=== PATIENT | male | born 1950 | race Caucasian/White ===

== ENCOUNTER 2023-10-05 10:18 | Outpatient (OUT) | payer MEDICARE, MEDICAID, SELFPAY ==
--- NOTE | 2023-10-05 | XR_ITS ---
The [address] [address] Patient Name: GAGANDEEP PARKER MRN: [id number] date: 1950 Sex: M Assigned Patient Location: Current Patient Location: Accession/Order Number: [id number] Exam Date: 10/05/2023 10:50 Report Date: 10/05/2023 12:14 At the request of: JULIAN JOHNSON Procedure: XR foot JONATHAN min 3V EXAMINATION: XR ankle JONATHAN min 3V, XR foot JONATHAN min 3V HISTORY: BILATERAL ANKLE PAIN COMPARISON: No relevant comparison available. FINDINGS: RIGHT FINDINGS: BONES: No acute fracture or dislocation. Mild to moderate degenerative changes most significant at the first metatarsal-phalangeal joint. There is lytic changes and associated heterogeneous soft tissue calcifications along the posterior calcaneus at the Achilles insertion extending to the skin surface SOFT TISSUES: Soft tissue fullness/mass posterior to the calcaneus. Vascular calcifications. OTHER: Negative. LEFT FINDINGS: BONES: No acute fracture or dislocation. Remote fibular fracture fixed with a lateral plate and screws. Mild to moderate degenerative changes with joint space narrowing and marginal osteophyte formation most significant along the ankle. Remote fracture inferior medial malleolus SOFT TISSUES: Vascular calcifications OTHER: Negative. XR/XR foot JONATHAN min 3V IMPRESSION: RIGHT CONCLUSION: Suspected osteomyelitis involving the posterior superior calcaneus at the Achilles insertion LEFT CONCLUSION: No acute abnormality Electronically authenticated by: SABRINA HOOPER Date: 10/05/2023 12:14
--- NOTE | 2023-10-05 | XR_ITS ---
The [address] [address] Patient Name: GAGANDEEP PARKER MRN: [id number] date: 1950 Sex: M Assigned Patient Location: Current Patient Location: Accession/Order Number: [id number] Exam Date: 10/05/2023 10:50 Report Date: 10/05/2023 12:14 At the request of: JULIAN JOHNSON Procedure: XR ankle JONATHAN min 3V EXAMINATION: XR ankle JONATHAN min 3V, XR foot JONATHAN min 3V HISTORY: BILATERAL ANKLE PAIN COMPARISON: No relevant comparison available. FINDINGS: RIGHT FINDINGS: BONES: No acute fracture or dislocation. Mild to moderate degenerative changes most significant at the first metatarsal-phalangeal joint. There is lytic changes and associated heterogeneous soft tissue calcifications along the posterior calcaneus at the Achilles insertion extending to the skin surface SOFT TISSUES: Soft tissue fullness/mass posterior to the calcaneus. Vascular calcifications. OTHER: Negative. LEFT FINDINGS: BONES: No acute fracture or dislocation. Remote fibular fracture fixed with a lateral plate and screws. Mild to moderate degenerative changes with joint space narrowing and marginal osteophyte formation most significant along the ankle. Remote fracture inferior medial malleolus SOFT TISSUES: Vascular calcifications OTHER: Negative. XR/XR ankle JONATHAN min 3V IMPRESSION: RIGHT CONCLUSION: Suspected osteomyelitis involving the posterior superior calcaneus at the Achilles insertion LEFT CONCLUSION: No acute abnormality Electronically authenticated by: SABRINA HOOPER Date: 10/05/2023 12:14
== END 2023-10-05 10:19 | disposition home or self-care (01) ==
PROVIDERS: Family Provider Family Medicine; PCP Nurse Practitioner Adult Health; Visit Provider Podiatrist Foot & Ankle Surgery
DX: M79.671 Pain in right foot (principal); M79.672 Pain in left foot; M25.571 Pain in right ankle and joints of right foot; M25.572 Pain in left ankle and joints of left foot; E11.621 Type 2 diabetes mellitus with foot ulcer; L97.412 Non-pressure chronic ulcer of right heel and midfoot with fat layer exposed; L97.421 Non-pressure chronic ulcer of left heel and midfoot limited to breakdown of skin
CPT/HCPCS: 11043; 73610; 73630; A6213; G0463

== ENCOUNTER 2023-10-20 07:32 | Outpatient (OUT) | payer MEDICARE, MEDICAID, SELFPAY ==
--- NOTE | 2023-10-20 07:38 | MR_ITS ---
The [address] [address] Patient Name: GAGANDEEP PARKER MRN: [id number] date: 1950 Sex: M Assigned Patient Location: MRI Current Patient Location: MRI Accession/Order Number: [id number] Exam Date: 10/20/2023 07:50 Report Date: 10/20/2023 12:22 At the request of: ELIZABETH SNOW Procedure: MR ankle RT wo con EXAM: MR ankle RT wo con REASON FOR EXAM: Chronic Non Healing Ulcer Right Heel. TECHNIQUE: Multiplanar, multisequence imaging of the right ankle was performed without contrast COMPARISON: Radiographs 10/05/2023. FINDINGS: There is deep soft tissue ulceration along the posterior lateral aspect of the calcaneus. There is diffuse abnormal marrow signal involving the posterior calcaneus with cortical destruction consistent with osteomyelitis. No definite evidence of septic arthritis involving the posterior subtalar joint. Chronic tendinosis with high-grade partial tearing of the distal Achilles tendon. The remaining bone marrow signal is without fracture or osteonecrosis. The talar dome appears congruent with intermediate grade chondrosis. The subtalar joint is congruent. The sinus tarsi is mildly edematous, potentially reactive. The midfoot appears congruent. Atrophy and edema the plantar musculature is consistent with denervation. Diffuse probable cellulitis without drainable fluid collection or abscess. There is thickening and intermediate signal of the plantar fascia with an inferior calcaneal spur. A definite tear not identified. Laterally, the peroneal tendons are thickened with intermediate signal consistent with tendinosis. No tear. The superficial peroneal retinaculum is intact. Lateral ligaments are grossly intact. Medially, the medial flexor tendons demonstrate normal thickness and signal without tendinosis or tear. The deep deltoid ligament is intact. The spring ligament is intact. The partially imaged Lisfranc ligament appears intact. Anteriorly, the anterior extensor tendons demonstrate normal thickness and signal without tendinosis or tear. MR/MR ankle RT wo con IMPRESSION: 1. Deep soft tissue ulceration along the posterior aspect of the calcaneus with diffuse abnormal marrow signal of the calcaneus consistent with osteomyelitis. 2. 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 3. Diffuse cellulitis without drainable fluid collection or abscess. 4. Other incidental findings as above. Electronically authenticated by: NEELAM ELLIS Date: 10/20/2023 12:22
== END 2023-10-20 07:33 | disposition home or self-care (01) ==
LOC: MRI 07:32
PROVIDERS: Family Provider Family Medicine; PCP Nurse Practitioner Adult Health; Visit Provider Podiatrist Foot & Ankle Surgery
DX: M86.671 Other chronic osteomyelitis, right ankle and foot (principal); M76.61 Achilles tendinitis, right leg; L03.115 Cellulitis of right lower limb
CPT/HCPCS: 73721

== ENCOUNTER 2023-10-22 09:36 | Outpatient (OUT) | payer MEDICARE, MEDICAID, SELFPAY | END 2023-10-22 09:37 | disposition home or self-care (01) | LOC: WC 09:36 | PROVIDERS: Family Provider Family Medicine; PCP Nurse Practitioner Adult Health; Visit Provider Podiatrist Foot & Ankle Surgery | DX: E11.621 Type 2 diabetes mellitus with foot ulcer (principal); L97.412 Non-pressure chronic ulcer of right heel and midfoot with fat layer exposed | CPT/HCPCS: G0463 ==

== ENCOUNTER 2023-11-05 11:15 | Outpatient (OUT) | payer MEDICARE, MEDICAID, SELFPAY | END 2023-11-05 11:16 | disposition home or self-care (01) | LOC: WC 11:15 | PROVIDERS: Family Provider Family Medicine; PCP Nurse Practitioner Adult Health; Visit Provider Podiatrist Foot & Ankle Surgery | DX: E11.621 Type 2 diabetes mellitus with foot ulcer (principal); L97.412 Non-pressure chronic ulcer of right heel and midfoot with fat layer exposed; L97.421 Non-pressure chronic ulcer of left heel and midfoot limited to breakdown of skin | CPT/HCPCS: 11043; A6213 ==

== ENCOUNTER 2023-11-11 12:25 | Outpatient (OUT) | payer MEDICARE, MEDICAID, SELFPAY ==
--- NOTE | 2023-11-11 12:30 | ECG_ITS ---
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
--- NOTE | 2023-11-11 12:30 | XR_ITS ---
The [address] [address] Patient Name: GAGANDEEP PARKER MRN: [id number] date: 1950 Sex: M Assigned Patient Location: [facility] Current Patient Location: [facility] Accession/Order Number: [id number] Exam Date: 11/11/2023 13:28 Report Date: 11/11/2023 13:45 At the request of: JULIAN JONHSON Procedure: XR chest 2V EXAM: XR chest 2V HISTORY: Preop exam COMPARISON: 04/04/2013 TECHNIQUE: Upright PA and lateral chest x-ray FINDINGS: Heart is not enlarged and the vasculature is not distended. No acute infiltrate, effusion or pneumothorax is identified. Mild flattening of the hemidiaphragms suggest COPD. A relatively remote compression fracture with kyphoplasty is seen in the spine. XR/XR chest 2V IMPRESSION: No acute infiltrate or evidence of cardiac decompensation. Except for the compression fracture and kyphoplasty in the spine, the overall appearance has not changed significantly. Electronically authenticated by: JULIAN KOVACS Date: 11/11/2023 13:45
--- OUTSIDE RECORDS SUMMARY | 2023-11-11 12:33 | XMS_ITS | CCD ---
Author Organization [facility] Care Team Providers Care Cork Insulator Name Role Phone Seth Cummings Unavailable Marcella Christian Unavailable Janine Melvin Unavailable Anglim, ECG TECHNICIAN Kota Primary Care Provider Anglim, ECG TECHNICIAN Kota Attending Provider Anglim, ECG TECHNICIAN Kota Primary Care Provider Anglim, ECG TECHNICIAN Kota Attending Provider MD Brandy Banks Attending Provider Angreece ALANIZ Kota Primary Care Provider UNIQUE SWIFT Referring Unavailable RBANDY BAUTISTA Attending Unavailable UNIQUE SWIFT Referring Unavailable SUZE LEVIN Attending Unavailable Anglim ECG TECHNICIAN-BUSHWALKING GUIDE, Kota A Primary Care Provider Anglim, ECG TECHNICIAN Kota Primary Care Provider Anglim, ECG TECHNICIAN Kota Attending Provider Anglim, ECG TECHNICIAN Kota Primary Care Provider IAIN Wilkes Attending Provider [phone] DO Jose Enrique Almendarez Emergency Provider MD Steven Horta Attending Provider JO VERONICA Referring Unavailable ANGLIM, KOTA A Primary Care Unavailable AMILCAR NORTON Referring Unavailable ANGLIM, KOTA A Primary Care Unavailable YING Presley (WND) Attending Provider [phone] Anglim, Kota Primary Care Unavailable Beau Presley (WND) Admitting Unavailable Beau Presley (WND) Attending Unavailable Anglim, Kota Primary Care Unavailable LangenbergSteven T Admitting Unavailabl e Langenberg, Steven T Attending Unavailabl e Anglim, Kota Primary Care Unavailable Langenberg, Steven T Admitting Unavailabl e Langenberg, Steven T Attending Unavailabl e Anglim, Kota Primary Care Unavailable Anglim, Kota Attending Unavailable Anglim, Kota Admitting Unavailable Anglim, Kota Primary Care Unavailable CopseyMartha Admitting Unavailable CopseySethia Attending Unavailable TupaJose Enrique Attending Unavailable Anglim, Kota Primary Care Unavailable Jose Enrique Almendarez Admitting Unavailable ANGLIM, KOTA A Primary Care Unavailable ANGLIM, KOTA A Primary Care Unavailable MERCYKIRILL SAUCEDA Attending Unavailable MAGALY PATEL Admitting Unavailable ANGLIM, KOTA A Primary Care Unavailable ELLIS MOELLER Attending Unavailab AMILCAR Colón Admitting Unavailable ANGLIM, KOTA A Primary Care Unavailable PADMA BLAIR Attending Unavailable BLAIRPADMA Attending Unavailable BLAIRPADMA Referring Unavailable ANGLIM, KOTA A Primary Care Unavailable BALIRPADMA Attending Unavailable BLAIRPADMA T Referring Unavailable ANGLIM, KOTA A Primary Care Unavailable MERCYKIRILL SAUCEDA Attending Unavailable MERCYKIRILL SAUCEAD Referring Unavailable ANGLIM, KOTA A Primary Care Unavailable ANGLIM, KOTA A Primary Care Unavailable RADHA DUARTE Attending Unavailable YUSRA KOENIG Attending Unavailable YUSRA KOENIG Referring Unavailable ANGLIM, KOTA A Primary Care Unavailable ANGLIM, KOTA A Primary Care Unavailable THAI ORLANDO Attending Unavailable JO VERONICA Attending Unavailable ANGLIM, KOTA A Referring Unavailable ANGLIM, KOTA A Primary Care Unavailable VENUS RAMOS I Attending Unavailable ANGLIM, KOTA A Referring Unavailable ANGLIM, KOTA A Primary Care Unavailable JO VERONICA Attending Unavailable ANGLIM, KOTA A Referring Unavailable ANGLIM, KOTA A Primary Care Unavailable Medications Current Medications Medication Drug Class(es) Dates Sig (Normalized) Sig (Original) 3 ML semaglutide 1.34 MG/ML Pen Injector [Ozempic] (1 source) Start: 11-27-2023 inject 1 mg by subcutaneous injection every week Ozempic (1 MG/DOSE) 4 MG/3ML 1mg Subcutaneous once weekly Apr, Active acetaminophen 300 mg / HYDROcodone bitartrate 7.5 mg oral tablet (20 sources) Opioid Agonist Start: 09-30-2023 take 1 tablet by mouth every six hours Hydrocodone-Acetami nophen Active 1 TAB PO Every 6 hours 20 5 September 30, 2023 Start: 11-07-2020 End: 05-11-2022 take 1 tablet by mouth every four to six hours Hydrocodone-Acetaminophen Discontinued 1 - 2 TAB PO EVERY 4-6 HOURS 30 November 07, 2020 May 11, 2022 12:18pm Start: 08-09-2020 End: 10-25-2020 take 1 tablet by mouth every four hours Hydrocodone-Acetaminophen Discontinued 1 TAB PO Q4H 0 August 09, 2020 October 25, 2020 11:54am Start: 08-08-2020 End: 10-25-2020 take 1 tablet by mouth every four to six hours Hydrocodone-Acetaminophen Discontinued 1 - 2 TAB PO EVERY 4-6 HOURS 50 7 August 08, 2020 October 25, 2020 11:54am Start: 05-27-2016 HYDROcodone-ac etaminophen (NORCO) 5-325 mg per tablet amLODIPine 2.5 mg oral tablet (20 sources) Dihydropyridine Calcium Channel Lori Start: 11-09-2021 take 1 tablet by mouth in the morning amLODIPine (NORVASC) 2.5 mg tablet Take 1 tablet (2.5 mg total) by mouth in the morning. 0 11/09/2021 Active Start: 03-31-2019 take 10 mg by mouth once daily Amlodipine Active 10 MG PO Daily March 31, 2019 12:00am take 1 tablet by roberto th every twenty-four hours amLODIPine Besylate 10 MG 1 tablet Oral Once a day for 30 Active take 1 tablet by roberto th once daily amLODIPine (NORVASC) 5 mg tablet Take 5 mg by mouth once daily. 0 Active Comment on above: Take 5 mg by mouth o nce daily. Arthritis Pain 650 MG (20 sources) take 1 tablet by roberto th every eight hours as needed take 1 tablet by roberto th every eight hours as needed Arthritis Pain 650 MG 1 tablets as neede d Orally every 8 hrs Active busPIRone hydrochloride 10 mg oral tablet (20 sources) Start: 05-11-2022 take 10 mg by mouth once daily Buspirone Active 10 MG PO Daily May 11, 2022 1:00am busPIRone (BUSPA R) 15 mg tablet Take 1 tablet (15 mg total) by mouth in the morning and 1 tablet (15 mg total) before bedtime. One tablet upon awakening and one tablet between 5pm-6pm. 0 Active take 1 tablet by mouth three marialuisa es daily busPIRone (BUSPAR) 10 mg tablet Take 10 mg by mouth three times daily. 0 Active Comment on above: Take 10 mg by mouth three times daily. cefadroxil 500 mg oral capsule (4 sources) Cephalosporin Antibacterial Start: 09-28-19 End: 10-05-19 24 take 500 mg by mouth once daily Cefadroxil Active 500 MG PO Daily September 30, 2023 12:00am docusate sodium 100 mg oral capsule (18 sources) Start: 08-09-19 End: 10-26-19 21 take 1 capsule by mouth twice daily Docusate Sodium (Dok) 100 mg capsule Active 100 MG PO Twice daily October 25, 2020 11:55am donepezil hydrochloride 5 mg oral tablet (20 sources) Start: 05-11-20 22 take 5 mg by mouth once daily Donepezil Active 5 MG PO Daily May 11, 2022 1:00am doxycycline hyclate 100 mg oral capsule (20 sources) Tetracycline-class Drug Start: 09-27-19 take 100 mg by mouth twice daily Doxycycline Hyclate Active 100 MG PO Twice daily September 27, 2023 12:00am Start: 11-07-2020 End: 05-11-2022 take 100 mg by mouth twice daily Doxycycline Hyclate Discontinued 100 MG PO Twice daily 04 01November 07, 2020 12:00am May 11, 2022 12:18pm Start: 01-21-2020 End: 10-25-2020 take 100 mg by mouth twice daily Doxycycline Hyclate Discontinued 100 MG PO Twice daily 16 04January 21, 2020 12:00am October 25, 2020 11:54am take 1 capsule by [facility] every twenty-four hours Doxycycline Hyclate 100 MG 1 capsule Orally Once a day Not-Taking hydrOXYzine pamoate 50 mg oral capsule (18 sources) Antihistamine Vistaril 50 MG 1 capsule as needed Orally hs Active 3 ml insulin aspart, human 100 unt/ml pen injector (18 sources) Insulin Analog Fiasp FlexTouch 100 UNIT/ML 1:10 icr ac tid. 1:40 corrective scale ac tid (hs if >200 half dose) Subcutaneous as directed Active 3 ml insulin detemir 100 unt/ml pen injector (20 sources) Insulin Analog Start: 9 inject 3 [IU] by subcutaneous injection once daily at bedtime Insulin Detemir U-100 (Levemir Flextouch U100 Insulin) 100 unit/mL (3 mL) Insulin Pen Active 3 UNIT SUBCUT Daily at bedtime March 30, 2019 11:00pm Start: 03-31-2019 Insulin Detemi r U-100 (Levemir Flextouch U-100 Insuln) 100 unit/mL (3 mL) Insulin Pen Active 60 UNIT SUBCUT Daily at bedtime March 30, 2019 11:00pm insulin detemir U-100 (LEVEMIR) 100 unit/mL injection Inject under the skin nightly. 0 Active Levemir FlexTouc h 100 UNIT/ML 11 units Subcutaneous hs Active Levemir FlexTouc h 100 UNIT/ML 40 units Subcutaneous hs Active Comment on above: insulin detemir Insu nelli Detemir U-100 Active 17 UNIT Subcutaneous Daily March 31, 2019 10:08am 03-31-2019 [facility] ([id number]) Insulin Detemir U-100 (Levemir Flexpen) 100 unit/mL (3 mL) insulin pen (5 sources) Start: 4 inject 10 [IU] by subcutaneous injection once daily at bedtime Insulin Detemir U-100 (Levemir Flexpen) 100 unit/mL (3 mL) insulin pen Active 10 UNIT SUBCUT Daily at bedtime September 09, 2023 12:00am 3 ml insulin lispro 100 unt/ml pen injector (20 sources) Insulin Analog Start: 1 inject 1 dose by subcutaneous injection twice daily Insulin Lispro (Humalog Kwikpen Insulin) 100 unit/mL Insulin Pen Active 1 sliding scale dose SUBCUT Twice daily October 24, 2020 11:00pm Start: 10-25-2020 inject 5 [IU] by sub cutaneous injection before mealtime Insulin Lispro (Humalog Kwikpen Insulin) 100 unit/mL Insulin Pen Active 5 UNIT SUBCUT before meals October 24, 2020 11:00pm HumaLOG KwikPen 100 UNIT/ML Corrective Scale 1:40 ac TID & hs for BS >200 1/2 dose Subcutaneous ac tid and hs Active Insulin Lispro (Humalog Kwikpen Insulin) 100 unit/mL insulin pen (5 sources) Start: 09-09-2023 Insulin Lispro (Humalog Kwikpen Insulin) 100 unit/mL insulin pen Active 1 sliding scale dose SUBCUT Use as Directed September 09, 2023 12:00am 3 ml insulin lispro 50 unt/ml / insulin lispro protamine, human 50 unt/ml pen injector (2 sources) Insulin Analog insulin lispro protamin-lispro (HumaLOG Mix 50-50 KwikPen) 100 unit/mL (50-50) insulin pen Inject under the skin 2 (two) times a day before meals. 0 Active lamoTRIgine 25 mg oral tablet (20 sources) Mood Stabilizer, Anti-epileptic Agent Start: 05-11-2022 take 25 mg by mouth once daily Lamotrigine Active 25 MG PO Daily May 11, 2022 1:00am take 2 tablets by mouth in the m orning lamoTRIgine (LaMICtal) 25 mg tablet Take 2 tablets (50 mg total) by mouth in the morning. 0 Active lamoTRIgine 25 m g (35) DsPk Take by mouth. Take 25 mg by mouth every other day during Weeks 1 and 2, THEN 25 mg once daily during Weeks 3 and 4, THEN 50 mg once daily during Week 5 0 Active Comment on above: Take by mouth. Take 25 mg by mouth every other day during Weeks 1 and 2, THEN 25 mg once daily during Weeks 3 and 4, THEN 50 mg once daily during Week 5 Levemir FlexTouch 100 UNIT/ML (3 sources) Levemir FlexTouc h 100 UNIT/ML 12 units Subcutaneous hs Active Levemir FlexTouc h 100 UNIT/ML 11 units Subcutaneous hs Active loperamide hydrochloride 2 mg oral tablet (1 source) Opioid Agonist take 1 tablet by mouth four times daily as needed for diarrhea loperamide (IMODIUM A-D) 2 mg tablet Take 1 tablet (2 mg total) by mouth 4 (four) times a day as needed for diarrhea. 0 Active losartan potassium 100 mg oral tablet (20 sources) Angiotensin 2 Receptor Lori Start: 9 take 50 mg by mouth once daily in the morning Losartan Active 50 MG PO Every morning March 31, 2019 12:00am Start: 03-31-2019 take 100 mg by mouth once dc y Losartan Active 100 MG PO Daily March 30, 2019 11:00pm Start: 03-10-2018 End: 03-15-2018 take 12.5 mg by mouth once daily Losartan Discontinued 12.5 MG PO Daily March 10, 2018 12:00am March 15, 2018 8:50am take 2 tablets by mo ut in the morning losartan (COZAAR) 50 mg tablet Take 2 tablets (100 mg total) by mouth in the morning. 0 Active take 1 tablet by roberto th every twelve hours Losartan Potassium 50 MG 1 tablet Orally Twice a day Active take 1 tablet by roberto th every twenty-four hours Losartan Potassium 50 MG 1 tablet Orally Once a day Active Comment on above: Take 50 mg by mouth once daily. magnesium oxide 400 mg oral tablet (1 source) take 1 tablet by mouth in the morning, then take 1 tablet by mouth at bedtime magnesium oxide (MAGOX) 400 mg tablet Take 1 tablet (400 mg total) by mouth in the morning and 1 tablet (400 mg total) before bedtime. 0 Active Magnesium Oxide-Mg Aa Chelate (Magnesium (Oxide/Aa Chelate)) 300 mg capsule (5 sources) Start: 4 take 1 capsule by mouth twice daily Magnesium Oxide-Mg Aa Chelate (Magnesium (Oxide/Aa Chelate)) 300 mg capsule Active 300 CAP PO Twice daily August 19, 2023 1:00am metFORMIN hydrochloride 1000 mg oral tablet (20 sources) Biguanide Start: 4 take 1 tablet by mouth twice daily Metformin Active 1000 MG PO Twice daily August 19, 2023 1:00am FreeTextSig: TAKE 1 TABLET BY MOUTH TWO TIMES A DAY Oral; Note: Source Status: Taking; Provider: Emiliano Randle Start: 08-06-2020 End: 05-11-2022 take 1000 mg by mouth twice daily Metformin Discontinued 1000 MG PO Twice daily August 06, 2020 1:00am May 11, 2022 12:18pm Start: 03-08-2017 End: 08-06-2020 take 1000 mg by mouth twice daily Metformin Discontinued 1000 MG PO Twice daily March 08, 2017 12:00am August 06, 2020 6:18pm take 1 tablet by roberto th twice daily at mealtime metFORMIN (GLUCOPHAGE) 850 mg tablet Take 850 mg by mouth twice daily with meals. 0 Active Comment on above: Take 850 mg by mouth twice daily with meals. 24 hr metoprolol succinate 50 mg extended release oral tablet (20 sources) beta-Adrenergic Lori Start: 03-31-2019 take 50 mg by mouth once daily Metoprolol Succinate Active 50 MG PO Daily March 31, 2019 12:00am Start: 04-04-2018 take 1 tablet by roberto th every twenty-four hours metoprolol succinate ER (TOPROL XL) 50 mg 24 hr tablet Take 50 mg by mouth. 0 04/04/2018 Active take 1 tablet by roberto th every twenty-four hours in the morning metoprolol succinate XL (TOPROL XL) 25 mg 24 hr tablet Take 1 tablet (25 mg total) by mouth in the morning. 0 Active take 1 tablet by roberto th every twenty-four hours Metoprolol Succinate ER 25 MG 1 tablet Orally Once a day for 30 days Active Comment on above: Take 50 mg by mouth. metroNIDAZOLE 375 mg oral capsule (4 sources) Nitroimidazole Antimicrobial Start: 10-05-19 24 take 1 capsule by mouth twice daily Metronidazole (Flagyl) 375 mg capsule Active 375 MG PO Twice daily 16 04October 05, 2023 12:00am Start: 05-04-2016 metroNIDAZOLE (FLAGYL) 500 mg tablet Ozempic (0.25 or 0.5 MG/DOSE) 2 MG/1.5ML (1 source) Ozempic (0.25 or 0.5 MG/DOSE) 2 MG/1.5ML as directed Subcutaneous once weekly Active ozempic (1 mg/dose) 4 mg/3ml solution pen-injector (1 source) Start: 05-24-20 23 inject 1 mg by subcutaneous injection every week Ozempic (1 MG/DOSE) 4 MG/3ML 1mg Subcutaneous once weekly Apr, Active PARoxetine hydrochloride 30 mg oral tablet (20 sources) Serotonin Reuptake Inhibitor Start: 09-09-19 24 take 30 mg by mouth once daily Paroxetine Hcl Active 30 MG PO Daily September 09, 2023 12:00am Start: 08-06-2020 End: 08-19-2023 take 30 mg by mouth once daily Paroxetine Hcl Disconti nued 30 MG PO Daily August 06, 2020 1:00am August 19, 2023 8:41am Start: 08-06-2020 take 20 mg by mouth once daily Paroxetine Hcl Active 20 MG PO Daily August 06, 2020 12:00am Start: 03-10-2018 End: 08-06-2020 take 40 mg by mouth once daily Paroxetine Hcl Disconti nued 40 MG PO Daily March 10, 2018 12:00am August 06, 2020 6:19pm Start: 03-08-2017 End: 03-10-2018 take 1 tablet by mouth once daily Paroxetine Hcl (Paxil) 30 mg Tablet Discontinued 30 MG PO Daily March 08, 2017 12:00am March 10, 2018 12:05pm Comment on above: Take 30 mg by mouth once daily. Polyethylene Glycols (7 sources) Start: 05-11-2022 Polyethylene Glycol Active 1 EACH MISCELLANE Daily May 11, 2022 1:00am Start: 05-11-2022 Polyethylene G lycol Active 1 EACH MISCELLANE Daily May 11, 2022 12:00am potassium chloride 20 meq extended release oral tablet (6 sources) Start: 08-19-2023 take 1 tablet by mouth once daily Potassium Chloride (K-Tab) 20 mEq tablet extended release Active 20 MEQ PO Daily August 19, 2023 1:00am take 1 capsule by mouth in the m orning potassium chloride (MICRO-K) 8 mEq CR capsule Take 1 capsule (8 mEq total) by mouth in the morning and 1 capsule (8 mEq total) before bedtime. 0 Active prazosin 1 mg oral capsule (20 sources) alpha-Adrenergic Lori Start: 05-11-2022 take 1 mg by mouth once daily at bedtime Prazosin Active 1 MG PO Daily at bedtime May 11, 2022 1:00am rosuvastatin calcium 20 mg oral tablet (20 sources) HMG-CoA Reductase Inhibitor Start: 05-11-2022 take 20 mg by mouth once daily Rosuvastatin Active 20 MG PO Daily May 11, 2022 1:00am Comment on above: Take 20 mg by mouth once daily. 1 mg dose 1.5 ml semaglutide 1.34 mg/ml pen injector (20 sources) Start: 05-11-2022 inject 1 mg by subcutaneous injection every week Semaglutide (Ozempic) 1 mg/dose (2 mg/1.5 mL) Pen Injector Active 1 MG SUBCUT every week May 11, 2022 1:00am Start: 07-14-2021 inject 2 mg by subcu taneous injection every week semaglutide (OZEMPIC) 1 mg/dose (2 mg/1.5 mL) pen injector Inject 2 mg under the skin once a week. 0 Active sertraline 100 mg oral tablet (6 sources) Serotonin Reuptake Inhibitor Start: 08-19-2023 take 1 tablet by mouth once daily Sertraline (Zoloft) 100 mg tablet Active 100 MG PO Daily August 19, 2023 1:00am tamsulosin hydrochloride 0.4 mg oral capsule (1 source) alpha-Adrenergic Lori Start: 09-28-2023 End: 10-28-2023 take 1 capsule by mouth once daily tamsulosin (FLOMAX) 0.4 mg capsule Take 1 capsule (0.4 mg total) by mouth nightly for 30 days. 30 capsule 0 09/28/2023 10/28/2023 Active Completed/Discontinued Medications Medication Drug Class(es) Dates Sig (Normalized) Sig (Original) 8 hr acetaminophen 650 mg extended release oral tablet (20 sources) Start: 03-31-2019 End: 05-11-2022 take 1 tablet by mouth twice daily Acetaminophen Discontinued 1 TAB PO Twice daily March 31, 2019 12:00am May 11, 2022 12:19pm take 2 tablets by mo ut every eight hours as needed for pain acetaminophen (TYLENOL ARTHRITIS) 650 mg 8 hr tablet Take 2 tablets (1,300 mg total) by mouth every 8 (eight) hours as needed for pain. 0 Active take 1 capsule by mo uth every six hours as needed Acetaminophen 325 MG 1 capsule as needed Orally every 6 hrs Not-Taking acetaminophen 325 mg / oxyCODONE hydrochloride 5 mg oral tablet (20 sources) Opioid Agonist Start: 08-03-2020 End: 10-25-2020 take 1 tablet by mouth every four to six hours Oxycodone-Acetaminophen (Percocet) 5-325 mg Tablet Discontinued 1 TAB PO EVERY 4-6 HOURS 7 3 August 03, 2020 October 25, 2020 11:54am take 1 tablet by mouth every six hours Percocet 5-325 MG 1 tablet as needed Orally every 6 hrs Not-Taking [id number] 200 actuat albuterol 0.09 mg/actuat metered dose inhaler (20 sources) beta2-Adrenergic Agonist Start: 03-31-2019 albut bony HFA (PROVENTIL HFA, VENTOLIN HFA) 90 mcg/actuation inhaler Albuterol Albuterol Sulfate Active 2 PUFF Inhalation As Directed March 31, 2019 10:06am 03-31-2019 [facility] ([id number]) 0 03/31/2019 Active Start: 03-31-2019 End: 10-25-2020 Albuterol Sulfate (Proventil Hfa) 90 mcg/actuation Hfa Aerosol Inhaler Discontinued 2 PUFF INHALATION As Directed March 31, 2019 12:00am October 25, 2020 11:53am take 1 puff(s) by in halation every four hours as needed Albuterol Sulfate HFA 108 (90 Base) MCG/ACT 1 puff as needed Inhalation every 4 hrs Active take 1 puff(s) by in halation every four hours as needed Albuterol Sulfate HFA 108 (90 Base) MCG/ACT 1 puff as needed Inhalation every 4 hrs Active Comment on above: Albuterol Albuterol Sulfate Active 2 PUFF Inhalation As Directed March 31, 2019 10:06am 03-31-2019 [facility] ([id number]) ARIPiprazole 5 mg oral tablet (20 sources) Atypical Antipsychotic Start: End: take 5 mg by mouth once daily Aripiprazole Discontinued 5 MG PO Daily May 11, 2022 1:00am August 19, 2023 8:42am Start: 11-25-2021 take 1 tablet by roberto th once daily ARIPiprazole (ABILIFY) 2 mg tablet Take 1 tablet (2 mg total) by mouth nightly. 0 11/25/2021 Active ascorbic acid 500 mg oral tablet (9 sources) Vitamin C Start: 08-09-2020 End: 10-25-2020 take 1 tablet by mouth once daily Ascorbic Acid (Vitamin C) (Vitamin C) 500 mg Tablet Discontinued 500 MG PO Daily 0 August 09, 2020 1:00am October 25, 2020 11:53am Aspir-81 (14 sources) Aspir-81 Not-Robert ing aspirin 81 mg chewable tablet (10 sources) Platelet Aggregation Inhibitor, Nonsteroidal Anti-inflammatory Drug Start: 03-31-2019 End: 10-25-2020 take 81 mg by mouth once daily Aspirin Discontinued 81 MG PO Daily March 31, 2019 12:00am October 25, 2020 11:53am aspirin, enteric coated (ASPIRIN, ENTERIC COATED) 81 mg EC tablet Take 81 mg by mouth. 0 Active Comment on above: Take 81 mg by mouth. atorvastatin 40 mg oral tablet (20 sources) HMG-CoA Reductase Inhibitor Start: 03-10-20 End: 08-19-19 take 40 mg by mouth once daily Atorvastatin Discontinued 40 MG PO Daily October 25, 2020 12:00am August 19, 2023 8:42am Comment on above: Take 40 mg by mouth once daily. atropine sulfate 0.025 mg / diphenoxylate hydrochloride 2.5 mg oral tablet (20 sources) Anticholinergic, Cholinergic Muscarinic Antagonist, Antidiarrheal Start: 10-26-19 End: 05-11-20 take 1 tablet by mouth once daily Diphenoxylate-Atropi ne (Lomotil) 2.5-0.025 mg Tablet Discontinued 1 TAB PO Daily October 25, 2020 12:00am May 11, 2022 12:19pm Start: 07-14-2019 take 1 tablet by roberto th four times daily as needed diphenoxylate-atropine (LOMOTIL) 2.5-0.025 mg per tablet Indications: Malignant neoplasm of colon, unspecified part of colon (HCC) Take 1 tablet by mouth four times daily as needed for up to 60 days. 120 tablet 1 07/14/2019 Active Start: 03-08-2017 End: 03-10-2018 Diphenoxylate-Atropine Disco ntinued TABLET March 08, 2017 12:00am March 10, 2018 12:04pm Comment on above: Take 1 tablet by roberto th four times daily as needed for up to 60 days. brimonidine tartrate 1.5 mg/ml ophthalmic solution (8 sources) alpha-Adrenergic Agonist Start: 05-11-2022 End: 08-19-2023 take 1 drop(s) into the eye(s) three times daily Brimonidine Discontinued 1 DROPS EYE-BOTH Three times daily May 11, 2022 1:00am August 19, 2023 8:42am take 0.1 drop(s) int o the eye(s) three times daily brimonidine (ALPHAGAN P) 0.1 % drop Use 1 Drop in both eyes three times daily. 0 Active Comment on above: Use 1 Drop in both e yes three times daily. calcium carbonate 625 mg / cholecalciferol 125 unt oral tablet (1 source) Vitamin D Start: 0 take 2 tablets by mouth twice daily calcium-cholecalcife rol, D3, (OSCAL+D 250) 250-125 mg-unit per tablet Take 2 tablets by mouth twice daily. 120 tablet 5 07/05/2019 Active Comment on above: Take 2 tablets by mo uth twice daily. Calcium Carbonate-Vitamin D3 (Oyster Shell Calcium-Vit D3) 500 mg(1,250mg) -200 unit Tablet (9 sources) Start: End: 2 take 1 tablet by mouth once at mealtime Calcium Carbonate-Vitamin D3 (Oyster Shell Calcium-Vit D3) 500 mg(1,250mg) -200 unit Tablet Discontinued 1 TAB PO 3x/Day with meals 0 August 09, 2020 1:00am May 11, 2022 12:19pm Start: 08-09-2020 End: 05-11-2022 take 1 tablet by mouth once at mealtime Calcium Carbonate-Vitamin D3 (Oyster Shell Calcium-Vit D3) 500 mg(1,250mg) -200 unit Tablet Discontinued 1 TAB PO 3x/Day with meals 0 August 09, 2020 12:00am May 11, 2022 11:19am Start: 08-09-2020 take 1 tablet by roberto th once at mealtime Calcium Carbonate-Vitamin D3 (Oyster Shell Calcium-Vit D3) 500 mg(1,250mg) -200 unit Tablet Active 1 TAB PO 3x/Day with meals 0 August 09, 2020 12:00am Start: 08-09-2020 take 1 tablet by roberto th once at mealtime Calcium Carbonate-Vitamin D3 (Oyster Shell Calcium-Vit D3) 500 mg(1,250mg) -200 unit Tablet Active 1 TAB PO 3x/Day with meals 0 August 09, 2020 1:00am cephalexin 500 mg oral capsule (5 sources) Cephalosporin Antibacterial Start: 08-28-2023 End: 09-09-2023 take 500 mg by mouth every eight hours Cephalexin Discontinued 500 MG PO Every 8 hours 30 August 28, 2023 1:00am September 09, 2023 11:27am cloNIDine hydrochloride 0.1 mg oral tablet (1 source) Central alpha-2 Adrenergic Agonist Start: 04-21-2016 cloNIDine HCl (CATAPRES) 0.1 mg tablet enteric contrast (radiology procedure) (1 source) Start: 08-03-2017 enteric contrast (radiology procedure) For CT CHESTABD/PEL W IVCON Routine order Administer, As Directed One Time Only, via Oral, Rectal, both Oral and Rectal, Enteric Tube, Stoma or Indwelling Catheter, Enteric Contrast as designated per enteric contrast guidelines 1 Each 0 08/03/2017 Active Comment on above: For CT CHESTABD/PEL W IVCON Routine order Administer, As Directed One Time Only, via Oral, Rectal, both Oral and Rectal, Enteric Tube, Stoma or Indwelling Catheter, Enteric Contrast as designated per enteric contrast guidelines enteric contrast (will be provided with radiology test) (3 sources) Start: 07-05-2019 enteric contrast (will be provided with radiology test) For CT CHESTABD/PEL W IVCON Routine order Administer, As Directed One Time Only, via Oral, Rectal, both Oral and Rectal, Enteric Tube, Stoma or Indwelling Catheter, Enteric Contrast as designated per enteric contrast guidelines 1 Each 0 07/05/2019 Active Start: 12-26-[address] (will be provided with radiology test) For CT CHESTABD/PEL W IVCON Routine order Administer, As Directed One Time Only, via Oral, Rectal, both Oral and Rectal, Enteric Tube, Stoma or Indwelling Catheter, Enteric Contrast as designated per enteric contrast guidelines 1 Each 0 12/26/2018 Active Start: 12-15-[address] (will be provided with radiology test) For CT CHESTABD/PEL W IVCON Routine order Administer, As Directed One Time Only, via Oral, Rectal, both Oral and Rectal, Enteric Tube, Stoma or Indwelling Catheter, Enteric Contrast as designated per enteric contrast guidelines 1 Each 0 12/15/2017 Active Comment on above: For CT CHESTABD/PEL W IVCON Routine order Administer, As Directed One Time Only, via Oral, Rectal, both Oral and Rectal, Enteric Tube, Stoma or Indwelling Catheter, Enteric Contrast as designated per enteric contrast guidelines gabapentin 600 mg oral tablet (20 sources) Anti-epileptic Agent Start: 9 End: take 600 mg by mouth twice daily Gabapentin Discontinued 600 MG PO Twice daily March 31, 2019 12:00am May 11, 2022 12:13pm Start: 03-10-2018 take 600 mg by mouth three times daily, then take 900 mg by mouth at bedtime Gabapentin Active 300 MG PO Three times daily March 10, 2018 12:00am in addition to 600mg for total of 900mg at HS Start: 02-08-2017 gabapentin (NE URONTIN) 300 mg capsule 600 mg. 0 02/08/2017 Active take 1 capsule by mo uth three times daily gabapentin (NEURONTIN) 300 mg capsule Take 1 capsule (300 mg total) by mouth 3 (three) times a day. 0 Active Comment on above: 600 mg. glyBURIDE 5 mg oral tablet (17 sources) Sulfonylurea Start: 05-11-2022 End: 08-19-2023 take 5 mg by mouth twice daily Glyburide Discontinued 5 MG PO Twice daily May 11, 2022 1:00am August 19, 2023 8:42am Start: 03-10-2018 End: 03-31-2019 take 5 mg by mouth twice daily Glyburide Discontinued 5 MG PO Twice daily March 10, 2018 12:00am March 31, 2019 11:16am Comment on above: Take 5 mg by mouth. Handicap plackeyur as directe d (14 sources) Start: 08-05-2020 Start: 08-05-2020 Handicap placa rds as directed expires 06/27/2021 as directed Jul, Active hydroCHLOROthiazide 12.5 mg oral tablet (20 sources) Thiazide Diuretic Start: 03-10-2018 take 2 tablets by mouth every twenty-four hours hydroCHLOROthiazide (HYDRODIURIL, ESIDRIX) 12.5 mg tablet Take 25 mg by mouth q 24 HR. 0 03/10/2018 Active Start: 03-10-2018 take 25 mg by mouth once daily Hydrochlorothiazide Active 25 MG PO Daily March 10, 2018 12:00am take 1 tablet by roberto th once daily hydroCHLOROthiazide (HYDRODIURIL) 25 mg tablet Take 1 tablet (25 mg total) by mouth daily. 0 Active Comment on above: Take 25 mg by mouth q 24 HR. hydroCHLOROthiazide 12.5 mg / losartan potassium 100 mg oral tablet (19 sources) Thiazide Diuretic, Angiotensin 2 Receptor Lori Start: End: take 1 tablet by mouth once daily Losartan-Hydrochlor othiazide Discontinued 1 TAB PO Daily March 15, 2018 12:00am March 31, 2019 11:11am Start: 03-08-2017 End: 03-10-2018 Losartan-Hydrochlorothiazide Discontinued TABLET March 08, 2017 12:00am March 10, 2018 12:00pm take 1 tablet by roberto th once daily losartan-hydrochlorothiazide (HYZAAR) 50-12.5 mg per tablet Take 1 tablet by mouth once daily. 0 Active Comment on above: Take 1 tablet by roberto th once daily. Insulin Detemir U-100 (Levemir Flextouch U100 Insulin) 100 unit/mL (3 mL) Insulin Pen (5 sources) Start: End: inject 3 [IU] by subcutaneous injection once daily at bedtime Insulin Detemir U-100 (Levemir Flextouch U100 Insulin) 100 unit/mL (3 mL) Insulin Pen Discontinued 3 UNIT SUBCUT Daily at bedtime March 31, 2019 12:00am August 19, 2023 8:42am Insulin Lispro (Humalog Kwikpen Insulin) 100 unit/mL Insulin Pen (5 sources) Start: End: inject 1 dose by subcutaneous injection twice daily Insulin Lispro (Humalog Kwikpen Insulin) 100 unit/mL Insulin Pen Discontinued 1 sliding scale dose SUBCUT Twice daily October 25, 2020 12:00am August 19, 2023 8:42am iv contrast (radiology procedure) (1 source) Start: iv contrast (radiology procedure) CT Chest ABD/PEL-Inject, intravenously, once for 1 dose.No IV access, insert saline lock prior to the beginning of sedation, infusion, injection of imaging exam. Discontinue saline lock post exam. If Pt. has a central line or IVAD, may access for administration according to line specific nursing protocol. Once exam is complete flush line and de-access according to line specific nursing protocol in the CT contrast administration guidelines link. 1 Each 0 08/03/2017 Active Comment on above: CT Chest ABD/PEL-Inj ect, intravenously, once for 1 dose.No IV access, insert saline lock prior to the beginning of sedation, infusion, injection of imaging exam. Discontinue saline lock post exam. If Pt. has a central line or IVAD, may access for administration according to line specific nursing protocol. Once exam is complete flush line and de-access according to line specific nursing protocol in the CT contrast administration guidelines link. iv contrast (will be provided with radiology test) (3 sources) Start: iv contrast (will be provided with radiology test) CT Chest ABD/PEL-Inject, intravenously, once for 1 dose.No IV access, insert saline lock prior to the beginning of sedation, infusion, injection of imaging exam. Discontinue saline lock post exam. If Pt. has a central line or IVAD, may access for administration according to line specific nursing protocol. Once exam is complete flush line and de-access according to line specific nursing protocol in the CT contrast administration guidelines link. 1 Each 0 07/05/2019 Active Start: 12-26-2018 iv contrast (w ill be provided with radiology test) CT Chest ABD/PEL-Inject, intravenously, once for 1 dose.No IV access, insert saline lock prior to the beginning of sedation, infusion, injection of imaging exam. Discontinue saline lock post exam. If Pt. has a central line or IVAD, may access for administration according to line specific nursing protocol. Once exam is complete flush line and de-access according to line specific nursing protocol in the CT contrast administration guidelines link. 1 Each 0 12/26/2018 Active Start: 12-15-2017 iv contrast (w ill be provided with radiology test) CT Chest ABD/PEL-Inject, intravenously, once for 1 dose.No IV access, insert saline lock prior to the beginning of sedation, infusion, injection of imaging exam. Discontinue saline lock post exam. If Pt. has a central line or IVAD, may access for administration according to line specific nursing protocol. Once exam is complete flush line and de-access according to line specific nursing protocol in the CT contrast administration guidelines link. 1 Each 0 12/15/2017 Active Comment on above: CT Chest ABD/PEL-Inj ect, intravenously, once for 1 dose.No IV access, insert saline lock prior to the beginning of sedation, infusion, injection of imaging exam. Discontinue saline lock post exam. If Pt. has a central line or IVAD, may access for administration according to line specific nursing protocol. Once exam is complete flush line and de-access according to line specific nursing protocol in the CT contrast administration guidelines link. latanoprost 0.05 mg/ml ophthalmic solution (8 sources) Prostaglandin Analog Start: 05-11-20 End: 08-19-19 take 1 drop(s) into the eye(s) once daily at bedtime Latanoprost Discontinued 1 DROPS EYE-BOTH Daily at bedtime May 11, 2022 1:00am August 19, 2023 8:42am take 1 drop(s) into the eye(s) once daily at bedtime latanoprost (XALATAN) 0.005 % ophthalmic solution Use 1 Drop in both eyes daily at bedtime. 0 Active Comment on above: Use 1 Drop in both e yes daily at bedtime. 3 ml liraglutide 6 mg/ml pen injector (20 sources) GLP-1 Receptor Agonist Start: 05-11-20 End: 08-19-19 inject 1.8 mg by subcutaneous injection once daily Liraglutide Discontinued 1.8 MG SUBCUT Daily May 11, 2022 1:00am August 19, 2023 8:42am Start: 03-31-2019 End: 10-25-2020 Liraglutide (Victoza 3-Meghan) 0.6 mg/0.1 mL (18 mg/3 mL) Pen Injector Discontinued 1.8 MG SUBCUT Daily March 31, 2019 12:00am October 25, 2020 11:55am Start: 03-08-2017 End: 03-31-2019 inject 1.8 [IU] by subcutaneous injection once daily Liraglutide Discontinued 1.8 UNITS SUBCUT Daily March 08, 2017 12:00am March 31, 2019 11:10am Yolette villalobos Comment on above: Inject 3 mL subcutan eously once daily. OLANZapine 2.5 mg oral tablet (1 source) Atypical Antipsychotic Start: 2016 take 1 tablet by mouth once daily at bedtime OLANZapine (ZYPREXA) 2.5 mg tablet Take 1 tablet by mouth daily at bedtime. 30 tablet 5 10/06/2016 Active Comment on above: Take 1 tablet by roberto th daily at bedtime. ondansetron 8 mg oral tablet (10 sources) Serotonin-3 Receptor Antagonist Start: 2015 End: 2017 Ondansetron Hcl (Zofran (As Hydrochloride)) 8 mg Tablet Discontinued TABLET March 08, 2017 12:00am March 10, 2018 12:04pm Comment on above: Take 1 tablet by roberto th every 8 hours as needed. polyethylene glycol 3350 11866 mg powder for oral solution (10 sources) Osmotic Laxative Start: 2020 End: 2020 Polyethylene Glycol 3350 (Miralax) 17 gram Powder In Packet Discontinued 17 GM PO Daily 0 August 09, 2020 1:00am October 25, 2020 11:54am Comment on above: Take 17 g by mouth o nce daily. prochlorperazine 10 mg oral tablet (1 source) Phenothiazine Start: 2016 take 1 tablet by mouth every four hours as needed prochlorperazine (COMPAZINE) 10 mg tablet Take 1 tablet by mouth every 4 hours as needed. 120 tablet 5 06/30/2016 Active Comment on above: Take 1 tablet by roberto th every 4 hours as needed. QUEtiapine 50 mg oral tablet (1 source) Atypical Antipsychotic take 1 tablet by mouth twice daily QUEtiapine (SEROQUEL) 50 mg tablet Take 50 mg by mouth twice daily. 0 Active Comment on above: Take 50 mg by mouth twice daily. sildenafil 100 mg oral tablet (1 source) Phosphodiesterase 5 Inhibitor Start: 2019 sildenafil (VIAGRA) 100 mg tablet Take 1 tablet by mouth as needed. 10 tablet 0 07/05/2019 Active Comment on above: Take 1 tablet by roberto th as needed. tiotropium 0.018 mg inhalation powder (20 sources) Anticholinergic Start: 2018 tiotropium (SPIRIVA) 18 mcg inhalation capsule tiotropium Tiotropium [place] Active 2 PUFF Inhalation Daily March 31, 2019 10:06am 03-31-2019 [facility] ([id number]) 0 03/31/2019 Active Start: 03-31-2019 End: 05-11-2022 take 1 puff(s) by inhalation once daily Tiotropium [place] (Spiriva With Handihaler) 18 mcg Capsule, W/Inhalation Device Discontinued 2 PUFF INHALATION Daily March 31, 2019 12:00am May 11, 2022 12:18pm take 1 capsule by in halation once daily Spiriva HandiHaler 18 MCG 1 capsule by inhaling the contents of the capsule using the HandiHaler device Inhalation Once a day Active Comment on above: tiotropium Tiotropiu m [place] Active 2 PUFF Inhalation Daily March 31, 2019 10:06am 03-31-2019 [facility] ([id number]) vitamin b12 0.1 mg oral tablet (7 sources) Vitamin B12 Start: 05-11-2022 End: 08-19-2023 take 100 ug by mouth once daily Cyanocobalamin (Vitamin B-12) Discontinued 100 MCG PO Daily May 11, 2022 1:00am August 19, 2023 8:42am Vitamin B12 1000 MCG (14 sources) take 1 tablet by mouth once daily Vitamin B12 1000 MCG 1 tablet Orally Once a day Not-Taking take 1 tablet by mouth once dc y take 1 tablet by mouth once dc y Vitamin B12 1000 MCG 1 tablet Orally Once a day Active Problems Active Problems Problem Classification Problem Date Documented Da te Episodic/Chronic Abdominal pain (1 source) Abdominal pain Onset: 11-04-2023 Episodic Administrative/social admission (7 sources) Dietary counseling and surveillance Onset: 07-14-2021 Resolved: 08-26-2021 Episodic Cancer of colon (4 sources) Malignant tumor of descending colon; Translations: [Malignant neoplasm of descending colon] Onset: 03-31-2016 Chronic Cancer of colon (9 sources) History of malignant neoplasm of colon; Translations: [Personal history of other malignant neoplasm of large intestine] 03-15-2018 Episodic Chronic obstructive pulmonary disease and bronchiectasis (12 sources) Chronic obstructive lung disease; Translations: [Chronic obstructive pulmonary disease, unspecified] Onset: 11-09-2022 06-26-2023 Chronic Chronic ulcer of skin (20 sources) 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; Translations: [Ulcer of left heel] Onset: 09-30-2023 08-19-2023 Chronic Complication of device; implant or graft (3 sources) Other mechanical complication of indwelling urethral catheter, initial encounter; Translations: [Unspecified complication of genitourinary prosthetic device, implant and graft, initial encounter] Onset: 11-04-2023 Episodic Complications of surgical procedures or medical care (3 sources) Anemia due to antineoplastic chemotherapy; 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] Onset: 06-30-2016 06-30-2016 Chronic Coronary atherosclerosis and other heart disease (2 sources) Coronary atherosclerosis; Translations: [Atherosclerotic heart disease of [place] coronary artery with other forms of angina pectoris] Onset: 04-04-2018 06-26-2023 Chronic Coronary atherosclerosis and other heart disease (1 source) Coronary atherosclerosis and other heart disease; Translations: [Atherosclerosis of [place] arteries of right leg with ulceration of heel and midfoot] Onset: 08-26-2023 Diabetes mellitus with complications (20 sources) Hypoglycemia due to type 2 diabetes mellitus; Translations: [Type 2 diabetes mellitus with hypoglycemia without coma] Onset: 07-14-2021 Resolved: 08-26-2021 Chronic Diabetes mellitus without complication (16 sources) Diabetes mellitus; Translations: [Type 2 diabetes mellitus without complications] 08-05-2020 Chronic Disorders of lipid metabolism (20 sources) Hyperlipidemia; Translations: [Hyperlipidemia, unspecified] Onset: 07-14-2021 Resolved: 08-26-2021 Chronic Essential hypertension (20 sources) Hypertensive disorder; Translations: [Essential (primary) hypertension] Onset: 07-14-2021 Resolved: 08-26-2021 Chronic Fluid and electrolyte disorders (1 source) Dehydration; Translations: [Dehydration] Onset: 10-08-2023 Episodic Fracture of lower limb (20 sources) Fracture of fibula; Translations: [Unspecified fracture of shaft of unspecified fibula, initial encounter for closed fracture] 08-03-2020 Episodic Genitourinary symptoms and ill-defined conditions (1 source) Encounter for fitting and adjustment of urinary device; Translations: [Encounter for fitting and adjustment of urinary device] Onset: 09-13-2023 Chronic Genitourinary symptoms and ill-defined conditions (5 sources) Retention of urine; Translations: [Retention of urine, unspecified] Onset: 09-28-2023 09-28-2023 Episodic Glaucoma (2 sources) Glaucoma; Translations: [Unspecified glaucoma] 03-30-2018 Chronic Hyperplasia of prostate (5 sources) Retention of urine; Translations: [Benign prostatic hyperplasia with lower urinary tract symptoms] 09-05-2023 Chronic Intestinal obstruction without hernia (10 sources) Stricture of colon; Translations: [Other intestinal obstruction unspecified as to partial versus complete obstruction] Onset: 10-29-2023 03-15-2018 Episodic Nausea and vomiting (2 sources) Nausea; Translations: [Vomiting] Onset: 10-08-2023 Episodic Nonspecific chest pain (2 sources) Chest pain; Translations: [Chest pain, unspecified] 03-30-2018 Episodic Nutritional deficiencies (20 sources) Vitamin D deficiency; Translations: [Vitamin D deficiency, unspecified] Chronic Nutritional deficiencies (7 sources) Deficiency of other specified B group vitamins Onset: 07-14-2021 Resolved: 08-26-2021 Episodic Open wounds of extremities (1 source) Unspecified open wound, right foot, initial encounter Episodic Other aftercare (20 sources) Long-term current use of insulin; 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] Episodic Other aftercare (7 sources) retirement (current) use of insulin Onset: 07-14-2021 Resolved: 08-26-2021 Episodic Other and ill-defined cerebrovascular disease (2 sources) Cerebral arterial aneurysm; Translations: [Cerebral aneurysm, nonruptured] Onset: 01-28-2022 01-28-2022 Chronic Other gastrointestinal disorders (1 source) Constipation, unspecified; Translations: [Constipation, unspecified] Onset: 10-29-2023 Episodic Other gastrointestinal disorders (1 source) Constipation Onset: 10-29-2023 Episodic Other injuries and conditions due to external causes (9 sources) Hematoma; Translations: [Other injury of unspecified body region, initial encounter] 01-21-2020 Episodic Other injuries and conditions due to external causes (9 sources) Contusion; Translations: [Other injury of unspecified body region, initial encounter] 01-21-2020 Episodic Other nervous system disorders (9 sources) Neuropathy; Translations: [Polyneuropathy, unspecified] 08-05-2020 Chronic Other nervous system disorders (5 sources) Polyneuropathy, unspecified; Translations: [Mononeuritis of unspecified site] 09-09-2023 Chronic Other nervous system disorders (9 sources) Pain in limb; Translations: [Other acute postprocedural pain] 08-08-2020 Episodic Other nutritional; endocrine; and metabolic disorders (1 source) Hypomagnesemia; Translations: [Hypomagnesemia] Onset: 06-26-2023 Chronic Other nutritional; endocrine; and metabolic disorders (3 sources) Body mass index (BMI) 27.0-27.9, adult Episodic Other nutritional; endocrine; and metabolic disorders (2 sources) Body mass index (BMI) 26.0-26.9, adult Episodic Peripheral and visceral atherosclerosis (20 sources) Peripheral vascular disease, unspecified; Translations: [Peripheral arterial disease] Onset: 09-13-2023 08-19-2023 Chronic Residual codes; unclassified (5 sources) At risk for impaired skin integrity ; Translations: [Other specified personal risk factors, not elsewhere classified] 08-19-2023 Episodic Residual codes; unclassified (5 sources) Other specified personal risk factors, not elsewhere classified; Translations: [Other specified conditions influencing health status] 09-09-2023 Episodic Unclassified (1 source) Retention of urine, unspecified; Translations: [Retention of urine, unspecified] Onset: 08-28-2023 Unclassified (1 source) Difficulty Urinating Onset: 11-07-2023 Unclassified (1 source) Urinary Catheter Insertion or Check Onset: 09-13-2023 Unclassified (1 source) Catheter Inserition Problem Onset: 09-13-2023 Urinary tract infections (6 sources) Urinary tract infectious disease; Translations: [Urinary tract infection, site not specified] Onset: 11-04-2023 09-05-2023 Episodic Viral infection (1 source) COVID-19; Translations: [COVID-19] Onset: 06-26-2023 Past or Other Problems Problem Classification Problem Date Documented Date Episodic/Chronic Malaise and fatigue (11 sources) Asthenia; Translations: [Weakness] Onset: 06-26-2023 08-19-2023 Episodic Mood disorders (2 sources) Mood disorders Onset: 01-28-2022 01-28-2022 Other fractures (2 sources) Fracture of third lumbar vertebra; Translations: [Unspecified fracture of third lumbar vertebra, initial encounter for closed fracture] Onset: 05-15-2018 05-15-2018 Episodic Other nervous system disorders (1 source) Tremor, unspecified; Translations: [Tremor, unspecified] Onset: 06-26-2023 Episodic Other nutritional; endocrine; and metabolic disorders (1 source) Body mass index (BMI) 29.0-29.9, adult Onset: 07-14-2021 Resolved: 07-14-2021 Episodic Other nutritional; endocrine; and metabolic disorders (1 source) Body mass index (BMI) 28.0-28.9, adult Onset: 08-26-2021 Resolved: 08-26-2021 Episodic Other screening for suspected conditions (not mental disorders or infectious disease) (1 source) Abnormal electrocardiogram [ECG] [EKG]; Translations: [Abnormal electrocardiogram (ECG) (EKG)] Onset: 06-26-2023 Episodic Residual codes; unclassified (1 source) Altered mental status, unspecified; Translations: [Altered mental status, unspecified] Onset: 06-26-2023 Episodic Residual codes; unclassified (1 source) Altered mental status Onset: 06-26-2023 Episodic Viral infection (2 sources) Disease caused by 2019-nCoV; Translations: [COVID-19] Onset: 06-26-2023 06-26-2023 Episodic Results Test Name Value Interpretation Reference Range Facility URINE CULTUREon 11-07-2023 Bacteria identified Cx Nom (U) CULTURE RESULTS >100,000 ORGANISMS/mL PSEUDOMONAS AERUGINOSA <10,000 ORGANISMS/mL NORMAL URO GENITAL POLO [ S = SUSCEPTIBLE R = RESISTANT I = INTERMEDIATE S-DO = Susceptible-dose dependent NS = Non-suscceptible NO = No Interpretation ] Organism: PSEUDOMONAS AERUGINOSA Antibiotic Interpretation BEAU Status AMIKACIN S 4 F CEFEPIME I 16 F CIPROFLOXACIN R >=4 F LEVOFLOXACIN R >=8 F MEROPENEM UNK 4 F CLSI interpretation for Meropenem and Pseudomonas aeruginosa with an M.I.C. value of 4 is Intermediate. PIPERACILLIN R >=128 F TOBRAMYCIN S <=1 F MULTIDRUG RESISTANCE/MDRO A F MULTIDRUG RESISTANCE/MDRO MULTI DRUG RESISTANT ORGANISM F Normal [facility] Comment on above: Performed By: #### C BCA, PINR, 78703-9, BMP, 3040-3, 48564-3, 5643-2, LIVR, 53317-7, 00818-2, THYR, 85144-7, 58525-9 #### [facility] ([id number]) [address] [place] [address] [place] [address] URN MACROSCOPIC NURon 2023 BILIRUBIN TORRES Negative Normal NEG [facility] Comment on above: Performed By: #### C BCA, PINR, 29648-2, BMP, 3040-3, 26185-5, 5643-2, LIVR, 73454-3, 71814-7, THYR, 82316-4, 13080-7 #### [facility] ([id number]) [address] [place] [address] [place] [address] BLOOD/HGB TORRES Trace Abnormal NEG [facility] Comment on above: Performed By: #### C BCA, PINR, 58600-9, BMP, 3040-3, 23574-1, 5643-2, LIVR, 45093-0, 76990-5, THYR, 31436-1, 70255-9 #### [facility] ([id number]) [address] [place] [address] [place] [address] GLUCOSE TORRES Negative Normal NEG [facility] Comment on above: Performed By: #### C BCA, PINR, 87728-4, BMP, 3040-3, 46600-2, 5643-2, LIVR, 98653-8, 26988-9, THYR, 10120-3, 87148-3 #### [facility] ([id number]) [address] [place] [address] [place] [address] KETONES TORRES Negative Normal NEG [facility] Comment on above: Performed By: #### C BCA, PINR, 49211-7, BMP, 3040-3, 55536-3, 5643-2, LIVR, 70138-4, 27494-1, THYR, 06304-8, 72939-9 #### [facility] ([id number]) [address] [place] [address] [place] [address] LEUKOCYTE ESTERASE TORRES Small Abnormal [facility]G [facility] Comment on above: Performed By: #### C BCA, PINR, 08981-8, BMP, 3040-3, 14943-3, 5643-2, LIVR, 88614-2, 63940-7, THYR, 45440-7, 75541-1 #### [facility] ([id number]) [address] [place] [address] [place] [address] NITRITE TORRES Positive Abnormal NEG [facility] Comment on above: Performed By: #### C BCA, PINR, 70351-9, BMP, 3040-3, 37715-8, 5643-2, LIVR, 60989-9, 17958-6, THYR, 60359-0, 75441-7 #### [facility] ([id number]) [address] [place] [address] PH TORRES 5.5 Normal 5.0-8.5 [facility] Comment on above: Performed By: #### C BCA, PINR, 49053-3, BMP, 3040-3, 53382-4, 5643-2, LIVR, 66422-1, 53489-3, THYR, 52750-5, 94376-6 #### [facility] ([id number]) [address] [place] [address] PROTEIN TORRES Trace Abnormal NEG [facility] Comment on above: Performed By: #### C BCA, PINR, 71923-8, BMP, 3040-3, 58724-8, 5643-2, LIVR, 30667-2, 50775-7, THYR, 86801-7, 89302-3 #### [facility] ([id number]) [address] [place] [address] SPECIFIC GRAVITY TORRES 1.025 Normal 1.003-1.035 [facility] Comment on above: Performed By: #### C BCA, PINR, 45289-0, BMP, 3040-3, 99209-4, 5643-2, LIVR, 62477-8, 17783-0, THYR, 46839-3, 27585-6 #### [facility] ([id number]) [address] [place] [address] UROBILINOGEN TORRES 0.2 eu/dL Normal <1.1 [facility] Comment on above: Performed By: #### C BCA, PINR, 32138-4, BMP, 3040-3, 85611-7, 5643-2, LIVR, 93720-8, 24721-8, THYR, 74726-3, 69038-1 #### [facility] ([id number]) [address] [place] [address] 50596 BASIC METABOLIC PANLon 11-03 Anion gap [Moles/Vol] 14 mmol/L Normal 5-15 [facility] Comment on above: Performed By: #### C BCA, PINR, 95499-2, BMP, 3040-3, 70948-2, 5643-2, LIVR, 91585-1, 11628-7, THYR, 51353-5, 27818-9 #### [facility] ([id number]) [address] [place] [address] 37939 Calcium [Mass/Vol] 9.6 mg/dL Normal 8.5-10.5 [facility] Comment on above: Performed By: #### C BCA, PINR, 67937-8, BMP, 3040-3, 67537-9, 5643-2, LIVR, 90475-4, 53447-7, THYR, 56802-6, 29669-8 #### [facility] ([id number]) [address] [place] [address] 12157 Chloride [Moles/Vol] 102 mmol/L Normal 98-109 [facility] Comment on above: Performed By: #### C BCA, PINR, 47975-0, BMP, 3040-3, 44283-8, 5643-2, LIVR, 59362-7, 59534-7, THYR, 23228-5, 16168-9 #### [facility] ([id number]) [address] [place] [address] CO2 [Moles/Vol] 21 mmol/L Low 22-32 [facility] Comment on above: Performed By: #### C BCA, PINR, 23655-1, BMP, 3040-3, 57692-3, 5643-2, LIVR, 38448-6, 95808-9, THYR, 89129-2, 28620-3 #### [facility] ([id number]) [address] [place] [address] 80423 Creatinine [Mass/Vol] 0.94 mg/dL Normal 0.70-1.20 [facility] Comment on above: Result Comment: METH OD TRACEABLE TO IDMS STANDARD Performed By: #### C BCA, PINR, 02627-0, BMP, 3040-3, 59598-1, 5643-2, LIVR, 72134-2, 04687-1, THYR, 28313-9, 65273-6 #### [facility] ([id number]) [address] [place] [address] 01054 GFR/1.73 sq M.predicted among non-blacks MDRD (S/P/Bld) [Vol rate/Area] 85 mL/min/{1.73_m2} Normal >59 [facility] Comment on above: Result Comment: Reported eGFR is based on the CKD-EPI 2020 equation that does not use a race coefficient. Performed By: #### C BCA, PINR, 90075-2, BMP, 3040-3, 33172-5, 5643-2, LIVR, 20558-7, 63085-8, THYR, 69729-1, 79789-8 #### [facility] ([id number]) [address] [place] [address] 67773 Glucose [Mass/Vol] 114 mg/dL High 65-99 [facility] Comment on above: Performed By: #### C BCA, PINR, 35604-2, BMP, 3040-3, 79136-9, 5643-2, LIVR, 82447-5, 75976-2, THYR, 41333-3, 22375-9 #### [facility] ([id number]) [address] [place] [address] 74490 Potassium [Moles/Vol] 3.5 mmol/L Normal 3.5-5.0 [facility] Comment on above: Performed By: #### C BCA, PINR, 54029-1, BMP, 3040-3, 66754-1, 5643-2, LIVR, 51115-9, 83929-0, THYR, 99193-4, 28803-7 #### [facility] ([id number]) [address] [place] [address] 54519 Sodium [Moles/Vol] 137 mmol/L Normal 134-146 [facility] Comment on above: Performed By: #### C BCA, PINR, 81869-0, BMP, 3040-3, 55970-3, 5643-2, LIVR, 75529-5, 11987-8, THYR, 16138-8, 94883-8 #### [facility] ([id number]) [address] [place] [address] [place] [address] Urea nitrogen [Mass/Vol] 17 mg/dL Normal 5-27 [facility] Comment on above: Performed By: #### C BCA, PINR, 22136-4, BMP, 3040-3, 14038-5, 5643-2, LIVR, 50519-5, 23233-8, THYR, 14554-2, 89546-3 #### [facility] ([id number]) [address] [place] [address] 51624 CBC AND AUTO DIFFon 11-04-19 24 ABSOLUTE BASOPHIL 0.1 X10E9/L Normal 0.0-0.2 [facility] Comment on above: Performed By: #### C BCA, PINR, 66714-2, BMP, 3040-3, 81020-1, 5643-2, LIVR, 90561-4, 94101-2, THYR, 27734-8, 75414-6 #### [facility] ([id number]) [address] [place] [address] [place] [address] ABSOLUTE NEUTROPHIL 5.5 X10E9/L Normal 1.5-6.6 [facility] Comment on above: Performed By: #### C BCA, PINR, 61754-0, BMP, 3040-3, 26272-9, 5643-2, LIVR, 11380-4, 14339-5, THYR, 40956-6, 79972-5 #### [facility] ([id number]) [address] [place] [address] 95497 Basophils/100 WBC (Bld) 1.0 % Normal [facility] Comment on above: Performed By: #### C BCA, PINR, 12144-2, BMP, 3040-3, 25896-2, 5643-2, LIVR, 66232-6, 32142-8, THYR, 63744-5, 45503-2 #### [facility] ([id number]) [address] [place] [address] [place] [address] Eosinophils (Bld) [#/Vol] 0.4 10*3/uL Normal 0.0-0.4 [facility] Comment on above: Performed By: #### C BCA, PINR, 55362-9, BMP, 3040-3, 62269-6, 5643-2, LIVR, 19365-4, 53874-2, THYR, 53294-7, 58580-4 #### [facility] ([id number]) [address] [place] [address] [place] [address] Eosinophils/100 WBC (Bld) 4.2 % Normal [facility] Comment on above: Performed By: #### C BCA, PINR, 07076-4, BMP, 3040-3, 42365-7, 5643-2, LIVR, 88140-7, 06759-3, THYR, 13975-7, 76440-9 #### [facility] ([id number]) [address] [place] [address] 92481 Erythrocyte distribution width (RBC) [Ratio] 17.9 % High 11.5-15.0 [facility] Comment on above: Performed By: #### C BCA, PINR, 47897-9, BMP, 3040-3, 82198-7, 5643-2, LIVR, 30076-9, 52397-3, THYR, 10770-8, 93949-0 #### [facility] ([id number]) [address] [place] [address] 86824 Hematocrit (Bld) [Volume fraction] 36.0 % Low 39-49 [facility] Comment on above: Performed By: #### C BCA, PINR, 65736-1, BMP, 3040-3, 21753-6, 5643-2, LIVR, 85187-6, 93804-9, THYR, 10264-4, 86360-9 #### [facility] ([id number]) [address] [place] [address] [place] [address] Hemoglobin (Bld) [Mass/Vol] 12.4 g/dL Low 13.0-17.0 [facility] Comment on above: Performed By: #### C BCA, PINR, 52073-8, BMP, 3040-3, 33859-9, 5643-2, LIVR, 05797-3, 61226-9, THYR, 27976-9, 66709-3 #### [facility] ([id number]) [address] [place] [address] 50733 Lymphocytes (Bld) [#/Vol] 1.9 10*3/uL Normal 1.0-3.5 [facility] Comment on above: Performed By: #### C BCA, PINR, 36465-1, BMP, 3040-3, 82977-3, 5643-2, LIVR, 22361-9, 66051-1, THYR, 99181-7, 84008-1 #### [facility] ([id number]) [address] [place] [address] 18562 Lymphocytes/100 WBC (Bld) 22.2 % Normal [facility] Comment on above: Performed By: #### C BCA, PINR, 61446-1, BMP, 3040-3, 96545-9, 5643-2, LIVR, 62345-0, 36143-9, THYR, 84137-1, 37812-7 #### [facility] ([id number]) [address] [place] [address] 89485 MCH (RBC) [Entitic mass] 27.5 pg Normal 27-34 [facility] Comment on above: Performed By: #### C BCA, PINR, 50937-9, BMP, 3040-3, 71801-4, 5643-2, LIVR, 35158-4, 34507-3, THYR, 41857-6, 83752-0 #### [facility] ([id number]) [address] [place] [address] [place] [address] MCHC (RBC) [Mass/Vol] 34.6 g/dL Normal 32-36 [facility] Comment on above: Performed By: #### C BCA, PINR, 06443-5, BMP, 3040-3, 68860-3, 5643-2, LIVR, 08648-8, 47422-4, THYR, 91256-6, 79713-4 #### [facility] ([id number]) [address] [place] [address] 90855 MCV (RBC) [Entitic vol] 80 fL Normal 80-100 [facility] Comment on above: Performed By: #### C BCA, PINR, 69460-6, BMP, 3040-3, 06272-8, 5643-2, LIVR, 80424-5, 03259-3, THYR, 21778-8, 71222-4 #### [facility] ([id number]) [address] [place] [address] 54183 Monocytes (Bld) [#/Vol] 0.6 10*3/uL Normal 0-0.9 [facility] Comment on above: Performed By: #### C BCA, PINR, 20174-8, BMP, 3040-3, 37546-2, 5643-2, LIVR, 79113-6, 63063-4, THYR, 82867-6, 52775-9 #### [facility] ([id number]) [address] [place] [address] 19311 Monocytes/100 WBC (Bld) 7.7 % Normal [facility] Comment on above: Performed By: #### C BCA, PINR, 24902-9, BMP, 3040-3, 98628-8, 5643-2, LIVR, 14102-5, 55721-7, THYR, 68454-6, 79662-0 #### [facility] ([id number]) [address] [place] [address] [place] [address] Neutrophils/100 WBC (Bld) 64.9 % Normal [facility] Comment on above: Performed By: #### C BCA, PINR, 53140-5, BMP, 3040-3, 49752-8, 5643-2, LIVR, 98605-6, 72641-3, THYR, 07637-1, 55500-4 #### [facility] ([id number]) [address] [place] [address] [place] [address] Platelet mean volume (Bld) [Entitic vol] 7.6 fL Normal 7-12 [facility] Comment on above: Performed By: #### C BCA, PINR, 32417-9, BMP, 3040-3, 09270-9, 5643-2, LIVR, 28203-3, 90858-0, THYR, 77423-2, 75022-5 #### [facility] ([id number]) [address] [place] [address] 21415 Platelets (Bld) [#/Vol] 324 10*3/uL Normal 150-450 [facility] Comment on above: Performed By: #### C BCA, PINR, 46334-6, BMP, 3040-3, 29962-2, 5643-2, LIVR, 09982-8, 44926-4, THYR, 21038-3, 32085-9 #### [facility] ([id number]) [address] [place] [address] 49156 RBC COUNT 4.53 X10E12/L Normal 4.10-5.70 [facility] Comment on above: Performed By: #### C BCA, PINR, 27683-9, BMP, 3040-3, 23383-9, 5643-2, LIVR, 61517-3, 41021-1, THYR, 70246-1, 96006-5 #### [facility] ([id number]) [address] [place] [address] 07994 WBC (Bld) [#/Vol] 8.4 10*3/uL Normal 4.0-11.0 [facility] Comment on above: Performed By: #### C BCA, PINR, 19080-4, BMP, 3040-3, 12213-4, 5643-2, LIVR, 80256-9, 96847-3, THYR, 73591-1, 00764-3 #### [facility] ([id number]) [address] [place] [address] ABDOMEN AND PELVIS WO CON Ton 11-04-2023 CT ABDOMEN AND PELVIS WO CONT CT ABDOMEN AND PELVIS WO CONT CLINICAL INFORMATION: Abdominal pain, acute, nonlocalized; lower abd pain dysuria, constipation. TECHNIQUE: CT Abdomen and Pelvis without intravenous contrast. All CT scans at this facility use dose modulation, iterative reconstruction, and/or weight based dosing when appropriate to reduce radiation dose to as low as reasonably achievable. COMPARISON: No relevant prior studies available. FINDINGS: Assessment in the absence of intravenous contrast is suboptimal, especially with respect to vasculature, metastatic disease, and infectious precesses [if clinically relevant]. Despite this constraint, best attempt is made: No acute findings lower thorax. Severe calcified coronary arterial disease. Unremarkable liver, gallbladder, spleen, pancreas, adrenal glands. Cholelithiasis without acute cholecystitis. Mild fat stranding within the upper abdominal mesentery, relative sparing of adipose tissue immediately adjacent to the vasculature and lymph nodes. No gross adenopathy. No dilatation or wall thickening the bowel. Subtotal colectomy with left upper quadrant: Colonic anastomosis. Ramos catheter retention balloon insufflated within the prostate. Bladder wall thickening, perivesicular fat stranding. Diffuse idiopathic skeletal hyperostosis. Multilevel fracture deformities, notably at L3 and T12, status post cement augmentation. IMPRESSION: * Ramos catheter retention balloon inflated within the bladder, recommend repositioning [unless deliberately placed as such]. * Bladder perivesicular fat stranding and wall thickening, filling for clinical signs of cystitis. * Features suggestive of mesenteric panniculitis. THIS REPORT CONTAINS A SIGNIFICANT RESULT AND/OR RECOMMENDATION, WHICH REQUIRES THE ATTENTION OF THE LICENSED CAREGIVER RESPONSIBLE FOR THIS PATIENT. THEREFORE, I SPECIFICALLY DESIGNATED THIS REPORT TO BE TELEPHONED BY THE RADIOLOGY DEPARTMENT. FINDINGS WERE INSTRUCTED TO BE CALLED TO THE CLINICAL SERVICE ON 11/04/2023 3:03 PM * Finalized by Omari Chris MD on 11/04/2023 3:05 PM Normal [facility] URINE CULTUREon 11-04-2023 Bacteria identified Cx Nom (U) CULTURE RESULTS MULTIPLE SPECIES PRESENT. PROBABLE COLLECTION CONTAMINATION. SUGGEST REPEAT SPECIMEN. Normal [facility] Comment on above: Performed By: #### C BCA, PINR, 86540-7, BMP, 3040-3, 82778-2, 5643-2, LIVR, 48872-4, 38604-8, THYR, 56418-2, 30173-5 #### [facility] ([id number]) [address] [place] [address], [place] [address] URN MACROSCOPIC NURon 2023 BILIRUBIN TORRES Negative Normal NEG [facility] Comment on above: Performed By: #### C BCA, PINR, 27481-6, BMP, 3040-3, 73424-0, 5643-2, LIVR, 51320-2, 80306-6, THYR, 71405-8, 75495-7 #### [facility] ([id number]) [address] [place] [address] [place] [address] BLOOD/HGB TORRES Large Abnormal NEG [facility] Comment on above: Performed By: #### C BCA, PINR, 26911-2, BMP, 3040-3, 40729-7, 5643-2, LIVR, 99374-3, 16783-0, THYR, 97472-6, 17031-3 #### [facility] ([id number]) [address] [place] [address] [place] [address] GLUCOSE TORRES Negative Normal NEG [facility] Comment on above: Performed By: #### C BCA, PINR, 08867-4, BMP, 3040-3, 68048-0, 5643-2, LIVR, 50482-8, 15258-9, THYR, 96523-2, 43064-7 #### [facility] ([id number]) [address] [place] [address] [place] [address] KETONES TORRES Negative Normal NEG [facility] Comment on above: Performed By: #### C BCA, PINR, 70686-7, BMP, 3040-3, 55839-4, 5643-2, LIVR, 84982-6, 82608-6, THYR, 87302-5, 61729-7 #### [facility] ([id number]) [address] [place] [address] [place] [address] LEUKOCYTE ESTERASE TORRES Small Abnormal NEG [facility] Comment on above: Performed By: #### C BCA, PINR, 45411-4, BMP, 3040-3, 29259-7, 5643-2, LIVR, 24444-8, 05829-7, THYR, 78891-0, 95828-0 #### [facility] ([id number]) [address] [place] [address] 20542 NITRITE TORRES Negative Normal NEG [facility] Comment on above: Performed By: #### C BCA, PINR, 94161-3, BMP, 3040-3, 26220-1, 5643-2, LIVR, 57716-4, 27073-3, THYR, 27915-6, 50096-9 #### [facility] ([id number]) [address] [place] [address] 00934 PH TORRES 8.0 Normal 5.0-8.5 [facility] Comment on above: Performed By: #### C BCA, PINR, 89915-8, BMP, 3040-3, 77381-6, 5643-2, LIVR, 09592-9, 89848-0, THYR, 38188-2, 51700-9 #### [facility] ([id number]) [address] [place] [address] 39889 PROTEIN TORRES 100 mg/dL Abnormal NEG [facility] Comment on above: Performed By: #### C BCA, PINR, 26001-2, BMP, 3040-3, 63517-1, 5643-2, LIVR, 76034-1, 80110-0, THYR, 39257-2, 01407-6 #### [facility] ([id number]) [address] [place] [address] 88578 SPECIFIC GRAVITY TORRES 1.015 Normal 1.003-1.035 [facility] Comment on above: Performed By: #### C BCA, PINR, 51745-5, BMP, 3040-3, 98051-0, 5643-2, LIVR, 17991-3, 82579-0, THYR, 70616-6, 57765-1 #### [facility] ([id number]) [address] [place] [address], [place] [address] UROBILINOGEN TORRES 0.2 eu/dL Normal <1.1 [facility] Comment on above: Performed By: #### C BCA, PINR, 73833-5, BMP, 3040-3, 03548-7, 5643-2, LIVR, 71476-2, 85102-3, THYR, 96009-3, 16684-8 #### [facility] ([id number]) [address] [place] [address] [place] [address] CBC AND AUTO DIFFon 10-29-19 24 ABSOLUTE BASOPHIL 0.0 X10E9/L Normal 0.0-0.2 [facility] Comment on above: Performed By: #### C BCA, PINR, 77367-8, BMP, 3040-3, 11009-5, 5643-2, LIVR, 35669-6, 39830-9, THYR, 20182-6, 97156-2 #### [facility] ([id number]) [address] [place] [address], [place] [address] ABSOLUTE NEUTROPHIL 7.4 X10E9/L High 1.5-6.6 [facility] Comment on above: Performed By: #### C BCA, PINR, 87864-8, BMP, 3040-3, 77244-5, 5643-2, LIVR, 13890-1, 40690-6, THYR, 64224-5, 42356-5 #### [facility] ([id number]) [address] [place] [address], [place] [address] Basophils/100 WBC (Bld) 0.3 % Normal [facility] Comment on above: Performed By: #### C BCA, PINR, 82005-2, BMP, 3040-3, 33258-2, 5643-2, LIVR, 88178-2, 92617-1, THYR, 27929-9, 02425-9 #### [facility] ([id number]) [address] [place] [address] 58844 Eosinophils (Bld) [#/Vol] 0.3 10*3/uL Normal 0.0-0.4 [facility] Comment on above: Performed By: #### C BCA, PINR, 09879-0, BMP, 3040-3, 08381-2, 5643-2, LIVR, 54609-3, 95066-1, THYR, 19435-6, 68539-5 #### [facility] ([id number]) [address] [place] [address] 35898 Eosinophils/100 WBC (Bld) 3.1 % Normal [facility] Comment on above: Performed By: #### C BCA, PINR, 00741-1, BMP, 3040-3, 57164-5, 5643-2, LIVR, 84878-3, 91091-8, THYR, 60202-0, 06929-7 #### [facility] ([id number]) [address] [place] [address] 37329 Erythrocyte distribution width (RBC) [Ratio] 18.1 % High 11.5-15.0 [facility] Comment on above: Performed By: #### C BCA, PINR, 50233-8, BMP, 3040-3, 05430-5, 5643-2, LIVR, 37979-0, 85515-2, THYR, 81997-2, 57056-4 #### [facility] ([id number]) [address] [place] [address] 88648 Hematocrit (Bld) [Volume fraction] 35.0 % Low 39-49 [facility] Comment on above: Performed By: #### C BCA, PINR, 55583-2, BMP, 3040-3, 81160-9, 5643-2, LIVR, 34557-4, 11053-7, THYR, 11586-9, 00348-7 #### [facility] ([id number]) [address] [place] [address] 72581 Hemoglobin (Bld) [Mass/Vol] 11.9 g/dL Low 13.0-17.0 [facility] Comment on above: Performed By: #### C BCA, PINR, 17904-9, BMP, 3040-3, 39103-8, 5643-2, LIVR, 80991-0, 56893-8, THYR, 19018-5, 52532-1 #### [facility] ([id number]) [address] [place] [address] 32888 Lymphocytes (Bld) [#/Vol] 1.3 10*3/uL Normal 1.0-3.5 [facility] Comment on above: Performed By: #### C BCA, PINR, 02376-0, BMP, 3040-3, 08235-0, 5643-2, LIVR, 53961-3, 14052-6, THYR, 57859-3, 01174-3 #### [facility] ([id number]) [address] [place] [address] 30777 Lymphocytes/100 WBC (Bld) 13.1 % Normal [facility] Comment on above: Performed By: #### C BCA, PINR, 79583-1, BMP, 3040-3, 48123-4, 5643-2, LIVR, 64711-9, 35599-5, THYR, 17528-0, 09124-3 #### [facility] ([id number]) [address] [place] [address] 73334 MCH (RBC) [Entitic mass] 27.2 pg Normal 27-34 [facility] Comment on above: Performed By: #### C BCA, PINR, 07279-9, BMP, 3040-3, 36332-3, 5643-2, LIVR, 90534-8, 79657-1, THYR, 01959-2, 86603-7 #### [facility] ([id number]) [address] [place] [address] 62580 MCHC (RBC) [Mass/Vol] 34.0 g/dL Normal 32-36 [facility] Comment on above: Performed By: #### C BCA, PINR, 26251-3, BMP, 3040-3, 85084-7, 5643-2, LIVR, 63733-0, 41832-2, THYR, 54772-1, 20332-4 #### [facility] ([id number]) [address] [place] [address] 74623 MCV (RBC) [Entitic vol] 80 fL Normal 80-100 [facility] Comment on above: Performed By: #### C BCA, PINR, 31800-3, BMP, 3040-3, 10360-3, 5643-2, LIVR, 53142-8, 28450-8, THYR, 23440-0, 16789-1 #### [facility] ([id number]) [address] [place] [address] 58599 Monocytes (Bld) [#/Vol] 0.6 10*3/uL Normal 0-0.9 [facility] Comment on above: Performed By: #### C BCA, PINR, 64207-9, BMP, 3040-3, 30447-7, 5643-2, LIVR, 02083-1, 67133-2, THYR, 29184-6, 44651-7 #### [facility] ([id number]) [address] [place] [address] 77282 Monocytes/100 WBC (Bld) 6.3 % Normal [facility] Comment on above: Performed By: #### C BCA, PINR, 37211-7, BMP, 3040-3, 22093-9, 5643-2, LIVR, 52994-3, 88026-4, THYR, 02351-6, 22273-3 #### [facility] ([id number]) [address] [place] [address] Neutrophils/100 WBC (Bld) 77.2 % Normal [facility] Comment on above: Performed By: #### C BCA, PINR, 01810-5, BMP, 3040-3, 57448-4, 5643-2, LIVR, 68109-9, 32185-2, THYR, 22599-7, 52142-4 #### [facility] ([id number]) [address] [place] [address] 14877 Platelet mean volume (Bld) [Entitic vol] 7.4 fL Normal 7-12 [facility] Comment on above: Performed By: #### C BCA, PINR, 20537-0, BMP, 3040-3, 56872-2, 5643-2, LIVR, 27577-5, 77440-1, THYR, 61764-6, 13256-1 #### [facility] ([id number]) [address] [place] [address] 22317 Platelets (Bld) [#/Vol] 319 10*3/uL Normal 150-450 [facility] Comment on above: Performed By: #### C BCA, PINR, 14462-4, BMP, 3040-3, 55898-6, 5643-2, LIVR, 06269-8, 41529-9, THYR, 03501-1, 91244-7 #### [facility] ([id number]) [address] [place] [address] 35273 RBC COUNT 4.38 X10E12/L Normal 4.10-5.70 [facility] Comment on above: Performed By: #### C BCA, PINR, 81202-8, BMP, 3040-3, 24478-6, 5643-2, LIVR, 39110-1, 53596-7, THYR, 24594-2, 17462-2 #### [facility] ([id number]) [address] [place] [address] 08394 WBC (Bld) [#/Vol] 9.6 10*3/uL Normal 4.0-11.0 [facility] Comment on above: Performed By: #### C BCA, PINR, 32122-6, BMP, 3040-3, 85558-6, 5643-2, LIVR, 59010-7, 32015-9, THYR, 82309-8, 61228-4 #### [facility] ([id number]) [address] [place] [address] 30349 COMPREHENSIVE METABOLIC PANE [facility] 10-29-2023 Albumin [Mass/Vol] 3.8 g/dL Normal 3.2-5.3 [facility] Comment on above: Performed By: #### C BCA, PINR, 45895-9, BMP, 3040-3, 69716-6, 5643-2, LIVR, 82972-8, 10034-0, THYR, 58087-5, 92409-6 #### [facility] ([id number]) [address] [place] [address] 67815 ALP [Catalytic activity/Vol] 57 U/L Normal 39-130 [facility] Comment on above: Performed By: #### C BCA, PINR, 70638-8, BMP, 3040-3, 25463-4, 5643-2, LIVR, 48837-3, 28346-4, THYR, 90686-6, 59261-0 #### [facility] ([id number]) [address] [place] [address] 05889 ALT [Catalytic activity/Vol] 30 U/L Normal 0-40 [facility] Comment on above: Performed By: #### C BCA, PINR, 20598-0, BMP, 3040-3, 05965-8, 5643-2, LIVR, 06689-2, 47492-2, THYR, 80506-4, 35376-8 #### [facility] ([id number]) [address] [place] [address], [place] [address] Anion gap [Moles/Vol] 13 mmol/L Normal 5-15 [facility] Comment on above: Performed By: #### C BCA, PINR, 66423-7, BMP, 3040-3, 86855-6, 5643-2, LIVR, 54707-6, 57410-9, THYR, 95204-3, 61808-1 #### [facility] ([id number]) [address] [place] [address] 61817 AST [Catalytic activity/Vol] 22 U/L Normal 0-41 [facility] Comment on above: Performed By: #### C BCA, PINR, 23951-4, BMP, 3040-3, 81635-7, 5643-2, LIVR, 05684-6, 72208-0, THYR, 06318-9, 07227-1 #### [facility] ([id number]) [address] [place] [address] 91228 Bilirubin [Mass/Vol] 0.8 mg/dL Normal 0.3-1.2 [facility] Comment on above: Performed By: #### C BCA, PINR, 02663-4, BMP, 3040-3, 75522-3, 5643-2, LIVR, 14659-6, 63184-4, THYR, 60998-2, 52246-0 #### [facility] ([id number]) [address] [place] [address] 66831 Calcium [Mass/Vol] 9.5 mg/dL Normal 8.5-10.5 [facility] Comment on above: Performed By: #### C BCA, PINR, 75354-5, BMP, 3040-3, 69752-7, 5643-2, LIVR, 76055-2, 47710-7, THYR, 50610-5, 96685-9 #### [facility] ([id number]) [address] [place] [address] Chloride [Moles/Vol] 102 mmol/L Normal 98-109 [facility] Comment on above: Performed By: #### C BCA, PINR, 60500-2, BMP, 3040-3, 86532-8, 5643-2, LIVR, 03583-1, 03451-6, THYR, 52264-9, 82019-7 #### [facility] ([id number]) [address] [place] [address] 29145 CO2 [Moles/Vol] 21 mmol/L Low 22-32 [facility] Comment on above: Performed By: #### C BCA, PINR, 55007-4, BMP, 3040-3, 75566-0, 5643-2, LIVR, 75532-2, 09155-8, THYR, 22895-9, 32436-3 #### [facility] ([id number]) [address] [place] [address] 88934 Creatinine [Mass/Vol] 1.14 mg/dL Normal 0.70-1.20 [facility] Comment on above: Result Comment: METH OD TRACEABLE TO IDMS STANDARD Performed By: #### C BCA, PINR, 68570-5, BMP, 3040-3, 23010-9, 5643-2, LIVR, 17681-2, 23971-6, THYR, 22591-9, 83456-2 #### [facility] ([id number]) [address] [place] [address] [place] [address] GFR/1.73 sq M.predicted among non-blacks MDRD (S/P/Bld) [Vol rate/Area] 67 mL/min/{1.73_m2} Normal >59 [facility] Comment on above: Result Comment: Reported eGFR is based on the CKD-EPI 2020 equation that does not use a race coefficient. Performed By: #### C BCA, PINR, 57302-4, BMP, 3040-3, 71266-2, 5643-2, LIVR, 53483-5, 06261-7, THYR, 54933-8, 64184-6 #### [facility] [facility] ([id number]) [address] [place] [address] 70457 Glucose [Mass/Vol] 172 mg/dL High 65-99 [facility] Comment on above: Performed By: #### C BCA, PINR, 06713-4, BMP, 3040-3, 39835-5, 5643-2, LIVR, 06008-1, 73267-8, THYR, 04283-5, 03189-0 #### [facility] ([id number]) [address] [place] [address] 76122 Potassium [Moles/Vol] 3.7 mmol/L Normal 3.5-5.0 [facility] Comment on above: Performed By: #### C BCA, PINR, 87836-3, BMP, 3040-3, 22765-3, 5643-2, LIVR, 73372-5, 59005-6, THYR, 12261-7, 03040-2 #### [facility] ([id number]) [address] [place] [address] 33058 Protein [Mass/Vol] 7.9 g/dL Normal 6.0-8.0 [facility] Comment on above: Performed By: #### C BCA, PINR, 26987-4, BMP, 3040-3, 49512-7, 5643-2, LIVR, 06139-4, 21895-3, THYR, 15836-6, 04568-1 #### [facility] ([id number]) [address] [place] [address] [place] [address] Sodium [Moles/Vol] 136 mmol/L Normal 134-146 [facility] Comment on above: Performed By: #### C BCA, PINR, 07546-5, BMP, 3040-3, 50268-8, 5643-2, LIVR, 25100-4, 63142-2, THYR, 85442-3, 59329-0 #### [facility] ([id number]) [address] [facility], [place] [address] Urea nitrogen [Mass/Vol] 22 mg/dL Normal 5-27 [facility] Comment on above: Performed By: #### C BCA, PINR, 12646-6, BMP, 3040-3, 37840-7, 5643-2, LIVR, 02702-8, 45708-4, THYR, 78825-2, 61345-3 #### [facility] ([id number]) [address] [facility], [place] [address] CT ABDOMEN AND PELVIS W CONT on 10-29-2023 CT ABDOMEN AND PELVIS W CONT CT ABDOMEN AND PELVIS W CONT CLINICAL INFORMATION: Pain. Bowel obstruction suspected. COMPARISON: None TECHNIQUE: CT of the abdomen and pelvis with intravenous contrast. FINDINGS: LOWER CHEST: Lung bases are clear. Mild cardiomegaly. LIVER AND BILIARY: No suspicious focal liver lesion. Gallbladder present without cholelithiasis. No overt biliary dilatation. PANCREAS: No acute abnormality. SPLEEN: Within normal limits. ADRENALS: Within normal limits. KIDNEYS, URETERS, AND BLADDER: Nonobstructing nephrolithiasis. Symmetric enhancement without suspicious lesion or hydronephrosis. Indwelling Ramos catheter was bladder gas. GI TRACT AND PERITONEUM: Large rectal stool burden, distended to 7.5-8 cm. Significant large bowel fecal loading elsewhere. Normal appendix. Nondilated small bowel. Significant gastric distention however. Mild mesenteric induration/haziness, nonspecific, correlate with any panniculitis/mesenter itis. No free fluid. No free air. VASCULATURE: Normal caliber aorta with moderate atherosclerosis. Patent portal vein. LYMPH NODES: Borderline inguinal lymph nodes, favoring reactive, technically nonspecific. REPRODUCTIVE ORGANS: No acute abnormality. MUSCULOSKELETAL: Prior multilevel kyphoplasty. Osteopenia. IMPRESSION: 1. Significant large bowel fecal loading. Distended rectum. Correlate with constipation/impactio n. 2. Distended stomach, nonspecific. No significant small bowel dilatation to suggest SBO however. 3. Thickened urinary bladder with indwelling Ramos catheter. Nonobstructing nephrolithiasis. 4. Borderline inguinal lymph nodes, favoring reactive, technically nonspecific. All CT scans at this facility use dose modulation, iterative reconstruction, and/or weight based dosing when appropriate to reduce radiation dose to as low as reasonably achievable. Finalized by Ellis Ochoa MD on 10/29/2023 1:22 AM Normal [facility] LIPASEon 10-29-2023 Lipase [Catalytic activity/Vol] 55 U/L High 17-40 [facility] Comment on above: Performed By: #### C BCA, PINR, 56965-1, BMP, 3040-3, 63195-3, 5643-2, LIVR, 78546-8, 57328-7, THYR, 03835-9, 59017-7 #### [facility] ([id number]) [address] [place] [address] 64331 Lactate (P zane) [Moles/Vol]o n 10-29-2023 Lactate [Moles/Vol] 3.1 mmol/L High 0.4-2.0 [facility] Comment on above: Performed By: #### C BCA, PINR, 42691-2, BMP, 3040-3, 29735-0, 5643-2, LIVR, 95786-5, 83805-9, THYR, 22346-5, 38433-5 #### [facility] ([id number]) [address] [place] [address] 48141 LACTATE W/REFLEX 3.5 mmol/L High 0.4-2.0 [facility] Comment on above: Performed By: #### C BCA, PINR, 57915-1, BMP, 3040-3, 15839-4, 5643-2, LIVR, 90813-7, 60224-7, THYR, 73450-5, 61734-2 #### [facility] ([id number]) [address] [place] [address] 33766 XR ABDOMEN AP 1 VWon 024 XR ABDOMEN AP 1 VW XR ABDOMEN AP 1 VW XR ABDOMEN AP 1 VW INDICATION: Distention. Obstructive findings verses constipation COMPARISON: None FINDINGS: Nonobstructive bowel gas pattern. Large rectosigmoid stool burden. Distended rectum measures 7.5 cm in caliber. Prior multilevel kyphoplasty. Limited evaluation for pneumoperitoneum given technique, exclusion of the upper abdomen. Degenerative changes of the hips, spine. Vascular calcification. IMPRESSION: 1. Significant rectosigmoid stool burden. Correlate with any clinical constipation. 2. Relative paucity of small bowel gas otherwise, nonspecific. 3. Additional findings/limitations as above. Finalized by Ellis Ochoa MD on 10/28/2023 11:53 PM Normal [facility] US ankle/arm indiceson 10-12 US ankle/arm indices [facility] [address] [place] [address] Ultrasound Report Signed Patient: Gagandeep Ahn MR#: [id number] 32 : 1950 Acct:[id number] Age/Sex: 72 / M ADM Date: 10/07/23 Loc: [facility] Room: Type: [facility] Attending Dr: Steven Horta MD Ordering Provider: Steven Horta MD Date of Service: 10/07/23 US/US ankle/arm indices: I73.9 - Peripheral vascular disease, unspecified Copies to: Steven Horta MD LOWER EXTREMITY SEGMENTAL ARTERIAL DOPSCAN (PVR) INDICATION: Surveillance study for PAD. PROCEDURE: Right arm blood pressure is 115 , left is 114 . Pressures at the right ankle are 171 using the posterior tibial artery, and 160 using the dorsalis pedis artery with ankle-brachial ind ex of 1.49 1.39 . Wave forms by plethysmography are normal. US/US ankle/arm indices IMPRESSION: NO HEMODYNAMICALLY SIGNIFICANT PERIPHERAL VASCULAR OCCLUSIVE DISEASE AT REST IN THE RIGHT LOWER EXTREMITY. Impression dictated by: Steven Horta MD10/13/2023 8:55 AM Dictation Location: [facility]-04 Tech: Maribel Ruano Transcribed By: MARTHA 10/13/2355 Dictated By: Steven Horta MD 10/13/23 0854 Signed By: 10/13/23 08 Normal [facility] COMPREHENSIVE METABOLIC PANE Nilson 10-09-2023 Albumin [Mass/Vol] 3.2 g/dL Normal 3.2-5.3 [facility] Comment on above: Performed By: #### C BCA, PINR, 55497-9, BMP, 3040-3, 29045-5, 5643-2, LIVR, 94188-7, 58644-0, THYR, 64610-8, 63296-5 #### [facility] ([id number]) [address] [place] [address] [place] [address] ALP [Catalytic activity/Vol] 57 U/L Normal 39-130 [facility] Comment on above: Performed By: #### C BCA, PINR, 66397-8, BMP, 3040-3, 05013-9, 5643-2, LIVR, 62915-5, 74761-9, THYR, 82099-8, 18817-8 #### [facility] ([id number]) [address] [place] [address] [place] [address] ALT [Catalytic activity/Vol] 13 U/L Normal 0-40 [facility] Comment on above: Performed By: #### C BCA, PINR, 30688-2, BMP, 3040-3, 68220-3, 5643-2, LIVR, 12267-1, 61279-4, THYR, 01624-1, 40725-8 #### [facility] ([id number]) [address] [place] [address] [place] [address] Anion gap [Moles/Vol] 11 mmol/L Normal 5-15 [facility] Comment on above: Performed By: #### C BCA, PINR, 94573-8, BMP, 3040-3, 62308-0, 5643-2, LIVR, 24704-4, 39467-5, THYR, 61649-7, 85897-4 #### [facility] ([id number]) [address] [place] [address] [place] [address] AST [Catalytic activity/Vol] 16 U/L Normal 0-41 [facility] Comment on above: Performed By: #### C BCA, PINR, 70239-9, BMP, 3040-3, 14181-1, 5643-2, LIVR, 06656-8, 89229-2, THYR, 93085-9, 21552-1 #### [facility] ([id number]) [address] [place] [address] [place] [address] Bilirubin [Mass/Vol] 0.9 mg/dL Normal 0.3-1.2 [facility] Comment on above: Performed By: #### C BCA, PINR, 04188-3, BMP, 3040-3, 40903-5, 5643-2, LIVR, 89290-2, 40278-4, THYR, 18146-8, 93736-7 #### [facility] ([id number]) [address] [place] [address] [place] [address] Calcium [Mass/Vol] 8.3 mg/dL Low 8.5-10.5 [facility] Comment on above: Performed By: #### C BCA, PINR, 91854-2, BMP, 3040-3, 62451-1, 5643-2, LIVR, 09816-6, 40191-1, THYR, 35415-8, 08977-5 #### [facility] ([id number]) [address] [place] [address] [place] [address] Chloride [Moles/Vol] 103 mmol/L Normal 98-109 [facility] Comment on above: Performed By: #### C BCA, PINR, 36780-0, BMP, 3040-3, 46824-3, 5643-2, LIVR, 09946-5, 25428-7, THYR, 80838-9, 46520-5 #### [facility] ([id number]) [address] [place] [address] 74733 CO2 [Moles/Vol] 21 mmol/L Low 22-32 [facility] Comment on above: Performed By: #### C BCA, PINR, 77205-1, BMP, 3040-3, 15677-0, 5643-2, LIVR, 26223-3, 41707-3, THYR, 73278-1, 68916-7 #### [facility] ([id number]) [address] [place] [address] 48326 Creatinine [Mass/Vol] 0.92 mg/dL Normal 0.70-1.20 [facility] Comment on above: Result Comment: METH OD TRACEABLE TO IDMS STANDARD Performed By: #### C BCA, PINR, 28439-3, BMP, 3040-3, 37783-2, 5643-2, LIVR, 71874-7, 41499-7, THYR, 06302-2, 13021-1 #### [facility] ([id number]) [address] [place] [address] 75252 GFR/1.73 sq M.predicted among non-blacks MDRD (S/P/Bld) [Vol rate/Area] 87 mL/min/{1.73_m2} Normal >59 [facility] Comment on above: Result Comment: Reported eGFR is based on the CKD-EPI 2020 equation that does not use a race coefficient. Performed By: #### C BCA, PINR, 64483-3, BMP, 3040-3, 13911-7, 5643-2, LIVR, 31146-8, 06713-6, THYR, 98979-6, 49629-5 #### [facility] ([id number]) [address] [place] [address] 85720 Glucose [Mass/Vol] 138 mg/dL High 65-99 [facility] Comment on above: Performed By: #### C BCA, PINR, 31353-0, BMP, 3040-3, 01458-5, 5643-2, LIVR, 33756-4, 66502-2, THYR, 89394-1, 19515-6 #### [facility] ([id number]) [address] [place] [address] 38684 Potassium [Moles/Vol] 3.1 mmol/L Low 3.5-5.0 [facility] Comment on above: Performed By: #### C BCA, PINR, 65145-2, BMP, 3040-3, 50208-8, 5643-2, LIVR, 41446-5, 33064-8, THYR, 25728-6, 50100-9 #### [facility] ([id number]) [address] [place] [address] 22796 Protein [Mass/Vol] 6.7 g/dL Normal 6.0-8.0 [facility] Comment on above: Performed By: #### C BCA, PINR, 78242-1, BMP, 3040-3, 38388-4, 5643-2, LIVR, 58739-7, 21539-5, THYR, 14100-4, 79156-0 #### [facility] ([id number]) [address] [place] [address] 63977 Sodium [Moles/Vol] 135 mmol/L Normal 134-146 [facility] Comment on above: Performed By: #### C BCA, PINR, 72918-8, BMP, 3040-3, 67888-0, 5643-2, LIVR, 95497-6, 39624-9, THYR, 63191-3, 21955-6 #### [facility] ([id number]) [address] [place] [address] [place] [address] Urea nitrogen [Mass/Vol] 28 mg/dL High 5-27 [facility] Comment on above: Performed By: #### C BCA, PINR, 20727-6, BMP, 3040-3, 97950-4, 5643-2, LIVR, 09665-9, 22296-7, THYR, 66119-8, 06654-5 #### [facility] ([id number]) [address] [place] [address] 41262 MAGNESIUMon 10-09-2023 Magnesium [Mass/Vol] 1.3 mg/dL Low 1.8-2.6 [facility] Comment on above: Performed By: #### C BCA, PINR, 78115-5, BMP, 3040-3, 64803-2, 5643-2, LIVR, 07745-8, 87100-6, THYR, 53930-1, 32602-5 #### [facility] ([id number]) [address] [place] [address] 31056 C REACTIVE PROTEINon 024 CRP [Mass/Vol] mg/L Normal 0.000-0.744 [facility] Comment on above: Performed By: #### C BCA, PINR, 58742-7, BMP, 3040-3, 61673-8, 5643-2, LIVR, 22207-6, 61979-8, THYR, 00118-2, 17201-1 #### [facility] ([id number]) [address] [place] [address] 16820 CBC AND AUTO DIFFon 10-08-19 24 ABSOLUTE BASOPHIL 0.0 X10E9/L Normal 0.0-0.2 [facility] Comment on above: Performed By: #### C BCA, PINR, 88569-5, BMP, 3040-3, 30378-2, 5643-2, LIVR, 51930-6, 04839-0, THYR, 23532-7, 43273-4 #### [facility] ([id number]) [address] [place] [address] 00422 ABSOLUTE NEUTROPHIL 8.4 X10E9/L High 1.5-6.6 [facility] Comment on above: Performed By: #### C BCA, PINR, 83032-7, BMP, 3040-3, 34694-1, 5643-2, LIVR, 01943-8, 12891-3, THYR, 96565-9, 76748-9 #### [facility] ([id number]) [address] [place] [address] 52859 Basophils/100 WBC (Bld) 0.4 % Normal [facility] Comment on above: Performed By: #### C BCA, PINR, 22388-6, BMP, 3040-3, 60251-1, 5643-2, LIVR, 14604-9, 46826-8, THYR, 11352-2, 31812-4 #### [facility] ([id number]) [address] [place] [address] 33165 Eosinophils (Bld) [#/Vol] 0.2 10*3/uL Normal 0.0-0.4 [facility] Comment on above: Performed By: #### C BCA, PINR, 43393-1, BMP, 3040-3, 58671-0, 5643-2, LIVR, 60923-9, 32826-9, THYR, 79061-0, 62735-4 #### [facility] ([id number]) [address] [place] [address] 96501 Eosinophils/100 WBC (Bld) 2.3 % Normal [facility] Comment on above: Performed By: #### C BCA, PINR, 73976-0, BMP, 3040-3, 52923-8, 5643-2, LIVR, 28203-3, 80851-5, THYR, 15911-4, 43586-4 #### [facility] ([id number]) [address] [place] [address], [place] [address] Erythrocyte distribution width (RBC) [Ratio] 17.0 % High 11.5-15.0 [facility] Comment on above: Performed By: #### C BCA, PINR, 13929-7, BMP, 3040-3, 18094-9, 5643-2, LIVR, 29867-4, 17172-8, THYR, 49270-5, 61790-8 #### [facility] ([id number]) [address] [place] [address] 22664 Hematocrit (Bld) [Volume fraction] 36.6 % Low 39-49 [facility] Comment on above: Performed By: #### C BCA, PINR, 52536-8, BMP, 3040-3, 34992-9, 5643-2, LIVR, 67444-1, 45928-3, THYR, 76081-0, 44055-5 #### [facility] ([id number]) [address] [place] [address] 95203 Hemoglobin (Bld) [Mass/Vol] 12.3 g/dL Low 13.0-17.0 [facility] Comment on above: Performed By: #### C BCA, PINR, 44607-8, BMP, 3040-3, 52685-1, 5643-2, LIVR, 46469-7, 65822-0, THYR, 51398-7, 01253-1 #### [facility] ([id number]) [address] [place] [address] 21800 Lymphocytes (Bld) [#/Vol] 1.2 10*3/uL Normal 1.0-3.5 [facility] Comment on above: Performed By: #### C BCA, PINR, 76158-9, BMP, 3040-3, 47132-0, 5643-2, LIVR, 60123-7, 96859-2, THYR, 38941-4, 47873-7 #### [facility] ([id number]) [address] [place] [address] 20646 Lymphocytes/100 WBC (Bld) 11.6 % Normal [facility] Comment on above: Performed By: #### C BCA, PINR, 76357-7, BMP, 3040-3, 03166-1, 5643-2, LIVR, 40248-6, 24117-3, THYR, 05510-9, 48142-9 #### [facility] ([id number]) [address] [place] [address] 16341 MCH (RBC) [Entitic mass] 26.9 pg Low 27-34 [facility] Comment on above: Performed By: #### C BCA, PINR, 08373-8, BMP, 3040-3, 90412-1, 5643-2, LIVR, 78600-6, 11641-5, THYR, 28801-7, 38771-3 #### [facility] ([id number]) [address] [place] [address] 58179 MCHC (RBC) [Mass/Vol] 33.7 g/dL Normal 32-36 [facility] Comment on above: Performed By: #### C BCA, PINR, 54407-0, BMP, 3040-3, 74801-1, 5643-2, LIVR, 17518-9, 24475-4, THYR, 66330-0, 23401-5 #### [facility] ([id number]) [address] [place] [address] 59570 MCV (RBC) [Entitic vol] 80 fL Normal 80-100 [facility] Comment on above: Performed By: #### C BCA, PINR, 65760-2, BMP, 3040-3, 02003-4, 5643-2, LIVR, 48031-4, 98658-8, THYR, 60858-3, 54878-3 #### [facility] ([id number]) [address] [place] [address] 91928 Monocytes (Bld) [#/Vol] 0.7 10*3/uL Normal 0-0.9 [facility] Comment on above: Performed By: #### C BCA, PINR, 54920-7, BMP, 3040-3, 80068-0, 5643-2, LIVR, 95272-6, 59831-1, THYR, 38684-9, 71000-2 #### [facility] ([id number]) [address] [place] [address] 97554 Monocytes/100 WBC (Bld) 6.7 % Normal [facility] Comment on above: Performed By: #### C BCA, PINR, 30725-5, BMP, 3040-3, 06848-9, 5643-2, LIVR, 03234-9, 93526-6, THYR, 19976-8, 28570-1 #### [facility] ([id number]) [address] [place] [address] 12679 Neutrophils/100 WBC (Bld) 79.0 % Normal [facility] Comment on above: Performed By: #### C BCA, PINR, 89690-1, BMP, 3040-3, 57471-2, 5643-2, LIVR, 28295-5, 02793-1, THYR, 28579-0, 37992-1 #### [facility] ([id number]) [address] [place] [address] 07574 Platelet mean volume (Bld) [Entitic vol] 6.6 fL Low 7-12 [facility] Comment on above: Performed By: #### C BCA, PINR, 84940-3, BMP, 3040-3, 60151-7, 5643-2, LIVR, 84975-5, 14092-1, THYR, 47321-0, 23206-6 #### [facility] ([id number]) [address] [place] [address], [place] [address] Platelets (Bld) [#/Vol] 397 10*3/uL Normal 150-450 [facility] Comment on above: Performed By: #### C BCA, PINR, 95184-8, BMP, 3040-3, 14548-2, 5643-2, LIVR, 44837-4, 44399-1, THYR, 02147-6, 31053-3 #### [facility] ([id number]) [address] [place] [address] 58075 RBC COUNT 4.58 X10E12/L Normal 4.10-5.70 [facility] Comment on above: Performed By: #### C BCA, PINR, 09312-2, BMP, 3040-3, 20635-9, 5643-2, LIVR, 20901-8, 57388-2, THYR, 12420-5, 54033-5 #### [facility] ([id number]) [address] [place] [address] 61594 WBC (Bld) [#/Vol] 10.7 10*3/uL Normal 4.0-11.0 [facility] Comment on above: Performed By: #### C BCA, PINR, 35662-6, BMP, 3040-3, 41362-5, 5643-2, LIVR, 94919-8, 30401-6, THYR, 04196-9, 19658-9 #### [facility] ([id number]) [address] [place] [address] 01608 COMPREHENSIVE METABOLIC PANE Nilson 10-08-2023 Albumin [Mass/Vol] 3.7 g/dL Normal 3.2-5.3 [facility] Comment on above: Performed By: #### C BCA, PINR, 20001-6, BMP, 3040-3, 59485-2, 5643-2, LIVR, 60453-5, 70904-4, THYR, 71548-0, 22646-8 #### [facility] ([id number]) [address] [place] [address] [place] [address] ALP [Catalytic activity/Vol] 66 U/L Normal 39-130 [facility] Comment on above: Performed By: #### C BCA, PINR, 96041-9, BMP, 3040-3, 06481-4, 5643-2, LIVR, 09894-6, 51392-6, THYR, 07184-0, 94266-2 #### [facility] ([id number]) [address] [place] [address] 87852 ALT [Catalytic activity/Vol] 14 U/L Normal 0-40 [facility] Comment on above: Performed By: #### C BCA, PINR, 37889-0, BMP, 3040-3, 59501-8, 5643-2, LIVR, 99874-9, 52758-8, THYR, 45106-2, 38373-3 #### [facility] ([id number]) [address] [place] [address] 26707 Anion gap [Moles/Vol] 12 mmol/L Normal 5-15 [facility] Comment on above: Performed By: #### C BCA, PINR, 75608-2, BMP, 3040-3, 82879-7, 5643-2, LIVR, 77087-0, 18123-7, THYR, 88773-2, 79941-4 #### [facility] ([id number]) [address] [place] [address] 44340 AST [Catalytic activity/Vol] 17 U/L Normal 0-41 [facility] Comment on above: Performed By: #### C BCA, PINR, 87889-3, BMP, 3040-3, 04912-8, 5643-2, LIVR, 93205-9, 25002-1, THYR, 50587-7, 13781-9 #### [facility] ([id number]) [address] [place] [address] 93316 Bilirubin [Mass/Vol] 1.0 mg/dL Normal 0.3-1.2 [facility] Comment on above: Performed By: #### C BCA, PINR, 15665-2, BMP, 3040-3, 21403-7, 5643-2, LIVR, 61336-0, 63452-4, THYR, 71620-4, 94144-5 #### [facility] ([id number]) [address] [place] [address] 28726 Calcium [Mass/Vol] 9.2 mg/dL Normal 8.5-10.5 [facility] Comment on above: Performed By: #### C BCA, PINR, 68108-9, BMP, 3040-3, 59159-5, 5643-2, LIVR, 59534-9, 84857-8, THYR, 20208-9, 55711-0 #### [facility] ([id number]) [address] [place] [address] 40728 Chloride [Moles/Vol] 104 mmol/L Normal 98-109 [facility] Comment on above: Performed By: #### C BCA, PINR, 81757-0, BMP, 3040-3, 46825-5, 5643-2, LIVR, 39120-8, 30720-0, THYR, 50461-4, 37073-7 #### [facility] ([id number]) [address] [place] [address] 61296 CO2 [Moles/Vol] 20 mmol/L Low 22-32 [facility] Comment on above: Performed By: #### C BCA, PINR, 24674-6, BMP, 3040-3, 94238-4, 5643-2, LIVR, 81049-5, 73312-7, THYR, 17117-4, 54847-6 #### [facility] ([id number]) [address] [place] [address] [place] [address] Creatinine [Mass/Vol] 1.02 mg/dL Normal 0.70-1.20 [facility] Comment on above: Result Comment: METH OD TRACEABLE TO IDMS STANDARD Performed By: #### C BCA, PINR, 16176-9, BMP, 3040-3, 62904-9, 5643-2, LIVR, 83892-4, 97843-5, THYR, 31185-5, 75621-8 #### [facility] ([id number]) [address] [place] [address] 99603 GFR/1.73 sq M.predicted among non-blacks MDRD (S/P/Bld) [Vol rate/Area] 77 mL/min/{1.73_m2} Normal >59 [facility] Comment on above: Result Comment: Reported eGFR is based on the CKD-EPI 2020 equation that does not use a race coefficient. Performed By: #### C BCA, PINR, 71713-0, BMP, 3040-3, 80215-3, 5643-2, LIVR, 82499-4, 04703-0, THYR, 13309-8, 42898-3 #### [facility] ([id number]) [address] [place] [address] 92836 Glucose [Mass/Vol] 121 mg/dL High 65-99 [facility] Comment on above: Performed By: #### C BCA, PINR, 70072-8, BMP, 3040-3, 80246-4, 5643-2, LIVR, 41557-9, 98852-8, THYR, 50154-8, 33971-2 #### [facility] ([id number]) [address] [place] [address] 61434 Potassium [Moles/Vol] 3.5 mmol/L Normal 3.5-5.0 [facility] Comment on above: Performed By: #### C BCA, PINR, 12386-9, BMP, 3040-3, 31624-3, 5643-2, LIVR, 53826-2, 91831-4, THYR, 45084-4, 35421-0 #### [facility] ([id number]) [address] [place] [address] 78968 Protein [Mass/Vol] 7.8 g/dL Normal 6.0-8.0 [facility] Comment on above: Performed By: #### C BCA, PINR, 85312-8, BMP, 3040-3, 94878-6, 5643-2, LIVR, 45123-8, 51641-9, THYR, 00065-2, 81339-0 #### [facility] ([id number]) [address] [place] [address] 52961 Sodium [Moles/Vol] 136 mmol/L Normal 134-146 [facility] Comment on above: Performed By: #### C BCA, PINR, 94647-4, BMP, 3040-3, 11555-6, 5643-2, LIVR, 53957-9, 22544-7, THYR, 84063-9, 71694-0 #### [facility] ([id number]) [address] [place] [address] 86634 Urea nitrogen [Mass/Vol] 36 mg/dL High 5-27 [facility] Comment on above: Performed By: #### C BCA, PINR, 76848-8, BMP, 3040-3, 46918-9, 5643-2, LIVR, 76605-9, 25164-8, THYR, 83733-7, 72421-4 #### [facility] ([id number]) [address] [place] [address] 18760 MAGNESIUMon 10-08-2023 Magnesium [Mass/Vol] 1.6 mg/dL Low 1.8-2.6 [facility] Comment on above: Performed By: #### C BCA, PINR, 96547-6, BMP, 3040-3, 68986-6, 5643-2, LIVR, 42718-1, 95211-8, THYR, 12393-5, 19884-2 #### [facility] ([id number]) [address] [place] [address] 23077 SARS/FLU A+B/RSV by NAAT/Mol ecularon 10-08-2023 SARS/FLU A+B/RSV by NAAT/Molecular FLU A PCR Negative (qualifier value) FLU B PCR Negative (qualifier value) RSV by PCR Negative (qualifier value) SARS CoV 2 Not detected (qualifier value) NOTE The Xpert Xpress SARS-CoV-2/Flu/RSV Plus test is a rapid, multiplexed real-time RT-PCR test intended for the simultaneous qualitative detection and differentiation of SARS-CoV-2, influenza A, influenza B and respiratory syncytial virus (RSV) viral RNA from individuals suspected of respiratory viral infection consistent with COVID-19 by their healthcare provider. This test has not been validated in asymptomatic patients. The Xpert Xpress SARS-CoV-2 test is intended for use by qualified and trained operators who are performing tests using either [employer] or [employer] systems and is limited to laboratories that meet the CLIA requirements to perform high and moderate complexity tests. The Xpert Xpress SARS-CoV-2/Flu/RSV Plus is only for use under the Food and Drug Administration's Emergency Use Authorization. Results are for the simultaneous detection and differentiation of SARS-CoV-2, influenza A, influenza B and RSV nucleic acids in clinical specimens. SARS-CoV-2, influenza A, influenza B and RSV RNA identified by this test are generally detectable in upper respiratory samples during the acute phase of infection. Positive results are indicative of the presence of the identified virus, but do not rule out bacterial infection or co-infection with other pathogens not detected by this test. Clinical correlation with patient history and other diagnostic information is necessary to determine patient infection status. The agent detected may not be the definite cause of disease. Negative results do not preclude SARS-CoV-2, influenza A, influenza B and RSV infection and should not be used as the sole basis for treatment or other patient management decisions. Negative results must be combined with clinical observations, patient history and epidemiological information. An Invalid result may occur with specimen-associated inhibition unable to be resolved with specimen repeat. Fact Sheet for Healthcare Providers: https://www.fda.gov/m edia/544114/download Fact Sheet for Patients: https://www.fda.gov/m edia/746802/download Normal [facility] Comment on above: Performed By: #### C BCA, PINR, 02324-9, BMP, 3040-3, 33931-6, 5643-2, LIVR, 13599-1, 65690-2, THYR, 69108-3, 89558-3 #### [facility] ([id number]) [address] [place] [address] URINE CULTUREon 10-08-2023 Bacteria identified Cx Nom (U) CULTURE RESULTS >100,000 ORGANISMS/mL PSEUDOMONAS AERUGINOSA 10,000 to 50,000 ORGANISMS/mL KLEBSIELLA PNEUMONIAE [ S = SUSCEPTIBLE R = RESISTANT I = INTERMEDIATE S-DO = Susceptible-dose dependent NS = Non-suscceptible NO = No Interpretation ] Organism: PSEUDOMONAS AERUGINOSA Antibiotic Interpretation BEAU Status AMIKACIN S <=2 F CEFEPIME I 16 F CIPROFLOXACIN R >=4 F LEVOFLOXACIN R >=8 F MEROPENEM UNK 4 F CLSI interpretation for Meropenem and Pseudomonas aeruginosa with an M.I.C. value of 4 is Intermediate. PIPERACILLIN R >=128 F TOBRAMYCIN S <=1 F [ S = SUSCEPTIBLE R = RESISTANT I = INTERMEDIATE S-DO = Susceptible-dose dependent NS = Non-suscceptible NO = No Interpretation ] Organism: KLEBSIELLA PNEUMONIAE Antibiotic Interpretation BEAU Status AMPICILLIN R 16 F AMP/SULBACTAM S <=2/1 F CEFAZOLIN S <=4 F CEFTRIAXONE S <=1 F CIPROFLOXACIN S <=0.25 F GENTAMICIN S <=1 F LEVOFLOXACIN S <=0.12 F NITROFURANTOIN I 64 F PIPERACIL/TAZOBACTAM S <=4 F TOBRAMYCIN S <=1 F TRIMETH/SULFAMETHOXAZ OLE S <=1/19 F Susceptible [facility] Comment on above: Performed By: #### C BCA, PINR, 53522-4, BMP, 3040-3, 83118-3, 5643-2, LIVR, 23203-6, 35502-0, THYR, 43471-0, 27158-5 #### [facility] ([id number]) [address] [facility], [place] [address] URN MACROSCOPIC NURon 2023 BILIRUBIN TORRES Negative Normal NEG [facility] Comment on above: Performed By: #### C BCA, PINR, 57251-9, BMP, 3040-3, 97851-2, 5643-2, LIVR, 57476-5, 39391-7, THYR, 60009-0, 78966-5 #### [facility] ([id number]) [address] [place] [address] [place] [address] BLOOD/HGB TORRES Large Abnormal NEG [facility] Comment on above: Performed By: #### C BCA, PINR, 45025-6, BMP, 3040-3, 38208-7, 5643-2, LIVR, 37753-8, 81596-1, THYR, 23827-7, 21639-2 #### [facility] ([id number]) [address] [place] [address] [place] [address] GLUCOSE TORRES Negative Normal NEG [facility] Comment on above: Performed By: #### C BCA, PINR, 78823-3, BMP, 3040-3, 60249-6, 5643-2, LIVR, 14359-5, 34440-3, THYR, 92292-4, 77375-0 #### [facility] ([id number]) [address] [place] [address] [place] [address] KETONES TORRES 15 mg/dL Abnormal NEG [facility] Comment on above: Performed By: #### C BCA, PINR, 05241-0, BMP, 3040-3, 17584-3, 5643-2, LIVR, 10349-3, 18576-3, THYR, 68888-2, 02195-0 #### [facility] ([id number]) [address] [place] [address] [place] [address] LEUKOCYTE ESTERASE TORRES Small Abnormal NEG [facility] Comment on above: Performed By: #### C BCA, PINR, 15360-9, BMP, 3040-3, 27580-3, 5643-2, LIVR, 42356-3, 57888-3, THYR, 47538-5, 40249-7 #### [facility] ([id number]) [address] [place] [address] [place] [address] NITRITE TORRES Positive Abnormal NEG [facility] Comment on above: Performed By: #### C BCA, PINR, 34152-1, BMP, 3040-3, 98415-1, 5643-2, LIVR, 57214-6, 35913-6, THYR, 76468-6, 00584-9 #### [facility] ([id number]) [address] [place] [address] PH TORRES 6.5 Normal 5.0-8.5 [facility] Comment on above: Performed By: #### C BCA, PINR, 14026-2, BMP, 3040-3, 37539-7, 5643-2, LIVR, 63392-4, 14326-4, THYR, 54101-2, 91948-9 #### [facility] ([id number]) [address] [place] [address] [place] [address] PROTEIN TORRES 100 mg/dL Abnormal NEG [facility] Comment on above: Performed By: #### C BCA, PINR, 41679-1, BMP, 3040-3, 17112-9, 5643-2, LIVR, 54520-7, 71997-1, THYR, 62641-8, 67420-6 #### [facility] ([id number]) [address] [place] [address] [place] [address] SPECIFIC GRAVITY TORRES >=1.030 Normal 1.003-1.035 [facility] Comment on above: Performed By: #### C BCA, PINR, 33073-3, BMP, 3040-3, 97993-6, 5643-2, LIVR, 08353-6, 66079-1, THYR, 68829-6, 32841-2 #### [facility] ([id number]) [address] [place] [address], [place] [address] UROBILINOGEN TORRES 1.0 eu/dL Normal <1.1 [facility] Comment on above: Performed By: #### C BCA, PINR, 35521-7, BMP, 3040-3, 20092-0, 5643-2, LIVR, 81074-3, 64213-5, THYR, 49034-4, 97584-6 #### [facility] ([id number]) [address] [facility], [place] [address] URINE CULTUREon 09-28-2023 Bacteria identified Cx Nom (U) CULTURE RESULTS >100,000 ORGANISMS/mL KLEBSIELLA PNEUMONIAE CULTURE IN PROGRESS Abnormal [facility] Comment on above: Performed By: #### 6 30-4 #### [facility] ([id number]) [address] [place] [address], [address] [place] [address] Aerobic Cultureon 09-22-2023 Aerobic Culture ORGANISM: Enterococcus faecalis (O:ENTFAC) Quantity of Growth Moderate Growth ORGANISM: Methicillin Resis Staph Aureus (O:MRSA) Quantity of Growth Moderate Growth ORGANISM: Bacteroides fragilis (O:BACFRA) Comments Sent to [facility] for Sensitivity Testing Quantity of Growth Light Growth Please see scanned report located in the EMR under the Diagnostics tab -> Scanned Lab Reports -> Laboratory. Gram Stain Result Rare Gram Positive Cocci Rare White Blood Cells Aerobic BEAU Charge (PCMIC38) ---- SUSCEPTIBILITY --- ORGANISM: O:ENTFAC ANTIBIOTIC INTERPRETATION BEAU Ampicillin S <2 Daptomycin S 1 Linezolid S 2 Vancomycin S 1 Aerobic BEAU Charge (PCMIC38) ---- SUSCEPTIBILITY --- ORGANISM: O:MRSA ANTIBIOTIC INTERPRETATION BEAU Azithromycin R >4 Ceftaroline S <0.5 Clindamycin S <0.25 Daptomycin S 1 Linezolid S 2 Oxacillin R >2 Penicillin R >2 Tetracycline S <4 Trimethoprim/Sulfamet hoxazole S <0.5 Vancomycin S 1 S = SUSCEPTIBLE I = INTERMEDIATE R = RESISTANT BLANK = DATA NOT AVAILABLE, OR DRUG NOT ADVISABLE OR TESTED R* = RESISTANCE DUE TO EXTENDED SPECTRUM BETA-LACTAMASES ESBL = EXTENDED SPECTRUM BETA-LACTAMASE TFG = THYMIDINE-DEPENDENT STRAIN OSIEL = BETA-LACTAMASE POSITIVE IB = INDUCIBLE BETA-LACTAMASE. APPEARS IN PLACE OF 'S' WITH SPECIES KNOWN TO POSSESS INDUCIBLE BETA-LACTAMASES. POTENTIALLY THEY MAY BECOME RESISTANT TO ALL B-LACTAM DRUGS. PERFORMED BY: [place] [address] PATHOLOGIST ROTARY KILN OPERATOR LEANDRO DINERO M.D. Normal [facility] Comment on above: Performed By: #### A ERC #### [address] Gram stain for investigation of transfusion reactionOrdered By: Martha Wilkes on 09-22-2023 Microscopic observation Gram stain Nom (Unsp spec) Bacteroides fragilis [facility] Blood Urea Nitrogenon 2023 Urea nitrogen [Mass/Vol] 19 mg/dL Normal 7-25 [facility] Comment on above: Performed By: #### C REAT, BUN #### [address] Creatinineon 09-13-2023 Creatinine [Mass/Vol] 0.82 mg/dL Normal 0.70-1.30 [facility] Comment on above: Performed By: #### C REAT BUN #### [address] Creatinine Clr Calc Pharmacy 78.09 Normal [facility] Comment on above: Result Comment: PERF ORMED BY: [place] [address] PATHOLOGIST ROTARY KILN OPERATOR LEANDRO DINERO M.D. Performed By: #### C REAT, BUN #### [place] [address] [place] GFR/1.73 sq M.predicted MDRD (S/P/Bld) [Vol rate/Area] mL/min/{1.73_m2} Normal [facility] Comment on above: Performed By: #### C REAT, BUN #### [place] [address] [place] Creatinine [Mass/volume] in Serum or PlasmaOrdered By: Steven Horta on 09-13-2023 Creatinine [Mass/Vol] 0.82 mg/dL 0.70-1.30 [facility] No Panel InformationOrdered By: Steven Horta on 09-13-2023 Estimated GFR (CKD-EPI) > 60.0 mL/Min [facility] Creatinine Clearance (Chem 78.09 [facility] Urea nitrogen [Mass/volume] in Serum or PlasmaOrdered By: Steven Horta on 09-13-2023 Urea nitrogen [Mass/Vol] 19 mg/dL 7-25 [facility] Automated erythrocytes count in urine sediment (number/area)Ordered By: Jose Enrique Almendarez on 08-28-2023 RBC Auto (Urine sed) [#/Area] 50-100 [HPF] 0-4 [facility] Automated leukocytes count i n urine sediment (number/area)Ordered By: Jose Enrique Almendarez on 08-28-2023 WBC Auto (Urine sed) [#/Area] Innumerable [HPF] 0-4 [facility] Automated urine color determ inationOrdered By: Jose Enrique Almendarez on 08-28-2023 Color (U) Dark yellow Critically abnormal Yellow [facility] Comment on above: Order Comment: Name Collection Type:: Ramos Catheter Performed By: #### A JARED LICEA #### [address] Automated urine hyaline cast s count (number/volume)Ordered By: Jose Enrique Almendarez on 08-28-2023 Hyaline casts Auto (U) [#/Vol] None seen [LPF] 0-1 [facility] Automated urine sediment sarah cium oxalate crystal count by microscopy (number/high powOrdered By: Jose Enrique Almendarez on 08-28-2023 Calcium oxalate crystals LM.HPF (Urine sed) [#/Area] 1+ [HPF] [facility] Bilirubin Test strip Ql (U)O rdered By: Jose Enrique Almendarez on 08-28-2023 Bilirubin Ql (U) Negative Negative [facility] Casts typing in urine sedime nt by light microscopyOrdered By: Jose Enrique Almendarez on 08-28-2023 Casts LM Nom (Urine sed) None seen [LPF] None Seen [facility] Dipstick and Microscopicon 0 08-28-2023 Appearance (U) Turbid Critically abnormal Clear [facility] Comment on above: Order Comment: Name Collection Type:: Ramos Catheter Performed By: #### A DDONUAPLUS, CUU #### [facility] [address] [place] [address] [place] Bacteria,Urine 4+ High None Seen [facility] Comment on above: Order Comment: Name Collection Type:: Ramos Catheter Performed By: #### A DDONUAPLUS, CUU #### [place] [address] [place] Bilirubin,Urine Negative Normal Negative [facility] Comment on above: Order Comment: Name Collection Type:: Ramos Catheter Performed By: #### A DDONUAPLUS, CUU #### [place] [address] [place] Calcium Oxalate Crystals,Urine 1+ Normal [facility] Comment on above: Order Comment: Name Collection Type:: Ramos Catheter Performed By: #### A DDONUAPLUS, CUU #### [place] [address] [place] Glucose Ql (U) Normal Normal Normal [facility] Comment on above: Order Comment: Name Collection Type:: Ramos Catheter Performed By: #### A DDONUAPLUS, CUU #### [place] [address] [place] Hyaline Casts,Urine None Seen Normal 0-1 [facility] Comment on above: Order Comment: Name Collection Type:: Ramos Catheter Performed By: #### A DDONUAPLUS, CUU #### [place] [id number] [place] Ketones Ql (U) 1+ High Negative [facility] Comment on above: Order Comment: Name Collection Type:: Ramos Catheter Performed By: #### A DDONUAPLUS, CUU #### [place] [id number] [place] Leukocyte esterase Test strip Ql (U) 4+ High Negative [facility] Comment on above: Order Comment: Name Collection Type:: Ramos Catheter Performed By: #### A DDONUAPLUS, CUU #### [facility] [address] [place] [address] [place] Nitrite,Urine Negative Normal Negative [facility] Comment on above: Order Comment: Name Collection Type:: Ramos Catheter Performed By: #### A DDONUAPLUS, CUU #### [address] Occult Blood,Urine 3+ High Negative [facility] Comment on above: Order Comment: Name Collection Type:: Ramos Catheter Result Comment: PERF ORMED BY: [place] [address] PATHOLOGIST ROTARY KILN OPERATOR LEANDRO DINERO M.D. Performed By: #### A DDONUAPLUS, CUU #### [place] [address] [place] Othe Crystals,Urine None Seen Normal [facility] Comment on above: Order Comment: Name Collection Type:: Ramos Catheter Performed By: #### A DDONUAPLUS, CUU #### [address] Other Casts,Urine None Seen Normal None Seen [facility] Comment on above: Order Comment: Name Collection Type:: Ramos Catheter Performed By: #### A DDONUAPLUS, CUU #### [place] [address] [place] RBC,Urine 50-100 High 0-4 [facility] Comment on above: Order Comment: Name Collection Type:: Ramos Catheter Performed By: #### A DDONUAPLUS, CUU #### [place] [address] [place] Specificy [place],Urine 1.029 Normal 1.001-1.030 [facility] Comment on above: Order Comment: Name Collection Type:: Ramos Catheter Performed By: #### A DDONUAPLUS, CUU #### [place] [address] [place] Squamous Epithelial Cell,Urine 5-9 High 0-2 [facility] Comment on above: Order Comment: Name Collection Type:: Ramos Catheter Performed By: #### A DDONUAPLUS, CUU #### [address] Urobilinogen,Urine Normal Normal Normal [facility] Comment on above: Order Comment: Name Collection Type:: Ramos Catheter Performed By: #### A DDONUAPLUS, CUU #### [address] WBC,Urine Innumerable High 0-4 [facility] Comment on above: Order Comment: Name Collection Type:: Ramos Catheter Performed By: #### A DDONUAPLUS, CUU #### [address] Yeast,Urine None Seen Normal None Seen [facility] Comment on above: Order Comment: Name Collection Type:: Ramos Catheter Result Comment: PERF ORMED BY: [place] [address] PATHOLOGIST ROTARY KILN OPERATOR LEANDRO DINERO M.D. Performed By: #### A DDONUAPLUS, CUU #### [address] Ketones Auto test strip (U) [Mass/Vol]Ordered By: Jose Enrique Almendarez on 08-28-2023 Ketones (U) [Mass/Vol] 1+ Negative [facility] Nitrite Test strip Ql (U)Ord ered By: Jose Enrique Almendarez on 08-28-2023 Nitrite Ql (U) Negative Negative [facility] Specific gravity Auto test s trip (U) [Rel density]Ordered By: Jose Enrique Almendarez on 08-28-2023 Specific gravity (U) [Rel density] 1.029 1.001-1.030 [facility] Squamous epithelial cells de tection in urine sediment by light microscopyOrdered By: Jose Enrique Almendarez on 08-28-2023 Epithelial cells.squamous LM Ql (Urine sed) 5-9 [HPF] 0-2 [facility] Urine Cultureon 08-28-2023 Bacteria identified Cx Nom (U) ORGANISM: Klebsiella pneumoniae (O:KLEPNE) [place] Count >100,000 ORGANISM: Enterococcus faecalis (O:ENTFAC) [place] Count 75,000 Aerobic BEAU Charge (NMIC56) ---- SUSCEPTIBILITY --- ORGANISM: O:KLEPNE ANTIBIOTIC INTERPRETATION BEAU Amikacin S <16 Amoxacillin/K Clavulanate S <8 Ampicillin/Sulbactam S <4 Aztreonam S <4 Cefazolin S <2 Cefepime S <2 Ceftazidime S <1 Ceftazidime/Avibactam S <4 Ceftolozane/Tazobacta m S <2 Ceftriaxone S <1 Cefuroxime S <4 Ciprofloxacin S <0.25 Ertapenem S <0.5 Gentamicin S <2 Levofloxacin S <0.5 Meropenem S <1 Meropenem/Vaborbactam S <2 Nitrofurantoin I 64 Piperacillin/Tazobact am S <8 Tetracycline S <4 Tigecycline S <2 Tobramycin S <2 Trimethoprim/Sulfamet hoxazole S <0.5 Aerobic BEAU Charge (PCMIC38) ---- SUSCEPTIBILITY --- ORGANISM: O:ENTFAC ANTIBIOTIC INTERPRETATION BEAU Ampicillin S <2 Ciprofloxacin S <1 Daptomycin S 1 Levofloxacin S <1 Linezolid S 2 Nitrofurantoin S <32 Penicillin S 2 Tetracycline S <4 Vancomycin S 1 S = SUSCEPTIBLE I = INTERMEDIATE R = RESISTANT BLANK = DATA NOT AVAILABLE, OR DRUG NOT ADVISABLE OR TESTED R* = RESISTANCE DUE TO EXTENDED SPECTRUM BETA-LACTAMASES ESBL = EXTENDED SPECTRUM BETA-LACTAMASE TFG = THYMIDINE-DEPENDENT STRAIN OSIEL = BETA-LACTAMASE POSITIVE IB = INDUCIBLE BETA-LACTAMASE. APPEARS IN PLACE OF 'S' WITH SPECIES KNOWN TO POSSESS INDUCIBLE BETA-LACTAMASES. POTENTIALLY THEY MAY BECOME RESISTANT TO ALL B-LACTAM DRUGS. PERFORMED BY: [address] [address] PATHOLOGIST ROTARY KILN OPERATOR LEANDRO DINERO M.D. Normal [facility] Comment on above: Performed By: #### A JARED LICEA #### [facility] [address] [place] [id number] [facility] Urine bacteria detection by automated methodOrdered By: Jose Enrique Almendarez on 08-28-2023 Bacteria Auto Ql (U) 4+ None Seen [facility] Urine clarity by refractomet ry automatedOrdered By: Jose Enrique Almendarez on 08-28-2023 Clarity Refractometry automated (U) Turbid Clear [facility] Urine culture routineOrdered By: Jose Enrique Almendarez on 08-28-2023 Bacteria identified Cx Nom (U) Enterococcus faecalis [facility] Urine glucose measurement by automated test strip (mass/volume)Ordered By: Jose Enrique Almendarez on 08-28-2023 Glucose Auto test strip (U) [Mass/Vol] Normal mg/dL Normal [facility] Urine hemoglobin detection b y automated test stripOrdered By: Jose Enrique Almendarez on 08-28-2023 Hemoglobin Auto test strip Ql (U) 3+ Negative [facility] Urine leukocyte esterase det ection by automated test stripOrdered By: Jose Enrique Almendarez on 08-28-2023 Leukocyte esterase Auto test strip Ql (U) 4+ Negative [facility] Urine pH measurement by auto mated test stripOrdered By: Jose Enrique Almendarez on 08-28-2023 pH (U) 5.5 [pH] Normal 5.0-9.0 [facility] Comment on above: Order Comment: Name Collection Type:: Ramos Catheter Performed By: #### A JARED LICEA #### [facility] [address] [place] [id number] [place] Urine protein measurement by automated test strip (mass/volume)Ordered By: Jose Enrique Almendarez on 08-28-2023 Protein (U) [Mass/Vol] 300 mg/dL High Negative [facility] Comment on above: Order Comment: Name Collection Type:: Ramos Catheter Performed By: #### A ANUJA CUU #### [facility] [address] [place], [place] [id number] [place] Urine sediment crystal ident ification by light microscopyOrdered By: Jose Enrique Almendarez on 08-28-2023 Crystals LM Nom (Urine sed) None seen [HPF] [facility] Urobilinogen Auto test strip (U) [Mass/Vol]Ordered By: Jose Enrique Almendarez on 08-28-2023 Urobilinogen (U) [Mass/Vol] Normal mg/dL Normal [facility] Yeast detection in urine sed iment by light microscopyOrdered By: Jose Enrique Almendarez on 08-28-2023 Yeast LM Ql (Urine sed) None seen [HPF] None Se en [facility] US arterial pvr rest Ally US arterial pvr rest [facility] [place] [address] Ultrasound Report Signed Patient: Gagandeep Ahn MR#: [id number] 32 : 1950 Acct:[id number] Age/Sex: 72 / M ADM Date: 08/26/23 Loc: Room: Type: [facility] Attending Dr: Martha Wilkes APRN Ordering Provider: Martha Wilkes APRN Date of Service: 08/26/23 US/US arterial pvr rest LE: E11.59, I70.245, I70.235 Copies to: Martha Wilkes APRN LOWER EXTREMITY SEGMENTAL ARTERIAL DOPSCAN (PVR) INDICATION: Nonhealing wound PROCEDURE: Right arm blood pressure is 171 ,171 , left is 179 ,179 . Pressures throughout the right leg are 190 at the high thigh, at the 203 low thigh, 216 at the calf, cno at the ankle using the posterior tibial artery, and cno at the ankle using the dorsalis pedis artery with ankle-brachial index of -NC- -NC- . Pressures throughout the left leg are cno at the high thigh, at the 208 low thigh, cno at the calf and cno at the ankle using the posterior tibial artery, and cno at the ankle using the dorsalis pedis artery with ankle-brachial index of -NC- -NC- . Wave forms by plethysmography are pulsatile with mild blunting US/US arterial pvr rest LE IMPRESSION: Quantitative information is limited from this examination due to incompressibility. The toe brachial index is within normal limits bilaterally. Plethysmographic waveforms suggest perhaps mild occlusive disease. Impression dictated by: Austyn Martinez M.D.08/27/2023 10:50 AM Dictation Location: [place] [address] Tech: Stephani Lo Transcribed By: MARTHA 08/27/23 1050 Dictated By: Austyn Martinez MD 08/27/23 1049 Signed By: 08/27/23 1050 Normal [facility] XR calcaneus BIon 08-19-2023 XR calcaneus BI [place] [address] XRay Report Signed Patient: Gagandeep Ahn MR#: [id number] 32 : 1950 Acct:[id number] Age/Sex: 72 / M ADM Date: 08/19/23 Loc: Room: Type: [facility] Attending Dr: Martha Wilkes APRN Copies to: Martha Wilkes APRN Ordering Provider: Martha Wilkes APRN Date of Service: 08/19/23 XR/XR calcaneus BI: DM, BILAT. HEEL ULCERS, PAIN 2 views both calcaneus plain film COMPARISON:None HISTORY: Bilateral heel pain. RIGHT worse than LEFT. Diabetic ulcers bilaterally. ACUTE FINDINGS: None DEGENERATIVE CHANGE: Mild degeneration. Calcaneal spurring bilaterally. SOFT TISSUE FINDINGS: Atherosclerosis. Soft tissue swelling. No subcutaneous air. No radiodense foreign body. JOINT EFFUSION: None POSTOP CHANGES: LEFT ventricle fixation hardware. BONE MINERALIZATION: Adequate XR/XR calcaneus BI IMPRESSION: Mild soft tissue swelling. No subcutaneous air or radiodense foreign body. No acute bony involvement. Impression dictated by: Austyn Day M.D.08/19/2023 10:46 AM Dictation Location: [place] [address] Transcribed By: [facility] 08/19/23 1046 Dictated By: Austyn Day DO 08/19/23 1041 Signed By: 08/19/23 1046 Normal [facility] CBC AND AUTO DIFFon 06-30-19 ABSOLUTE BASOPHIL 0.0 X10E9/L Normal 0.0-0.2 [facility] Comment on above: Performed By: #### C BCA, PINR, 78331-4, BMP, 3040-3, 40358-1, 5643-2, LIVR, 20747-1, 67503-5, THYR, 27498-4, 34868-2 #### [facility] ([id number]) [address] [place] [address], [place] [address] ABSOLUTE NEUTROPHIL 12.7 X10E9/L High 1.5-6.6 [facility] Comment on above: Performed By: #### C BCA, PINR, 20072-7, BMP, 3040-3, 87308-7, 5643-2, LIVR, 76497-7, 79335-3, THYR, 08512-6, 80599-2 #### [facility] ([id number]) [address] [place] [address] [place] [address] Basophils/100 WBC (Bld) 0.1 % Normal [facility] Comment on above: Performed By: #### C BCA, PINR, 32479-4, BMP, 3040-3, 50122-1, 5643-2, LIVR, 58615-9, 25691-5, THYR, 09806-5, 92076-6 #### [facility] ([id number]) [address] [place] [address], [place] [address] Eosinophils (Bld) [#/Vol] 0.0 10*3/uL Normal 0.0-0.4 [facility] Comment on above: Performed By: #### C BCA, PINR, 43881-5, BMP, 3040-3, 05894-3, 5643-2, LIVR, 51624-5, 90431-7, THYR, 62927-0, 11464-1 #### [facility] ([id number]) [address] [place] [address] [place] [address] Eosinophils/100 WBC (Bld) 0.1 % Normal [facility] Comment on above: Performed By: #### C BCA, PINR, 85981-3, BMP, 3040-3, 09361-7, 5643-2, LIVR, 11473-4, 97995-4, THYR, 42018-1, 40254-0 #### [facility] ([id number]) [address] [place] [address] [place] [address] Erythrocyte distribution width (RBC) [Ratio] 15.1 % High 11.5-15.0 [facility] Comment on above: Performed By: #### C BCA, PINR, 14985-8, BMP, 3040-3, 24991-3, 5643-2, LIVR, 76647-0, 86667-8, THYR, 82522-0, 39772-9 #### [facility] ([id number]) [address] [place] [address] 45989 Hematocrit (Bld) [Volume fraction] 35.4 % Low 39-49 [facility] Comment on above: Performed By: #### C BCA, PINR, 73399-7, BMP, 3040-3, 74000-7, 5643-2, LIVR, 68021-4, 90458-9, THYR, 08112-5, 56015-3 #### [facility] ([id number]) [address] [place] [address] 10642 Hemoglobin (Bld) [Mass/Vol] 12.2 g/dL Low 13.0-17.0 [facility] Comment on above: Performed By: #### C BCA, PINR, 55854-6, BMP, 3040-3, 62085-7, 5643-2, LIVR, 29443-6, 68629-5, THYR, 75420-6, 36759-2 #### [facility] ([id number]) [address] [place] [address] 41606 Lymphocytes (Bld) [#/Vol] 0.5 10*3/uL Low 1.0-3.5 [facility] Comment on above: Performed By: #### C BCA, PINR, 08343-1, BMP, 3040-3, 32546-0, 5643-2, LIVR, 07009-0, 90800-0, THYR, 42370-9, 61037-4 #### [facility] ([id number]) [address] [place] [address] 34416 Lymphocytes/100 WBC (Bld) 3.9 % Normal [facility] Comment on above: Performed By: #### C BCA, PINR, 12288-9, BMP, 3040-3, 94999-0, 5643-2, LIVR, 13262-6, 01727-8, THYR, 68659-8, 55348-8 #### [facility] ([id number]) [address] [place] [address] 55044 MCH (RBC) [Entitic mass] 28.7 pg Normal 27-34 [facility] Comment on above: Performed By: #### C BCA, PINR, 32063-0, BMP, 3040-3, 74314-5, 5643-2, LIVR, 79792-7, 47835-6, THYR, 99158-5, 48548-3 #### [facility] ([id number]) [address] [place] [address], [place] [address] MCHC (RBC) [Mass/Vol] 34.4 g/dL Normal 32-36 [facility] Comment on above: Performed By: #### C BCA, PINR, 87853-9, BMP, 3040-3, 51017-5, 5643-2, LIVR, 22155-0, 96342-7, THYR, 74506-2, 25508-9 #### [facility] ([id number]) [address] [place] [address], [place] [address] MCV (RBC) [Entitic vol] 84 fL Normal 80-100 [facility] Comment on above: Performed By: #### C BCA, PINR, 76561-2, BMP, 3040-3, 12762-4, 5643-2, LIVR, 34640-7, 05876-5, THYR, 01728-1, 92894-3 #### [facility] ([id number]) [address] [place] [address] 96294 Monocytes (Bld) [#/Vol] 0.6 10*3/uL Normal 0-0.9 [facility] Comment on above: Performed By: #### C BCA, PINR, 31732-2, BMP, 3040-3, 03002-3, 5643-2, LIVR, 91144-0, 79979-2, THYR, 50544-7, 50306-6 #### [facility] ([id number]) [address] [place] [address] 24590 Monocytes/100 WBC (Bld) 4.4 % Normal [facility] Comment on above: Performed By: #### C BCA, PINR, 92950-5, BMP, 3040-3, 29926-9, 5643-2, LIVR, 18839-9, 47907-4, THYR, 48841-9, 29333-7 #### [facility] ([id number]) [address] [place] [address] [place] [address] Neutrophils/100 WBC (Bld) 91.5 % Normal [facility] Comment on above: Performed By: #### C BCA, PINR, 88021-8, BMP, 3040-3, 83105-3, 5643-2, LIVR, 23667-1, 53008-1, THYR, 49508-9, 30301-6 #### [facility] ([id number]) [address] [place] [address], [place] [address] Platelet mean volume (Bld) [Entitic vol] 8.6 fL Normal 7-12 [facility] Comment on above: Performed By: #### C BCA, PINR, 38186-4, BMP, 3040-3, 01311-6, 5643-2, LIVR, 03476-1, 08922-7, THYR, 67837-6, 09725-7 #### [facility] ([id number]) [address] [place] [address] 61378 Platelets (Bld) [#/Vol] 177 10*3/uL Normal 150-450 [facility] Comment on above: Performed By: #### C BCA, PINR, 23916-1, BMP, 3040-3, 61621-4, 5643-2, LIVR, 33366-3, 79311-8, THYR, 35308-8, 27743-7 #### [facility] ([id number]) [address] [place] [address] 17818 RBC COUNT 4.23 X10E12/L Normal 4.10-5.70 [facility] Comment on above: Performed By: #### C BCA, PINR, 11026-0, BMP, 3040-3, 50172-2, 5643-2, LIVR, 63221-9, 92177-8, THYR, 07222-7, 04756-2 #### [facility] ([id number]) [address] [place] [address] [place] [address] WBC (Bld) [#/Vol] 13.9 10*3/uL High 4.0-11.0 [facility] Comment on above: Performed By: #### C BCA, PINR, 07546-7, BMP, 3040-3, 03373-1, 5643-2, LIVR, 19167-2, 69089-9, THYR, 12011-1, 77128-0 #### [facility] ([id number]) [address] [place] [address] 57112 COMPREHENSIVE METABOLIC PANE Nilson 06-30-2023 Albumin [Mass/Vol] 3.1 g/dL Low 3.2-5.3 [facility] Comment on above: Performed By: #### C BCA, PINR, 88914-2, BMP, 3040-3, 62326-5, 5643-2, LIVR, 57200-0, 16869-1, THYR, 41618-3, 35631-4 #### [facility] ([id number]) [address] [place] [address] [place] [address] ALP [Catalytic activity/Vol] 42 U/L Normal 39-130 [facility] Comment on above: Performed By: #### C BCA, PINR, 55488-7, BMP, 3040-3, 34999-5, 5643-2, LIVR, 48706-2, 32210-1, THYR, 24728-3, 60794-1 #### [facility] ([id number]) [address] [place] [address] 58205 ALT [Catalytic activity/Vol] 46 U/L High 0-40 [facility] Comment on above: Performed By: #### C BCA, PINR, 50066-2, BMP, 3040-3, 71882-5, 5643-2, LIVR, 90876-0, 94254-0, THYR, 83924-8, 84419-1 #### [facility] ([id number]) [address] [place] [address] [place] [address] Anion gap [Moles/Vol] 10 mmol/L Normal 5-15 [facility] Comment on above: Performed By: #### C BCA, PINR, 51657-9, BMP, 3040-3, 73513-1, 5643-2, LIVR, 16988-5, 40697-2, THYR, 33575-3, 38860-0 #### [facility] ([id number]) [address] [place] [address] [place] [address] AST [Catalytic activity/Vol] 35 U/L Normal 0-41 [facility] Comment on above: Performed By: #### C BCA, PINR, 47062-8, BMP, 3040-3, 81648-9, 5643-2, LIVR, 31814-9, 28522-0, THYR, 85337-5, 42995-8 #### [facility] ([id number]) [address] [place] [address] [place] [address] Bilirubin [Mass/Vol] 1.2 mg/dL Normal 0.3-1.2 [facility] Comment on above: Performed By: #### C BCA, PINR, 16565-6, BMP, 3040-3, 39019-3, 5643-2, LIVR, 41265-4, 30010-4, THYR, 86341-8, 40683-4 #### [facility] ([id number]) [address] [place] [address] [place] [address] Calcium [Mass/Vol] 8.2 mg/dL Low 8.5-10.5 [facility] Comment on above: Performed By: #### C BCA, PINR, 95532-7, BMP, 3040-3, 96841-2, 5643-2, LIVR, 47277-8, 73868-5, THYR, 33372-6, 67905-5 #### [facility] ([id number]) [address] [place] [address] [place] [address] Chloride [Moles/Vol] 100 mmol/L Normal 98-109 [facility] Comment on above: Performed By: #### C BCA, PINR, 65485-6, BMP, 3040-3, 09127-6, 5643-2, LIVR, 56823-9, 89767-5, THYR, 67114-2, 74089-7 #### [facility] ([id number]) [address] [place] [address], [place] [address] CO2 [Moles/Vol] 23 mmol/L Normal 22-32 [facility] Comment on above: Performed By: #### C BCA, PINR, 95643-9, BMP, 3040-3, 17453-3, 5643-2, LIVR, 67889-0, 04485-2, THYR, 30331-5, 93883-8 #### [facility] ([id number]) [address] [place] [address] 53044 Creatinine [Mass/Vol] 1.02 mg/dL Normal 0.70-1.20 [facility] Comment on above: Result Comment: METH OD TRACEABLE TO IDMS STANDARD Performed By: #### C BCA, PINR, 07152-3, BMP, 3040-3, 11968-5, 5643-2, LIVR, 84980-3, 30932-1, THYR, 56695-2, 97704-9 #### [facility] ([id number]) [address] [place] [address] 13112 GFR/1.73 sq M.predicted among non-blacks MDRD (S/P/Bld) [Vol rate/Area] 77 mL/min/{1.73_m2} Normal >59 [facility] Comment on above: Result Comment: Reported eGFR is based on the CKD-EPI 2020 equation that does not use a race coefficient. Performed By: #### C BCA, PINR, 26762-8, BMP, 3040-3, 43715-8, 5643-2, LIVR, 57776-0, 08052-2, THYR, 10126-3, 20017-1 #### [facility] ([id number]) [address] [place] [address] 42841 Glucose [Mass/Vol] 168 mg/dL High 65-99 [facility] Comment on above: Performed By: #### C BCA, PINR, 54067-6, BMP, 3040-3, 56868-0, 5643-2, LIVR, 30394-3, 84144-2, THYR, 01291-6, 23048-5 #### [facility] ([id number]) [address] [place] [address] 58078 Potassium [Moles/Vol] 3.3 mmol/L Low 3.5-5.0 [facility] Comment on above: Performed By: #### C BCA, PINR, 10966-5, BMP, 3040-3, 23554-9, 5643-2, LIVR, 39919-0, 68179-5, THYR, 85881-5, 46876-7 #### [facility] ([id number]) [address] [place] [address] [place] [address] Protein [Mass/Vol] 6.7 g/dL Normal 6.0-8.0 [facility] Comment on above: Performed By: #### C BCA, PINR, 28309-8, BMP, 3040-3, 71876-0, 5643-2, LIVR, 60693-0, 76279-4, THYR, 92836-8, 22165-3 #### [facility] ([id number]) [address] [place] [address] 40554 Sodium [Moles/Vol] 133 mmol/L Low 134-146 [facility] Comment on above: Performed By: #### C BCA, PINR, 86105-8, BMP, 3040-3, 60874-5, 5643-2, LIVR, 04452-3, 43503-1, THYR, 19063-1, 20938-8 #### [facility] ([id number]) [address] [place] [address] [place] [address] Urea nitrogen [Mass/Vol] 21 mg/dL Normal 5-27 [facility] Comment on above: Performed By: #### C BCA, PINR, 47632-8, BMP, 3040-3, 97977-7, 5643-2, LIVR, 99376-4, 27812-7, THYR, 80619-0, 09296-9 #### [facility] ([id number]) [address] [place] [address] [place] [address] Glucose Glucometer (BldC) [M ass/Vol]on 06-30-2023 Glucose [Mass/Vol] 191 mg/dL High 65-99 [facility] Glucose [Mass/Vol] 188 mg/dL High 65-99 [facility] MAGNESIUMon 06-30-2023 Magnesium [Mass/Vol] 1.8 mg/dL Normal 1.8-2.6 [facility] Comment on above: Performed By: #### C BCA, PINR, 76961-8, BMP, 3040-3, 50926-0, 5643-2, LIVR, 55969-7, 97600-0, THYR, 67136-1, 26998-2 #### [facility] ([id number]) [address] [place] [address] 57881 POTASSIUMon 06-30-2023 Potassium [Moles/Vol] 3.7 mmol/L Normal 3.5-5.0 [facility] Comment on above: Performed By: #### C BCA, PINR, 00201-3, BMP, 3040-3, 41551-2, 5643-2, LIVR, 99916-6, 30190-2, THYR, 95324-9, 42601-3 #### [facility] ([id number]) [address] [place] [address], [place] [address] CBC AND AUTO DIFFon 06-29-19 24 ABSOLUTE BASOPHIL 0.0 X10E9/L Normal 0.0-0.2 [facility] Comment on above: Performed By: #### C BCA, PINR, 83200-0, BMP, 3040-3, 73368-5, 5643-2, LIVR, 75103-1, 67365-0, THYR, 46634-1, 40500-3 #### [facility] ([id number]) [address] [place] [address] [place] [address] ABSOLUTE NEUTROPHIL 6.1 X10E9/L Normal 1.5-6.6 [facility] Comment on above: Performed By: #### C BCA, PINR, 00045-2, BMP, 3040-3, 48446-6, 5643-2, LIVR, 42187-7, 55321-3, THYR, 79295-1, 27979-9 #### [facility] ([id number]) [address] [place] [address] 16575 Basophils/100 WBC (Bld) 0.5 % Normal [facility] Comment on above: Performed By: #### C BCA, PINR, 34253-2, BMP, 3040-3, 96534-4, 5643-2, LIVR, 53208-4, 75187-8, THYR, 29992-8, 12026-8 #### [facility] ([id number]) [address] [place] [address] 02045 Eosinophils (Bld) [#/Vol] 0.1 10*3/uL Normal 0.0-0.4 [facility] Comment on above: Performed By: #### C BCA, PINR, 40342-1, BMP, 3040-3, 02200-7, 5643-2, LIVR, 19152-1, 96763-6, THYR, 25684-1, 36144-2 #### [facility] ([id number]) [address] [place] [address] [place] [address] Eosinophils/100 WBC (Bld) 1.4 % Normal [facility] Comment on above: Performed By: #### C BCA, PINR, 91139-1, BMP, 3040-3, 01976-2, 5643-2, LIVR, 89809-8, 17635-7, THYR, 12386-4, 82194-3 #### [facility] ([id number]) [address] [place] [address] [place] [address] Erythrocyte distribution width (RBC) [Ratio] 15.2 % High 11.5-15.0 [facility] Comment on above: Performed By: #### C BCA, PINR, 98692-5, BMP, 3040-3, 26399-5, 5643-2, LIVR, 34307-8, 58133-9, THYR, 72316-1, 32644-1 #### [facility] ([id number]) [address] [place] [address] [place] [address] Hematocrit (Bld) [Volume fraction] 36.2 % Low 39-49 [facility] Comment on above: Performed By: #### C BCA, PINR, 30478-4, BMP, 3040-3, 99248-9, 5643-2, LIVR, 72960-3, 15179-6, THYR, 54807-8, 32210-7 #### [facility] ([id number]) [address] [place] [address] [place] [address] Hemoglobin (Bld) [Mass/Vol] 12.5 g/dL Low 13.0-17.0 [facility] Comment on above: Performed By: #### C BCA, PINR, 56016-8, BMP, 3040-3, 56374-4, 5643-2, LIVR, 65835-3, 12037-7, THYR, 86040-4, 81230-7 #### [facility] ([id number]) [address] [place] [address] [place] [address] Lymphocytes (Bld) [#/Vol] 0.9 10*3/uL Low 1.0-3.5 [facility] Comment on above: Performed By: #### C BCA, PINR, 89566-6, BMP, 3040-3, 49503-5, 5643-2, LIVR, 59672-2, 03353-5, THYR, 16206-0, 14506-7 #### [facility] ([id number]) [address] [place] [address] [place] [address] Lymphocytes/100 WBC (Bld) 11.6 % Normal [facility] Comment on above: Performed By: #### C BCA, PINR, 37818-9, BMP, 3040-3, 29954-7, 5643-2, LIVR, 77284-9, 41727-6, THYR, 98450-6, 40624-5 #### [facility] ([id number]) [address] [place] [address] [place] [address] MCH (RBC) [Entitic mass] 28.7 pg Normal 27-34 [facility] Comment on above: Performed By: #### C BCA, PINR, 29784-4, BMP, 3040-3, 40263-5, 5643-2, LIVR, 94146-0, 51959-6, THYR, 69108-9, 18076-9 #### [facility] ([id number]) [address] [place] [address] [place] [address] MCHC (RBC) [Mass/Vol] 34.4 g/dL Normal 32-36 [facility] Comment on above: Performed By: #### C BCA, PINR, 60789-3, BMP, 3040-3, 04670-3, 5643-2, LIVR, 11692-2, 16773-9, THYR, 19715-9, 00185-6 #### [facility] ([id number]) [address] [place] [address] [place] [address] MCV (RBC) [Entitic vol] 83 fL Normal 80-100 [facility] Comment on above: Performed By: #### C BCA, PINR, 63220-9, BMP, 3040-3, 36996-2, 5643-2, LIVR, 16792-1, 88917-2, THYR, 68809-2, 47572-7 #### [facility] ([id number]) [address] [place] [address] 26426 Monocytes (Bld) [#/Vol] 0.7 10*3/uL Normal 0-0.9 [facility] Comment on above: Performed By: #### C BCA, PINR, 96239-4, BMP, 3040-3, 05046-6, 5643-2, LIVR, 28846-8, 71073-9, THYR, 75091-2, 62035-5 #### [facility] ([id number]) [address] [place] [address] 49044 Monocytes/100 WBC (Bld) 8.5 % Normal [facility] Comment on above: Performed By: #### C BCA, PINR, 02497-2, BMP, 3040-3, 11265-9, 5643-2, LIVR, 47562-3, 38714-4, THYR, 32270-4, 56536-6 #### [facility] ([id number]) [address] [place] [address] 04864 Neutrophils/100 WBC (Bld) 78.0 % Normal [facility] Comment on above: Performed By: #### C BCA, PINR, 99893-0, BMP, 3040-3, 44199-8, 5643-2, LIVR, 52046-7, 84016-1, THYR, 81030-3, 77896-2 #### [facility] ([id number]) [address] [place] [address] 64815 Platelet mean volume (Bld) [Entitic vol] 7.9 fL Normal 7-12 [facility] Comment on above: Performed By: #### C BCA, PINR, 39406-2, BMP, 3040-3, 05083-8, 5643-2, LIVR, 10742-3, 82394-8, THYR, 72448-3, 07029-2 #### [facility] ([id number]) [address] [place] [address] 11093 Platelets (Bld) [#/Vol] 184 10*3/uL Normal 150-450 [facility] Comment on above: Performed By: #### C BCA, PINR, 16561-8, BMP, 3040-3, 21924-3, 5643-2, LIVR, 69506-1, 79446-5, THYR, 39887-6, 70258-1 #### [facility] ([id number]) [address] [place] [address] 22994 RBC COUNT 4.34 X10E12/L Normal 4.10-5.70 [facility] Comment on above: Performed By: #### C BCA, PINR, 45327-8, BMP, 3040-3, 22949-0, 5643-2, LIVR, 64527-1, 03960-9, THYR, 36894-4, 22573-6 #### [facility] ([id number]) [address] [place] [address] 11221 WBC (Bld) [#/Vol] 7.8 10*3/uL Normal 4.0-11.0 [facility] Comment on above: Performed By: #### C BCA, PINR, 43542-1, BMP, 3040-3, 82586-1, 5643-2, LIVR, 00662-4, 40910-6, THYR, 82836-5, 78302-5 #### [facility] ([id number]) [address] [place] [address] 005[address] COMPREHENSIVE METABOLIC PANE Nilson 06-29-2023 Albumin [Mass/Vol] 3.4 g/dL Normal 3.2-5.3 [facility] Comment on above: Performed By: #### C BCA, PINR, 17441-0, BMP, 3040-3, 65296-2, 5643-2, LIVR, 88808-8, 75793-8, THYR, 50875-6, 70229-1 #### [facility] ([id number]) [address] [place] [address] 52472 ALP [Catalytic activity/Vol] 43 U/L Normal 39-130 [facility] Comment on above: Performed By: #### C BCA, PINR, 38025-1, BMP, 3040-3, 40115-4, 5643-2, LIVR, 52060-9, 87126-9, THYR, 69252-9, 01084-2 #### [facility] ([id number]) [address] [place] [address] 81321 ALT [Catalytic activity/Vol] 63 U/L High 0-40 [facility] Comment on above: Performed By: #### C BCA, PINR, 78269-5, BMP, 3040-3, 87457-2, 5643-2, LIVR, 53088-4, 16959-5, THYR, 30053-1, 00749-5 #### [facility] ([id number]) [address] [place] [address] 34902 Anion gap [Moles/Vol] 8 mmol/L Normal 5-15 [facility] Comment on above: Performed By: #### C BCA, PINR, 87021-2, BMP, 3040-3, 00452-7, 5643-2, LIVR, 09420-2, 13547-8, THYR, 06673-8, 11397-7 #### [facility] ([id number]) [address] [place] [address] 90112 AST [Catalytic activity/Vol] 64 U/L High 0-41 [facility] Comment on above: Performed By: #### C BCA, PINR, 61743-1, BMP, 3040-3, 56027-9, 5643-2, LIVR, 83925-0, 16129-4, THYR, 81680-6, 01472-0 #### [facility] ([id number]) [address] [place] [address] 95644 Bilirubin [Mass/Vol] 0.7 mg/dL Normal 0.3-1.2 [facility] Comment on above: Performed By: #### C BCA, PINR, 15812-8, BMP, 3040-3, 78189-9, 5643-2, LIVR, 42253-4, 80303-8, THYR, 14582-4, 21453-1 #### [facility] ([id number]) [address] [place] [address] 39388 Calcium [Mass/Vol] 8.2 mg/dL Low 8.5-10.5 [facility] Comment on above: Performed By: #### C BCA, PINR, 66584-5, BMP, 3040-3, 53520-9, 5643-2, LIVR, 64343-8, 47283-5, THYR, 33942-8, 55898-4 #### [facility] ([id number]) [address] [place] [address] 27952 Chloride [Moles/Vol] 103 mmol/L Normal 98-109 [facility] Comment on above: Performed By: #### C BCA, PINR, 95593-9, BMP, 3040-3, 95505-6, 5643-2, LIVR, 64951-2, 86067-2, THYR, 34275-5, 20676-0 #### [facility] ([id number]) [address] [place] [address] 75220 CO2 [Moles/Vol] 22 mmol/L Normal 22-32 [facility] Comment on above: Performed By: #### C BCA, PINR, 37256-9, BMP, 3040-3, 42006-1, 5643-2, LIVR, 12424-8, 46457-4, THYR, 13752-6, 09725-5 #### [facility] ([id number]) [address] [place] [address] 05982 Creatinine [Mass/Vol] 1.12 mg/dL Normal 0.70-1.20 [facility] Comment on above: Result Comment: METH OD TRACEABLE TO IDMS STANDARD Performed By: #### C BCA, PINR, 25069-0, BMP, 3040-3, 19480-7, 5643-2, LIVR, 29938-2, 32630-9, THYR, 57587-2, 68850-9 #### [facility] ([id number]) [address] [place] [address] 75124 GFR/1.73 sq M.predicted among non-blacks MDRD (S/P/Bld) [Vol rate/Area] 69 mL/min/{1.73_m2} Normal >59 [facility] Comment on above: Result Comment: Reported eGFR is based on the CKD-EPI 2020 equation that does not use a race coefficient. Performed By: #### C BCA, PINR, 56263-6, BMP, 3040-3, 12775-8, 5643-2, LIVR, 65773-2, 23289-0, THYR, 52217-5, 92279-6 #### [facility] ([id number]) [address] [place] [address] 90234 Glucose [Mass/Vol] 151 mg/dL High 65-99 [facility] Comment on above: Performed By: #### C BCA, PINR, 90214-9, BMP, 3040-3, 55692-4, 5643-2, LIVR, 53586-7, 34724-8, THYR, 06503-0, 11719-6 #### [facility] ([id number]) [address] [place] [address] 16587 Potassium [Moles/Vol] 3.6 mmol/L Normal 3.5-5.0 [facility] Comment on above: Performed By: #### C BCA, PINR, 21944-4, BMP, 3040-3, 01265-9, 5643-2, LIVR, 20708-6, 05502-9, THYR, 72525-5, 10361-8 #### [facility] ([id number]) [address] [place] [address] 09259 Protein [Mass/Vol] 6.3 g/dL Normal 6.0-8.0 [facility] Comment on above: Performed By: #### C BCA, PINR, 85484-5, BMP, 3040-3, 98477-8, 5643-2, LIVR, 88158-3, 34078-1, THYR, 78014-1, 92768-2 #### [facility] ([id number]) [address] [place] [address] [place] [address] Sodium [Moles/Vol] 133 mmol/L Low 134-146 [facility] Comment on above: Performed By: #### C BCA, PINR, 59332-3, BMP, 3040-3, 94827-3, 5643-2, LIVR, 95764-7, 74394-6, THYR, 33396-0, 45025-5 #### [facility] ([id number]) [address] [place] [address] [place] [address] Urea nitrogen [Mass/Vol] 31 mg/dL High 5-27 [facility] Comment on above: Performed By: #### C BCA, PINR, 21715-2, BMP, 3040-3, 29244-3, 5643-2, LIVR, 15561-6, 34037-5, THYR, 08517-8, 12503-2 #### [facility] ([id number]) [address] [place] [address] 31137 Glucose Glucometer (BldC) [M ass/Vol]on 06-29-2023 Glucose [Mass/Vol] 216 mg/dL High 65-99 [facility] Glucose [Mass/Vol] 160 mg/dL High 65-99 [facility] Glucose [Mass/Vol] 196 mg/dL High 65-99 [facility] Glucose [Mass/Vol] 135 mg/dL High 65-99 [facility] MAGNESIUMon 06-29-2023 Magnesium [Mass/Vol] 1.7 mg/dL Low 1.8-2.6 [facility] Comment on above: Performed By: #### C BCA, PINR, 53353-7, BMP, 3040-3, 68344-3, 5643-2, LIVR, 20450-5, 15306-8, THYR, 09367-2, 83710-6 #### [facility] ([id number]) [address] [place] [address] 07803 CBC AND AUTO DIFFon 06-28-19 24 ABSOLUTE BASOPHIL 0.0 X10E9/L Normal 0.0-0.2 [facility] Comment on above: Performed By: #### C BCA, PINR, 16753-4, BMP, 3040-3, 82393-4, 5643-2, LIVR, 81937-7, 08282-0, THYR, 51621-8, 06353-5 #### [facility] ([id number]) [address] [place] [address] [place] [address] ABSOLUTE NEUTROPHIL 2.9 X10E9/L Normal 1.5-6.6 [facility] Comment on above: Performed By: #### C BCA, PINR, 13887-1, BMP, 3040-3, 88895-0, 5643-2, LIVR, 46526-5, 53552-4, THYR, 84959-0, 85845-4 #### [facility] ([id number]) [address] [place] [address], [place] [address] Basophils/100 WBC (Bld) 0.5 % Normal [facility] Comment on above: Performed By: #### C BCA, PINR, 17868-2, BMP, 3040-3, 95123-4, 5643-2, LIVR, 62073-3, 16273-8, THYR, 89611-2, 57078-0 #### [facility] ([id number]) [address] [place] [address] 66993 Eosinophils (Bld) [#/Vol] 0.1 10*3/uL Normal 0.0-0.4 [facility] Comment on above: Performed By: #### C BCA, PINR, 72085-8, BMP, 3040-3, 51359-6, 5643-2, LIVR, 44989-8, 55393-0, THYR, 71683-6, 12438-6 #### [facility] ([id number]) [address] [place] [address] 59654 Eosinophils/100 WBC (Bld) 2.2 % Normal [facility] Comment on above: Performed By: #### C BCA, PINR, 37686-7, BMP, 3040-3, 39093-6, 5643-2, LIVR, 84346-2, 25159-4, THYR, 83349-6, 80632-7 #### [facility] ([id number]) [address] [place] [address] 65330 Erythrocyte distribution width (RBC) [Ratio] 15.1 % High 11.5-15.0 [facility] Comment on above: Performed By: #### C BCA, PINR, 71395-4, BMP, 3040-3, 08716-9, 5643-2, LIVR, 55936-2, 94340-4, THYR, 13019-0, 49814-6 #### [facility] ([id number]) [address] [place] [address] 48359 Hematocrit (Bld) [Volume fraction] 39.2 % Normal 39-49 [facility] Comment on above: Performed By: #### C BCA, PINR, 41743-0, BMP, 3040-3, 72132-2, 5643-2, LIVR, 16949-2, 91748-7, THYR, 45077-1, 04973-4 #### [facility] ([id number]) [address] [place] [address] 22789 Hemoglobin (Bld) [Mass/Vol] 13.5 g/dL Normal 13.0-17.0 [facility] Comment on above: Performed By: #### C BCA, PINR, 85772-5, BMP, 3040-3, 84559-0, 5643-2, LIVR, 64293-0, 04999-0, THYR, 57900-9, 03107-2 #### [facility] ([id number]) [address] [place] [address] 87545 Lymphocytes (Bld) [#/Vol] 1.6 10*3/uL Normal 1.0-3.5 [facility] Comment on above: Performed By: #### C BCA, PINR, 89224-3, BMP, 3040-3, 99308-4, 5643-2, LIVR, 91558-6, 85959-3, THYR, 43498-1, 15709-1 #### [facility] ([id number]) [address] [place] [address] 20168 Lymphocytes/100 WBC (Bld) 30.7 % Normal [facility] Comment on above: Performed By: #### C BCA, PINR, 69970-0, BMP, 3040-3, 42464-3, 5643-2, LIVR, 28776-9, 28354-5, THYR, 62504-0, 95417-4 #### [facility] ([id number]) [address] [place] [address] 88860 MCH (RBC) [Entitic mass] 28.8 pg Normal 27-34 [facility] Comment on above: Performed By: #### C BCA, PINR, 32142-6, BMP, 3040-3, 27448-6, 5643-2, LIVR, 58514-4, 04144-2, THYR, 99515-6, 44281-1 #### [facility] ([id number]) [address] [place] [address] 70331 MCHC (RBC) [Mass/Vol] 34.5 g/dL Normal 32-36 [facility] Comment on above: Performed By: #### C BCA, PINR, 99235-8, BMP, 3040-3, 17532-1, 5643-2, LIVR, 52444-7, 48858-4, THYR, 98297-9, 84210-4 #### [facility] ([id number]) [address] [place] [address] 50278 MCV (RBC) [Entitic vol] 84 fL Normal 80-100 [facility] Comment on above: Performed By: #### C BCA, PINR, 42740-9, BMP, 3040-3, 48733-7, 5643-2, LIVR, 86588-6, 89784-3, THYR, 62840-1, 40627-5 #### [facility] ([id number]) [address] [place] [address] 10057 Monocytes (Bld) [#/Vol] 0.5 10*3/uL Normal 0-0.9 [facility] Comment on above: Performed By: #### C BCA, PINR, 96727-5, BMP, 3040-3, 32108-1, 5643-2, LIVR, 45217-7, 89893-9, THYR, 25965-5, 50697-2 #### [facility] ([id number]) [address] [place] [address] 96012 Monocytes/100 WBC (Bld) 10.0 % Normal [facility] Comment on above: Performed By: #### C BCA, PINR, 24174-1, BMP, 3040-3, 85542-3, 5643-2, LIVR, 82220-1, 13610-6, THYR, 34799-5, 32947-4 #### [facility] ([id number]) [address] [place] [address] 23427 Neutrophils/100 WBC (Bld) 56.6 % Normal [facility] Comment on above: Performed By: #### C BCA, PINR, 18565-1, BMP, 3040-3, 91304-9, 5643-2, LIVR, 71894-1, 98555-1, THYR, 99254-0, 24856-3 #### [facility] ([id number]) [address] [place] [address] 94284 Platelet mean volume (Bld) [Entitic vol] 8.3 fL Normal 7-12 [facility] Comment on above: Performed By: #### C BCA, PINR, 92670-0, BMP, 3040-3, 29748-0, 5643-2, LIVR, 31653-8, 28134-3, THYR, 10059-8, 65510-4 #### [facility] ([id number]) [address] [place] [address] 50823 Platelets (Bld) [#/Vol] 212 10*3/uL Normal 150-450 [facility] Comment on above: Performed By: #### C BCA, PINR, 65364-7, BMP, 3040-3, 09570-1, 5643-2, LIVR, 73542-3, 02569-0, THYR, 89085-0, 22393-5 #### [facility] ([id number]) [address] [place] [address] [place] [address] RBC COUNT 4.69 X10E12/L Normal 4.10-5.70 [facility] Comment on above: Performed By: #### C BCA, PINR, 21365-1, BMP, 3040-3, 24089-3, 5643-2, LIVR, 03175-0, 29259-4, THYR, 46223-6, 00814-8 #### [facility] ([id number]) [address] [place] [address] 60463 WBC (Bld) [#/Vol] 5.1 10*3/uL Normal 4.0-11.0 [facility] Comment on above: Performed By: #### C BCA, PINR, 70592-9, BMP, 3040-3, 37641-9, 5643-2, LIVR, 18766-3, 87352-6, THYR, 22157-5, 10804-4 #### [facility] ([id number]) [address] [place] [address] 18971 COMPREHENSIVE METABOLIC PANE Nilson 06-28-2023 Albumin [Mass/Vol] 3.4 g/dL Normal 3.2-5.3 [facility] Comment on above: Performed By: #### C BCA, PINR, 09233-0, BMP, 3040-3, 80282-8, 5643-2, LIVR, 74896-9, 60062-5, THYR, 04804-4, 51407-2 #### [facility] ([id number]) [address] [place] [address] 46037 ALP [Catalytic activity/Vol] 39 U/L Normal 39-130 [facility] Comment on above: Performed By: #### C BCA, PINR, 57078-6, BMP, 3040-3, 33058-4, 5643-2, LIVR, 45114-5, 69002-0, THYR, 07356-8, 58348-6 #### [facility] ([id number]) [address] [place] [address] [place] [address] ALT [Catalytic activity/Vol] 62 U/L High 0-40 [facility] Comment on above: Performed By: #### C BCA, PINR, 95971-8, BMP, 3040-3, 53088-3, 5643-2, LIVR, 61394-0, 95151-2, THYR, 55399-1, 93355-1 #### [facility] ([id number]) [address] [place] [address] 98358 Anion gap [Moles/Vol] 11 mmol/L Normal 5-15 [facility] Comment on above: Performed By: #### C BCA, PINR, 61088-3, BMP, 3040-3, 72038-7, 5643-2, LIVR, 12871-2, 82632-5, THYR, 24368-9, 79365-0 #### [facility] ([id number]) [address] [place] [address] 81547 AST [Catalytic activity/Vol] 87 U/L High 0-41 [facility] Comment on above: Performed By: #### C BCA, PINR, 05991-2, BMP, 3040-3, 58452-5, 5643-2, LIVR, 23887-9, 55515-1, THYR, 76363-4, 21960-9 #### [facility] ([id number]) [address] [place] [address] 33233 Bilirubin [Mass/Vol] 0.7 mg/dL Normal 0.3-1.2 [facility] Comment on above: Performed By: #### C BCA, PINR, 75535-9, BMP, 3040-3, 36856-2, 5643-2, LIVR, 23784-4, 08436-7, THYR, 06799-4, 75825-4 #### [facility] ([id number]) [address] [place] [address] 86488 Calcium [Mass/Vol] 8.6 mg/dL Normal 8.5-10.5 [facility] Comment on above: Performed By: #### C BCA, PINR, 96394-1, BMP, 3040-3, 61453-6, 5643-2, LIVR, 12366-2, 95338-8, THYR, 15020-0, 10728-9 #### [facility] ([id number]) [address] [place] [address] 89845 Chloride [Moles/Vol] 103 mmol/L Normal 98-109 [facility] Comment on above: Performed By: #### C BCA, PINR, 38283-4, BMP, 3040-3, 06826-3, 5643-2, LIVR, 80821-0, 89707-4, THYR, 42780-1, 30299-9 #### [facility] ([id number]) [address] [place] [address] 33227 CO2 [Moles/Vol] 21 mmol/L Low 22-32 [facility] Comment on above: Performed By: #### C BCA, PINR, 83417-2, BMP, 3040-3, 91974-0, 5643-2, LIVR, 13868-3, 68696-1, THYR, 29649-8, 25407-8 #### [facility] ([id number]) [address] [place] [address] 75120 Creatinine [Mass/Vol] 1.40 mg/dL High 0.70-1.20 [facility] Comment on above: Result Comment: METH OD TRACEABLE TO IDMS STANDARD Performed By: #### C BCA, PINR, 33987-6, BMP, 3040-3, 96875-0, 5643-2, LIVR, 00205-2, 40493-7, THYR, 74075-6, 55156-4 #### [facility] ([id number]) [address] [place] [address] 02417 GFR/1.73 sq M.predicted among non-blacks MDRD (S/P/Bld) [Vol rate/Area] 53 mL/min/{1.73_m2} Low >59 [facility] Comment on above: Result Comment: Reported eGFR is based on the CKD-EPI 2020 equation that does not use a race coefficient. Performed By: #### C BCA, PINR, 27771-7, BMP, 3040-3, 07191-2, 5643-2, LIVR, 77396-2, 82696-4, THYR, 74021-5, 27435-0 #### [facility] ([id number]) [address] [place] [address] 74566 Glucose [Mass/Vol] 127 mg/dL High 65-99 [facility] Comment on above: Performed By: #### C BCA, PINR, 76307-6, BMP, 3040-3, 21040-5, 5643-2, LIVR, 35101-3, 92388-1, THYR, 51900-3, 06961-3 #### [facility] ([id number]) [address] [place] [address] 81870 Potassium [Moles/Vol] 3.4 mmol/L Low 3.5-5.0 [facility] Comment on above: Performed By: #### C BCA, PINR, 96169-4, BMP, 3040-3, 23922-0, 5643-2, LIVR, 00178-1, 07485-8, THYR, 50497-7, 15451-9 #### [facility] ([id number]) [address] [place] [address] 97923 Protein [Mass/Vol] 6.6 g/dL Normal 6.0-8.0 [facility] Comment on above: Performed By: #### C BCA, PINR, 75976-7, BMP, 3040-3, 83068-2, 5643-2, LIVR, 03830-5, 68480-4, THYR, 52976-3, 96204-7 #### [facility] ([id number]) [address] [place] [address] 83898 Sodium [Moles/Vol] 135 mmol/L Normal 134-146 [facility] Comment on above: Performed By: #### C BCA, PINR, 19331-1, BMP, 3040-3, 88974-9, 5643-2, LIVR, 95100-9, 21892-9, THYR, 38595-8, 31225-2 #### [facility] ([id number]) [address] [place] [address], [place] [address] Urea nitrogen [Mass/Vol] 38 mg/dL High 5-27 [facility] Comment on above: Performed By: #### C BCA, PINR, 03068-8, BMP, 3040-3, 65313-7, 5643-2, LIVR, 63858-6, 50262-1, THYR, 18803-0, 08785-1 #### [facility] ([id number]) [address] [place] [address] 87453 Glucose Glucometer (BldC) [M ass/Vol]on 06-28-2023 Glucose [Mass/Vol] 123 mg/dL High 65-99 [facility] Glucose [Mass/Vol] 160 mg/dL High 65-99 [facility] Glucose [Mass/Vol] 208 mg/dL High 65-99 [facility] Glucose [Mass/Vol] 132 mg/dL High 65-99 [facility] MAGNESIUMon 06-28-2023 Magnesium [Mass/Vol] 2.1 mg/dL Normal 1.8-2.6 [facility] Comment on above: Performed By: #### C BCA, PINR, 28059-4, BMP, 3040-3, 12032-3, 5643-2, LIVR, 84683-8, 60877-1, THYR, 75548-8, 14134-8 #### [facility] ([id number]) [address] [place] [address] 28622 POTASSIUMon 06-28-2023 Potassium [Moles/Vol] 3.8 mmol/L Normal 3.5-5.0 [facility] Comment on above: Performed By: #### C BCA, PINR, 58398-8, BMP, 3040-3, 96847-1, 5643-2, LIVR, 16650-5, 72101-0, THYR, 31701-5, 86488-8 #### [facility] ([id number]) [address] [place] [address] 06119 CBC AND AUTO DIFFon 06-27-20 23 ABSOLUTE BASOPHIL 0.0 X10E9/L Normal 0.0-0.2 [facility] Comment on above: Performed By: #### C BCA, PINR, 95072-1, BMP, 3040-3, 44366-2, 5643-2, LIVR, 44843-4, 78399-3, THYR, 91699-5, 98218-9 #### [facility] ([id number]) [address] [place] [address], [place] [address] ABSOLUTE NEUTROPHIL 4.4 X10E9/L Normal 1.5-6.6 [facility] Comment on above: Performed By: #### C BCA, PINR, 08602-7, BMP, 3040-3, 88117-4, 5643-2, LIVR, 46064-1, 60325-2, THYR, 38118-5, 32599-7 #### [facility] ([id number]) [address] [place] [address], [place] [address] Basophils/100 WBC (Bld) 0.3 % Normal [facility] Comment on above: Performed By: #### C BCA, PINR, 23413-9, BMP, 3040-3, 76989-5, 5643-2, LIVR, 47975-9, 80204-6, THYR, 46270-3, 49161-8 #### [facility] ([id number]) [address] [place] [address], [place] [address] Eosinophils (Bld) [#/Vol] 0.0 10*3/uL Normal 0.0-0.4 [facility] Comment on above: Performed By: #### C BCA, PINR, 57519-1, BMP, 3040-3, 42783-6, 5643-2, LIVR, 45331-4, 67638-3, THYR, 22660-6, 23813-9 #### [facility] ([id number]) [address] [place] [address], [place] [address] Eosinophils/100 WBC (Bld) 0.1 % Normal [facility] Comment on above: Performed By: #### C BCA, PINR, 00023-9, BMP, 3040-3, 63426-0, 5643-2, LIVR, 36233-3, 11071-5, THYR, 89465-4, 15241-8 #### [facility] ([id number]) [address] [place] [address] [place] [address] Erythrocyte distribution width (RBC) [Ratio] 15.2 % High 11.5-15.0 [facility] Comment on above: Performed By: #### C BCA, PINR, 37740-6, BMP, 3040-3, 39669-8, 5643-2, LIVR, 43656-5, 98506-5, THYR, 33246-0, 54472-6 #### [facility] ([id number]) [address] [place] [address] [place] [address] Hematocrit (Bld) [Volume fraction] 40.7 % Normal 39-49 [facility] Comment on above: Performed By: #### C BCA, PINR, 14872-7, BMP, 3040-3, 79836-0, 5643-2, LIVR, 86994-2, 65494-3, THYR, 09551-7, 78239-9 #### [facility] ([id number]) [address] [place] [address] [place] [address] Hemoglobin (Bld) [Mass/Vol] 14.2 g/dL Normal 13.0-17.0 [facility] Comment on above: Performed By: #### C BCA, PINR, 35908-4, BMP, 3040-3, 96307-2, 5643-2, LIVR, 75074-0, 02858-8, THYR, 84025-6, 58695-2 #### [facility] ([id number]) [address] [place] [address] [place] [address] Lymphocytes (Bld) [#/Vol] 0.8 10*3/uL Low 1.0-3.5 [facility] Comment on above: Performed By: #### C BCA, PINR, 84283-8, BMP, 3040-3, 89431-4, 5643-2, LIVR, 55152-6, 59810-0, THYR, 71075-7, 83957-8 #### [facility] ([id number]) [address] [place] [address] 37660 Lymphocytes/100 WBC (Bld) 13.3 % Normal [facility] Comment on above: Performed By: #### C BCA, PINR, 29465-1, BMP, 3040-3, 20884-5, 5643-2, LIVR, 11250-9, 54109-2, THYR, 40229-4, 40450-8 #### [facility] ([id number]) [address] [place] [address] 44530 MCH (RBC) [Entitic mass] 29.2 pg Normal 27-34 [facility] Comment on above: Performed By: #### C BCA, PINR, 00785-9, BMP, 3040-3, 14337-8, 5643-2, LIVR, 31130-3, 49395-7, THYR, 33296-6, 89179-5 #### [facility] ([id number]) [address] [place] [address] [place] [address] MCHC (RBC) [Mass/Vol] 35.0 g/dL Normal 32-36 [facility] Comment on above: Performed By: #### C BCA, PINR, 06683-8, BMP, 3040-3, 34692-9, 5643-2, LIVR, 28937-9, 79317-4, THYR, 98360-0, 86669-5 #### [facility] ([id number]) [address] [place] [address] [place] [address] MCV (RBC) [Entitic vol] 84 fL Normal 80-100 [facility] Comment on above: Performed By: #### C BCA, PINR, 23748-7, BMP, 3040-3, 26485-4, 5643-2, LIVR, 12985-9, 29449-2, THYR, 95716-5, 57871-8 #### [facility] ([id number]) [address] [place] [address] 37774 Monocytes (Bld) [#/Vol] 0.8 10*3/uL Normal 0-0.9 [facility] Comment on above: Performed By: #### C BCA, PINR, 54287-1, BMP, 3040-3, 53521-7, 5643-2, LIVR, 13161-7, 42591-9, THYR, 49571-1, 74468-4 #### [facility] ([id number]) [address] [place] [address] 10442 Monocytes/100 WBC (Bld) 12.8 % Normal [facility] Comment on above: Performed By: #### C BCA, PINR, 47813-1, BMP, 3040-3, 43271-5, 5643-2, LIVR, 68336-3, 57391-6, THYR, 87442-7, 28921-6 #### [facility] ([id number]) [address] [place] [address] [place] [address] Neutrophils/100 WBC (Bld) 73.5 % Normal [facility] Comment on above: Performed By: #### C BCA, PINR, 56001-1, BMP, 3040-3, 57606-2, 5643-2, LIVR, 72012-0, 88613-7, THYR, 55914-1, 70616-7 #### [facility] ([id number]) [address] [place] [address] [place] [address] Platelet mean volume (Bld) [Entitic vol] 8.1 fL Normal 7-12 [facility] Comment on above: Performed By: #### C BCA, PINR, 99846-9, BMP, 3040-3, 45210-3, 5643-2, LIVR, 94741-9, 75660-6, THYR, 46331-3, 02221-5 #### [facility] ([id number]) [address] [place] [address] 98617 Platelets (Bld) [#/Vol] 226 10*3/uL Normal 150-450 [facility] Comment on above: Performed By: #### C BCA, PINR, 50616-0, BMP, 3040-3, 46281-3, 5643-2, LIVR, 69619-3, 01856-0, THYR, 09041-3, 63900-5 #### [facility] ([id number]) [address] [place] [address] [place] [address] RBC COUNT 4.87 X10E12/L Normal 4.10-5.70 [facility] Comment on above: Performed By: #### C BCA, PINR, 14063-8, BMP, 3040-3, 98874-0, 5643-2, LIVR, 44543-0, 21627-1, THYR, 93086-1, 42665-3 #### [facility] ([id number]) [address] [place] [address] [place] [address] WBC (Bld) [#/Vol] 6.0 10*3/uL Normal 4.0-11.0 [facility] Comment on above: Performed By: #### C BCA, PINR, 73566-0, BMP, 3040-3, 12495-3, 5643-2, LIVR, 97596-3, 85317-1, THYR, 79432-9, 53761-6 #### [facility] ([id number]) [address] [place] [address] [place] [address] COMPREHENSIVE METABOLIC PANE [facility] 06-27-2023 Albumin [Mass/Vol] 3.5 g/dL Normal 3.2-5.3 [facility] Comment on above: Performed By: #### C BCA, PINR, 71727-0, BMP, 3040-3, 52758-3, 5643-2, LIVR, 25421-1, 46243-2, THYR, 54397-2, 70576-2 #### [facility] ([id number]) [address] [place] [address] [place] [address] ALP [Catalytic activity/Vol] 43 U/L Normal 39-130 [facility] Comment on above: Performed By: #### C BCA, PINR, 12566-4, BMP, 3040-3, 48446-3, 5643-2, LIVR, 36098-3, 84542-3, THYR, 97107-2, 45832-4 #### [facility] ([id number]) [address] [place] [address] [place] [address] ALT [Catalytic activity/Vol] 40 U/L Normal 0-40 [facility] Comment on above: Performed By: #### C BCA, PINR, 17580-2, BMP, 3040-3, 87108-9, 5643-2, LIVR, 99418-0, 30390-9, THYR, 68964-8, 54486-8 #### [facility] ([id number]) [address] [place] [address] [place] [address] Anion gap [Moles/Vol] 8 mmol/L Normal 5-15 [facility] Comment on above: Performed By: #### C BCA, PINR, 58118-0, BMP, 3040-3, 94982-3, 5643-2, LIVR, 09068-3, 67682-8, THYR, 93207-2, 81195-7 #### [facility] ([id number]) [address] [place] [address], [place] [address] AST [Catalytic activity/Vol] 63 U/L High 0-41 [facility] Comment on above: Performed By: #### C BCA, PINR, 25969-1, BMP, 3040-3, 47300-2, 5643-2, LIVR, 12782-7, 09480-3, THYR, 51416-6, 64596-9 #### [facility] ([id number]) [address] [place] [address], [place] [address] Bilirubin [Mass/Vol] 0.9 mg/dL Normal 0.3-1.2 [facility] Comment on above: Performed By: #### C BCA, PINR, 12382-7, BMP, 3040-3, 69179-4, 5643-2, LIVR, 94078-6, 40901-9, THYR, 43295-2, 95840-3 #### [facility] ([id number]) [address] [place] [address], [place] [address] Calcium [Mass/Vol] 8.7 mg/dL Normal 8.5-10.5 [facility] Comment on above: Performed By: #### C BCA, PINR, 66441-6, BMP, 3040-3, 42368-6, 5643-2, LIVR, 74969-1, 26082-9, THYR, 23007-6, 57707-7 #### [facility] ([id number]) [address] [place] [address], [place] [address] Chloride [Moles/Vol] 106 mmol/L Normal 98-109 [facility] Comment on above: Performed By: #### C BCA, PINR, 22255-4, BMP, 3040-3, 39605-3, 5643-2, LIVR, 09788-9, 34849-3, THYR, 48191-2, 30796-4 #### [facility] ([id number]) [address] [place] [address], [place] [address] CO2 [Moles/Vol] 23 mmol/L Normal 22-32 [facility] Comment on above: Performed By: #### C BCA, PINR, 07951-9, BMP, 3040-3, 64999-9, 5643-2, LIVR, 03716-2, 71528-2, THYR, 10013-9, 06461-4 #### [facility] ([id number]) [address] [place] [address] 07393 Creatinine [Mass/Vol] 1.22 mg/dL High 0.70-1.20 [facility] Comment on above: Result Comment: METH OD TRACEABLE TO IDMS STANDARD Performed By: #### C BCA, PINR, 05856-8, BMP, 3040-3, 83229-1, 5643-2, LIVR, 80786-4, 43189-5, THYR, 46077-2, 57542-8 #### [facility] ([id number]) [address] [place] [address] 78063 GFR/1.73 sq M.predicted among non-blacks MDRD (S/P/Bld) [Vol rate/Area] 62 mL/min/{1.73_m2} Normal >59 [facility] Comment on above: Result Comment: Reported eGFR is based on the CKD-EPI 2020 equation that does not use a race coefficient. Performed By: #### C BCA, PINR, 93945-3, BMP, 3040-3, 38643-0, 5643-2, LIVR, 72978-4, 09078-7, THYR, 77393-6, 34996-6 #### [facility] ([id number]) [address] [place] [address] 89941 Glucose [Mass/Vol] 153 mg/dL High 65-99 [facility] Comment on above: Performed By: #### C BCA, PINR, 41909-7, BMP, 3040-3, 19030-5, 5643-2, LIVR, 79956-6, 54864-9, THYR, 04698-1, 58710-2 #### [facility] ([id number]) [address] [place] [address]303 Potassium [Moles/Vol] 3.8 mmol/L Normal 3.5-5.0 [facility] Comment on above: Performed By: #### C BCA, PINR, 86759-8, BMP, 3040-3, 00951-6, 5643-2, LIVR, 40539-6, 12762-5, THYR, 55241-1, 00153-1 #### [facility] ([id number]) [address] [place] [address] [place] [address] Protein [Mass/Vol] 6.9 g/dL Normal 6.0-8.0 [facility] Comment on above: Performed By: #### C BCA, PINR, 20329-3, BMP, 3040-3, 23301-8, 5643-2, LIVR, 62009-6, 57923-7, THYR, 97911-4, 39848-1 #### [facility] ([id number]) [address] [place] [address] [place] [address] Sodium [Moles/Vol] 137 mmol/L Normal 134-146 [facility] Comment on above: Performed By: #### C BCA, PINR, 74742-6, BMP, 3040-3, 75822-0, 5643-2, LIVR, 62138-2, 70957-1, THYR, 08099-7, 37557-5 #### [facility] ([id number]) [address] [place] [address] [place] [address] Urea nitrogen [Mass/Vol] 30 mg/dL High 5-27 [facility] Comment on above: Performed By: #### C BCA, PINR, 59524-0, BMP, 3040-3, 89123-0, 5643-2, LIVR, 92802-2, 77413-6, THYR, 30130-2, 43221-6 #### [facility] ([id number]) [address] [place] [address] [place] [address] Glucose Glucometer (BldC) [M ass/Vol]on 06-27-2023 Glucose [Mass/Vol] 149 mg/dL High 65-99 [facility] Glucose [Mass/Vol] 138 mg/dL High 65-99 [facility] Glucose [Mass/Vol] 218 mg/dL High 65-99 [facility] Glucose [Mass/Vol] 144 mg/dL High 65-99 [facility] Glucose [Mass/Vol] 176 mg/dL High 65-99 [facility] HGB A1C (GLYCO-HGB)on 2022 Glucose [Mass/Vol] 160 mg/dL Normal [facility] Comment on above: Performed By: #### C BCA, PINR, 53752-0, BMP, 3040-3, 72714-7, 5643-2, LIVR, 84524-8, 30204-5, THYR, 21785-7, 57339-8 #### [facility] ([id number]) [address] [place] [address] 41856 HbA1c (Bld) [Mass fraction] 7.2 % High 4.4-5.6 [facility] Comment on above: Result Comment: NOTE ADA Guidelines Result HgbA1c Normal : less than 5.7 % Prediabetes : 5.7 % to 6.4 % Diabetes : > 6.4 % Use with caution in patients with abnormal hemoglobin variants as the half-life of red blood cells and in vivo glycation rates are affected. Performed By: #### C BCA, PINR, 46267-9, BMP, 3040-3, 79287-9, 5643-2, LIVR, 44287-2, 09954-3, THYR, 18065-9, 83734-7 #### [facility] ([id number]) [address] [place] [address] MAGNESIUMon 06-27-2023 Magnesium [Mass/Vol] 2.2 mg/dL Normal 1.8-2.6 [facility] Comment on above: Performed By: #### C BCA, PINR, 76479-8, BMP, 3040-3, 92480-0, 5643-2, LIVR, 96086-4, 24036-9, THYR, 98537-0, 14974-1 #### [facility] ([id number]) [address] [place] [address]8852 Prostate specific Ag [Mass/V ol]on 06-27-2023 PSA SCREEN 1.78 ng/mL Normal 0.00-4.00 [facility] Comment on above: Result Comment: The method used for this test is [employer] DXI chemiluminescent immunoassay. Values obtained by different assay methods cannot be used interchangeably. Performed By: #### C BCA, PINR, 45655-1, BMP, 3040-3, 87374-7, 5643-2, LIVR, 15750-9, 27485-1, THYR, 75667-4, 64343-9 #### [facility] ([id number]) [address] [place] [address] 32718 BASIC METABOLIC PANLon 06-26 Anion gap [Moles/Vol] 6 mmol/L Normal 5-15 [facility] Comment on above: Performed By: #### C BCA, PINR, 60108-0, BMP, 3040-3, 13370-5, 5643-2, LIVR, 22743-0, 45840-1, THYR, 40634-1, 27855-3 #### [facility] ([id number]) [address] [place] [address] 21758 Calcium [Mass/Vol] 8.6 mg/dL Normal 8.5-10.5 [facility] Comment on above: Performed By: #### C BCA, PINR, 33797-3, BMP, 3040-3, 48482-3, 5643-2, LIVR, 90096-1, 72096-8, THYR, 80526-2, 74372-8 #### [facility] ([id number]) [address] [place] [address] Chloride [Moles/Vol] 104 mmol/L Normal 98-109 [facility] Comment on above: Performed By: #### C BCA, PINR, 03705-4, BMP, 3040-3, 13469-1, 5643-2, LIVR, 28985-8, 47360-7, THYR, 70677-4, 58785-6 #### [facility] ([id number]) [address] [place] [address] 57760 CO2 [Moles/Vol] 25 mmol/L Normal 22-32 [facility] Comment on above: Performed By: #### C BCA, PINR, 19374-6, BMP, 3040-3, 74524-8, 5643-2, LIVR, 81869-8, 85873-3, THYR, 89074-9, 90569-7 #### [facility] ([id number]) [address] [place] [address]123 Creatinine [Mass/Vol] 1.07 mg/dL Normal 0.70-1.20 [facility] Comment on above: Result Comment: METH OD TRACEABLE TO IDMS STANDARD Performed By: #### C BCA, PINR, 12050-2, BMP, 3040-3, 49839-6, 5643-2, LIVR, 16788-9, 54945-0, THYR, 20604-4, 70323-5 #### [facility] ([id number]) [address] [place] [address] [place] [address] GFR/1.73 sq M.predicted among non-blacks MDRD (S/P/Bld) [Vol rate/Area] 73 mL/min/{1.73_m2} Normal >59 [facility] Comment on above: Result Comment: Reported eGFR is based on the CKD-EPI 2020 equation that does not use a race coefficient. Performed By: #### C BCA, PINR, 58151-6, BMP, 3040-3, 71351-8, 5643-2, LIVR, 11439-6, 09625-1, THYR, 64175-5, 32975-2 #### [facility] ([id number]) [address] [place] [address] [place] [address] Glucose [Mass/Vol] 129 mg/dL High 65-99 [facility] Comment on above: Performed By: #### C BCA, PINR, 29616-6, BMP, 3040-3, 46439-2, 5643-2, LIVR, 34204-9, 31669-4, THYR, 76974-3, 16163-0 #### [facility] ([id number]) [address] [place] [address] 75976 Potassium [Moles/Vol] 3.8 mmol/L Normal 3.5-5.0 [facility] Comment on above: Performed By: #### C BCA, PINR, 04232-4, BMP, 3040-3, 95636-3, 5643-2, LIVR, 96059-6, 82557-2, THYR, 58224-9, 19022-0 #### [facility] ([id number]) [address] [place] [address] 30686 Sodium [Moles/Vol] 135 mmol/L Normal 134-146 [facility] Comment on above: Performed By: #### C BCA, PINR, 06962-9, BMP, 3040-3, 18508-9, 5643-2, LIVR, 25132-3, 37674-8, THYR, 10377-2, 05484-3 #### [facility] ([id number]) [address] [place] [address] [place] [address] Urea nitrogen [Mass/Vol] 23 mg/dL Normal 5-27 [facility] Comment on above: Performed By: #### C BCA, PINR, 62067-6, BMP, 3040-3, 69698-7, 5643-2, LIVR, 95855-2, 60407-5, THYR, 33163-7, 34162-6 #### [facility] ([id number]) [address] [place] [address] CBC AND AUTO DIFFon 06-26-20 23 ABSOLUTE BASOPHIL 0.0 X10E9/L Normal 0.0-0.2 [facility] Comment on above: Performed By: #### C BCA, PINR, 03357-2, BMP, 3040-3, 77359-6, 5643-2, LIVR, 80290-3, 66179-7, THYR, 41396-2, 76767-4 #### [facility] ([id number]) [address] [place] [address]3724 ABSOLUTE NEUTROPHIL 5.3 X10E9/L Normal 1.5-6.6 [facility] Comment on above: Performed By: #### C BCA, PINR, 52089-2, BMP, 3040-3, 07910-9, 5643-2, LIVR, 21128-0, 99688-2, THYR, 88716-9, 88829-1 #### [facility] ([id number]) [address] [place] [address] [place] [address] Basophils/100 WBC (Bld) 0.5 % Normal [facility] Comment on above: Performed By: #### C BCA, PINR, 83602-1, BMP, 3040-3, 12446-8, 5643-2, LIVR, 42112-1, 51513-2, THYR, 65022-2, 91990-7 #### [facility] ([id number]) [address] [place] [address] 50001 Eosinophils (Bld) [#/Vol] 0.0 10*3/uL Normal 0.0-0.4 [facility] Comment on above: Performed By: #### C BCA, PINR, 72450-1, BMP, 3040-3, 40591-1, 5643-2, LIVR, 46688-3, 07144-6, THYR, 71821-8, 92905-3 #### [facility] ([id number]) [address] [place] [address] 75149 Eosinophils/100 WBC (Bld) 0.1 % Normal [facility] Comment on above: Performed By: #### C BCA, PINR, 96071-9, BMP, 3040-3, 52491-4, 5643-2, LIVR, 51062-4, 11425-7, THYR, 12831-5, 91357-6 #### [facility] ([id number]) [address] [place] [address] 75591 Erythrocyte distribution width (RBC) [Ratio] 15.3 % High 11.5-15.0 [facility] Comment on above: Performed By: #### C BCA, PINR, 60520-2, BMP, 3040-3, 05525-0, 5643-2, LIVR, 94381-4, 52744-6, THYR, 05010-4, 33098-6 #### [facility] ([id number]) [address] [place] [address]2618 Hematocrit (Bld) [Volume fraction] 37.7 % Low 39-49 [facility] Comment on above: Performed By: #### C BCA, PINR, 60104-0, BMP, 3040-3, 41168-8, 5643-2, LIVR, 21342-5, 41961-8, THYR, 46482-1, 74842-7 #### [facility] ([id number]) [address] [place] [address] 19372 Hemoglobin (Bld) [Mass/Vol] 13.1 g/dL Normal 13.0-17.0 [facility] Comment on above: Performed By: #### C BCA, PINR, 18617-1, BMP, 3040-3, 21233-4, 5643-2, LIVR, 19792-4, 98117-0, THYR, 92490-9, 70363-4 #### [facility] ([id number]) [address] [place] [address] 65698 Lymphocytes (Bld) [#/Vol] 0.4 10*3/uL Low 1.0-3.5 [facility] Comment on above: Performed By: #### C BCA, PINR, 07465-6, BMP, 3040-3, 71321-2, 5643-2, LIVR, 14152-5, 97683-9, THYR, 57985-4, 68253-4 #### [facility] ([id number]) [address] [place] [address] 60373 Lymphocytes/100 WBC (Bld) 6.7 % Normal [facility] Comment on above: Performed By: #### C BCA, PINR, 61130-3, BMP, 3040-3, 20007-3, 5643-2, LIVR, 48995-5, 44493-5, THYR, 51991-5, 89369-1 #### [facility] ([id number]) [address] [place] [address] 25617 MCH (RBC) [Entitic mass] 29.1 pg Normal 27-34 [facility] Comment on above: Performed By: #### C BCA, PINR, 69832-7, BMP, 3040-3, 75455-6, 5643-2, LIVR, 06173-6, 86322-7, THYR, 87984-2, 43744-2 #### [facility] ([id number]) [address] [place] [address] 08107 MCHC (RBC) [Mass/Vol] 34.8 g/dL Normal 32-36 [facility] Comment on above: Performed By: #### C BCA, PINR, 62128-3, BMP, 3040-3, 28857-6, 5643-2, LIVR, 13765-3, 37150-8, THYR, 38351-6, 30525-2 #### [facility] ([id number]) [address] [place] [address] 89738 MCV (RBC) [Entitic vol] 84 fL Normal 80-100 [facility] Comment on above: Performed By: #### C BCA, PINR, 43244-6, BMP, 3040-3, 53499-8, 5643-2, LIVR, 05712-0, 04845-5, THYR, 73557-4, 35433-7 #### [facility] ([id number]) [address] [place] [address] 54763 Monocytes (Bld) [#/Vol] 0.7 10*3/uL Normal 0-0.9 [facility] Comment on above: Performed By: #### C BCA, PINR, 45259-4, BMP, 3040-3, 87020-8, 5643-2, LIVR, 42299-6, 67611-8, THYR, 82457-2, 45358-8 #### [facility] ([id number]) [address] [place] [address] 37665 Monocytes/100 WBC (Bld) 10.7 % Normal [facility] Comment on above: Performed By: #### C BCA, PINR, 49728-2, BMP, 3040-3, 98476-0, 5643-2, LIVR, 38518-8, 28446-4, THYR, 24958-4, 92980-2 #### [facility] ([id number]) [address] [place] [address] 62792 Neutrophils/100 WBC (Bld) 82.0 % Normal [facility] Comment on above: Performed By: #### C BCA, PINR, 37229-0, BMP, 3040-3, 11686-6, 5643-2, LIVR, 65001-9, 11897-0, THYR, 74576-6, 46837-3 #### [facility] ([id number]) [address] [place] [address] 14548 Platelet mean volume (Bld) [Entitic vol] 7.5 fL Normal 7-12 [facility] Comment on above: Performed By: #### C BCA, PINR, 50392-9, BMP, 3040-3, 34063-3, 5643-2, LIVR, 37280-6, 08227-9, THYR, 07816-4, 73887-2 #### [facility] ([id number]) [address] [place] [address] 04075 Platelets (Bld) [#/Vol] 215 10*3/uL Normal 150-450 [facility] Comment on above: Performed By: #### C BCA, PINR, 14150-1, BMP, 3040-3, 57740-6, 5643-2, LIVR, 46448-0, 25194-7, THYR, 09316-0, 67836-8 #### [facility] ([id number]) [address] [place] [address] 02782 RBC COUNT 4.51 X10E12/L Normal 4.10-5.70 [facility] Comment on above: Performed By: #### C BCA, PINR, 16862-9, BMP, 3040-3, 50954-5, 5643-2, LIVR, 45270-6, 47051-5, THYR, 29329-4, 42108-1 #### [facility] ([id number]) [address] [place] [address] [place] [address] WBC (Bld) [#/Vol] 6.4 10*3/uL Normal 4.0-11.0 [facility] Comment on above: Performed By: #### C BCA, PINR, 11530-0, BMP, 3040-3, 40907-4, 5643-2, LIVR, 09994-1, 06899-2, THYR, 81986-0, 89076-3 #### [facility] ([id number]) [address] [facility], [place] [address] CT BRAIN WO CONTon CT BRAIN WO CONT CT BRAIN WO CONT CLINICAL INFORMATION: Transient alteration of awareness, weakness. TECHNIQUE: CT head without contrast. All CT scans at this facility use dose modulation, iterative reconstruction, and/or weight based dosing when appropriate to reduce radiation dose to as low as reasonably achievable. COMPARISON: MR brain 11/10/2021, CTA head 12/15/2021. FINDINGS: Examination compromised by by extensive streak artifact. The osseous structures of the calvarium and skull base are intact. No acute intracranial hemorrhage or mass effect. Mild periventricular hypodensities, most, seen in the setting of chronic microvascular ischemic change. Ventricular size is within normal limits. There are no extra-axial fluid collections. Bilateral intraocular lens replacements. Visible paranasal sinuses clear. IMPRESSION: * No acute intracranial findings, by CT. Approved by Resident Dk Larose DO on 06/26/2023 2:11 AM5 I, Les Todd MD have personally reviewed the image(s) and agree with and/or edited the report Finalized by Les Todd MD on 06/26/2023 2:19 AM Normal [facility] ETHANOLon 06-26-2023 Ethanol [Mass/Vol] mg/dL Normal 0.00-0.08 [facility] Comment on above: Result Comment: This report is intended for use in clinical monitoring or management of patients. Performed By: #### C BCA, PINR, 51833-2, BMP, 3040-3, 71116-5, 5643-2, LIVR, 40846-6, 31776-8, THYR, 06684-3, 76946-4 #### [facility] ([id number]) [address] [place] [address], [place] [address] Fibrin D-dimer DDU (PPP) [Ma ss/Vol]on 06-26-2023 D DIMER 220 ng/mL DDU Normal <255 [facility] Comment on above: Result Comment: Results <255 ng/mL DDU: The presence of a VTE can safely be excluded with a negative D-Dimer result and Wells score. A negative result doesn't exclude the possibility of DIC. The test be repeated along with other diagnostic tests if the patient's symptoms persist or worsen. [email or web address] Performed By: #### C BCA, PINR, 75830-3, BMP, 3040-3, 09915-2, 5643-2, LIVR, 52195-9, 70242-8, THYR, 63739-8, 76813-8 #### [facility] ([id number]) [address] [place] [address] 28838 Glucose Glucometer (BldC) [M ass/Vol]on 06-26-2023 Glucose [Mass/Vol] 214 mg/dL High 65-99 [facility] Glucose [Mass/Vol] 159 mg/dL High 65-99 [facility] Glucose [Mass/Vol] 114 mg/dL High 65-99 [facility] LIPASEon 06-26-2023 Lipase [Catalytic activity/Vol] 27 U/L Normal 17-40 [facility] Comment on above: Performed By: #### C BCA, PINR, 25799-8, BMP, 3040-3, 50486-9, 5643-2, LIVR, 26758-8, 30214-4, THYR, 53053-8, 22847-6 #### [facility] ([id number]) [address] [place] [address] 59100 LIVER PANELon 06-26-2023 Albumin [Mass/Vol] 4.0 g/dL Normal 3.2-5.3 [facility] Comment on above: Performed By: #### C BCA, PINR, 65256-9, BMP, 3040-3, 83574-3, 5643-2, LIVR, 02391-8, 31462-2, THYR, 42281-8, 28202-4 #### [facility] ([id number]) [address] [place] [address] 69835 ALP [Catalytic activity/Vol] 46 U/L Normal 39-130 [facility] Comment on above: Performed By: #### C BCA, PINR, 34452-5, BMP, 3040-3, 09253-2, 5643-2, LIVR, 57068-0, 46600-9, THYR, 44033-4, 90176-1 #### [facility] ([id number]) [address] [place] [address] 55524 ALT [Catalytic activity/Vol] 30 U/L Normal 0-40 [facility] Comment on above: Performed By: #### C BCA, PINR, 59551-1, BMP, 3040-3, 16757-0, 5643-2, LIVR, 50478-7, 92999-5, THYR, 05975-8, 59960-9 #### [facility] ([id number]) [address] [place] [address] 18515 AST [Catalytic activity/Vol] 58 U/L High 0-41 [facility] Comment on above: Performed By: #### C BCA, PINR, 38364-7, BMP, 3040-3, 88011-2, 5643-2, LIVR, 70326-1, 40964-1, THYR, 76880-8, 85377-8 #### [facility] ([id number]) [address] [place] [address] [place] [address] Bilirubin [Mass/Vol] 1.2 mg/dL Normal 0.3-1.2 [facility] Comment on above: Performed By: #### C BCA, PINR, 37704-2, BMP, 3040-3, 12004-5, 5643-2, LIVR, 74713-1, 71364-1, THYR, 65207-7, 03930-3 #### [facility] ([id number]) [address] [place] [address] 95105 Bilirubin.direct [Mass/Vol] 0.2 mg/dL Normal 0.0-0.4 [facility] Comment on above: Performed By: #### C BCA, PINR, 52749-3, BMP, 3040-3, 51404-4, 5643-2, LIVR, 47575-5, 55123-6, THYR, 84796-6, 91487-2 #### [facility] ([id number]) [address] [place] [address] 61176 Protein [Mass/Vol] 7.0 g/dL Normal 6.0-8.0 [facility] Comment on above: Performed By: #### C BCA, PINR, 88337-0, BMP, 3040-3, 66697-9, 5643-2, LIVR, 71016-8, 84034-6, THYR, 32991-8, 51211-0 #### [facility] ([id number]) [address] [place] [address] 83092 Lactate (P zane) [Moles/Vol]o n 06-26-2023 LACTATE W/REFLEX 1.3 mmol/L Normal 0.4-2.0 [facility] Comment on above: Result Comment: Result did not trigger repeat Lactate, re-order if needed. Performed By: #### C BCA, PINR, 43160-4, BMP, 3040-3, 81804-9, 5643-2, LIVR, 74687-6, 24441-0, THYR, 30794-5, 43281-8 #### [facility] ([id number]) [address] [place] [address] 55831 MAGNESIUMon 06-26-2023 Magnesium [Mass/Vol] 1.7 mg/dL Low 1.8-2.6 [facility] Comment on above: Performed By: #### C BCA, PINR, 19773-9, BMP, 3040-3, 06618-9, 5643-2, LIVR, 99640-8, 41590-6, THYR, 89337-1, 65289-5 #### [facility] ([id number]) [address] [place] [address] 78703 Natriuretic peptide B [Mass/ Vol]on 06-26-2023 Natriuretic peptide B (Bld) [Mass/Vol] 142 pg/mL High <100.0 [facility] Comment on above: Performed By: #### C BCA, PINR, 79459-9, BMP, 3040-3, 07876-4, 5643-2, LIVR, 54308-7, 29196-5, THYR, 29818-6, 81405-6 #### [facility] ([id number]) [address] [place] [address] 29029 POTASSIUMon 06-26-2023 Potassium [Moles/Vol] 3.7 mmol/L Normal 3.5-5.0 [facility] Comment on above: Performed By: #### C BCA, PINR, 58608-4, BMP, 3040-3, 07803-4, 5643-2, LIVR, 72804-6, 77766-2, THYR, 88643-7, 74682-4 #### [facility] ([id number]) [address] [place] [address] 72769 PROTIME AND INRon 06-26-2023 INR Coag (PPP) [Relative time] 1.2 {INR} High 0.8-1.1 [facility] Comment on above: Performed By: #### C BCA, PINR, 23835-5, BMP, 3040-3, 04908-1, 5643-2, LIVR, 80850-9, 51594-1, THYR, 91740-9, 63808-8 #### [facility] ([id number]) [address] [place] [address] 80676 PT Coag (PPP) [Time] 14.0 s High 9.8-13.2 [facility] Comment on above: Result Comment: NEW REFERENCE RANGE Performed By: #### C BCA, PINR, 76354-2, BMP, 3040-3, 14296-2, 5643-2, LIVR, 95041-2, 21185-5, THYR, 59664-9, 67222-4 #### [facility] ([id number]) [address] [place] [address] Procalcitonin IA [Mass/Vol]o n 06-26-2023 PROCALCITONIN 0.07 ng/mL High <0.05 [facility] Comment on above: Result Comment: NOTE <0.50 ng/mL - Low risk of severe sepsis and/or septic shock. <2.00 ng/mL - Recommend retesting within 6-24 hours. >2.00 ng/mL - High risk of sepsis and/or septic shock. Performed By: #### C BCA, PINR, 54977-6, BMP, 3040-3, 35121-3, 5643-2, LIVR, 09239-4, 17120-3, THYR, 54497-6, 84670-1 #### [facility] ([id number]) [address] [place] [address] 86652 SARS/FLU A+B/RSV by NAAT/Mol ecularon 06-26-2023 SARS/FLU A+B/RSV by NAAT/Molecular FLU A PCR Negative (qualifier value) FLU B PCR Negative (qualifier value) RSV by PCR Negative (qualifier value) SARS CoV 2 Detected (qualifier value) NOTE The Xpert Xpress SARS-CoV-2/Flu/RSV Plus test is a rapid, multiplexed real-time RT-PCR test intended for the simultaneous qualitative detection and differentiation of SARS-CoV-2, influenza A, influenza B and respiratory syncytial virus (RSV) viral RNA from individuals suspected of respiratory viral infection consistent with COVID-19 by their healthcare provider. This test has not been validated in asymptomatic patients. The Xpert Xpress SARS-CoV-2 test is intended for use by qualified and trained operators who are performing tests using either [employer] or [employer] systems and is limited to laboratories that meet the CLIA requirements to perform high and moderate complexity tests. The Xpert Xpress SARS-CoV-2/Flu/RSV Plus is only for use under the Food and Drug Administration's Emergency Use Authorization. Results are for the simultaneous detection and differentiation of SARS-CoV-2, influenza A, influenza B and RSV nucleic acids in clinical specimens. SARS-CoV-2, influenza A, influenza B and RSV RNA identified by this test are generally detectable in upper respiratory samples during the acute phase of infection. Positive results are indicative of the presence of the identified virus, but do not rule out bacterial infection or co-infection with other pathogens not detected by this test. Clinical correlation with patient history and other diagnostic information is necessary to determine patient infection status. The agent detected may not be the definite cause of disease. Negative results do not preclude SARS-CoV-2, influenza A, influenza B and RSV infection and should not be used as the sole basis for treatment or other patient management decisions. Negative results must be combined with clinical observations, patient history and epidemiological information. An Invalid result may occur with specimen-associated inhibition unable to be resolved with specimen repeat. Fact Sheet for Healthcare Providers: https://www.fda.gov/m edia/515939/download Fact Sheet for Patients: https://www.fda.gov/m edia/477671/download Normal [facility] Comment on above: Performed By: #### C BCA, PINR, 59359-4, BMP, 3040-3, 67597-7, 5643-2, LIVR, 71256-1, 55290-9, THYR, 73539-1, 09381-5 #### [facility] ([id number]) [address] [place] [address] 26255 THYROID PROFILEon 06-26-2023 Free T4 [Mass/Vol] 0.95 ng/dL Normal 0.61-1.60 [facility] Comment on above: Performed By: #### C BCA, PINR, 07032-1, BMP, 3040-3, 95432-0, 5643-2, LIVR, 31318-4, 71477-7, THYR, 87691-4, 42893-6 #### [facility] ([id number]) [address] [place] [address] TSH 1.81 uIU/mL Normal 0.49-4.67 [facility] Comment on above: Performed By: #### C BCA, PINR, 66284-5, BMP, 3040-3, 12844-8, 5643-2, LIVR, 49777-7, 84398-4, THYR, 13859-4, 07945-9 #### [facility] ([id number]) [address] [place] [address] 68326 TROPONIN Ion 06-26-2023 Troponin I.cardiac [Mass/Vol] 0.03 ng/mL Normal 0.00-0.04 [facility] Comment on above: Performed By: #### C BCA, PINR, 85787-5, BMP, 3040-3, 99832-9, 5643-2, LIVR, 54749-6, 51852-7, THYR, 05530-4, 23908-0 #### [facility] ([id number]) [address] [place] [address] 32158 URINE CULTUREon 06-26-2023 Bacteria identified Cx Nom (U) CULTURE RESULTS 10-50,000 ORGANISMS/mL NORMAL UROGENITAL POLO Normal [facility] Comment on above: Performed By: #### C BCA, PINR, 53635-6, BMP, 3040-3, 00549-2, 5643-2, LIVR, 59998-6, 18060-0, THYR, 02807-6, 45732-9 #### [facility] ([id number]) [address] [place] [address] 56232 URN MACROSCOPIC NURon 2022 BILIRUBIN TORRES Small Abnormal NEG [facility] Comment on above: Performed By: #### C BCA, PINR, 72484-8, BMP, 3040-3, 74037-6, 5643-2, LIVR, 65083-3, 71766-7, THYR, 35218-5, 25437-6 #### [facility] ([id number]) [address] [place] [address] [place] [address] BLOOD/HGB TORRES Large Abnormal NEG [facility] Comment on above: Performed By: #### C BCA, PINR, 38733-3, BMP, 3040-3, 11289-8, 5643-2, LIVR, 00849-2, 29733-4, THYR, 09594-0, 67516-4 #### [facility] ([id number]) [address] [place] [address] 19950 GLUCOSE TORRES 100 mg/dL Abnormal NEG [facility] Comment on above: Performed By: #### C BCA, PINR, 45917-4, BMP, 3040-3, 96214-0, 5643-2, LIVR, 45901-5, 59073-2, THYR, 59123-2, 96232-8 #### [facility] ([id number]) [address] [place] [address] [place] [address] KETONES TORRES 15 mg/dL Abnormal NEG [facility] Comment on above: Performed By: #### C BCA, PINR, 37213-5, BMP, 3040-3, 61613-5, 5643-2, LIVR, 28928-1, 26559-1, THYR, 24042-5, 20393-1 #### [facility] ([id number]) [address] [place] [address] [place] [address] LEUKOCYTE ESTERASE TORRES Negative Normal NEG [facility] Comment on above: Performed By: #### C BCA, PINR, 06741-7, BMP, 3040-3, 47627-4, 5643-2, LIVR, 06263-1, 33494-9, THYR, 45054-3, 29792-0 #### [facility] ([id number]) [address] [place] [address] 62709 NITRITE TORRES Negative Normal NEG [facility] Comment on above: Performed By: #### C BCA, PINR, 33590-0, BMP, 3040-3, 55846-6, 5643-2, LIVR, 17917-8, 33380-5, THYR, 37805-8, 85786-2 #### [facility] ([id number]) [address] [place] [address] 15119 PH TORRES 5.5 Normal 5.0-8.5 [facility] Comment on above: Performed By: #### C BCA, PINR, 81112-4, BMP, 3040-3, 22310-5, 5643-2, LIVR, 09017-8, 57785-5, THYR, 93712-5, 69411-8 #### [facility] ([id number]) [address] [place] [address] [place] [address] PROTEIN TORRES 100 mg/dL Abnormal NEG [facility] Comment on above: Performed By: #### C BCA, PINR, 16256-5, BMP, 3040-3, 56066-1, 5643-2, LIVR, 07373-6, 62356-2, THYR, 35429-0, 56755-3 #### [facility] ([id number]) [address] [place] [address] [place] [address] SPECIFIC GRAVITY TORRES >=1.030 Normal 1.003-1.035 [facility] Comment on above: Performed By: #### C BCA, PINR, 38720-3, BMP, 3040-3, 48232-4, 5643-2, LIVR, 30645-8, 54759-2, THYR, 37460-1, 20776-2 #### [facility] ([id number]) [address] [place] [address] [place] [address] UROBILINOGEN TORRES 0.2 eu/dL Normal <1.1 [facility] Comment on above: Performed By: #### C BCA, PINR, 53608-2, BMP, 3040-3, 28238-8, 5643-2, LIVR, 53118-4, 96332-5, THYR, 99029-3, 36602-3 #### [facility] ([id number]) [address] [place] [address] XR CHEST 2 VWSon 06-26-2023 XR CHEST 2 VWS XR CHEST 2 VWS History: Generalized weakness Technique: Frontal and lateral views the chest were obtained. Comparison: 05/04/2023 Findings: There is pulmonary vascular congestion is increased in severity since the prior study. Lung tompkins are otherwise clear. Heart size at the upper limits normal. No pleural effusions are identified. Impression: Pulmonary vascular congestion, increased in severity since the previous examination dated 05/04/2023. Finalized by Les Todd MD on 06/26/2023 2:13 AM Normal [facility] aPTT Coag (PPP) [Time]on aPTT Coag (Bld) [Time] 36 s Normal 26-37 [facility] Comment on above: Result Comment: NEW REFERENCE RANGE Performed By: #### C BCA, PINR, 56633-7, BMP, 3040-3, 47264-6, 5643-2, LIVR, 07718-5, 90096-7, THYR, 36678-0, 86517-6 #### [facility] ([id number]) [address] [place] [address] lamoTRIgine [Mass/Vol]on LAMOTRIGINE <0.5 Low 1.0-13.0 [facility] Comment on above: Result Comment: NOTE This test was developed and its performance characteristics determined by [facility] Eliot JSarah [facility] [place] ([facility] It has not been cleared or approved by the FDA. -[facility] is regulated under CLIA as qualified to perform high-complexity testing. This test is used for clinical purposes. It should not be regarded as investigational or for research. Test Performed By: [facility] [address] [place] [address] Trial Mgr: JosephAnthony Brandon III #[id number] Performed By: #### C BCA, PINR, 57575-8, BMP, 3040-3, 85222-2, 5643-2, LIVR, 91502-9, 49466-7, THYR, 27679-3, 27656-9 #### [facility] ([id number]) [address] [place] [address], [place] [address] A1C HEMOGLOBINon 05-24-2023 HbA1c (Bld) [Mass fraction] 9.1 % [facility] Other Glucose - FINGER [facility]on Glucose [Mass/Vol] 238 mg/dL [facility] Other HbA1c (Bld) [Mass fraction]o n 05-24-[address] A[address]C [address] [employer] Other A1C HEMOGLOBINon 02-08-2023 HbA1c (Bld) [Mass fraction] 6.9 % [facility] Other Glucose - FINGER STICKon Glucose [Mass/Vol] 183 mg/dL [facility] Other HbA1c (Bld) [Mass fraction]o n 02-08-2023 A1C [employer]EMOGLOB[employer] Other A1C HEMOGLOBINon 10-21-2022 HbA1c (Bld) [Mass fraction] 6.5 % [facility] Other Glucose - FINGER STICKon Glucose [Mass/Vol] 122 mg/dL [facility] Other HbA1c (Bld) [Mass fraction]o n 10-21-2022 A1C HEMOGLOBIN [employer] Other CEA BLDon 07-22-2022 Carcinoembryonic Ag [Mass/Vol] 1.4 ng/mL <=2.9 ng/mL [facility] CBC W Auto Differential pane l (Bld)on 07-21-2022 Basophils (Bld) [#/Vol] 0.04 10*3/uL <0.11 k/uL [facility] Basophils/100 WBC (Bld) 0.4 % C [facility] Differential cell count method Nom (Bld) Auto [facility] Eosinophils (Bld) [#/Vol] 0.27 10*3/uL <0.46 k/uL [facility] Eosinophils/100 WBC (Bld) 3.0 % [facility] Erythrocyte distribution width (RBC) [Ratio] 13.5 % 11.5 - 15.0 % [facility] Hematocrit (Bld) [Volume fraction] 41.5 % 39.0 - 51.0 % [facility] Hemoglobin (Bld) [Mass/Vol] 13.7 g/dL 13.0 - 17.0 g/dL [facility] Immature granulocytes (Bld) [#/Vol] <0.10 k/uL [facility] Immature granulocytes/100 WBC (Bld) 0.2 % [facility] Lymphocytes (Bld) [#/Vol] 1.50 10*3/uL 1.00 - 4.00 k/uL [facility] Lymphocytes/100 WBC (Bld) 16.6 % [facility] MCH (RBC) [Entitic mass] 28.4 pg 26.0 - 34.0 pg [facility] MCHC (RBC) [Mass/Vol] 33.0 g/dL 30.5 - 36.0 g/dL [facility] MCV (RBC) [Entitic vol] 85.9 fL 80.0 - 100.0 fL [facility] Monocytes (Bld) [#/Vol] 0.53 10*3/uL <0.87 k/uL [facility] Monocytes/100 WBC (Bld) 5.9 % [facility] Neutrophils (Bld) [#/Vol] 6.67 10*3/uL 1.45 - 7.50 k/uL [facility] Neutrophils/100 WBC (Bld) 73.9 % [facility] Nucleated RBC (Bld) [#/Vol] <0.01 k/uL [facility] Nucleated RBC/100 WBC (Bld) [Ratio] 0.0 /100 WBC [facility] Platelet mean volume (Bld) [Entitic vol] 10.1 fL 9.0 - 12.7 fL [facility] Platelets (Bld) [#/Vol] 240 10*3/uL 150 - 400 k/uL [facility] RBC (Bld) [#/Vol] 4.83 10*6/uL 4.20 - 6.0 0 m/uL [facility] WBC (Bld) [#/Vol] 9.03 10*3/uL 3.70 - 11.00 k/uL [facility] Comprehensive metabolic 2000 panelon 07-21-2022 Albumin [Mass/Vol] 4.6 g/dL 3.9 - 4.9 g/dL [facility] ALP [Catalytic activity/Vol] 69 U/L 38 - 113 U/L [facility] ALT [Catalytic activity/Vol] 33 U/L 10 - 54 U/L [facility] Anion gap [Moles/Vol] 11 mmol/L 9 - 18 mmol/L [facility] AST [Catalytic activity/Vol] 26 U/L 14 - 40 U/L [facility] Bilirubin [Mass/Vol] 0.8 mg/dL 0.2 - 1 .3 mg/dL [facility] Calcium [Mass/Vol] 9.6 mg/dL 8.5 - 10. 2 mg/dL [facility] Chloride [Moles/Vol] 99 mmol/L 97 - 10 5 mmol/L [facility] CO2 [Moles/Vol] 28 mmol/L 22 - 30 mmol/L [facility] Creatinine [Mass/Vol] 1.27 mg/dL High 0.73 - 1.22 mg/dL [facility] Estimated Glomerular Filtration Rate 60 mL/min/1.73m >=60 mL/min/1.73 m [facility] Glucose [Mass/Vol] 116 mg/dL High 74 - 99 mg/dL [facility] Potassium [Moles/Vol] 3.6 mmol/L Low 3.7 - 5.1 mmol/L [facility] Protein [Mass/Vol] 7.3 g/dL 6.3 - 8.0 g/dL [facility] Sodium [Moles/Vol] 138 mmol/L 136 - 144 mmol/L [facility] Urea nitrogen [Mass/Vol] 22 mg/dL 9 - 24 mg/dL [facility] A1C HEMOGLOBINon 07-20-2022 HbA1c (Bld) [Mass fraction] 6.7 % [facility] Other Glucose - FINGER STICKon Glucose [Mass/Vol] 122 mg/dL [facility] Other HbA1c (Bld) [Mass fraction]o n 07-20-2022 A1C HEMOGLOBIN [employer] Other Glucose Glucometer (BldC) [M ass/Vol]Ordered By: Brandy Banks on 05-11-2022 Glucose [Mass/Vol] 122 mg/dL [facility] Comment on above: Random Glucose Refer ence Range is dependent on time and content of last meal. Glucose of more than 200 mg/dL in a nonstressed, ambulatory subject supports the diagnosis of Diabetes Mellitus. No Panel InformationOrdered By: Brandy Banks on 05-11-2022 Bedside Glucose Comment Glu2: cleaned meter [facility] COVID-19 SOFIAOrdered By: Reyes Banks on 05-07-2022 SARS-CoV+SARS-CoV-2 (COVID-19) Ag IA.rapid Ql (Resp) Negative Negative [facility] Comment on above: This is a duplicate [facility] SARS Antigen (ISAIAS) result to be used for statistical tracking purpose only. No Panel InformationOrdered By: Brandy Banks on 05-07-2022 SARS Antigen (LFIA) [facility] A1C HEMOGLOBINon 03-26-2022 HbA1c (Bld) [Mass fraction] 6.4 % [facility] Other Glucose - FINGER STICKon Glucose [Mass/Vol] 106 mg/dL [facility] Other HbA1c (Bld) [Mass fraction]o n 03-26-2022 A1C HEMOGLOBIN [employer] Other A1C HEMOGLOBINon 08-26-2021 HbA1c (Bld) [Mass fraction] 6.9 % [facility] Other Glucose - FINGER STICKon Glucose [Mass/Vol] 140 mg/dL [facility] Other HbA1c (Bld) [Mass fraction]o n 08-26-2021 A1C HEMOGLOBIN [employer] Other Joaquin 07-23-2021 JEANNETTE Telephone (HEMASA) GAGANDEEP AHN ([id number]) 1950 M Date Time Provider Department 07/23/21 LUL OROPEZA During your visit today, we recorded the following information about you: Lul Oropeza RN 07/23/2021 1:15 PM Signed Received call from Laura at [facility] stating pt's blood was hemolyzed so they were not able to get a potassium result for the CMP. It will need to be reordered and redrawn if potassium is needed. BRM: Would you like to reorder and have pt come back in? SHAKIRA Adams MD 07/23/2021 1:51 PM Signed Not necessary to redraw lab. Thanks, BRM Allergies As of Date: 07/23/2021 (No Known Allergies) Date Reviewed: 07/22/2021 Reviewed by: Ellie Dow - Fully Assessed Reason for Visit: Results [95] Orders [681] Prescriptions as of 07/23/2021 - lamoTRIgine 25 mg (35) DsPk Take by mouth. Take 25 mg by mouth every other day during Weeks 1 and 2, THEN 25 mg once daily during Weeks 3 and 4, THEN 50 mg once daily during Week 5 - hydroCHLOROthiazide (HYDRODIURIL, ESIDRIX) 12.5 mg tablet Take 25 mg by mouth q 24 HR. - amLODIPine (NORVASC) 5 mg tablet Take 5 mg by mouth once daily. - rosuvastatin (CRESTOR) 20 mg tablet Take 20 mg by mouth once daily. - albuterol HFA (PROVENTIL HFA, VENTOLIN HFA) 90 mcg/actuation inhaler Albuterol Albuterol Sulfate Active 2 PUFF Inhalation As Directed March 31, 2019 10:06am 03-31-2019 [facility] ([id number]) - busPIRone (BUSPAR) 10 mg tablet Take 10 mg by mouth three times daily. - QUEtiapine (SEROQUEL) 50 mg tablet Take 50 mg by mouth twice daily. - insulin detemir U-100 (LEVEMIR) 100 unit/mL (3 mL) injection pen insulin detemir Insulin Detemir U-100 Active 17 UNIT Subcutaneous Daily March 31, 2019 10:08am 03-31-2019 [facility] ([id number]) - tiotropium (SPIRIVA) 18 mcg inhalation capsule tiotropium Tiotropium [place] Active 2 PUFF Inhalation Daily March 31, 2019 10:06am 03-31-2019 [facility] ([id number]) - losartan (COZAAR) 50 mg tablet Take 50 mg by mouth once daily. - diphenoxylate-atropin e (LOMOTIL) 2.5-0.025 mg per tablet Take 1 tablet by mouth four times daily as needed for up to 60 days. - sildenafil (VIAGRA) 100 mg tablet Take 1 tablet by mouth as needed. - iv contrast (will be provided with radiology test) CT Chest ABD/PEL-Inject, intravenously, once for 1 dose.No IV access, insert saline lock prior to the beginning of sedation, infusion, injection of imaging exam. Discontinue saline lock post exam. If Pt. has a central line or IVAD, may access for administration according to line specific nursing protocol. Once exam is complete flush line and de-access according to line specific nursing protocol in the CT contrast administration guidelines link. - enteric contrast (will be provided with radiology test) For CT CHESTABD/PEL W IVCON Routine order Administer, As Directed One Time Only, via Oral, Rectal, both Oral and Rectal, Enteric Tube, Stoma or Indwelling Catheter, Enteric Contrast as designated per enteric contrast guidelines - calcium-cholecalcifer ol, D3, (OSCAL+D 250) 250-125 mg-unit per tablet Take 2 tablets by mouth twice daily. - iv contrast (will be provided with radiology test) CT Chest ABD/PEL-Inject, intravenously, once for 1 dose.No IV access, insert saline lock prior to the beginning of sedation, infusion, injection of imaging exam. Discontinue saline lock post exam. If Pt. has a central line or IVAD, may access for administration according to line specific nursing protocol. Once exam is complete flush line and de-access according to line specific nursing protocol in the CT contrast administration guidelines link. - enteric contrast (will be provided with radiology test) For CT CHESTABD/PEL W IVCON Routine order Administer, As Directed One Time Only, via Oral, Rectal, both Oral and Rectal, Enteric Tube, Stoma or Indwelling Catheter, Enteric Contrast as designated per enteric contrast guidelines - aspirin, enteric coated (ASPIRIN, ENTERIC COATED) 81 mg EC tablet Take 81 mg by mouth. - glyBURIDE (DIABETA) 5 mg tablet Take 5 mg by mouth. - metoprolol succinate ER (TOPROL XL) 50 mg 24 hr tablet Take 50 mg by mouth. - iv contrast (will be provided with radiology test) CT Chest ABD/PEL-Inject, intravenously, once for 1 dose.No IV access, insert saline lock prior to the beginning of sedation, infusion, injection of imaging exam. Discontinue saline lock post exam. If Pt. has a central line or IVAD, may access for administration according to line specific nursing protocol. Once exam is complete flush line and de-access according to line specific nursing protocol in the CT contrast administration guidelines link. - enteric contrast (will be provided with radiology test) For CT CHESTABD/PEL W IVCON Routine order Admin (more content not included)... Normal [facility] CEAon 07-22-2021 CEA 1.2 ng/mL Normal 0.0-2.9 [facility] Comment on above: Result Comment: Test analyzed by the [employer] DxI method. Performed By: #### C EA #### [facility] [address], [place] [address] CNOVSPon 07-22-2021 CNOVSP Visit (SP) Office (JUANI) GAGANDEEP AHN ([id number]) 1950 M Date Time Provider Department 07/22/21 2:15 PM RAMOS, MOISE R HEMASA During your visit today, we recorded the following information about you: Temperature Pulse Respiration Blood pressure 97.9 degrees 58/minute 18/minute 139/66 Weight Height 87.5 kg 1.765 m Moise Ramos MD 07/22/2021 9:06 PM Signed PATIENT NAME: Gagandeep Ahn DATE: 07/22/2021 PRIMARY CARE PHYSICIAN: Kota Funes CNP (NOMS) OTHER PHYSICIANS: Dr. Brandy Banks, Dr. Salinas Portions of this encounter note have been copied from the note from 01/07/2021 and has been updated where appropriate, and reflect my current medical decision making from today. CC: This is a 70 year old male with a history of colon cancer, seen for scheduled follow-up. INTERIM HISTORY: Since the patient's last visit here he has had no significant medical changes. As before he has frequent diarrhea, unchanged. No abdominal pain or other GI symptoms. Overall he feels fairly well with no particular complaints. MEDICATIONS: lamoTRIgine 25 mg (35) DsPk Take by mouth. Take 25 mg by mouth every other day during Weeks 1 and 2, THEN 25 mg once daily during Weeks 3 and 4, THEN 50 mg once daily during Week 5 hydroCHLOROthiazide (HYDRODIURIL, ESIDRIX) 12.5 mg tablet Take 25 mg by mouth q 24 HR. amLODIPine (NORVASC) 5 mg tablet Take 5 mg by mouth once daily. rosuvastatin (CRESTOR) 20 mg tablet Take 20 mg by mouth once daily. albuterol HFA (PROVENTIL HFA, VENTOLIN HFA) 90 mcg/actuation inhaler Albuterol Albuterol Sulfate Active 2 PUFF Inhalation As Directed March 31, 2019 10:06am 03-31-2019 [facility] ([id number]) busPIRone (BUSPAR) 10 mg tablet Take 10 mg by mouth three times daily. QUEtiapine (SEROQUEL) 50 mg tablet Take 50 mg by mouth twice daily. insulin detemir U-100 (LEVEMIR) 100 unit/mL (3 mL) injection pen insulin detemir Insulin Detemir U-100 Active 17 UNIT Subcutaneous Daily March 31, 2019 10:08am 03-31-2019 [facility] ([id number]) tiotropium (SPIRIVA) 18 mcg inhalation capsule tiotropium Tiotropium [place] Active 2 PUFF Inhalation Daily March 31, 2019 10:06am 03-31-2019 [facility] ([id number]) losartan (COZAAR) 50 mg tablet Take 50 mg by mouth once daily. diphenoxylate-atropin e (LOMOTIL) 2.5-0.025 mg per tablet Take 1 tablet by mouth four times daily as needed for up to 60 days. sildenafil (VIAGRA) 100 mg tablet Take 1 tablet by mouth as needed. iv contrast (will be provided with radiology test) CT Chest ABD/PEL-Inject, intravenously, once for 1 dose.No IV access, insert saline lock prior to the beginning of sedation, infusion, injection of imaging exam. Discontinue saline lock post exam. If Pt. has a central line or IVAD, may access for administration according to line specific nursing protocol. Once exam is complete flush line and de-access according to line specific nursing protocol in the CT contrast administration guidelines link. enteric contrast (will be provided with radiology test) For CT CHESTABD/PEL W IVCON Routine order Administer, As Directed One Time Only, via Oral, Rectal, both Oral and Rectal, Enteric Tube, Stoma or Indwelling Catheter, Enteric Contrast as designated per enteric contrast guidelines calcium-cholecalcifer ol, D3, (OSCAL+D 250) 250-125 mg-unit per tablet Take 2 tablets by mouth twice daily. iv contrast (will be provided with radiology test) CT Chest ABD/PEL-Inject, intravenously, once for 1 dose.No IV access, insert saline lock prior to the beginning of sedation, infusion, injection of imaging exam. Discontinue saline lock post exam. If Pt. has a central line or IVAD, may access for administration according to line specific nursing protocol. Once exam is complete flush line and de-access according to line specific nursing protocol in the CT contrast administration guidelines link. enteric contrast (will be provided with radiology test) For CT CHESTABD/PEL W IVCON Routine order Administer, As Directed One Time Only, via Oral, Rectal, both Oral and Rectal, Enteric Tube, Stoma or Indwelling Catheter, Enteric Contrast as designated per enteric contrast guidelines aspirin, enteric coated (ASPIRIN, ENTERIC COATED) 81 mg EC tablet Take 81 mg by mouth. glyBURIDE (DIABETA) 5 mg tablet Take 5 mg by mouth. metoprolol succinate ER (TOPROL XL) 50 mg 24 hr tablet Take 50 mg by mouth. iv contrast (will be provided with radiology test) CT Chest ABD/PEL-Inject, intravenously, once for 1 dose.No IV access, insert saline lock prior to the beginning of sedation, infusion, injection of imaging exam. Discontinue saline lock post exam. If Pt. has a central line or IVAD, may access for administration according to line specific nursing protocol. Once exam is complete flush line and de-access according (more content not included)... Normal [facility] Joaquin 07-22-2021 CNPN Telephone ([facility]) GAGANDEEP AHN ([id number]) 1950 M Date Time Provider Department 07/22/21 MOISE RAMOS [facility] During your visit today, we recorded the following information about you: Isabella Lyons 07/22/2021 2:43 PM Signed Patient has been scheduled for follow up w/ Dr. Banks regarding port removal on 08/01/21 @ 10:30 am. Isabella Lyons Allergies As of Date: 07/22/2021 (No Known Allergies) Date Reviewed: 07/22/2021 Reviewed by: Ellie Dow - Fully Assessed Reason for Visit: Port Removal [[id number]] Prescriptions as of 07/22/2021 - lamoTRIgine 25 mg (35) DsPk Take by mouth. Take 25 mg by mouth every other day during Weeks 1 and 2, THEN 25 mg once daily during Weeks 3 and 4, THEN 50 mg once daily during Week 5 - hydroCHLOROthiazide (HYDRODIURIL, ESIDRIX) 12.5 mg tablet Take 25 mg by mouth q 24 HR. - amLODIPine (NORVASC) 5 mg tablet Take 5 mg by mouth once daily. - rosuvastatin (CRESTOR) 20 mg tablet Take 20 mg by mouth once daily. - albuterol HFA (PROVENTIL HFA, VENTOLIN HFA) 90 mcg/actuation inhaler Albuterol Albuterol Sulfate Active 2 PUFF Inhalation As Directed March 31, 2019 10:06am 03-31-2019 [facility] ([id number]) - busPIRone (BUSPAR) 10 mg tablet Take 10 mg by mouth three times daily. - QUEtiapine (SEROQUEL) 50 mg tablet Take 50 mg by mouth twice daily. - insulin detemir U-100 (LEVEMIR) 100 unit/mL (3 mL) injection pen insulin detemir Insulin Detemir U-100 Active 17 UNIT Subcutaneous Daily March 31, 2019 10:08am 03-31-2019 [facility] ([id number]) - tiotropium (SPIRIVA) 18 mcg inhalation capsule tiotropium Tiotropium [place] Active 2 PUFF Inhalation Daily March 31, 2019 10:06am 03-31-2019 [facility] ([id number]) - losartan (COZAAR) 50 mg tablet Take 50 mg by mouth once daily. - diphenoxylate-atropin e (LOMOTIL) 2.5-0.025 mg per tablet Take 1 tablet by mouth four times daily as needed for up to 60 days. - sildenafil (VIAGRA) 100 mg tablet Take 1 tablet by mouth as needed. - iv contrast (will be provided with radiology test) CT Chest ABD/PEL-Inject, intravenously, once for 1 dose.No IV access, insert saline lock prior to the beginning of sedation, infusion, injection of imaging exam. Discontinue saline lock post exam. If Pt. has a central line or IVAD, may access for administration according to line specific nursing protocol. Once exam is complete flush line and de-access according to line specific nursing protocol in the CT contrast administration guidelines link. - enteric contrast (will be provided with radiology test) For CT CHESTABD/PEL W IVCON Routine order Administer, As Directed One Time Only, via Oral, Rectal, both Oral and Rectal, Enteric Tube, Stoma or Indwelling Catheter, Enteric Contrast as designated per enteric contrast guidelines - calcium-cholecalcifer ol, D3, (OSCAL+D 250) 250-125 mg-unit per tablet Take 2 tablets by mouth twice daily. - iv contrast (will be provided with radiology test) CT Chest ABD/PEL-Inject, intravenously, once for 1 dose.No IV access, insert saline lock prior to the beginning of sedation, infusion, injection of imaging exam. Discontinue saline lock post exam. If Pt. has a central line or IVAD, may access for administration according to line specific nursing protocol. Once exam is complete flush line and de-access according to line specific nursing protocol in the CT contrast administration guidelines link. - enteric contrast (will be provided with radiology test) For CT CHESTABD/PEL W IVCON Routine order Administer, As Directed One Time Only, via Oral, Rectal, both Oral and Rectal, Enteric Tube, Stoma or Indwelling Catheter, Enteric Contrast as designated per enteric contrast guidelines - aspirin, enteric coated (ASPIRIN, ENTERIC COATED) 81 mg EC tablet Take 81 mg by mouth. - glyBURIDE (DIABETA) 5 mg tablet Take 5 mg by mouth. - metoprolol succinate ER (TOPROL XL) 50 mg 24 hr tablet Take 50 mg by mouth. - iv contrast (will be provided with radiology test) CT Chest ABD/PEL-Inject, intravenously, once for 1 dose.No IV access, insert saline lock prior to the beginning of sedation, infusion, injection of imaging exam. Discontinue saline lock post exam. If Pt. has a central line or IVAD, may access for administration according to line specific nursing protocol. Once exam is complete flush line and de-access according to line specific nursing protocol in the CT contrast administration guidelines link. - enteric contrast (will be provided with radiology test) For CT CHESTABD/PEL W IVCON Routine order Administer, As Directed One Time Only, via Oral, Rectal, both Oral and Rectal, Enteric Tube, Stoma or Indwelling Catheter, Enteric Contrast as designated per enteric contrast guidelines - iv contrast (radiology procedure) CT Chest ABD/PEL-Inject, intravenously, once (more content not included)... Normal [facility] Comp Metabolic Panelon 07-22 Albumin [Mass/Vol] 4.3 g/dL Normal 3.9-4.9 [facility] Comment on above: Performed By: #### C MP #### [facility] [employer] [address] [place], [place] [address] ALP [Catalytic activity/Vol] 43 U/L Normal 38-113 [facility] Comment on above: Performed By: #### C MP #### [facility] [employer] [address] [place], [place] [address] ALT [Catalytic activity/Vol] 25 U/L Normal 10-54 [facility] Comment on above: Result Comment: Resu lts may be falsely increased due to interference by hemolysis. Suggest reorder as clinically indicated. Performed By: #### C MP #### [facility] [employer] [address] [place], [place] [address] Anion Gap Duplicate request Normal 9-18 [facility] Comment on above: Result Comment: Acco unt Credited DUPLICATE ORDER MW [id number] Performed By: #### C MP #### [facility] [employer] [address] [place], [place] [address] AST Unable to assay. Specimen hemolyzed. Normal 14-40 [facility] Comment on above: Performed By: #### C MP #### [facility] [employer] [address] [place], [place] [address] Bilirubin [Mass/Vol] 0.7 mg/dL Normal 0.2-1.3 [facility] Comment on above: Performed By: #### C MP #### [facility] [employer] [address] [place], [place] [address] Calcium [Mass/Vol] 9.7 mg/dL Normal 8.5-10.2 [facility] Comment on above: Performed By: #### C MP #### [facility] [employer] [address], [place] [address] Chloride Duplicate request Normal 97-105 [facility] Comment on above: Result Comment: Acco unt Credited DUPLICATE ORDER MW [id number] Performed By: #### C MP #### [facility] [employer] [address] [place], [place] [address] CO2 [Moles/Vol] 27 mmol/L Normal 22-30 [facility] Comment on above: Performed By: #### C MP #### [facility] [employer] [address] [place], [place] [address] Creatinine [Mass/Vol] 0.87 mg/dL Normal 0.73-1.22 [facility] Comment on above: Performed By: #### C MP #### [facility] [place] [employer] [address] [place] [id number] eGFR- Amer. >60 Normal [facility] Comment on above: Performed By: #### C MP #### [facility] [place] [employer] [address] [place] [address] eGFR-All Other Races >60 Normal [facility] Comment on above: Result Comment: eGFR (Estimated GFR) Units of measure: mL/min/1.73 meters squared eGFR is derived from the reexpressed MDRD Study equation using the following parameters: serum creatinine, age, gender and race. The creatinine assay has been calibrated to be traceable to IDMS. An eGFR <60 mL/min/1.73m2 for >3 months is consistent with chronic kidney disease. Refer to KDOQI guidelines for clinical interpretation. In patients with unstable renal function, e.g. those with acute kidney injury, the eGFR may not accurately reflect actual GFR. Note: On 08/23/2021, the eGFR calculation will be updated to the NKF-ASN Task Force recommended 2020 CKD-EPI creatinine equation which does not include a race variable. For more information or to access a 2020 CKD-EPI calculator, visit the National Kidney Foundation website at kidney.org/professionals/kdoqi/gfr_calculator. Performed By: #### C MP #### [facility] [employer] [address] [place] [address] Glucose [Mass/Vol] 83 mg/dL Normal 74-99 [facility] Comment on above: Result Comment: The [place] Diabetes Association (ADA) provides guidance for cutoff values for fasting glucose and random glucose. The ADA defines fasting as no caloric intake for at least 8 hours. Fasting plasma glucose results between 100 to 125 mg/dL indicate increased risk for diabetes (prediabetes). Fasting plasma glucose results greater than or equal to 126 mg/dL meet the criteria for diagnosis of diabetes. In the absence of unequivocal hyperglycemia, results should be confirmed by repeat testing. In a patient with classic symptoms of hyperglycemia or hyperglycemic crisis, random plasma glucose results greater than or equal to 200 mg/dL meet the criteria for diagnosis of diabetes. Reference: Standards of Medical Care in Diabetes 2016, [place] [employer] Association. Diabetes Care. 2016.39(Suppl 1). Performed By: #### C MP #### [facility] [employer] [address] [place], [place] [address] Potassium Duplicate request Normal 3.7-5.1 [facility] Comment on above: Result Comment: Acco unt Credited DUPLICATE ORDER MW [id number] Performed By: #### C MP #### [facility] [employer] [address] [place], [place] [address] Protein [Mass/Vol] 7.0 g/dL Normal 6.3-8.0 [facility] Comment on above: Performed By: #### C MP #### [facility] [employer] [address] [place], [place] [address] Sodium Duplicate request Normal 136-144 [facility] Comment on above: Result Comment: Acco unt Credited DUPLICATE ORDER MW [id number] Performed By: #### C MP #### [facility] [employer] [address] [place], [place] [address] Urea nitrogen [Mass/Vol] 27 mg/dL High 9-24 [facility] Comment on above: Performed By: #### C MP #### [facility] [employer] [address] [place], [place] [address] Albumin [Mass/Vol] 4.1 g/dL Normal 3.9-4.9 [facility] Comment on above: Performed By: #### C MP #### [facility] [place] [employer] [address] [place], [place] [address] ALP [Catalytic activity/Vol] 44 U/L Normal 38-113 [facility] Comment on above: Performed By: #### C MP #### [facility] [employer] [address] [place], [place] [address] ALT [Catalytic activity/Vol] 27 U/L Normal 10-54 [facility] Comment on above: Result Comment: Resu lts may be falsely increased due to interference by hemolysis. Suggest reorder as clinically indicated. Performed By: #### C MP #### [facility] [employer] [address] [place], [place] [address] Anion gap [Moles/Vol] 16 mmol/L Normal 9-18 [facility] Comment on above: Performed By: #### C MP #### [facility] [employer] [address], [place] [address] AST [Catalytic activity/Vol] 41 U/L High 14-40 [facility] Comment on above: Result Comment: Resu lts may be falsely increased due to interference by hemolysis. Suggest reorder as clinically indicated. Performed By: #### C MP #### [facility] [employer] [address] [place], [place] [address] Bilirubin [Mass/Vol] 0.6 mg/dL Normal 0.2-1.3 [facility] Comment on above: Performed By: #### C MP #### [facility] [employer] [address], [place] [address] Calcium [Mass/Vol] 10.0 mg/dL Normal 8.5-10.2 [facility] Comment on above: Performed By: #### C MP #### [facility] [employer] [address], [place] [address] Chloride [Moles/Vol] 103 mmol/L Normal 97-105 [facility] Comment on above: Performed By: #### C MP #### [facility] [employer] [address] [place], [place] [address] CO2 [Moles/Vol] 22 mmol/L Normal 22-30 [facility] Comment on above: Performed By: #### C MP #### [facility] [employer] [address], [place] [address] Creatinine [Mass/Vol] 0.85 mg/dL Normal 0.73-1.22 [facility] Comment on above: Performed By: #### C MP #### [facility] [employer] [address] [place], [place] [id number] eGFR- Amer. >60 Normal [facility] Comment on above: Performed By: #### C MP #### [facility] [employer] [address] [place], [place] [id number] eGFR-All Other Races >60 Normal [facility] Comment on above: Result Comment: eGFR (Estimated GFR) Units of measure: mL/min/1.73 meters squared eGFR is derived from the reexpressed MDRD Study equation using the following parameters: serum creatinine, age, gender and race. The creatinine assay has been calibrated to be traceable to IDMS. An eGFR <60 mL/min/1.73m2 for >3 months is consistent with chronic kidney disease. Refer to KDOQI guidelines for clinical interpretation. In patients with unstable renal function, e.g. those with acute kidney injury, the eGFR may not accurately reflect actual GFR. Note: On 08/23/2021, the eGFR calculation will be updated to the NKF-ASN Task Force recommended 2020 CKD-EPI creatinine equation which does not include a race variable. For more information or to access a 2020 CKD-EPI calculator, visit the National Kidney Foundation website at kidney.org/professionals/kdoqi/gfr_calculator. Performed By: #### C MP #### [facility] [address] [place], [place] [id number] Glucose [Mass/Vol] 67 mg/dL Low 74-99 [facility] Comment on above: Result Comment: The [place] Diabetes Association (ADA) provides guidance for cutoff values for fasting glucose and random glucose. The ADA defines fasting as no caloric intake for at least 8 hours. Fasting plasma glucose results between 100 to 125 mg/dL indicate increased risk for diabetes (prediabetes). Fasting plasma glucose results greater than or equal to 126 mg/dL meet the criteria for diagnosis of diabetes. In the absence of unequivocal hyperglycemia, results should be confirmed by repeat testing. In a patient with classic symptoms of hyperglycemia or hyperglycemic crisis, random plasma glucose results greater than or equal to 200 mg/dL meet the criteria for diagnosis of diabetes. Reference: Standards of Medical Care in Diabetes 2016, [place] [employer] Association. Diabetes Care. 2016.39(Suppl 1). Performed By: #### C MP #### [facility] [employer] [address] [place], [place] [address] Potassium Unable to assay due to interference from hemolysis. Suggest reorder as clinically indicated. Normal 3.7-5.1 [facility] Comment on above: Performed By: #### C MP #### [facility] [address] [place], [place] [address] Protein [Mass/Vol] 7.1 g/dL Normal 6.3-8.0 [facility] Comment on above: Performed By: #### C MP #### [place] [address] [place], [place] [address] Sodium [Moles/Vol] 141 mmol/L Normal 136-144 [facility] Comment on above: Performed By: #### C MP #### [place] [address] [place], [place] [address] Urea nitrogen [Mass/Vol] 26 mg/dL High 9-24 [facility] Comment on above: Performed By: #### C MP #### [facility] [address] [place], [place] [address] Remote CBCDIF (for [facility] use o nly)on 07-22-2021 Abs Baso 0.05 k/uL Normal <0.11 [facility] Abs Gray 0.68 k/uL Normal <0.87 [facility] Abs Neut 6.20 k/uL Normal 1.45-7.50 [facility] Absolute nRBC <0.01 Normal <0.01 [facility] Basophils/100 WBC (Bld) 0.5 % Normal C [facility] DTYPE Auto Diff Normal [facility] Eosinophils (Bld) [#/Vol] 0.29 10*3/uL Normal <0.46 [facility] Eosinophils/100 WBC (Bld) 3.2 % Normal [facility] Erythrocyte distribution width (RBC) [Ratio] 14.0 % Normal 11.5-15.0 [facility] Hematocrit (Bld) [Volume fraction] 41.3 % Normal 39.0-51.0 [facility] Hemoglobin (Bld) [Mass/Vol] 13.5 g/dL Normal 13.0-17.0 [facility] Lymphocytes (Bld) [#/Vol] 1.95 10*3/uL Normal 1.00-4.00 [facility] Lymphocytes/100 WBC (Bld) 21.3 % Normal [facility] MCH 27.8 pG Normal 26.0-34.0 [facility] MCHC (RBC) [Mass/Vol] 32.7 g/dL Normal 30.5-36.0 [facility] MCV (RBC) [Entitic vol] 85.2 fL Normal 80.0-100.[address] [facility] Monocytes/100 WBC (Bld) 7.4 % Normal C [facility] Neutrophils/100 WBC (Bld) 67.6 % Normal [facility] NRBCs 0.0 /100 WBC Normal 0 [facility] Platelet mean volume (Bld) [Entitic vol] 11.3 fL Normal 9.0-12.7 [facility] Platelets (Bld) [#/Vol] 229 10*3/uL Normal 150-400 [facility] RBC (Bld) [#/Vol] 4.85 10*6/uL Normal 4.20-6.00 [facility] WBC (Bld) [#/Vol] 9.17 10*3/uL Normal 3.70-11.00 [facility] A1C HEMOGLOBINon 07-14-2021 HbA1c (Bld) [Mass fraction] 8.5 % [employer] [facility] Other Glucose - FINGER STICKon Glucose [Mass/Vol] 275 mg/dL [facility] Other HbA1c (Bld) [Mass fraction]o n 07-14-2021 A1C HEMOGLOBIN [employer] Other CBC and Differentialon 01-07 Abs Baso 0.04 k/uL Normal <0.11 [facility] Abs Gray 0.62 k/uL Normal <0.87 [facility] Abs Neut 5.03 k/uL Normal 1.45-7.50 [facility] Absolute nRBC <0.01 Normal <0.01 [facility] Basophils/100 WBC (Bld) 0.5 % Normal C [facility] DTYPE Auto Diff Normal [facility] Eosinophils (Bld) [#/Vol] 0.54 10*3/uL High <0.46 [facility] Eosinophils/100 WBC (Bld) 6.7 % Normal [facility] Erythrocyte distribution width (RBC) [Ratio] 14.4 % Normal 11.5-15.0 [facility] Hematocrit (Bld) [Volume fraction] 39.2 % Normal 39.0-51.0 [facility] Hemoglobin (Bld) [Mass/Vol] 13.0 g/dL Normal 13.0-17.0 [facility] Lymphocytes (Bld) [#/Vol] 1.78 10*3/uL Normal 1.00-4.00 [facility] Lymphocytes/100 WBC (Bld) 22.2 % Normal [facility] MCH 27.4 pG Normal 26.0-34.0 [facility] MCHC (RBC) [Mass/Vol] 33.2 g/dL Normal 30.5-36.0 [facility] MCV (RBC) [Entitic vol] 82.7 fL Normal 80.0-100.[address] [facility] Monocytes/100 WBC (Bld) 7.7 % Normal C [facility] Neutrophils/100 WBC (Bld) 62.9 % Normal [facility] NRBCs 0.0 /100 WBC Normal 0 [facility] Platelet mean volume (Bld) [Entitic vol] 10.3 fL Normal 9.0-12.7 [facility] Platelets (Bld) [#/Vol] 248 10*3/uL Normal 150-400 [facility] RBC (Bld) [#/Vol] 4.74 10*6/uL Normal 4.20-6.00 [facility] WBC (Bld) [#/Vol] 8.03 10*3/uL Normal 3.70-11.00 [facility] CEAon 01-07-2021 CEA 1.9 ng/mL Normal 0.0-2.9 [facility] Comment on above: Result Comment: Test analyzed by the [employer] DxI method. Performed By: #### C EA #### [facility] [address] [place], [place] [address] CNOVSPon 01-07-2021 CNOVSP Visit (SP) Office ([place]) GAGANDEEP AHN ([id number]) 1950 M Date Time Provider Department 01/07/21 3:00 PM STEPHANI RUELAS During your visit today, we recorded the following information about you: Temperature Pulse Respiration Blood pressure 97.8 degrees 66/minute 18/minute 126/76 Weight Height 86.6 kg 1.765 m Stephani Ruelas APRN.CNP 01/07/2021 3:45 PM Signed PATIENT NAME: Gagandeep Ahn DATE: 01/07/2021 (Elements copied from Moise Ramos MD note dated 07/22/2020 , have been reviewed and updated where appropriate, and all reflect current assessment and medical decision making during today's encounter, January 07, 2021) PRIMARY CARE PHYSICIAN: Kota Funes CNP ([facility]) OTHER PHYSICIANS: Dr. Brandy aBnks, Dr. Salinas CC: This is a 70 year old male with a history of colon cancer, seen for scheduled follow-up (prior patient of Dr. Barker). INTERIM HISTORY: Gagandeep Ahn returns for a 6-month follow-up. Since his last visit there has been no significant medical changes. He denies any change in bowel habits. He states that 99.9% of the time his stools are diarrhea. He does take over the counter antidiarrheal medications. He denies any blood in his stools. No abdominal pain or other GI complaints. He denies any unusual pain. No cough, shortness of breath or other pulmonary symptoms. Overall, doing well with no new complaints today. MEDICATIONS: lamoTRIgine 25 mg (35) DsPk Take by mouth. Take 25 mg by mouth every other day during Weeks 1 and 2, THEN 25 mg once daily during Weeks 3 and 4, THEN 50 mg once daily during Week 5 hydroCHLOROthiazide (HYDRODIURIL, ESIDRIX) 12.5 mg tablet Take 25 mg by mouth q 24 HR. amLODIPine (NORVASC) 5 mg tablet Take 5 mg by mouth once daily. rosuvastatin (CRESTOR) 20 mg tablet Take 20 mg by mouth once daily. albuterol HFA (PROVENTIL HFA, VENTOLIN HFA) 90 mcg/actuation inhaler Albuterol Albuterol Sulfate Active 2 PUFF Inhalation As Directed March 31, 2019 10:06am 03-31-2019 [facility] ([id number]) busPIRone (BUSPAR) 10 mg tablet Take 10 mg by mouth three times daily. QUEtiapine (SEROQUEL) 50 mg tablet Take 50 mg by mouth twice daily. insulin detemir U-100 (LEVEMIR) 100 unit/mL (3 mL) injection pen insulin detemir Insulin Detemir U-100 Active 17 UNIT Subcutaneous Daily March 31, 2019 10:08am 03-31-2019 [facility] ([id number]) tiotropium (SPIRIVA) 18 mcg inhalation capsule tiotropium Tiotropium [place] Active 2 PUFF Inhalation Daily March 31, 2019 10:06am 03-31-2019 [facility] ([id number]) losartan (COZAAR) 50 mg tablet Take 50 mg by mouth once daily. diphenoxylate-atropin e (LOMOTIL) 2.5-0.025 mg per tablet Take 1 tablet by mouth four times daily as needed for up to 60 days. sildenafil (VIAGRA) 100 mg tablet Take 1 tablet by mouth as needed. iv contrast (will be provided with radiology test) CT Chest ABD/PEL-Inject, intravenously, once for 1 dose.No IV access, insert saline lock prior to the beginning of sedation, infusion, injection of imaging exam. Discontinue saline lock post exam. If Pt. has a central line or IVAD, may access for administration according to line specific nursing protocol. Once exam is complete flush line and de-access according to line specific nursing protocol in the CT contrast administration guidelines link. enteric contrast (will be provided with radiology test) For CT CHESTABD/PEL W IVCON Routine order Administer, As Directed One Time Only, via Oral, Rectal, both Oral and Rectal, Enteric Tube, Stoma or Indwelling Catheter, Enteric Contrast as designated per enteric contrast guidelines calcium-cholecalcifer ol, D3, (OSCAL+D 250) 250-125 mg-unit per tablet Take 2 tablets by mouth twice daily. iv contrast (will be provided with radiology test) CT Chest ABD/PEL-Inject, intravenously, once for 1 dose.No IV access, insert saline lock prior to the beginning of sedation, infusion, injection of imaging exam. Discontinue saline lock post exam. If Pt. has a central line or IVAD, may access for administration according to line specific nursing protocol. Once exam is complete flush line and de-access according to line specific nursing protocol in the CT contrast administration guidelines link. enteric contrast (will be provided with radiology test) For CT CHESTABD/PEL W IVCON Routine order Administer, As Directed One Time Only, via Oral, Rectal, both Oral and Rectal, Enteric Tube, Stoma or Indwelling Catheter, Enteric Contrast as designated per enteric contrast guidelines aspirin, enteric coated (ASPIRIN, ENTERIC COATED) 81 mg EC tablet Take 81 mg by mouth. glyBURIDE (DIABETA) 5 mg tablet Take 5 mg by mouth. metoprolol succinate ER (TOPROL XL) 50 mg 24 hr tablet Take 50 mg by mouth. iv contrast (will be provided with radiology test) CT Chest ABD/PEL-Inject, intr (more content not included)... Normal [facility] Comp Metabolic Panelon 01-07 Albumin [Mass/Vol] 4.1 g/dL Normal 3.9-4.9 [facility] ALP [Catalytic activity/Vol] 61 U/L Normal 38-113 [facility] ALT [Catalytic activity/Vol] 25 U/L Normal 10-54 [facility] Anion gap [Moles/Vol] 12 mmol/L Normal 9-18 [facility] AST [Catalytic activity/Vol] 21 U/L Normal 14-40 [facility] Bilirubin [Mass/Vol] 0.6 mg/dL Normal 0.2-1.3 [facility] Calcium [Mass/Vol] 9.6 mg/dL Normal 8.5-10.2 [facility] Chloride [Moles/Vol] 100 mmol/L Normal 97-105 [facility] CO2 [Moles/Vol] 25 mmol/L Normal 22-30 [facility] Creatinine [Mass/Vol] 0.81 mg/dL Normal 0.73-1.22 [facility] eGFR- Amer. >60 Normal [facility] eGFR-All Other Races >60 Normal [facility] Comment on above: Result Comment: eGFR (Estimated GFR) Units of measure: mL/min/1.73 meters squared eGFR is derived from the reexpressed MDRD Study equation using the following parameters: serum creatinine, age, gender and race. The creatinine assay has been calibrated to be traceable to IDMS. An eGFR <60 mL/min/1.73m2 for >3 months is consistent with chronic kidney disease. Refer to KDOQI guidelines for clinical interpretation. In patients with unstable renal function, e.g. those with acute kidney injury, the eGFR may not accurately reflect actual GFR. Glucose [Mass/Vol] 309 mg/dL High 74-99 [facility] Comment on above: Result Comment: The [place] Diabetes Association (ADA) provides guidance for cutoff values for fasting glucose and random glucose. The ADA defines fasting as no caloric intake for at least 8 hours. Fasting plasma glucose results between 100 to 125 mg/dL indicate increased risk for diabetes (prediabetes). Fasting plasma glucose results greater than or equal to 126 mg/dL meet the criteria for diagnosis of diabetes. In the absence of unequivocal hyperglycemia, results should be confirmed by repeat testing. In a patient with classic symptoms of hyperglycemia or hyperglycemic crisis, random plasma glucose results greater than or equal to 200 mg/dL meet the criteria for diagnosis of diabetes. Reference: Standards of Medical Care in Diabetes 2016, [place] [employer] Association. Diabetes Care. 2016.39(Suppl 1). Potassium [Moles/Vol] 3.8 mmol/L Normal 3.7-5.1 [facility] Protein [Mass/Vol] 7.0 g/dL Normal 6.3-8.0 [facility] High Sodium [Moles/Vol] 137 mmol/L Normal 136-144 [facility] Urea nitrogen [Mass/Vol] 16 mg/dL Normal 9-24 [facility] CNPNon 12-31-2020 CNPN Telephone (JUANI) ELENAGAGANDEEP G ([id number]) 1950 M Date Time Provider Department 12/31/20 MOISE RAMOS During your visit today, we recorded the following information about you: Ellie Dow 12/31/2020 10:32 AM Signed Please sign pending lab orders for Wednesday01/07/21. 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 Take 25 mg by mouth every other day during Weeks 1 and 2, THEN 25 mg once daily during Weeks 3 and 4, THEN 50 mg once daily during Week 5 - hydroCHLOROthiazide (HYDRODIURIL, ESIDRIX) 12.5 mg tablet Take 25 mg by mouth q 24 HR. - amLODIPine (NORVASC) 5 mg tablet Take 5 mg by mouth once daily. - rosuvastatin (CRESTOR) 20 mg tablet Take 20 mg by mouth once daily. - albuterol HFA (PROVENTIL HFA, VENTOLIN HFA) 90 mcg/actuation inhaler Albuterol Albuterol Sulfate Active 2 PUFF Inhalation As Directed March 31, 2019 10:06am 03-31-2019 [facility] ([id number]) - busPIRone (BUSPAR) 10 mg tablet Take 10 mg by mouth three times daily. - QUEtiapine (SEROQUEL) 50 mg tablet Take 50 mg by mouth twice daily. - insulin detemir U-100 (LEVEMIR) 100 unit/mL (3 mL) injection pen insulin detemir Insulin Detemir U-100 Active 17 UNIT Subcutaneous Daily March 31, 2019 10:08am 03-31-2019 [facility] ([id number]) - tiotropium (SPIRIVA) 18 mcg inhalation capsule tiotropium Tiotropium [place] Active 2 PUFF Inhalation Daily March 31, 2019 10:06am 03-31-2019 [facility] ([id number]) - losartan (COZAAR) 50 mg tablet Take 50 mg by mouth once daily. - diphenoxylate-atropin e (LOMOTIL) 2.5-0.025 mg per tablet Take 1 tablet by mouth four times daily as needed for up to 60 days. - sildenafil (VIAGRA) 100 mg tablet Take 1 tablet by mouth as needed. - iv contrast (will be provided with radiology test) CT Chest ABD/PEL-Inject, intravenously, once for 1 dose.No IV access, insert saline lock prior to the beginning of sedation, infusion, injection of imaging exam. Discontinue saline lock post exam. If Pt. has a central line or IVAD, may access for administration according to line specific nursing protocol. Once exam is complete flush line and de-access according to line specific nursing protocol in the CT contrast administration guidelines link. - enteric contrast (will be provided with radiology test) For CT CHESTABD/PEL W IVCON Routine order Administer, As Directed One Time Only, via Oral, Rectal, both Oral and Rectal, Enteric Tube, Stoma or Indwelling Catheter, Enteric Contrast as designated per enteric contrast guidelines - calcium-cholecalcifer ol, D3, (OSCAL+D 250) 250-125 mg-unit per tablet Take 2 tablets by mouth twice daily. - iv contrast (will be provided with radiology test) CT Chest ABD/PEL-Inject, intravenously, once for 1 dose.No IV access, insert saline lock prior to the beginning of sedation, infusion, injection of imaging exam. Discontinue saline lock post exam. If Pt. has a central line or IVAD, may access for administration according to line specific nursing protocol. Once exam is complete flush line and de-access according to line specific nursing protocol in the CT contrast administration guidelines link. - enteric contrast (will be provided with radiology test) For CT CHESTABD/PEL W IVCON Routine order Administer, As Directed One Time Only, via Oral, Rectal, both Oral and Rectal, Enteric Tube, Stoma or Indwelling Catheter, Enteric Contrast as designated per enteric contrast guidelines - aspirin, enteric coated (ASPIRIN, ENTERIC COATED) 81 mg EC tablet Take 81 mg by mouth. - glyBURIDE (DIABETA) 5 mg tablet Take 5 mg by mouth. - metoprolol succinate ER (TOPROL XL) 50 mg 24 hr tablet Take 50 mg by mouth. - iv contrast (will be provided with radiology test) CT Chest ABD/PEL-Inject, intravenously, once for 1 dose.No IV access, insert saline lock prior to the beginning of sedation, infusion, injection of imaging exam. Discontinue saline lock post exam. If Pt. has a central line or IVAD, may access for administration according to line specific nursing protocol. Once exam is complete flush line and de-access according to line specific nursing protocol in the CT contrast administration guidelines link. - enteric contrast (will be provided with radiology test) For CT CHESTABD/PEL W IVCON Routine order Administer, As Directed One Time Only, via Oral, Rectal, both Oral and Rectal, E (more content not included)... Normal [facility] Vital Signs Date Time Vital Sign Value Performing Clinician Facility 10-07-2023 09:53-0400 Body height 175.26 cm ECG TECHNICIANMj Funes Work Phone: [facility] 10-07-2023 09:53-0400 Body mass index (BMI) [Ratio] 22.7 kg/m2 ECG TECHNICIANMj Funes Work Phone: [facility] 10-07-2023 09:53-0400 Body temperature 97.9 [degF] IAIN Funes Work Phone: [facility] 10-07-2023 09:53-0400 Body weight 69.85 kg IAIN Funes Work Phone: [facility] 10-07-2023 09:53-0400 Diastolic blood pressure 62 mm[Hg] ECG TECHNICIAN Kota Anglim Work Phone: [facility] 10-07-2023 09:53-0400 Heart rate 77 /min ECG TECHNICIAN Kota Anglim Work Phone: [facility] 10-07-2023 09:53-0400 Respiratory rate 16 /min ECG TECHNICIAN Kota Anglim Work Phone: [facility] 10-07-2023 09:53-0400 SaO2% (BldA) [Mass fraction] 98 % ECG TECHNICIAN Kota Anglim Work Phone: [facility] 10-07-2023 09:53-0400 Systolic blood pressure 102 mm[Hg] ECG TECHNICIAN Kota Anglim Work Phone: [facility] 09-30-2023 11:15-0400 Body height 175.26 cm ECG TECHNICIANMj Aguirre Anglim Work Phone: [facility] 09-30-2023 11:15-0400 Body mass index (BMI) [Ratio] 22.7 kg/m2 ECG TECHNICIAN Kota Anglim Work Phone: [facility] 09-30-2023 11:15-0400 Body weight 69.85 kg ECG TECHNICIANMj Aguirre Anglim Work Phone: [facility] 09-30-2023 10:25-0400 Body temperature 97.3 [degF] ECG TECHNICIAN Kota Anglim Work Phone: [facility] 09-30-2023 10:25-0400 Diastolic blood pressure 81 mm[Hg] ECG TECHNICIAN Kota Anglim Work Phone: [facility] 09-30-2023 10:25-0400 Heart rate 74 /min ECG TECHNICIAN Kota Anglim Work Phone: [facility] 09-30-2023 10:25-0400 Respiratory rate 18 /min ECG TECHNICIAN Kota Anglim Work Phone: [facility] 09-30-2023 10:25-0400 Systolic blood pressure 152 mm[Hg] ECG TECHNICIANMj Aguirre Angreece Work Phone: [facility] 09-28-2023 15:15-0400 Body height 170.2 cm Jo Veronica MD Work Phone: [facility] 09-28-2023 15:15-0400 Body mass index (BMI) [Ratio] 25.84 kg/m2 Jo Veronica MD Work Phone: [facility] 09-28-2023 15:15-0400 Body weight 74.84 kg Jo Veronica MD Work Phone: [facility] 09-28-2023 15:15-0400 Diastolic blood pressure 72 mm[Hg] Jo Veronica MD Work Phone: [facility] 09-28-2023 15:15-0400 Heart rate 77 /min Jo Veronica MD Work Phone: [facility] 09-28-2023 15:15-0400 Systolic blood pressure 128 mm[Hg] Jo Veronica MD Work Phone: [facility] 09-13-2023 15:00-0400 Diastolic blood pressure 75 mm[Hg] IAIN Funes Work Phone: [facility] 09-13-2023 15:00-0400 Heart rate 71 /min ECG TECHNICIANMj Funes Work Phone: [facility] 09-13-2023 15:00-0400 Respiratory rate 16 /min ECG TECHNICIANMj Aguirre Anglim Work Phone: [facility] 09-13-2023 15:00-0400 SaO2% (BldA) [Mass fraction] 96 % ECG TECHNICIANMj Aguirre Angreece Work Phone: [facility] 09-13-2023 15:00-0400 Systolic blood pressure 140 mm[Hg] ECG TECHNICIANMj Funes Work Phone: [facility] 09-13-2023 11:40-0400 Inhaled oxygen flow rate 2 L/min ECG TECHNICIANMj Funes Work Phone: [facility] 09-13-2023 10:39-0400 Body height 175.26 cm ECG TECHNICIANMj Funes Work Phone: [facility] 09-13-2023 10:39-0400 Body weight 69.85 kg ECG TECHNICIANMj Funes Work Phone: [facility] 09-09-2023 11:35-0400 Body height 175.26 cm ECG TECHNICIANMj Funes Work Phone: [facility] 09-09-2023 11:35-0400 Body mass index (BMI) [Ratio] 22.7 kg/m2 ECG TECHNICIANMj Funes Work Phone: [facility] 09-09-2023 11:35-0400 Body temperature 97.4 [degF] ECG TECHNICIAN Kota Funes Work Phone: [facility] 09-09-2023 11:35-0400 Body weight 69.85 kg ECG TECHNICIANMj Funes Work Phone: [facility] 09-09-2023 11:35-0400 Diastolic blood pressure 50 mm[Hg] ECG TECHNICIANMj Funes Work Phone: [facility] 09-09-2023 11:35-0400 Heart rate 73 /min ECG TECHNICIANMj Funes Work Phone: [facility] 09-09-2023 11:35-0400 SaO2% (BldA) [Mass fraction] 98 % ECG TECHNICIANMj Funes Work Phone: [facility] 09-09-2023 11:35-0400 Systolic blood pressure 100 mm[Hg] ECG TECHNICIANMj Funes Work Phone: [facility] 09-09-2023 08:46-0400 Body height 175.26 cm ECG TECHNICIAN Kota Funes Work Phone: [facility] 09-09-2023 08:46-0400 Body mass index (BMI) [Ratio] 22.7 kg/m2 ECG TECHNICIAN Kota Anglim Work Phone: [facility] 09-09-2023 08:46-0400 Body weight 69.85 kg ECG TECHNICIAN Kota Anglim Work Phone: [facility] 09-09-2023 08:31-0400 Body temperature 97.5 [degF] ECG TECHNICIAN Kota Anglim Work Phone: [facility] 09-09-2023 08:31-0400 Diastolic blood pressure 69 mm[Hg] ECG TECHNICIAN Kota Anglim Work Phone: [facility] 09-09-2023 08:31-0400 Heart rate 64 /min ECG TECHNICIAN Kota Anglim Work Phone: [facility] 09-09-2023 08:31-0400 Respiratory rate 18 /min ECG TECHNICIAN Kota Anglim Work Phone: [facility] 09-09-2023 08:31-0400 Systolic blood pressure 115 mm[Hg] ECG TECHNICIAN Kota Anglim Work Phone: [facility] 08-28-2023 16:09-0500 Diastolic blood pressure 85 mm[Hg] ECG TECHNICIAN Kota Anglim Work Phone: [facility] 08-28-2023 16:09-0500 Heart rate 70 /min ECG TECHNICIAN Kota Anglim Work Phone: [facility] 08-28-2023 16:09-0500 Respiratory rate 20 /min ECG TECHNICIAN Kota Anglim Work Phone: [facility] 08-28-2023 16:09-0500 SaO2% (BldA) [Mass fraction] 100 % ECG TECHNICIAN Kota Anglim Work Phone: [facility] 08-28-2023 16:09-0500 Systolic blood pressure 185 mm[Hg] ECG TECHNICIAN Kota Anglim Work Phone: [facility] 08-28-2023 14:29-0500 Body height 175.26 cm IAIN Funes Work Phone: [facility] 08-28-2023 14:29-0500 Body temperature 97.6 [degF] IAIN Funes Work Phone: [facility] 08-28-2023 14:29-0500 Body weight 69.85 kg ECG TECHNICIANMj Funes Work Phone: [facility] 05-24-2023 14:00-0500 Body height 170.18 cm Tondra Mapus Other [facility] 05-24-2023 14:00-0500 Body mass index (BMI) [Ratio] 27.56 kg/m2 Tondra Mapus Other [employer] [facility] [employer] Other 05-24-2023 14:00-0500 Body weight 79.83 kg Tondra Mapus Other [facility] 05-24-2023 14:00-0500 Diastolic blood pressure 84 mm[Hg] Tondra Mapus Other [facility] 05-24-2023 14:00-0500 Respiratory rate 18 /min Tondra Mapus Other [facility] Other 05-24-2023 14:00-0500 SaO2% (BldA) [Mass fraction] 100 % Tondra Mapus Other [facility] Other 05-24-2023 14:00-0500 Systolic blood pressure 148 mm[Hg] Tondra Mapus Other [facility] 02-08-2023 14:30-0400 Body height 170.18 cm Tondra Mapus Other [facility] Other 02-08-2023 14:30-0400 Body mass index (BMI) [Ratio] 27.33 kg/m2 Tondra Mapus Other [facility] Other 02-08-2023 14:30-0400 Body weight 79.15 kg Tondra Mapus Other [facility] Other 02-08-2023 14:30-0400 Diastolic blood pressure 92 mm[Hg] Tondra Mapus Other [facility] Other 02-08-2023 14:30-0400 Respiratory rate 18 /min Tondra Mapus Other [facility] Other 02-08-2023 14:30-0400 SaO2% (BldA) [Mass fraction] 98 % Tondra Mapus Other [facility] Other 02-08-2023 14:30-0400 Systolic blood pressure 172 mm[Hg] Tondra Mapus Other [facility] Other 10-21-2022 15:15-0400 Body height 170.18 cm Tondra Mapus Other [facility] Other 10-21-2022 15:15-0400 Body mass index (BMI) [Ratio] 26.89 kg/m2 Tondra Mapus Other [facility] Other 10-21-2022 15:15-0400 Body weight 77.88 kg Tondra Mapus Other [facility] Other 10-21-2022 15:15-0400 Diastolic blood pressure 92 mm[Hg] Tondra Mapus Other [facility] Other 10-21-2022 15:15-0400 Respiratory rate 18 /min Tondra Mapus Other [facility] Other 10-21-2022 15:15-0400 SaO2% (BldA) [Mass fraction] 97 % Tondra Mapus Other [facility] Other 10-21-2022 15:15-0400 Systolic blood pressure 161 mm[Hg] Tondra Mapus Other [facility] Other 07-21-2022 13:42-0500 Body height 176.5 cm Moise Ramos MD Work Phone: [facility] [place] 07-21-2022 13:42-0500 Body temperature 97.59 [degF] Moise Ramos MD Work Phone: [facility] [place] 07-21-2022 13:42-0500 Body weight 76.11 kg Moise Ramos MD Work Phone: [facility] [place] 07-21-2022 13:42-0500 Diastolic blood pressure 64 mm[Hg] Moise Ramos MD Work Phone: [facility] [place] 07-21-2022 13:42-0500 Heart rate 58 /min Moise Ramos MD Work Phone: [facility] [place] 07-21-2022 13:42-0500 Respiratory rate 18 /min Moise Ramos MD Work Phone: [facility] [place] 07-21-2022 13:42-0500 SaO2% (BldA) [Mass fraction] 97 % Moise Ramos MD Work Phone: [facility] [place] 07-21-2022 13:42-0500 Systolic blood pressure 107 mm[Hg] Moise Ramos MD Work Phone: [facility] [place] 07-20-2022 14:00-0500 Body height 170.18 cm Tondra Mapus Other [facility] Other 07-20-2022 14:00-0500 Body mass index (BMI) [Ratio] 26.39 kg/m2 Tondra Mapus Other [facility] Other 07-20-2022 14:00-0500 Body weight 76.43 kg Tondra Mapus Other [facility] Other 07-20-2022 14:00-0500 Diastolic blood pressure 77 mm[Hg] Tondra Mapus Other [facility] Other 07-20-2022 14:00-0500 Respiratory rate 18 /min Tondra Mapus Other [facility] Other 07-20-2022 14:00-0500 SaO2% (BldA) [Mass fraction] 97 % Tondra Mapus Other [facility] Other 07-20-2022 14:00-0500 Systolic blood pressure 147 mm[Hg] Tondra Mapus Other [facility] Other 05-11-2022 14:13-0500 Diastolic blood pressure 82 mm[Hg] ECG TECHNICIAN Kota Anglim Work Phone: [facility] 05-11-2022 14:13-0500 Heart rate 57 /min ECG TECHNICIAN Kota Anglim Work Phone: [facility] 05-11-2022 14:13-0500 Respiratory rate 16 /min ECG TECHNICIAN Kota Anglim Work Phone: [facility] 05-11-2022 14:13-0500 SaO2% (BldA) [Mass fraction] 96 % ECG TECHNICIAN Kota Anglim Work Phone: [facility] 05-11-2022 14:13-0500 Systolic blood pressure 147 mm[Hg] IAIN Funes Work Phone: [facility] 05-11-2022 13:28-0500 Inhaled oxygen flow rate 8 L/min IAIN Funes Work Phone: [facility] 05-11-2022 13:04-0500 Body height 175.26 cm ECG TECHNICIANMj Funes Work Phone: [facility] 05-11-2022 13:04-0500 Body mass index (BMI) [Ratio] 24.8 kg/m2 ECG TECHNICIANMj Funes Work Phone: [facility] 05-11-2022 13:04-0500 Body weight 76.3 kg ECG TECHNICIANMj Funes Work Phone: [facility] 05-11-2022 11:08-0500 Body temperature 97.5 [degF] IAIN Funes Work Phone: [facility] 03-26-2022 15:15-0400 Body height 170.18 cm Delores Carus Other [facility] Other 03-26-2022 15:15-0400 Body mass index (BMI) [Ratio] 27.25 kg/m2 Tondra Mapus Other [facility] Other 03-26-2022 15:15-0400 Body weight 78.93 kg Tondra Mapus Other [facility] Other 03-26-2022 15:15-0400 Diastolic blood pressure 67 mm[Hg] Tondra Mapus Other [facility] Other 03-26-2022 15:15-0400 Respiratory rate 18 /min Tondra Mapus Other [facility] Other 03-26-2022 15:15-0400 SaO2% (BldA) [Mass fraction] 99 % Tondra Mapus Other [facility] Other 03-26-2022 15:15-0400 Systolic blood pressure 111 mm[Hg] Tondra Mapus Other [facility] Other 08-26-2021 10:15-0500 Body height 170.18 cm Tondra Mapus Other [facility] Other 08-26-2021 10:15-0500 Body mass index (BMI) [Ratio] 28.5 kg/m2 Tondra Mapus Other [facility] Other 08-26-2021 10:15-0500 Body weight 82.56 kg Tondra Mapus Other [facility] Other 08-26-2021 10:15-0500 Diastolic blood pressure 78 mm[Hg] Tondra Mapus Other [facility] Other 08-26-2021 10:15-0500 Respiratory rate 16 /min Tondra Mapus Other [facility] Other 08-26-2021 10:15-0500 SaO2% (BldA) [Mass fraction] 99 % Tondra Mapus Other [facility] Other 08-26-2021 10:15-0500 Systolic blood pressure 125 mm[Hg] Tondra Mapus Other [facility] Other 07-28-2021 12:00-0500 Body height 170.18 cm Tondra Mapus Other [facility] Other 07-28-2021 12:00-0500 Body mass index (BMI) [Ratio] 30.44 kg/m2 Tondra Mapus Other [facility] Other 07-28-2021 12:00-0500 Body weight 88.18 kg Tondra Mapus Other [facility] Other 07-28-2021 12:00-0500 Diastolic blood pressure 74 mm[Hg] Tondra Mapus Other [facility] Other 07-28-2021 12:00-0500 Respiratory rate 18 /min Tondra Mapus Other [facility] Other 07-28-2021 12:00-0500 SaO2% (BldA) [Mass fraction] 98 % Tondra Mapus Other [facility] Other 07-28-2021 12:00-0500 Systolic blood pressure 142 mm[Hg] Tondra Mapus Other [facility] Other 07-14-2021 12:00-0500 Body height 170.18 cm Tondra Mapus Other [facility] Other 07-14-2021 12:00-0500 Body mass index (BMI) [Ratio] 29.29 kg/m2 Tondra Mapus Other [facility] Other 07-14-2021 12:00-0500 Body weight 84.82 kg Tondra Mapus Other [facility] Other 07-14-2021 12:00-0500 Diastolic blood pressure 77 mm[Hg] Tondra Mapus Other [facility] Other 07-14-2021 12:00-0500 Respiratory rate 20 /min Tondra Mapus Other [facility] Other 07-14-2021 12:00-0500 SaO2% (BldA) [Mass fraction] 98 % Tondra Mapus Other [facility] Other 07-14-2021 12:00-0500 Systolic blood pressure 132 mm[Hg] Tondra Mapus Other [facility] Other Encounters Encounter Date Encounter Type Care Provider Facility Start: 11-09-2023 End: 11-09-2023 ambulatory JO Goodrich CAROLINA [facility] Start: 11-07-2023 End: 11-07-2023 Emergency department patient visit [facility] Start: 11-04-2023 End: 11-05-2023 Emergency department patient visit YUSRA KOENIG [facility] Start: 11-03-2023 End: 11-03-2023 ambulatory VENUS RAMOS [facility] Start: 10-29-2023 End: 10-30-2023 Emergency department patient visit PADMA BLAIR [facility] Start: 10-29-2023 End: 10-29-2023 Emergency department patient visit KOTA Watts [facility] Start: 10-08-2023 End: 10-09-2023 ambulatory KOTA A [facility] Start: 10-07-2023 End: 10-07-2023 ambulatory Kota Funes Facility:[facility] Start: 10-07-2023 End: 10-07-2023 ambulatory ECG TECHNICIAN Kota Funes Work Phone: [facility] Work Phone: Start: 10-07-2023 End: 10-07-2023 Patient encounter procedure ECG TECHNICIAN Kota Funes Work Phone: [facility] Work Phone: Start: 09-30-2023 End: 09-30-2023 ambulatory Kota Funes Facility:[facility] Start: 09-30-2023 End: 09-30-2023 ambulatory ECG TECHNICIAN Kota Funes Work Phone: [facility] Work Phone: Start: 09-30-2023 End: 09-30-2023 Discharged Recurring ECG TECHNICIAN Kota Funes Work Phone: [facility] [place] Work Phone: Start: 09-30-2023 Registered Recurring ECG TECHNICIAN Edilberto watts Valdemarreece Work Phone: [facility] [place] Work Phone: Start: 09-28-2023 End: 09-29-2023 ambulatory [facility] Start: 09-28-2023 End: 09-28-2023 ambulatory [facility] Start: 09-28-2023 End: 09-28-2023 Office consultation new/estab patient 40 min Jo Veronica MD Work Phone: [facility] Comment on above: Urinary retention (P rimary Dx) Start: 09-13-2023 End: 09-13-2023 Emergency department patient visit [facility] Start: 09-13-2023 End: 09-13-2023 ambulatory Kota Funes Facility:[facility] Start: 09-13-2023 Non-patient / Non-visit ECG TECHNICIAN Nu Aldrichreece Work Phone: [facility] V[facility] Surgery Work Phone: Start: 09-13-2023 End: 09-13-2023 Admission to same day surgery center ECG TECHNICIANMj Funes Work Phone: [facility]Inter[facility] Work Phone: Start: 09-13-2023 End: 09-13-2023 ambulatory IAIN Funes Work Phone: [facility] Work Phone: Start: 09-09-2023 End: 09-09-2023 ambulatory IAIN Funes Work Phone: [facility] Work Phone: Start: 09-09-2023 End: 09-09-2023 Patient encounter procedure IAIN Funes Work Phone: [facility] Work Phone: Start: 09-09-2023 Registered Recurring IAIN Edilberto Funes Work Phone: [facility] [place] Work Phone: Start: 08-28-2023 End: 08-28-2023 Emergency department patient visit Jose Enrique Almendarez Facility:[facility] Start: 08-28-2023 End: 08-28-2023 Emergency department patient visit IAIN Funes Work Phone: [facility]-Emergency Room Work Phone: Start: 08-26-2023 End: 08-26-2023 ambulatory Kota Shantel Facility:[facility] Start: 08-26-2023 End: 08-26-2023 Patient encounter procedure IAIN Funes Work Phone: [facility] [place] Work Phone: Start: 07-27-2023 Telephone encounter Marcella Iglesias [facility] Comment on above: referral Start: 07-01-2023 End: 07-01-2023 ambulatory AMILCAR DONALDSONLelo [facility] Other Start: 07-01-2023 Telephone encounter Tondra Jocelineus [facility] Start: 06-26-2023 End: 06-30-2023 Emergency department patient visit KIRILL MADRID [facility] Start: 06-26-2023 End: 06-30-2023 Evaluation and management of inpatient KOTA Watts [facility] Start: 05-27-2023 End: 05-27-2023 ambulatory UNIQUE SWIFT Not Available Start: 05-24-2023 End: 05-24-2023 Discharged Recurring IAIN Funes Work Phone: [facility] Work Phone: Start: 05-24-2023 (DM) Diabetes Tondra Emiliano [facility] Start: 05-24-2023 End: 05-25-2023 ambulatory IAIN Funes Work Phone: [facility] Other Start: 05-24-2023 End: 05-24-2023 Patient encounter procedure IAIN Funes Work Phone: [facility] Work Phone: Start: 05-18-2023 End: 05-18-2023 ambulatory UNIQUE SWIFT Not Available Start: 03-31-2023 End: 03-31-2023 ambulatory Tondra Mapus Other [facility] Other Start: 03-31-2023 Telephone encounter Tondra Jocelineus [facility] Start: 02-08-2023 (DM) Diabetes Tondra Jocelineus [facility] Start: 02-08-2023 End: 02-08-2023 ambulatory Tondra Mapus Other [facility] Other Start: 12-23-2022 End: 12-23-2022 ambulatory Tondra Mapus Other [facility] Other Start: 12-23-2022 Telephone encounter Tondra Mapus [facility] Start: 10-21-2022 (DM) Diabetes Tondra Mapus [facility] Start: 10-21-2022 End: 10-21-2022 ambulatory Tondra Mapus Other [facility] Other Start: 08-30-2022 End: 08-30-2022 ambulatory Tondra Mapus Other [facility] Other Start: 08-30-2022 Telephone encounter Tondra Mapus [facility] Start: 07-21-2022 End: 07-21-2022 ambulatory Moise Ramos MD Work Phone: Hematology/Oncology Comment on above: 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) Start: 07-21-2022 End: 07-21-2022 Patient encounter procedure Moise Rmaos MD Work Phone: [place] Start: 07-20-2022 (DM) Diabetes Tondra Mapus [facility] Start: 07-20-2022 End: 07-20-2022 ambulatory Tondra Mapus Other [facility] Other Start: 05-12-2022 End: 05-12-2022 ambulatory Tondra Mapus Other [facility] Other Start: 05-12-2022 Telephone encounter Tondra Mapus [facility] Start: 05-11-2022 End: 05-11-2022 Admission to same day surgery center IAIN Funes Work Phone: [facility] [place] Start: 05-11-2022 End: 05-11-2022 ambulatory IAIN Funes Work Phone: [facility] Work Phone: Start: 05-07-2022 End: 05-07-2022 ambulatory IAIN Funes Work Phone: [facility] Work Phone: Start: 05-07-2022 End: 05-07-2022 Patient encounter procedure IAIN Funes Work Phone: [id number] Start: 04-08-2022 End: 04-08-2022 ambulatory IAIN Funes Work Phone: [facility] Work Phone: Start: 04-08-2022 End: 04-08-2022 Patient encounter procedure IAIN Funes Work Phone: [facility] Start: 03-26-2022 Registered Recurring IAIN Funes Work Phone: [facility] Start: 03-26-2022 (DM) Diabetes Tondra Emiliano [facility] Start: 03-26-2022 End: 03-26-2022 ambulatory Tondra Mapus Other [facility] Other Start: 03-09-2022 End: 03-09-2022 ambulatory Tondra Mapus Other [facility] Other Start: 03-09-2022 Telephone encounter Tondra Emiliano [facility] Start: 01-29-2022 End: 01-29-2022 ambulatory Tondra Mapus Other [facility] Other Start: 01-29-2022 Telephone encounter Tondra [facility]iliano [facility] [facility] Start: 12-09-2021 (Bandsaw Operator) Bandsaw Operator [facility] Start: 12-09-2021 End: 12-09-2021 ambulatory Marcella Christian [facility] Other Start: 11-19-2021 End: 11-19-2021 ambulatory Tondra Mapus Other [facility] Other Start: 11-19-2021 Telephone encounter Tondra Mapus [facility] Start: 09-10-2021 (Bandsaw Operator) Bandsaw Operator Marcella Wesley [facility] Start: 09-10-2021 End: 09-10-2021 ambulatory Marcella Christian Other [facility] Other Start: 08-29-2021 End: 08-29-2021 ambulatory Tondra Mapus Other [facility] Other Start: 08-29-2021 Telephone encounter Tondra Mapus [facility] Start: 08-26-2021 (DM) [facility] Start: 08-26-2021 End: 08-26-2021 ambulatory Tondra Mapus Other [facility] Other Start: 08-26-2021 Telephone encounter Tondra Mapus [facility] Start: 08-06-2021 (RD) Utilization Management Rn Marcella Christian [facility] Start: 08-06-2021 End: 08-06-2021 ambulatory Marcella Christian Other [facility] Other Start: 08-06-2021 Telephone encounter Janine Wesley [facility] Start: 07-28-2021 End: 07-28-2021 ambulatory Tondra Mapus Other [facility] Other Start: 07-28-2021 Nursing evaluation o f patient and report Tondra Mapus [facility] Start: 07-14-2021 End: 07-14-2021 ambulatory Tondra Mapus Other [facility] Other Start: 07-14-2021 [facility] new patient Delores Cummings [facility] Procedures Date Procedure Procedure Detail Performing Clinician Start: 11-03-2023 Follow-up visit Follow-up VENUS RAMOS Start: 10-07-2023 Ankle brachial pressure index ECG TECHNICIAN Kota Funes Work Phone: Start: 09-22-2023 Investigation of transfusion reaction ECG TECHNICIAN Kota Shantel Work Phone: Start: 09-13-2023 IR Angiogram w/TLA/Stent Left Leg (Bilateral) ECG TECHNICIAN Kota Shantel Work Phone: Start: 09-13-2023 IR Angiogram w/TLA/Stent Left Leg (Right) ECG TECHNICIAN Kota Shantel Work Phone: Start: 08-28-2023 Urine culture ECG TECHNICIAN Kota Shantel Work Phone: Start: 08-26-2023 Pulse volume recorder pneumoplethysmography ECG TECHNICIAN Kota Shantel Work Phone: Start: 08-19-2023 Plain X-ray of bilateral calcanei ECG TECHNICIAN Kota Funes Work Phone: Start: 05-11-2022 Colonoscopy ECG TECHNICIAN Kota Shantel Work Phone: Start: 04-08-2022 Dual energy X-ray absorptiometry ECG TECHNICIAN Kota Funes Work Phone: Start: 01-28-2022 Adult depression screening assessment Marcella Jones H/O: surgery Status post hardware removal IAIN Kota Shantel Work Phone: SARS Antigen (LFIA) ECG TECHNICIANMj Moffett ra [employer] Work Phone: Plan of Treatment Date Care Activity Detail Author Start: 07-21-2025 DIABETES SCREEN DIABETES SCREEN [facility] Start: 09-27-2024 Adult BMI Screening Adult BMI Screen ing [facility] Start: 09-27-2024 Tobacco Screening Tobacco Screening [facility] Start: 06-29-2024 Adult BMI Screening Adult BMI Screen ing [facility] Start: 06-28-2024 Tobacco Screening Tobacco Screening [facility] Start: 02-27-2024 Influenza vaccination Influenza Vacc ine [facility] Start: 11-03-2023 End: 11-03-2023 Patient encounter procedure 11/03/2023 9:45 AM EDT Office Visit [facility] [address] [place] [address] [phone] Venus Ramos PA [address] [place] [id number] [facility] Start: 10-08-2023 End: 10-08-2023 ambulatory 10/08/2023 12:30 PM EDT Support Visit [facility] [address] [place] [phone] Jesus Garcia Jr., MD [address] [place] [id number] [facility] Start: 10-07-2023 Ankle brachial press ure index [facility] Start: 09-13-2023 [facility] Start: 02-26-2023 COVID-19 Vaccine ( season) COVID-19 Vaccine ( season) [facility] Start: 02-26-2023 Influenza vaccination Influenza Vacc ine [facility] Start: 01-28-2023 Depression Screening Depression Scre ening [facility] Start: 06-28-2022 ADVANCE DIRECTIVE DISCUSSION ADVANCE DIRECTIVE DISCUSSION [facility] Start: 06-28-2022 DEPRESSION ASSESSMENT DEPRESSION ASS ESSMENT [facility] Start: 05-11-2022 End: 05-11-2022 [facility] Start: 02-26-2022 Influenza vaccination INFLUENZA (#1) [facility] Start: 06-24-2021 COVID-19 VACCINE (5 - Booster for Pfizer series) COVID-19 VACCINE (5 - Booster for Pfizer series) [facility] Start: 02-19-2021 PNEUMOCOCCAL: 65+ (2 - PCV) PNEUMOCOCCAL: 65+ (2 - PCV) [facility] Start: 2013 Fall Risk Screening Fall Risk Screen ing [facility] Start: 1998 SHINGRIX VACCINE (1 of 2) SHINGRIX VACCINE (1 of 2) [facility] Start: 1993 COLOGUARD (FIT-DNA) COLOGUARD (FIT-D NA) [facility] Start: 1993 Colonoscopy COLONOSCOPY [facility] Start: 1993 COLORECTAL CANCER SCREENING COLORECTAL CANCER SCREENING [facility] Start: [address] COLONOGRAPHY [facility] Start: 1993 FECAL OCCULT BLOOD FECAL OCCULT BLOO D [facility] Start: 1993 SIGMOIDOSCOPY SIGMOIDOSCOPY [facility] Start: 10-28-1983 LIPID SCREEN LIPID SCREEN [facility] Start: 10-28-1967 Administration of varicella zoster vaccine Zoster (Shingles) Vaccine (1 of 2) [facility] Start: 10-28-1967 DTaP,Tdap and Td Vaccines (1 - Tdap) DTaP,Tdap and Td Vaccines (1 - Tdap) [facility] Start: 10-28-1967 Urine microalbumin profile DTAP,TDAP,TD (1 - Tdap) [facility] Start: 1966 Adult BMI Follow Up Plan Adult BMI Follow Up Plan [facility] Start: 1966 HEPATITIS C SCREENING HEPATITIS C SC M[place]HAVI [facility] Start: 1948 Medicare Annual Well ness Visit Medicare Annual Wellness Visit [facility] End: 09-27-2024 Bacteria identified in Urine by Culture Urine Culture Microbiology Routine Urinary retention 1 Occurrences starting 09/28/2023 until 09/27/2024 [facility] Work Phone: Comment on above: 1 Occurrences starti ng 09/28/2023 until 09/27/2024 Bacteria identified in Urine by Culture Urine Culture Microbiology Routine Urinary retention 09/28/2023 10:13 PM EDT [facility] Patient Education [facility] Work Phone: Patient referral [facility] Work Phone: [facility] Immunizations Immunization Date Immunization Notes Care Provider Fa cili 04-28-2021 influenza nasal, unspecified formulation Moise Ramos MD Work Phone: [facility] 04-28-2021 influenza virus vacc ine, unspecified formulation [facility] 04-21-2021 influenza (aIIV4) vaccine, age 65+ yr, quadrivalent, PF (FLUAD QUADRIVALENT) Moise Ramos MD Work Phone: [facility] 10-10-2020 COVID-19 mRNA, Comir edmundo (Pfizer) ECG TECHNICIAN Kota [facility] Work Phone: [facility] 09-19-2020 COVID-19 mRNA, Comir edmundo (Pfizer) ECG TECHNIC[facility]j [facility] Work Phone: [facility] 04-02-2020 influenza, injectabl e, quadrivalent, contains preservative Moise Ramos MD Work Phone: [facility] 02-20-2020 pneumococcal polysaccharide vaccine, 23 valent Moise Ramos MD Work Phone: [facility] 04-11-2019 influenza, injectabl e, quadrivalent, preservative free Moise Ramos MD Work Phone: [facility] 04-25-2018 influenza, injectabl e, quadrivalent, preservative free Moise Ramos MD Work Phone: [facility] 03-17-2018 influenza, high dose seasonal, preservative-free Moise Ramos MD Work Phone: [facility] 04-28-2017 influenza, injectabl e, quadrivalent, preservative free Moise Ramos MD Work Phone: [facility] 04-28-2017 pneumococcal polysaccharide vaccine, 23 valent Moise Ramos MD Work Phone: [facility] 04-08-2015 influenza, seasonal, injectable, preservative free Moise Ramos MD Work Phone: [facility] 05-05-2013 influenza, seasonal, injectable Moise Ramos MD Work Phone: [facility] Payers Date Payer Category Payer Medicaid [id number] 2023 [place] [id number] 2023-Present [phone] [address] [place] [address] [id number] 2021 Self-pay [id number] 2014 Private Health Insurance [id number] 2014 Unknown [id number] [id number] 2013 Medicare [id number] 2.16.840.1.708702.19 2013 Medicare [id number]. 1.13.159.2.7 .[id number] 1948 Unknown [id number] 2.16.840.1.224014.3.579.2.1 259 1948 Unknown [id number] 2.16.840.1.242022.3.579.2.1 259 1948 Unknown [id number] 2.16.840.1.061533.3.579.2.1 286 1948 Unknown [id number] 2.16.840.1.623420.3.579.2.1 286 1948 Unknown [id number] 2.16.840.1.636642.3.579.2.1 286 1948 Unknown [id number] 2.16.840.1.243736.3.579.2.1 286 1948 Unknown [id number] 2.16.840.1.289957.3.579.2.1 286 1948 Unknown [id number] 2.16.840.1.951300.3.579.2.1 286 1948 Unknown [id number] 2.16.840.1.347793.3.579.2.1 286 1948 Unknown [id number] 2.16.840.1.067010.3.579.2.1 286 1948 Unknown [id number] 2.16.840.1.749358.3.579.2.1 286 1948 Unknown [id number] 2.16.840.1.198173.3.579.2.1 286 1948 Unknown [id number] 2.16.840.1.461808.3.579.2.1 286 1948 Unknown [id number] 2.16.840.1.471943.3.579.2.1 1948 Unknown [id number] 2.16.840.1.610422.3.579.2.1 1948 Unknown [id number] 2.16.840.1.518662.3.579.2.1 1948 Unknown [id number] 2.16.840.1.379350.3.579.2.1 1948 Unknown [id number] 2.16.840.1.328141.3.579.2.1 286 Unknown [id number] 2.16.840.1.858998.3.579.2.5 31 Unknown [id number] 2.16.840.1.705161.3.579.2.5 31 Unknown [id number] 2.16.840.1.118450.3.579.2.5 31 Unknown [id number] 2.16.840.1.765631.3.579.2.5 31 Unknown [id number] 2.16.840.1.257480.3.579.2.5 31 Unknown [id number] 2.16.840.1.553006.3.579.2.5 31 Social History Date Type Detail Facility Start: 06-26-2023 End: 09-28-2023 Sex Assigned At [facility] Start: 11-07-2020 End: 09-30-2023 Tobacco smoking status NHIS Ex-smoker (finding) [facility] Start: 1950 Sex Assigned At Male [facility] Start: 05-12-2016 Tobacco smoking stat us NHIS Never smoked tobacco [facility] Start: 05-12-2016 End: 09-28-2023 Tobacco use and exposure Smokeless tobacco non-user [facility] Start: 07-21-2022 Alcohol intake Current drinke r of alcohol (finding) [facility] Start: 1950 Sex Assigned At Not on file [facility] History of tobacco use Current smoker [facility] [employer] [facility] Start: 06-28-2023 End: 09-28-2023 Alcohol intake Current non-drinker of alcohol (finding) [facility] Start: 06-26-2023 End: 09-28-2023 History of Social function [facility] Has the [employer], or [employer] threatened to shut off services in your home in past 12Mo No [facility] Marital Status Not on file [facility] How often to you hav e a drink containing alcohol? Never [facility] Do you feel stress - tense, restless, nervous, or anxious, or unable to sleep at night because your mind is troubled all the time - these days [OSQ] Only a little [facility] [employer] [facility] Medical Equipment Procedure Code Equipment Code Equipment Origin al Text Equipment Identifier Dates ORIF, fracture, ankle Orthopaedic bone screw, non-bioabsorbable, non-sterile ()[id number] FDA Start: 08-08-2020 ORIF, fracture, ankle Orthopaedic bone screw, non-bioabsorbable, non-sterile ()[id number] FDA Start: 08-08-2020 ORIF, fracture, ankle Orthopaedic bone screw, non-bioabsorbable, non-sterile ()[id number] FDA Start: 08-08-2020 ORIF, fracture, ankle Orthopaedic bone screw, non-bioabsorbable, non-sterile ()[id number] FDA Start: 08-08-2020 ORIF, fracture, ankle Orthopaedic bone screw, non-bioabsorbable, non-sterile ()[id number] FDA Start: 08-08-2020 ORIF, fracture, ankle Orthopaedic fixation plate, non-bioabsorbable, sterile ()[id number] FDA Start: 08-08-2020 ORIF, fracture, ankle Orthopaedic bone screw, non-bioabsorbable, non-sterile ()[id number] FDA Start: 08-08-2020 ORIF, fracture, ankle Orthopaedic bone screw, non-bioabsorbable, non-sterile ()[id number] FDA Start: 08-08-2020 BD Pen Needle Na no U/F 32G X 4 MM Goals Date Patient Goal Desired Activity /State Personal health goal Comment on above: Formatting of this n ote might be different from the original. Evaluation of progress towards goal: In progress: Snf placement for rehab. Clinical Notes 01-07-2021 to 09-30-2023 Note Date & Type Note Facility 09-30-2023 Progress note Note Date/Time September 30, 2023 11:15am [facility] [address] [place] [address] Wound Center Provider Note Signed Patient: Gagandeep Ahn MR#: [id number] : 1950 Acct:[id number] Age/Sex: 72 / M Copies to: Kota Funes APRN, YING Vasquez DPM, MS~ HPI Date of Visit Date of Visit: Date of Service: 09/30/2023 Time of Service: 11:09 Narrative HPI: This is a 72-year-old male who was referred to me by the nurse practitioner for an ulceration on the posterior aspect of his right heel. The right leg was revascularized on 09/13/[address] Bee. Patient continues to have pain significantly in that right foot and right ankle area. Patient is currently having the dressings changed daily. Patient was referred to me for possible treatment options. Subjective Pain Right Heel: Pain Description: Intermittent Pain Intensity: 10 Pain Management Techniques Other/Comment: 09/22/2023 not as bad Left Heel: Pain Description: Intermittent Pain Intensity: 0 Pain Management Techniques Other/Comment: 09/22/2023 not as bad Wound/Ulcer History When did wound start?: June 2023 right heel ulcer Mode of Arrival/ Rn Chronic: Family Assistive Device Used Today: Wheelchair Appetite Description: Within Normal Limits Who helps w/ dressing change?: Home Health Why Do You Need Help?: Can't Reach Ulcer, Limited mobility, Unsafe leave home byself and Taxing effort to leave home Smoking Status: Former smoker [facility] Medical History Hypertension Depression Colon cancer Vitamin D deficiency Osteopenia 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 Insomnia Hypoglycemia associated with type 2 diabetes mellitus Glaucoma Diabetic neuropathy Depressive disorder Cataract Anxiety Ulcer of right heel Ulcer of left heel Osteoporosis Arthritis Kidney stones Restless legs syndrome Neuropathy Depression COPD (chronic obstructive pulmonary disease) Hyperlipemia Hypertension Diabetes Colon cancer Surgical History History of orthopedic surgery History of back surgery H/O exploratory laparotomy History of carpal tunnel surgery H/O colectomy Family History Father Cancer Brother Parkinson disease Sister Esophageal cancer Brother Diabetes Legacy FamHx Relation: Brother(s) Father Heart disease History of stroke Legacy FamHx Problem: Diagnosed with Stroke Family/Other Legacy FamHx Problem: 1 sister -cancer Mother History of stroke Legacy FamHx Problem: Diagnosed with Stroke Diabetes Sister Diabetes Cancer Legacy FamHx Problem: Diagnosed with Cancer Social History Smoking Status: Former smoker Tobacco Type: cigarettes Substance Use Type: None Grafts History of Graft History of Graft?: No Exam Physical Exam Vital Signs: Temp Pulse Resp BP O2 Del Method 97.3 F L 74 18 152/81 H Room Air 09/30/23 10:25 09/30/23 10:25 09/30/23 10:25 09/30/23 10:25 09/30/23 10:25 Lower/Upper Extremity Exam Vascular Exam-Edema Right Foot: Edema Type: None Left Foot: Edema Type: None Vascular Exam-Pulses Right Brachial: Pulse Assessment Method: NIBP Right Dorsalis Pedis: Pulse Assessment Method: Doppler Right Posterior Tibial: Pulse Assessment Method: Doppler Left Dorsalis Pedis: Pulse Assessment Method: Doppler Left Posterior Tibial: Pulse Assessment Method: Doppler Objective Meds/Allergies Home Medications gabapentin 300 mg capsule 300 mg PO TID 03/10/18 [History Confirmed 09/13/23] hydrochlorothiazide 12.5 mg tablet 25 mg PO DAILY 03/10/18 [History Confirmed 09/13/23] amlodipine 5 mg tablet 10 mg PO DAILY 03/31/19 [History Confirmed 09/13/23] losartan 100 mg tablet 50 mg PO QAM 03/31/19 [History Confirmed 09/13/23] metoprolol succinate 50 mg tablet,extended release 24 hr 50 mg PO DAILY 03/31/19[History Confirmed 09/13/23] docusate sodium 100 mg capsule (DOK) 100 mg PO BID 10/25/20 [History Confirmed 09/13/23] buspirone 10 mg tablet 10 mg PO DAILY 05/11/22 [History Confirmed 09/13/23] donepezil 5 mg tablet 5 mg PO DAILY 05/11/22 [History Confirmed 09/13/23] lamotrigine 25 mg tablet 25 mg PO DAILY 05/11/22 [History Confirmed 09/13/23] polyethylene glycol 1 ea miscellaneous DAILY PRN Constipation 05/11/22 [History Confirmed 09/13/23] prazosin 1 mg capsule 1 mg PO QHS 05/11/22 [History Confirmed 09/13/23] rosuvastatin 20 mg tablet 20 mg PO DAILY 05/11/22 [History Confirmed 09/13/23] semaglutide 1 mg/dose (2 mg/1.5 mL) subcutaneous pen injector (Ozempic) 1 mg subcut QWEEK 05/11/22 [History Confirmed 09/13/23] magnesium oxide-magnesium amino acid chelate 300 mg capsule (Magnesium (oxide/AAchelate)) 300 cap PO BID 08/19/23 [History Confirmed 09/13/23] metformin 1,000 mg tablet 1,000 mg PO BID 08/19/23 [History Confirmed 09/13/23] potassium chloride 20 mEq tablet,extended release (K-Tab) 20 meq PO DAILY 08/19/23 [History Confirmed 09/13/23] sertraline 100 mg tablet (Zoloft) 100 mg PO DAILY 08/19/23 [History Confirmed 09/13/23] insulin detemir U-100 100 unit/mL (3 mL) subcutaneous pen (Levemir FlexPen) 10 unit subcut QHS 09/09/23 [History Confirmed 09/22/23] insulin lispro 100 unit/mL subcutaneous pen (Humalog KwikPen (U-100) Insulin) 1 sliding scale dose subcut USEASDIRECTD 09/09/23 [History Confirmed 09/22/23] paroxetine HCl 30 mg tablet 30 mg PO DAILY 09/09/23 [History Confirmed 09/22/23] doxycycline hyclate 100 mg capsule 100 mg PO BID 14 days #28 caps 09/27/23 [Rx] cefadroxil 500 mg capsule 500 mg PO DAILY 09/30/23 [History Confirmed 09/30/23] hydrocodone 7.5 mg-acetaminophen 300 mg tablet 1 tab PO Q6HR PRN pain 5 days #20tabs 09/30/23 [Rx] Allergies No Known Allergies Allergy (Verified 09/09/23 11:25) Wound/Ulcer Right Heel: Type: Pressure/Injury Ulcer (w/diabetes/pvod) Pressure Ulcer/Injury Staging: Unstageable (at least stage 3) Bed Appearance: Beefy Red, Black Moist, Brown, [place], Yellow and Hypergranulation Percent of Wound Bed Granulated/Red: 80 Percent of Devitalized: 20 Length (cm): 3.9 Width (cm): 2.9 Depth (cm): 0.8 CM Sq: 11.310 Surrounding Tissue Appearance: [place] Surrounding Tissue Temp: Warm Drainage Amount: Moderate Drainage Description: Serosanguineous Drainage Odor: Foul Odor Lidocaine Applied Topically: 2% Jelly Chemical Cauterization: NA Left Heel: Type: Pressure/Injury Ulcer (w/diabetes/pvod) Pressure Ulcer/Injury Staging: Unstageable (at least stage 3) Bed Appearance: Black Dry and Yellow Percent of Wound Bed Granulated/Red: 0 Percent of Devitalized: 100 Length (cm): 1.5 Width (cm): 1.0 Depth (cm): 0.1 CM Sq: 1.500 Tunneling Position: 12:00 Tunneling Depth: 2 Surrounding Tissue Appearance: [place] Surrounding Tissue Temp: Warm Drainage Amount: None Drainage Description: Serosanguineous Drainage Odor: No Odor Lidocaine Applied Topically: 2% Jelly Results Microbiology: Microbiology - Results from entire visit 09/22/23 11:09 Heel, Right - Ulcer Aerobic Culture - Final Enterococcus faecalis Methicillin Resis Staph Aureus 09/22/23 11:09 Heel, Right - Ulcer Anaerobic Culture - Preliminary Bacteroides fragilis 09/22/23 11:09 Heel, Right - Ulcer Gram Stain - Final Additional Studies: ITS Impressions Calcaneus X-Ray 08/19/23 07:42 IMPRESSION: Mild soft tissue swelling. No subcutaneous air or radiodense foreign body. No acute bony involvement. Impression dictated by: Austyn Day M.D.08/19/2023 10:46 AM Dictation Location: [place] [address] Height: 5 ft 9 in Weight: 154 lb Body Mass Index: 22.7 Assessment/Plan Assessment/Plan (1) Pressure ulcer of right heel, stage 3: Code(s): L89.613 - Pressure ulcer of right heel, stage 3 Plan: A prescription for hydrocodone/acetaminophen 7.5 325 was sent to the facility for approximately 5 days worth to be taken 1 every 6 hours as needed for pain. This is just temporary until he can get in with Dr. Tidwellfully Dr. Strickland at the wound care clinic. Today upon examination it was noted that there is a tunnel extending from the most proximal ulcerated area along the tendon proximal. Patient has pain along this area. My concern is that if there is infection it may be going within the tendon sheath of the Achilles. I explained to the patient and his family that I do not do rear foot surgery and that I would like to refer to Dr. Strickland at the [place] wound care clinic or at his [facility] office for evaluation and treatment. We will continue with current wound care which would entail washing the area with Vashe followed by applying Iodoflex ABD and a pad and protect dressing daily. To the tunneling area we will attempt to coat with Iodoflex and pat gently is patient may not be able to tolerate packing. Call Dr. Strickland's office at the wound care clinic in [place] and they said they would review his case and get back with him. I told the patient patient's family that I will send my note today to Dr. Strickland so he can review. We called to see if he was actually taking the doxycycline that was ordered for him based on the culture results. The correction facility said that they received the order and have the pills however they did not have the order to take the medication. An order was sent today to begin taking the antibiotic as directed. 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 Time spent with patient Time Spent With Patient (min): 31 Dictated By: Beau Presley DPM DD/ [id number] Signed By: <Electronically signed by YING Presley> 09/30/23 1115 [facility] Work Phone: [phone] 831-492004-02-2024 History of Present illness Narrative* Jo Veronica MD - 09/28/2023 3:00 PM EDT Images from the original note were not included. [address] [place] [address] [address] [facility] [id number] Patient: Gagandeep Ahn Date of : 1950 Encounter Date: 09/28/2023 History of Present Illness: The patient is a 72 y.o. male, a new patient, and is here for further evaluation. He presents with his and daughter. The patient had COVID June 2023 and was hospitalized with that. During that was in urinary retention had a Ramos catheter placed. He reports he had a decreased urinary streamprior to that but no intervention for this. He subsequently was discharged to a rehab facility and now is living at assisted living. He has had an indwelling catheter since that time. There has been no attempt at a void trial. Was treated for UTI once early on with the catheter placement. Remote history of colon cancer treated with chemo and surgery but no radiation.. Chief Complaint: Summary of old records: Urinalysis today: No results for input(s): EXTPOCURCO , EXTPOCURCH , EXTPOCAPP , EXTPOCURBS , EXTPOCURBIL , EXTPOCUKET , EXTPOCUSPG , EXTPOCUHGB , EXTPOCUPRO , EXTPOCUURO , EXTPOCULEU , EXTPOCUNIT , EXTPOCUWBC , EXTPOCUBLD , EXTPOCURBC , EXTPOCUCRY , EXTPOCUBAC , EXTPOCUTREP , EXTPOCUPH , EXTPOCUL EE in the last 72 hours. Last BUN and creatinine: Lab Results Component Value Date BUN 21 06/30/2023 Lab Results Component Value Date CREATININE 1.02 06/30/2023 Last PSA: No results found for: PSA Lab Results Component Value Date PROSTATICSP 1.78 06/27/2023 Additional Lab/Culture results: None Imaging Reviewed during this Office Visit: None (Results were independently reviewed by physician and radiology report verified) Past Medical, Family, and Social History Update: The following portions of the patient's history were reviewed and updated as appropriate: allergies, current medications, past family history, past medical history, past social history, past surgicalhistory and problem list. Past Medical History: Diagnosis Date Asthma states he had it years ago, but I dont have any problems now Chest pain Colon cancer ([facility]) COPD (chronic obstructive pulmonary disease) ([facility]) Diabetes mellitus ([facility]) Glaucoma Hyperlipidemia Hypertension Past Surgical History: Procedure Laterality Date CARPAL TUNNEL RELEASE COLECTOMY PARTIAL / TOTAL EYE SURGERY Family History Problem Relation Age of Onset Diabetes Mother Heart attack Father Cancer Sister Current Outpatient Medications Medication Sig Dispense Refill acetaminophen (TYLENOL ARTHRITIS) 650 mg 8 hr tablet Take 2 tablets (1,300 mg total) by mouth every8 (eight) hours as needed for pain. amLODIPine (NORVASC) 2.5 mg tablet Take 1 tablet (2.5 mg total) by mouth in the morning. busPIRone (BUSPAR) 15 mg tablet Take 1 tablet (15 mg total) by mouth in the morning and 1 tablet (15 mg total) before bedtime. One tablet upon awakening and one tablet between 5pm-6pm. donepeziL (ARICEPT) 5 mg tablet Take 1 tablet (5 mg total) by mouth nightly. gabapentin (NEURONTIN) 300 mg capsule Take 1 capsule (300 mg total) by mouth 3 (three) times a day. hydroCHLOROthiazide (HYDRODIURIL) 25 mg tablet Take 1 tablet (25 mg total) by mouth daily. lamoTRIgine (LaMICtal) 25 mg tablet Take 2 tablets (50 mg total) by mouth in the morning. loperamide (IMODIUM A-D) 2 mg tablet Take 1 tablet (2 mg total) by mouth 4 (four) times a day as needed for diarrhea. losartan (COZAAR) 50 mg tablet Take 2 tablets (100 mg total) by mouth in the morning. magnesium oxide (MAGOX) 400 mg tablet Take 1 tablet (400 mg total) by mouth in the morning and 1 tablet (400 mg total) before bedtime. metFORMIN (GLUCOPHAGE) 1000 mg tablet Take 1 tablet (1,000 mg total) by mouth in the morning and 1 tablet (1,000 mg total) in the evening. Take with meals. metoprolol succinate XL (TOPROL XL) 25 mg 24 hr tablet Take 1 tablet (25 mg total) by mouth in the morning. PARoxetine (PAXIL) 30 mg tablet Take 1 tablet (30 mg total) by mouth in the evening. potassium chloride (MICRO-K) 8 mEq CR capsule Take 1 capsule (8 mEq total) by mouth in the morning and 1 capsule (8 mEq total) before bedtime. prazosin (MINIPRESS) 1 mg capsule Take 1 capsule (1 mg total) by mouth nightly. rosuvastatin (CRESTOR) 20 mg tablet Take 1 tablet (20 mg total) by mouth in the morning. semaglutide (OZEMPIC) 1 mg/dose (2 mg/1.5 mL) pen injector Inject 2 mg under the skin once a week. sertraline (ZOLOFT) 100 mg tablet Take 1 tablet (100 mg total) by mouth in the morning. ARIPiprazole (ABILIFY) 2 mg tablet Take 1 tablet (2 mg total) by mouth nightly. (Patient not taking: Reported on 09/28/2023) cefaDROXil (DURICEF) 500 mg capsule Take 1 capsule (500 mg total) by mouth in the morning and 1 capsule (500 mg total) before bedtime. Do all this for 7 days. 14 capsule 0 insulin detemir U-100 (LEVEMIR) 100 unit/mL injection Inject under the skin nightly. (Patient not taking: Reported on 09/28/2023) insulin lispro protamin-lispro (HumaLOG Mix 50-50 KwikPen) 100 unit/mL (50-50) insulin pen Inject under the skin 2 (two) times a day before meals. (Patient not taking: Reported on 09/28/2023) tamsulosin (FLOMAX) 0.4 mg capsule Take 1 capsule (0.4 mg total) by mouth nightly for 30 days. 30 capsule 0 No current facility-administered medications for this visit. (All medications reviewed and updated by provider since last office visit or hospitalization) Allergies: Patient has no known allergies. Tobacco History: Social History Tobacco Use Smoking Status Former Smokeless Tobacco Never (If patient a smoker, smoking cessation counseling offered) Social History: Social History Substance and Sexual Activity Alcohol Use No Review of Systems: Constitutional: Change in appetite, Weight loss or gain, Malaise (depression), and Chills Eyes: Patient denies vision changes or diplopia (double vision). Ears, Nose, Nose and Throat: Tinnitus (ringing in ears) Respiratory: Dyspnea (shortness of breath) Cardiovascular: Patient denies chest pain, palpitations, and shortness of breath. Gastrointestinal: Patient denies abdominal pain, nausea, vomiting, bloating, diarrhea (chronic), constipation (chronic), melena (black stool), hematochezia (blood in stool). Musculoskeletal: Patient denies joint pain/stiffness, weakness, swelling, and backache. Neurologic: Weakness and Dizziness Integument: Patient denies rashes and non-healing lesions. Psychiatric: Depression Endocrine: Heat or cold intolerance, Diabetes, Excessive thirst, and Hunger Blood Disorders: Anemia Physical Exam: BP 128/72 Pulse 77 Ht 170.2 cm (5' 7 ) Wt 74.8 kg (165 lb) BMI 25.84 kg/m Assessment and Plan: Gagandeep was seen today for urinary retention. Diagnoses and all orders for this visit: Urinary retention - Urine Culture; Future Other orders - tamsulosin (FLOMAX) 0.4 mg capsule; Take 1 capsule (0.4 mg total) by mouth nightly for 30 days. - cefaDROXil (DURICEF) 500 mg capsule; Take 1 capsule (500 mg total) by mouth in the morning and 1 capsule (500 mg total) before bedtime. Do all this for 7 days. Problem List Genitourinary Urinary retention - Primary Overview 09/28/2023: Urinary retention secondary to COVID. Plan urine for culture, tamsulosin 0.4 mg, prescription for Duricef, void trial 1 week Relevant Orders Urine Culture Follow-up: Jo Veronica MD This note was created with the assistance of a speech recognition program. While intending to generate a timely document that accurately reflects the content of the visit, no guarantee can be provided that every grammatical or spelling mistake has been or will be identified or corrected. Thank you for your understanding. [facility] Progress note Author Martha Wilkes [facility] September 22, 2023 11:20am Note Date/Time September 22, 2023 11: 18am [facility] [address] [place] [address] Wound Center Provider Note Signed Patient: Gagandeep Ahn MR#: [id number] : 1950 Acct:[id number] Age/Sex: 72 / M Copies to: Kota Funes APRN, CORBIN Wilkes APRN~ HPI Date of Visit Date of Visit: Date of Service: 09/22/2023 Time of Service: 11:11 Narrative HPI: 08/19/23 Gagandeep is a 72-year-old male [facility] for an initial visit for evaluation and treatment for bilateral heel ulcers. Please note that his daughter Soila is with him for the entire visit. Gagandeep does currently reside at an assisted living facility. We we will need to set [facility] care for him due to the taxing effort to leave the facility as well as the skilled dressing need. I did choose to order topical Betadine at this time until I get the results of the bilateral lower extremity arterial studies as well as the bilateral x-rays of the heels. Gagandeep can return to the office within 2 weeks. Healing of this will be greatly affected by his chronic conditions as well as his diet and lifestyle. Some supportive suggestions were provided on his discharge paperwork about an anti-inflammatory diet as well as supplements that are known to support the healing process. 08/26/23 stable, will keep current orders, xray was complete- no bone issues, pvris today and we will make decisions based on those results, family present for visit, no acute infection signs, 1 week appt, hhc to continue, does not always wear the heel protectors d/t safety concerns 09/02/23 dao, added honey sheet to the right heel ulcer, sent referral for vascular d/t the pvr results that suggests pvod, I will not debride until I see their note indicating that they feel the arterial flow is adequate for me to debride, family was present, hhc is still ongoing, 1 week appt, still not consistently wearing the heel protectors 09/09/23 again stable, right heel with odor and loose hanging eschar that was removed with scalpel and forcep today, sees vascular at 1130 today and then maybe we can be more aggressive with debridement and treatment if they feel the arterial flow is adequate enough, continued the same orders of honey sheet to the right heel and betadine to the left, hhc continues, family present for the visit, 7-10 day appt 09/22/23 stable, right heel still with odor and so culture was taken and topical iodoflex was ordered for both heels, saw vascular and had revasc done 09/13/23 and per note blood flow is adequate for healing, hhc continues while he stays atthe assisted living facility, order for ot/pt to help with walking and proper offloading while walking, podiatry consult for right heel for 2nd opinion about joint rom and potential tendon involvement, tissue culture taken of the right heel, and daughter present today, 7-14 day appt Subjective Pain Right Heel: Pain Description: Intermittent Pain Intensity: 8 Pain Management Techniques Other/Comment: 09/22/2023 not as bad Left Heel: Pain Description: Intermittent Pain Intensity: 8 Pain Management Techniques Other/Comment: 09/22/2023 not as bad Wound/Ulcer History When did wound start?: June 2023 right heel ulcer Mode of Arrival/ Rn Chronic: Family Assistive Device Used Today: Wheelchair Appetite Description: Within Normal Limits Who helps w/ dressing change?: Home Health Why Do You Need Help?: Can't Reach Ulcer, Limited mobility, Unsafe leave home byself and Taxing effort to leave home Smoking Status: Former smoker [facility] Medical History Hypertension Depression Colon cancer Vitamin D deficiency Osteopenia Mood disorder retirement current use of insulin Insomnia Hypoglycemia associated with type 2 diabetes mellitus Glaucoma Diabetic neuropathy Depressive disorder Cataract Anxiety Ulcer of right heel Ulcer of left heel Osteoporosis Arthritis Kidney stones Restless legs syndrome Neuropathy Depression COPD (chronic obstructive pulmonary disease) Hyperlipemia Hypertension Diabetes Colon cancer Surgical History History of orthopedic surgery History of back surgery H/O exploratory laparotomy History of carpal tunnel surgery H/O colectomy Family History Father Cancer Brother Parkinson disease Sister Esophageal cancer Brother Diabetes Legacy FamHx Relation: Brother(s) Father Heart disease History of stroke Legacy FamHx Problem: Diagnosed with Stroke Family/Other Legacy FamHx Problem: 1 sister -cancer Mother History of stroke Legacy FamHx Problem: Diagnosed with Stroke Diabetes Sister Diabetes Cancer Legacy FamHx Problem: Diagnosed with Cancer Social History Smoking Status: Former smoker Tobacco Type: cigarettes Substance Use Type: None Grafts History of Graft History of Graft?: No Exam Physical Exam Vital Signs: Temp Pulse Resp BP O2 Del Method 97.9 F 67 20 152/77 H Room Air 09/22/23 10:53 09/22/23 10:53 09/22/23 10:53 09/22/23 10:53 09/22/23 10:53 Const General: cooperative, comfortable, no acute distress and frail appearing Nutritional Appearance: thin Orientation: alert, awake and oriented x3 Lower/Upper Extremity Exam Vascular Exam-Edema Right Foot: Edema Type: None Left Foot: Edema Type: None Vascular Exam-Pulses Right Brachial: Pulse Assessment Method: NIBP Right Dorsalis Pedis: Pulse Assessment Method: Doppler Right Posterior Tibial: Pulse Assessment Method: Doppler Left Dorsalis Pedis: Pulse Assessment Method: Doppler Left Posterior Tibial: Pulse Assessment Method: Doppler Objective Meds/Allergies Home Medications gabapentin 300 mg capsule 300 mg PO TID 03/10/18 [History Confirmed 09/13/23] hydrochlorothiazide 12.5 mg tablet 25 mg PO DAILY 03/10/18 [History Confirmed 09/13/23] amlodipine 5 mg tablet 10 mg PO DAILY 03/31/19 [History Confirmed 09/13/23] losartan 100 mg tablet 50 mg PO QAM 03/31/19 [History Confirmed 09/13/23] metoprolol succinate 50 mg tablet,extended release 24 hr 50 mg PO DAILY 03/31/19[History Confirmed 09/13/23] docusate sodium 100 mg capsule (DOK) 100 mg PO BID 10/25/20 [History Confirmed 09/13/23] buspirone 10 mg tablet 10 mg PO DAILY 05/11/22 [History Confirmed 09/13/23] donepezil 5 mg tablet 5 mg PO DAILY 05/11/22 [History Confirmed 09/13/23] lamotrigine 25 mg tablet 25 mg PO DAILY 05/11/22 [History Confirmed 09/13/23] polyethylene glycol 1 ea miscellaneous DAILY PRN Constipation 05/11/22 [History Confirmed 09/13/23] prazosin 1 mg capsule 1 mg PO QHS 05/11/22 [History Confirmed 09/13/23] rosuvastatin 20 mg tablet 20 mg PO DAILY 05/11/22 [History Confirmed 09/13/23] semaglutide 1 mg/dose (2 mg/1.5 mL) subcutaneous pen injector (Ozempic) 1 mg subcut QWEEK 05/11/22 [History Confirmed 09/13/23] magnesium oxide-magnesium amino acid chelate 300 mg capsule (Magnesium (oxide/AAchelate)) 300 cap PO BID 08/19/23 [History Confirmed 09/13/23] metformin 1,000 mg tablet 1,000 mg PO BID 08/19/23 [History Confirmed 09/13/23] potassium chloride 20 mEq tablet,extended release (K-Tab) 20 meq PO DAILY 08/19/23 [History Confirmed 09/13/23] sertraline 100 mg tablet (Zoloft) 100 mg PO DAILY 08/19/23 [History Confirmed 09/13/23] insulin detemir U-100 100 unit/mL (3 mL) subcutaneous pen (Levemir FlexPen) 10 unit subcut QHS 09/09/23 [History Confirmed 09/22/23] insulin lispro 100 unit/mL subcutaneous pen (Humalog KwikPen (U-100) Insulin) 1 sliding scale dose subcut USEASDIRECTD 09/09/23 [History Confirmed 09/22/23] paroxetine HCl 30 mg tablet 30 mg PO DAILY 09/09/23 [History Confirmed 09/22/23] Allergies No Known Allergies Allergy (Verified 09/09/23 11:25) Wound/Ulcer Right Heel: Type: Pressure/Injury Ulcer (w/diabetes/pvod) Pressure Ulcer/Injury Staging: Unstageable (at least stage 3) Bed Appearance: Black Dry, Black Moist, Brown, [place] and Yellow Percent of Wound Bed Granulated/Red: 10 Percent of Devitalized: 90 Length (cm): 3.6 Width (cm): 2.6 Depth (cm): 0.2 CM Sq: 9.360 Surrounding Tissue Appearance: [place] Surrounding Tissue Temp: Warm Drainage Amount: Moderate Drainage Description: Serosanguineous Drainage Odor: Foul Odor Lidocaine Applied Topically: 2% Jelly Left Heel: Type: Pressure/Injury Ulcer (w/diabetes/pvod) Pressure Ulcer/Injury Staging: Unstageable (at least stage 3) Bed Appearance: Black Dry and Yellow Percent of Wound Bed Granulated/Red: 0 Percent of Devitalized: 100 Length (cm): 1.3 Width (cm): 1.0 Depth (cm): 0.1 CM Sq: 1.300 Surrounding Tissue Appearance: [place] Surrounding Tissue Temp: Warm Drainage Amount: None Drainage Description: Serosanguineous Drainage Odor: No Odor Lidocaine Applied Topically: 2% Jelly Procedures Time Out: 2 Patient Identifiers, Correct Patient, Correct Side/Site, Correct Procedure and Safety Issues Reviewed Procedure: The right heel ulcer was anesthetized with topical 2% lidocaine gel. A forcep and scalpel was used to perform debridement for the removal of 4 cm? of devitalized tissue consisting of skin and slough. Debridement was down to healthy bleeding tissue. Estimated blood loss was minimal. Hemostasis was achieved by applying pressure. The right heel ulcer now appears with more pink and less yellow and the size remains the same. The patient tolerated well with no pain. The left heel ulcer was anesthetized with topical 2% lidocaine gel. A forcep and scalpel was used to perform debridement for the removal of 1 cm? of devitalized tissue consisting of eschar. Debridement was down to minimal healthy bleeding tissue. Estimated blood loss was minimal. Hemostasis was achieved by applying pressure. The left heel ulcer now appears pink and with noeschar and the size remains the same. The patient tolerated well with no pain. Results Additional Studies: ITS Impressions Calcaneus X-Ray 08/19/23 07:42 IMPRESSION: Mild soft tissue swelling. No subcutaneous air or radiodense foreign body. No acute bony involvement. Impression dictated by: Austyn Day M.D.08/19/2023 10:46 AM Dictation Location: [place] [address] Height: 5 ft 9 in Weight: 69.853 kg Body Mass Index: 22.7 Assessment/Plan Assessment/Plan (1) Ulcer of right heel: Qualifiers: Non-pressure ulcer stage: with fat layer exposed Qualified Code(s): L97.412 - Non-pressure chronic ulcer of right heel and midfoot with fat layer exposed Code(s): L97.419 - Non-pressure chronic ulcer of right heel and midfoot with unspecified severity (2) Ulcer of left heel: Qualifiers: Non-pressure ulcer stage: limited to breakdown of skin Qualified Code(s): L97.421 - Non-pressure chronic ulcer of left heel and midfoot limited to breakdown of skin Code(s): L97.429 - 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 (3) Diabetes: Code(s): E11.9 - Type 2 diabetes mellitus without complications (4) PAD (peripheral artery disease): Code(s): I73.9 - Peripheral vascular disease, unspecified Plan: suspected Quantitative information is limited from this examination due to incompressibility. The toe brachial index is within normal limits bilaterally. Plethysmographic waveforms suggest perhaps mild occlusive disease. 08/27/23 studyfindings This patient has adequate blood supply to heal the wounds. 09/13/23 procedure disposition note (5) Hyperlipemia: Code(s): E78.5 - Hyperlipidemia, unspecified (6) Neuropathy: Code(s): G62.9 - Polyneuropathy, unspecified (7) Weakness: Code(s): R53.1 - Weakness (8) At high risk for skin breakdown: Code(s): Z91.89 - Other specified personal risk factors, not elsewhere classified (9) COPD (chronic obstructive pulmonary disease): Code(s): J44.9 - Chronic obstructive pulmonary disease, unspecified Plan see orders and hpi Time spent with patient Time Spent With Patient (min): 18 Dictated By: Martha Wilkes APRN DD/ 1111 Signed By: <Electronically signed by IAIN Wilkes> 09/22/23 1120 [facility] Work Phone: [phone] 121-917903-18-2024 [facility] Progress note Author Martha Wilkes [facility] September 09, 2023 8:46am Note Date/Time September 09, 2023 8:4 6am [facility] [address] [place] [address] Wound Center Provider Note Signed Patient: Gagandeep Ahn MR#: [id number] : 1950 Acct:[id number] Age/Sex: 72 / M Copies to: Kota Funes APRN, BUSHWALKING GUIDE Martha Wilkes APRN~ HPI Date of Visit Date of Visit: Date of Service: 09/09/2023 Time of Service: 08:42 Narrative HPI: 08/19/23 Gagandeep is a 72-year-old male [facility] for an initial visit for evaluation and treatment for bilateral heel ulcers. Please note that his daughter Soila is with him for the entire visit. Gagandeep does currently reside at an assisted living facility. We we will need to set [facility] care for him due to the taxing effort to leave the facility as well as the skilled dressing need. I did choose to order topical Betadine at this time until I get the results of the bilateral lower extremity arterial studies as well as the bilateral x-rays of the heels. Gagandeep can return to the office within 2 weeks. Healing of this will be greatly affected by his chronic conditions as well as his diet and lifestyle. Some supportive suggestions were provided on his discharge paperwork about an anti-inflammatory diet as well as supplements that are known to support the healing process. 08/26/23 stable, will keep current orders, xray was complete- no bone issues, pvris today and we will make decisions based on those results, family present for visit, no acute infection signs, 1 week appt, hhc to continue, does not always wear the heel protectors d/t safety concerns 09/02/23 stable, added honey sheet to the right heel ulcer, sent referral for vascular d/t the pvr results that suggests pvod, I will not debride until I see their note indicating that they feel the arterial flow is adequate for me to debride, family was present, hhc is still ongoing, 1 week appt, still not consistently wearing the heel protectors 09/09/23 again stable, right heel with odor and loose hanging eschar that was removed with scalpel and forcep today, sees vascular at 1130 today and then maybe we can be more aggressive with debridement and treatment if they feel the arterial flow is adequate enough, continued the same orders of honey sheet to the right heel and betadine to the left, [facility] continues, family present for the visit, 7-10 day appt Subjective Pain Right Heel: Pain Description: Intermittent Pain Intensity: 8 Left Heel: Pain Description: Intermittent Pain Intensity: 8 Wound/Ulcer History When did wound start?: June 2023 right heel ulcer Mode of Arrival/ Rn Chronic: Family Assistive Device Used Today: Wheelchair Appetite Description: Within Normal Limits Who helps w/ dressing change?: Home Health Why Do You Need Help?: Can't Reach Ulcer, Limited mobility, Unsafe leave home byself and Taxing effort to leave home Smoking Status: Former smoker [facility] Medical History (Updated 09/05/23 @ 00:00 by Kareen Thomas) Ulcer of right heel Ulcer of left heel Osteoporosis Arthritis Kidney stones Restless legs syndrome Neuropathy Depression COPD (chronic obstructive pulmonary disease) Hyperlipemia Hypertension Diabetes Colon cancer Surgical History History of orthopedic surgery left ankle History of back surgery H/O exploratory laparotomy History of carpal tunnel surgery H/O colectomy Family History Father Cancer Brother Parkinson disease Sister Esophageal cancer Brother Diabetes Legacy FamHx Relation: Brother(s) Father Heart disease History of stroke Legacy FamHx Problem: Diagnosed with Stroke Family/Other Legacy FamHx Problem: 1 sister -cancer Mother History of stroke Legacy FamHx Problem: Diagnosed with Stroke Diabetes Sister Diabetes Cancer Legacy FamHx Problem: Diagnosed with Cancer Social History Smoking Status: Former smoker Tobacco Type: cigarettes Substance Use Type: None Grafts History of Graft History of Graft?: No Exam Physical Exam Vital Signs: Temp Pulse Resp BP O2 Del Method 97.5 F L 64 18 115/69 Room Air 09/09/23 08:31 09/09/23 08:31 09/09/23 08:31 09/09/23 08:31 09/09/23 08:31 Const General: cooperative, comfortable, no acute distress and frail appearing Nutritional Appearance: thin Orientation: alert, awake and oriented x3 Lower/Upper Extremity Exam Vascular Exam-Edema Right Foot: Edema Type: None Left Foot: Edema Type: None Vascular Exam-Pulses Right Brachial: Pulse Assessment Method: NIBP Right Dorsalis Pedis: Pulse Assessment Method: Doppler Right Posterior Tibial: Pulse Assessment Method: Doppler Left Dorsalis Pedis: Pulse Assessment Method: Doppler Left Posterior Tibial: Pulse Assessment Method: Doppler Objective Meds/Allergies Home Medications gabapentin 300 mg capsule 300 mg PO TID 03/10/18 [History Confirmed 08/19/23] hydrochlorothiazide 12.5 mg tablet 25 mg PO DAILY 03/10/18 [History Confirmed 08/19/23] amlodipine 5 mg tablet 10 mg PO DAILY 03/31/19 [History Confirmed 08/19/23] losartan 100 mg tablet 50 mg PO QAM 03/31/19 [History Confirmed 08/19/23] metoprolol succinate 50 mg tablet,extended release 24 hr 50 mg PO DAILY 03/31/19[History Confirmed 08/19/23] docusate sodium 100 mg capsule (DOK) 100 mg PO BID 10/25/20 [History Confirmed 08/19/23] buspirone 10 mg tablet 10 mg PO DAILY 05/11/22 [History Confirmed 08/19/23] donepezil 5 mg tablet 5 mg PO DAILY 05/11/22 [History Confirmed 08/19/23] lamotrigine 25 mg tablet 25 mg PO DAILY 05/11/22 [History Confirmed 08/19/23] polyethylene glycol 1 ea miscellaneous DAILY PRN Constipation 05/11/22 [History Confirmed 08/19/23] prazosin 1 mg capsule 1 mg PO QHS 05/11/22 [History Confirmed 08/19/23] rosuvastatin 20 mg tablet 20 mg PO DAILY 05/11/22 [History Confirmed 08/19/23] semaglutide 1 mg/dose (2 mg/1.5 mL) subcutaneous pen injector (Ozempic) 1 mg subcut QWEEK 05/11/22 [History Confirmed 08/19/23] magnesium oxide-magnesium amino acid chelate 300 mg capsule (Magnesium (oxide/AAchelate)) 300 cap PO BID 08/19/23 [History Confirmed 09/09/23] metformin 1,000 mg tablet 1,000 mg PO BID 08/19/23 [History Confirmed 08/19/23] potassium chloride 20 mEq tablet,extended release (K-Tab) 20 meq PO DAILY 08/19/23 [History Confirmed 08/19/23] sertraline 100 mg tablet (Zoloft) 100 mg PO DAILY 08/19/23 [History Confirmed 08/19/23] cephalexin 500 mg capsule 500 mg PO Q8HR 10 days #30 caps 08/28/23 [Rx Confirmed 09/09/23] Allergies No Known Allergies Allergy (Verified 08/28/23 14:38) Wound/Ulcer Right Heel: Type: Pressure/Injury Ulcer (w/diabetes/pvod) Pressure Ulcer/Injury Staging: Unstageable (at least stage 3) Bed Appearance: Black Dry, Black Moist, Brown, [place] and Yellow Percent of Wound Bed Granulated/Red: 5 Percent of Devitalized: 95 Length (cm): 3 Width (cm): 2.8 Depth (cm): 0.2 CM Sq: 8.400 Surrounding Tissue Appearance: [place] Surrounding Tissue Temp: Warm Drainage Amount: Moderate Drainage Description: Serosanguineous Drainage Odor: Foul Odor Left Heel: Type: Pressure/Injury Ulcer (w/diabetes/pvod) Pressure Ulcer/Injury Staging: Unstageable (at least stage 3) Bed Appearance: Black Dry Percent of Wound Bed Granulated/Red: 0 Percent of Devitalized: 100 Length (cm): 1.2 Width (cm): 1.0 Depth (cm): 0.1 CM Sq: 1.200 Surrounding Tissue Appearance: [place] Surrounding Tissue Temp: Warm Drainage Amount: None Drainage Description: Serosanguineous Drainage Odor: No Odor Procedures Time Out: 2 Patient Identifiers, Correct Patient, Correct Side/Site, Correct Procedure and Safety Issues Reviewed Procedure: The right heel ulcer was not anesthetized with topical 2% lidocaine gel. A scalpel and forcep was used to perform debridement for the removal of 3 cm? of devitalized tissue consisting of skin and slough and dry eschar. Debridement was not down to healthy bleeding tissue. Estimated blood loss was none. The right heel ulcer now appears with no black eschar and the size remains the same. The patient tolerated well with no pain. Results Additional Studies: ITS Impressions Calcaneus X-Ray 08/19/23 07:42 IMPRESSION: Mild soft tissue swelling. No subcutaneous air or radiodense foreign body. No acute bony involvement. Impression dictated by: Austyn Day M.D.08/19/2023 10:46 AM Dictation Location: [place] [address] Height: 5 ft 9 in Weight: 69.853 kg Body Mass Index: 22.7 Assessment/Plan Assessment/Plan (1) Ulcer of right heel: Code(s): L97.419 - Non-pressure chronic ulcer of right heel and midfoot with unspecified severity (2) Ulcer of left heel: Code(s): L97.429 - 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 (3) Diabetes: Code(s): E11.9 - Type 2 diabetes mellitus without complications (4) PAD (peripheral artery disease): Code(s): I73.9 - Peripheral vascular disease, unspecified Plan: suspected Quantitative information is limited from this examination due to incompressibility. The toe brachial index is within normal limits bilaterally. Plethysmographic waveforms suggest perhaps mild occlusive disease. 08/27/23 studyfindings (5) Hyperlipemia: Code(s): E78.5 - Hyperlipidemia, unspecified (6) Neuropathy: Code(s): G62.9 - Polyneuropathy, unspecified (7) Weakness: Code(s): R53.1 - Weakness (8) At high risk for skin breakdown: Code(s): Z91.89 - Other specified personal risk factors, not elsewhere classified (9) COPD (chronic obstructive pulmonary disease): Code(s): J44.9 - Chronic obstructive pulmonary disease, unspecified Plan see orders and hpi Time spent with patient Time Spent With Patient (min): 15 Dictated By: Martha Wilkes APRN DD/ 0842 Signed By: <Electronically signed by IAIN Wilkes> 09/09/23 0846 [facility] Work Phone: 1(182) 857-805903-07-2024 Progress note Author Martha Wilkes [facility] September 02, 2023 7:36am Note Date/Time September 02, 2023 7:36 am [facility] [address] [place] [address] Wound Center Provider Note Signed Patient: Gagandeep Ahn MR#: [id number] : 1950 Acct:[id number] Age/Sex: 72 / M Copies to: Kota Funes APRN, BUSHWALKING GUIDE Martha Copsey, ECG TECHNICIAN~ HPI Date of Visit Date of Visit: Date of Service: 09/02/2023 Time of Service: 07:31 Narrative HPI: 08/19/23 Gagandeep is a 72-year-old male [facility] for an initial visit for evaluation and treatment for bilateral heel ulcers. Please note that his daughter Soila is with him for the entire visit. Gagandeep does currently reside at an assisted living facility. We we will need to set [facility] care for him due to the taxing effort to leave the facility as well as the skilled dressing need. I did choose to order topical Betadine at this time until I get the results of the bilateral lower extremity arterial studies as well as the bilateral x-rays of the heels. Gagandeep can return to the office within 2 weeks. Healing of this will be greatly affected by his chronic conditions as well as his diet and lifestyle. Some supportive suggestions were provided on his discharge paperwork about an anti-inflammatory diet as well as supplements that are known to support the healing process. 08/26/23 stable, will keep current orders, xray was complete- no bone issues, pvris today and we will make decisions based on those results, family present for visit, no acute infection signs, 1 week appt, hhc to continue, does not always wear the heel protectors d/t safety concerns 09/02/23 stable, added honey sheet to the right heel ulcer, sent referral for vascular d/t the pvr results that suggests pvod, I will not debride until I see their note indicating that they feel the arterial flow is adequate for me to debride, family was present, hhc is still ongoing, 1 week appt, still not consistently wearing the heel protectors Subjective Pain Right Heel: Pain Description: Intermittent Pain Intensity: 0 Left Heel: Pain Description: Intermittent Pain Intensity: 0 Wound/Ulcer History When did wound start?: June 2023 right heel ulcer Mode of Arrival/ Rn Chronic: Family Assistive Device Used Today: Wheelchair Appetite Description: Within Normal Limits Who helps w/ dressing change?: Home Health Why Do You Need Help?: Can't Reach Ulcer, Limited mobility, Unsafe leave home byself and Taxing effort to leave home Smoking Status: Former smoker [facility] Medical History (Updated 08/28/23 @ 16:09 by Jose Enrique Almendarez DO) Ulcer of right heel Ulcer of left heel Osteoporosis Arthritis Kidney stones Restless legs syndrome Neuropathy Depression COPD (chronic obstructive pulmonary disease) Hyperlipemia Hypertension Diabetes Colon cancer Surgical History History of orthopedic surgery left ankle History of back surgery H/O exploratory laparotomy History of carpal tunnel surgery H/O colectomy Family History Father Cancer Brother Parkinson disease Sister Esophageal cancer Brother Diabetes Legacy FamHx Relation: Brother(s) Father Heart disease History of stroke Legacy FamHx Problem: Diagnosed with Stroke Family/Other Legacy FamHx Problem: 1 sister -cancer Mother History of stroke Legacy FamHx Problem: Diagnosed with Stroke Diabetes Sister Diabetes Cancer Legacy FamHx Problem: Diagnosed with Cancer Social History Smoking Status: Former smoker Tobacco Type: cigarettes Substance Use Type: None Grafts History of Graft History of Graft?: No Exam Physical Exam Vital Signs: Temp Pulse Resp BP O2 Del Method 97.5 F L 80 24 157/76 H Room Air 09/02/23 07:21 09/02/23 07:21 09/02/23 07:21 09/02/23 07:21 09/02/23 07:21 Const General: cooperative, comfortable, no acute distress and frail appearing Nutritional Appearance: thin Orientation: alert, awake and oriented x3 Lower/Upper Extremity Exam Vascular Exam-Edema Right Foot: Edema Type: Non-Pitting Left Foot: Edema Type: Non-Pitting Vascular Exam-Pulses Right Brachial: Pulse Assessment Method: NIBP Right Dorsalis Pedis: Pulse Assessment Method: Doppler Right Posterior Tibial: Pulse Assessment Method: Doppler Left Dorsalis Pedis: Pulse Assessment Method: Doppler Left Posterior Tibial: Pulse Assessment Method: Doppler Objective Meds/Allergies Home Medications gabapentin 300 mg capsule 300 mg PO TID 03/10/18 [History Confirmed 08/19/23] hydrochlorothiazide 12.5 mg tablet 25 mg PO DAILY 03/10/18 [History Confirmed 08/19/23] amlodipine 5 mg tablet 10 mg PO DAILY 03/31/19 [History Confirmed 08/19/23] losartan 100 mg tablet 50 mg PO QAM 03/31/19 [History Confirmed 08/19/23] metoprolol succinate 50 mg tablet,extended release 24 hr 50 mg PO DAILY 03/31/19[History Confirmed 08/19/23] docusate sodium 100 mg capsule (DOK) 100 mg PO BID 10/25/20 [History Confirmed 08/19/23] buspirone 10 mg tablet 10 mg PO DAILY 05/11/22 [History Confirmed 08/19/23] donepezil 5 mg tablet 5 mg PO DAILY 05/11/22 [History Confirmed 08/19/23] lamotrigine 25 mg tablet 25 mg PO DAILY 05/11/22 [History Confirmed 08/19/23] polyethylene glycol 1 ea miscellaneous DAILY PRN Constipation 05/11/22 [History Confirmed 08/19/23] prazosin 1 mg capsule 1 mg PO QHS 05/11/22 [History Confirmed 08/19/23] rosuvastatin 20 mg tablet 20 mg PO DAILY 05/11/22 [History Confirmed 08/19/23] semaglutide 1 mg/dose (2 mg/1.5 mL) subcutaneous pen injector (Ozempic) 1 mg subcut QWEEK 05/11/22 [History Confirmed 08/19/23] magnesium oxide-magnesium amino acid chelate 300 mg capsule (Magnesium (oxide/AAchelate)) cap PO BID 08/19/23 [History] metformin 1,000 mg tablet 1,000 mg PO BID 08/19/23 [History Confirmed 08/19/23] potassium chloride 20 mEq tablet,extended release (K-Tab) 20 meq PO DAILY 08/19/23 [History Confirmed 08/19/23] sertraline 100 mg tablet (Zoloft) 100 mg PO DAILY 08/19/23 [History Confirmed 08/19/23] cephalexin 500 mg capsule 500 mg PO Q8HR 10 days #30 caps 08/28/23 [Rx] Allergies No Known Allergies Allergy (Verified 08/28/23 14:38) Wound/Ulcer Right Heel: Type: Pressure/Injury Ulcer (w/diabetes/pvod) Pressure Ulcer/Injury Staging: Unstageable (at least stage 3) Bed Appearance: Black Dry, Black Moist, Brown and Yellow Percent of Wound Bed Granulated/Red: 0 Percent of Devitalized: 100 Length (cm): 3 Width (cm): 3 Depth (cm): 0.2 CM Sq: 9.000 Surrounding Tissue Appearance: [place] Surrounding Tissue Temp: Warm Drainage Amount: Moderate Drainage Description: Serosanguineous Drainage Odor: Slight Odor Left Heel: Type: Pressure/Injury Ulcer (w/diabetes/pvod) Pressure Ulcer/Injury Staging: Unstageable (at least stage 3) Bed Appearance: Black Dry Percent of Wound Bed Granulated/Red: 0 Percent of Devitalized: 100 Length (cm): 1.5 Width (cm): 1.2 Depth (cm): 0.1 CM Sq: 1.800 Surrounding Tissue Appearance: [place] Surrounding Tissue Temp: Warm Drainage Amount: None Drainage Odor: Slight Odor Results Additional Studies: ITS Impressions Calcaneus X-Ray 08/19/23 07:42 IMPRESSION: Mild soft tissue swelling. No subcutaneous air or radiodense foreign body. No acute bony involvement. Impression dictated by: Austyn Day M.D.08/19/2023 10:46 AM Dictation Location: [place] [address] Height: 5 ft 9 in Weight: 69.853 kg Body Mass Index: 22.7 Assessment/Plan Assessment/Plan (1) Ulcer of right heel: Code(s): L97.419 - Non-pressure chronic ulcer of right heel and midfoot with unspecified severity (2) Ulcer of left heel: Code(s): L97.429 - 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 (3) Diabetes: Code(s): E11.9 - Type 2 diabetes mellitus without complications (4) PAD (peripheral artery disease): Code(s): I73.9 - Peripheral vascular disease, unspecified Plan: suspected Quantitative information is limited from this examination due to incompressibility. The toe brachial index is within normal limits bilaterally. Plethysmographic waveforms suggest perhaps mild occlusive disease. 08/27/23 study findings (5) Hyperlipemia: Code(s): E78.5 - Hyperlipidemia, unspecified (6) Neuropathy: Code(s): G62.9 - Polyneuropathy, unspecified (7) Weakness: Code(s): R53.1 - Weakness (8) At high risk for skin breakdown: Code(s): Z91.89 - Other specified personal risk factors, not elsewhere classified (9) COPD (chronic obstructive pulmonary disease): Code(s): J44.9 - Chronic obstructive pulmonary disease, unspecified Plan see orders and hpi Time spent with patient Time Spent With Patient (min): 15 Dictated By: Martha Wilkes APRN DD/ 0731 Signed By: <Electronically signed by IAIN Wilkes> 09/02/23 0736 [facility] Work Phone: 1(565) 431-289202-29-2024 Progress note Author Martha Wilkes [facility] August 26, 2023 10:28am Note Date/Time August 26, 2023 10:28am [facility] [address] [place] [address] Wound Center Provider Note Signed Patient: Gagandeep Ahn MR#: [id number] : 1950 Acct:[id number] Age/Sex: 72 / M Copies to: Kota Funes APRN, BUSHWALKING GUIDE Martha Wilkes APRN~ HPI Date of Visit Date of Visit: Date of Service: 08/26/2023 Time of Service: 10:25 Narrative HPI: 08/19/23 Gagandeep is a 72-year-old male [facility] for an initial visit for evaluation and treatment for bilateral heel ulcers. Please note that his daughter Soila is with him for the entire visit. Gagandeep does currently reside at an assisted living facility. We we will need to set [facility] care for him due to the taxing effort to leave the facility as well as the skilled dressing need. I did choose to order topical Betadine at this time until I get the results of the bilateral lower extremity arterial studies as well as the bilateral x-rays of the heels. Gagandeep can return to the office within 2 weeks. Healing of this will be greatly affected by his chronic conditions as well as his diet and lifestyle. Some supportive suggestions were provided on his discharge paperwork about an anti-inflammatory diet as well as supplements that are known to support the healing process. 08/26/23 stable, will keep current orders, xray was complete- no bone issues, pvris today and we will make decisions based on those results, family present for visit, no acute infection signs, 1 week appt, hhc to continue, does not always wear the heel protectors d/t safety concerns Subjective Pain Right Heel: Pain Description: Intermittent Pain Intensity: 0 Left Heel: Pain Description: Intermittent Pain Intensity: 0 Wound/Ulcer History When did wound start?: June 2023 right heel ulcer Mode of Arrival/ Rn Chronic: Family Assistive Device Used Today: Wheelchair Appetite Description: Within Normal Limits Who helps w/ dressing change?: Home Health Why Do You Need Help?: Can't Reach Ulcer, Limited mobility, Unsafe leave home byself and Taxing effort to leave home Smoking Status: Never smoker [facility] Medical History (Updated 08/19/23 @ 07:38 by Martha Wilkes APRN) Ulcer of right heel Ulcer of left heel Osteoporosis Arthritis Kidney stones Restless legs syndrome Neuropathy Depression COPD (chronic obstructive pulmonary disease) Hyperlipemia Hypertension Diabetes Colon cancer Surgical History History of orthopedic surgery left ankle History of back surgery H/O exploratory laparotomy History of carpal tunnel surgery H/O colectomy Family History Father Cancer Brother Parkinson disease Sister Esophageal cancer Brother Diabetes Legacy FamHx Relation: Brother(s) Father Heart disease History of stroke Legacy FamHx Problem: Diagnosed with Stroke Family/Other Legacy FamHx Problem: 1 sister -cancer Mother History of stroke Legacy FamHx Problem: Diagnosed with Stroke Diabetes Sister Diabetes Cancer Legacy FamHx Problem: Diagnosed with Cancer Social History Smoking Status: Never smoker Tobacco Type: cigarettes Substance Use Type: None Grafts History of Graft History of Graft?: No Exam Physical Exam Vital Signs: Temp Pulse Resp BP O2 Del Method 97.9 F 74 18 154/93 H Room Air 08/26/23 10:13 08/26/23 10:13 08/26/23 10:13 08/26/23 10:13 08/26/23 10:13 Const General: cooperative, comfortable, no acute distress and frail appearing Nutritional Appearance: thin Orientation: alert, awake and oriented x3 Lower/Upper Extremity Exam Vascular Exam-Edema Right Foot: Edema Type: Non-Pitting Left Foot: Edema Type: Non-Pitting Vascular Exam-Pulses Right Brachial: Pulse Assessment Method: NIBP Right Dorsalis Pedis: Pulse Assessment Method: Doppler Right Posterior Tibial: Pulse Assessment Method: Doppler Left Dorsalis Pedis: Pulse Assessment Method: Doppler Left Posterior Tibial: Pulse Assessment Method: Doppler Objective Meds/Allergies Home Medications gabapentin 300 mg capsule 300 mg PO TID 03/10/18 [History Confirmed 08/19/23] hydrochlorothiazide 12.5 mg tablet 25 mg PO DAILY 03/10/18 [History Confirmed 08/19/23] amlodipine 5 mg tablet 10 mg PO DAILY 03/31/19 [History Confirmed 08/19/23] losartan 100 mg tablet 50 mg PO QAM 03/31/19 [History Confirmed 08/19/23] metoprolol succinate 50 mg tablet,extended release 24 hr 50 mg PO DAILY 03/31/19[History Confirmed 08/19/23] docusate sodium 100 mg capsule (DOK) 100 mg PO BID 10/25/20 [History Confirmed 08/19/23] buspirone 10 mg tablet 10 mg PO DAILY 05/11/22 [History Confirmed 08/19/23] donepezil 5 mg tablet 5 mg PO DAILY 05/11/22 [History Confirmed 08/19/23] lamotrigine 25 mg tablet 25 mg PO DAILY 05/11/22 [History Confirmed 08/19/23] polyethylene glycol 1 ea miscellaneous DAILY PRN Constipation 05/11/22 [History Confirmed 08/19/23] prazosin 1 mg capsule 1 mg PO QHS 05/11/22 [History Confirmed 08/19/23] rosuvastatin 20 mg tablet 20 mg PO DAILY 05/11/22 [History Confirmed 08/19/23] semaglutide 1 mg/dose (2 mg/1.5 mL) subcutaneous pen injector (Ozempic) 1 mg subcut QWEEK 05/11/22 [History Confirmed 08/19/23] magnesium oxide-magnesium amino acid chelate 300 mg capsule (Magnesium (oxide/AAchelate)) cap PO BID 08/19/23 [History] metformin 1,000 mg tablet 1,000 mg PO BID 08/19/23 [History Confirmed 08/19/23] potassium chloride 20 mEq tablet,extended release (K-Tab) 20 meq PO DAILY 08/19/23 [History Confirmed 08/19/23] sertraline 100 mg tablet (Zoloft) 100 mg PO DAILY 08/19/23 [History Confirmed 08/19/23] Allergies No Known Allergies Allergy (Verified 05/11/22 11:10) Wound/Ulcer Right Heel: Type: Pressure/Injury Ulcer (w/diabetes) Pressure Ulcer/Injury Staging: Unstageable (at least stage 3) Bed Appearance: Black Dry, Black Moist, Brown and Yellow Percent of Wound Bed Granulated/Red: 0 Percent of Devitalized: 100 Length (cm): 2.8 Width (cm): 3 Depth (cm): 0.2 CM Sq: 8.400 Surrounding Tissue Appearance: [place] Surrounding Tissue Temp: Warm Drainage Amount: Moderate Drainage Description: Serosanguineous Drainage Odor: Slight Odor Left Heel: Type: Pressure/Injury Ulcer (w/diabetes) Pressure Ulcer/Injury Staging: Unstageable (at least stage 3) Bed Appearance: Black Dry, Black Moist and Yellow Percent of Wound Bed Granulated/Red: 0 Percent of Devitalized: 100 Length (cm): 1.4 Width (cm): 1.1 Depth (cm): 0.1 CM Sq: 1.540 Surrounding Tissue Appearance: [place] Surrounding Tissue Temp: Warm Drainage Amount: Scant Drainage Description: Serosanguineous Drainage Odor: Slight Odor Results Additional Studies: ITS Impressions Calcaneus X-Ray 08/19/23 07:42 IMPRESSION: Mild soft tissue swelling. No subcutaneous air or radiodense foreign body. No acute bony involvement. Impression dictated by: Austyn Day M.D.08/19/2023 10:46 AM Dictation Location: [place] [address] Height: 5 ft 9 in Weight: 69.853 kg Body Mass Index: 22.7 Assessment/Plan Assessment/Plan (1) Ulcer of right heel: Code(s): L97.419 - Non-pressure chronic ulcer of right heel and midfoot with unspecified severity (2) Ulcer of left heel: Code(s): L97.429 - 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 (3) Diabetes: Code(s): E11.9 - Type 2 diabetes mellitus without complications (4) PAD (peripheral artery disease): Code(s): I73.9 - Peripheral vascular disease, unspecified Plan: suspected (5) Hyperlipemia: Code(s): E78.5 - Hyperlipidemia, unspecified (6) Neuropathy: Code(s): G62.9 - Polyneuropathy, unspecified (7) Weakness: Code(s): R53.1 - Weakness (8) At high risk for skin breakdown: Code(s): Z91.89 - Other specified personal risk factors, not elsewhere classified (9) COPD (chronic obstructive pulmonary disease): Code(s): J44.9 - Chronic obstructive pulmonary disease, unspecified Plan see orders and hpi Time spent with patient Time Spent With Patient (min): 14 Dictated By: Martha Wilkes APRN DD/ 1025 Signed By: <Electronically signed by IAIN Wilkes> 08/26/23 1028 [facility] Work Phone: [phone]) 728-201902-26-2024 Progress note Author Brandy Banks [facility] August 23, 2023 12:54pm Note Date/Time August 19, 2023 7:41am [facility] [address] [place] [address] Wound Center Provider Note Signed Patient: Gagandeep Ahn MR#: [id number] : 1950 Acct:[id number] Age/Sex: 72 / M Copies to: MD Kota Peacock APRN, CORBIN Wilkes APRN~ HPI Date of Visit Date of Visit: Date of Service: 08/19/2023 Time of Service: 07:35 Narrative HPI: 08/19/23 Gagandeep is a 72-year-old male [facility] for an initial visit for evaluation and treatment for bilateral heel ulcers. Please note that his daughter Soila is with him for the entire visit. Gagandeep does currently reside at an assisted living facility. We we will need to set [facility] care for him due to the taxing effort to leave the facility as well as the skilled dressing need. I did choose to order topical Betadine at this time until I get the results of the bilateral lower extremity arterial studies as well as the bilateral x-rays of the heels. Gagandeep can return to the office within 2 weeks. Healing of this will be greatly affected by his chronic conditions as well as his diet and lifestyle. Some supportive suggestions were provided on his discharge paperwork about an anti-inflammatory diet as well as supplements that are known to support the healing process. Subjective Pain Right Heel: Pain Description: Intermittent Left Heel: Pain Description: Intermittent Wound/Ulcer History When did wound start?: June 2023 right heel ulcer Mode of Arrival/ Rn Chronic: Family Assistive Device Used Today: Wheelchair Appetite Description: Within Normal Limits Who helps w/ dressing change?: Home Health Why Do You Need Help?: Can't Reach Ulcer, Limited mobility, Unsafe leave home byself and Taxing effort to leave home Smoking Status: Never smoker [facility] Medical History (Updated 08/19/23 @ 07:38 by Martha Wilkes APRN) Ulcer of right heel Ulcer of left heel Osteoporosis Arthritis Kidney stones Restless legs syndrome Neuropathy Depression COPD (chronic obstructive pulmonary disease) Hyperlipemia Hypertension Diabetes Colon cancer Surgical History History of orthopedic surgery left ankle History of back surgery H/O exploratory laparotomy History of carpal tunnel surgery H/O colectomy Family History Father Cancer Brother Parkinson disease Sister Esophageal cancer Brother Diabetes Legacy FamHx Relation: Brother(s) Father Heart disease History of stroke Legacy FamHx Problem: Diagnosed with Stroke Family/Other Legacy FamHx Problem: 1 sister -cancer Mother History of stroke Legacy FamHx Problem: Diagnosed with Stroke Diabetes Sister Diabetes Cancer Legacy FamHx Problem: Diagnosed with Cancer Social History Smoking Status: Never smoker Tobacco Type: cigarettes Substance Use Type: None Grafts History of Graft History of Graft?: No Exam Physical Exam Vital Signs: Temp Pulse Resp BP O2 Del Method 97.5 F L 67 20 129/69 Room Air 08/19/23 07:17 08/19/23 07:17 08/19/23 07:17 08/19/23 07:17 08/19/23 07:17 Const General: cooperative, comfortable, no acute distress and frail appearing Nutritional Appearance: thin Orientation: alert, awake and oriented x3 Lower/Upper Extremity Exam Vascular Exam-Edema Right Foot: Edema Type: Non-Pitting Left Foot: Edema Type: Non-Pitting Vascular Exam-Pulses Right Brachial: Pulse Assessment Method: NIBP Right Dorsalis Pedis: Pulse Assessment Method: Doppler Right Posterior Tibial: Pulse Assessment Method: Doppler Left Dorsalis Pedis: Pulse Assessment Method: Doppler Left Posterior Tibial: Pulse Assessment Method: Doppler Objective Meds/Allergies Home Medications gabapentin 300 mg capsule 300 mg PO TID 03/10/18 [History Confirmed 05/11/22] hydrochlorothiazide 12.5 mg tablet 25 mg PO DAILY 03/10/18 [History Confirmed 05/11/22] amlodipine 5 mg tablet 10 mg PO DAILY 03/31/19 [History Confirmed 05/11/22] insulin detemir U-100 100 unit/mL (3 mL) subcutaneous pen (Levemir FlexTouch U- 100 Insulin) 3 unit subcut QHS 03/31/19 [History Confirmed 05/11/22] losartan 100 mg tablet 50 mg PO QAM 03/31/19 [History Confirmed 05/11/22] metoprolol succinate 50 mg tablet,extended release 24 hr 50 mg PO DAILY 03/31/19[History Confirmed 05/11/22] paroxetine HCl 20 mg tablet 30 mg PO DAILY 08/06/20 [History Confirmed 05/11/22] atorvastatin 40 mg tablet 40 mg PO DAILY 10/25/20 [History Confirmed 05/11/22] docusate sodium 100 mg capsule (DOK) 100 mg PO BID 10/25/20 [History Confirmed 05/11/22] insulin lispro 100 unit/mL subcutaneous pen (Humalog KwikPen (U-100) Insulin) 1 sliding scale dose subcut BID 10/25/20 [History Confirmed 05/11/22] aripiprazole 5 mg tablet 5 mg PO DAILY 05/11/22 [History Confirmed 05/11/22] brimonidine 0.15 % eye drops 1 drp Eye-Both TID 05/11/22 [History Confirmed 05/11/22] buspirone 10 mg tablet 10 mg PO DAILY 05/11/22 [History Confirmed 05/11/22] cyanocobalamin (vitamin B-12) 100 mcg tablet 100 mcg PO DAILY 05/11/22 [History Confirmed 05/11/22] donepezil 5 mg tablet 5 mg PO DAILY 05/11/22 [History Confirmed 05/11/22] glyburide 5 mg tablet 5 mg PO BID 05/11/22 [History Confirmed 05/11/22] lamotrigine 25 mg tablet 25 mg PO DAILY 05/11/22 [History Confirmed 05/11/22] latanoprost 0.005 % eye drops 1 drp Eye-Both QHS 05/11/22 [History Confirmed 05/11/22] liraglutide 0.6 mg/0.1 mL (18 mg/3 mL) subcutaneous pen injector 1.8 mg subcut DAILY 05/11/22 [History Confirmed 05/11/22] polyethylene glycol 1 ea miscellaneous DAILY PRN Constipation 05/11/22 [History Confirmed 05/11/22] prazosin 1 mg capsule 1 mg PO QHS 05/11/22 [History Confirmed 05/11/22] rosuvastatin 20 mg tablet 20 mg PO DAILY 05/11/22 [History Confirmed 05/11/22] semaglutide 1 mg/dose (2 mg/1.5 mL) subcutaneous pen injector (Ozempic) 1 mg subcut QWEEK 05/11/22 [History Confirmed 05/11/22] Allergies No Known Allergies Allergy (Verified 05/11/22 11:10) Wound/Ulcer Right Heel: Type: Pressure/Injury Ulcer (w/diabetes) Pressure Ulcer/Injury Staging: Unstageable (at least stage 3) Bed Appearance: Black Dry, Black Moist, [place] and Yellow Percent of Wound Bed Granulated/Red: 2 Percent of Devitalized: 98 Length (cm): 2.8 Width (cm): 3 Depth (cm): 0.2 CM Sq: 8.400 Surrounding Tissue Appearance: [place] Surrounding Tissue Temp: Warm Drainage Amount: Moderate Drainage Description: Serosanguineous Drainage Odor: Slight Odor Left Heel: Type: Pressure/Injury Ulcer (w/diabetes) Pressure Ulcer/Injury Staging: Unstageable (at least stage 3) Bed Appearance: Black Dry, Black Moist and Yellow Percent of Wound Bed Granulated/Red: 0 Percent of Devitalized: 100 Length (cm): 1.7 Width (cm): 1.3 Depth (cm): 0.2 CM Sq: 2.210 Surrounding Tissue Appearance: [place] Surrounding Tissue Temp: Warm Drainage Amount: Moderate Drainage Description: Serosanguineous Drainage Odor: Slight Odor Results Height: 5 ft 9 in Weight: 69.853 kg Body Mass Index: 22.7 Assessment/Plan Assessment/Plan (1) Ulcer of right heel: Code(s): L97.419 - Non-pressure chronic ulcer of right heel and midfoot with unspecified severity (2) Ulcer of left heel: Code(s): L97.429 - 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 (3) Diabetes: Code(s): E11.9 - Type 2 diabetes mellitus without complications (4) PAD (peripheral artery disease): Code(s): I73.9 - Peripheral vascular disease, unspecified Plan: suspected (5) Hyperlipemia: Code(s): E78.5 - Hyperlipidemia, unspecified (6) Neuropathy: Code(s): G62.9 - Polyneuropathy, unspecified (7) Weakness: Code(s): R53.1 - Weakness (8) At high risk for skin breakdown: Code(s): Z91.89 - Other specified personal risk factors, not elsewhere classified (9) COPD (chronic obstructive pulmonary disease): Code(s): J44.9 - Chronic obstructive pulmonary disease, unspecified Plan see orders and hpi Time spent with patient Time Spent With Patient (min): 20 Dictated By: Martha Wilkes APRN DD/ [id number] Signed By: <Electronically signed by IAIN Wilkes> 08/19/23 0742 <Electronically signed by MD Brandy Banks> 08/23/23 [facility] Work Phone: 1(127) 704-288501-30-2024 Miscellaneous Notes* Telephone Encounter - Marcella Jones - 07/27/2023 3:25 PM EST Patient contacted our office to schedule appointment, however, we have not received patients referral. Assignment Desk Assistant explained that in order to schedule we would need a referral, office notes and a updated demographics sheet. Assignment Desk Assistant also gave patient the referrals fax number of [phone]. Patient was understanding. Please advise [facility] Telephone encounter Note* Telephone Encounter - Marcella Jones - 07/27/2023 3:25 PM EST Patient contacted our office to schedule appointment, however, we have not received patients referral. Assignment Desk Assistant explained that in order to schedule we would need a referral, office notes and a updated demographics sheet. Assignment Desk Assistant also gave patient the referrals fax number of [phone]. Patient was understanding. Please advise [facility] [phone] Evaluation note* Encounter Date Diagnosis Assessment Notes Treatment Notes Treatment Clinical Notes Apr, Type 2 diabetes mellitus with hyperglycemia (ICD-10 - E11.65) 1. Uncontrolled, a Type 2 diabetes with A1c of 9.1%. 2. Blood glucose levels significantly higher. According to [employer] 2 cgm download 05/11/2023-05/24/20 23: Avg glucose 234. >250-35%, >180-56%, 70-180-9%, <70-0%, <54-0%. CV 21.1%. Reviewed download with pt, no incidence of hypoglycemia. Glucose above target fasting am meal to meal with higher carb load meal. Recommend increasing levemir from 10 to 12 units qhs. Modify fiasp to 1:10 icr. Discussed with pt increasing ozempic from 0.5mg to 1mg once weekly. Will send updated rx to pap. Reviewed with pt how to titrate basal/bolus dose according to fasting am/meal to meal glucose pattern. Pt verbalizes understanding. 3. Patient is alert, oriented and receptive to making changes or counseling. Notes: Seen for an assessment of current glucose pattern, changes in treatment plan, counseling and coordination of care related to diabetes, risks, and benefits of treatment, medications, side effects. Given handouts to reinforce concepts reviewed during counseling, see scanned notes. TOPICS REVIEWED: 1. Time was spent reviewing: a. Basic concepts of diabetes, progressive beta cell , concepts of basal/bolus/correct selin insulin requirements. Basal: The goal is fasting blood glucose of 90-130mg. IF fasting blood glucose starts to run under 100mg 3x's/ week, decrease dose by 10%. Bolus: The goal is to hold the blood glucose level steady meal to meal. If pt. is going to have increased physical activity after a meal, decrease the schedule meal dose prior to the activity by 30-50%. If pt. skips a meal do not take this dose. Correction: The goal is to correct an elevated glucose back into the 100-150mg range b. Nutrition: Concepts of healthy diet, encouraged to decrease saturated fat in diet and increase non-starchy vegetables and fruits in diet. BMI: Pt. needs to select one small change to decrease caloric intake or increase physical activity to help decrease weight. c. Correct treatment of hypoglycemia, carry a glucose source at all times on your person, in vehicles, and at bedside. Can use glucose tablets/4, four ounces of pop or juice equal to 15 G of carbohydrate. Blood glucose should be 100 mg/dl or higher when driving. d. ADA glucose goals for age and medical complexity reviewed e. Patient questions addressed 2. Activity/exercise: Encouraged to start any form of physical activity. Start low level and increase slowly to a minimal goal of 150 minutes/week. Limit activity to what is allowed by other issues such as cardiac, pulmonary or orthopedic restrictions. 3. Standards of care: Reminded to have an annual dilated eye exam, A1C every 3 months, urine testing for microalbumin once/year, check feet daily and report any cuts or sores that do not appear to be healing. 4. Meter: Plan to check blood glucose: Please check blood glucose levels 4 times/day. Back to back meals reveal effectiveness of bolus dosing. The blood glucose data is used to determine insulin doses and confirm symptoms for hypoglycemia and hyperglcyemia. 5. [facility]. Contact office if any issues or concerns with patterns of hypoglycemia, hyperglycemia, or diabetes medication issues. 6. Prescriptions: KAL PAP: Fiasp/Levemir/Ozemp ic; 2023 Re-enrollment for ozempic only. 7. Prescriptions will not be filled unless you are compliant with follow up appointments or have a follow up appointment scheduled as ordered by your provider. Refills should be requested at the time of your visit. Apr, Dietary counseling and surveillance (ICD-10 - Z71.3) see above Apr, Hyperlipidemia (ICD-10 - E78.5) 08/2022 ldl 100- on statin Apr, HTN (hypertension) (ICD-10 - I10) on arb- uncontrolled; f/u with pcp for further recommendation. Apr, retirement current use of insulin (ICD-10 - Z79.4) Apr, Vitamin B 12 deficiency (ICD-10 - E53.8) 08/2022 vit b 12 388 Apr, BMI 27.0-27.9,adult (ICD-10 - Z68.27) see above [facility] Other 08-14-2023 Evaluation note* Encounter Date Diagnosis Assessment Notes Treatment Notes Treatment Clinical Notes Jan, Type 2 diabetes mellitus with hyperglycemia (ICD-10 - E11.65) 1. Controlled, a Type 2 diabetes with A1c of 6.9%. 2. Blood glucose levels according to [employer]yan 2 cgm download 01/26/2023-02/08/2023: Avg glucose 175. >250-3%, >180-38%, 70-180-59%, <70-0%, <54-0%. CV 22.6%. Reviewed download with pt, isoated incident of hypoglycemia. Glucose above target fasting am meal to meal with higher carb load meal. Recommend increasing levemir from 10 to 11 units qhs. Reviewed with pt how to titrate basal dose according to fasting am glucose. Pt verbalizes understanding. 3. Patient is alert, oriented and receptive to making changes or counseling. Notes: Seen for an assessment of current glucose pattern, changes in treatment plan, counseling and coordination of care related to diabetes, risks, and benefits of treatment, medications, side effects. Given handouts to reinforce concepts reviewed during counseling, see scanned notes. TOPICS REVIEWED: 1. Time was spent reviewing: a. Basic concepts of diabetes, progressive beta cell , concepts of basal/bolus/correct selin insulin requirements. Basal: The goal is fasting blood glucose of 90-130mg. IF fasting blood glucose starts to run under 100mg 3x's/ week, decrease dose by 10%. Bolus: The goal is to hold the blood glucose level steady meal to meal. If pt. is going to have increased physical activity after a meal, decrease the schedule meal dose prior to the activity by 30-50%. If pt. skips a meal do not take this dose. Correction: The goal is to correct an elevated glucose back into the 100-150mg range b. Nutrition: Concepts of healthy diet, encouraged to decrease saturated fat in diet and increase non-starchy vegetables and fruits in diet. BMI: Pt. needs to select one small change to decrease caloric intake or increase physical activity to help decrease weight. c. Correct treatment of hypoglycemia, carry a glucose source at all times on your person, in vehicles, and at bedside. Can use glucose tablets/4, four ounces of pop or juice equal to 15 G of carbohydrate. Blood glucose should be 100 mg/dl or higher when driving. d. ADA glucose goals for age and medical complexity reviewed e. Patient questions addressed 2. Activity/exercise: Encouraged to start any form of physical activity. Start low level and increase slowly to a minimal goal of 150 minutes/week. Limit activity to what is allowed by other issues such as cardiac, pulmonary or orthopedic restrictions. 3. Standards of care: Reminded to have an annual dilated eye exam, A1C every 3 months, urine testing for microalbumin once/year, check feet daily and report any cuts or sores that do not appear to be healing. 4. Meter: Plan to check blood glucose: Please check blood glucose levels 4 times/day. Back to back meals reveal effectiveness of bolus dosing. The blood glucose data is used to determine insulin doses and confirm symptoms for hypoglycemia and hyperglcyemia. 5. [facility]. Contact office if any issues or concerns with patterns of hypoglycemia, hyperglycemia, or diabetes medication issues. 6. Prescriptions: KAL PAP: OZEMPIC/FIASP; 7. Prescriptions will not be filled unless you are compliant with follow up appointments or have a follow up appointment scheduled as ordered by your provider. Refills should be requested at the time of your visit. Jan, Dietary counseling and surveillance (ICD-10 - Z71.3) see above Jan, Hyperlipidemia (ICD-10 - E78.5) 08/2022 ldl 100- on statin Jan, HTN (hypertension) (ICD-10 - I10) on arb- uncontrolled; f/u with pcp for further recommendation. Jan, retirement current use of insulin (ICD-10 - Z79.4) Jan, Vitamin B 12 deficiency (ICD-10 - E53.8) 08/2022 vit b 12 388 Jan, BMI 27.0-27.9,adult (ICD-10 - Z68.27) see above [facility] Other 04-26-2023 Evaluation note* Encounter Date Diagnosis Assessment Notes Treatment Notes Treatment Clinical Notes Sep, Type 2 diabetes mellitus with hyperglycemia (ICD-10 - E11.65) 1. Controlled, a Type 2 diabetes with A1c of 6.5%. 2. Blood glucose levels according to [employer]yan 2 cgm download 10/08/2022-10/21/2022 : Avg glucose 166. >250-2%, >180-31%, 70-180-67%, <70-0%, <54-0%. CV 22.6%. Reviewed download with pt, glucose often above target from higher carb load. Pt admits to not taking care of himself, his currently in correction. Recommend continue to hold levemir; however, if fasting am glucose >130 3/7 days he is to restart levemir 10 units at , reviewed with pt how to titrate basal dose according to fasting am glucose. Pt verbalizes understanding. 3. Patient is alert, oriented and receptive to making changes or counseling. Notes: Seen for an assessment of current glucose pattern, changes in treatment plan, counseling and coordination of care related to diabetes, risks, and benefits of treatment, medications, side effects. Given handouts to reinforce concepts reviewed during counseling, see scanned notes. TOPICS REVIEWED: 1. Time was spent reviewing: a. Basic concepts of diabetes, progressive beta cell , concepts of basal/bolus/correct selin insulin requirements. Basal: The goal is fasting blood glucose of 90-130mg. IF fasting blood glucose starts to run under 100mg 3x's/ week, decrease dose by 10%. Bolus: The goal is to hold the blood glucose level steady meal to meal. If pt. is going to have increased physical activity after a meal, decrease the schedule meal dose prior to the activity by 30-50%. If pt. skips a meal do not take this dose. Correction: The goal is to correct an elevated glucose back into the 100-150mg range b. Nutrition: Concepts of healthy diet, encouraged to decrease saturated fat in diet and increase non-starchy vegetables and fruits in diet. BMI: Pt. needs to select one small change to decrease caloric intake or increase physical activity to help decrease weight. c. Correct treatment of hypoglycemia, carry a glucose source at all times on your person, in vehicles, and at bedside. Can use glucose tablets/4, four ounces of pop or juice equal to 15 G of carbohydrate. Blood glucose should be 100 mg/dl or higher when driving. d. ADA glucose goals for age and medical complexity reviewed e. Patient questions addressed 2. Activity/exercise: Encouraged to start any form of physical activity. Start low level and increase slowly to a minimal goal of 150 minutes/week. Limit activity to what is allowed by other issues such as cardiac, pulmonary or orthopedic restrictions. 3. Standards of care: Reminded to have an annual dilated eye exam, A1C every 3 months, urine testing for microalbumin once/year, check feet daily and report any cuts or sores that do not appear to be healing. 4. Meter: Plan to check blood glucose: Please check blood glucose levels 4 times/day. Back to back meals reveal effectiveness of bolus dosing. The blood glucose data is used to determine insulin doses and confirm symptoms for hypoglycemia and hyperglcyemia. 5. [facility]. Contact office if any issues or concerns with patterns of hypoglycemia, hyperglycemia, or diabetes medication issues. 6. Prescriptions: KAL PAP: OZEMPIC/FIASP; 7. Prescriptions will not be filled unless you are compliant with follow up appointments or have a follow up appointment scheduled as ordered by your provider. Refills should be requested at the time of your visit. Sep, Dietary counseling and surveillance (ICD-10 - Z71.3) see above Sep, Hyperlipidemia (ICD-10 - E78.5) 08/2022 ldl 100- on statin Sep, HTN (hypertension) (ICD-10 - I10) on arb- uncontrolled; f/u with pcp for further recommendation. 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 Dimas [facility] Other 01-24-2023 History of Present illness Narrative* Moise Ramos MD - 07/21/2022 8:41 AM EST PATIENT NAME: Gagandeep Ahn DATE: 07/21/2022 PRIMARY CARE PHYSICIAN: Kota Funes CNP ([facility]) OTHER PHYSICIANS: Dr. Brandy Banks, Dr. Salinas Portions of this encounter note have been copied from the note from 07/22/2021 and has been updated where appropriate, and reflect my current medical decision making from today. CC: This is a 71 year old male with a history of colon cancer, seen for scheduled follow-up. INTERIM HISTORY: Since the patient's last visit here his port was removed in August 2021. He underwent a surveillance colonoscopy March [address] Banks, and no abnormalities were found. Plans are to repeat the colonoscopy in 5 years. Apparently the patient is on new medications for his diabetes, and as a result has lost a great deal of weight. He has had no other significant medical changes. Overall he feels well. Since surgery he has had intermittent diarrhea based on diet, that has not changed. He denies any abdominal pain orother GI symptoms. MEDICATIONS: lamoTRIgine 25 mg (35) DsPk Take by mouth. Take 25 mg by mouth every other day during Weeks 1 and 2, THEN 25 mg once daily during Weeks 3 and 4, THEN 50 mg once daily during Week 5 hydroCHLOROthiazide (HYDRODIURIL, ESIDRIX) 12.5 mg tablet Take 25 mg by mouth q 24 HR. amLODIPine (NORVASC) 5 mg tablet Take 5 mg by mouth once daily. rosuvastatin (CRESTOR) 20 mg tablet Take 20 mg by mouth once daily. albuterol HFA (PROVENTIL HFA, VENTOLIN HFA) 90 mcg/actuation inhaler Albuterol Albuterol Sulfate Active 2 PUFF Inhalation As Directed March 31, 2019 10:06am 03-31-2019 [facility] ([id number]) busPIRone (BUSPAR) 10 mg tablet Take 10 mg by mouth three times daily. QUEtiapine (SEROQUEL) 50 mg tablet Take 50 mg by mouth twice daily. insulin detemir U-100 (LEVEMIR) 100 unit/mL (3 mL) injection pen insulin detemir Insulin Detemir U-100 Active 17 UNIT Subcutaneous Daily March 31, 2019 10:08am 03-31-2019 [facility] ([id number]) tiotropium (SPIRIVA) 18 mcg inhalation capsule tiotropium Tiotropium [place] Active 2 PUFF Inhalation Daily March 31, 2019 10:06am 03-31-2019 [facility] ([id number]) losartan (COZAAR) 50 mg tablet Take 50 mg by mouth once daily. diphenoxylate-atropine (LOMOTIL) 2.5-0.025 mg per tablet Take 1 tablet by mouth four times daily asneeded for up to 60 days. sildenafil (VIAGRA) 100 mg tablet Take 1 tablet by mouth as needed. iv contrast (will be provided with radiology test) CT Chest ABD/PEL-Inject, intravenously, once for1 dose.No IV access, insert saline lock prior to the beginning of sedation, infusion, injection of imaging exam. Discontinue saline lock post exam. If Pt. has a central line or IVAD, may access for administration according to line specific nursing protocol. Once exam is complete flush line and de-access according to line specific nursing protocol in the CT contrast administration guidelines link.(Patient not taking: Reported on 07/22/2021 ) enteric contrast (will be provided with radiology test) For CT CHESTABD/PEL W IVCON Routine order Administer, As Directed One Time Only, via Oral, Rectal, both Oral and Rectal, Enteric Tube, Stoma orIndwelling Catheter, Enteric Contrast as designated per enteric contrast guidelines (Patient not taking: Reported on 07/22/2021 ) calcium-cholecalciferol, D3, (OSCAL+D 250) 250-125 mg-unit per tablet Take 2 tablets by mouth twicedaily. iv contrast (will be provided with radiology test) CT Chest ABD/PEL-Inject, intravenously, once for1 dose.No IV access, insert saline lock prior to the beginning of sedation, infusion, injection of imaging exam. Discontinue saline lock post exam. If Pt. has a central line or IVAD, may access for administration according to line specific nursing protocol. Once exam is complete flush line and de-access according to line specific nursing protocol in the CT contrast administration guidelines link.(Patient not taking: Reported on 07/22/2021 ) enteric contrast (will be provided with radiology test) For CT CHESTABD/PEL W IVCON Routine order Administer, As Directed One Time Only, via Oral, Rectal, both Oral and Rectal, Enteric Tube, Stoma orIndwelling Catheter, Enteric Contrast as designated per enteric contrast guidelines (Patient not taking: Reported on 07/22/2021 ) aspirin, enteric coated (ASPIRIN, ENTERIC COATED) 81 mg EC tablet Take 81 mg by mouth. glyBURIDE (DIABETA) 5 mg tablet Take 5 mg by mouth. metoprolol succinate ER (TOPROL XL) 50 mg 24 hr tablet Take 50 mg by mouth. iv contrast (will be provided with radiology test) CT Chest ABD/PEL-Inject, intravenously, once for1 dose.No IV access, insert saline lock prior to the beginning of sedation, infusion, injection of imaging exam. Discontinue saline lock post exam. If Pt. has a central line or IVAD, may access for administration according to line specific nursing protocol. Once exam is complete flush line and de-access according to line specific nursing protocol in the CT contrast administration guidelines link.(Patient not taking: Reported on 07/22/2021 ) enteric contrast (will be provided with radiology test) For CT CHESTABD/PEL W IVCON Routine order Administer, As Directed One Time Only, via Oral, Rectal, both Oral and Rectal, Enteric Tube, Stoma orIndwelling Catheter, Enteric Contrast as designated per enteric contrast guidelines (Patient not taking: Reported on 07/22/2021 ) iv contrast (radiology procedure) CT Chest ABD/PEL-Inject, intravenously, once for 1 dose.No IV access, insert saline lock prior to the beginning of sedation, infusion, injection of imaging exam. Discontinue saline lock post exam. If Pt. has a central line or IVAD, may access for administration according to line specific nursing protocol. Once exam is complete flush line and de-access according to line specific nursing protocol in the CT contrast administration guidelines link. (Patient not taking: Reported on 07/22/2021 ) enteric contrast (radiology procedure) For CT CHESTABD/PEL W IVCON Routine order Administer, As Directed One Time Only, via Oral, Rectal, both Oral and Rectal, Enteric Tube, Stoma or Indwelling Catheter, Enteric Contrast as designated per enteric contrast guidelines (Patient not taking: Reported on07/22/2021 ) gabapentin (NEURONTIN) 300 mg capsule 600 mg. OLANZapine (ZYPREXA) 2.5 mg tablet Take 1 tablet by mouth daily at bedtime. prochlorperazine (COMPAZINE) 10 mg tablet Take 1 tablet by mouth every 4 hours as needed. cloNIDine HCl (CATAPRES) 0.1 mg tablet HYDROcodone-acetaminophen (NORCO) 5-325 mg per tablet ondansetron (ZOFRAN, HYDROCHLORIDE,) 8 mg tablet Take 1 tablet by mouth every 8 hours as needed. metroNIDAZOLE (FLAGYL) 500 mg tablet losartan-hydrochlorothiazide (HYZAAR) 50-12.5 mg per tablet Take 1 tablet by mouth once daily. atorvastatin (LIPITOR) 40 mg tablet Take 40 mg by mouth once daily. PARoxetine (PAXIL) 30 mg tablet Take 30 mg by mouth once daily. metFORMIN (GLUCOPHAGE) 850 mg tablet Take 850 mg by mouth twice daily with meals. polyethylene glycol 3350 (MIRALAX) 17 gram packet Take 17 g by mouth once daily. liraglutide (VICTOZA 3-MEGHAN) 0.6 mg/0.1 mL (18 mg/3 mL) pnij Inject 3 mL subcutaneously once daily. latanoprost (XALATAN) 0.005 % ophthalmic solution Use 1 Drop in both eyes daily at bedtime. brimonidine (ALPHAGAN P) 0.1 % drop Use 1 Drop in both eyes three times daily. ALLERGIES: Patient has no known allergies. PAST MEDICAL HISTORY: PAST MEDICAL HISTORY Diagnosis Date Colon cancer (HCC) Port catheter in place PAST SURGICAL HISTORY: No past surgical history on file. REVIEW OF SYSTEMS: General: No weight loss, malaise or fevers. HEENT: Negative for frequent or significant headaches. No changes in hearing or vision, no nose bleeds or other nasal problems. Respiratory: Negative for cough, wheezing or shortness of breath. Cardiovascular: Negative for chest pain, leg swelling or palpitations. GI: Negative for abdominal discomfort, blood in stools or black stools or change in bowel habits. Diarrhea- See HPI. : No history of dysuria, frequency or incontinence. Musculoskeletal: Negative for joint pain or swelling, back pain and muscle pain. Skin: Negative for lesions, rash and itching. Hematology/Lymphology: Negative for prolonged bleeding, bruising easily or swollen nodes. Neuro: No history of headaches, syncope, paralysis, seizures or tremors. PHYSICAL EXAM: Vitals: BP 107/64 Pulse (!) 58 Temp 36.4 C (97.6 F) (Temporal) Resp 18 Ht 176.5 cm (5' 9.49 ) Wt 76.1 kg (167 lb 12.8 oz) SpO2 97% BMI 24.43 kg/m ECOG 0 Exam limited to gross visualization where appropriate due to COVID-19. Gen.: This is an age-appropriate patient in no acute distress. Head: Appears atraumatic with no visible lesions. Eyes: Pupils equally round and reactive to light, extraocular muscles are intact. Neck: Supple. Mouth: Mucous membranes appeared to be moist. Respiratory: Appears to be respiring comfortably. Neurologic: Nonfocal to gross visualization. Alert and oriented 3. Psychiatric: No evidence of inappropriate anxiety or depression. Skin: Visible areas of skin without rash, lesions, wounds or petechiae. PATHOLOGY: 04/07/2016 Left hemicolectomy and lymph node dissection ([facility]) Invasive moderately differentiated adenocarcinoma of the descending colon, extending into the pericolonic adipose tissue. Surgical margins negative for malignancy. 2 of 16 lymph nodes positive for metastatic carcinoma. Portions of omentum without significant pathologic findings. Histologic features suggestive of microsatellite instability. LABORATORY DATA: Hemoglobin (g/dL) Date Value 07/21/2022 13.7 07/22/2021 13.5 Hematocrit (%) Date Value 07/21/2022 41.5 07/22/2021 41.3 WBC (k/uL) Date Value 07/21/2022 9.03 07/22/2021 9.17 Platelet Count (k/uL) Date Value 07/21/2022 240 07/22/2021 229 RADIOLOGY/OTHER STUDIES: 01/10/2021 CT chest, abdomen, pelvis ([facility]) Stable findings. 06/04/2020 CT chest ([facility]) Stable findings. 06/04/2020 CT abdomen/pelvis ([facility]) No malignant or metastatic disease. Tiny liver and left renal cyst. Enlarged prostate. Cholelithiasis. 07/06/2019 Bone density exam ([facility]) Normal/osteopenia of left femoral neck and forearm ASSESSMENT/PLAN: 1. 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 04/07/2016 the patient underwent a left hemicolectomy and lymph node dissection. Final pathology revealed invasive moderately differentiated adenocarcinoma of the colon, extending into the pericolonic adipose tissue, margins negative. 2 of 16 lymph nodes involved with metastases. Postop the patient received adjuvant chemotherapy with FOLFOX x 6 cycles completed October 2016. Since then he has had no evidence of disease recurrence. Most recent staging CT scans December 2020 negative. His most recent colonoscopy March 2022 was negative. At this time we will continue routine follow-up. Now that it has been more than 5 years from diagnosis I will see him on a yearly basis with labs. We will stage with CT scans as needed if suspicious signs or symptoms develop. He will continue to undergo a surveillance colonoscopy every 5 years, next to be scheduled for March 2027. 2. Type 2 diabetes mellitus (HCC) - ICD9: 250.00, ICD10: E11.9 Stable on current medications, continue management per PCP. 3. Essential hypertension - ICD9: 401.9, ICD10: I10 Stable on current medications, continue management per PCP. 4. History of depression Stable on current medications, continue management per PCP. 5. History of multiple compression fractures, suspected osteoporosis Previous bony changes suggestive of compression fractures. Bone density exam 07/06/2019 confirmed mild osteopenia. Currently stable. Continue management per PCP. Moise Ramos MD CC: Dr. Brandy Banks [facility] [place]* Encounter Date Diagnosis Assessment Notes Treatment Notes Treatment Clinical Notes Jun, Type 2 diabetes mellitus with hyperglycemia (ICD-10 - E11.65) 1. Controlled, a Type 2 diabetes with A1c of 6.7 %. 2. Blood glucose levels according to ryan 2 cgm download 07/07/2022-07/20/2022 : Avg glucose 139. >250-0%, >180-9%, 70-180-91%, <70-0%, <54-0%. CV 22.4%. Reviewed download with pt, denies using levemir. Infrequently using fiasp. Recommend he continue to hold levemir; however, if fasting am glucose >130 3/7 days he is to restart levemir 10 units at , reviewed with pt how to titrate basal dose according to fasting am glucose. Pt verbalizes understanding. 3. Patient is alert, oriented and receptive to making changes or counseling. Notes: Seen for an assessment of current glucose pattern, changes in treatment plan, counseling and coordination of care related to diabetes, risks, and benefits of treatment, medications, side effects. Given handouts to reinforce concepts reviewed during counseling, see scanned notes. TOPICS REVIEWED: 1. Time was spent reviewing: a. Basic concepts of diabetes, progressive beta cell , concepts of basal/bolus/correct selin insulin requirements. Basal: The goal is fasting blood glucose of 90-130mg. IF fasting blood glucose starts to run under 100mg 3x's/ week, decrease dose by 10%. Bolus: The goal is to hold the blood glucose level steady meal to meal. If pt. is going to have increased physical activity after a meal, decrease the schedule meal dose prior to the activity by 30-50%. If pt. skips a meal do not take this dose. Correction: The goal is to correct an elevated glucose back into the 100-150mg range b. Nutrition: Concepts of healthy diet, encouraged to decrease saturated fat in diet and increase non-starchy vegetables and fruits in diet. BMI: Pt. needs to select one small change to decrease caloric intake or increase physical activity to help decrease weight. c. Correct treatment of hypoglycemia, carry a glucose source at all times on your person, in vehicles, and at bedside. Can use glucose tablets/4, four ounces of pop or juice equal to 15 G of carbohydrate. Blood glucose should be 100 mg/dl or higher when driving. d. ADA glucose goals for age and medical complexity reviewed e. Patient questions addressed 2. Activity/exercise: Encouraged to start any form of physical activity. Start low level and increase slowly to a minimal goal of 150 minutes/week. Limit activity to what is allowed by other issues such as cardiac, pulmonary or orthopedic restrictions. 3. Standards of care: Reminded to have an annual dilated eye exam, A1C every 3 months, urine testing for microalbumin once/year, check feet daily and report any cuts or sores that do not appear to be healing. 4. Meter: Plan to check blood glucose: Please check blood glucose levels 4 times/day. Back to back meals reveal effectiveness of bolus dosing. The blood glucose data is used to determine insulin doses and confirm symptoms for hypoglycemia and hyperglcyemia. 5. [facility] Contact office if any issues or concerns with patterns of hypoglycemia, hyperglycemia, or diabetes medication issues. 6. Prescriptions: Kal pap for Ozempic, Fiasp. 7. Prescriptions will not be filled unless you are compliant with follow up appointments or have a follow up appointment scheduled as ordered by your provider. Refills should be requested at the time of your visit. Jun, Dietary counseling and surveillance (ICD-10 - Z71.3) see above Jun, Hyperlipidemia (ICD-10 - E78.5) 07/2021 ldl 27 at target- on statin Jun, HTN (hypertension) (ICD-10 - I10) on arb Jun, retirement current use of insulin (ICD-10 - Z79.4) Jun, Hypoglycemia associated with type 2 diabetes mellitus (ICD-10 - E11.649) Jun, Vitamin B 12 deficiency (ICD-10 - E53.8) 07/2021 vit b 12 >1500 Jun, BMI 26.0-26.9,adult (ICD-10 - Z68.26) 6 pound weight loss from last visit, continue with weight loss efforts [facility] Other 09-29-2022 Evaluation note* Encounter Date Diagnosis Assessment Notes Treatment Notes Treatment Clinical Notes Feb, Type 2 diabetes mellitus with hyperglycemia (ICD-10 - E11.65) 1. Controlled, a Type 2 diabetes with A1c of 6.4 %. 2. Blood glucose levels according to ryan 2 cgm download 03/13/2022-03/26/2022 : Avg glucose 139. >250-0%, >180-6%, 70-180-94%, <70-0%, <54-0%. CV 20.2%. Reviewed download with pt, pt reports he only took levemir 40 units one time over the past week, if blood sugars was normal wasn't taking it, infrequently used fiasp. Recommend holding levemir; however, if fasting am glucose >130 he is to restart levemir 10 units at hs, reviewed with pt how to titrate basal dose according to fasting am glucose. Will stop meal dosing and modify corrective scale from 1:20 to 1:40 ac (hs if >200 half dose). Pt verbalizes understanding. 3. Patient is alert, oriented and receptive to making changes or counseling. Notes: Seen for an assessment of current glucose pattern, changes in treatment plan, counseling and coordination of care related to diabetes, risks, and benefits of treatment, medications, side effects. Given handouts to reinforce concepts reviewed during counseling, see scanned notes. TOPICS REVIEWED: 1. Time was spent reviewing: a. Basic concepts of diabetes, progressive beta cell , concepts of basal/bolus/correct selin insulin requirements. Basal: The goal is fasting blood glucose of 90-130mg. IF fasting blood glucose starts to run under 100mg 3x's/ week, decrease dose by 10%. Bolus: The goal is to hold the blood glucose level steady meal to meal. If pt. is going to have increased physical activity after a meal, decrease the schedule meal dose prior to the activity by 30-50%. If pt. skips a meal do not take this dose. Correction: The goal is to correct an elevated glucose back into the 100-150mg range b. Nutrition: Concepts of healthy diet, encouraged to decrease saturated fat in diet and increase non-starchy vegetables and fruits in diet. BMI: Pt. needs to select one small change to decrease caloric intake or increase physical activity to help decrease weight. c. Correct treatment of hypoglycemia, carry a glucose source at all times on your person, in vehicles, and at bedside. Can use glucose tablets/4, four ounces of pop or juice equal to 15 G of carbohydrate. Blood glucose should be 100 mg/dl or higher when driving. d. ADA glucose goals for age and medical complexity reviewed e. Patient questions addressed 2. Activity/exercise: Encouraged to start any form of physical activity. Start low level and increase slowly to a minimal goal of 150 minutes/week. Limit activity to what is allowed by other issues such as cardiac, pulmonary or orthopedic restrictions. 3. Standards of care: Reminded to have an annual dilated eye exam, A1C every 3 months, urine testing for microalbumin once/year, check feet daily and report any cuts or sores that do not appear to be healing. 4. Meter: Plan to check blood glucose: Please check blood glucose levels 4 times/day. Back to back meals reveal effectiveness of bolus dosing. The blood glucose data is used to determine insulin doses and confirm symptoms for hypoglycemia and hyperglcyemia. 5. [facility]. Contact office if any issues or concerns with patterns of hypoglycemia, hyperglycemia, or diabetes medication issues. 6. Prescriptions: Kal pap. Feb, Dietary counseling and surveillance (ICD-10 - Z71.3) see above Feb, Hyperlipidemia (ICD-10 - E78.5) 07/2021 ldl 27 at target- on statin Feb, HTN (hypertension) (ICD-10 - I10) on arb Feb, retirement current use of insulin (ICD-10 - Z79.4) Feb, Hypoglycemia associated with type 2 diabetes mellitus (ICD-10 - E11.649) Feb, Vitamin B 12 deficiency (ICD-10 - E53.8) 07/2021 vit b 12 >1500 Feb, BMI 27.0-27.9,adult (ICD-10 - Z68.27) 8 pound weight loss from last visit, continue with weight loss efforts [facility] Other 06-14-2022 Evaluation note* Encounter Date Diagnosis Assessment Notes Treatment Notes Treatment Clinical Notes Nov, Other Summary of Visi t: (A) discussed impact of skipping meals and/or overeating on BG levels (B) discussed heart nehemias nutrition tips including low sodium and heart healthy fats Patient set the following goals: - get back in to routine of breakfast lunch and dinner- MET - start walking daily, even just a little bit - MET [facility] Other 03-16-2022 Evaluation note* Encounter Date Diagnosis Assessment Notes Treatment Notes Treatment Clinical Notes Aug, Other Summary of Visit: (A) discussed impact of skipping meals and/or overeating on BG levels (B) briefly reviewed plate method, (C) discussed benefits of exercise after meals Patient set the following goals: - add both corrective and meal time inuslin together; MET; pt denies questions or issues - call office if BG are running low; N/A - NEW: get back in to routine of breakfast lunch and dinner - NEW: start walking daily, even just a little bit [facility] Other 03-01-2022 Evaluation note* Encounter Date Diagnosis Assessment Notes Treatment Notes Treatment Clinical Notes Aug, Type 2 diabetes mellitus with hyperglycemia (ICD-10 - E11.65) 1. Controlled, a Type 2 diabetes with A1c of 6.9% improved from 07/14/2021 a1c was 8.5%. 2. Blood glucose levels improved from last visit. According to [facility] cgm download 08/13/2021-08/26/2021: Avg glucose 132. >250-0%, >180-12%, 70-180-88%, <70-0%, <54-0%. CV 27.5%. Reviewed download with pt overall glucose pattern stable. Pt has experiences nausea over the pat week, recommend ozempic back to 0.25mg and increase by 1 extra click each week until reaches 0.5mg once weekly without nausea. He verbalizes understanding. 3. Patient is alert, oriented and receptive to making changes or counseling. Notes: Seen for an assessment of current glucose pattern, changes in treatment plan, counseling and coordination of care related to diabetes, risks, and benefits of treatment, medications, side effects. Given handouts to reinforce concepts reviewed during counseling, see scanned notes. TOPICS REVIEWED: 1. Time was spent reviewing: a. Basic concepts of diabetes, progressive beta cell , concepts of basal/bolus/correct selin insulin requirements. Basal: The goal is fasting blood glucose of 90-130mg. IF fasting blood glucose starts to run under 100mg 3x's/ week, decrease dose by 10%. Bolus: The goal is to hold the blood glucose level steady meal to meal. If pt. is going to have increased physical activity after a meal, decrease the schedule meal dose prior to the activity by 30-50%. If pt. skips a meal do not take this dose. Correction: The goal is to correct an elevated glucose back into the 100-150mg range b. Nutrition: Concepts of healthy diet, encouraged to decrease saturated fat in diet and increase non-starchy vegetables and fruits in diet. BMI: Pt. needs to select one small change to decrease caloric intake or increase physical activity to help decrease weight. c. Correct treatment of hypoglycemia, carry a glucose source at all times on your person, in vehicles, and at bedside. Can use glucose tablets/4, four ounces of pop or juice equal to 15 G of carbohydrate. Blood glucose should be 100 mg/dl or higher when driving. d. ADA glucose goals for age and medical complexity reviewed e. Patient questions addressed 2. Activity/exercise: Encouraged to start any form of physical activity. Start low level and increase slowly to a minimal goal of 150 minutes/week. Limit activity to what is allowed by other issues such as cardiac, pulmonary or orthopedic restrictions. 3. Standards of care: Reminded to have an annual dilated eye exam, A1C every 3 months, urine testing for microalbumin once/year, check feet daily and report any cuts or sores that do not appear to be healing. 4. Meter: Plan to check blood glucose: Please check blood glucose levels 4 times/day. Back to back meals reveal effectiveness of bolus dosing. The blood glucose data is used to determine insulin doses and confirm symptoms for hypoglycemia and hyperglcyemia. 5. [facility]. Contact office if any issues or concerns with patterns of hypoglycemia, hyperglycemia, or diabetes medication issues. 6. Prescriptions: Sample ozempic 0.5mg x1 pen given today. Has been approved for pap through [facility] humalog will change to fiasp- reviewed with pt dosing fiasp 5 minutes ac vs humalog at 15 minutes ac. Pt verbalizes understanding. 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) Aug, Hypoglycemia associated with type 2 diabetes mellitus (ICD-10 - E11.649) Aug, Vitamin B 12 deficiency (ICD-10 - E53.8) 07/2021 vit b 12 >1500 Aug, BMI 28.0-28.9,adult (ICD-10 - Z68.28) 12 pound weight loss from last visit, continue with weight loss efforts [facility] Other 02-09-2022 Evaluation note* Encounter Date Diagnosis Assessment Notes Treatment Notes Treatment Clinical Notes Jul, Other Summary of Visit: (A) reviewed prescribed insulin dosing using both corrective and meal time insulin (B) reviewed plate method, carb counting and small / medium / large meals Patient set the following goals: - add both corrective and meal time inuslin together - call office if BG are running low [facility] Other 01-31-2022 Evaluation note* Encounter Date Diagnosis Assessment Notes Treatment Notes Treatment Clinical Notes Jun, Type 2 diabetes mellitus with hyperglycemia (ICD-10 - E11.65) Patient in today with for review of blood glucose logs, food logs, and insulin dosing. Patient's personal Ryan meter was downloaded with ranges between lowest 69-289 highest for the past 14 days. Average reading 151 mg/dl. Time in ranges very high 4%, high 16%, target range 80%, low 0%, and very low 0%. Glucose variability 29.7%. Patient has been checking his blood sugars ac, hs with a glucose goal of 90-130 ac 120-180 hs. Patient does understand [id number] meal dosing and adding ICS, discussed with patient portioning foods and educated pt/ how to count carbs, giving a target goal of 60g-75g carbs per meal. Patient has been using corrective scale 1:20 before meals and 1:7 carb ratio. Ryan 2 downloaded report and discussed with Dajuan Cummings APRN. Per [facility] to provide patient with Ryan 2 sensor sample while patient awaits shipment from [facility] for Ryan order and approval for patient assistance. Discussed meal planning and reviewed use of use of corrective scale. Continue taking Levemir, but decrease dose to 40 units SQ hs. Encouraged to continue logging food, insulin tid, glucose, and testing before meals and bedtime. Sensor is due today to be changed. Patient cleansed posterior side of left upper arm with alcohol then applied own ryan 2 sensor with no issues. GrifGrip adhesive also applied for extra security. All questions and concerns addressed. Encouraged patient to follow up for next appointment. Privided DME phone number to pt, will call [facility] consumer sales representative to check on Ryan sensor order. 90 minutes was spent on education by Isabella BAY, RN. Reviewed ryan cgm download 07/15/21-: Avg glucose 151. >250-4%, >180-16%, 70-180-80%, <70-0%, <54-0%. CV 29.7%. Noted 07/27-07/28 early am glucose <70 recommend reducing levemir by 2 units. Corinna TIMMONS, NIKOLE-C, BC-ADM [facility] Other 01-25-2022 NoteHNO ID: [id number] Author: Moise Ramos MD Service: ? Author Type: Physician Type: Progress Notes Filed: 07/22/2021 9:06 PM Note Text: PATIENT NAME: Gagandeep Ahn DATE: 07/22/2021 PRIMARY CARE PHYSICIAN: Kota Funes CNP ([facility]) OTHER PHYSICIANS: Dr. Brandy Banks, Dr. Salinas Portions of this encounter note have been copied from the note from 01/07/2021 and has been updated where appropriate, and reflect my current medical decision making from today. CC: This is a 70 year old male with a history of colon cancer, seen for scheduled follow-up. INTERIM HISTORY: Since the patient's last visit here he has had no significant medical changes. As before he has frequent diarrhea, unchanged. No abdominal pain or other GI symptoms. Overall he feels fairly well with no particular complaints. MEDICATIONS: lamoTRIgine 25 mg (35) DsPk Take by mouth. Take 25 mg by mouth every other day during Weeks 1 and 2, THEN 25 mg once daily during Weeks 3 and 4, THEN 50 mg once daily during Week 5 hydroCHLOROthiazide (HYDRODIURIL, ESIDRIX) 12.5 mg tablet Take 25 mg by mouth q 24 HR. amLODIPine (NORVASC) 5 mg tablet Take 5 mg by mouth once daily. rosuvastatin (CRESTOR) 20 mg tablet Take 20 mg by mouth once daily. albuterol HFA (PROVENTIL HFA, VENTOLIN HFA) 90 mcg/actuation inhaler Albuterol Albuterol Sulfate Active 2 PUFF Inhalation As Directed March 31, 2019 10:06am 03-31-2019 [facility] ([id number]) busPIRone (BUSPAR) 10 mg tablet Take 10 mg by mouth three times daily. QUEtiapine (SEROQUEL) 50 mg tablet Take 50 mg by mouth twice daily. insulin detemir U-100 (LEVEMIR) 100 unit/mL (3 mL) injection pen insulin detemir Insulin Detemir U-100 Active 17 UNIT Subcutaneous Daily March 31, 2019 10:08am 03-31-2019 [facility] ([id number]) tiotropium (SPIRIVA) 18 mcg inhalation capsule tiotropium Tiotropium [place] Active 2 PUFF Inhalation Daily March 31, 2019 10:06am 03-31-2019 [facility] ([id number]) losartan (COZAAR) 50 mg tablet Take 50 mg by mouth once daily. diphenoxylate-atropine (LOMOTIL) 2.5-0.025 mg per tablet Take 1 tablet by mouth four times daily as needed for up to 60 days. sildenafil (VIAGRA) 100 mg tablet Take 1 tablet by mouth as needed. iv contrast (will be provided with radiology test) CT Chest ABD/PEL-Inject, intravenously, once for 1 dose.No IV access, insert saline lock prior to the beginning of sedation, infusion, injection of imaging exam. Discontinue saline lock post exam. If Pt. has a central line or IVAD, may access for administration according to line specific nursing protocol. Once exam is complete flush line and de-access according to line specific nursing protocol in the CT contrast administration guidelines link. enteric contrast (will be provided with radiology test) For CT CHESTABD/PEL W IVCON Routine order Administer, As Directed One Time Only, via Oral, Rectal, both Oral and Rectal, Enteric Tube, Stoma or Indwelling Catheter, Enteric Contrast as designated per enteric contrast guidelines calcium-cholecalciferol, D3, (OSCAL+D 250) 250-125 mg-unit per tablet Take 2 tablets by mouth twice daily. iv contrast (will be provided with radiology test) CT Chest ABD/PEL-Inject, intravenously, once for 1 dose.No IV access, insert saline lock prior to the beginning of sedation, infusion, injection of imaging exam. Discontinue saline lock post exam. If Pt. has a central line or IVAD, may access for administration according to line specific nursing protocol. Once exam is complete flush line and de-access according to line specific nursing protocol in the CT contrast administration guidelines link. enteric contrast (will be provided with radiology test) For CT CHESTABD/PEL W IVCON Routine order Administer, As Directed One Time Only, via Oral, Rectal, both Oral and Rectal, Enteric Tube, Stoma or Indwelling Catheter, Enteric Contrast as designated per enteric contrast guidelines aspirin, enteric coated (ASPIRIN, ENTERIC COATED) 81 mg EC tablet Take 81 mg by mouth. glyBURIDE (DIABETA) 5 mg tablet Take 5 mg by mouth. metoprolol succinate ER (TOPROL XL) 50 mg 24 hr tablet Take 50 mg by mouth. iv contrast (will be provided with radiology test) CT Chest ABD/PEL-Inject, intravenously, once for 1 dose.No IV access, insert saline lock prior to the beginning of sedation, infusion, injection of imaging exam. Discontinue saline lock post exam. If Pt. has a central line or IVAD, may access for administration according to line specific nursing protocol. Once exam is complete flush line and de-access according to line specific nursing protocol in the CT contrast administration guidelines link. enteric contrast (will be provided with radiology test) For CT CHESTABD/PEL W IVCON Routine order Administer, As Directed One Time Only, via Oral, Rectal, both Oral and Rectal, Enteric Tube, Stoma or Indwelling Cathet (more content not included)...[facility]01-17-2022 Evaluation note* Encounter Date Diagnosis Assessment Notes Treatment Notes Treatment Clinical Notes Jun, Type 2 diabetes mellitus with hyperglycemia (ICD-10 - E11.65) 1. Uncontrolled, a Type 2 diabetes with A1c of 8.5% 2. Blood glucose levels variable with highest reading of 524 and lowest 81. Pt with concern about cost of his diabetes medications. Will modify his basal/bolus/correc tive dosing. Recommend max basal dose of 42 units/day according to weight. Levemir 42 units qhs. Humalog 1:7 carb ratio and 1:20 corrective scale ac tid. Discussed with pt adding glp1. Reviewed common s/e. No hx mtc/pancreatitis/m en. Pt agreeable to starting ozempic. Reviewed dosing ozempic 0.25mg once weekly x4 weeks then increase to 0.5mg once weekly. Pt agreeable to wearing sample ryan 2 cgm. Pt was given log book instructed to log glucose, meals, and insulin dosing and bring to f/u apt in 2 weeks for review. 3. Patient is alert, oriented and receptive to making changes or counseling. Notes: Seen for 90 minutes for an assessment of current glucose pattern, changes in treatment plan, counseling and coordination of care related to diabetes, risks, and benefits of treatment, medications, side effects. Given handouts to reinforce concepts reviewed during counseling, see scanned notes. TOPICS REVIEWED: 1. Time was spent reviewing: a. Basic concepts of diabetes, progressive beta cell , concepts of basal/bolus/correc tive insulin requirements. Basal: The goal is fasting blood glucose of 90-130mg. IF fasting blood glucose starts to run under 100mg 3x's/ week, decrease dose by 10%. Bolus: The goal is to hold the blood glucose level steady meal to meal. If pt. is going to have increased physical activity after a meal, decrease the schedule meal dose prior to the activity by 30-50%. If pt. skips a meal do not take this dose. Correction: The goal is to correct an elevated glucose back into the 100-150mg range b. Nutrition: Concepts of healthy diet, encouraged to decrease saturated fat in diet and increase non-starchy vegetables and fruits in diet. BMI: Pt. needs to select one small change to decrease caloric intake or increase physical activity to help decrease weight. c. Correct treatment of hypoglycemia, carry a glucose source at all times on your person, in vehicles, and at bedside. Can use glucose tablets/4, four ounces of pop or juice equal to 15 G of carbohydrate. Blood glucose should be 100 mg/dl or higher when driving. d. ADA glucose goals for age and medical complexity reviewed e. Patient questions addressed 2. Activity/exercise: Encouraged to start any form of physical activity. Start low level and increase slowly to a minimal goal of 150 minutes/week. Limit activity to what is allowed by other issues such as cardiac, pulmonary or orthopedic restrictions. 3. Standards of care: Reminded to have an annual dilated eye exam, A1C every 3 months, urine testing for microalbumin once/year, check feet daily and report any cuts or sores that do not appear to be healing. 4. Meter: Plan to check blood glucose: Please check blood glucose levels 4 times/day. Back to back meals reveal effectiveness of bolus dosing. The blood glucose data is used to determine insulin doses and confirm symptoms for hypoglycemia and hyperglcyemia. 5. [facility] Contact office if any issues or concerns with patterns of hypoglycemia, hyperglycemia, or diabetes medication issues. 6. Prescriptions: Sample ozempic 0.5mg x1 pen, sample ryan 2 cgm. Application for kal will apply for levemir, ozempic, and fiasp to take place of Qraved. Sent order for ryan 2 cgm to dme. 7. F/u apt in two weeks with airport traffic controller for cgm download/review log book. 8. 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 Pt. currently using insulin injections 3 times/day with insulin to carb ratio/corrective factor and requires frequent self adjustment of insulin based on carbohydrate intake, physical activity blood glucose monitoring. A CGM would improve ease of access to glucose results and reduce risk of hypoglcyemia/hyper glycemia. Jun, BMI 29.0-29.9,adult (ICD-10 - Z68.29) Jun, Vitamin B 12 deficiency (ICD-10 - E53.8) Jun, Other Gagandeep and his , Marissa, were instructed on Gagandeep's new insulin routine, Ozempic, and Freestyle Ryan 2. The patient understands the small, medium, and large meal doses, and can add the SS accordingly. He was given an example and appropriatly chose the dose. He was able to administer 0.25mg of Ozempic successfully in his left lower abdominal quad. His phone was set up with the Freestyle Ryan 2 damir and he was given a sample Ryan 2 sensor. Gagandeep's , Marissa applied the sensor to the back of Gagandeep's right arm successfully and Gagandeep scanned it with his phone to start it. 60 minutes was spent educating the patient by Jenna Hennessy RN. [employer] Other 07-13-2021 NoteHNO ID: [id number] Author: Stephani Ruelas APRN.BUSHWALKING GUIDE Service: ? Author Type: Nurse Practitioner Type: Progress Notes Filed: 01/07/2021 3:45 PM Note Text: PATIENT NAME: Gagandeep Ahn DATE: 01/07/2021 (Elements copied from Moise Ramos MD note dated 07/22/2020 , have been reviewed and updated where appropriate, and all reflect current assessment and medical decision making during today's encounter, January 07, 2021) PRIMARY CARE PHYSICIAN: Kota Funes CNP ([facility]) OTHER PHYSICIANS: Dr. Brandy Banks, Dr. Salinas CC: This is a 70 year old male with a history of colon cancer, seen for scheduled follow-up (prior patient of Dr. Barker). INTERIM HISTORY: Gagandeep Ahn returns for a 6-month follow-up. Since his last visit there has been no significant medical changes. He denies any change in bowel habits. He states that 99.9% of the time his stools are diarrhea. He does take over the counter antidiarrheal medications. He denies any blood in his stools. No abdominal pain or other GI complaints. He denies any unusual pain. No cough, shortness of breath or other pulmonary symptoms. Overall, doing well with no new complaints today. MEDICATIONS: lamoTRIgine 25 mg (35) DsPk Take by mouth. Take 25 mg by mouth every other day during Weeks 1 and 2, THEN 25 mg once daily during Weeks 3 and 4, THEN 50 mg once daily during Week 5 hydroCHLOROthiazide (HYDRODIURIL, ESIDRIX) 12.5 mg tablet Take 25 mg by mouth q 24 HR. amLODIPine (NORVASC) 5 mg tablet Take 5 mg by mouth once daily. rosuvastatin (CRESTOR) 20 mg tablet Take 20 mg by mouth once daily. albuterol HFA (PROVENTIL HFA, VENTOLIN HFA) 90 mcg/actuation inhaler Albuterol Albuterol Sulfate Active 2 PUFF Inhalation As Directed March 31, 2019 10:06am 03-31-2019 [facility] ([id number]) busPIRone (BUSPAR) 10 mg tablet Take 10 mg by mouth three times daily. QUEtiapine (SEROQUEL) 50 mg tablet Take 50 mg by mouth twice daily. insulin detemir U-100 (LEVEMIR) 100 unit/mL (3 mL) injection pen insulin detemir Insulin Detemir U-100 Active 17 UNIT Subcutaneous Daily March 31, 2019 10:08am 03-31-2019 [facility] ([id number]) tiotropium (SPIRIVA) 18 mcg inhalation capsule tiotropium Tiotropium [place] Active 2 PUFF Inhalation Daily March 31, 2019 10:06am 03-31-2019 [facility] ([id number]) losartan (COZAAR) 50 mg tablet Take 50 mg by mouth once daily. diphenoxylate-atropine (LOMOTIL) 2.5-0.025 mg per tablet Take 1 tablet by mouth four times daily as needed for up to 60 days. sildenafil (VIAGRA) 100 mg tablet Take 1 tablet by mouth as needed. iv contrast (will be provided with radiology test) CT Chest ABD/PEL-Inject, intravenously, once for 1 dose.No IV access, insert saline lock prior to the beginning of sedation, infusion, injection of imaging exam. Discontinue saline lock post exam. If Pt. has a central line or IVAD, may access for administration according to line specific nursing protocol. Once exam is complete flush line and de-access according to line specific nursing protocol in the CT contrast administration guidelines link. enteric contrast (will be provided with radiology test) For CT CHESTABD/PEL W IVCON Routine order Administer, As Directed One Time Only, via Oral, Rectal, both Oral and Rectal, Enteric Tube, Stoma or Indwelling Catheter, Enteric Contrast as designated per enteric contrast guidelines calcium-cholecalciferol, D3, (OSCAL+D 250) 250-125 mg-unit per tablet Take 2 tablets by mouth twice daily. iv contrast (will be provided with radiology test) CT Chest ABD/PEL-Inject, intravenously, once for 1 dose.No IV access, insert saline lock prior to the beginning of sedation, infusion, injection of imaging exam. Discontinue saline lock post exam. If Pt. has a central line or IVAD, may access for administration according to line specific nursing protocol. Once exam is complete flush line and de-access according to line specific nursing protocol in the CT contrast administration guidelines link. enteric contrast (will be provided with radiology test) For CT CHESTABD/PEL W IVCON Routine order Administer, As Directed One Time Only, via Oral, Rectal, both Oral and Rectal, Enteric Tube, Stoma or Indwelling Catheter, Enteric Contrast as designated per enteric contrast guidelines aspirin, enteric coated (ASPIRIN, ENTERIC COATED) 81 mg EC tablet Take 81 mg by mouth. glyBURIDE (DIABETA) 5 mg tablet Take 5 mg by mouth. metoprolol succinate ER (TOPROL XL) 50 mg 24 hr tablet Take 50 mg by mouth. iv contrast (will be provided with radiology test) CT Chest ABD/PEL-Inject, intravenously, once for 1 dose.No IV access, insert saline lock prior to the beginning of sedation, infusion, injection of imaging exam. Discontinue saline lock post exam. If Pt. has a central line or IVAD, may access for administration according to line specific nursing protocol. Once exam is comp (more content not included)...[facility] noteNo InformationNort [employer] Other Evaluation noteNo assessment information available [facility] Work Phone: Evaluation note* Diagnosis Malignant neoplasm of descending colon (HCC)- Primary Malignant neoplasm of descending colon documented [facility] Diagnosis Onset Date Resolution Status At high risk for skin breakdown acute COPD (chronic obstructive pulmonary disease) acute Diabetes acute Hyperlipemia acute Neuropathy acute PAD (peripheral artery disease) acute Ulcer of left heel acute Ulcer of right heel acute Weakness acute [facility] Work Phone: evaluation note* Diagnosis Onset Date Resolution Status At high risk for skin breakdown acute COPD (chronic obstructive pulmonary disease) acute Diabetes acute Hyperlipemia acute Neuropathy acute PAD (peripheral artery disease) acute Ulcer of left heel acute Ulcer of right heel acute Weakness acute Ulcer of right heel acute [facility] Work Phone: Evaluation note* Diagnosis Urinary retention- Primary Unspecified retention of urine [facility] Diagnosis Onset Date Resolution Status Ulcer of right heel acute At high risk for skin breakdown acute Atherosclerosis of [place] of both lower extremities acute COPD (chronic obstructive pulmonary disease) acute Diabetes acute Hyperlipemia acute Neuropathy acute PAD (peripheral artery disease) acute Pressure ulcer of right heel, stage 3 acute Ulcer of left heel acute Ulcer of right heel acute Weakness acute [facility] Work Phone: Evaluation note* Diagnosis Onset Date Resolution Status Ulcer of right heel acute At high risk for skin breakdown acute Atherosclerosis of [place] of both lower extremities acute COPD (chronic obstructive pulmonary disease) acute Diabetes acute Hyperlipemia acute Neuropathy acute PAD (peripheral artery disease) acute Pressure ulcer of right heel, stage 3 acute Ulcer of left heel acute Ulcer of right heel acute Weakness acute PAD (peripheral artery disease) [facility] Work Phone: History general Narrative - Reported* Type Description Date Medical History diabetes Type II Medical History hyperlipidemia Medical History hypertension Medical History COPD Medical History HX of Colon CA Medical History Insomnia Medical History Nightmares associate d with chronic post-traumatic stress disorder Medical History Anxiety Medical History Mood disorder Medical History Depression Medical History Depressive disorder Medical History Diabetic neuropathy Medical History Glaucoma Medical History Osteopenia Medical History Colon cancer Surgical History carpal tunnel release BILAT Surgical History EXPLORATORY ABDOMIN SX Surgical History colon resection Surgical History Lumbar surgery Surgical History Cataract Hospitalization History lumbar fx [place] [employer] Other InstructionsNot on filedocumented in this encounter [facility] MarketMakerInstructions* Attachments The following attachments cannot be sent through Care Everywhere. * Chronic obstructive pulmonary disease (COPD) ([place]) documented in [facility] CenterEveryRack [facility] SystemReason for visit Narrative Referral from Kota Funes, New patient Type 2 IDDM apt with [employer] ECG TECHNICIAN, CURB HOP-C, BC-ADMNort [employer] Other Summary Purpose Family History No Family History Records Found Relationship Condition Age at Onset Recorded Date/T ifeoma father Malignant neoplasm Unknown brother Parkinson's disease Unknown sister Malignant neoplasm of esophagus Unknown Relationship Condition Age at Onset Recorded Date/T ifeoma father Malignant neoplasm Unknown brother Parkinson's disease Unknown sister Malignant neoplasm of esophagus Unknown brother Diabetes mellitus Unknown father Heart disease Unknown History of stroke Unknown Unknown family member Unknown Not Specified History of stroke Unknown Diabetes mellitus Unknown sister Unknown Malignant neoplasm Unknown Advance Directives No Advanced Directives Records Found Advance Directive Response Recorded Date/ Time Advance Directives Yes February 18, 2017 7:22pm Advance Directive Response Recorded Date/ Time Advance Directives Yes February 18, 2017 6:22pm Latest Code Status on File Code Status Date Activated Date Inactivated Comments Full Code 06/26/2023 4:19 AM 06/30/2023 8:23 PM Code Status History Code Status Date Activated Date Inactivated Comments Full Code 05/15/2018 5:42 AM 05/18/2018 7:48 PM Chief Complaint and Reason for Visit Chief Complaint DM m85.852 Chief Complaint DM m85.852 Hx of Colon Polyps Chief Complaint DM m85.852 Hx of Colon Polyps Hx of Colon Polyps Chief Complaint Dm 3 Month F/U DM Chief Complaint e11.59 i70.245 i70.2 35 cath issues Open Wound Referred by wound care for abnormal pvr at [facility] Reason for Visit At high risk for ski n breakdown COPD (chronic obstructive pulmonary disease) Diabetes Hyperlipemia Neuropathy PAD (peripheral artery disease) Ulcer of left heel Ulcer of right heel Weakness Chief Complaint e11.59 i70.245 i70.2 35 cath issues Open Wound Referred by wound care for abnormal pvr at [facility] PAD w/ Right Heel Ulcer PAD w/ Right Heel Ulcer Reason for Visit At high risk for ski n breakdown COPD (chronic obstructive pulmonary disease) Diabetes Hyperlipemia Neuropathy PAD (peripheral artery disease) Ulcer of left heel Ulcer of right heel Weakness Ulcer of right heel Chief Complaint e11.59 i70.245 i70.2 35 cath issues Referred by wound care for abnormal pvr at [facility] PAD w/ Right Heel Ulcer PAD w/ Right Heel Ulcer Open Wound - [facility] [phone] I73.9 4 WK F/U ANGIOGRAM/ANGIOPLASTY; AZUL LEFT LEG Reason for Visit Ulcer of right heel At high risk for skin breakdown Atherosclerosis of [place] artery of both lower extremities COPD (chronic obstructive pulmonary disease) Diabetes Hyperlipemia Neuropathy PAD (peripheral artery disease) Pressure ulcer of right heel, stage 3 Ulcer of left heel Ulcer of right heel Weakness Chief Complaint e11.59 i70.245 i70.2 35 cath issues Referred by wound care for abnormal pvr at [facility] PAD w/ Right Heel Ulcer PAD w/ Right Heel Ulcer Open Wound - [facility] [phone] I73.9 4 WK F/U ANGIOGRAM/ANGIOPLASTY; AZUL LEFT LEG Reason for Visit Ulcer of right heel At high risk for skin breakdown Atherosclerosis of [place] artery of both lower extremities COPD (chronic obstructive pulmonary disease) Diabetes Hyperlipemia Neuropathy PAD (peripheral artery disease) Pressure ulcer of right heel, stage 3 Ulcer of left heel Ulcer of right heel Weakness PAD (peripheral artery disease) Reason for Referral Reason Right second toe ulc er Diagnosis 1 Type 2 diabetes philip itus with hyperglycemia (E11.65) Referral Organization [facility] Referring Provider First Name Delores Referring Provider Last Name Emiliano Referring Provider Specialty Nurse Pract itioner Referred Organization [facility] Referred Provider SUZE LEVIN Referred Address ,[place], [place],[address] Referred Provider Specialty Podiatry - S urgical Chiropody Referral Priority Routine Referral Appointment Date 2022-10-30 General Notes Sammie Price 09/27 02:29:42 PM >spoke to Sarah. Appt 10/30/22 at 10am in the [place] office. Will put patient on a cancellation for sooner appt. Additional Source Comments (unrecognized sect ion and content) No Status Records FoundNo Status Records FoundNo Status Records FoundNo Status Records FoundNo Status Records FoundNo Status Records Found INFORMATION SOURCE (unrecogn ized section and content) DATE CREATED AUTHOR 07/26/2021 [facility] DATE CREATED AUTHOR AUTHOR'S ORGANIZ ATION 05/29/2023 [facility] EPIC DATE CREATED AUTHOR AUTHOR'S ORGANIZ ATION 09/30/[address] [facility] DATE CREATED AUTHOR AUTHOR'S ORGANIZ ATION 11/02/2023 [facility] DATE CREATED AUTHOR AUTHOR'S ORGANIZ ATION 11/10/2023 [facility] DATE CREATED AUTHOR AUTHOR'S ORGANIZ ATION [facility] REASON FOR VISIT (unrecogniz ed section and content) Reason Comments Colon Cancer Follow up Reason Onset Date Comments referral 07/27/2023 Reason Comments Urinary Retention Care Teams (unrecognized sec tion and content) Team Status: Active Member Role Status Dates Kota Funes APRN GAMING CASHIER-C Primary Care Provider, Attend ing Provider Active Team Status: Inactive Member Role Status Dates Kota Funes APRN GAMING CASHIER-C Primary Care Provider, Attend ing Provider Active Team Status: Active Member Role Status Dates Kota Funes APRN GAMING CASHIER-C Primary Care Provider Active Team Status: Inactive Member Role Status Dates Kota Funes APRN GAMING CASHIER-C Primary Care Provider Active Brandy Banks MD Attending Provider Active Cork Insulator Relationship Specialty Start Date End Date Kota Funes CNP [address] [place] [address] PCP - General Internal Medicine 12/16/17 Cork Insulator Relationship Specialty Start Date End Date Kota Funes APRN-CORBIN [facility] [place] [address] PCP - General Family Medicine 05/04/23 Team Status: Inactive Member Role Status Dates Delores Cummings APRN Attending Provider Active Start: May 24, 2023 End: May 24, 2023 Team Status: Inactive Member Role Status Dates Kota Funes APRN GAMING CASHIER-C Primary Care Pr ovider, Attending Provider Active Start: May 24, 2023 End: May 24, 2023 Team Status: Inactive Member Role Status Dates Kota Funes APRN GAMING CASHIER-C Primary Care Provider Active Start: August 26, 2023 End: August 26, 2023 Martha Wilkes APRN Attending Provider Active St art: August 26, 2023 End: August 26, 2023 Team Status: Inactive Member Role Status Dates Kota Funes APRN GAMING CASHIER-C Primary Care Provider Active Start: August 28, 2023 End: August 28, 2023 Jose Enrique Almendarez DO Emergency Provider Active St art: August 28, 2023 End: August 28, 2023 Team Status: Active Member Role Status Dates Kota Funes APRN GAMING CASHIER-C Primary Care Provider Active Start: September 09, 2023 Martha Wilkes APRN Attending Provider Active St art: September 09, 2023 Team Status: Inactive Member Role Status Dates Kota Funes APRN GAMING CASHIER-C Primary Care Provider Active Start: September 09, 2023 End: September 09, 2023 Steven Horta MD Attending Provider Active Start: September 09, 2023 End: September 09, 2023 Martha Wilkes APRN Referring Provider Active St art: September 09, 2023 End: September 09, 2023 Team Status: Inactive Member Role Status Dates Kota Funes APRN GAMING CASHIER-C Primary Care Provider Active Start: September 13, 2023 End: September 13, 2023 Steven Horta MD Attending Provider Active Start: September 13, 2023 End: September 13, 2023 Team Status: Active Member Role Status Pierce Funes APRN GAMING CASHIER-C Primary Care Provider Active Start: September 13, 2023 Steven Horta MD Attending Prov ider, Other Provider Active Start: September 13, 2023 Cork Insulator Relationship Specialty Start Date End Date Kota Funes, ECG TECHNICIAN-[place]ING [place] [address] PCP - General Family Medicine 05/04/23 Team Status: Active Member Role Status Dates Kota Funes APRN GAMING CASHIER-C Primary Care Provider Active Start: September 30, 2023 Martha Wilkes APRN Active Start: A 2023 Beau Presley DPM (WND) Attending Provider Active Start: September 30, 2023 Team Status: Active Member Role Status Dates Kota Funes APRN GAMING CASHIER-C Primary Care Provider Active Start: October 07, 2023 Steven Horta MD Attending Provider Active Start: October 07, 2023 Team Status: Inactive Member Role Status Dates Kota Funes APRN GAMING CASHIER-C Primary Care Provider Active Start: October 07, 2023 End: October 07, 2023 Stveen Horta MD Attending Provider Active Start: October 07, 2023 End: October 07, 2023 Team Status: Inactive Member Role Status Dates Kota Funes APRN GAMING CASHIER-C Primary Care Provider Active Start: September 30, 2023 End: September 30, 2023 Martha Wilkes APRN Active Start: A 2023 End: September 30, 2023 Beau Presley DPM (WND) Attending Provider Active Start: September 30, 2023 End: September 30, 2023 Goals (unrecognized section and content) Goals may be documented in a n alternate section Source Comments (unrecognize d section and content) In the event this informatio n is protected by the Federal Confidentiality of Alcohol and Drug Abuse Patient Records regulations: The Federal rules restrict any use of the information to criminally investigate or prosecute any alcohol or drug abuse patient.[facility] [place] FOR RECORDS PERTAINING TO PATIENTS WHO ARE OR HAVE BEEN ENROLLED IN A CHEMICAL DEPENDENCY/SUBSTANCEABUSE PROGRAM, SOME INFORMATION MAY BE OMITTED. This clinical summary was aggregated from multiple sources. Caution should be exercised in using it in the provision of clinical care. This summary normalizes information from multiple sources, and as a consequence, information in this document may materially change the coding, format and clinical context of patient data. In addition, data may be omitted in some cases. CLINICAL DECISIONS SHOULD BE BASED ON THE PRIMARY CLINICAL RECORDS. [facility] provides no warranty or guarantee of the accuracy or completeness of information in this document.
[2023-11-11 13:59] LABS: Anion Gap 18.4; BUN Creatinine Ratio 18.8; Calcium 9.8 mg/dL (8.5-10.1); Carbon Dioxide 21.5 mmol/L (21.0-32.0); Chloride 104 mmol/L (98-107); Estimated GFR (African America >60 (>=60); Estimated GFR (Non-African Ame >60 (>=60); Glucose 100 mg/dL (74-106); Sodium 140 mmol/L (136-145)
[2023-11-11 14:01] LABS: Basophils Absolute Auto 0.1 10^3/uL (0.0-0.1); Basophils Percent Auto 0.7 % (0.2-2.0); Eosinophils Absolute Auto 0.4 10^3/uL (0.0-0.7); Eosinophils Percent Auto 4.3 % (0.9-7.0); Hematocrit 34.3 % (42.0-54.0); Immature Granulocytes Abs Auto 0.03 10^3/uL (0.00-0.03); Immature Granulocytes Pct Auto 0.4 % (0.0-0.5); Lymphocytes Absolute Auto 2.1 10^3/uL (1.2-3.8); Lymphocytes Percent Auto 26.5 % (20.5-60.0); Mean Corpuscular HGB Conc 32.1 g/dL (29.9-35.2); Mean Corpuscular Hemoglobin 26.8 pg (25.9-34.0); Mean Corpuscular Volume 83.5 fL (80.0-94.0); Mean Platelet Volume 10.1 fL (9.5-13.5); Monocytes Absolute Auto 0.6 10^3/uL (0.3-0.8); Monocytes Percent Auto 7.4 % (1.7-12.0); Neutrophils Absolute Auto 4.9 10^3/uL (1.4-6.5); Neutrophils Percent Auto 60.7 % (43.0-75.0); Platelet Count 243 10^3/uL (150-450); Red Blood Count 4.11 10^6/uL (4.70-6.10); Red Cell Distribution Width 16.1 % (11.0-15.0); White Blood Count 8.1 10^3/uL (4.0-11.0)
[2023-11-11 14:05] LABS: INR 1.09; Partial Thromboplastin Time 22.9 sec (22.3-36.2); Prothrombin Time 11.5 sec (9.0-11.6)
[2023-11-11 14:22] LABS: Potassium 3.9 mmol/L (3.5-5.1)
== END 2023-11-11 12:26 | disposition home or self-care (01) ==
PROVIDERS: Family Provider Family Medicine; PCP Nurse Practitioner Adult Health; Visit Provider Podiatrist Foot & Ankle Surgery
DX: Z01.810 Encounter for preprocedural cardiovascular examination (principal); Z01.812 Encounter for preprocedural laboratory examination; M86.471 Chronic osteomyelitis with draining sinus, right ankle and foot
CPT/HCPCS: 71046; 80048; 85025; 85610; 85730; 93005

== ENCOUNTER 2023-11-18 06:06 | Day surgery (SDC) | payer MEDICARE, MEDICAID, SELFPAY ==
[2023-11-11 12:55] VITALS: BP 124/68; PULSE 71; TEMP 36.5; O2SAT 99; BMI 24.1
[2023-11-18] VITALS (14 sets, daily range): BP systolic 131–173; BP diastolic 68–89; PULSE 62–74; TEMP 35.9–36.9; O2SAT 95–100; BMI 24.7
--- OUTSIDE RECORDS SUMMARY | 2023-11-18 06:10 | XMS_ITS | CCD ---
Author Organization [facility] Care Team Providers Care Binding Machine Operator Name Role Phone Delores Cummings Unavailable Gino Marcella Unavailable Janine Melvin Unavailable Valdemarlim, BRAND SALES MANAGER Kota Primary Care Provider Anglim, BRAND SALES MANAGER Kota Attending Provider Anglim, BRAND SALES MANAGER Kota Primary Care Provider Angreece, BRAND SALES MANAGER Kota Attending Provider MD Brandy Banks Attending Provider Angreece ALANIZ, Kota Primary Care Provider UNIQUE SWIFT Referring Unavailable BRANDY BAUTISTA Attending Unavailable UNIQUE SWIFT Referring Unavailable SUZE LEVIN Attending Unavailable Anglim BRAND SALES MANAGER-COACH TOUR DRIVER, Kota A Primary Care Provider Anglim, BRAND SALES MANAGER Kota Primary Care Provider Anglim, BRAND SALES MANAGER Kota Attending Provider Anglim, BRAND SALES MANAGER Kota Primary Care Provider IAIN Wilkes Attending Provider DO Jose Enrique Almendarez Emergency Provider MD Steven Horta Attending Provider JO VERONICA Referring Unavailable ANGLIM, KOTA A Primary Care Unavailable AMILCAR NORTON Referring Unavailable ANGLIM, KOTA A Primary Care Unavailable YING Presley (WND) Attending Provider [phone] ANGLIM, KOTA A Primary Care Unavailable ANGLIM, KOTA A Primary Care Unavailable KIRILL MADRID Attending Unavailable MAGALY PATEL Admitting Unavailable ANGLIM, KOTA A Primary Care Unavailable ELLIS MOELLER Attending Unavailab AMILCAR Colón Admitting Unavailable ANGLIM, KOTA A Primary Care Unavailable PADMA BLAIR Attending Unavailable PADMA BLAIR Attending Unavailable BLAIRPADMA Referring Unavailable ANGLIM, KOTA A Primary Care Unavailable BLAIRPADMA Attending Unavailable BLAIRPADMA T Referring Unavailable ANGLIM, KOTA A Primary Care Unavailable MERCYKIRILL SAUCEDA Attending Unavailable MERCYKIRILL SAUCEDA H Referring Unavailable ANGLIM, KOTA A Primary Care Unavailable ANGLIM, KOTA A Primary Care Unavailable RADHA DUARTE Attending Unavailable KARCHYUSRA CUENCA Attending Unavailable KARCHYUSRA CUENCA Referring Unavailable ANGLIM, KOTA A Primary Care [...] Unavailable ANGLIM, KOTA A Primary Care Unavailable Anglim, Kota Primary Care Unavailable Beau Presley (WND) Admitting Unavailable Beau Presley (WND) Attending Unavailable Anglim, Kota Primary Care Unavailable Martha Wilkes Admitting Unavailable CopMartha michael Attending Unavailable Anglim, Kota Primary Care Unavailable Anglim, Kota Attending Unavailable Anglim, Kota Admitting Unavailable Anglim, Kota Primary Care Unavailable Steven Horta Admitting Unavailabl e Steven Horta Attending Unavailabl e Anglim, Kota Primary Care Unavailable Steven Horta Admitting Unavailabl e Steven Horta Attending Unavailabl e Jose Enrique Almendarez Attending Unavailable Anglim, Kota Primary Care Unavailable Jose Enrique Almendarez Admitting Unavailable Medications Current Medications Medication Drug Class(es) Dates Sig (Normalized) Sig (Original) 3 ML semaglutide 1.34 MG/ML Pen Injector [Ozempic] (1 source) Start: 05-24-2023 inject 1 mg by subcutaneous injection every [...] 25, 2020 11:54am take 1 capsule by [facility] every twenty-four hours Doxycycline Hyclate [...] Subcutaneous Daily March 31, 2019 10:08am 03-31-2019 [facility] ([id number]) Insulin Detemir U-100 (Levemir Flexpen) 100 unit/mL [...] 2018 8:50am take 2 tablets by mo [facility] in the morning losartan (COZAAR) 50 mg [...] capsule (4 sources) Nitroimidazole Antimicrobial Start: 10-05-19 take 1 capsule by mouth twice daily Metronidazole (Flagyl) 375 mg capsule Active 375 MG PO Twice daily 16 04October 05, 2023 12:00am Start: 05-04-2016 metroNIDAZOLE (FLAGYL) 500 mg tablet Ozempic (0.25 or 0.5 MG/DOSE) 2 MG/1.5ML (1 source) Ozempic (0.25 or 0.5 MG/DOSE) 2 MG/1.5ML as directed Subcutaneous once weekly Active ozempic (1 mg/dose) 4 mg/3ml solution pen-injector (1 source) Start: 05-24-20 inject 1 mg by subcutaneous injection every [...] 2022 12:19pm take 2 tablets by mo [facility] every eight hours as needed for pain acetaminophen (TYLENOL ARTHRITIS) 650 mg 8 hr tablet Take 2 tablets (1,300 mg total) by mouth every 8 (eight) hours as needed for pain. 0 Active take 1 capsule by mo ut every six hours as needed Acetaminophen 325 [...] as needed Orally every 6 hrs Not-Taking [id number] 200 actuat albuterol 0.09 mg/actuat metered dose inhaler (20 sources) beta2-Adrenergic Agonist Start: 03-31-2019 albut bony HFA (PROVENTIL HFA, VENTOLIN HFA) 90 mcg/actuation inhaler Albuterol Albuterol Sulfate Active 2 PUFF Inhalation As Directed March 31, 2019 10:06am 03-31-2019 [facility] ([id number]) 0 03/31/2019 Active Start: 03-31-2019 End: 10-25-2020 [...] As Directed March 31, 2019 10:06am 03-31-2019 [facility] ([id number]) ARIPiprazole 5 mg oral tablet (20 sources) [...] (20 sources) HMG-CoA Reductase Inhibitor Start: 03-10-20 18 End: 08-19-19 take 40 mg by mouth [...] mg(1,250mg) -200 unit Tablet (9 sources) Start: 1 End: 2 take 1 tablet by mouth [...] 02/08/2017 Active take 1 capsule by mo [facility] three times daily gabapentin (NEURONTIN) 300 mg [...] above: Take 5 mg by mouth. Handicap placards as directe d (14 sources) Start: 08-05-2020 [...] 2018 12:00am take 1 tablet by roberto once daily hydroCHLOROthiazide (HYDRODIURIL) 25 mg tablet [...] 8 hours as needed. polyethylene glycol 3350 22985 mg powder for oral solution (10 sources) [...] (SPIRIVA) 18 mcg inhalation capsule tiotropium Tiotropium Sinclair Active 2 PUFF Inhalation Daily March 31, 2019 10:06am 03-31-2019 [facility] ([id number]) 0 03/31/2019 Active Start: 03-31-2019 End: 05-11-2022 take 1 puff(s) by inhalation once daily Tiotropium Sinclair (Spiriva With Handihaler) 18 mcg Capsule, W/Inhalation Device Discontinued 2 PUFF INHALATION Daily March 31, 2019 12:00am May 11, 2022 12:18pm take 1 capsule by in halation once daily Spiriva HandiHaler 18 MCG 1 capsule by inhaling the contents of the capsule using the HandiHaler device Inhalation Once a day Active Comment on above: tiotropium Tiotropiu m Sinclair Active 2 PUFF Inhalation Daily March 31, 2019 10:06am 03-31-2019 [facility] ([id number]) vitamin b12 0.1 mg oral tablet (7 [...] Coronary atherosclerosis; Translations: [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] Onset: 04-04-2018 06-26-2023 Chronic Coronary atherosclerosis and other heart disease (1 source) Coronary atherosclerosis and other heart disease; Translations: [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 of [...] sources) Long-term current use of insulin; Translations: [assisted (current) use of insulin] Episodic Other aftercare (7 sources) assisted (current) use of insulin Onset: 07-14-2021 Resolved: [...] 26.0-26.9, adult Episodic Peripheral and visceral atherosclerosis (19 sources) Peripheral vascular disease, unspecified; Translations: [Peripheral arterial disease] Onset: 09-13-2023 08-19-2023 Chronic Residual codes; unclassified (5 sources) At risk for impaired skin integrity ; Translations: [Other specified personal risk factors, not elsewhere classified] 08-19-2023 Episodic Residual codes; unclassified (5 sources) Other specified personal risk factors, not elsewhere classified; Translations: [Other specified conditions influencing health status] 09-09-2023 Episodic Unclassified (1 source) Difficulty Urinating Onset: 11-07-2023 Unclassified (1 source) Urinary Catheter Insertion or Check Onset: 09-13-2023 Unclassified (1 source) Catheter Inserition Problem Onset: 09-13-2023 Unclassified (1 source) Retention of urine, unspecified; Translations: [Retention of urine, unspecified] Onset: 08-28-2023 Urinary tract infections (6 sources) Urinary tract [...] RESISTANCE/MDRO MULTI DRUG RESISTANT ORGANISM F Normal [facility] Comment on above: Performed By: #### C BCA, PINR, 19150-3, BMP, 3040-3, 98208-9, 5643-2, LIVR, 29702-2, 73600-3, THYR, 43137-2, 37566-1 #### [facility] ([id number]) [address] [place] [address], [place] [address] URN MACROSCOPIC NURon 2023 BILIRUBIN TORRES Negative Normal NEG [facility] Comment on above: Performed By: #### C BCA, PINR, 88972-0, BMP, 3040-3, 71186-5, 5643-2, LIVR, 16867-7, 83410-8, THYR, 34150-8, 68989-8 #### [facility] ([id number]) [address] [place] [address] [place] [address] BLOOD/HGB TORRES Trace Abnormal NEG [facility] Comment on above: Performed By: #### C BCA, PINR, 63678-3, BMP, 3040-3, 09645-2, 5643-2, LIVR, 94701-8, 55194-9, THYR, 91375-1, 50685-1 #### [facility] ([id number]) [address] [place] [address] [place] [address] GLUCOSE TORRES Negative Normal NEG [facility] Comment on above: Performed By: #### C BCA, PINR, 75062-9, BMP, 3040-3, 92217-7, 5643-2, LIVR, 19328-7, 97980-6, THYR, 56153-1, 54565-1 #### [facility] ([id number]) [address] [place] [address] [place] [address] KETONES TORRES Negative Normal NEG [facility] Comment on above: Performed By: #### C BCA, PINR, 05678-2, BMP, 3040-3, 96026-2, 5643-2, LIVR, 46545-0, 54545-0, THYR, 55571-3, 74098-2 #### [facility] ([id number]) [address] [place] [address] [place] [address] LEUKOCYTE ESTERASE TORRES Small Abnormal NEG [facility] Comment on above: Performed By: #### C BCA, PINR, 79034-3, BMP, 3040-3, 62332-6, 5643-2, LIVR, 19998-7, 23200-9, THYR, 38780-6, 17509-0 #### [facility] ([id number]) [address] [place] [address] [place] [address] NITRITE TORRES Positive Abnormal NEG [facility] Comment on above: Performed By: #### C BCA, PINR, 23800-4, BMP, 3040-3, 28512-2, 5643-2, LIVR, 38502-9, 03700-1, THYR, 30906-8, 67648-6 #### [facility] ([id number]) [address] [place] [address] PH TORRES 5.5 Normal 5.0-8.5 [facility] Comment on above: Performed By: #### C BCA, PINR, 78245-9, BMP, 3040-3, 89190-5, 5643-2, LIVR, 19561-4, 66530-9, THYR, 53094-5, 02824-0 #### [facility] ([id number]) [address] [place] [address] [place] [address] PROTEIN TORRES Trace Abnormal NEG [facility] Comment on above: Performed By: #### C BCA, PINR, 90751-6, BMP, 3040-3, 18022-3, 5643-2, LIVR, 39640-2, 75605-1, THYR, 25421-8, 23282-4 #### [facility] ([id number]) [address] [place] [address] [place] [address] SPECIFIC GRAVITY TORRES 1.025 Normal 1.003-1.035 [facility] Comment on above: Performed By: #### C BCA, PINR, 18350-2, BMP, 3040-3, 74021-1, 5643-2, LIVR, 83730-8, 66259-5, THYR, 98773-9, 47753-6 #### [facility] ([id number]) [address] [place] [address] UROBILINOGEN TORRES 0.2 eu/dL Normal <1.1 [facility] Comment on above: Performed By: #### C BCA, PINR, 80681-2, BMP, 3040-3, 12973-8, 5643-2, LIVR, 77440-1, 76822-6, THYR, 08521-2, 56098-5 #### [facility] ([id number]) [address] [place] [address] BASIC METABOLIC PANLon 11-03 Anion gap [Moles/Vol] 14 mmol/L Normal 5-15 [facility] Comment on above: Performed By: #### C BCA, PINR, 82497-4, BMP, 3040-3, 06288-5, 5643-2, LIVR, 31909-7, 63319-9, THYR, 42010-0, 43102-8 #### [facility] ([id number]) [address] [place] [address] Calcium [Mass/Vol] 9.6 mg/dL Normal 8.5-10.5 [facility] Comment on above: Performed By: #### C BCA, PINR, 44709-8, BMP, 3040-3, 70127-6, 5643-2, LIVR, 14773-4, 63208-7, THYR, 36854-1, 24025-1 #### [facility] ([id number]) [address] [place] [address] Chloride [Moles/Vol] 102 mmol/L Normal 98-109 [facility] Comment on above: Performed By: #### C BCA, PINR, 11997-4, BMP, 3040-3, 95299-8, 5643-2, LIVR, 68708-5, 30432-5, THYR, 52244-9, 16781-9 #### [facility] ([id number]) [facility] [place] [address] CO2 [Moles/Vol] 21 mmol/L Low 22-32 [facility] Comment on above: Performed By: #### C BCA, PINR, 24919-3, BMP, 3040-3, 62745-9, 5643-2, LIVR, 97407-3, 30367-7, THYR, 61545-9, 40102-2 #### [facility] ([id number]) [address] [place] [address] Creatinine [Mass/Vol] 0.94 mg/dL Normal 0.70-1.20 [facility] Comment on above: Result Comment: METH OD TRACEABLE TO IDMS STANDARD Performed By: #### C BCA, PINR, 47381-9, BMP, 3040-3, 20676-4, 5643-2, LIVR, 85990-7, 22377-0, THYR, 00657-6, 59441-9 #### [facility] ([id number]) [address] [place] [address] GFR/1.73 sq M.predicted among non-blacks MDRD (S/P/Bld) [Vol rate/Area] 85 mL/min/{1.73_m2} Normal >59 [facility] Comment on above: Result Comment: Reported eGFR is based on the CKD-EPI 2020 equation that does not use a race coefficient. Performed By: #### C BCA, PINR, 08773-2, BMP, 3040-3, 87220-6, 5643-2, LIVR, 15984-3, 34803-5, THYR, 87771-7, 80397-7 #### [facility] ([id number]) [address] [place] [address] Glucose [Mass/Vol] 114 mg/dL High 65-99 [facility] Comment on above: Performed By: #### C BCA, PINR, 41412-1, BMP, 3040-3, 68635-9, 5643-2, LIVR, 53773-1, 31543-9, THYR, 82012-0, 21003-5 #### [facility] ([id number]) [address] [place] [address] Potassium [Moles/Vol] 3.5 mmol/L Normal 3.5-5.0 [facility] Comment on above: Performed By: #### C BCA, PINR, 49253-8, BMP, 3040-3, 81563-0, 5643-2, LIVR, 47563-3, 82126-0, THYR, 90640-4, 42906-0 #### [facility] ([id number]) [address] [place] [address] Sodium [Moles/Vol] 137 mmol/L Normal 134-146 [facility] Comment on above: Performed By: #### C BCA, PINR, 53370-0, BMP, 3040-3, 59555-8, 5643-2, LIVR, 48645-6, 94074-6, THYR, 62091-4, 57448-6 #### [facility] ([id number]) [address] [place] [address] [place] [address] Urea nitrogen [Mass/Vol] 17 mg/dL Normal 5-27 [facility] Comment on above: Performed By: #### C BCA, PINR, 23043-5, BMP, 3040-3, 53478-3, 5643-2, LIVR, 48580-4, 79034-8, THYR, 41784-7, 17987-6 #### [facility] ([id number]) [address] [place] [address] CBC AND AUTO DIFFon 11-04-19 24 ABSOLUTE BASOPHIL 0.1 X10E9/L Normal 0.0-0.2 [facility] Comment on above: Performed By: #### C BCA, PINR, 91693-8, BMP, 3040-3, 01364-3, 5643-2, LIVR, 17501-6, 44206-1, THYR, 85993-2, 38763-0 #### [facility] ([id number]) [address] [place] [address] [place] [address] ABSOLUTE NEUTROPHIL 5.5 X10E9/L Normal 1.5-6.6 [facility] Comment on above: Performed By: #### C BCA, PINR, 21519-7, BMP, 3040-3, 06158-3, 5643-2, LIVR, 74102-8, 21014-3, THYR, 17879-4, 30999-3 #### [facility] ([id number]) [address] [place] [address], [place] [address] Basophils/100 WBC (Bld) 1.0 % Normal [facility] Comment on above: Performed By: #### C BCA, PINR, 00264-4, BMP, 3040-3, 60751-6, 5643-2, LIVR, 39974-1, 87312-0, THYR, 69029-5, 40585-7 #### [facility] ([id number]) [address] [place] [address] [place] [address] Eosinophils (Bld) [#/Vol] 0.4 10*3/uL Normal 0.0-0.4 [facility] Comment on above: Performed By: #### C BCA, PINR, 47562-4, BMP, 3040-3, 73989-8, 5643-2, LIVR, 50478-2, 23488-6, THYR, 31824-7, 03725-1 #### [facility] ([id number]) [address] [place] [address], [place] [address] Eosinophils/100 WBC (Bld) 4.2 % Normal [facility] Comment on above: Performed By: #### C BCA, PINR, 04936-6, BMP, 3040-3, 17043-3, 5643-2, LIVR, 04291-8, 95881-1, THYR, 37812-9, 99326-0 #### [facility] ([id number]) [address] [place] [address] [place] [address] Erythrocyte distribution width (RBC) [Ratio] 17.9 % High 11.5-15.0 [facility] Comment on above: Performed By: #### C BCA, PINR, 34284-3, BMP, 3040-3, 52641-7, 5643-2, LIVR, 98448-4, 92234-9, THYR, 27268-3, 83823-5 #### [facility] ([id number]) [address] [place] [address] [place] [address] Hematocrit (Bld) [Volume fraction] 36.0 % Low 39-49 [facility] Comment on above: Performed By: #### C BCA, PINR, 45880-3, BMP, 3040-3, 89293-0, 5643-2, LIVR, 67532-9, 49881-8, THYR, 23821-8, 40683-3 #### [facility] ([id number]) [address] [place] [address] [place] [address] Hemoglobin (Bld) [Mass/Vol] 12.4 g/dL Low 13.0-17.0 [facility] Comment on above: Performed By: #### C BCA, PINR, 71706-4, BMP, 3040-3, 40336-7, 5643-2, LIVR, 74948-7, 38502-9, THYR, 59893-4, 31868-8 #### [facility] ([id number]) [address] [place] [address]31 Lymphocytes (Bld) [#/Vol] 1.9 10*3/uL Normal 1.0-3.5 [facility] Comment on above: Performed By: #### C BCA, PINR, 52838-1, BMP, 3040-3, 69208-9, 5643-2, LIVR, 00094-1, 03787-4, THYR, 58961-4, 03130-1 #### [facility] ([id number]) [address] [place] [address] Lymphocytes/100 WBC (Bld) 22.2 % Normal [facility] Comment on above: Performed By: #### C BCA, PINR, 66448-8, BMP, 3040-3, 38706-6, 5643-2, LIVR, 65373-2, 92317-8, THYR, 06472-4, 44602-4 #### [facility] ([id number]) [address] [place] [address] 18320 MCH (RBC) [Entitic mass] 27.5 pg Normal 27-34 [facility] Comment on above: Performed By: #### C BCA, PINR, 08057-5, BMP, 3040-3, 76210-9, 5643-2, LIVR, 61344-1, 54699-0, THYR, 14395-4, 26808-5 #### [facility] ([id number]) [address] [place] [address] [place] [address] MCHC (RBC) [Mass/Vol] 34.6 g/dL Normal 32-36 [facility] Comment on above: Performed By: #### C BCA, PINR, 94069-3, BMP, 3040-3, 34474-3, 5643-2, LIVR, 05512-2, 44916-4, THYR, 47344-5, 33013-4 #### [facility] ([id number]) [address] [place] [address] 97395 MCV (RBC) [Entitic vol] 80 fL Normal 80-100 [facility] Comment on above: Performed By: #### C BCA, PINR, 38698-6, BMP, 3040-3, 78188-5, 5643-2, LIVR, 91296-6, 86805-8, THYR, 57302-4, 64746-9 #### [facility] ([id number]) [address] [place] [address] Monocytes (Bld) [#/Vol] 0.6 10*3/uL Normal 0-0.9 [facility] Comment on above: Performed By: #### C BCA, PINR, 93854-1, BMP, 3040-3, 66871-8, 5643-2, LIVR, 05281-1, 49325-2, THYR, 95842-4, 89267-1 #### [facility] ([id number]) [address] [place] [address]2474 Monocytes/100 WBC (Bld) 7.7 % Normal [facility] Comment on above: Performed By: #### C BCA, PINR, 09171-3, BMP, 3040-3, 13219-4, 5643-2, LIVR, 73285-1, 25648-4, THYR, 51154-5, 35479-4 #### [facility] ([id number]) [address] [place] [address] 99021 Neutrophils/100 WBC (Bld) 64.9 % Normal [facility] Comment on above: Performed By: #### C BCA, PINR, 43221-5, BMP, 3040-3, 51964-1, 5643-2, LIVR, 84204-4, 69606-5, THYR, 09698-5, 82180-2 #### [facility] ([id number]) [address] [place] [address] Platelet mean volume (Bld) [Entitic vol] 7.6 fL Normal 7-12 [facility] Comment on above: Performed By: #### C BCA, PINR, 20835-1, BMP, 3040-3, 85925-4, 5643-2, LIVR, 76617-4, 22222-8, THYR, 73291-4, 44645-7 #### [facility] ([id number]) [address] [place] [address] 65047 Platelets (Bld) [#/Vol] 324 10*3/uL Normal 150-450 [facility] Comment on above: Performed By: #### C BCA, PINR, 05388-3, BMP, 3040-3, 21156-2, 5643-2, LIVR, 58496-6, 55312-1, THYR, 45542-4, 59944-7 #### [facility] ([id number]) [address] [place] [address] 81722 RBC COUNT 4.53 X10E12/L Normal 4.10-5.70 [facility] Comment on above: Performed By: #### C BCA, PINR, 72936-6, BMP, 3040-3, 06180-8, 5643-2, LIVR, 49786-9, 63182-1, THYR, 15896-1, 50877-2 #### [facility] ([id number]) [address] [place] [address] 48190 WBC (Bld) [#/Vol] 8.4 10*3/uL Normal 4.0-11.0 [facility] Comment on above: Performed By: #### C BCA, PINR, 59064-9, BMP, 3040-3, 00781-1, 5643-2, LIVR, 86850-9, 39553-4, THYR, 20676-3, 62774-9 #### [facility] ([id number]) [address] [place] [address] ABDOMEN AND PELVIS WO CON Ton [...] Chris MD on 11/04/2023 3:05 PM Normal [facility] URINE CULTUREon 11-04-2023 Bacteria identified Cx Nom (U) CULTURE RESULTS MULTIPLE SPECIES PRESENT. PROBABLE COLLECTION CONTAMINATION. SUGGEST REPEAT SPECIMEN. Normal [facility] Comment on above: Performed By: #### C BCA, PINR, 53299-4, BMP, 3040-3, 38269-1, 5643-2, LIVR, 06356-5, 09499-5, THYR, 99026-6, 06568-5 #### [facility] ([id number]) [address] [place] [address], [place] [address] URN MACROSCOPIC NURon 2023 BILIRUBIN TORRES Negative Normal NEG [facility] Comment on above: Performed By: #### C BCA, PINR, 62531-0, BMP, 3040-3, 21359-6, 5643-2, LIVR, 59726-4, 01060-6, THYR, 22900-9, 17318-3 #### [facility] ([id number]) [address] [place] [address], [place] [address] BLOOD/HGB TORRES Large Abnormal NEG [facility] Comment on above: Performed By: #### C BCA, PINR, 60861-2, BMP, 3040-3, 50451-4, 5643-2, LIVR, 05726-4, 06063-0, THYR, 90738-9, 23120-1 #### [facility] ([id number]) [address] [place] [address] [place] [address] GLUCOSE TORRES Negative Normal NEG [facility] Comment on above: Performed By: #### C BCA, PINR, 42642-5, BMP, 3040-3, 29428-7, 5643-2, LIVR, 33601-3, 52919-8, THYR, 07721-1, 11854-2 #### [facility] ([id number]) [address] [place] [address], [place] [address] KETONES TORRES Negative Normal NEG [facility] Comment on above: Performed By: #### C BCA, PINR, 95098-5, BMP, 3040-3, 47221-2, 5643-2, LIVR, 74771-7, 12351-8, THYR, 47866-3, 64622-6 #### [facility] ([id number]) [address] [place] [address], [place] [address] LEUKOCYTE ESTERASE TORRES Small Abnormal NEG [facility] Comment on above: Performed By: #### C BCA, PINR, 39965-0, BMP, 3040-3, 86270-6, 5643-2, LIVR, 12637-9, 91907-3, THYR, 62315-9, 82353-9 #### [facility] ([id number]) [address] [place] [address] NITRITE TORRES Negative Normal NEG [facility] Comment on above: Performed By: #### C BCA, PINR, 95080-8, BMP, 3040-3, 22401-0, 5643-2, LIVR, 79024-3, 17589-4, THYR, 06327-6, 49013-9 #### [facility] ([id number]) [address] [place] [address] PH TORRES 8.0 Normal 5.0-8.5 [facility] Comment on above: Performed By: #### C BCA, PINR, 14611-3, BMP, 3040-3, 50879-8, 5643-2, LIVR, 93696-4, 36382-8, THYR, 22427-1, 02275-4 #### [facility] ([id number]) [address] [place] [address] PROTEIN TORRES 100 mg/dL Abnormal NEG [facility] Comment on above: Performed By: #### C BCA, PINR, 57371-7, BMP, 3040-3, 33584-0, 5643-2, LIVR, 18162-9, 62691-2, THYR, 11945-8, 54999-6 #### [facility] ([id number]) [address] [place] [address] SPECIFIC GRAVITY TORRES 1.015 Normal 1.003-1.035 [facility] Comment on above: Performed By: #### C BCA, PINR, 02507-9, BMP, 3040-3, 58790-6, 5643-2, LIVR, 94779-9, 94209-8, THYR, 68026-2, 90539-0 #### [facility] ([id number]) [address] [place] [address] [place] [address] UROBILINOGEN TORRES 0.2 eu/dL Normal <1.1 [facility] Comment on above: Performed By: #### C BCA, PINR, 83373-5, BMP, 3040-3, 88323-7, 5643-2, LIVR, 62967-3, 21571-1, THYR, 53776-1, 98126-6 #### [facility] ([id number]) [address] [place] [address] CBC AND AUTO DIFFon 10-29-19 24 ABSOLUTE BASOPHIL 0.0 X10E9/L Normal 0.0-0.2 [facility] Comment on above: Performed By: #### C BCA, PINR, 12646-4, BMP, 3040-3, 88542-0, 5643-2, LIVR, 39547-9, 57431-5, THYR, 61461-7, 20218-3 #### [facility] ([id number]) [address] [place] [address] [place] [address] ABSOLUTE NEUTROPHIL 7.4 X10E9/L High 1.5-6.6 [facility] Comment on above: Performed By: #### C BCA, PINR, 05750-1, BMP, 3040-3, 49020-6, 5643-2, LIVR, 81826-3, 68792-1, THYR, 68142-8, 96372-2 #### [facility] ([id number]) [address] [place] [address] [place] [address] Basophils/100 WBC (Bld) 0.3 % Normal [facility] Comment on above: Performed By: #### C BCA, PINR, 76217-3, BMP, 3040-3, 05404-1, 5643-2, LIVR, 20588-2, 76663-9, THYR, 21722-9, 74476-0 #### [facility] ([id number]) [address] [place] [address] 18129 Eosinophils (Bld) [#/Vol] 0.3 10*3/uL Normal 0.0-0.4 [facility] Comment on above: Performed By: #### C BCA, PINR, 78152-7, BMP, 3040-3, 28174-4, 5643-2, LIVR, 90705-0, 78066-2, THYR, 36939-1, 09034-5 #### [facility] ([id number]) [address] [place] [address] 34412 Eosinophils/100 WBC (Bld) 3.1 % Normal [facility] Comment on above: Performed By: #### C BCA, PINR, 82218-0, BMP, 3040-3, 07488-0, 5643-2, LIVR, 37558-1, 69422-9, THYR, 20730-5, 01971-4 #### [facility] ([id number]) [address] [place] [address] 41885 Erythrocyte distribution width (RBC) [Ratio] 18.1 % High 11.5-15.0 [facility] Comment on above: Performed By: #### C BCA, PINR, 16479-7, BMP, 3040-3, 10451-8, 5643-2, LIVR, 46189-6, 25965-1, THYR, 48973-7, 42913-6 #### [facility] ([id number]) [address] [place] [address] 25348 Hematocrit (Bld) [Volume fraction] 35.0 % Low 39-49 [facility] Comment on above: Performed By: #### C BCA, PINR, 06975-3, BMP, 3040-3, 67336-4, 5643-2, LIVR, 35778-3, 77522-5, THYR, 22552-4, 87635-1 #### [facility] ([id number]) [address] [place] [address], [place] [address] Hemoglobin (Bld) [Mass/Vol] 11.9 g/dL Low 13.0-17.0 [facility] Comment on above: Performed By: #### C BCA, PINR, 19558-8, BMP, 3040-3, 95020-8, 5643-2, LIVR, 69784-9, 80491-8, THYR, 99144-4, 31927-8 #### [facility] ([id number]) [address] [place] [address]47[address] Lymphocytes (Bld) [#/Vol] 1.3 10*3/uL Normal 1.0-3.5 [facility] Comment on above: Performed By: #### C BCA, PINR, 40458-6, BMP, 3040-3, 90122-0, 5643-2, LIVR, 60857-5, 19956-5, THYR, 26307-1, 21560-3 #### [facility] ([id number]) [address] [place] [address] 78595 Lymphocytes/100 WBC (Bld) 13.1 % Normal [facility] Comment on above: Performed By: #### C BCA, PINR, 80475-6, BMP, 3040-3, 15798-1, 5643-2, LIVR, 26314-3, 56792-4, THYR, 18546-1, 37807-1 #### [facility] ([id number]) [address] [place] [address] 50418 MCH (RBC) [Entitic mass] 27.2 pg Normal 27-34 [facility] Comment on above: Performed By: #### C BCA, PINR, 49410-0, BMP, 3040-3, 39960-6, 5643-2, LIVR, 73591-1, 18532-0, THYR, 90196-2, 20367-5 #### [facility] ([id number]) [address] [place] [address], [place] [address] MCHC (RBC) [Mass/Vol] 34.0 g/dL Normal 32-36 [facility] Comment on above: Performed By: #### C BCA, PINR, 65543-9, BMP, 3040-3, 59193-3, 5643-2, LIVR, 19480-8, 89455-7, THYR, 87721-6, 38169-3 #### [facility] ([id number]) [address] [place] [address] 75867 MCV (RBC) [Entitic vol] 80 fL Normal 80-100 [facility] Comment on above: Performed By: #### C BCA, PINR, 44872-0, BMP, 3040-3, 34327-9, 5643-2, LIVR, 13697-3, 20050-9, THYR, 03258-9, 30848-9 #### [facility] ([id number]) [address] [place] [address] 58684 Monocytes (Bld) [#/Vol] 0.6 10*3/uL Normal 0-0.9 [facility] Comment on above: Performed By: #### C BCA, PINR, 64986-4, BMP, 3040-3, 97687-8, 5643-2, LIVR, 11878-8, 75823-9, THYR, 19764-5, 52258-7 #### [facility] ([id number]) [address] [place] [address] 94162 Monocytes/100 WBC (Bld) 6.3 % Normal [facility] Comment on above: Performed By: #### C BCA, PINR, 60917-9, BMP, 3040-3, 15967-0, 5643-2, LIVR, 26158-7, 46276-0, THYR, 73747-9, 13459-5 #### [facility] ([id number]) [address] [place] [address] 99134 Neutrophils/100 WBC (Bld) 77.2 % Normal [facility] Comment on above: Performed By: #### C BCA, PINR, 64099-7, BMP, 3040-3, 85322-1, 5643-2, LIVR, 05177-0, 69364-6, THYR, 65448-4, 65025-9 #### [facility] ([id number]) [address] [place] [address] 46007 Platelet mean volume (Bld) [Entitic vol] 7.4 fL Normal 7-12 [facility] Comment on above: Performed By: #### C BCA, PINR, 75249-1, BMP, 3040-3, 21135-6, 5643-2, LIVR, 42620-2, 04004-2, THYR, 11507-2, 06915-3 #### [facility] ([id number]) [address] [place] [address] 23379 Platelets (Bld) [#/Vol] 319 10*3/uL Normal 150-450 [facility] Comment on above: Performed By: #### C BCA, PINR, 98655-8, BMP, 3040-3, 97280-9, 5643-2, LIVR, 20789-7, 98846-1, THYR, 90503-6, 72052-4 #### [facility] ([id number]) [address] [place] [address] 17837 RBC COUNT 4.38 X10E12/L Normal 4.10-5.70 [facility] Comment on above: Performed By: #### C BCA, PINR, 98424-6, BMP, 3040-3, 84970-3, 5643-2, LIVR, 12592-3, 87771-7, THYR, 90201-5, 57802-6 #### [facility] ([id number]) [address] [place] [address] 11549 WBC (Bld) [#/Vol] 9.6 10*3/uL Normal 4.0-11.0 [facility] Comment on above: Performed By: #### C BCA, PINR, 95776-1, BMP, 3040-3, 30240-5, 5643-2, LIVR, 77269-6, 43801-0, THYR, 15243-4, 59871-3 #### [facility] ([id number]) [address] [place] [address] 52893 COMPREHENSIVE METABOLIC PANE [facility] 10-29-2023 Albumin [Mass/Vol] 3.8 g/dL Normal 3.2-5.3 [facility] Comment on above: Performed By: #### C BCA, PINR, 37549-4, BMP, 3040-3, 36209-4, 5643-2, LIVR, 89096-5, 58599-5, THYR, 86823-6, 54349-7 #### [facility] ([id number]) [address] [place] [address] 16124 ALP [Catalytic activity/Vol] 57 U/L Normal 39-130 [facility] Comment on above: Performed By: #### C BCA, PINR, 97948-2, BMP, 3040-3, 23780-7, 5643-2, LIVR, 99476-4, 89262-6, THYR, 47216-2, 43014-4 #### [facility] ([id number]) [address] [place] [address] [place] [address] ALT [Catalytic activity/Vol] 30 U/L Normal 0-40 [facility] Comment on above: Performed By: #### C BCA, PINR, 71729-7, BMP, 3040-3, 89518-7, 5643-2, LIVR, 07435-4, 33254-0, THYR, 45459-0, 30057-1 #### [facility] ([id number]) [address] [place] [address] Anion gap [Moles/Vol] 13 mmol/L Normal 5-15 [facility] Comment on above: Performed By: #### C BCA, PINR, 10229-0, BMP, 3040-3, 29206-2, 5643-2, LIVR, 23938-1, 45907-2, THYR, 66141-1, 88500-9 #### [facility] ([id number]) [address] [place] [address] [place] [address] AST [Catalytic activity/Vol] 22 U/L Normal 0-41 [facility] Comment on above: Performed By: #### C BCA, PINR, 77355-9, BMP, 3040-3, 46061-0, 5643-2, LIVR, 56059-0, 22364-4, THYR, 81035-2, 40023-3 #### [facility] ([id number]) [address] [place] [address] 50466 Bilirubin [Mass/Vol] 0.8 mg/dL Normal 0.3-1.2 [facility] Comment on above: Performed By: #### C BCA, PINR, 79719-9, BMP, 3040-3, 86042-5, 5643-2, LIVR, 08533-6, 33716-2, THYR, 92909-1, 82298-2 #### [facility] ([id number]) [address] [place] [address] [place] [address] Calcium [Mass/Vol] 9.5 mg/dL Normal 8.5-10.5 [facility] Comment on above: Performed By: #### C BCA, PINR, 17185-8, BMP, 3040-3, 21434-0, 5643-2, LIVR, 29569-1, 58995-0, THYR, 61771-7, 92173-5 #### [facility] ([id number]) [address] [place] [address] [place] [address] Chloride [Moles/Vol] 102 mmol/L Normal 98-109 [facility] Comment on above: Performed By: #### C BCA, PINR, 96938-6, BMP, 3040-3, 79853-8, 5643-2, LIVR, 05956-6, 32387-5, THYR, 70684-9, 83706-4 #### [facility] ([id number]) [address] [place] [address] 80242 CO2 [Moles/Vol] 21 mmol/L Low 22-32 [facility] Comment on above: Performed By: #### C BCA, PINR, 94773-5, BMP, 3040-3, 20775-3, 5643-2, LIVR, 28501-9, 75500-3, THYR, 64733-0, 55890-5 #### [facility] ([id number]) [address] [place] [address] 93006 Creatinine [Mass/Vol] 1.14 mg/dL Normal 0.70-1.20 [facility] Comment on above: Result Comment: METH OD TRACEABLE TO IDMS STANDARD Performed By: #### C BCA, PINR, 70607-1, BMP, 3040-3, 19003-3, 5643-2, LIVR, 51393-5, 03990-9, THYR, 33633-8, 58400-8 #### [facility] ([id number]) [address] [place] [address] 73763 GFR/1.73 sq M.predicted among non-blacks MDRD (S/P/Bld) [Vol rate/Area] 67 mL/min/{1.73_m2} Normal >59 [facility] Comment on above: Result Comment: Reported eGFR is based on the CKD-EPI 2020 equation that does not use a race coefficient. Performed By: #### C BCA, PINR, 40316-8, BMP, 3040-3, 57115-3, 5643-2, LIVR, 47036-5, 45977-9, THYR, 94309-2, 69059-4 #### [facility] ([id number]) [address] [place] [address] 82147 Glucose [Mass/Vol] 172 mg/dL High 65-99 [facility] Comment on above: Performed By: #### C BCA, PINR, 55187-4, BMP, 3040-3, 84553-6, 5643-2, LIVR, 32372-1, 39180-8, THYR, 37327-0, 23690-8 #### [facility] ([id number]) [address] [place] [address] 97348 Potassium [Moles/Vol] 3.7 mmol/L Normal 3.5-5.0 [facility] Comment on above: Performed By: #### C BCA, PINR, 38847-4, BMP, 3040-3, 57782-1, 5643-2, LIVR, 69646-7, 87418-1, THYR, 96986-6, 45094-4 #### [facility] ([id number]) [address] [place] [address] 16182 Protein [Mass/Vol] 7.9 g/dL Normal 6.0-8.0 [facility] Comment on above: Performed By: #### C BCA, PINR, 00341-9, BMP, 3040-3, 73397-2, 5643-2, LIVR, 93204-6, 31168-3, THYR, 31693-2, 97922-4 #### [facility] ([id number]) [address] [place] [address] [place] [address] Sodium [Moles/Vol] 136 mmol/L Normal 134-146 [facility] Comment on above: Performed By: #### C BCA, PINR, 08776-5, BMP, 3040-3, 81962-0, 5643-2, LIVR, 41122-8, 94398-0, THYR, 33137-1, 78102-2 #### [facility] ([id number]) [address] [facility], [place] [address] Urea nitrogen [Mass/Vol] 22 mg/dL Normal 5-27 [facility] Comment on above: Performed By: #### C BCA, PINR, 09244-0, BMP, 3040-3, 14670-2, 5643-2, LIVR, 88462-2, 28472-2, THYR, 25567-9, 95394-4 #### [facility] ([id number]) [address] [facility], [place] [address] CT ABDOMEN AND PELVIS W CONT on [...] Ochoa MD on 10/29/2023 1:22 AM Normal [facility] LIPASEon 10-29-2023 Lipase [Catalytic activity/Vol] 55 U/L High 17-40 [facility] Comment on above: Performed By: #### C BCA, PINR, 76217-4, BMP, 3040-3, 82830-6, 5643-2, LIVR, 23898-8, 12095-6, THYR, 47852-7, 32779-6 #### [facility] ([id number]) [address] [place] [address] 39227 Lactate (P zane) [Moles/Vol]o n 10-29-2023 Lactate [Moles/Vol] 3.1 mmol/L High 0.4-2.0 [facility] Comment on above: Performed By: #### C BCA, PINR, 37527-3, BMP, 3040-3, 94930-8, 5643-2, LIVR, 33694-0, 37493-3, THYR, 91434-1, 20138-8 #### [facility] ([id number]) [address] [place] [address] 54598 LACTATE W/REFLEX 3.5 mmol/L High 0.4-2.0 [facility] Comment on above: Performed By: #### C BCA, PINR, 53018-7, BMP, 3040-3, 64965-4, 5643-2, LIVR, 86464-7, 35587-9, THYR, 23297-0, 20851-7 #### [facility] ([id number]) [address] [place] [address] 37022 XR ABDOMEN AP 1 VWon 024 XR [...] Ochoa MD on 10/28/2023 11:53 PM Normal [facility] US ankle/arm indiceson 10-12 US ankle/arm indices [facility] [address] [place] [address] Ultrasound Report Signed Patient: Gagandeep Ahn MR#: [id number] 32 : 1950 Acct:[id number] Age/Sex: 72 / M ADM Date: 10/07/23 Loc: [facility] Room: Type: [facility] Attending Dr: Steven Horta MD Ordering Provider: [...] Steven Horta MD10/13/2023 8:55 AM Dictation Location: [facility] Tech: Maribel Ruano Transcribed By: MARTHA 10/13/23854 Dictated By: Steven Horta MD 10/13/2354 Signed By: 10/13/23854 Normal [facility] COMPREHENSIVE METABOLIC PANE Nilson 10-09-2023 Albumin [Mass/Vol] 3.2 g/dL Normal 3.2-5.3 [facility] Comment on above: Performed By: #### C BCA, PINR, 34432-2, BMP, 3040-3, 47635-7, 5643-2, LIVR, 65572-6, 86501-1, THYR, 73903-1, 42508-4 #### [facility] ([id number]) [address] [place] [address] 03956 ALP [Catalytic activity/Vol] 57 U/L Normal 39-130 [facility] Comment on above: Performed By: #### C BCA, PINR, 08053-1, BMP, 3040-3, 55862-7, 5643-2, LIVR, 26888-8, 70603-9, THYR, 41674-0, 74226-8 #### [facility] ([id number]) [address] [place] [address] [place] [address] ALT [Catalytic activity/Vol] 13 U/L Normal 0-40 [facility] Comment on above: Performed By: #### C BCA, PINR, 23983-0, BMP, 3040-3, 21726-5, 5643-2, LIVR, 04283-0, 27682-7, THYR, 52149-8, 93585-1 #### [facility] ([id number]) [address] [place] [address] [place] [address] Anion gap [Moles/Vol] 11 mmol/L Normal 5-15 [facility] Comment on above: Performed By: #### C BCA, PINR, 74574-5, BMP, 3040-3, 92942-9, 5643-2, LIVR, 81689-1, 48273-0, THYR, 43437-1, 74616-3 #### [facility] ([id number]) [address] [place] [address] 86669 AST [Catalytic activity/Vol] 16 U/L Normal 0-41 [facility] Comment on above: Performed By: #### C BCA, PINR, 28131-1, BMP, 3040-3, 00948-1, 5643-2, LIVR, 20745-1, 84982-8, THYR, 65590-0, 94566-1 #### [facility] ([id number]) [address] [place] [address], [place] [address] Bilirubin [Mass/Vol] 0.9 mg/dL Normal 0.3-1.2 [facility] Comment on above: Performed By: #### C BCA, PINR, 35874-5, BMP, 3040-3, 07024-1, 5643-2, LIVR, 47908-8, 18475-5, THYR, 23404-9, 91547-5 #### [facility] ([id number]) [address] [place] [address], [place] [address] Calcium [Mass/Vol] 8.3 mg/dL Low 8.5-10.5 [facility] Comment on above: Performed By: #### C BCA, PINR, 61825-3, BMP, 3040-3, 57446-7, 5643-2, LIVR, 64680-8, 65181-8, THYR, 44901-1, 20841-6 #### [facility] ([id number]) [address] [place] [address], [place] [address] Chloride [Moles/Vol] 103 mmol/L Normal 98-109 [facility] Comment on above: Performed By: #### C BCA, PINR, 31098-9, BMP, 3040-3, 38065-7, 5643-2, LIVR, 43436-0, 11172-3, THYR, 07524-1, 91309-7 #### [facility] ([id number]) [address] [place] [address], [place] [address] CO2 [Moles/Vol] 21 mmol/L Low 22-32 [facility] Comment on above: Performed By: #### C BCA, PINR, 66853-8, BMP, 3040-3, 94467-9, 5643-2, LIVR, 74850-4, 84975-0, THYR, 65963-4, 09585-2 #### [facility] ([id number]) [address] [place] [address] 03381 Creatinine [Mass/Vol] 0.92 mg/dL Normal 0.70-1.20 [facility] Comment on above: Result Comment: METH OD TRACEABLE TO IDMS STANDARD Performed By: #### C BCA, PINR, 91655-9, BMP, 3040-3, 19896-6, 5643-2, LIVR, 44400-5, 83577-1, THYR, 30087-2, 55931-0 #### [facility] ([id number]) [address] [place] [address] 34160 GFR/1.73 sq M.predicted among non-blacks MDRD (S/P/Bld) [Vol rate/Area] 87 mL/min/{1.73_m2} Normal >59 [facility] Comment on above: Result Comment: Reported eGFR is based on the CKD-EPI 2020 equation that does not use a race coefficient. Performed By: #### C BCA, PINR, 29162-3, BMP, 3040-3, 88834-4, 5643-2, LIVR, 93097-9, 67145-2, THYR, 35418-0, 45307-6 #### [facility] ([id number]) [address] [place] [address] 65664 Glucose [Mass/Vol] 138 mg/dL High 65-99 [facility] Comment on above: Performed By: #### C BCA, PINR, 12088-3, BMP, 3040-3, 71934-2, 5643-2, LIVR, 48362-3, 14979-3, THYR, 50621-9, 14432-3 #### [facility] ([id number]) [address] [place] [address] [place] [address] Potassium [Moles/Vol] 3.1 mmol/L Low 3.5-5.0 [facility] Comment on above: Performed By: #### C BCA, PINR, 00428-1, BMP, 3040-3, 13767-3, 5643-2, LIVR, 49370-0, 75874-3, THYR, 79756-7, 82275-6 #### [facility] ([id number]) [address] [place] [address] [place] [address] Protein [Mass/Vol] 6.7 g/dL Normal 6.0-8.0 [facility] Comment on above: Performed By: #### C BCA, PINR, 56863-3, BMP, 3040-3, 39100-2, 5643-2, LIVR, 05735-3, 23276-4, THYR, 26868-7, 52420-2 #### [facility] ([id number]) [address] [place] [address] [place] [address] Sodium [Moles/Vol] 135 mmol/L Normal 134-146 [facility] Comment on above: Performed By: #### C BCA, PINR, 07762-4, BMP, 3040-3, 81380-2, 5643-2, LIVR, 13595-1, 11073-2, THYR, 28700-0, 74300-1 #### [facility] ([id number]) [address] [place] [address] [place] [address] Urea nitrogen [Mass/Vol] 28 mg/dL High 5-27 [facility] Comment on above: Performed By: #### C BCA, PINR, 17780-7, BMP, 3040-3, 37693-4, 5643-2, LIVR, 39451-5, 81120-0, THYR, 56950-0, 28781-2 #### [facility] ([id number]) [address] [place] [address] [place] [address] MAGNESIUMon 10-09-2023 Magnesium [Mass/Vol] 1.3 mg/dL Low 1.8-2.6 [facility] Comment on above: Performed By: #### C BCA, PINR, 16727-2, BMP, 3040-3, 74974-2, 5643-2, LIVR, 47794-9, 54406-4, THYR, 95888-2, 85719-1 #### [facility] ([id number]) [address] [place] [address] C REACTIVE PROTEINon 024 CRP [Mass/Vol] mg/L Normal 0.000-0.744 [facility] Comment on above: Performed By: #### C BCA, PINR, 38180-0, BMP, 3040-3, 09657-2, 5643-2, LIVR, 14691-0, 62577-1, THYR, 25644-3, 63078-8 #### [facility] ([id number]) [address] [place] [address]22 CBC AND AUTO DIFFon 10-08-19 24 ABSOLUTE BASOPHIL 0.0 X10E9/L Normal 0.0-0.2 [facility] Comment on above: Performed By: #### C BCA, PINR, 57959-6, BMP, 3040-3, 84180-4, 5643-2, LIVR, 26073-9, 41465-6, THYR, 74479-3, 95251-6 #### [facility] ([id number]) [address] [place] [address] 03654 ABSOLUTE NEUTROPHIL 8.4 X10E9/L High 1.5-6.6 [facility] Comment on above: Performed By: #### C BCA, PINR, 72449-4, BMP, 3040-3, 00563-6, 5643-2, LIVR, 57140-9, 31310-6, THYR, 76725-4, 17468-1 #### [facility] ([id number]) [address] [place] [address] 52706 Basophils/100 WBC (Bld) 0.4 % Normal [facility] Comment on above: Performed By: #### C BCA, PINR, 88580-2, BMP, 3040-3, 67626-5, 5643-2, LIVR, 98630-6, 94918-5, THYR, 00662-4, 71854-3 #### [facility] ([id number]) [address] [place] [address] 55789 Eosinophils (Bld) [#/Vol] 0.2 10*3/uL Normal 0.0-0.4 [facility] Comment on above: Performed By: #### C BCA, PINR, 94885-5, BMP, 3040-3, 36871-1, 5643-2, LIVR, 22515-8, 08970-5, THYR, 09921-2, 24375-3 #### [facility] ([id number]) [address] [place] [address] 61172 Eosinophils/100 WBC (Bld) 2.3 % Normal [facility] Comment on above: Performed By: #### C BCA, PINR, 43551-1, BMP, 3040-3, 49492-2, 5643-2, LIVR, 97131-0, 21849-9, THYR, 49150-4, 28107-6 #### [facility] ([id number]) [address] [place] [address] [place] [address] Erythrocyte distribution width (RBC) [Ratio] 17.0 % High 11.5-15.0 [facility] Comment on above: Performed By: #### C BCA, PINR, 36013-0, BMP, 3040-3, 76987-6, 5643-2, LIVR, 08132-4, 66346-0, THYR, 38292-2, 56864-2 #### [facility] ([id number]) [address] [place] [address] 94819 Hematocrit (Bld) [Volume fraction] 36.6 % Low 39-49 [facility] Comment on above: Performed By: #### C BCA, PINR, 72746-5, BMP, 3040-3, 88917-2, 5643-2, LIVR, 35661-8, 63084-3, THYR, 39724-3, 24885-4 #### [facility] ([id number]) [address] [place] [address] 76668 Hemoglobin (Bld) [Mass/Vol] 12.3 g/dL Low 13.0-17.0 [facility] Comment on above: Performed By: #### C BCA, PINR, 53170-9, BMP, 3040-3, 11176-2, 5643-2, LIVR, 11971-3, 54455-9, THYR, 23509-0, 24275-2 #### [facility] ([id number]) [address] [place] [address] 99986 Lymphocytes (Bld) [#/Vol] 1.2 10*3/uL Normal 1.0-3.5 [facility] Comment on above: Performed By: #### C BCA, PINR, 43888-9, BMP, 3040-3, 69250-2, 5643-2, LIVR, 45646-8, 20774-9, THYR, 05301-1, 56383-2 #### [facility] ([id number]) [address] [place] [address] 61338 Lymphocytes/100 WBC (Bld) 11.6 % Normal [facility] Comment on above: Performed By: #### C BCA, PINR, 43556-8, BMP, 3040-3, 08024-1, 5643-2, LIVR, 12191-0, 54128-8, THYR, 58712-8, 19203-4 #### [facility] ([id number]) [address] [place] [address] 29260 MCH (RBC) [Entitic mass] 26.9 pg Low 27-34 [facility] Comment on above: Performed By: #### C BCA, PINR, 03264-1, BMP, 3040-3, 99207-3, 5643-2, LIVR, 80875-0, 99244-4, THYR, 37449-4, 91567-2 #### [facility] ([id number]) [address] [place] [address] 64231 MCHC (RBC) [Mass/Vol] 33.7 g/dL Normal 32-36 [facility] Comment on above: Performed By: #### C BCA, PINR, 75015-5, BMP, 3040-3, 44885-2, 5643-2, LIVR, 17523-4, 88136-3, THYR, 99883-7, 59782-2 #### [facility] ([id number]) [address] [place] [address] 00966 MCV (RBC) [Entitic vol] 80 fL Normal 80-100 [facility] Comment on above: Performed By: #### C BCA, PINR, 66199-4, BMP, 3040-3, 99131-6, 5643-2, LIVR, 00205-8, 85293-6, THYR, 44318-4, 94231-8 #### [facility] ([id number]) [address] [place] [address] 94444 Monocytes (Bld) [#/Vol] 0.7 10*3/uL Normal 0-0.9 [facility] Comment on above: Performed By: #### C BCA, PINR, 55409-3, BMP, 3040-3, 79035-3, 5643-2, LIVR, 11883-7, 12480-0, THYR, 37689-6, 30741-4 #### [facility] ([id number]) [address] [place] [address] [place] [address] Monocytes/100 WBC (Bld) 6.7 % Normal [facility] Comment on above: Performed By: #### C BCA, PINR, 00294-1, BMP, 3040-3, 41497-1, 5643-2, LIVR, 09481-1, 76312-4, THYR, 62316-5, 93489-4 #### [facility] ([id number]) [address] [place] [address] 67892 Neutrophils/100 WBC (Bld) 79.0 % Normal [facility] Comment on above: Performed By: #### C BCA, PINR, 62098-8, BMP, 3040-3, 12030-6, 5643-2, LIVR, 42714-4, 49903-9, THYR, 30675-3, 58785-0 #### [facility] ([id number]) [address] [place] [address] [place] [address] Platelet mean volume (Bld) [Entitic vol] 6.6 fL Low 7-12 [facility] Comment on above: Performed By: #### C BCA, PINR, 53091-9, BMP, 3040-3, 40914-5, 5643-2, LIVR, 91401-2, 40932-5, THYR, 93895-8, 99957-4 #### [facility] ([id number]) [address] [place] [address], [place] [address] Platelets (Bld) [#/Vol] 397 10*3/uL Normal 150-450 [facility] Comment on above: Performed By: #### C BCA, PINR, 18139-7, BMP, 3040-3, 07820-7, 5643-2, LIVR, 94846-0, 54384-0, THYR, 86880-9, 99176-8 #### [facility] ([id number]) [address] [place] [address] RBC COUNT 4.58 X10E12/L Normal 4.10-5.70 [facility] Comment on above: Performed By: #### C BCA, PINR, 55206-1, BMP, 3040-3, 63224-8, 5643-2, LIVR, 64858-7, 68501-8, THYR, 30847-6, 40407-2 #### [facility] ([id number]) [address] [place] [address]31 WBC (Bld) [#/Vol] 10.7 10*3/uL Normal 4.0-11.0 [facility] Comment on above: Performed By: #### C BCA, PINR, 71257-9, BMP, 3040-3, 28273-5, 5643-2, LIVR, 49111-0, 43450-5, THYR, 65985-4, 06019-4 #### [facility] ([id number]) [address] [place] [address] COMPREHENSIVE METABOLIC PANE Nilson 10-08-2023 Albumin [Mass/Vol] 3.7 g/dL Normal 3.2-5.3 [facility] Comment on above: Performed By: #### C BCA, PINR, 84727-7, BMP, 3040-3, 88238-4, 5643-2, LIVR, 18951-9, 25051-1, THYR, 23446-9, 78705-8 #### [facility] ([id number]) [address] [place] [address] 48004 ALP [Catalytic activity/Vol] 66 U/L Normal 39-130 [facility] Comment on above: Performed By: #### C BCA, PINR, 40913-1, BMP, 3040-3, 97817-1, 5643-2, LIVR, 29033-1, 69061-1, THYR, 03195-3, 92250-0 #### [facility] ([id number]) [address] [place] [address]3826 ALT [Catalytic activity/Vol] 14 U/L Normal 0-40 [facility] Comment on above: Performed By: #### C BCA, PINR, 67109-0, BMP, 3040-3, 56426-0, 5643-2, LIVR, 73046-9, 72613-1, THYR, 15048-9, 69013-1 #### [facility] ([id number]) [address] [place] [address]888 Anion gap [Moles/Vol] 12 mmol/L Normal 5-15 [facility] Comment on above: Performed By: #### C BCA, PINR, 19191-8, BMP, 3040-3, 28427-1, 5643-2, LIVR, 89659-5, 01820-5, THYR, 03195-5, 58900-3 #### [facility] ([id number]) [address] [place] [address] 58744 AST [Catalytic activity/Vol] 17 U/L Normal 0-41 [facility] Comment on above: Performed By: #### C BCA, PINR, 62198-3, BMP, 3040-3, 06310-1, 5643-2, LIVR, 60453-8, 92934-7, THYR, 67855-6, 63962-6 #### [facility] ([id number]) [address] [place] [address]74 Bilirubin [Mass/Vol] 1.0 mg/dL Normal 0.3-1.2 [facility] Comment on above: Performed By: #### C BCA, PINR, 30847-6, BMP, 3040-3, 76672-4, 5643-2, LIVR, 04424-8, 66106-7, THYR, 22814-1, 90550-2 #### [facility] ([id number]) [address] [place] [address] [place] [address] Calcium [Mass/Vol] 9.2 mg/dL Normal 8.5-10.5 [facility] Comment on above: Performed By: #### C BCA, PINR, 69145-5, BMP, 3040-3, 84788-4, 5643-2, LIVR, 32868-2, 57128-9, THYR, 49122-4, 60685-9 #### [facility] ([id number]) [address] [place] [address]33 Chloride [Moles/Vol] 104 mmol/L Normal 98-109 [facility] Comment on above: Performed By: #### C BCA, PINR, 95652-5, BMP, 3040-3, 00194-7, 5643-2, LIVR, 61713-1, 55797-9, THYR, 85220-3, 36932-7 #### [facility] ([id number]) [address] [place] [address] 56821 CO2 [Moles/Vol] 20 mmol/L Low 22-32 [facility] Comment on above: Performed By: #### C BCA, PINR, 99066-1, BMP, 3040-3, 52951-9, 5643-2, LIVR, 83425-5, 12251-1, THYR, 54949-0, 14484-8 #### [facility] ([id number]) [address] [place] [address] [place] [address] Creatinine [Mass/Vol] 1.02 mg/dL Normal 0.70-1.20 [facility] Comment on above: Result Comment: METH OD TRACEABLE TO IDMS STANDARD Performed By: #### C BCA, PINR, 67686-6, BMP, 3040-3, 82621-7, 5643-2, LIVR, 05992-0, 93628-0, THYR, 19770-9, 80478-9 #### [facility] ([id number]) [address] [place] [address] GFR/1.73 sq M.predicted among non-blacks MDRD (S/P/Bld) [Vol rate/Area] 77 mL/min/{1.73_m2} Normal >59 [facility] Comment on above: Result Comment: Reported eGFR is based on the CKD-EPI 2020 equation that does not use a race coefficient. Performed By: #### C BCA, PINR, 89677-5, BMP, 3040-3, 46486-3, 5643-2, LIVR, 70009-1, 79990-4, THYR, 58920-4, 60107-4 #### [facility] ([id number]) [address] [place] [address]24 Glucose [Mass/Vol] 121 mg/dL High 65-99 [facility] Comment on above: Performed By: #### C BCA, PINR, 93749-5, BMP, 3040-3, 48475-0, 5643-2, LIVR, 58398-2, 28456-6, THYR, 42187-6, 46249-5 #### [facility] ([id number]) [address] [place] [address] 34564 Potassium [Moles/Vol] 3.5 mmol/L Normal 3.5-5.0 [facility] Comment on above: Performed By: #### C BCA, PINR, 44094-0, BMP, 3040-3, 53268-2, 5643-2, LIVR, 32056-9, 52741-1, THYR, 02112-6, 50186-6 #### [facility] ([id number]) [address] [place] [address] 79191 Protein [Mass/Vol] 7.8 g/dL Normal 6.0-8.0 [facility] Comment on above: Performed By: #### C BCA, PINR, 06606-1, BMP, 3040-3, 53753-7, 5643-2, LIVR, 52056-8, 74428-7, THYR, 41107-4, 79516-9 #### [facility] ([id number]) [address] [place] [address] 36851 Sodium [Moles/Vol] 136 mmol/L Normal 134-146 [facility] Comment on above: Performed By: #### C BCA, PINR, 91446-9, BMP, 3040-3, 59276-5, 5643-2, LIVR, 67662-3, 21665-0, THYR, 85474-4, 57683-9 #### [facility] ([id number]) [address] [place] [address] 87306 Urea nitrogen [Mass/Vol] 36 mg/dL High 5-27 [facility] Comment on above: Performed By: #### C BCA, PINR, 06059-6, BMP, 3040-3, 03883-3, 5643-2, LIVR, 40973-6, 91253-8, THYR, 74491-8, 21648-7 #### [facility] ([id number]) [address] [place] [address] 97836 MAGNESIUMon 10-08-2023 Magnesium [Mass/Vol] 1.6 mg/dL Low 1.8-2.6 [facility] Comment on above: Performed By: #### C BCA, PINR, 61285-8, BMP, 3040-3, 09367-9, 5643-2, LIVR, 03500-3, 45496-1, THYR, 58445-4, 22378-0 #### [facility] ([id number]) [address] [place] [address] 18800 SARS/FLU A+B/RSV by NAAT/Mol ecularon 10-08-2023 SARS/FLU [...] operators who are performing tests using either [employer] or [employer] systems and is limited to laboratories that [...] repeat. Fact Sheet for Healthcare Providers: https://www.fda.gov/m edia/872505/download Fact Sheet for Patients: https://www.fda.gov/m edia/286385/download Normal [facility] Comment on above: Performed By: #### C BCA, PINR, 35148-3, BMP, 3040-3, 28471-3, 5643-2, LIVR, 71569-5, 21730-9, THYR, 37102-3, 58697-2 #### [facility] ([id number]) [address] [place] [address] URINE CULTUREon 10-08-2023 Bacteria identified Cx Nom [...] F TRIMETH/SULFAMETHOXAZ OLE S <=1/19 F Susceptible [facility] Comment on above: Performed By: #### C BCA, PINR, 72771-5, BMP, 3040-3, 15285-1, 5643-2, LIVR, 73747-8, 25661-7, THYR, 57861-9, 65100-7 #### [facility] ([id number]) [address] [place] [address] URN MACROSCOPIC NURon 2023 BILIRUBIN TORRES Negative Normal NEG [facility] Comment on above: Performed By: #### C BCA, PINR, 00653-1, BMP, 3040-3, 46735-5, 5643-2, LIVR, 47330-6, 80784-1, THYR, 40514-7, 77438-4 #### [facility] ([id number]) [address] [place] [address] [place] [address] BLOOD/HGB TORRES Large Abnormal NEG [facility] Comment on above: Performed By: #### C BCA, PINR, 84000-0, BMP, 3040-3, 61172-6, 5643-2, LIVR, 71236-5, 57105-0, THYR, 42259-9, 21556-5 #### [facility] ([id number]) [address] [place] [address] 59158 GLUCOSE TORRES Negative Normal NEG [facility] Comment on above: Performed By: #### C BCA, PINR, 43548-9, BMP, 3040-3, 27798-8, 5643-2, LIVR, 25219-5, 33509-6, THYR, 55946-7, 28367-9 #### [facility] ([id number]) [address] [place] [address] [place] [address] KETONES TORRES 15 mg/dL Abnormal NEG [facility] Comment on above: Performed By: #### C BCA, PINR, 22011-8, BMP, 3040-3, 19643-6, 5643-2, LIVR, 21589-7, 22302-4, THYR, 35339-4, 54726-8 #### [facility] ([id number]) [address] [place] [address] 28991 LEUKOCYTE ESTERASE TORRES Small Abnormal NEG [facility] Comment on above: Performed By: #### C BCA, PINR, 04825-7, BMP, 3040-3, 46669-7, 5643-2, LIVR, 72559-6, 14834-6, THYR, 00539-4, 94591-3 #### [facility] ([id number]) [address] [place] [address] [place] [address] NITRITE TORRES Positive Abnormal NEG [facility] Comment on above: Performed By: #### C BCA, PINR, 67453-3, BMP, 3040-3, 81334-0, 5643-2, LIVR, 02407-6, 06047-9, THYR, 16207-7, 52090-6 #### [facility] ([id number]) [address] [place] [address] 87858 PH TORRES 6.5 Normal 5.0-8.5 [facility] Comment on above: Performed By: #### C BCA, PINR, 17370-5, BMP, 3040-3, 42335-2, 5643-2, LIVR, 11339-7, 54388-9, THYR, 21889-2, 34578-8 #### [facility] ([id number]) [address] [place] [address] [place] [address] PROTEIN TORRES 100 mg/dL Abnormal NEG [facility] Comment on above: Performed By: #### C BCA, PINR, 57288-0, BMP, 3040-3, 59336-5, 5643-2, LIVR, 94680-9, 57890-0, THYR, 33701-7, 58802-6 #### [facility] ([id number]) [address] [place] [address] [place] [address] SPECIFIC GRAVITY TORRES >=1.030 Normal 1.003-1.035 [facility] Comment on above: Performed By: #### C BCA, PINR, 84140-3, BMP, 3040-3, 15288-0, 5643-2, LIVR, 97387-1, 56254-4, THYR, 00116-3, 63163-5 #### [facility] ([id number]) [address] [place] [address] [place] [address] UROBILINOGEN TORRES 1.0 eu/dL Normal <1.1 [facility] Comment on above: Performed By: #### C BCA, PINR, 90864-8, BMP, 3040-3, 43854-5, 5643-2, LIVR, 18694-6, 86356-5, THYR, 91898-9, 69672-0 #### [facility] ([id number]) [address] [facility] [place] [address] URINE CULTUREon 09-28-2023 Bacteria identified Cx Nom (U) CULTURE RESULTS >100,000 ORGANISMS/mL KLEBSIELLA PNEUMONIAE CULTURE IN PROGRESS Abnormal [facility] Comment on above: Performed By: #### 6 30-4 #### [facility] ([id number]) [address], [address] [place] [address] Aerobic Cultureon 09-22-2023 Aerobic Culture ORGANISM: Enterococcus faecalis (O:ENTFAC) Quantity of Growth Moderate Growth ORGANISM: Methicillin Resis Staph Aureus (O:MRSA) Quantity of Growth Moderate Growth ORGANISM: Bacteroides fragilis (O:BACFRA) Comments Sent to [facility] for Sensitivity Testing Quantity of Growth Light [...] RESISTANT TO ALL B-LACTAM DRUGS. PERFORMED BY: [place] [address] PATHOLOGIST SCHOOL SUPERVISOR LEANDRO DINERO M.D. Normal [facility] Comment on above: Performed By: #### A ERC #### [address] Gram stain for investigation of transfusion reactionOrdered By: Martha Wilkes on 09-22-2023 Microscopic observation Gram stain Nom (Unsp spec) Bacteroides fragilis [facility] Blood Urea Nitrogenon 2023 Urea nitrogen [Mass/Vol] 19 mg/dL Normal 7-25 [facility] Comment on above: Performed By: #### C REAT, BUN #### [address] Creatinineon 09-13-2023 Creatinine [Mass/Vol] 0.82 mg/dL Normal 0.70-1.30 [facility] Comment on above: Performed By: #### C REAT BUN #### [address] Creatinine Clr Calc Pharmacy 78.09 Normal [facility] Comment on above: Result Comment: PERF ORMED BY: [place] [address] PATHOLOGIST SCHOOL SUPERVISOR LEANDRO DINERO M.D. Performed By: #### C REAT, BUN #### [place] [address] [place] GFR/1.73 sq M.predicted MDRD (S/P/Bld) [Vol rate/Area] mL/min/{1.73_m2} Normal [facility] Comment on above: Performed By: #### C REAT, BUN #### [place] [address] [place] Creatinine [Mass/volume] in Serum or PlasmaOrdered By: Steven Horta on 09-13-2023 Creatinine [Mass/Vol] 0.82 mg/dL 0.70-1.30 [facility] [place] No Panel InformationOrdered By: Steven Horta on 09-13-2023 Estimated GFR (CKD-EPI) > 60.0 mL/Min [facility] Creatinine Clearance (Chem 78.09 [facility] Urea nitrogen [Mass/volume] in Serum or PlasmaOrdered By: Steven Horta on 09-13-2023 Urea nitrogen [Mass/Vol] 19 mg/dL 7-25 [facility] Automated erythrocytes count in urine sediment (number/area)Ordered By: Jose Enrique Almendarez on 08-28-2023 RBC Auto (Urine sed) [#/Area] 50-100 [HPF] 0-4 [facility] Automated leukocytes count i n urine sediment (number/area)Ordered By: Jose Enrique Almendarez on 08-28-2023 WBC Auto (Urine sed) [#/Area] Innumerable [HPF] 0-4 [facility] Automated urine color determ inationOrdered By: Jose Enrique Almendarez on 08-28-2023 Color (U) Dark yellow Critically abnormal Yellow [facility] Comment on above: Order Comment: Name Collection Type:: Ramos Catheter Performed By: #### A JARED LICEA #### [address] Automated urine hyaline cast s count (number/volume)Ordered By: Jose Enrique Almendarez on 08-28-2023 Hyaline casts Auto (U) [#/Vol] None seen [LPF] 0-1 [facility] Automated urine sediment sarah cium oxalate crystal count by microscopy (number/high powOrdered By: Jose Enrique Almendarez on 08-28-2023 Calcium oxalate crystals LM.HPF (Urine sed) [#/Area] 1+ [HPF] [facility] Bilirubin Test strip Ql (U)O rdered By: Jose Enrique Almendarez on 08-28-2023 Bilirubin Ql (U) Negative Negative [facility] Casts typing in urine sedime nt by light microscopyOrdered By: Jose Enrique Almendarez on 08-28-2023 Casts LM Nom (Urine sed) None seen [LPF] None Seen [facility] Dipstick and Microscopicon 0 08-28-2023 Appearance (U) Turbid Critically abnormal Clear [facility] Comment on above: Order Comment: Name Collection Type:: Ramos Catheter Performed By: #### A DDONUAPLUS, CUU #### [facility] [address] [place] [address] [place] Bacteria,Urine 4+ High None Seen [facility] Comment on above: Order Comment: Name Collection Type:: Ramos Catheter Performed By: #### A DDONUAPLUS, CUU #### [place] [address] [place] Bilirubin,Urine Negative Normal Negative [facility] Comment on above: Order Comment: Name Collection Type:: Ramos Catheter Performed By: #### A DDONUAPLUS, CUU #### [address] Calcium Oxalate Crystals,Urine 1+ Normal [facility] Comment on above: Order Comment: Name Collection Type:: Ramos Catheter Performed By: #### A DDONUAPLUS, CUU #### [address] Glucose Ql (U) Normal Normal Normal [facility] Comment on above: Order Comment: Name Collection Type:: Ramos Catheter Performed By: #### A DDONUAPLUS, CUU #### [place] [address] [place] Hyaline Casts,Urine None Seen Normal 0-1 [facility] Comment on above: Order Comment: Name Collection Type:: Ramos Catheter Performed By: #### A DDONUAPLUS, CUU #### [place] [address] [place] Ketones Ql (U) 1+ High Negative [facility] Comment on above: Order Comment: Name Collection Type:: Ramos Catheter Performed By: #### A DDONUAPLUS, CUU #### [place] [address] [place] Leukocyte esterase Test strip Ql (U) 4+ High Negative [facility] Comment on above: Order Comment: Name Collection Type:: Ramos Catheter Performed By: #### A DDONUAPLUS, CUU #### [facility] [address] [place] [address] [place] Nitrite,Urine Negative Normal Negative [facility] Comment on above: Order Comment: Name Collection Type:: Ramos Catheter Performed By: #### A DDONUAPLUS, CUU #### [facility] [address] [place] [address] [place] Occult Blood,Urine 3+ High Negative [facility] Comment on above: Order Comment: Name Collection Type:: Ramos Catheter Result Comment: PERF ORMED BY: [place] [address] PATHOLOGIST SCHOOL SUPERVISOR LEANDRO DINERO M.D. Performed By: #### A DDONUAPLUS, CUU #### [place] [address] [place] Othe Crystals,Urine None Seen Normal [facility] Comment on above: Order Comment: Name Collection Type:: Ramos Catheter Performed By: #### A DDONUAPLUS, CUU #### [address] Other Casts,Urine None Seen Normal None Seen [facility] Comment on above: Order Comment: Name Collection Type:: Ramos Catheter Performed By: #### A DDONUAPLUS, CUU #### [place] [address] [place] RBC,Urine 50-100 High 0-4 [facility] Comment on above: Order Comment: Name Collection Type:: Ramos Catheter Performed By: #### A DDONUAPLUS, CUU #### [facility] [address] [place] [address] [place] Specificy [place],Urine 1.029 Normal 1.001-1.030 [facility] Comment on above: Order Comment: Name Collection Type:: Ramos Catheter Performed By: #### A DDONUAPLUS, CUU #### [facility] [address] [place] [address] [place] Squamous Epithelial Cell,Urine 5-9 High 0-2 [facility] Comment on above: Order Comment: Name Collection Type:: Ramos Catheter Performed By: #### A DDONUAPLUS, CUU #### [address] Urobilinogen,Urine Normal Normal Normal [facility] Comment on above: Order Comment: Name Collection Type:: Ramos Catheter Performed By: #### A DDONUAPLUS, CUU #### [address] WBC,Urine Innumerable High 0-4 [facility] Comment on above: Order Comment: Name Collection Type:: Ramos Catheter Performed By: #### A DDONUAPLUS, CUU #### [address] Yeast,Urine None Seen Normal None Seen [facility] Comment on above: Order Comment: Name Collection Type:: Ramos Catheter Result Comment: PERF ORMED BY: [place] [address] PATHOLOGIST SCHOOL SUPERVISOR LEANDRO DINERO M.D. Performed By: #### A DDONUAPLUS, CUU #### [address] Ketones Auto test strip (U) [Mass/Vol]Ordered By: Jose Enrique Almendarez on 08-28-2023 Ketones (U) [Mass/Vol] 1+ Negative [facility] Nitrite Test strip Ql (U)Ord ered By: Jose Enrique Almendarez on 08-28-2023 Nitrite Ql (U) Negative Negative [facility] Specific gravity Auto test s trip (U) [Rel density]Ordered By: Jose Enrique Almendarez on 08-28-2023 Specific gravity (U) [Rel density] 1.029 1.001-1.030 [facility] Squamous epithelial cells de tection in urine sediment by light microscopyOrdered By: Jose Enrique Almendarez on 08-28-2023 Epithelial cells.squamous LM Ql (Urine sed) 5-9 [HPF] 0-2 [facility] Urine Cultureon 08-28-2023 Bacteria identified Cx Nom (U) ORGANISM: Klebsiella pneumoniae (O:KLEPNE) [place] Count >100,000 ORGANISM: Enterococcus faecalis (O:ENTFAC) [place] Count 75,000 Aerobic BEAU Charge (NMIC56) ---- [...] RESISTANT TO ALL B-LACTAM DRUGS. PERFORMED BY: [address] [address] PATHOLOGIST SCHOOL SUPERVISOR LEANDRO DINERO M.D. Normal [facility] Comment on above: Performed By: #### A JARED LICEA #### [address] Urine bacteria detection by automated methodOrdered By: Jose Enrique Almendarez on 08-28-2023 Bacteria Auto Ql (U) 4+ None Seen [facility] Urine clarity by refractomet ry automatedOrdered By: Jose Enrique Almendarez on 08-28-2023 Clarity Refractometry automated (U) Turbid Clear [facility] Urine culture routineOrdered By: Jose Enrique Almendarez on 08-28-2023 Bacteria identified Cx Nom (U) Enterococcus faecalis [facility] Urine glucose measurement by automated test strip (mass/volume)Ordered By: Jose Enrique Almendarez on 08-28-2023 Glucose Auto test strip (U) [Mass/Vol] Normal mg/dL Normal [facility] Urine hemoglobin detection b y automated test stripOrdered By: Jose Enrique Almendarez on 08-28-2023 Hemoglobin Auto test strip Ql (U) 3+ Negative [facility] Urine leukocyte esterase det ection by automated test stripOrdered By: Jose Enrique Almendarez on 08-28-2023 Leukocyte esterase Auto test strip Ql (U) 4+ Negative [facility] Urine pH measurement by auto mated test stripOrdered By: Jose Enrique Almendarez on 08-28-2023 pH (U) 5.5 [pH] Normal 5.0-9.0 [facility] Comment on above: Order Comment: Name Collection Type:: Ramos Catheter Performed By: #### A JARED LICEA #### [place] [address] [place] Urine protein measurement by automated test strip (mass/volume)Ordered By: Jose Enrique Almendarez on 08-28-2023 Protein (U) [Mass/Vol] 300 mg/dL High Negative [facility] Comment on above: Order Comment: Name Collection Type:: Ramos Catheter Performed By: #### A ANUJA CUU #### [address] Urine sediment crystal ident ification by light microscopyOrdered By: Jose Enrique Almendarez on 08-28-2023 Crystals LM Nom (Urine sed) None seen [HPF] [facility] Urobilinogen Auto test strip (U) [Mass/Vol]Ordered By: Jose Enrique Almendarez on 08-28-2023 Urobilinogen (U) [Mass/Vol] Normal mg/dL Normal [facility] Yeast detection in urine sed iment by light microscopyOrdered By: Jose Enrique Almendarez on 08-28-2023 Yeast LM Ql (Urine sed) None seen [HPF] None Se en [facility] US arterial pvr rest Ally US arterial pvr rest LE [facility] [place] [address] Ultrasound Report Signed Patient: Gagandeep Ahn MR#: [id number] 34 : 1950 Acct:[id number] Age/Sex: 72 / M ADM Date: 08/26/23 Loc: Room: Type: [facility] Attending Dr: Martha Wilkes APRN Ordering Provider: Martha Wileks APRN Date of Service: 08/26/23 US/US arterial [...] Austyn Martinez M.D.08/27/2023 10:50 AM Dictation Location: [place] [address] Tech: Stephani Lo Transcribed By: MARTHA 08/27/23 1050 Dictated By: Austyn Martinez MD 08/27/23 1049 Signed By: 08/27/23 1050 Normal [facility] XR calcaneus BIon 08-19-2023 XR calcaneus BI [facility] [place] [address] [place] [address] XRay Report Signed Patient: Gagandeep Ahn MR#: [id number] 34 : 1950 Acct:[id number] Age/Sex: 72 / M ADM Date: 08/19/23 Loc: Room: Type: [facility] Attending Dr: Martha Wilkes APRN Copies to: [...] Austyn Day M.D.08/19/2023 10:46 AM Dictation Location: [place] [address] Transcribed By: [facility] 08/19/23 1046 Dictated By: Austyn Day DO 08/19/23 1041 Signed By: 08/19/23 1046 Normal [facility] CBC AND AUTO DIFFon 06-30-19 ABSOLUTE BASOPHIL 0.0 X10E9/L Normal 0.0-0.2 [facility] Comment on above: Performed By: #### C BCA, PINR, 73500-0, BMP, 3040-3, 41834-1, 5643-2, LIVR, 57818-1, 07667-9, THYR, 67675-1, 94107-7 #### [facility] ([id number]) [address] [place] [address], [place] [address] ABSOLUTE NEUTROPHIL 12.7 X10E9/L High 1.5-6.6 [facility] Comment on above: Performed By: #### C BCA, PINR, 13216-8, BMP, 3040-3, 71081-9, 5643-2, LIVR, 71183-8, 10620-3, THYR, 53007-1, 51063-9 #### [facility] ([id number]) [address] [place] [address], [place] [address] Basophils/100 WBC (Bld) 0.1 % Normal [facility] Comment on above: Performed By: #### C BCA, PINR, 66028-8, BMP, 3040-3, 88132-3, 5643-2, LIVR, 55189-7, 12941-2, THYR, 56459-9, 80649-1 #### [facility] ([id number]) [address] [place] [address], [place] [address] Eosinophils (Bld) [#/Vol] 0.0 10*3/uL Normal 0.0-0.4 [facility] Comment on above: Performed By: #### C BCA, PINR, 68647-0, BMP, 3040-3, 35291-8, 5643-2, LIVR, 62533-7, 61210-1, THYR, 17584-3, 97747-4 #### [facility] ([id number]) [address] [place] [address], [place] [address] Eosinophils/100 WBC (Bld) 0.1 % Normal [facility] Comment on above: Performed By: #### C BCA, PINR, 52654-2, BMP, 3040-3, 72056-1, 5643-2, LIVR, 75700-0, 23148-9, THYR, 94016-0, 77731-9 #### [facility] ([id number]) [address] [place] [address] [place] [address] Erythrocyte distribution width (RBC) [Ratio] 15.1 % High 11.5-15.0 [facility] Comment on above: Performed By: #### C BCA, PINR, 84275-3, BMP, 3040-3, 34300-4, 5643-2, LIVR, 32877-5, 54431-6, THYR, 19922-8, 84285-3 #### [facility] ([id number]) [address] [place] [address] [place] [address] Hematocrit (Bld) [Volume fraction] 35.4 % Low 39-49 [facility] Comment on above: Performed By: #### C BCA, PINR, 85253-6, BMP, 3040-3, 96236-1, 5643-2, LIVR, 06407-0, 35642-2, THYR, 42871-7, 31137-2 #### [facility] ([id number]) [address] [place] [address] [place] [address] Hemoglobin (Bld) [Mass/Vol] 12.2 g/dL Low 13.0-17.0 [facility] Comment on above: Performed By: #### C BCA, PINR, 11622-5, BMP, 3040-3, 11857-4, 5643-2, LIVR, 14055-7, 76176-9, THYR, 33192-6, 88547-5 #### [facility] ([id number]) [address] [place] [address] [place] [address] Lymphocytes (Bld) [#/Vol] 0.5 10*3/uL Low 1.0-3.5 [facility] Comment on above: Performed By: #### C BCA, PINR, 12912-5, BMP, 3040-3, 52448-7, 5643-2, LIVR, 17677-5, 46225-5, THYR, 72763-3, 25781-7 #### [facility] ([id number]) [address] [place] [address] Lymphocytes/100 WBC (Bld) 3.9 % Normal [facility] Comment on above: Performed By: #### C BCA, PINR, 21089-5, BMP, 3040-3, 67072-9, 5643-2, LIVR, 35662-4, 55886-4, THYR, 17505-0, 30835-2 #### [facility] ([id number]) [address] [place] [address] MCH (RBC) [Entitic mass] 28.7 pg Normal 27-34 [facility] Comment on above: Performed By: #### C BCA, PINR, 59551-5, BMP, 3040-3, 68565-3, 5643-2, LIVR, 91239-5, 88076-0, THYR, 02516-6, 92047-9 #### [facility] ([id number]) [address] [place] [address], [place] [address] MCHC (RBC) [Mass/Vol] 34.4 g/dL Normal 32-36 [facility] Comment on above: Performed By: #### C BCA, PINR, 37593-7, BMP, 3040-3, 38824-2, 5643-2, LIVR, 46317-8, 79113-4, THYR, 61576-7, 03668-1 #### [facility] ([id number]) [address] [place] [address] [place] [address] MCV (RBC) [Entitic vol] 84 fL Normal 80-100 [facility] Comment on above: Performed By: #### C BCA, PINR, 14797-9, BMP, 3040-3, 50099-7, 5643-2, LIVR, 02930-8, 62480-7, THYR, 22215-6, 07098-2 #### [facility] ([id number]) [address] [place] [address] Monocytes (Bld) [#/Vol] 0.6 10*3/uL Normal 0-0.9 [facility] Comment on above: Performed By: #### C BCA, PINR, 45873-9, BMP, 3040-3, 96404-0, 5643-2, LIVR, 98839-1, 60497-1, THYR, 11072-2, 11013-5 #### [facility] ([id number]) [address] [place] [address] [place] [address] Monocytes/100 WBC (Bld) 4.4 % Normal [facility] Comment on above: Performed By: #### C BCA, PINR, 21903-1, BMP, 3040-3, 66235-1, 5643-2, LIVR, 71138-2, 42845-0, THYR, 17913-1, 68522-9 #### [facility] ([id number]) [address] [place] [address] [place] [address] Neutrophils/100 WBC (Bld) 91.5 % Normal [facility] Comment on above: Performed By: #### C BCA, PINR, 24423-1, BMP, 3040-3, 51375-6, 5643-2, LIVR, 43757-8, 18335-6, THYR, 72304-0, 83756-0 #### [facility] ([id number]) [address] [place] [address], [place] [address] Platelet mean volume (Bld) [Entitic vol] 8.6 fL Normal 7-12 [facility] Comment on above: Performed By: #### C BCA, PINR, 57012-6, BMP, 3040-3, 13433-6, 5643-2, LIVR, 32945-4, 48686-5, THYR, 63290-5, 32807-6 #### [facility] ([id number]) [address] [place] [address] Platelets (Bld) [#/Vol] 177 10*3/uL Normal 150-450 [facility] Comment on above: Performed By: #### C BCA, PINR, 78231-3, BMP, 3040-3, 54224-8, 5643-2, LIVR, 14926-2, 57892-1, THYR, 72235-6, 09644-5 #### [facility] ([id number]) [address] [place] [address] RBC COUNT 4.23 X10E12/L Normal 4.10-5.70 [facility] Comment on above: Performed By: #### C BCA, PINR, 19894-6, BMP, 3040-3, 06227-9, 5643-2, LIVR, 40706-1, 48519-6, THYR, 43449-6, 31507-3 #### [facility] ([id number]) [address] [place] [address] WBC (Bld) [#/Vol] 13.9 10*3/uL High 4.0-11.0 [facility] Comment on above: Performed By: #### C BCA, PINR, 61510-0, BMP, 3040-3, 86920-0, 5643-2, LIVR, 17941-5, 31238-3, THYR, 46886-3, 98083-8 #### [facility] ([id number]) [address] [place] [address] COMPREHENSIVE METABOLIC PANE Nilson 06-30-2023 Albumin [Mass/Vol] 3.1 g/dL Low 3.2-5.3 [facility] Comment on above: Performed By: #### C BCA, PINR, 38906-9, BMP, 3040-3, 98960-7, 5643-2, LIVR, 87445-8, 12141-1, THYR, 27906-5, 92402-3 #### [facility] ([id number]) [address] [place] [address], [place] [address] ALP [Catalytic activity/Vol] 42 U/L Normal 39-130 [facility] Comment on above: Performed By: #### C BCA, PINR, 16800-2, BMP, 3040-3, 09673-3, 5643-2, LIVR, 00475-6, 83473-8, THYR, 05409-3, 38626-3 #### [facility] ([id number]) [address] [place] [address], [place] [address] ALT [Catalytic activity/Vol] 46 U/L High 0-40 [facility] Comment on above: Performed By: #### C BCA, PINR, 38447-1, BMP, 3040-3, 59321-3, 5643-2, LIVR, 64057-5, 74222-0, THYR, 07580-7, 07974-3 #### [facility] ([id number]) [address] [place] [address], [place] [address] Anion gap [Moles/Vol] 10 mmol/L Normal 5-15 [facility] Comment on above: Performed By: #### C BCA, PINR, 05771-2, BMP, 3040-3, 50528-1, 5643-2, LIVR, 46900-9, 67668-3, THYR, 70226-5, 02417-4 #### [facility] ([id number]) [address] [place] [address], [place] [address] AST [Catalytic activity/Vol] 35 U/L Normal 0-41 [facility] Comment on above: Performed By: #### C BCA, PINR, 46684-9, BMP, 3040-3, 34880-4, 5643-2, LIVR, 21745-6, 21113-5, THYR, 46155-7, 00589-4 #### [facility] ([id number]) [address] [place] [address] [place] [address] Bilirubin [Mass/Vol] 1.2 mg/dL Normal 0.3-1.2 [facility] Comment on above: Performed By: #### C BCA, PINR, 07408-0, BMP, 3040-3, 23203-5, 5643-2, LIVR, 49519-3, 26030-1, THYR, 33290-9, 31499-4 #### [facility] ([id number]) [address] [place] [address] [place] [address] Calcium [Mass/Vol] 8.2 mg/dL Low 8.5-10.5 [facility] Comment on above: Performed By: #### C BCA, PINR, 88889-8, BMP, 3040-3, 47262-3, 5643-2, LIVR, 52947-8, 92473-7, THYR, 12498-5, 43702-3 #### [facility] ([id number]) [address] [place] [address] [place] [address] Chloride [Moles/Vol] 100 mmol/L Normal 98-109 [facility] Comment on above: Performed By: #### C BCA, PINR, 28215-8, BMP, 3040-3, 03258-5, 5643-2, LIVR, 65294-9, 92754-0, THYR, 53393-1, 82981-8 #### [facility] ([id number]) [address] [place] [address] [place] [address] CO2 [Moles/Vol] 23 mmol/L Normal 22-32 [facility] Comment on above: Performed By: #### C BCA, PINR, 19070-5, BMP, 3040-3, 49820-4, 5643-2, LIVR, 43888-2, 46267-6, THYR, 35970-3, 21476-6 #### [facility] ([id number]) [address] [place] [address] Creatinine [Mass/Vol] 1.02 mg/dL Normal 0.70-1.20 [facility] Comment on above: Result Comment: METH OD TRACEABLE TO IDMS STANDARD Performed By: #### C BCA, PINR, 29800-3, BMP, 3040-3, 12417-0, 5643-2, LIVR, 49187-6, 40722-5, THYR, 57298-3, 17830-3 #### [facility] ([id number]) [address] [place] [address] GFR/1.73 sq M.predicted among non-blacks MDRD (S/P/Bld) [Vol rate/Area] 77 mL/min/{1.73_m2} Normal >59 [facility] Comment on above: Result Comment: Reported eGFR is based on the CKD-EPI 2020 equation that does not use a race coefficient. Performed By: #### C BCA, PINR, 39365-2, BMP, 3040-3, 33633-2, 5643-2, LIVR, 47107-7, 37729-8, THYR, 15305-2, 34144-0 #### [facility] ([id number]) [address] [place] [address] Glucose [Mass/Vol] 168 mg/dL High 65-99 [facility] Comment on above: Performed By: #### C BCA, PINR, 84092-7, BMP, 3040-3, 39751-8, 5643-2, LIVR, 38634-3, 76695-4, THYR, 80269-0, 42807-7 #### [facility] ([id number]) [address] [place] [address] Potassium [Moles/Vol] 3.3 mmol/L Low 3.5-5.0 [facility] Comment on above: Performed By: #### C BCA, PINR, 29879-2, BMP, 3040-3, 01156-7, 5643-2, LIVR, 94926-6, 55628-4, THYR, 60807-2, 63310-2 #### [facility] ([id number]) [address] [place] [address] Protein [Mass/Vol] 6.7 g/dL Normal 6.0-8.0 [facility] Comment on above: Performed By: #### C BCA, PINR, 59785-4, BMP, 3040-3, 80650-1, 5643-2, LIVR, 17674-8, 86666-1, THYR, 79725-2, 46364-8 #### [facility] ([id number]) [address] [place] [address] Sodium [Moles/Vol] 133 mmol/L Low 134-146 [facility] Comment on above: Performed By: #### C BCA, PINR, 69368-0, BMP, 3040-3, 88125-6, 5643-2, LIVR, 74329-8, 12361-5, THYR, 76838-0, 46442-8 #### [facility] ([id number]) [address] [place] [address] [place] [address] Urea nitrogen [Mass/Vol] 21 mg/dL Normal 5-27 [facility] Comment on above: Performed By: #### C BCA, PINR, 84222-5, BMP, 3040-3, 81835-5, 5643-2, LIVR, 44466-1, 66396-8, THYR, 53270-8, 36923-0 #### [facility] ([id number]) [address] [place] [address] Glucose Glucometer (BldC) [M ass/Vol]on 06-30-2023 Glucose [Mass/Vol] 191 mg/dL High 65-99 [facility] Glucose [Mass/Vol] 188 mg/dL High 65-99 [facility] MAGNESIUMon 06-30-2023 Magnesium [Mass/Vol] 1.8 mg/dL Normal 1.8-2.6 [facility] Comment on above: Performed By: #### C BCA, PINR, 35582-3, BMP, 3040-3, 24989-0, 5643-2, LIVR, 85719-8, 31740-2, THYR, 42915-6, 88470-6 #### [facility] ([id number]) [address] [place] [address] POTASSIUMon 06-30-2023 Potassium [Moles/Vol] 3.7 mmol/L Normal 3.5-5.0 [facility] Comment on above: Performed By: #### C BCA, PINR, 76849-4, BMP, 3040-3, 46313-9, 5643-2, LIVR, 95991-8, 85004-9, THYR, 06440-7, 54036-7 #### [facility] ([id number]) [address] [place] [address] CBC AND AUTO DIFFon 06-29-19 24 ABSOLUTE BASOPHIL 0.0 X10E9/L Normal 0.0-0.2 [facility] Comment on above: Performed By: #### C BCA, PINR, 64186-9, BMP, 3040-3, 27158-6, 5643-2, LIVR, 78843-2, 48152-7, THYR, 69138-4, 77552-4 #### [facility] ([id number]) [address] [place] [address] ABSOLUTE NEUTROPHIL 6.1 X10E9/L Normal 1.5-6.6 [facility] Comment on above: Performed By: #### C BCA, PINR, 99674-6, BMP, 3040-3, 95132-5, 5643-2, LIVR, 82493-4, 64973-7, THYR, 59755-7, 53411-5 #### [facility] ([id number]) [address] [place] [address] [place] [address] Basophils/100 WBC (Bld) 0.5 % Normal [facility] Comment on above: Performed By: #### C BCA, PINR, 76877-0, BMP, 3040-3, 15718-6, 5643-2, LIVR, 56639-7, 19372-5, THYR, 71633-0, 77216-4 #### [facility] ([id number]) [address] [place] [address] Eosinophils (Bld) [#/Vol] 0.1 10*3/uL Normal 0.0-0.4 [facility] Comment on above: Performed By: #### C BCA, PINR, 78796-3, BMP, 3040-3, 12039-5, 5643-2, LIVR, 48677-4, 14634-7, THYR, 80443-4, 32548-6 #### [facility] ([id number]) [address] [place] [address] [place] [address] Eosinophils/100 WBC (Bld) 1.4 % Normal [facility] Comment on above: Performed By: #### C BCA, PINR, 82733-0, BMP, 3040-3, 95473-0, 5643-2, LIVR, 97498-8, 19434-5, THYR, 26996-9, 53273-3 #### [facility] ([id number]) [address] [place] [address] [place] [address] Erythrocyte distribution width (RBC) [Ratio] 15.2 % High 11.5-15.0 [facility] Comment on above: Performed By: #### C BCA, PINR, 50675-0, BMP, 3040-3, 70816-6, 5643-2, LIVR, 71794-7, 64868-8, THYR, 32676-9, 85341-8 #### [facility] ([id number]) [address] [place] [address] Hematocrit (Bld) [Volume fraction] 36.2 % Low 39-49 [facility] Comment on above: Performed By: #### C BCA, PINR, 85220-4, BMP, 3040-3, 21440-3, 5643-2, LIVR, 67693-2, 59084-6, THYR, 28836-0, 05366-1 #### [facility] ([id number]) [address] [place] [address]204 Hemoglobin (Bld) [Mass/Vol] 12.5 g/dL Low 13.0-17.0 [facility] Comment on above: Performed By: #### C BCA, PINR, 78534-8, BMP, 3040-3, 81119-1, 5643-2, LIVR, 47800-3, 08342-4, THYR, 91713-0, 55343-5 #### [facility] ([id number]) [address] [place] [address] [place] [address] Lymphocytes (Bld) [#/Vol] 0.9 10*3/uL Low 1.0-3.5 [facility] Comment on above: Performed By: #### C BCA, PINR, 63532-4, BMP, 3040-3, 92504-6, 5643-2, LIVR, 87779-5, 74041-8, THYR, 85984-6, 57700-6 #### [facility] ([id number]) [address] [place] [address] 16363 Lymphocytes/100 WBC (Bld) 11.6 % Normal [facility] Comment on above: Performed By: #### C BCA, PINR, 84339-5, BMP, 3040-3, 25239-3, 5643-2, LIVR, 96517-5, 28735-1, THYR, 39645-6, 38641-5 #### [facility] ([id number]) [address] [place] [address] 20800 MCH (RBC) [Entitic mass] 28.7 pg Normal 27-34 [facility] Comment on above: Performed By: #### C BCA, PINR, 89989-9, BMP, 3040-3, 72041-9, 5643-2, LIVR, 63474-8, 44266-3, THYR, 23253-9, 12102-8 #### [facility] ([id number]) [address] [place] [address] 27460 MCHC (RBC) [Mass/Vol] 34.4 g/dL Normal 32-36 [facility] Comment on above: Performed By: #### C BCA, PINR, 75543-0, BMP, 3040-3, 15282-6, 5643-2, LIVR, 40590-9, 23283-3, THYR, 38218-0, 98077-3 #### [facility] ([id number]) [address] [place] [address] 51880 MCV (RBC) [Entitic vol] 83 fL Normal 80-100 [facility] Comment on above: Performed By: #### C BCA, PINR, 26015-3, BMP, 3040-3, 25069-5, 5643-2, LIVR, 59170-8, 96408-3, THYR, 78142-6, 69441-0 #### [facility] ([id number]) [address] [place] [address] 37668 Monocytes (Bld) [#/Vol] 0.7 10*3/uL Normal 0-0.9 [facility] Comment on above: Performed By: #### C BCA, PINR, 87784-0, BMP, 3040-3, 53452-0, 5643-2, LIVR, 42934-6, 24462-8, THYR, 60335-1, 24974-7 #### [facility] ([id number]) [address] [place] [address] 92035 Monocytes/100 WBC (Bld) 8.5 % Normal [facility] Comment on above: Performed By: #### C BCA, PINR, 83027-7, BMP, 3040-3, 50035-6, 5643-2, LIVR, 54139-7, 79416-1, THYR, 80196-9, 77763-2 #### [facility] ([id number]) [address] [place] [address] 01217 Neutrophils/100 WBC (Bld) 78.0 % Normal [facility] Comment on above: Performed By: #### C BCA, PINR, 96969-4, BMP, 3040-3, 66160-2, 5643-2, LIVR, 56915-6, 69236-3, THYR, 30287-1, 04027-0 #### [facility] ([id number]) [address] [place] [address] 58165 Platelet mean volume (Bld) [Entitic vol] 7.9 fL Normal 7-12 [facility] Comment on above: Performed By: #### C BCA, PINR, 73396-2, BMP, 3040-3, 58619-4, 5643-2, LIVR, 80868-3, 48812-2, THYR, 55553-4, 53977-7 #### [facility] ([id number]) [address] [place] [address] 82381 Platelets (Bld) [#/Vol] 184 10*3/uL Normal 150-450 [facility] Comment on above: Performed By: #### C BCA, PINR, 64838-3, BMP, 3040-3, 18526-4, 5643-2, LIVR, 90396-9, 28564-1, THYR, 57589-6, 56530-6 #### [facility] ([id number]) [address] [place] [address] 28972 RBC COUNT 4.34 X10E12/L Normal 4.10-5.70 [facility] Comment on above: Performed By: #### C BCA, PINR, 87027-7, BMP, 3040-3, 81299-8, 5643-2, LIVR, 51842-5, 82247-0, THYR, 54395-8, 08284-1 #### [facility] ([id number]) [address] [place] [address] 97341 WBC (Bld) [#/Vol] 7.8 10*3/uL Normal 4.0-11.0 [facility] Comment on above: Performed By: #### C BCA, PINR, 95365-3, BMP, 3040-3, 06058-4, 5643-2, LIVR, 36045-8, 67747-4, THYR, 93584-1, 69007-1 #### [facility] ([id number]) [address] [place] [address] 11636 COMPREHENSIVE METABOLIC PANE Nilson 06-29-2023 Albumin [Mass/Vol] 3.4 g/dL Normal 3.2-5.3 [facility] Comment on above: Performed By: #### C BCA, PINR, 61514-9, BMP, 3040-3, 37809-3, 5643-2, LIVR, 05063-1, 24776-5, THYR, 06076-6, 78609-2 #### [facility] ([id number]) [address] [place] [address] 45085 ALP [Catalytic activity/Vol] 43 U/L Normal 39-130 [facility] Comment on above: Performed By: #### C BCA, PINR, 39056-5, BMP, 3040-3, 19038-4, 5643-2, LIVR, 56402-9, 06704-7, THYR, 60910-0, 99643-1 #### [facility] ([id number]) [address] [place] [address] 98018 ALT [Catalytic activity/Vol] 63 U/L High 0-40 [facility] Comment on above: Performed By: #### C BCA, PINR, 77885-4, BMP, 3040-3, 53086-4, 5643-2, LIVR, 57538-1, 52229-9, THYR, 03586-5, 37040-5 #### [facility] ([id number]) [address] [place] [address] 89976 Anion gap [Moles/Vol] 8 mmol/L Normal 5-15 [facility] Comment on above: Performed By: #### C BCA, PINR, 78399-3, BMP, 3040-3, 34248-5, 5643-2, LIVR, 38898-2, 69171-7, THYR, 01652-6, 82615-4 #### [facility] ([id number]) [address] [place] [address] 29454 AST [Catalytic activity/Vol] 64 U/L High 0-41 [facility] Comment on above: Performed By: #### C BCA, PINR, 56459-6, BMP, 3040-3, 46237-7, 5643-2, LIVR, 36891-8, 38443-0, THYR, 89696-3, 44928-4 #### [facility] ([id number]) [address] [place] [address] 22971 Bilirubin [Mass/Vol] 0.7 mg/dL Normal 0.3-1.2 [facility] Comment on above: Performed By: #### C BCA, PINR, 41754-6, BMP, 3040-3, 67535-0, 5643-2, LIVR, 99859-7, 05622-2, THYR, 39761-5, 39507-5 #### [facility] ([id number]) [address] [place] [address] 54949 Calcium [Mass/Vol] 8.2 mg/dL Low 8.5-10.5 [facility] Comment on above: Performed By: #### C BCA, PINR, 09590-0, BMP, 3040-3, 58397-3, 5643-2, LIVR, 40152-3, 54691-3, THYR, 13694-2, 52774-2 #### [facility] ([id number]) [address] [place] [address] 33544 Chloride [Moles/Vol] 103 mmol/L Normal 98-109 [facility] Comment on above: Performed By: #### C BCA, PINR, 00920-3, BMP, 3040-3, 68876-9, 5643-2, LIVR, 67261-7, 26844-5, THYR, 21863-4, 85031-8 #### [facility] ([id number]) [address] [place] [address] 72105 CO2 [Moles/Vol] 22 mmol/L Normal 22-32 [facility] Comment on above: Performed By: #### C BCA, PINR, 66650-3, BMP, 3040-3, 77008-0, 5643-2, LIVR, 69398-5, 35858-6, THYR, 34935-4, 47285-9 #### [facility] ([id number]) [address] [place] [address] [place] [address] Creatinine [Mass/Vol] 1.12 mg/dL Normal 0.70-1.20 [facility] Comment on above: Result Comment: METH OD TRACEABLE TO IDMS STANDARD Performed By: #### C BCA, PINR, 95668-9, BMP, 3040-3, 69690-9, 5643-2, LIVR, 75336-8, 39707-6, THYR, 31778-9, 59633-5 #### [facility] ([id number]) [address] [place] [address] 93011 GFR/1.73 sq M.predicted among non-blacks MDRD (S/P/Bld) [Vol rate/Area] 69 mL/min/{1.73_m2} Normal >59 [facility] Comment on above: Result Comment: Reported eGFR is based on the CKD-EPI 2020 equation that does not use a race coefficient. Performed By: #### C BCA, PINR, 89615-9, BMP, 3040-3, 19724-9, 5643-2, LIVR, 83837-1, 65567-5, THYR, 92435-6, 46910-6 #### [facility] ([id number]) [address] [place] [address] 51819 Glucose [Mass/Vol] 151 mg/dL High 65-99 [facility] Comment on above: Performed By: #### C BCA, PINR, 30850-6, BMP, 3040-3, 36241-0, 5643-2, LIVR, 00019-3, 42009-3, THYR, 06116-3, 52549-6 #### [facility] ([id number]) [address] [place] [address] 38298 Potassium [Moles/Vol] 3.6 mmol/L Normal 3.5-5.0 [facility] Comment on above: Performed By: #### C BCA, PINR, 14934-7, BMP, 3040-3, 03578-7, 5643-2, LIVR, 06738-2, 19008-8, THYR, 53339-7, 56610-8 #### [facility] ([id number]) [address] [place] [address] 73891 Protein [Mass/Vol] 6.3 g/dL Normal 6.0-8.0 [facility] Comment on above: Performed By: #### C BCA, PINR, 45530-6, BMP, 3040-3, 96525-2, 5643-2, LIVR, 20830-4, 45711-0, THYR, 25881-3, 29912-1 #### [facility] ([id number]) [address] [place] [address] 76990 Sodium [Moles/Vol] 133 mmol/L Low 134-146 [facility] Comment on above: Performed By: #### C BCA, PINR, 73721-1, BMP, 3040-3, 09837-7, 5643-2, LIVR, 14996-3, 00089-9, THYR, 31433-4, 82626-6 #### [facility] ([id number]) [address] [place] [address] 64508 Urea nitrogen [Mass/Vol] 31 mg/dL High 5-27 [facility] Comment on above: Performed By: #### C BCA, PINR, 44112-8, BMP, 3040-3, 02254-1, 5643-2, LIVR, 64995-0, 58028-4, THYR, 04507-1, 77938-6 #### [facility] ([id number]) [address] [place] [address] 50569 Glucose Glucometer (BldC) [M ass/Vol]on 06-29-2023 Glucose [Mass/Vol] 216 mg/dL High 65-99 [facility] Glucose [Mass/Vol] 160 mg/dL High 65-99 [facility] Glucose [Mass/Vol] 196 mg/dL High 65-99 [facility] Glucose [Mass/Vol] 135 mg/dL High 65-99 [facility] MAGNESIUMon 06-29-2023 Magnesium [Mass/Vol] 1.7 mg/dL Low 1.8-2.6 [facility] Comment on above: Performed By: #### C BCA, PINR, 33917-2, BMP, 3040-3, 33288-3, 5643-2, LIVR, 93544-1, 62442-1, THYR, 52202-7, 28010-8 #### [facility] ([id number]) [address] [place] [address] 31401 CBC AND AUTO DIFFon 06-28-19 24 ABSOLUTE BASOPHIL 0.0 X10E9/L Normal 0.0-0.2 [facility] Comment on above: Performed By: #### C BCA, PINR, 96530-2, BMP, 3040-3, 16753-0, 5643-2, LIVR, 85220-8, 15925-1, THYR, 54300-0, 83695-7 #### [facility] ([id number]) [address] [place] [address] 08394 ABSOLUTE NEUTROPHIL 2.9 X10E9/L Normal 1.5-6.6 [facility] Comment on above: Performed By: #### C BCA, PINR, 30473-2, BMP, 3040-3, 86658-7, 5643-2, LIVR, 40013-9, 12502-9, THYR, 36548-8, 00832-8 #### [facility] ([id number]) [address] [place] [address] [place] [address] Basophils/100 WBC (Bld) 0.5 % Normal [facility] Comment on above: Performed By: #### C BCA, PINR, 70061-5, BMP, 3040-3, 55747-7, 5643-2, LIVR, 71640-8, 77859-7, THYR, 06922-6, 18145-4 #### [facility] ([id number]) [address] [place] [address] 42072 Eosinophils (Bld) [#/Vol] 0.1 10*3/uL Normal 0.0-0.4 [facility] Comment on above: Performed By: #### C BCA, PINR, 07531-7, BMP, 3040-3, 48730-3, 5643-2, LIVR, 29768-1, 89789-8, THYR, 79859-7, 30457-8 #### [facility] ([id number]) [address] [place] [address] 35544 Eosinophils/100 WBC (Bld) 2.2 % Normal [facility] Comment on above: Performed By: #### C BCA, PINR, 73851-3, BMP, 3040-3, 75953-1, 5643-2, LIVR, 26485-8, 89622-6, THYR, 78943-1, 76187-2 #### [facility] ([id number]) [address] [place] [address] 93042 Erythrocyte distribution width (RBC) [Ratio] 15.1 % High 11.5-15.0 [facility] Comment on above: Performed By: #### C BCA, PINR, 84172-0, BMP, 3040-3, 14998-0, 5643-2, LIVR, 46396-2, 20103-2, THYR, 67043-9, 46255-7 #### [facility] ([id number]) [address] [place] [address] 15684 Hematocrit (Bld) [Volume fraction] 39.2 % Normal 39-49 [facility] Comment on above: Performed By: #### C BCA, PINR, 75922-7, BMP, 3040-3, 21323-0, 5643-2, LIVR, 27651-4, 28759-9, THYR, 79883-8, 10495-8 #### [facility] ([id number]) [address] [place] [address] 14213 Hemoglobin (Bld) [Mass/Vol] 13.5 g/dL Normal 13.0-17.0 [facility] Comment on above: Performed By: #### C BCA, PINR, 18901-1, BMP, 3040-3, 44238-3, 5643-2, LIVR, 10266-1, 91848-6, THYR, 77936-8, 60492-8 #### [facility] ([id number]) [address] [place] [address] 44684 Lymphocytes (Bld) [#/Vol] 1.6 10*3/uL Normal 1.0-3.5 [facility] Comment on above: Performed By: #### C BCA, PINR, 63534-8, BMP, 3040-3, 31074-4, 5643-2, LIVR, 18373-0, 07066-7, THYR, 02164-1, 95645-3 #### [facility] ([id number]) [address] [place] [address] 56428 Lymphocytes/100 WBC (Bld) 30.7 % Normal [facility] Comment on above: Performed By: #### C BCA, PINR, 27934-9, BMP, 3040-3, 52244-5, 5643-2, LIVR, 07547-8, 41398-0, THYR, 38876-4, 77953-6 #### [facility] ([id number]) [address] [place] [address] [place] [address] MCH (RBC) [Entitic mass] 28.8 pg Normal 27-34 [facility] Comment on above: Performed By: #### C BCA, PINR, 74843-0, BMP, 3040-3, 52243-4, 5643-2, LIVR, 65704-7, 51158-9, THYR, 33381-5, 74252-7 #### [facility] ([id number]) [address] [place] [address] 80358 MCHC (RBC) [Mass/Vol] 34.5 g/dL Normal 32-36 [facility] Comment on above: Performed By: #### C BCA, PINR, 85833-8, BMP, 3040-3, 32399-1, 5643-2, LIVR, 34400-1, 67235-7, THYR, 71388-9, 42889-5 #### [facility] ([id number]) [address] [place] [address] 48423 MCV (RBC) [Entitic vol] 84 fL Normal 80-100 [facility] Comment on above: Performed By: #### C BCA, PINR, 15988-4, BMP, 3040-3, 43068-6, 5643-2, LIVR, 19117-2, 01553-3, THYR, 87717-7, 15705-1 #### [facility] ([id number]) [address] [place] [address] 28665 Monocytes (Bld) [#/Vol] 0.5 10*3/uL Normal 0-0.9 [facility] Comment on above: Performed By: #### C BCA, PINR, 70823-6, BMP, 3040-3, 77726-7, 5643-2, LIVR, 01703-5, 32850-2, THYR, 60501-8, 73083-5 #### [facility] ([id number]) [address] [place] [address] 97025 Monocytes/100 WBC (Bld) 10.0 % Normal [facility] Comment on above: Performed By: #### C BCA, PINR, 51215-5, BMP, 3040-3, 57028-7, 5643-2, LIVR, 89170-1, 62955-3, THYR, 83903-0, 99953-7 #### [facility] ([id number]) [address] [place] [address] 22796 Neutrophils/100 WBC (Bld) 56.6 % Normal [facility] Comment on above: Performed By: #### C BCA, PINR, 53469-1, BMP, 3040-3, 18069-0, 5643-2, LIVR, 90082-7, 80785-2, THYR, 01361-3, 11055-9 #### [facility] ([id number]) [address] [place] [address] 01631 Platelet mean volume (Bld) [Entitic vol] 8.3 fL Normal 7-12 [facility] Comment on above: Performed By: #### C BCA, PINR, 75496-1, BMP, 3040-3, 39915-8, 5643-2, LIVR, 60320-9, 20097-4, THYR, 88254-9, 48184-1 #### [facility] ([id number]) [address] [place] [address] 88089 Platelets (Bld) [#/Vol] 212 10*3/uL Normal 150-450 [facility] Comment on above: Performed By: #### C BCA, PINR, 66534-6, BMP, 3040-3, 56378-3, 5643-2, LIVR, 45226-0, 95957-3, THYR, 62321-8, 97844-8 #### [facility] ([id number]) [address] [place] [address] [place] [address] RBC COUNT 4.69 X10E12/L Normal 4.10-5.70 [facility] Comment on above: Performed By: #### C BCA, PINR, 08630-4, BMP, 3040-3, 13131-8, 5643-2, LIVR, 02333-5, 15061-3, THYR, 72187-8, 49600-1 #### [facility] ([id number]) [address] [place] [address] 22398 WBC (Bld) [#/Vol] 5.1 10*3/uL Normal 4.0-11.0 [facility] Comment on above: Performed By: #### C BCA, PINR, 88064-1, BMP, 3040-3, 17411-7, 5643-2, LIVR, 68712-6, 26740-5, THYR, 42380-2, 26623-5 #### [facility] ([id number]) [address] [place] [address] 83886 COMPREHENSIVE METABOLIC PANE Nilson 06-28-2023 Albumin [Mass/Vol] 3.4 g/dL Normal 3.2-5.3 [facility] Comment on above: Performed By: #### C BCA, PINR, 12080-9, BMP, 3040-3, 92711-5, 5643-2, LIVR, 45999-5, 52679-1, THYR, 25247-6, 06580-0 #### [facility] ([id number]) [address] [place] [address] 91784 ALP [Catalytic activity/Vol] 39 U/L Normal 39-130 [facility] Comment on above: Performed By: #### C BCA, PINR, 74171-4, BMP, 3040-3, 34566-1, 5643-2, LIVR, 31119-0, 17492-3, THYR, 44015-1, 32765-0 #### [facility] ([id number]) [address] [place] [address] 99345 ALT [Catalytic activity/Vol] 62 U/L High 0-40 [facility] Comment on above: Performed By: #### C BCA, PINR, 11673-5, BMP, 3040-3, 03655-4, 5643-2, LIVR, 76085-2, 41223-9, THYR, 38957-3, 13925-4 #### [facility] ([id number]) [address] [place] [address] 38916 Anion gap [Moles/Vol] 11 mmol/L Normal 5-15 [facility] Comment on above: Performed By: #### C BCA, PINR, 36272-1, BMP, 3040-3, 61492-5, 5643-2, LIVR, 58478-7, 97723-0, THYR, 37194-9, 79081-7 #### [facility] ([id number]) [address] [place] [address] 46618 AST [Catalytic activity/Vol] 87 U/L High 0-41 [facility] Comment on above: Performed By: #### C BCA, PINR, 11036-2, BMP, 3040-3, 32531-7, 5643-2, LIVR, 79984-9, 12759-2, THYR, 95285-9, 18463-0 #### [facility] ([id number]) [address] [place] [address] 38737 Bilirubin [Mass/Vol] 0.7 mg/dL Normal 0.3-1.2 [facility] Comment on above: Performed By: #### C BCA, PINR, 28484-3, BMP, 3040-3, 84057-5, 5643-2, LIVR, 65530-0, 53621-3, THYR, 42675-0, 91232-1 #### [facility] ([id number]) [address] [place] [address] 86964 Calcium [Mass/Vol] 8.6 mg/dL Normal 8.5-10.5 [facility] Comment on above: Performed By: #### C BCA, PINR, 66660-8, BMP, 3040-3, 56597-1, 5643-2, LIVR, 14361-9, 91425-5, THYR, 02970-3, 96360-6 #### [facility] ([id number]) [address] [place] [address] 67671 Chloride [Moles/Vol] 103 mmol/L Normal 98-109 [facility] Comment on above: Performed By: #### C BCA, PINR, 54849-8, BMP, 3040-3, 66398-4, 5643-2, LIVR, 98798-8, 72641-6, THYR, 09177-7, 36324-6 #### [facility] ([id number]) [address] [place] [address] 59924 CO2 [Moles/Vol] 21 mmol/L Low 22-32 [facility] Comment on above: Performed By: #### C BCA, PINR, 97863-8, BMP, 3040-3, 03361-4, 5643-2, LIVR, 19926-3, 90698-7, THYR, 72495-4, 93021-4 #### [facility] ([id number]) [address] [place] [address] 56347 Creatinine [Mass/Vol] 1.40 mg/dL High 0.70-1.20 [facility] Comment on above: Result Comment: METH OD TRACEABLE TO IDMS STANDARD Performed By: #### C BCA, PINR, 59012-5, BMP, 3040-3, 35093-9, 5643-2, LIVR, 51292-8, 76952-3, THYR, 46270-2, 88871-9 #### [facility] ([id number]) [address] [place] [address] 70191 GFR/1.73 sq M.predicted among non-blacks MDRD (S/P/Bld) [Vol rate/Area] 53 mL/min/{1.73_m2} Low >59 [facility] Comment on above: Result Comment: Reported eGFR is based on the CKD-EPI 2020 equation that does not use a race coefficient. Performed By: #### C BCA, PINR, 43337-2, BMP, 3040-3, 42734-5, 5643-2, LIVR, 84958-9, 66889-7, THYR, 06917-1, 28046-8 #### [facility] ([id number]) [address] [place] [address] 45255 Glucose [Mass/Vol] 127 mg/dL High 65-99 [facility] Comment on above: Performed By: #### C BCA, PINR, 94471-2, BMP, 3040-3, 21027-2, 5643-2, LIVR, 78722-7, 83741-1, THYR, 29924-0, 44135-0 #### [facility] ([id number]) [address] [place] [address], [place] [address] Potassium [Moles/Vol] 3.4 mmol/L Low 3.5-5.0 [facility] Comment on above: Performed By: #### C BCA, PINR, 18444-9, BMP, 3040-3, 20041-7, 5643-2, LIVR, 39167-3, 83789-7, THYR, 29754-9, 23288-6 #### [facility] ([id number]) [address] [place] [address], [place] [address] Protein [Mass/Vol] 6.6 g/dL Normal 6.0-8.0 [facility] Comment on above: Performed By: #### C BCA, PINR, 75511-8, BMP, 3040-3, 36881-7, 5643-2, LIVR, 59329-2, 42902-9, THYR, 24557-7, 37383-0 #### [facility] ([id number]) [address] [place] [address], [place] [address] Sodium [Moles/Vol] 135 mmol/L Normal 134-146 [facility] Comment on above: Performed By: #### C BCA, PINR, 99464-3, BMP, 3040-3, 18309-4, 5643-2, LIVR, 38743-7, 05892-1, THYR, 55884-7, 75844-6 #### [facility] ([id number]) [address] [place] [address], [place] [address] Urea nitrogen [Mass/Vol] 38 mg/dL High 5-27 [facility] Comment on above: Performed By: #### C BCA, PINR, 69076-3, BMP, 3040-3, 19868-5, 5643-2, LIVR, 93538-4, 90902-0, THYR, 82839-1, 67856-0 #### [facility] ([id number]) [address] [place] [address] 16590 Glucose Glucometer (BldC) [M ass/Vol]on 06-28-2023 Glucose [Mass/Vol] 123 mg/dL High 65-99 [facility] Glucose [Mass/Vol] 160 mg/dL High 65-99 [facility] Glucose [Mass/Vol] 208 mg/dL High 65-99 [facility] Glucose [Mass/Vol] 132 mg/dL High 65-99 [facility] MAGNESIUMon 06-28-2023 Magnesium [Mass/Vol] 2.1 mg/dL Normal 1.8-2.6 [facility] Comment on above: Performed By: #### C BCA, PINR, 69207-9, BMP, 3040-3, 98059-3, 5643-2, LIVR, 74719-1, 88487-7, THYR, 38953-5, 21658-3 #### [facility] ([id number]) [address] [place] [address] 33620 POTASSIUMon 06-28-2023 Potassium [Moles/Vol] 3.8 mmol/L Normal 3.5-5.0 [facility] Comment on above: Performed By: #### C BCA, PINR, 73233-3, BMP, 3040-3, 68303-9, 5643-2, LIVR, 46126-8, 10538-3, THYR, 99163-9, 77639-5 #### [facility] ([id number]) [address] [place] [address] 67007 CBC AND AUTO DIFFon 06-27-20 23 ABSOLUTE BASOPHIL 0.0 X10E9/L Normal 0.0-0.2 [facility] Comment on above: Performed By: #### C BCA, PINR, 02397-3, BMP, 3040-3, 15892-4, 5643-2, LIVR, 63616-6, 41380-3, THYR, 60603-7, 75354-1 #### [facility] ([id number]) [address] [place] [address], [place] [address] ABSOLUTE NEUTROPHIL 4.4 X10E9/L Normal 1.5-6.6 [facility] Comment on above: Performed By: #### C BCA, PINR, 26196-1, BMP, 3040-3, 77467-9, 5643-2, LIVR, 62442-4, 05982-8, THYR, 72470-9, 77751-2 #### [facility] ([id number]) [address] [place] [address], [place] [address] Basophils/100 WBC (Bld) 0.3 % Normal [facility] Comment on above: Performed By: #### C BCA, PINR, 80599-3, BMP, 3040-3, 41307-7, 5643-2, LIVR, 56609-6, 05981-6, THYR, 55859-2, 64048-3 #### [facility] ([id number]) [address] [place] [address], [place] [address] Eosinophils (Bld) [#/Vol] 0.0 10*3/uL Normal 0.0-0.4 [facility] Comment on above: Performed By: #### C BCA, PINR, 90152-1, BMP, 3040-3, 50876-3, 5643-2, LIVR, 60274-8, 40367-0, THYR, 92450-5, 71607-4 #### [facility] ([id number]) [address] [place] [address], [place] [address] Eosinophils/100 WBC (Bld) 0.1 % Normal [facility] Comment on above: Performed By: #### C BCA, PINR, 80873-2, BMP, 3040-3, 96654-3, 5643-2, LIVR, 08773-6, 28293-2, THYR, 65644-6, 91772-4 #### [facility] ([id number]) [address] [place] [address] 18627 Erythrocyte distribution width (RBC) [Ratio] 15.2 % High 11.5-15.0 [facility] Comment on above: Performed By: #### C BCA, PINR, 69548-2, BMP, 3040-3, 17214-5, 5643-2, LIVR, 58765-0, 74061-0, THYR, 83942-6, 39528-7 #### [facility] ([id number]) [address] [place] [address] 03617 Hematocrit (Bld) [Volume fraction] 40.7 % Normal 39-49 [facility] Comment on above: Performed By: #### C BCA, PINR, 25770-7, BMP, 3040-3, 85704-0, 5643-2, LIVR, 80741-2, 73255-0, THYR, 81161-0, 01216-9 #### [facility] ([id number]) [address] [place] [address] [place] [address] Hemoglobin (Bld) [Mass/Vol] 14.2 g/dL Normal 13.0-17.0 [facility] Comment on above: Performed By: #### C BCA, PINR, 84190-0, BMP, 3040-3, 02629-7, 5643-2, LIVR, 17295-7, 83145-1, THYR, 12849-8, 97254-2 #### [facility] ([id number]) [address] [place] [address] 32960 Lymphocytes (Bld) [#/Vol] 0.8 10*3/uL Low 1.0-3.5 [facility] Comment on above: Performed By: #### C BCA, PINR, 98891-4, BMP, 3040-3, 10141-4, 5643-2, LIVR, 10619-4, 33913-9, THYR, 73100-2, 85578-7 #### [facility] ([id number]) [address] [place] [address] 48118 Lymphocytes/100 WBC (Bld) 13.3 % Normal [facility] Comment on above: Performed By: #### C BCA, PINR, 65305-9, BMP, 3040-3, 09885-8, 5643-2, LIVR, 92696-5, 22253-3, THYR, 52091-2, 75819-6 #### [facility] ([id number]) [address] [place] [address] 31979 MCH (RBC) [Entitic mass] 29.2 pg Normal 27-34 [facility] Comment on above: Performed By: #### C BCA, PINR, 88326-6, BMP, 3040-3, 48981-5, 5643-2, LIVR, 65308-6, 90291-9, THYR, 85042-7, 45664-5 #### [facility] ([id number]) [address] [place] [address] [place] [address] MCHC (RBC) [Mass/Vol] 35.0 g/dL Normal 32-36 [facility] Comment on above: Performed By: #### C BCA, PINR, 78339-7, BMP, 3040-3, 67434-4, 5643-2, LIVR, 57175-8, 93886-4, THYR, 19914-1, 72941-9 #### [facility] ([id number]) [address] [place] [address] [place] [address] MCV (RBC) [Entitic vol] 84 fL Normal 80-100 [facility] Comment on above: Performed By: #### C BCA, PINR, 38438-0, BMP, 3040-3, 96464-5, 5643-2, LIVR, 09180-0, 09711-6, THYR, 82461-3, 07997-5 #### [facility] ([id number]) [address] [place] [address] 67779 Monocytes (Bld) [#/Vol] 0.8 10*3/uL Normal 0-0.9 [facility] Comment on above: Performed By: #### C BCA, PINR, 80133-0, BMP, 3040-3, 03070-1, 5643-2, LIVR, 76075-0, 08301-5, THYR, 19655-6, 48922-7 #### [facility] ([id number]) [address] [place] [address] 83419 Monocytes/100 WBC (Bld) 12.8 % Normal [facility] Comment on above: Performed By: #### C BCA, PINR, 68861-0, BMP, 3040-3, 04520-4, 5643-2, LIVR, 14242-1, 41711-4, THYR, 36521-9, 18056-4 #### [facility] ([id number]) [address] [place] [address] [place] [address] Neutrophils/100 WBC (Bld) 73.5 % Normal [facility] Comment on above: Performed By: #### C BCA, PINR, 31551-5, BMP, 3040-3, 51796-1, 5643-2, LIVR, 98368-6, 03395-5, THYR, 46111-8, 73882-9 #### [facility] ([id number]) [address] [place] [address] Platelet mean volume (Bld) [Entitic vol] 8.1 fL Normal 7-12 [facility] Comment on above: Performed By: #### C BCA, PINR, 08049-2, BMP, 3040-3, 47271-3, 5643-2, LIVR, 20526-0, 31487-6, THYR, 15856-2, 41816-2 #### [facility] ([id number]) [address] [place] [address] Platelets (Bld) [#/Vol] 226 10*3/uL Normal 150-450 [facility] Comment on above: Performed By: #### C BCA, PINR, 14704-8, BMP, 3040-3, 34655-8, 5643-2, LIVR, 53815-1, 08222-4, THYR, 63271-1, 45205-8 #### [facility] ([id number]) [address] [place] [address] RBC COUNT 4.87 X10E12/L Normal 4.10-5.70 [facility] Comment on above: Performed By: #### C BCA, PINR, 70399-0, BMP, 3040-3, 53180-9, 5643-2, LIVR, 38675-8, 80592-7, THYR, 49231-0, 71896-3 #### [facility] ([id number]) [address] [place] [address] [place] [address] WBC (Bld) [#/Vol] 6.0 10*3/uL Normal 4.0-11.0 [facility] Comment on above: Performed By: #### C BCA, PINR, 99399-8, BMP, 3040-3, 49151-0, 5643-2, LIVR, 62716-4, 23772-9, THYR, 37036-8, 66477-5 #### [facility] ([id number]) [address] [place] [address] COMPREHENSIVE METABOLIC PANE [facility] 06-27-2023 Albumin [Mass/Vol] 3.5 g/dL Normal 3.2-5.3 [facility] Comment on above: Performed By: #### C BCA, PINR, 42906-9, BMP, 3040-3, 61389-5, 5643-2, LIVR, 21091-1, 79176-9, THYR, 80916-5, 54953-8 #### [facility] ([id number]) [address] [place] [address] ALP [Catalytic activity/Vol] 43 U/L Normal 39-130 [facility] Comment on above: Performed By: #### C BCA, PINR, 87841-1, BMP, 3040-3, 31126-7, 5643-2, LIVR, 40559-6, 77066-6, THYR, 98448-6, 89923-5 #### [facility] ([id number]) [address] [place] [address]73 ALT [Catalytic activity/Vol] 40 U/L Normal 0-40 [facility] Comment on above: Performed By: #### C BCA, PINR, 77286-1, BMP, 3040-3, 95107-1, 5643-2, LIVR, 99418-3, 04494-0, THYR, 16062-7, 96975-5 #### [facility] ([id number]) [address] [place] [address] [place] [address] Anion gap [Moles/Vol] 8 mmol/L Normal 5-15 [facility] Comment on above: Performed By: #### C BCA, PINR, 02888-7, BMP, 3040-3, 32630-7, 5643-2, LIVR, 38353-9, 57654-0, THYR, 10620-6, 41907-0 #### [facility] ([id number]) [address] [place] [address]60 AST [Catalytic activity/Vol] 63 U/L High 0-41 [facility] Comment on above: Performed By: #### C BCA, PINR, 98418-0, BMP, 3040-3, 73487-1, 5643-2, LIVR, 89757-5, 26871-5, THYR, 81474-6, 10839-9 #### [facility] ([id number]) [address] [place] [address] Bilirubin [Mass/Vol] 0.9 mg/dL Normal 0.3-1.2 [facility] Comment on above: Performed By: #### C BCA, PINR, 32563-7, BMP, 3040-3, 85447-6, 5643-2, LIVR, 76495-6, 68080-6, THYR, 91016-6, 34915-2 #### [facility] ([id number]) [address] [place] [address] [place] [address] Calcium [Mass/Vol] 8.7 mg/dL Normal 8.5-10.5 [facility] Comment on above: Performed By: #### C BCA, PINR, 83918-3, BMP, 3040-3, 03633-7, 5643-2, LIVR, 32587-9, 78957-7, THYR, 86787-3, 03899-2 #### [facility] ([id number]) [address] [place] [address] [place] [address] Chloride [Moles/Vol] 106 mmol/L Normal 98-109 [facility] Comment on above: Performed By: #### C BCA, PINR, 07806-4, BMP, 3040-3, 00358-9, 5643-2, LIVR, 74196-7, 75162-0, THYR, 62109-3, 49779-0 #### [facility] ([id number]) [address] [place] [address] [place] [address] CO2 [Moles/Vol] 23 mmol/L Normal 22-32 [facility] Comment on above: Performed By: #### C BCA, PINR, 59229-1, BMP, 3040-3, 52006-3, 5643-2, LIVR, 37522-2, 28738-7, THYR, 28812-4, 77696-0 #### [facility] ([id number]) [address] [place] [address] Creatinine [Mass/Vol] 1.22 mg/dL High 0.70-1.20 [facility] Comment on above: Result Comment: METH OD TRACEABLE TO IDMS STANDARD Performed By: #### C BCA, PINR, 51403-0, BMP, 3040-3, 98151-6, 5643-2, LIVR, 97726-9, 35338-5, THYR, 15549-6, 01054-9 #### [facility] ([id number]) [address] [place] [address] GFR/1.73 sq M.predicted among non-blacks MDRD (S/P/Bld) [Vol rate/Area] 62 mL/min/{1.73_m2} Normal >59 [facility] Comment on above: Result Comment: Reported eGFR is based on the CKD-EPI 2020 equation that does not use a race coefficient. Performed By: #### C BCA, PINR, 10477-1, BMP, 3040-3, 16361-9, 5643-2, LIVR, 31416-3, 41724-7, THYR, 11596-6, 80440-9 #### [facility] ([id number]) [address] [place] [address] 39182 Glucose [Mass/Vol] 153 mg/dL High 65-99 [facility] Comment on above: Performed By: #### C BCA, PINR, 77207-0, BMP, 3040-3, 01739-7, 5643-2, LIVR, 81666-0, 65021-2, THYR, 93592-1, 22694-8 #### [facility] ([id number]) [address] [place] [address] 50048 Potassium [Moles/Vol] 3.8 mmol/L Normal 3.5-5.0 [facility] Comment on above: Performed By: #### C BCA, PINR, 65178-3, BMP, 3040-3, 21028-7, 5643-2, LIVR, 13703-8, 91362-3, THYR, 17914-4, 02315-7 #### [facility] ([id number]) [address] [place] [address] [place] [address] Protein [Mass/Vol] 6.9 g/dL Normal 6.0-8.0 [facility] Comment on above: Performed By: #### C BCA, PINR, 52955-0, BMP, 3040-3, 24327-6, 5643-2, LIVR, 90116-9, 60733-0, THYR, 13126-5, 64551-6 #### [facility] ([id number]) [address] [place] [address] [place] [address] Sodium [Moles/Vol] 137 mmol/L Normal 134-146 [facility] Comment on above: Performed By: #### C BCA, PINR, 47798-5, BMP, 3040-3, 21453-1, 5643-2, LIVR, 87689-5, 71407-0, THYR, 81366-0, 36381-4 #### [facility] ([id number]) [address] [place] [address] [place] [address] Urea nitrogen [Mass/Vol] 30 mg/dL High 5-27 [facility] Comment on above: Performed By: #### C BCA, PINR, 66562-5, BMP, 3040-3, 22733-0, 5643-2, LIVR, 22101-1, 90918-9, THYR, 81179-1, 84662-6 #### [facility] ([id number]) [address] [place] [address] [place] [address] Glucose Glucometer (BldC) [M ass/Vol]on 06-27-2023 Glucose [Mass/Vol] 149 mg/dL High 65-99 [facility] Glucose [Mass/Vol] 138 mg/dL High 65-99 [facility] Glucose [Mass/Vol] 218 mg/dL High 65-99 [facility] Glucose [Mass/Vol] 144 mg/dL High 65-99 [facility] Glucose [Mass/Vol] 176 mg/dL High 65-99 [facility] HGB A1C (GLYCO-HGB)on 2022 Glucose [Mass/Vol] 160 mg/dL Normal [facility] Comment on above: Performed By: #### C BCA, PINR, 34384-2, BMP, 3040-3, 40713-8, 5643-2, LIVR, 55700-6, 23897-9, THYR, 47201-0, 38383-2 #### [facility] ([id number]) [address] [place] [address] 26153 HbA1c (Bld) [Mass fraction] 7.2 % High 4.4-5.6 [facility] Comment on above: Result Comment: NOTE ADA Guidelines Result HgbA1c Normal : less than 5.7 % Prediabetes : 5.7 % to 6.4 % Diabetes : > 6.4 % Use with caution in patients with abnormal hemoglobin variants as the half-life of red blood cells and in vivo glycation rates are affected. Performed By: #### C BCA, PINR, 44527-0, BMP, 3040-3, 38571-6, 5643-2, LIVR, 96010-8, 97560-4, THYR, 72548-5, 14811-8 #### [facility] ([id number]) [address] [place] [address] 59295 MAGNESIUMon 06-27-2023 Magnesium [Mass/Vol] 2.2 mg/dL Normal 1.8-2.6 [facility] Comment on above: Performed By: #### C BCA, PINR, 28459-7, BMP, 3040-3, 63051-8, 5643-2, LIVR, 82357-5, 20054-3, THYR, 05102-2, 07960-4 #### [facility] ([id number]) [address] [place] [address] 25527 Prostate specific Ag [Mass/V ol]on 06-27-2023 PSA SCREEN 1.78 ng/mL Normal 0.00-4.00 [facility] Comment on above: Result Comment: The method used for this test is Mariaa Mango DSP DXI chemiluminescent immunoassay. Values obtained by different assay methods cannot be used interchangeably. Performed By: #### C BCA, PINR, 98849-1, BMP, 3040-3, 69108-8, 5643-2, LIVR, 25884-9, 81513-5, THYR, 12258-9, 85524-1 #### [facility] ([id number]) [address] [place] [address] 09887 BASIC METABOLIC PANLon 06-26 Anion gap [Moles/Vol] 6 mmol/L Normal 5-15 [facility] Comment on above: Performed By: #### C BCA, PINR, 99325-9, BMP, 3040-3, 84670-2, 5643-2, LIVR, 15848-3, 81501-6, THYR, 47291-3, 96701-0 #### [facility] ([id number]) [address] [place] [address] 74519 Calcium [Mass/Vol] 8.6 mg/dL Normal 8.5-10.5 [facility] Comment on above: Performed By: #### C BCA, PINR, 37837-6, BMP, 3040-3, 79495-9, 5643-2, LIVR, 48284-6, 37429-0, THYR, 90629-3, 11036-5 #### [facility] ([id number]) [address] [place] [address] 63777 Chloride [Moles/Vol] 104 mmol/L Normal 98-109 [facility] Comment on above: Performed By: #### C BCA, PINR, 48913-9, BMP, 3040-3, 33972-8, 5643-2, LIVR, 71770-5, 69160-4, THYR, 61606-5, 49626-8 #### [facility] ([id number]) [address] [place] [address] 42399 CO2 [Moles/Vol] 25 mmol/L Normal 22-32 [facility] Comment on above: Performed By: #### C BCA, PINR, 39395-8, BMP, 3040-3, 90318-7, 5643-2, LIVR, 32832-5, 88925-1, THYR, 44725-5, 97909-8 #### [facility] ([id number]) [address] [place] [address] 87165 Creatinine [Mass/Vol] 1.07 mg/dL Normal 0.70-1.20 [facility] Comment on above: Result Comment: METH OD TRACEABLE TO IDMS STANDARD Performed By: #### C BCA, PINR, 25631-0, BMP, 3040-3, 06917-9, 5643-2, LIVR, 52363-4, 03912-3, THYR, 10784-3, 24378-1 #### [facility] ([id number]) [address] [place] [address] 86791 GFR/1.73 sq M.predicted among non-blacks MDRD (S/P/Bld) [Vol rate/Area] 73 mL/min/{1.73_m2} Normal >59 [facility] Comment on above: Result Comment: Reported eGFR is based on the CKD-EPI 2020 equation that does not use a race coefficient. Performed By: #### C BCA, PINR, 80093-9, BMP, 3040-3, 90328-6, 5643-2, LIVR, 18555-8, 07908-4, THYR, 96750-8, 16869-1 #### [facility] ([id number]) [address] [place] [address] [place] [address] Glucose [Mass/Vol] 129 mg/dL High 65-99 [facility] Comment on above: Performed By: #### C BCA, PINR, 75512-0, BMP, 3040-3, 93707-5, 5643-2, LIVR, 58328-1, 02460-1, THYR, 92322-5, 39317-2 #### [facility] ([id number]) [address] [place] [address] 21513 Potassium [Moles/Vol] 3.8 mmol/L Normal 3.5-5.0 [facility] Comment on above: Performed By: #### C BCA, PINR, 56921-3, BMP, 3040-3, 93815-4, 5643-2, LIVR, 20161-1, 11500-5, THYR, 66895-0, 37839-4 #### [facility] ([id number]) [address] [place] [address] 07330 Sodium [Moles/Vol] 135 mmol/L Normal 134-146 [facility] Comment on above: Performed By: #### C BCA, PINR, 34054-5, BMP, 3040-3, 32184-7, 5643-2, LIVR, 03421-4, 06942-2, THYR, 28274-6, 12181-0 #### [facility] ([id number]) [address] [place] [address] [place] [address] Urea nitrogen [Mass/Vol] 23 mg/dL Normal 5-27 [facility] Comment on above: Performed By: #### C BCA, PINR, 07984-6, BMP, 3040-3, 22603-5, 5643-2, LIVR, 46193-2, 70612-9, THYR, 41982-5, 02757-1 #### [facility] ([id number]) [address] [place] [address] CBC AND AUTO DIFFon 06-26- ABSOLUTE BASOPHIL 0.0 X10E9/L Normal 0.0-0.2 [facility] Comment on above: Performed By: #### C BCA, PINR, 66666-9, BMP, 3040-3, 69482-4, 5643-2, LIVR, 08904-6, 52840-2, THYR, 52674-8, 55876-1 #### [facility] ([id number]) [address] [place] [address] 38204 ABSOLUTE NEUTROPHIL 5.3 X10E9/L Normal 1.5-6.6 [facility] Comment on above: Performed By: #### C BCA, PINR, 20557-9, BMP, 3040-3, 72948-7, 5643-2, LIVR, 17079-5, 64282-8, THYR, 97565-4, 71375-1 #### [facility] ([id number]) [address] [place] [address] 94264 Basophils/100 WBC (Bld) 0.5 % Normal [facility] Comment on above: Performed By: #### C BCA, PINR, 48619-7, BMP, 3040-3, 23857-6, 5643-2, LIVR, 90753-9, 01349-6, THYR, 53192-6, 27804-7 #### [facility] ([id number]) [address] [place] [address] 74238 Eosinophils (Bld) [#/Vol] 0.0 10*3/uL Normal 0.0-0.4 [facility] Comment on above: Performed By: #### C BCA, PINR, 27354-0, BMP, 3040-3, 95383-4, 5643-2, LIVR, 29591-0, 72433-8, THYR, 71214-5, 21933-0 #### [facility] ([id number]) [address] [place] [address] 44034 Eosinophils/100 WBC (Bld) 0.1 % Normal [facility] Comment on above: Performed By: #### C BCA, PINR, 84134-9, BMP, 3040-3, 27013-1, 5643-2, LIVR, 93520-7, 41720-2, THYR, 43922-3, 70301-2 #### [facility] ([id number]) [address] [place] [address] 01969 Erythrocyte distribution width (RBC) [Ratio] 15.3 % High 11.5-15.0 [facility] Comment on above: Performed By: #### C BCA, PINR, 08293-2, BMP, 3040-3, 94852-6, 5643-2, LIVR, 01382-4, 14646-6, THYR, 17242-4, 61821-8 #### [facility] ([id number]) [address] [place] [address] 50197 Hematocrit (Bld) [Volume fraction] 37.7 % Low 39-49 [facility] Comment on above: Performed By: #### C BCA, PINR, 63735-6, BMP, 3040-3, 23732-4, 5643-2, LIVR, 32603-5, 39586-6, THYR, 63921-1, 22622-5 #### [facility] ([id number]) [address] [place] [address] 31996 Hemoglobin (Bld) [Mass/Vol] 13.1 g/dL Normal 13.0-17.0 [facility] Comment on above: Performed By: #### C BCA, PINR, 62429-0, BMP, 3040-3, 52387-8, 5643-2, LIVR, 34700-0, 17125-0, THYR, 73064-7, 49768-0 #### [facility] ([id number]) [address] [place] [address] 99312 Lymphocytes (Bld) [#/Vol] 0.4 10*3/uL Low 1.0-3.5 [facility] Comment on above: Performed By: #### C BCA, PINR, 43217-1, BMP, 3040-3, 42235-7, 5643-2, LIVR, 01926-5, 13341-3, THYR, 17282-9, 48030-1 #### [facility] ([id number]) [address] [place] [address] 52161 Lymphocytes/100 WBC (Bld) 6.7 % Normal [facility] Comment on above: Performed By: #### C BCA, PINR, 59055-7, BMP, 3040-3, 40529-4, 5643-2, LIVR, 03508-6, 98469-3, THYR, 96411-2, 03709-1 #### [facility] ([id number]) [address] [place] [address] 77136 MCH (RBC) [Entitic mass] 29.1 pg Normal 27-34 [facility] Comment on above: Performed By: #### C BCA, PINR, 72621-1, BMP, 3040-3, 48845-2, 5643-2, LIVR, 29506-1, 85442-2, THYR, 76126-2, 39871-7 #### [facility] ([id number]) [address] [place] [address] 89175 MCHC (RBC) [Mass/Vol] 34.8 g/dL Normal 32-36 [facility] Comment on above: Performed By: #### C BCA, PINR, 62774-6, BMP, 3040-3, 74183-6, 5643-2, LIVR, 62842-0, 82480-3, THYR, 65316-4, 88564-6 #### [facility] ([id number]) [address] [place] [address] 76654 MCV (RBC) [Entitic vol] 84 fL Normal 80-[address] [facility] Comment on above: Performed By: #### C BCA, PINR, 29185-8, BMP, 3040-3, 36172-0, 5643-2, LIVR, 22463-1, 21489-5, THYR, 45225-1, 25082-7 #### [facility] ([id number]) [address] [place] [address] 11855 Monocytes (Bld) [#/Vol] 0.7 10*3/uL Normal 0-0.9 [facility] Comment on above: Performed By: #### C BCA, PINR, 52677-9, BMP, 3040-3, 14344-7, 5643-2, LIVR, 56641-2, 17412-8, THYR, 23960-9, 70047-0 #### [facility] ([id number]) [address] [place] [address] 70364 Monocytes/100 WBC (Bld) 10.7 % Normal [facility] Comment on above: Performed By: #### C BCA, PINR, 53414-6, BMP, 3040-3, 65410-3, 5643-2, LIVR, 83326-2, 57715-4, THYR, 10365-4, 24944-5 #### [facility] ([id number]) [address] [place] [address] 49431 Neutrophils/100 WBC (Bld) 82.0 % Normal [facility] Comment on above: Performed By: #### C BCA, PINR, 58026-8, BMP, 3040-3, 11824-9, 5643-2, LIVR, 43936-8, 64989-4, THYR, 32663-5, 28209-0 #### [facility] ([id number]) [address] [place] [address] 92770 Platelet mean volume (Bld) [Entitic vol] 7.5 fL Normal 7-12 [facility] Comment on above: Performed By: #### C BCA, PINR, 59014-1, BMP, 3040-3, 54374-8, 5643-2, LIVR, 53933-9, 45053-0, THYR, 78160-1, 20428-9 #### [facility] ([id number]) [address] [place] [address] 67876 Platelets (Bld) [#/Vol] 215 10*3/uL Normal 150-450 [facility] Comment on above: Performed By: #### C BCA, PINR, 34790-6, BMP, 3040-3, 94291-4, 5643-2, LIVR, 22937-3, 88777-2, THYR, 68722-3, 45156-1 #### [facility] ([id number]) [address] [place] [address] 39861 RBC COUNT 4.51 X10E12/L Normal 4.10-5.70 [facility] Comment on above: Performed By: #### C BCA, PINR, 47809-1, BMP, 3040-3, 52482-1, 5643-2, LIVR, 09680-0, 77572-4, THYR, 91218-1, 87762-2 #### [facility] ([id number]) [address] [place] [address] 72076 WBC (Bld) [#/Vol] 6.4 10*3/uL Normal 4.0-11.0 [facility] Comment on above: Performed By: #### C BCA, PINR, 81700-5, BMP, 3040-3, 69025-6, 5643-2, LIVR, 57781-0, 78395-5, THYR, 05582-9, 63252-6 #### [facility] ([id number]) [address] [place] [address] [place] [address]RA[address] CONT[address] CT BRAIN WO [...] Todd MD on 06/26/2023 2:19 AM Normal [facility] ETHANOLon 06-26-2023 Ethanol [Mass/Vol] mg/dL Normal 0.00-0.08 [facility] Comment on above: Result Comment: This report is intended for use in clinical monitoring or management of patients. Performed By: #### C BCA, PINR, 60103-2, BMP, 3040-3, 47414-6, 5643-2, LIVR, 66287-3, 69231-1, THYR, 00477-5, 95650-9 #### [facility] ([id number]) [address] [place] [address] 53177 Fibrin D-dimer DDU (PPP) [Ma ss/Vol]on 06-26-2023 D DIMER 220 ng/mL DDU Normal <255 [facility] Comment on above: Result Comment: Results <255 ng/mL DDU: The presence of a VTE can safely be excluded with a negative D-Dimer result and Wells score. A negative result doesn't exclude the possibility of DIC. The test be repeated along with other diagnostic tests if the patient's symptoms persist or worsen. [email or web address] Performed By: #### C BCA, PINR, 16010-2, BMP, 3040-3, 81469-1, 5643-2, LIVR, 74126-4, 52335-8, THYR, 63770-7, 23320-4 #### [facility] ([id number]) [address] [place] [address] 15632 Glucose Glucometer (BldC) [M ass/Vol]on 06-26-2023 Glucose [Mass/Vol] 214 mg/dL High 65-99 [facility] Glucose [Mass/Vol] 159 mg/dL High 65-99 [facility] Glucose [Mass/Vol] 114 mg/dL High 65-99 [facility] LIPASEon 06-26-2023 Lipase [Catalytic activity/Vol] 27 U/L Normal 17-40 [facility] Comment on above: Performed By: #### C BCA, PINR, 21430-3, BMP, 3040-3, 37482-2, 5643-2, LIVR, 39797-4, 12809-4, THYR, 83245-8, 30000-8 #### [facility] ([id number]) [address] [place] [address] 14673 LIVER PANELon 06-26-2023 Albumin [Mass/Vol] 4.0 g/dL Normal 3.2-5.3 [facility] Comment on above: Performed By: #### C BCA, PINR, 15895-4, BMP, 3040-3, 03348-4, 5643-2, LIVR, 84754-7, 75025-0, THYR, 76195-4, 47104-5 #### [facility] ([id number]) [address] [place] [address] [place] [address] ALP [Catalytic activity/Vol] 46 U/L Normal 39-130 [facility] Comment on above: Performed By: #### C BCA, PINR, 13466-9, BMP, 3040-3, 10905-5, 5643-2, LIVR, 43077-2, 37710-8, THYR, 52661-6, 30204-1 #### [facility] ([id number]) [address] [place] [address] 89491 ALT [Catalytic activity/Vol] 30 U/L Normal 0-40 [facility] Comment on above: Performed By: #### C BCA, PINR, 96214-5, BMP, 3040-3, 49760-0, 5643-2, LIVR, 13449-8, 42873-4, THYR, 84962-4, 13618-3 #### [facility] ([id number]) [address] [place] [address] 83711 AST [Catalytic activity/Vol] 58 U/L High 0-41 [facility] Comment on above: Performed By: #### C BCA, PINR, 43514-5, BMP, 3040-3, 80534-2, 5643-2, LIVR, 77555-4, 36920-6, THYR, 35500-1, 57789-9 #### [facility] ([id number]) [address] [place] [address] 03263 Bilirubin [Mass/Vol] 1.2 mg/dL Normal 0.3-1.2 [facility] Comment on above: Performed By: #### C BCA, PINR, 80074-2, BMP, 3040-3, 28522-1, 5643-2, LIVR, 27748-5, 40678-4, THYR, 07125-9, 19768-6 #### [facility] ([id number]) [address] [place] [address] 20433 Bilirubin.direct [Mass/Vol] 0.2 mg/dL Normal 0.0-0.4 [facility] Comment on above: Performed By: #### C BCA, PINR, 54767-8, BMP, 3040-3, 37888-3, 5643-2, LIVR, 43295-4, 74625-5, THYR, 26519-6, 26683-2 #### [facility] ([id number]) [address] [place] [address] Protein [Mass/Vol] 7.0 g/dL Normal 6.0-8.0 [facility] Comment on above: Performed By: #### C BCA, PINR, 93480-1, BMP, 3040-3, 81825-7, 5643-2, LIVR, 01488-5, 75055-6, THYR, 08338-5, 79076-4 #### [facility] ([id number]) [address] [place] [address] 39497 Lactate (P zane) [Moles/Vol]o n 06-26-2023 LACTATE W/REFLEX 1.3 mmol/L Normal 0.4-2.0 [facility] Comment on above: Result Comment: Result did not trigger repeat Lactate, re-order if needed. Performed By: #### C BCA, PINR, 67324-1, BMP, 3040-3, 55693-6, 5643-2, LIVR, 65654-7, 90570-8, THYR, 22818-3, 53486-3 #### [facility] ([id number]) [address] [place] [address] MAGNESIUMon 06-26-2023 Magnesium [Mass/Vol] 1.7 mg/dL Low 1.8-2.6 [facility] Comment on above: Performed By: #### C BCA, PINR, 01974-4, BMP, 3040-3, 00692-5, 5643-2, LIVR, 79465-6, 04181-9, THYR, 15617-1, 59536-7 #### [facility] ([id number]) [address] [place] [address] 20466 Natriuretic peptide B [Mass/ Vol]on 06-26-2023 Natriuretic peptide B (Bld) [Mass/Vol] 142 pg/mL High <100.0 [facility] Comment on above: Performed By: #### C BCA, PINR, 82636-6, BMP, 3040-3, 88132-8, 5643-2, LIVR, 61526-8, 76210-0, THYR, 91866-1, 48900-8 #### [facility] ([id number]) [address] [place] [address] 69608 POTASSIUMon 06-26-2023 Potassium [Moles/Vol] 3.7 mmol/L Normal 3.5-5.0 [facility] Comment on above: Performed By: #### C BCA, PINR, 98164-2, BMP, 3040-3, 27533-9, 5643-2, LIVR, 88637-9, 80402-6, THYR, 81771-0, 16319-4 #### [facility] ([id number]) [address] [place] [address] 71019 PROTIME AND INRon 06-26-2023 INR Coag (PPP) [Relative time] 1.2 {INR} High 0.8-1.1 [facility] Comment on above: Performed By: #### C BCA, PINR, 53546-1, BMP, 3040-3, 26782-3, 5643-2, LIVR, 12914-1, 11989-8, THYR, 66081-2, 83734-9 #### [facility] ([id number]) [address] [place] [address] [place] [address] PT Coag (PPP) [Time] 14.0 s High 9.8-13.2 [facility] Comment on above: Result Comment: NEW REFERENCE RANGE Performed By: #### C BCA, PINR, 21170-0, BMP, 3040-3, 94631-8, 5643-2, LIVR, 49857-7, 35081-0, THYR, 01313-8, 51424-0 #### [facility] ([id number]) [address] [place] [address] 18144 Procalcitonin IA [Mass/Vol]o n 06-26-2023 PROCALCITONIN 0.07 ng/mL High <0.05 [facility] Comment on above: Result Comment: NOTE <0.50 ng/mL - Low risk of severe sepsis and/or septic shock. <2.00 ng/mL - Recommend retesting within 6-24 hours. >2.00 ng/mL - High risk of sepsis and/or septic shock. Performed By: #### C BCA, PINR, 06727-0, BMP, 3040-3, 74591-7, 5643-2, LIVR, 06137-4, 50019-8, THYR, 00438-4, 63954-6 #### [facility] ([id number]) [address] [place] [address] 29557 SARS/FLU A+B/RSV by NAAT/Mol ecularon 06-26-2023 SARS/FLU [...] operators who are performing tests using either [employer] or [employer] systems and is limited to laboratories that [...] repeat. Fact Sheet for Healthcare Providers: https://www.fda.gov/m edia/673425/download Fact Sheet for Patients: https://www.fda.gov/m edia/045109/download Normal [facility] Comment on above: Performed By: #### C JENNIFER, PINR, 27280-5, BMP, 3040-3, 07167-3, 5643-2, LIVR, 46301-0, 97952-5, THYR, 77248-2, 71883-1 #### [facility] ([id number]) [address] [place] [address] 17035 THYROID PROFILEon 06-26-2023 Free T4 [Mass/Vol] 0.95 ng/dL Normal 0.61-1.60 [facility] Comment on above: Performed By: #### C BCA, PINR, 02045-5, BMP, 3040-3, 75986-0, 5643-2, LIVR, 14766-5, 04864-8, THYR, 97429-8, 60035-1 #### [facility] ([id number]) [address] [place] [address] 59645 TSH 1.81 uIU/mL Normal 0.49-4.67 [facility] Comment on above: Performed By: #### C BCA, PINR, 61966-4, BMP, 3040-3, 36370-2, 5643-2, LIVR, 79500-3, 44465-2, THYR, 13335-3, 34459-2 #### [facility] ([id number]) [address] [place] [address] 55247 TROPONIN Ion 06-26-2023 Troponin I.cardiac [Mass/Vol] 0.03 ng/mL Normal 0.00-0.04 [facility] Comment on above: Performed By: #### C BCA, PINR, 05840-8, BMP, 3040-3, 16504-0, 5643-2, LIVR, 30963-3, 67234-2, THYR, 86096-5, 26026-7 #### [facility] ([id number]) [address] [place] [address] 54722 URINE CULTUREon 06-26-2023 Bacteria identified Cx Nom (U) CULTURE RESULTS 10-50,000 ORGANISMS/mL NORMAL UROGENITAL POLO Normal [facility] Comment on above: Performed By: #### C BCA, PINR, 38310-8, BMP, 3040-3, 33009-5, 5643-2, LIVR, 00485-7, 36497-7, THYR, 20128-9, 17837-9 #### [facility] ([id number]) [address] [place] [address] 41066 URN MACROSCOPIC NURon 2022 BILIRUBIN TORRES Small Abnormal NEG [facility] Comment on above: Performed By: #### C BCA, PINR, 42894-7, BMP, 3040-3, 56301-3, 5643-2, LIVR, 77033-4, 30438-3, THYR, 65838-6, 38280-9 #### [facility] ([id number]) [address] [place] [address] [place] [address] BLOOD/HGB TORRES Large Abnormal NEG [facility] Comment on above: Performed By: #### C BCA, PINR, 45092-3, BMP, 3040-3, 07295-0, 5643-2, LIVR, 00542-5, 00108-3, THYR, 58726-8, 42596-0 #### [facility] ([id number]) [address] [place] [address] [place] [address] GLUCOSE TORRES 100 mg/dL Abnormal NEG [facility] Comment on above: Performed By: #### C BCA, PINR, 75908-6, BMP, 3040-3, 26263-7, 5643-2, LIVR, 34871-3, 77026-5, THYR, 38062-5, 20547-1 #### [facility] ([id number]) [address] [place] [address] [place] [address] KETONES TORRES 15 mg/dL Abnormal NEG [facility] Comment on above: Performed By: #### C BCA, PINR, 22199-9, BMP, 3040-3, 78273-6, 5643-2, LIVR, 30820-1, 30356-5, THYR, 61748-5, 29349-3 #### [facility] ([id number]) [address] [place] [address] [place] [address] LEUKOCYTE ESTERASE TORRES Negative Normal NEG [facility] Comment on above: Performed By: #### C BCA, PINR, 71044-2, BMP, 3040-3, 38394-9, 5643-2, LIVR, 63902-6, 01315-9, THYR, 18185-1, 81478-0 #### [facility] ([id number]) [address] [place] [address] [place] [address] NITRITE TORRES Negative Normal NEG [facility] Comment on above: Performed By: #### C BCA, PINR, 16904-3, BMP, 3040-3, 88093-3, 5643-2, LIVR, 73663-3, 51795-4, THYR, 10496-5, 54226-2 #### [facility] ([id number]) [address] [place] [address] 19725 PH TORRES 5.5 Normal 5.0-8.5 [facility] Comment on above: Performed By: #### C BCA, PINR, 79931-3, BMP, 3040-3, 29465-0, 5643-2, LIVR, 87542-5, 79090-5, THYR, 72802-9, 24557-1 #### [facility] [facility] ([id number]) [address] [place] [address]201 PROTEIN TORRES 100 mg/dL Abnormal NEG [facility] Comment on above: Performed By: #### C BCA, PINR, 64873-9, BMP, 3040-3, 54647-0, 5643-2, LIVR, 63338-3, 03060-2, THYR, 60275-9, 11746-8 #### [facility] ([id number]) [address] [place] [address] [place] [address] SPECIFIC GRAVITY TORRES >=1.030 Normal 1.003-1.035 [facility] Comment on above: Performed By: #### C BCA, PINR, 07002-6, BMP, 3040-3, 36143-5, 5643-2, LIVR, 91456-4, 55299-9, THYR, 32499-0, 15924-1 #### [facility] ([id number]) [address] [place] [address] 42377 UROBILINOGEN TORRES 0.2 eu/dL Normal <1.1 [facility] Comment on above: Performed By: #### C BCA, PINR, 85410-0, BMP, 3040-3, 50182-2, 5643-2, LIVR, 37871-7, 90732-9, THYR, 72807-7, 76252-4 #### [facility] ([id number]) [address] [place] [address] XR CHEST 2 VWSon 06-26-2023 XR CHEST [...] Todd MD on 06/26/2023 2:13 AM Normal [facility] aPTT Coag (PPP) [Time]on aPTT Coag (Bld) [Time] 36 s Normal 26-37 Pr [facility] Comment on above: Result Comment: NEW REFERENCE RANGE Performed By: #### C BCA, PINR, 86838-6, BMP, 3040-3, 81862-5, 5643-2, LIVR, 50361-5, 22428-6, THYR, 69859-0, 12735-8 #### [facility] ([id number]) [address] [place] [address] lamoTRIgine [Mass/Vol]on LAMOTRIGINE <0.5 Low 1.0-13.0 [facility] Comment on above: Result Comment: NOTE This test was developed and its performance characteristics determined by [facility]'s Eliot JSarah [facility] Pathology and Laboratory Medicine [facility] It has not been cleared or approved by the FDA. -[facility] is regulated under CLIA as qualified to perform high-complexity testing. This test is used for clinical purposes. It should not be regarded as investigational or for research. Test Performed By: [facility] [employer] [address] [place] [address] Plate Molder: Joseph Rankin III, M.D. CLIA #[id number] Performed By: #### C BCA, PINR, 06643-3, BMP, 3040-3, 58100-4, 5643-2, LIVR, 81016-7, 26386-9, THYR, 13989-1, 23513-3 #### [facility] ([id number]) [address] [place] [address], [place] [address] A1C HEMOGLOBINon 05-24-2023 HbA1c (Bld) [Mass fraction] 9.1 % [employer] Other Glucose - FINGER STICKon Glucose [Mass/Vol] 238 mg/dL [employer] Other HbA1c (Bld) [Mass fraction]o n 05-24-2023 A1C HEMOGLOBIN [employer] Other A1C HEMOGLOBINon 02-08-2023 HbA1c (Bld) [Mass fraction] 6.9 % [employer] Other Glucose - FINGER STICKon Glucose [Mass/Vol] 183 mg/dL [employer] Other HbA1c (Bld) [Mass fraction]o n 02-08-2023 A1C HEMOGLOBIN [employer] Other A1C HEMOGLOBINon 10-21-2022 HbA1c (Bld) [Mass fraction] 6.5 % [employer] Other Glucose - FINGER STICKon Glucose [Mass/Vol] 122 mg/dL [employer] Other HbA1c (Bld) [Mass fraction]o n 10-21-2022 A1C HEMOGLOBIN [employer] Other CEA BLDon 07-22-2022 Carcino[employer]ryonic Ag [Mass/Vol] 1.4 ng/mL <=2.9 ng/mL [facility] CBC W Auto Differential pane l (Bld)on 07-21-2022 Basophils (Bld) [#/Vol] 0.04 10*3/uL <0.11 k/uL [facility] Basophils/100 WBC (Bld) 0.4 % C [facility] Differential cell count method Nom (Bld) Auto [facility] Eosinophils (Bld) [#/Vol] 0.27 10*3/uL <0.46 k/uL [facility] Eosinophils/100 WBC (Bld) 3.0 % [facility] Erythrocyte distribution width (RBC) [Ratio] 13.5 % 11.5 - 15.0 % [facility] Hematocrit (Bld) [Volume fraction] 41.5 % 39.0 - 51.0 % [facility] Hemoglobin (Bld) [Mass/Vol] 13.7 g/dL 13.0 - 17.0 g/dL [facility] Immature granulocytes (Bld) [#/Vol] <0.10 k/uL [facility] Immature granulocytes/100 WBC (Bld) 0.2 % [facility] Lymphocytes (Bld) [#/Vol] 1.50 10*3/uL 1.00 - 4.00 k/uL [facility] Lymphocytes/100 WBC (Bld) 16.6 % [facility] MCH (RBC) [Entitic mass] 28.4 pg 26.0 - 34.0 pg [facility] MCHC (RBC) [Mass/Vol] 33.0 g/dL 30.5 - 36.0 g/dL [facility] MCV (RBC) [Entitic vol] 85.9 fL 80.0 - 100.0 fL [facility] Monocytes (Bld) [#/Vol] 0.53 10*3/uL <0.87 k/uL [facility] Monocytes/100 WBC (Bld) 5.9 % C [facility] Neutrophils (Bld) [#/Vol] 6.67 10*3/uL 1.45 - 7.50 k/uL [facility] Neutrophils/100 WBC (Bld) 73.9 % [facility] Nucleated RBC (Bld) [#/Vol] <0.01 k/uL [facility] Nucleated RBC/100 WBC (Bld) [Ratio] 0.0 /100 WBC [facility] Platelet mean volume (Bld) [Entitic vol] 10.1 fL 9.0 - 12.7 fL [facility] Platelets (Bld) [#/Vol] 240 10*3/uL 150 - 400 k/uL [facility] RBC (Bld) [#/Vol] 4.83 10*6/uL 4.20 - 6.0 0 m/uL [facility] WBC (Bld) [#/Vol] 9.03 10*3/uL 3.70 - 11.00 k/uL [facility] Comprehensive metabolic 2000 panelon 07-21-2022 Albumin [Mass/Vol] 4.6 g/dL 3.9 - 4.9 g/dL [facility] ALP [Catalytic activity/Vol] 69 U/L 38 - 113 U/L [facility] ALT [Catalytic activity/Vol] 33 U/L 10 - 54 U/L [facility] Anion gap [Moles/Vol] 11 mmol/L 9 - 18 mmol/L [facility] AST [Catalytic activity/Vol] 26 U/L 14 - 40 U/L [facility] Bilirubin [Mass/Vol] 0.8 mg/dL 0.2 - 1 .3 mg/dL [facility] Calcium [Mass/Vol] 9.6 mg/dL 8.5 - 10. 2 mg/dL [facility] Chloride [Moles/Vol] 99 mmol/L 97 - 10 5 mmol/L [facility] CO2 [Moles/Vol] 28 mmol/L 22 - 30 mmol/L [facility] Creatinine [Mass/Vol] 1.27 mg/dL High 0.73 - 1.22 mg/dL [facility] Estimated Glomerular Filtration Rate 60 mL/min/1.73m >=60 mL/min/1.73 m [facility] Glucose [Mass/Vol] 116 mg/dL High 74 - 99 mg/dL [facility] Potassium [Moles/Vol] 3.6 mmol/L Low 3.7 - 5.1 mmol/L [facility] Protein [Mass/Vol] 7.3 g/dL 6.3 - 8.0 g/dL [facility] Sodium [Moles/Vol] 138 mmol/L 136 - 144 mmol/L [facility] Urea nitrogen [Mass/Vol] 22 mg/dL 9 - 24 mg/dL [facility] A1C HEMOGLOBINon 07-20-2022 HbA1c (Bld) [Mass fraction] 6.7 % [employer] Other Glucose - FINGER STICKon Glucose [Mass/Vol] 122 mg/dL [employer] Other HbA1c (Bld) [Mass fraction]o n 07-20-2022 A1C HEMOGLOBIN [employer] Other Glucose Glucometer (BldC) [M ass/Vol]Ordered By: Brandy Banks on 05-11-2022 Glucose [Mass/Vol] 122 mg/dL [facility] Comment on above: Random Glucose Refer ence Range is dependent on time and content of last meal. Glucose of more than 200 mg/dL in a nonstressed, ambulatory subject supports the diagnosis of Diabetes Mellitus. No Panel InformationOrdered By: Brandy Banks on 05-11-2022 Bedside Glucose Comment Glu2: cleaned meter [facility] COVID-19 SOFIAOrdered By: Reyes Banks on 05-07-2022 SARS-CoV+SARS-CoV-2 (COVID-19) Ag IA.rapid Ql (Resp) Negative Negative [facility] Comment on above: This is a duplicate Lucero SARS Antigen (ISAIAS) result to be used for statistical tracking purpose only. No Panel InformationOrdered By: Brandy Banks on 05-07-2022 SARS Antigen (LFIA) [facility] A1C HEMOGLOBINon 03-26-2022 HbA1c (Bld) [Mass fraction] 6.4 % [employer] Other Glucose - FINGER STICKon Glucose [Mass/Vol] 106 mg/dL [employer] Other HbA1c (Bld) [Mass fraction]o n 03-26-2022 A1C HEMOGLOBIN [employer] Other A1C HEMOGLOBINon 08-26-2021 HbA1c (Bld) [Mass fraction] 6.9 % [employer] Other Glucose - FINGER STICKon Glucose [Mass/Vol] 140 mg/dL [employer] Other HbA1c (Bld) [Mass fraction]o n 08-26-2021 A1C HEMOGLOBIN [employer] Other CNPNon 07-23-2021 [facility] Telephone (HEMASA) GAGANDEEP AHN ([id number]) 1950 M Date Time Provider Department 07/23/21 LUL OROPEZA During your visit today, we recorded the following information about you: Lul Oropeza RN 07/23/2021 1:15 PM Signed Received call from Laura at [facility] stating pt's blood was hemolyzed [...] As Directed March 31, 2019 10:06am 03-31-2019 [facility] ([id number]) - busPIRone (BUSPAR) 10 mg tablet Take 10 mg by mouth three times daily. - QUEtiapine (SEROQUEL) 50 mg tablet Take 50 mg by mouth twice daily. - insulin detemir U-100 (LEVEMIR) 100 unit/mL (3 mL) injection pen insulin detemir Insulin Detemir U-100 Active 17 UNIT Subcutaneous Daily March 31, 2019 10:08am 03-31-2019 [facility] ([id number]) - tiotropium (SPIRIVA) 18 mcg inhalation capsule tiotropium Tiotropium Sinclair Active 2 PUFF Inhalation Daily March 31, 2019 10:06am 03-31-2019 [facility] ([id number]) - losartan (COZAAR) 50 mg tablet Take [...] order Admin (more content not included)... Normal [facility] CEAon 07-22-2021 CEA 1.2 ng/mL Normal 0.0-2.9 [facility] Comment on above: Result Comment: Test analyzed by the Fotolog DxI method. Performed By: #### C EA #### [facility] [address] [place], [place] [address] CNOVSPon 07-22-2021 CNOVS Visit (SP) Office (JUANI) GAGANDEEP AHN ([id number]) 1950 M Date Time Provider Department 07/22/21 2:15 PM MOISE RAMOS During your visit today, we [...] As Directed March 31, 2019 10:06am 03-31-2019 [facility] ([id number]) busPIRone (BUSPAR) 10 mg tablet Take 10 mg by mouth three times daily. QUEtiapine (SEROQUEL) 50 mg tablet Take 50 mg by mouth twice daily. insulin detemir U-100 (LEVEMIR) 100 unit/mL (3 mL) injection pen insulin detemir Insulin Detemir U-100 Active 17 UNIT Subcutaneous Daily March 31, 2019 10:08am 03-31-2019 [facility] ([id number]) tiotropium (SPIRIVA) 18 mcg inhalation capsule tiotropium Tiotropium Sinclair Active 2 PUFF Inhalation Daily March 31, 2019 10:06am 03-31-2019 [facility] ([id number]) losartan (COZAAR) 50 mg tablet Take 50 [...] de-access according (more content not included)... Normal [facility] Joaquin 07-22-2021 CNPN Telephone (ANDIEAP) GAGANDEEP AHN ([id number]) 1950 M Date Time Provider Department 07/22/21 [facility] During your visit today, we recorded the following information about you: Isabella Lyons 07/22/2021 2:43 PM Signed Patient has been scheduled for follow up w/ Dr. Banks regarding port removal on 08/01/21 @ 10:30 am. Isabella Eloy Allergies As of Date: 07/22/2021 (No Known [...] As Directed March 31, 2019 10:06am 03-31-2019 [facility] ([id number]) - busPIRone (BUSPAR) 10 mg tablet Take 10 mg by mouth three times daily. - QUEtiapine (SEROQUEL) 50 mg tablet Take 50 mg by mouth twice daily. - insulin detemir U-100 (LEVEMIR) 100 unit/mL (3 mL) injection pen insulin detemir Insulin Detemir U-100 Active 17 UNIT Subcutaneous Daily March 31, 2019 10:08am 03-31-2019 [facility] ([id number]) - tiotropium (SPIRIVA) 18 mcg inhalation capsule tiotropium Tiotropium Sinclair Active 2 PUFF Inhalation Daily March 31, 2019 10:06am 03-31-2019 [facility] ([id number]) - losartan (COZAAR) 50 mg tablet Take [...] intravenously, once (more content not included)... Normal [facility] Comp Metabolic Panelon 07-22 Albumin [Mass/Vol] 4.3 g/dL Normal 3.9-4.9 [facility] Comment on above: Performed By: #### C MP #### [facility] [address] [place], [place] [address] ALP [Catalytic activity/Vol] 43 U/L Normal 38-113 [facility] Comment on above: Performed By: #### C MP #### [facility] [address] [place], [place] [address] ALT [Catalytic activity/Vol] 25 U/L Normal 10-54 [facility] Comment on above: Result Comment: Resu lts may be falsely increased due to interference by hemolysis. Suggest reorder as clinically indicated. Performed By: #### C MP #### [facility] [address] [place], [place] [address] Anion Gap Duplicate request Normal 9-18 [facility] Comment on above: Result Comment: Acco unt Credited DUPLICATE ORDER [id number] Performed By: #### C MP #### [facility] [address] [place], [place] [address] AST Unable to assay. Specimen hemolyzed. Normal 14-40 [facility] Comment on above: Performed By: #### C MP #### [facility] [address] [place], [place] [address] Bilirubin [Mass/Vol] 0.7 mg/dL Normal 0.2-1.3 [facility] Comment on above: Performed By: #### C MP #### [facility] [address] [place], [place] [address] Calcium [Mass/Vol] 9.7 mg/dL Normal 8.5-10.2 [facility] Comment on above: Performed By: #### C MP #### [facility] [address] [place], [place] [address] Chloride Duplicate request Normal 97-105 [facility] Comment on above: Result Comment: Acco unt Credited DUPLICATE ORDER MW [id number] Performed By: #### C MP #### [facility] [address] [place], [place] [address] CO2 [Moles/Vol] 27 mmol/L Normal 22-30 [facility] Comment on above: Performed By: #### C MP #### [facility] [address] [place], [place] [address] Creatinine [Mass/Vol] 0.87 mg/dL Normal 0.73-1.22 [facility] Comment on above: Performed By: #### C MP #### [facility] [address] [place] [id number] eGFR- Amer. >60 Normal [facility] Comment on above: Performed By: #### C MP #### [facility] [address] [place] [address] eGFR-All Other Races >60 Normal [facility] Comment on above: Result Comment: eGFR [...] [email or web address]. Performed By: #### C MP #### [facility] [address] [place] [address] Glucose [Mass/Vol] 83 mg/dL Normal 74-99 [facility] Comment on above: Result Comment: The [place] Diabetes Association (ADA) provides guidance for cutoff [...] Standards of Medical Care in Diabetes 2016, [place] [employer]. Diabetes Care. 2016.39(Suppl 1). Performed By: #### C MP #### [facility] [address] [place], [place] [address] Potassium Duplicate request Normal 3.7-5.1 [facility] Comment on above: Result Comment: Acco unt Credited DUPLICATE ORDER MW [id number] Performed By: #### C MP #### [facility] [address] [place], [place] [address] Protein [Mass/Vol] 7.0 g/dL Normal 6.3-8.0 [facility] Comment on above: Performed By: #### C MP #### [facility] [address] [place], [place] [address] Sodium Duplicate request Normal 136-144 [facility] Comment on above: Result Comment: Acco unt Credited DUPLICATE ORDER MW [id number] Performed By: #### C MP #### [facility] [address] [place], [place] [address] Urea nitrogen [Mass/Vol] 27 mg/dL High 9-24 [facility] Comment on above: Performed By: #### C MP #### [facility] [address] [place], [place] [address] Albumin [Mass/Vol] 4.1 g/dL Normal 3.9-4.9 [facility] Comment on above: Performed By: #### C MP #### [facility] [address] [place], [place] [address] ALP [Catalytic activity/Vol] 44 U/L Normal 38-113 [facility] Comment on above: Performed By: #### C MP #### [facility] [address] [place], [place] [address] ALT [Catalytic activity/Vol] 27 U/L Normal 10-54 [facility] Comment on above: Result Comment: Resu lts may be falsely increased due to interference by hemolysis. Suggest reorder as clinically indicated. Performed By: #### C MP #### [facility] [address] [place], [place] [address] Anion gap [Moles/Vol] 16 mmol/L Normal 9-18 [facility] Comment on above: Performed By: #### C MP #### [facility] [address] [place], [place] [address] AST [Catalytic activity/Vol] 41 U/L High 14-40 [facility] Comment on above: Result Comment: Resu lts may be falsely increased due to interference by hemolysis. Suggest reorder as clinically indicated. Performed By: #### C MP #### [facility] [address] [place], [place] [address] Bilirubin [Mass/Vol] 0.6 mg/dL Normal 0.2-1.3 [facility] Comment on above: Performed By: #### C MP #### [facility] [address] [place], [place] [address] Calcium [Mass/Vol] 10.0 mg/dL Normal 8.5-10.2 [facility] Comment on above: Performed By: #### C MP #### [facility] [address] [place], [place] [address] Chloride [Moles/Vol] 103 mmol/L Normal 97-105 [facility] Comment on above: Performed By: #### C MP #### [facility] [address], [place] [address] CO2 [Moles/Vol] 22 mmol/L Normal 22-30 [facility] Comment on above: Performed By: #### C MP #### [facility] [address] [place], [place] [address] Creatinine [Mass/Vol] 0.85 mg/dL Normal 0.73-1.22 [facility] Comment on above: Performed By: #### C MP #### [facility] [address] [place], [place] [id number] eGFR- Amer. >60 Normal [facility] Comment on above: Performed By: #### C MP #### [facility] [address] [place], [place] [id number] eGFR-All Other Races >60 Normal [facility] Comment on above: Result Comment: eGFR [...] [email or web address]. Performed By: #### C MP #### [facility] [address] [place], [place] [id number] Glucose [Mass/Vol] 67 mg/dL Low 74-99 [facility] Comment on above: Result Comment: The [place] Diabetes Association (ADA) provides guidance for cutoff [...] Standards of Medical Care in Diabetes 2016, [place] [employer]. Diabetes Care. 2016.39(Suppl 1). Performed By: #### C MP #### [facility] [address] [place], [place] [address] Potassium Unable to assay due to interference from hemolysis. Suggest reorder as clinically indicated. Normal 3.7-5.1 [facility] Comment on above: Performed By: #### C MP #### [facility] [address] [place], [place] [address] Protein [Mass/Vol] 7.1 g/dL Normal 6.3-8.0 [facility] Comment on above: Performed By: #### C MP #### [facility] [address] [place], [place] [address] Sodium [Moles/Vol] 141 mmol/L Normal 136-144 [facility] Comment on above: Performed By: #### C MP #### [facility] [address] [place], [place] [address] Urea nitrogen [Mass/Vol] 26 mg/dL High 9-24 [facility] Comment on above: Performed By: #### C MP #### [facility] [address] [place], [place] [address] Remote CBCDIF (for [facility] use o nly)on 07-22-2021 Abs Baso 0.05 k/uL Normal <0.11 [facility] Abs Shoshone 0.68 k/uL Normal <0.87 [facility] Abs Neut 6.20 k/uL Normal 1.45-7.50 [facility] Absolute nRBC <0.01 Normal <0.01 [facility] Basophils/100 WBC (Bld) 0.5 % Normal [facility] [place] [facility] DTYPE Auto Diff Normal [facility] Eosinophils (Bld) [#/Vol] 0.29 10*3/uL Normal <0.46 [facility] Eosinophils/100 WBC (Bld) 3.2 % Normal [facility] Erythrocyte distribution width (RBC) [Ratio] 14.0 % Normal 11.5-15.0 [facility] Hematocrit (Bld) [Volume fraction] 41.3 % Normal 39.0-51.0 [facility] Hemoglobin (Bld) [Mass/Vol] 13.5 g/dL Normal 13.0-17.0 [facility] Lymphocytes (Bld) [#/Vol] 1.95 10*3/uL Normal 1.00-4.00 [facility] Lymphocytes/100 WBC (Bld) 21.3 % Normal [facility] MCH 27.8 pG Normal 26.0-34.0 [facility] MCHC (RBC) [Mass/Vol] 32.7 g/dL Normal 30.5-36.0 [facility] MCV (RBC) [Entitic vol] 85.2 fL Normal 80.0-100.0 [facility] [place] [facility] Monocytes/100 WBC (Bld) 7.4 % Normal [facility] [place] [facility] Neutrophils/100 WBC (Bld) 67.6 % Normal [facility] NRBCs 0.0 /100 WBC Normal 0 [facility] Platelet mean volume (Bld) [Entitic vol] 11.3 fL Normal 9.0-12.7 [facility] Platelets (Bld) [#/Vol] 229 10*3/uL Normal 150-400 [facility] RBC (Bld) [#/Vol] 4.85 10*6/uL Normal 4.20-6.00 [facility] WBC (Bld) [#/Vol] 9.17 10*3/uL Normal 3.70-11.00 [facility] A1C HEMOGLOBINon 07-14-2021 HbA1c (Bld) [Mass fraction] 8.5 % [employer] Other Glucose - FINGER STICKon Glucose [Mass/Vol] 275 mg/dL [employer] Other HbA1c (Bld) [Mass fraction]o n 07-14-2021 A1C HEMOGLOBIN [employer] Other CBC and Differentialon 01-07 Abs Baso 0.04 k/uL Normal <0.11 [facility] Abs Shoshone 0.62 k/uL Normal <0.87 [facility] Abs Neut 5.03 k/uL Normal 1.45-7.50 [facility] Absolute nRBC <0.01 Normal <0.01 [facility] Basophils/100 WBC (Bld) 0.5 % Normal [facility] [place] [facility] DTYPE Auto Diff Normal [facility] Eosinophils (Bld) [#/Vol] 0.54 10*3/uL High <0.46 [facility] Eosinophils/100 WBC (Bld) 6.7 % Normal [facility] Erythrocyte distribution width (RBC) [Ratio] 14.4 % Normal 11.5-15.0 [facility] Hematocrit (Bld) [Volume fraction] 39.2 % Normal 39.0-51.0 [facility] Hemoglobin (Bld) [Mass/Vol] 13.0 g/dL Normal 13.0-17.0 [facility] Lymphocytes (Bld) [#/Vol] 1.78 10*3/uL Normal 1.00-4.00 [facility] Lymphocytes/100 WBC (Bld) 22.2 % Normal [facility] MCH 27.4 pG Normal 26.0-34.0 [facility] MCHC (RBC) [Mass/Vol] 33.2 g/dL Normal 30.5-36.0 [facility] MCV (RBC) [Entitic vol] 82.7 fL Normal 80.0-100.0 [facility] [place] [facility] Monocytes/100 WBC (Bld) 7.7 % Normal [facility] [place] [facility] Neutrophils/100 WBC (Bld) 62.9 % Normal [facility] NRBCs 0.0 /100 WBC Normal 0 [facility] Platelet mean volume (Bld) [Entitic vol] 10.3 fL Normal 9.0-12.7 [facility] Platelets (Bld) [#/Vol] 248 10*3/uL Normal 150-400 [facility] RBC (Bld) [#/Vol] 4.74 10*6/uL Normal 4.20-6.00 [facility] WBC (Bld) [#/Vol] 8.03 10*3/uL Normal 3.70-11.00 [facility] CEAon 01-07-2021 CEA 1.9 ng/mL Normal 0.0-2.9 [facility] Comment on above: Result Comment: Test analyzed by the Fotolog DxI method. Performed By: #### C BRENT #### [facility] [address] [place], [place] [address] CNOVSPon 01-07-2021 CNOVSP Visit (SP) Office (HEMASA) GAGANDEEP AHN ([id number]) 1950 M Date Time Provider Department 01/07/21 [...] As Directed March 31, 2019 10:06am 03-31-2019 [facility] ([id number]) busPIRone (BUSPAR) 10 mg tablet Take 10 mg by mouth three times daily. QUEtiapine (SEROQUEL) 50 mg tablet Take 50 mg by mouth twice daily. insulin detemir U-100 (LEVEMIR) 100 unit/mL (3 mL) injection pen insulin detemir Insulin Detemir U-100 Active 17 UNIT Subcutaneous Daily March 31, 2019 10:08am 03-31-2019 [facility] ([id number]) tiotropium (SPIRIVA) 18 mcg inhalation capsule tiotropium Tiotropium Sinclair Active 2 PUFF Inhalation Daily March 31, 2019 10:06am 03-31-2019 [facility] ([id number]) losartan (COZAAR) 50 mg tablet Take 50 [...] ABD/PEL-Inject, intr (more content not included)... Normal [facility] Comp Metabolic Panelon 01-07 Albumin [Mass/Vol] 4.1 g/dL Normal 3.9-4.9 [facility] ALP [Catalytic activity/Vol] 61 U/L Normal 38-113 [facility] ALT [Catalytic activity/Vol] 25 U/L Normal 10-54 [facility] Anion gap [Moles/Vol] 12 mmol/L Normal 9-18 [facility] AST [Catalytic activity/Vol] 21 U/L Normal 14-40 [facility] Bilirubin [Mass/Vol] 0.6 mg/dL Normal 0.2-1.3 [facility] Calcium [Mass/Vol] 9.6 mg/dL Normal 8.5-10.2 [facility] Chloride [Moles/Vol] 100 mmol/L Normal 97-105 [facility] CO2 [Moles/Vol] 25 mmol/L Normal 22-30 [facility] Creatinine [Mass/Vol] 0.81 mg/dL Normal 0.73-1.22 [facility] eGFR- Amer. >60 Normal [facility] eGFR-All Other Races >60 Normal [facility] Comment on above: Result Comment: eGFR [...] GFR. Glucose [Mass/Vol] 309 mg/dL High 74-99 [facility] Comment on above: Result Comment: The [place] [employer] Association (ADA) provides guidance for cutoff [...] Standards of Medical Care in Diabetes 2016, [place] [employer]. Diabetes Care. 2016.39(Suppl 1). Potassium [Moles/Vol] 3.8 mmol/L Normal 3.7-5.1 [facility] Protein [Mass/Vol] 7.0 g/dL Normal 6.3-8.0 [facility] Sodium [Moles/Vol] 137 mmol/L Normal 136-144 [facility] Urea nitrogen [Mass/Vol] 16 mg/dL Normal 9-24 [facility] CNPNon 12-31-2020 CNPN Telephone (JUANI) ELENAGAGANDEEP ([id number]) 1950 M Date Time Provider Department 12/31/20 MOISE RAMOS During your visit today, we recorded the following information about you: Ellie Dow 12/31/2020 10:32 AM Signed Please sign pending lab orders for Wednesday01/07/21. 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 - QUEtiapine (SEROQUEL) 50 mg tablet Take 50 mg by mouth twice daily. - insulin detemir U-100 (LEVEMIR) 100 unit/mL (3 mL) injection pen insulin detemir Insulin Detemir U-100 Active 17 UNIT Subcutaneous Daily March 31, 2019 10:08am 03-31-2019 [facility] ([id number]) - tiotropium (SPIRIVA) 18 mcg inhalation capsule tiotropium Tiotropium Sinclair Active 2 PUFF Inhalation Daily March 31, 2019 10:06am 03-31-2019 [facility] ([id number]) - losartan (COZAAR) 50 mg tablet Take [...] Rectal, E (more content not included)... Normal [facility] Vital Signs Date Time Vital Sign Value Performing Clinician Facility 10-07-2023 09:53-0400 Body height 175.26 cm BRAND SALES MANAGERMj Funes Work Phone: [facility] 10-07-2023 09:53-0400 Body mass index (BMI) [Ratio] 22.7 kg/m2 BRAND SALES MANAGERMj Funes Work Phone: [facility] 10-07-2023 09:53-0400 Body temperature 97.9 [degF] IAIN Funes Work Phone: [facility] 10-07-2023 09:53-0400 Body weight 69.85 kg IAIN Funes Work Phone: [facility] 10-07-2023 09:53-0400 Diastolic blood pressure 62 mm[Hg] BRAND SALES MANAGER Kota Anglim Work Phone: [facility] 10-07-2023 09:53-0400 Heart rate 77 /min BRAND SALES MANAGER Kota Anglim Work Phone: [facility] 10-07-2023 09:53-0400 Respiratory rate 16 /min BRAND SALES MANAGERMj Aguirre Anglim Work Phone: [facility] 10-07-2023 09:53-0400 SaO2% (BldA) [Mass fraction] 98 % BRAND SALES MANAGERMj Aguirre Anglim Work Phone: [facility] 10-07-2023 09:53-0400 Systolic blood pressure 102 mm[Hg] BRAND SALES MANAGER Kota Anglim Work Phone: [facility] 09-30-2023 11:15-0400 Body height 175.26 cm BRAND SALES MANAGERMj Aldrichlim Work Phone: [facility] 09-30-2023 11:15-0400 Body mass index (BMI) [Ratio] 22.7 kg/m2 BRAND SALES MANAGERMj Aldrichlim Work Phone: [facility] 09-30-2023 11:15-0400 Body weight 69.85 kg BRAND SALES MANAGERMj Aguirre Anglim Work Phone: [facility] 09-30-2023 10:25-0400 Body temperature 97.3 [degF] BRAND SALES MANAGERMj Aldrichlim Work Phone: [facility] 09-30-2023 10:25-0400 Diastolic blood pressure 81 mm[Hg] BRAND SALES MANAGER Kota Anglim Work Phone: [facility] 09-30-2023 10:25-0400 Heart rate 74 /min BRAND SALES MANAGER Kota Anglim Work Phone: [facility] 09-30-2023 10:25-0400 Respiratory rate 18 /min BRAND SALES MANAGER Kota Anglim Work Phone: [facility] 09-30-2023 10:25-0400 Systolic blood pressure 152 mm[Hg] BRAND SALES MANAGERMj Funes Work Phone: [facility] 09-28-2023 15:15-0400 Body height 170.2 cm Jo Veronica MD Work Phone: [facility] 09-28-2023 15:15-0400 Body mass index (BMI) [Ratio] 25.84 kg/m2 Jo Veronica MD Work Phone: [facility] 09-28-2023 15:15-0400 Body weight 74.84 kg Jo Veronica MD Work Phone: [facility] 09-28-2023 15:15-0400 Diastolic blood pressure 72 mm[Hg] Jo Veronica MD Work Phone: [facility] 09-28-2023 15:15-0400 Heart rate 77 /min Jo Veronica MD Work Phone: [facility] 09-28-2023 15:15-0400 Systolic blood pressure 128 mm[Hg] Jo Veronica MD Work Phone: [facility] 09-13-2023 15:00-0400 Diastolic blood pressure 75 mm[Hg] IAIN Funes Work Phone: [facility] 09-13-2023 15:00-0400 Heart rate 71 /min BRAND SALES MANAGERMj Funes Work Phone: [facility] 09-13-2023 15:00-0400 Respiratory rate 16 /min BRAND SALES MANAGERMj Funes Work Phone: [facility] 09-13-2023 15:00-0400 SaO2% (BldA) [Mass fraction] 96 % BRAND SALES MANAGERMj Funes Work Phone: [facility] 09-13-2023 15:00-0400 Systolic blood pressure 140 mm[Hg] BRAND SALES MANAGERMj Funes Work Phone: [facility] 09-13-2023 11:40-0400 Inhaled oxygen flow rate 2 L/min BRAND SALES MANAGERMj Funes Work Phone: [facility] 09-13-2023 10:39-0400 Body height 175.26 cm BRAND SALES MANAGERMj Funes Work Phone: [facility] 09-13-2023 10:39-0400 Body weight 69.85 kg BRAND SALES MANAGERMj Funes Work Phone: [facility] 09-09-2023 11:35-0400 Body height 175.26 cm BRAND SALES MANAGER Kota Funes Work Phone: [facility] 09-09-2023 11:35-0400 Body mass index (BMI) [Ratio] 22.7 kg/m2 BRAND SALES MANAGERMj Funes Work Phone: [facility] 09-09-2023 11:35-0400 Body temperature 97.4 [degF] BRAND SALES MANAGERMj Funes Work Phone: [facility] 09-09-2023 11:35-0400 Body weight 69.85 kg BRAND SALES MANAGERMj Funes Work Phone: [facility] 09-09-2023 11:35-0400 Diastolic blood pressure 50 mm[Hg] BRAND SALES MANAGERMj Funes Work Phone: [facility] 09-09-2023 11:35-0400 Heart rate 73 /min BRAND SALES MANAGERMj Funes Work Phone: [facility] 09-09-2023 11:35-0400 SaO2% (BldA) [Mass fraction] 98 % BRAND SALES MANAGERMj Funes Work Phone: [facility] 09-09-2023 11:35-0400 Systolic blood pressure 100 mm[Hg] BRAND SALES MANAGERMj Funes Work Phone: [facility] 09-09-2023 08:46-0400 Body height 175.26 cm BRAND SALES MANAGER Kota Funes Work Phone: [facility] 09-09-2023 08:46-0400 Body mass index (BMI) [Ratio] 22.7 kg/m2 BRAND SALES MANAGER Kota Anglim Work Phone: [facility] 09-09-2023 08:46-0400 Body weight 69.85 kg BRAND SALES MANAGER Kota Anglim Work Phone: [facility] 09-09-2023 08:31-0400 Body temperature 97.5 [degF] BRAND SALES MANAGER Kota Anglim Work Phone: [facility] 09-09-2023 08:31-0400 Diastolic blood pressure 69 mm[Hg] BRAND SALES MANAGER Kota Anglim Work Phone: [facility] 09-09-2023 08:31-0400 Heart rate 64 /min BRAND SALES MANAGER Kota Anglim Work Phone: [facility] 09-09-2023 08:31-0400 Respiratory rate 18 /min BRAND SALES MANAGER Kota Anglim Work Phone: [facility] 09-09-2023 08:31-0400 Systolic blood pressure 115 mm[Hg] BRAND SALES MANAGER Kota Anglim Work Phone: [facility] 08-28-2023 16:09-0500 Diastolic blood pressure 85 mm[Hg] BRAND SALES MANAGER Kota Anglim Work Phone: [facility] 08-28-2023 16:09-0500 Heart rate 70 /min BRAND SALES MANAGER Kota Anglim Work Phone: [facility] 08-28-2023 16:09-0500 Respiratory rate 20 /min BRAND SALES MANAGER Kota Anglim Work Phone: [facility] 08-28-2023 16:09-0500 SaO2% (BldA) [Mass fraction] 100 % BRAND SALES MANAGER Kota Anglim Work Phone: [facility] 08-28-2023 16:09-0500 Systolic blood pressure 185 mm[Hg] BRAND SALES MANAGER Kota Anglim Work Phone: [facility] 08-28-2023 14:29-0500 Body height 175.26 cm IAIN Funes Work Phone: [facility] 08-28-2023 14:29-0500 Body temperature 97.6 [degF] IAIN Funes Work Phone: [facility] 08-28-2023 14:29-0500 Body weight 69.85 kg BRAND SALES MANAGERMj Funes Work Phone: [facility] 05-24-2023 14:00-0500 Body height 170.18 cm Tondra Mapus Other [facility] 05-24-2023 14:00-0500 Body mass index (BMI) [Ratio] 27.56 kg/m2 Tondra Mapus Other [employer] [facility] [employer] Other 05-24-2023 14:00-0500 Body weight 79.83 kg Tondra Mapus Other [facility] 05-24-2023 14:00-0500 Diastolic blood pressure 84 mm[Hg] Tondra Mapus Other [facility] 05-24-2023 14:00-0500 Respiratory rate 18 /min Tondra Mapus Other [employer] Other 05-24-2023 14:00-0500 SaO2% (BldA) [Mass fraction] 100 % Tondra Mapus Other [employer] Other 05-24-2023 14:00-0500 Systolic blood pressure 148 mm[Hg] Tondra Mapus Other [facility] 02-08-2023 14:30-0400 Body height 170.18 cm Tondra Mapus Other [employer] Other 02-08-2023 14:30-0400 Body mass index (BMI) [Ratio] 27.33 kg/m2 Tondra Mapus Other [employer] Other 02-08-2023 14:30-0400 Body weight 79.15 kg Tondra Mapus Other [employer] Other 02-08-2023 14:30-0400 Diastolic blood pressure 92 mm[Hg] Tondra Mapus Other [employer] Other 02-08-2023 14:30-0400 Respiratory rate 18 /min Tondra Mapus Other [employer] Other 02-08-2023 14:30-0400 SaO2% (BldA) [Mass fraction] 98 % Tondra Mapus Other [employer] Other 02-08-2023 14:30-0400 Systolic blood pressure 172 mm[Hg] Tondra Mapus Other [employer] Other 10-21-2022 15:15-0400 Body height 170.18 cm Tondra Mapus Other [employer] Other 10-21-2022 15:15-0400 Body mass index (BMI) [Ratio] 26.89 kg/m2 Tondra Mapus Other [employer] Other 10-21-2022 15:15-0400 Body weight 77.88 kg Tondra Mapus Other [employer] Other 10-21-2022 15:15-0400 Diastolic blood pressure 92 mm[Hg] Tondra Mapus Other [employer] Other 10-21-2022 15:15-0400 Respiratory rate 18 /min Tondra Mapus Other [employer] Other 10-21-2022 15:15-0400 SaO2% (BldA) [Mass fraction] 97 % Tondra Mapus Other [employer] Other 10-21-2022 15:15-0400 Systolic blood pressure 161 mm[Hg] Tondra Mapus Other [employer] Other 07-21-2022 13:42-0500 Body height 176.5 cm Moise Ramos MD Work Phone: [facility] 07-21-2022 13:42-0500 Body temperature 97.59 [degF] Moise Ramos MD Work Phone: [facility] 07-21-2022 13:42-0500 Body weight 76.11 kg Moise Ramos MD Work Phone: [facility] 07-21-2022 13:42-0500 Diastolic blood pressure 64 mm[Hg] Moise Ramos MD Work Phone: [facility] 07-21-2022 13:42-0500 Heart rate 58 /min Moise Ramos MD Work Phone: [facility] 07-21-2022 13:42-0500 Respiratory rate 18 /min Moise Ramos MD Work Phone: [facility] 07-21-2022 13:42-0500 SaO2% (BldA) [Mass fraction] 97 % Moise Ramos MD Work Phone: [facility] 07-21-2022 13:42-0500 Systolic blood pressure 107 mm[Hg] Moise Ramos MD Work Phone: [facility] 07-20-2022 14:00-0500 Body height 170.18 cm Tondra Mapus Other [employer] Other 07-20-2022 14:00-0500 Body mass index (BMI) [Ratio] 26.39 kg/m2 Tondra Mapus Other [employer] Other 07-20-2022 14:00-0500 Body weight 76.43 kg Tondra Mapus Other [employer] Other 07-20-2022 14:00-0500 Diastolic blood pressure 77 mm[Hg] Tondra Mapus Other [employer] Other 07-20-2022 14:00-0500 Respiratory rate 18 /min Tondra Mapus Other [employer] Other 07-20-2022 14:00-0500 SaO2% (BldA) [Mass fraction] 97 % Tondra Mapus Other [employer] Other 07-20-2022 14:00-0500 Systolic blood pressure 147 mm[Hg] Tondra Mapus Other [employer] Other 05-11-2022 14:13-0500 Diastolic blood pressure 82 mm[Hg] BRAND SALES MANAGER Kota Valdemarlim Work Phone: [facility] 05-11-2022 14:13-0500 Heart rate 57 /min BRAND SALES MANAGER Kota Anglim Work Phone: [facility] 05-11-2022 14:13-0500 Respiratory rate 16 /min BRAND SALES MANAGER Kota Anglim Work Phone: [facility] 05-11-2022 14:13-0500 SaO2% (BldA) [Mass fraction] 96 % BRAND SALES MANAGER Kota Anglim Work Phone: [facility] 05-11-2022 14:13-0500 Systolic blood pressure 147 mm[Hg] IAIN Funes Work Phone: [facility] 05-11-2022 13:28-0500 Inhaled oxygen flow rate 8 L/min IAIN Funes Work Phone: [facility] 05-11-2022 13:04-0500 Body height 175.26 cm BRAND SALES MANAGERMj Funes Work Phone: [facility] 05-11-2022 13:04-0500 Body mass index (BMI) [Ratio] 24.8 kg/m2 BRAND SALES MANAGERMj Funes Work Phone: [facility] 05-11-2022 13:04-0500 Body weight 76.3 kg BRAND SALES MANAGERMj Funes Work Phone: [facility] 05-11-2022 11:08-0500 Body temperature 97.5 [degF] IAIN Funes Work Phone: [facility] 03-26-2022 15:15-0400 Body height 170.18 cm Tondra Mapus Other [employer] Other 03-26-2022 15:15-0400 Body mass index (BMI) [Ratio] 27.25 kg/m2 Tondra Mapus Other [employer] Other 03-26-2022 15:15-0400 Body weight 78.93 kg Tondra Mapus Other [employer] Other 03-26-2022 15:15-0400 Diastolic blood pressure 67 mm[Hg] Tondra Mapus Other [employer] Other 03-26-2022 15:15-0400 Respiratory rate 18 /min Tondra Mapus Other [employer] Other 03-26-2022 15:15-0400 SaO2% (BldA) [Mass fraction] 99 % Tondra Mapus Other [employer] Other 03-26-2022 15:15-0400 Systolic blood pressure 111 mm[Hg] Tondra Mapus Other [employer] Other 08-26-2021 10:15-0500 Body height 170.18 cm Tondra Mapus Other [employer] Other 08-26-2021 10:15-0500 Body mass index (BMI) [Ratio] 28.5 kg/m2 Tondra Mapus Other [employer] Other 08-26-2021 10:15-0500 Body weight 82.56 kg Tondra Mapus Other [employer] Other 08-26-2021 10:15-0500 Diastolic blood pressure 78 mm[Hg] Tondra Mapus Other [employer] Other 08-26-2021 10:15-0500 Respiratory rate 16 /min Tondra Mapus Other [employer] Other 08-26-2021 10:15-0500 SaO2% (BldA) [Mass fraction] 99 % Tondra Mapus Other [employer] Other 08-26-2021 10:15-0500 Systolic blood pressure 125 mm[Hg] Tondra Mapus Other [employer] Other 07-28-2021 12:00-0500 Body height 170.18 cm Tondra Mapus Other [employer] Other 07-28-2021 12:00-0500 Body mass index (BMI) [Ratio] 30.44 kg/m2 Tondra Mapus Other [employer] Other 07-28-2021 12:00-0500 Body weight 88.18 kg Tondra Mapus Other [employer] Other 07-28-2021 12:00-0500 Diastolic blood pressure 74 mm[Hg] Tondra Mapus Other [employer] Other 07-28-2021 12:00-0500 Respiratory rate 18 /min Tondra Mapus Other [employer] Other 07-28-2021 12:00-0500 SaO2% (BldA) [Mass fraction] 98 % Tondra Mapus Other [employer] Other 07-28-2021 12:00-0500 Systolic blood pressure 142 mm[Hg] Tondra Mapus Other [employer] Other 07-14-2021 12:00-0500 Body height 170.18 cm Tondra Mapus Other [employer] Other 07-14-2021 12:00-0500 Body mass index (BMI) [Ratio] 29.29 kg/m2 Tondra Mapus Other [employer] Other 07-14-2021 12:00-0500 Body weight 84.82 kg Tondra Mapus Other [employer] Other 07-14-2021 12:00-0500 Diastolic blood pressure 77 mm[Hg] Tondra Mapus Other [employer] Other 07-14-2021 12:00-0500 Respiratory rate 20 /min Tondra Mapus Other [employer] Other 07-14-2021 12:00-0500 SaO2% (BldA) [Mass fraction] 98 % Tondra Mapus Other [employer] Other 07-14-2021 12:00-0500 Systolic blood pressure 132 mm[Hg] Tondra Mapus Other [employer] Other Encounters Encounter Date Encounter Type Care Provider Facility Start: 11-09-2023 End: 11-09-2023 ambulatory JO Goodrich CAROLINA [facility] Start: 11-07-2023 End: 11-07-2023 Emergency department patient visit PIERCE Mac [facility] Start: 11-04-2023 End: 11-05-2023 Emergency department patient visit YUSRA KOENIG [facility] Start: 11-03-2023 End: 11-03-2023 ambulatory VENUS RAMOS [facility] Start: 10-29-2023 End: 10-30-2023 Emergency department patient visit PADMA BLAIR [facility] Start: 10-29-2023 End: 10-29-2023 Emergency department patient visit KOTA Watts [facility] Start: 10-08-2023 End: 10-09-2023 ambulatory KOTA Watts [facility] Start: 10-07-2023 End: 10-07-2023 ambulatory Kota Funes Facility:[facility] Start: 10-07-2023 End: 10-07-2023 ambulatory BRAND SALES MANAGER Kota Funes Work Phone: [facility] Work Phone: Start: 10-07-2023 End: 10-07-2023 Patient encounter procedure BRAND SALES MANAGERMj Funes Work Phone: [facility] Vascular Surgery Work Phone: Start: 09-30-2023 End: 09-30-2023 ambulatory Kota Funes Facility:[facility] Start: 09-30-2023 End: 09-30-2023 ambulatory BRAND SALES MANAGERMj Funes Work Phone: [facility] Work Phone: Start: 09-30-2023 End: 09-30-2023 Discharged Recurring IAIN Funes Work Phone: [facility] [place] Work Phone: Start: 09-30-2023 Registered Recurring BRAND SALES MANAGER Edilberto Funes Work Phone: [facility] [place] Work Phone: Start: 09-28-2023 End: 09-29-[address] [facility] Start: 09-28-2023 End: 09-28-2023 ambulatory [facility] Start: 09-28-2023 End: 09-28-2023 Office consultation new/estab patient 40 min Jo Veronica MD Work Phone: [facility] Comment on above: Urinary retention (P rimary Dx) Start: 09-13-2023 End: 09-13-2023 Emergency department patient visit KOTA Watts [facility] Start: 09-13-2023 End: 09-13-2023 ambulatory Kota Funes Facility:[facility] Start: 09-13-2023 Non-patient / Non-visit IAIN Funes Work Phone: [facility] Vascular Surgery Work Phone: Start: 09-13-2023 End: 09-13-2023 Admission to same day surgery center BRAND SALES MANAGERMj Funes Work Phone: [facility]-Interventional Radiology Work Phone: Start: 09-13-2023 End: 09-13-2023 ambulatory IAIN Funes Work Phone: [facility] Work Phone: Start: 09-09-2023 End: 09-09-2023 ambulatory IAIN Funes Work Phone: [facility] Work Phone: Start: 09-09-2023 End: 09-09-2023 Patient encounter procedure IAIN Funes Work Phone: [facility] V[facility] Work Phone: Start: 09-09-2023 Registered Recurring IAIN Edilberto Funes Work Phone: [facility] [place] Work Phone: Start: 08-28-2023 End: 08-28-2023 Emergency department patient visit Jose Enrique Christopher Almendarez Facility:[facility] Start: 08-28-2023 End: 08-28-2023 Emergency department patient visit IAIN Funes Work Phone: [facility]-Emergency Room Work Phone: Start: 08-26-2023 End: 08-26-2023 ambulatory Kotamac Funes Facility:[facility] Start: 08-26-2023 End: 08-26-2023 Patient encounter procedure IAIN Funes Work Phone: [facility]-Ultrasound [facility] [place] Work Phone: Start: 07-27-2023 Telephone encounter [facility] Comment on above: referral Start: 07-01-2023 End: 07-01-2023 ambulatory AMILCAR [facility] Other Start: 07-01-2023 Telephone encounter [facility] Start: 06-26-2023 End: 06-30-2023 Emergency department patient visit KIRILL MADRID [facility] Start: 06-26-2023 End: 06-30-2023 Evaluation and management of inpatient KOTA Watts [facility] Start: 05-27-2023 End: 05-27-2023 ambulatory UNIQUE SWIFT Not Available Start: 05-24-2023 End: 05-24-2023 Discharged Recurring AIIN Funes Work Phone: [facility] Work Phone: Start: 05-24-2023 (DM) Diabetes Naveena Emiliano [facility] Start: 05-24-2023 End: 05-25-2023 ambulatory IAIN Funes Work Phone: [employer] Other Start: 05-24-2023 End: 05-24-2023 Patient encounter procedure IAIN Funes Work Phone: [facility] Work Phone: Start: 05-18-2023 End: 05-18-2023 ambulatory UNIQUE SWIFT Not Available Start: 03-31-2023 End: 03-31-2023 ambulatory Tondra Mapus Other [employer] Music Other Start: 03-31-2023 Telephone encounter Tondra Mapus [facility] Start: 02-08-2023 (DM) Diabetes Tondra Emiliano [facility] Start: 02-08-2023 End: 02-08-2023 ambulatory Tondra Mapus Other [employer] Other Start: 12-23-2022 End: 12-23-2022 ambulatory Tondra Mapus Other [employer] Other Start: 12-23-2022 Telephone encounter Tondra Mapus [facility] Start: 10-21-2022 (DM) Diabetes Tondra Mapus [facility] Start: 10-21-2022 End: 10-21-2022 ambulatory Tondra Mapus Other [employer] Other Start: 08-30-2022 End: 08-30-2022 ambulatory Tondra Mapus Other [employer] Other Start: 08-30-2022 Telephone encounter Tondra Mapus [facility] Start: 07-21-2022 End: 07-21-2022 ambulatory Moise Ramos MD Work Phone: Hematology/Oncology Comment on above: 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) Start: 07-21-2022 End: 07-21-2022 Patient encounter procedure Moise Ramos MD Work Phone: [place] Start: 07-20-2022 (DM) Diabetes Tondra Mapus [facility] Start: 07-20-2022 End: 07-20-2022 ambulatory Tondra Mapus Other [employer] Other Start: 05-12-2022 End: 05-12-2022 ambulatory Tondra Mapus Other [employer] Other Start: 05-12-2022 Telephone encounter Tondra Mapus [facility] Start: 05-11-2022 End: 05-11-2022 Admission to same day surgery center BRAND SALES MANAGERMj Funes Work Phone: [facility] [place] Start: 05-11-2022 End: 05-11-2022 ambulatory BRAND SALES MANAGER Kota Fuens Work Phone: [facility] Work Phone: Start: 05-07-2022 End: 05-07-2022 ambulatory BRAND SALES MANAGER Kota Funes Work Phone: [facility] Work Phone: Start: 05-07-2022 End: 05-07-2022 Patient encounter procedure IAIN Funes Work Phone: [facility] Start: 04-08-2022 End: 04-08-2022 ambulatory IAIN Funes Work Phone: [facility] Work Phone: Start: 04-08-2022 End: 04-08-2022 Patient encounter procedure IAIN Funes Work Phone: [facility] Start: 03-26-2022 Registered Recurring IAIN Funes Work Phone: [facility] Start: 03-26-2022 (DM) Diabetes Tondra Mapus [facility] Start: 03-26-2022 End: 03-26-2022 ambulatory Tondra Mapus Other [employer] Other Start: 03-09-2022 End: 03-09-2022 ambulatory Tondra Mapus Other [employer] Other Start: 03-09-2022 Telephone encounter Tondra Mapus [facility] Start: 01-29-2022 End: 01-29-2022 ambulatory Tondra Mapus Other [employer] Other Start: 01-29-2022 Telephone encounter Tondra Mapus [facility] Start: 12-09-2021 (Financial Coach) Financial Coach Marcella ruth [facility] Start: 12-09-2021 End: 12-09-2021 ambulatory Marcella Christian Other [employer] Other Start: 11-19-2021 End: 11-19-2021 ambulatory Tondra Mapus Other [employer] Other Start: 11-19-2021 Telephone encounter Tondra Mapus [facility] Start: 09-10-2021 (Financial Coach) Financial Coach Marcella [facility] Start: 09-10-2021 End: 09-10-2021 ambulatory Marcella Christian Other [employer] Other Start: 08-29-2021 End: 08-29-2021 ambulatory Tondra Mapus Other [employer] Other Start: 08-29-2021 Telephone encounter Tondra Mapus [facility] Start: 08-26-2021 (DM) Diabetes [facility] Maryvaledra Emiliano [facility] Start: 08-26-2021 End: 08-26-2021 ambulatory Tondra Mapus Other [employer] Other Start: 08-26-2021 Telephone encounter Tondra Mapus [facility] Start: 08-06-2021 (RD) Crystal Slicer Marcella Christian [facility] Start: 08-06-2021 End: 08-06-2021 ambulatory Marcella Christian Other [employer] Other Start: 08-06-2021 Telephone encounter Janine [facility] Start: 07-28-2021 End: 07-28-2021 ambulatory Tondra Mapus Other [employer] Other Start: 07-28-2021 Nursing evaluation o f patient and report Tondra Mapus [facility] Start: 07-14-2021 End: 07-14-2021 ambulatory Tondra Mapus Other [employer] Other Start: 07-14-2021 [facility] visit new patient Delores Sanchez [facility] Procedures Date Procedure Procedure Detail Performing Clinician Start: 11-03-2023 Follow-up visit Follow-up VENUS RAMOS Start: 10-07-2023 Ankle brachial pressure index BRAND SALES MANAGER Kota Shantel Work Phone: Start: 09-22-2023 Investigation of transfusion reaction IAIN Aguirre Shantel Work Phone: Start: 09-13-2023 IR Angiogram w/TLA/Stent Left Leg (Bilateral) BRAND SALES MANAGERMj Aguirre Shantel Work Phone: Start: 09-13-2023 IR Angiogram w/TLA/Stent Left Leg (Right) IAIN Aldrichreece Work Phone: Start: 08-28-2023 Urine culture IAIN Aguirre Shantel Work Phone: Start: 08-26-2023 Pulse volume recorder pneumoplethysmography IAIN Aguirre Shantel Work Phone: Start: 08-19-2023 Plain X-ray of bilateral calcanei BRAND SALES MANAGERMj Aguirre Shantel Work Phone: Start: 05-11-2022 Colonoscopy BRAND SALES MANAGER Kota Shantel Work Phone: Start: 04-08-2022 Dual energy X-ray absorptiometry IAIN Kota Shantel Work Phone: Start: 01-28-2022 Adult depression screening assessment Marcella Jones H/O: surgery Status post hardware removal IAIN Aguirre Shantel Work Phone: SARS Antigen (LFIA) BRAND SALES MANAGERMj Moffett ra [employer]oofound Work Phone: Plan of Treatment Date Care Activity Detail Author Start: 07-21-2025 DIABETES SCREEN DIABETES SCREEN [facility] Start: 09-27-2024 Adult BMI Screening Adult BMI Screen ing [facility] Start: 09-27-2024 Tobacco Screening Tobacco Screening [facility] Start: 06-29-2024 Adult BMI Screening Adult BMI Screen ing [facility] Start: 06-28-2024 Tobacco Screening Tobacco Screening [facility] Start: 02-27-2024 Influenza vaccination Influenza Vacc ine [facility] Start: 11-03-2023 End: 11-03-2023 Patient encounter procedure 11/03/2023 9:45 AM EDT Office Visit [facility] [address] [place] [address] [phone] Venus Rmaos PA [address] [place] [id number] [facility] Start: 10-08-2023 End: 10-08-2023 ambulatory 10/08/2023 12:30 PM EDT Support Visit [facility] [address] [place] [address] [place] [address] Jesus Garcia Jr., MD [address] [place] [address] [facility] Start: 10-07-2023 Ankle brachial press ure index [facility] Start: 09-13-2023 [facility] Start: 02-26-2023 COVID-19 Vaccine ( season) COVID-19 Vaccine ( season) [facility] Start: 02-26-2023 Influenza vaccination Influenza Vacc ine [facility] Start: 01-28-2023 Depression Screening Depression Scre ening [facility] Start: 06-28-2022 ADVANCE DIRECTIVE DISCUSSION ADVANCE DIRECTIVE DISCUSSION [facility] Start: 06-28-2022 DEPRESSION ASSESSMENT DEPRESSION ASS ESSMENT [facility] Start: 05-11-2022 End: 05-11-2022 [facility] Start: 02-26-2022 Influenza vaccination INFLUENZA (#1) [facility] Start: 06-24-2021 COVID-19 VACCINE (5 - Booster for Pfizer series) COVID-19 VACCINE (5 - Booster for Pfizer series) [facility] Start: 02-19-2021 PNEUMOCOCCAL: 65+ (2 - PCV) PNEUMOCOCCAL: 65+ (2 - PCV) [facility] Start: 2013 Fall Risk Screening Fall Risk Screen ing [facility] Start: 1998 SHINGRIX VACCINE (1 of 2) SHINGRIX VACCINE (1 of 2) [facility] Start: 1993 COLOGUARD (FIT-DNA) COLOGUARD (FIT-D NA) [facility] Start: 1993 Colonoscopy COLONOSCOPY [facility] Start: 1993 COLORECTAL CANCER SCREENING COLORECTAL CANCER SCREENING [facility] Start: [address] COLONOGRAPHY [facility] Start: 1993 FECAL OCCULT BLOOD FECAL OCCULT BLOO D [facility] Start: 1993 SIGMOIDOSCOPY SIGMOIDOSCOPY [facility] Start: 10-28-1983 LIPID SCREEN LIPID SCREEN [facility] Start: 10-28-1967 Administration of varicella zoster vaccine Zoster (Shingles) Vaccine (1 of 2) [facility] Start: 10-28-1967 DTaP,Tdap and Td Vaccines (1 - Tdap) DTaP,Tdap and Td Vaccines (1 - Tdap) [facility] Start: 10-28-1967 Urine microalbumin profile DTAP,TDAP,TD (1 - Tdap) [facility] Start: 1966 Adult BMI Follow Up Plan Adult BMI Follow Up Plan [facility] Start: 1966 HEPATITIS C SCREENING HEPATITIS C SC MADHAVI [facility] Start: 1948 Medicare Annual Well ness Visit Medicare Annual Wellness Visit [facility] End: 09-27-2024 Bacteria identified in Urine by Culture Urine Culture Microbiology Routine Urinary retention 1 Occurrences starting 09/28/2023 until 09/27/2024 [facility] Work Phone: Comment on above: 1 Occurrences starti ng 09/28/2023 until 09/27/2024 Bacteria identified in Urine by Culture Urine Culture Microbiology Routine Urinary retention 09/28/2023 10:13 PM EDT [facility] Patient Education [facility] Work Phone: Patient referral 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 [facility] Work Phone: [facility] 09-19-2020 COVID-19 mRNA, Comir edmundo (Pfizer) BRAND SALES MANAGERMj [facility] Work Phone: [facility] 04-02-2020 influenza, injectabl e, quadrivalent, contains preservative Moise Ramos MD Work Phone: [facility] 02-20-2020 pneumococcal polysaccharide vaccine, 23 shruthi Ramos MD Work Phone: [facility] 04-11-2019 influenza, injectabl e, quadrivalent, preservative free Moise Ramos MD Work Phone: [facility] 04-25-2018 influenza, injectabl e, quadrivalent, preservative free Moise Ramos MD Work Phone: [facility] 03-17-2018 influenza, high dose seasonal, preservative-free Moise Ramos MD Work Phone: [facility] 04-28-2017 influenza, injectabl e, quadrivalent, preservative free Moise Ramos MD Work Phone: [facility] 04-28-2017 pneumococcal polysaccharide vaccine, 23 valkassie Ramos MD Work Phone: [facility] 04-08-2015 influenza, seasonal, injectable, preservative free Moise Ramos MD Work Phone: [facility] 05-05-2013 influenza, seasonal, injectable Moise aRmos MD Work Phone: [facility] Payers Date Payer Category Payer Medicaid [id number] 2023 [place] [id number] 2023-Present [phone] [address] [place] [address] [id number] 2021 Self-pay [id number] 2014 Private Health Insurance [id number] 2014 Unknown [id number] 2.16.840.1.973706.19 2013 Medicare [id number] 2.16.840.1.335475.19 2013 Medicare [id number]. 1.13.159.2.7 .[id number] 1948 Unknown [id number] 2.16.840.1.524571.3.579.2.1 259 1948 Unknown [id number] 2.16.840.1.708388.3.579.2.1 259 1948 Unknown [id number] 2.16.840.1.077087.3.579.2.1 286 1948 Unknown [id number] 2.16.840.1.311351.3.579.2.1 286 1948 Unknown [id number] 2.16.840.1.754175.3.579.2.1 286 1948 Unknown [id number] 2.16.840.1.587925.3.579.2.1 286 1948 Unknown [id number] 2.16.840.1.890773.3.579.2.1 286 1948 Unknown [id number] 2.16.840.1.550384.3.579.2.1 286 1948 Unknown [id number] 2.16.840.1.368356.3.579.2.1 286 1948 Unknown [id number] 2.16.840.1.220954.3.579.2.1 286 1948 Unknown [id number] 2.16.840.1.300879.3.579.2.1 286 1948 Unknown [id number] 2.16.840.1.388966.3.579.2.1 286 1948 Unknown [id number] 2.16.840.1.118221.3.579.2.1 286 1948 Unknown [id number] 2.16.840.1.276746.3.579.2.1 286 1948 Unknown [id number] 2.16.840.1.166785.3.579.2.1 286 1948 Unknown [id number] 2.16.840.1.389486.3.579.2.1 286 1948 Unknown [id number] 2.16.840.1.243237.3.579.2.1 286 1948 Unknown [id number] 2.16.840.1.557021.3.579.2.1 286 Unknown [id number] 2.16.840.1.850206.3.579.2.5 31 Unknown [id number] 2.16.840.1.250096.3.579.2.5 31 Unknown [id number] 2.16.840.1.506509.3.579.2.5 31 Unknown [id number] 2.16.840.1.090960.3.579.2.5 31 Unknown [id number] 2.16.840.1.575358.3.579.2.5 31 Unknown [id number] 2.16.840.1.418624.3.579.2.5 31 Social History Date Type Detail Facility Start: 06-26-2023 End: 09-28-2023 Sex Assigned At [facility] Start: 11-07-2020 End: 09-30-2023 Tobacco smoking status NHIS Ex-smoker (finding) [facility] Start: 1950 Sex Assigned At Male [facility] Start: 05-12-2016 Tobacco smoking stat us NHIS Never smoked tobacco [facility] Start: 05-12-2016 End: 09-28-2023 Tobacco use and exposure Smokeless tobacco non-user [facility] Start: 07-21-2022 Alcohol intake Current drinke r of alcohol (finding) [facility] Start: 1950 Sex Assigned At Not on file [facility] History of tobacco use Current smoker [facility] [employer] [facility] Start: 06-28-2023 End: 09-28-2023 Alcohol intake [facility] Start: 06-26-2023 End: 09-28-2023 History of Social function [facility] Has the [employer], or [employer] threatened to shut off services in your home in past 12Mo No Mail'Inside Marital Status Not on file [facility] How often to you hav e a drink containing alcohol? Never [facility] Do you feel stress - tense, restless, nervous, or anxious, or unable to sleep at night because your mind is troubled all the time - these days [OSQ] Only a little [facility] Medical Equipment Procedure Code Equipment Code Equipment Origin al Text Equipment Identifier Dates ORIF, fracture, ankle Orthopaedic bone screw, non-bioabsorbable, non-sterile ()[id number] FDA Start: 08-08-2020 ORIF, fracture, ankle Orthopaedic bone screw, non-bioabsorbable, non-sterile ()[id number] FDA Start: 08-08-2020 ORIF, fracture, ankle Orthopaedic bone screw, non-bioabsorbable, non-sterile ()[id number] FDA Start: 08-08-2020 ORIF, fracture, ankle Orthopaedic bone screw, non-bioabsorbable, non-sterile ()[id number] FDA Start: 08-08-2020 ORIF, fracture, ankle Orthopaedic bone screw, non-bioabsorbable, non-sterile ()[id number] FDA Start: 08-08-2020 ORIF, fracture, ankle Orthopaedic fixation plate, non-bioabsorbable, sterile ()[id number] FDA Start: 08-08-2020 ORIF, fracture, ankle Orthopaedic bone screw, non-bioabsorbable, non-sterile ()[id number] FDA Start: 08-08-2020 ORIF, fracture, ankle Orthopaedic bone screw, non-bioabsorbable, non-sterile ()[id number] FDA Start: 08-08-2020 BD Pen Needle Na [...] note Note Date/Time September 30, 2023 11:15am [place] [address] Wound Center Provider Note Signed Patient: Gagandeep Ahn MR#: [id number] : 1950 Acct:[id number] Age/Sex: 72 / M Copies to: Kota [...] 2023 right heel ulcer Mode of Arrival/ Licensed Physical Therapy Assistant: Family Assistive Device Used Today: Wheelchair Appetite Description: Within Normal Limits Who helps w/ dressing change?: Home Health Why Do You Need Help?: Can't Reach Ulcer, Limited mobility, Unsafe leave home byself and Taxing effort to leave home Smoking Status: Former smoker [facility] Medical History Hypertension Depression Colon cancer Vitamin D deficiency Osteopenia Mood disorder assisted current use of insulin Insomnia Hypoglycemia associated [...] Bed Appearance: Beefy Red, Black Moist, Brown, [place], Yellow and Hypergranulation Percent of Wound Bed Granulated/Red: 80 Percent of Devitalized: 20 Length (cm): 3.9 Width (cm): 2.9 Depth (cm): 0.8 CM Sq: 11.310 Surrounding Tissue Appearance: [place] Surrounding Tissue Temp: Warm Drainage Amount: Moderate [...] 12:00 Tunneling Depth: 2 Surrounding Tissue Appearance: [place] Surrounding Tissue Temp: Warm Drainage Amount: None [...] Austyn Day M.D.08/19/2023 10:46 AM Dictation Location: [place] [address] Height: 5 ft 9 in Weight: 154 [...] temporary until he can get in with Hopefully Dr. Strickland at the wound care clinic. [...] to refer to Dr. Strickland at the [place] wound care clinic or at his [facility] office for evaluation and treatment. We [...] office at the wound care clinic in [place] and they said they would review his case and get back with him. I told the patient patient's family that I will send my note today to Dr. Strickland so he can review. We called to see if he was actually taking the doxycycline that was ordered for him based on the culture results. The skilled nursing facility said that they received the order and have the pills however they did not have the order to take the medication. An order was sent today to begin taking the antibiotic as directed. 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 Time spent with patient Time Spent With Patient (min): 31 Dictated By: Beau Presley DPM DD/ [id number] Signed By: <Electronically signed by YING Presley> 09/30/23 1115 [facility] Work Phone: 1(446) 744-789804-02-2024 History of Present illness Narrative* Jo Veronica MD - 09/28/2023 3:00 PM EDT Images from the original note were not included. [address] [place] [address] A [email or web address] B [facility] [id number] Patient: Gagandeep Ahn Date of : 1950 [...] any problems now Chest pain Colon cancer ([facility]) COPD (chronic obstructive pulmonary disease) ([facility]) Diabetes mellitus ([facility]) Glaucoma Hyperlipidemia Hypertension Past Surgical History: Procedure [...] your understanding. [facility] Progress note Author Martha Wilkes [facility] September 22, 2023 11:20am Note Date/Time September 22, 2023 11: 18am [facility] [address] [place] [address] Wound Center Provider Note Signed Patient: Gagandeep Ahn MR#: [id number] : 1950 Acct:[id number] Age/Sex: 72 / M Copies to: Kota Funes APRN, CORBIN Wilkes APRN~ HPI Date of Visit Date of Visit: Date of Service: 09/22/2023 Time of Service: 11:11 Narrative HPI: 08/19/23 Gagandeep is a 72-year-old male presenting to [facility] wound care program for an initial visit for evaluation and treatment for bilateral heel ulcers. Please note that his daughter Soila is with him for the entire visit. Gagandeep does currently reside at an assisted living facility. We we will need [facility] due to the taxing [...] no acute infection signs, 1 week appt, [facility] to continue, does not always wear the [...] 2023 right heel ulcer Mode of Arrival/ Licensed Physical Therapy Assistant: Family Assistive Device Used Today: Wheelchair Appetite Description: Within Normal Limits Who helps w/ dressing change?: Home Health Why Do You Need Help?: Can't Reach Ulcer, Limited mobility, Unsafe leave home byself and Taxing effort to leave home Smoking Status: Former smoker [facility] Medical History Hypertension Depression Colon cancer Vitamin D deficiency Osteopenia 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 Insomnia Hypoglycemia associated [...] Bed Appearance: Black Dry, Black Moist, Brown, [place] and Yellow Percent of Wound Bed Granulated/Red: 10 Percent of Devitalized: 90 Length (cm): 3.6 Width (cm): 2.6 Depth (cm): 0.2 CM Sq: 9.360 Surrounding Tissue Appearance: [place] Surrounding Tissue Temp: Warm Drainage Amount: Moderate [...] 0.1 CM Sq: 1.300 Surrounding Tissue Appearance: [place] Surrounding Tissue Temp: Warm Drainage Amount: None [...] Austyn Day M.D.08/19/2023 10:46 AM Dictation Location: [place] [address] Height: 5 ft 9 in Weight: 69.853 [...] <Electronically signed by IAIN Wilkes> 09/22/23 1120 [facility] Work Phone: 1(884) 497-470003-18-2024 [facility] Progress note Author Martha Wilkes [facility] September 09, 2023 8:46am Note Date/Time September 09, 2023 8:4 6am [facility] [address] [place] [address] Wound Center Provider Note Signed Patient: Gagandeep Ahn MR#: [id number] : 1950 Acct:[id number] Age/Sex: 72 / M Copies to: Kota Funes APRN, COACH TOUR DRIVER Martha Wilkes APRN~ HPI Date of Visit Date of Visit: Date of Service: 09/09/2023 Time of Service: 08:42 Narrative HPI: 08/19/23 Gagandeep is a 72-year-old male presenting to [facility] wound care program for an initial visit for evaluation and treatment for bilateral heel ulcers. Please note that his daughter Soila is with him for the entire visit. Gagandeep does currently reside at an assisted living facility. We we will [facility] due to the taxing [...] no acute infection signs, 1 week appt, [facility] to continue, does not always wear the [...] right heel and betadine to the left, [facility] continues, family present for the visit, 7-10 day appt Subjective Pain Right Heel: Pain Description: Intermittent Pain Intensity: 8 Left Heel: Pain Description: Intermittent Pain Intensity: 8 Wound/Ulcer History When did wound start?: June 2023 right heel ulcer Mode of Arrival/ Licensed Physical Therapy Assistant: Family Assistive Device Used Today: Wheelchair Appetite Description: Within Normal Limits Who helps w/ dressing change?: Home Health Why Do You Need Help?: Can't Reach Ulcer, Limited mobility, Unsafe leave home byself and Taxing effort to leave home Smoking Status: Former smoker [facility] Medical History (Updated 09/05/23 @ 00:00 by [...] Bed Appearance: Black Dry, Black Moist, Brown, [place] and Yellow Percent of Wound Bed Granulated/Red: 5 Percent of Devitalized: 95 Length (cm): 3 Width (cm): 2.8 Depth (cm): 0.2 CM Sq: 8.400 Surrounding Tissue Appearance: [place] Surrounding Tissue Temp: Warm Drainage Amount: Moderate Drainage Description: Serosanguineous Drainage Odor: Foul Odor Left Heel: Type: Pressure/Injury Ulcer (w/diabetes/pvod) Pressure Ulcer/Injury Staging: Unstageable (at least stage 3) Bed Appearance: Black Dry Percent of Wound Bed Granulated/Red: 0 Percent of Devitalized: 100 Length (cm): 1.2 Width (cm): 1.0 Depth (cm): 0.1 CM Sq: 1.200 Surrounding Tissue Appearance: [place] Surrounding Tissue Temp: Warm Drainage Amount: None [...] Austyn Day M.D.08/19/2023 10:46 AM Dictation Location: RADIO-PC-01 Height: 5 ft 9 in Weight: 69.853 [...] 15 Dictated By: Martha Wilkes APRN DD/ Signed By: <Electronically signed by IAIN Wilkes> 09/09/23 0846 [facility] Work Phone: 1(661) 765-596003-07-2024 Progress note Author Martha Wilkes [facility] September 02, 2023 7:36am Note Date/Time September 02, 2023 7:36 am [facility] [address] [place] [address] Wound Center Provider Note Signed Patient: Gagandeep Ahn MR#: [id number] : 1950 Acct:[id number] Age/Sex: 72 / M Copies to: Kota Funes APRN, COACH TOUR DRIVER Martha Wilkes APRN~ HPI Date of Visit Date of Visit: Date of Service: 09/02/2023 Time of Service: 07:31 Narrative HPI: 08/19/23 Gagandeep is a 72-year-old male presenting to [facility] wound care program for an initial visit for evaluation and treatment for bilateral heel ulcers. Please note that his daughter Soila is with him for the entire visit. Gagandeep does currently reside at an assisted living facility. We we will need [facility] due to the taxing [...] 2023 right heel ulcer Mode of Arrival/ Licensed Physical Therapy Assistant: Family Assistive Device Used Today: Wheelchair Appetite Description: Within Normal Limits Who helps w/ dressing change?: Home Health Why Do You Need Help?: Can't Reach Ulcer, Limited mobility, Unsafe leave home byself and Taxing effort to leave home Smoking Status: Former smoker [facility] Medical History (Updated 08/28/23 @ 16:09 by [...] 0.2 CM Sq: 9.000 Surrounding Tissue Appearance: [place] Surrounding Tissue Temp: Warm Drainage Amount: Moderate Drainage Description: Serosanguineous Drainage Odor: Slight Odor Left Heel: Type: Pressure/Injury Ulcer (w/diabetes/pvod) Pressure Ulcer/Injury Staging: Unstageable (at least stage 3) Bed Appearance: Black Dry Percent of Wound Bed Granulated/Red: 0 Percent of Devitalized: 100 Length (cm): 1.5 Width (cm): 1.2 Depth (cm): 0.1 CM Sq: 1.800 Surrounding Tissue Appearance: [place] Surrounding Tissue Temp: Warm Drainage Amount: None Drainage Odor: Slight Odor Results Additional Studies: ITS Impressions Calcaneus X-Ray 08/19/23 07:42 IMPRESSION: Mild soft tissue swelling. No subcutaneous air or radiodense foreign body. No acute bony involvement. Impression dictated by: Austyn Day M.D.08/19/2023 10:46 AM Dictation Location: [place] [address] Height: 5 ft 9 in Weight: 69.853 [...] <Electronically signed by IAIN Wilkes> 09/02/23 0736 [facility] Work Phone: 1(182) 610-828502-29-2024 Progress note Author Martha Wilkes [facility] August 26, 2023 10:28am Note Date/Time August 26, 2023 10:28am [facility] [address] [place] [address] Wound Center Provider Note Signed Patient: Gagandeep Ahn MR#: [id number] : 1950 Acct:[id number] Age/Sex: 72 / M Copies to: Kota Funes APRN, COACH TOUR DRIVER Martha Wilkes APRN~ HPI Date of Visit Date of Visit: Date of Service: 08/26/2023 Time of Service: 10:25 Narrative HPI: 08/19/23 Gagandeep is a 72-year-old male presenting to [facility] wound care program for an initial visit for evaluation and treatment for bilateral heel ulcers. Please note that his daughter Soila is with him for the entire visit. Gagandeep does currently reside at an assisted living facility. We we [facility] due to the taxing [...] 2023 right heel ulcer Mode of Arrival/ Licensed Physical Therapy Assistant: Family Assistive Device Used Today: Wheelchair Appetite Description: Within Normal Limits Who helps w/ dressing change?: Home Health Why Do You Need Help?: Can't Reach Ulcer, Limited mobility, Unsafe leave home byself and Taxing effort to leave home Smoking Status: Never smoker [facility] Medical History (Updated 08/19/23 @ 07:38 by [...] 0.2 CM Sq: 8.400 Surrounding Tissue Appearance: [place] Surrounding Tissue Temp: Warm Drainage Amount: Moderate Drainage Description: Serosanguineous Drainage Odor: Slight Odor Left Heel: Type: Pressure/Injury Ulcer (w/diabetes) Pressure Ulcer/Injury Staging: Unstageable (at least stage 3) Bed Appearance: Black Dry, Black Moist and Yellow Percent of Wound Bed Granulated/Red: 0 Percent of Devitalized: 100 Length (cm): 1.4 Width (cm): 1.1 Depth (cm): 0.1 CM Sq: 1.540 Surrounding Tissue Appearance: [place] Surrounding Tissue Temp: Warm Drainage Amount: Scant Drainage Description: Serosanguineous Drainage Odor: Slight Odor Results Additional Studies: ITS Impressions Calcaneus X-Ray 08/19/23 07:42 IMPRESSION: Mild soft tissue swelling. No subcutaneous air or radiodense foreign body. No acute bony involvement. Impression dictated by: Austyn Day M.D.08/19/2023 10:46 AM Dictation Location: [place] [address] Height: 5 ft 9 in Weight: 69.853 [...] <Electronically signed by IAIN Wilkes> 08/26/23 1028 [facility] Work Phone: 1(610) 655-168402-26-2024 Progress note Author Brandy Banks [facility] August 23, 2023 12:54pm Note Date/Time August 19, 2023 7:41am [facility] [address] [place] [address] Wound Center Provider Note Signed Patient: Gagandeep Ahn MR#: [id number] : 1950 Acct:[id number] Age/Sex: 72 / M Copies to: MD Kota Peacock APRN, CORBIN Wilkes APRN~ HPI Date of Visit Date of Visit: Date of Service: 08/19/2023 Time of Service: 07:35 Narrative HPI: 08/19/23 Gagandeep is a 72-year-old male presenting to [facility] wound care program for an initial visit for evaluation and treatment for bilateral heel ulcers. Please note that his daughter Soila is with him for the entire visit. Gagandeep does currently reside at an assisted living facility. We [facility] due to the taxing [...] 2023 right heel ulcer Mode of Arrival/ Licensed Physical Therapy Assistant: Family Assistive Device Used Today: Wheelchair Appetite Description: Within Normal Limits Who helps w/ dressing change?: Home Health Why Do You Need Help?: Can't Reach Ulcer, Limited mobility, Unsafe leave home byself and Taxing effort to leave home Smoking Status: Never smoker [facility] Medical History (Updated 08/19/23 @ 07:38 by [...] 300 mg capsule 300 mg PO TID 09/13/18 [History Confirmed 05/11/22] hydrochlorothiazide 12.5 mg tablet [...] 3) Bed Appearance: Black Dry, Black Moist, [place] and Yellow Percent of Wound Bed Granulated/Red: 2 Percent of Devitalized: 98 Length (cm): 2.8 Width (cm): 3 Depth (cm): 0.2 CM Sq: 8.400 Surrounding Tissue Appearance: [place] Surrounding Tissue Temp: Warm Drainage Amount: Moderate Drainage Description: Serosanguineous Drainage Odor: Slight Odor Left Heel: Type: Pressure/Injury Ulcer (w/diabetes) Pressure Ulcer/Injury Staging: Unstageable (at least stage 3) Bed Appearance: Black Dry, Black Moist and Yellow Percent of Wound Bed Granulated/Red: 0 Percent of Devitalized: 100 Length (cm): 1.7 Width (cm): 1.3 Depth (cm): 0.2 CM Sq: 2.210 Surrounding Tissue Appearance: [place] Surrounding Tissue Temp: Warm Drainage Amount: Moderate [...] <Electronically signed by MD Brandy Banks> 08/23/23 1258 [facility] Work Phone: 1(328) 703-865901-30-2024 Miscellaneous Notes* Telephone Encounter - Marcella Jones - 07/27/2023 3:25 PM EST Patient contacted our office to schedule appointment, however, we have not received patients referral. Pattern Cutter explained that in order to schedule we would need a referral, office notes and a updated demographics sheet. Pattern Cutter also gave patient the referrals fax number of [phone]. Patient was understanding. Please advise [facility] Telephone encounter Note* Telephone Encounter - Marcella Jones - 07/27/2023 3:25 PM EST Patient contacted our office to schedule appointment, however, we have not received patients referral. Pattern Cutter explained that in order to schedule we would need a referral, office notes and a updated demographics sheet. Pattern Cutter also gave patient the referrals fax number of [phone]. Patient was understanding. Please advise [facility] [id number] Evaluation note* Encounter Date Diagnosis Assessment Notes Treatment Notes Treatment Clinical Notes Apr, Type 2 diabetes mellitus with hyperglycemia (ICD-10 - E11.65) 1. Uncontrolled, a Type 2 diabetes with A1c of 9.1%. 2. Blood glucose levels significantly higher. According to [employer] 2 cgm download 05/11/2023-05/24/20 23: Avg glucose [...] f/u with pcp for further recommendation. Apr, assisted current use of insulin (ICD-10 - Z79.4) Apr, Vitamin B 12 deficiency (ICD-10 - E53.8) 08/2022 vit b 12 388 Apr, BMI 27.0-27.9,adult (ICD-10 - Z68.27) see above [employer] Other 08-14-2023 Evaluation note* Encounter Date Diagnosis [...] f/u with pcp for further recommendation. 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 Controlled, a Type 2 diabetes with A1c of 6.5%. 2. Blood glucose levels according to Quri 2 cgm download 10/08/2022-10/21/2022 : Avg glucose 166. >250-2%, >180-31%, 70-180-67%, <70-0%, <54-0%. CV 22.6%. Reviewed download with pt, glucose often above target from higher carb load. Pt admits to not taking care of himself, his currently in skilled nursing. Recommend continue to hold levemir; however, if [...] f/u with pcp for further recommendation. 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 Dimas [employer] Other 01-24-2023 History of Present illness Narrative* [...] As Directed March 31, 2019 10:06am 03-31-2019 [facility] ([id number]) busPIRone (BUSPAR) 10 mg tablet Take 10 mg by mouth three times daily. QUEtiapine (SEROQUEL) 50 mg tablet Take 50 mg by mouth twice daily. 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 06/04/2020 CT chest ([facility]) Stable findings. 06/04/2020 CT abdomen/pelvis ([facility]) No malignant or metastatic disease. Tiny liver and left renal cyst. Enlarged prostate. Cholelithiasis. 07/06/2019 Bone density exam ([facility]) Normal/osteopenia of left femoral neck and forearm [...] CC: Dr. 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) Jun, Hypoglycemia associated with type 2 diabetes mellitus (ICD-10 - E11.649) Jun, Vitamin B 12 deficiency (ICD-10 - E53.8) 07/2021 vit b 12 >1500 Jun, BMI 26.0-26.9,adult (ICD-10 - Z68.26) 6 pound weight loss from last visit, continue with weight loss efforts [employer] Other 09-29-2022 Evaluation note* Encounter Date Diagnosis [...] (hypertension) (ICD-10 - I10) on arb Feb, 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 - 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.4) Feb, Hypoglycemia associated with type 2 diabetes mellitus (ICD-10 - E11.649) Feb, Vitamin B 12 deficiency (ICD-10 - E53.8) 07/2021 vit b 12 >1500 Feb, BMI 27.0-27.9,adult (ICD-10 - Z68.27) 8 pound weight loss from last visit, continue with weight loss efforts [employer] Other 06-14-2022 Evaluation note* Encounter Date Diagnosis [...] even just a little bit - MET [employer] Other 03-16-2022 Evaluation note* Encounter Date Diagnosis [...] walking daily, even just a little bit [employer] Other 03-01-2022 Evaluation note* Encounter Date Diagnosis Assessment Notes Treatment Notes Treatment Clinical Notes Aug, Type 2 diabetes mellitus with hyperglycemia (ICD-10 - E11.65) 1. Controlled, a Type 2 diabetes with A1c of 6.9% improved from 07/14/2021 a1c was 8.5%. 2. Blood glucose levels improved from last visit. According to [employer] cgm download 08/13/2021-08/26/2021: Avg glucose 132. 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 Patient does understand ilnll-zbrcmabw-dcmip meal dosing and adding ICS, discussed with [...] sensor sample while patient awaits shipment from [facility] Medical for Ryan order and approval [...] DME phone number to pt, will call [facility] customer service representative to check on Ryan sensor order. 90 minutes was spent on education by Isabella BAY, RN. Reviewed rayn cgm download 07/15/21-: Avg glucose 151. >250-4%, >180-16%, 70-180-80%, <70-0%, <54-0%. CV 29.7%. Noted 07/27-07/28 early am glucose <70 recommend reducing levemir by 2 units. Corinna TIMMONS, OCEAN FREIGHT FORWARDER-C, BC-ADM [employer] Other 01-25-2022 NoteHNO ID: [id number] Author: Moise Ramos MD Service: ? Author [...] As Directed March 31, 2019 10:06am 03-31-2019 [facility] ([id number]) busPIRone (BUSPAR) 10 mg tablet Take 10 mg by mouth three times daily. QUEtiapine (SEROQUEL) 50 mg tablet Take 50 mg by mouth twice daily. insulin detemir U-100 (LEVEMIR) 100 unit/mL (3 mL) injection pen insulin detemir Insulin Detemir U-100 Active 17 UNIT Subcutaneous Daily March 31, 2019 10:08am 03-31-2019 [facility] ([id number]) tiotropium (SPIRIVA) 18 mcg inhalation capsule tiotropium Tiotropium Sinclair Active 2 PUFF Inhalation Daily March 31, 2019 10:06am 03-31-2019 [facility] ([id number]) losartan (COZAAR) 50 mg tablet Take 50 [...] Stoma or Indwelling Cathet (more content not included)...[facility]01[facility] Evaluation note* Encounter Date Diagnosis Assessment Notes [...] ozempic, and fiasp to take place of Flipaste. Sent order for ryan 2 cgm to [facility]. 7. F/u apt in two weeks with instrument setter for cgm download/review log book. 8. 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 [employer] Other 07-13-2021 NoteHNO ID: [id number] Author: Stephani Ruelas APRN.COACH TOUR DRIVER Service: ? Author Type: Nurse Practitioner Type: [...] As Directed March 31, 2019 10:06am 03-31-2019 [facility] ([id number]) busPIRone (BUSPAR) 10 mg tablet Take 10 mg by mouth three times daily. QUEtiapine (SEROQUEL) 50 mg tablet Take 50 mg by mouth twice daily. insulin detemir U-100 (LEVEMIR) 100 unit/mL (3 mL) injection pen insulin detemir Insulin Detemir U-100 Active 17 UNIT Subcutaneous Daily March 31, 2019 10:08am 03-31-2019 [facility] ([id number]) tiotropium (SPIRIVA) 18 mcg inhalation capsule tiotropium Tiotropium Sinclair Active 2 PUFF Inhalation Daily March 31, 2019 10:06am 03-31-2019 [facility] ([id number]) losartan (COZAAR) 50 mg tablet Take 50 [...] Once exam is comp (more content not included)...[facility] noteNo InformationNort Minka Other Evaluation noteNo assessment information available [facility] Work Phone: Evaluation note* Diagnosis Malignant neoplasm of descending colon (HCC)- Primary Malignant neoplasm of descending colon [facility] encounter [facility] Diagnosis Onset Date Resolution Status At high risk for skin breakdown acute COPD (chronic obstructive pulmonary disease) acute Diabetes acute Hyperlipemia acute Neuropathy acute PAD (peripheral artery disease) acute Ulcer of left heel acute Ulcer of right heel acute Weakness acute [facility] Work Phone: evaluation note* Diagnosis Onset Date Resolution Status At high risk for skin breakdown acute COPD (chronic obstructive pulmonary disease) acute Diabetes acute Hyperlipemia acute Neuropathy acute PAD (peripheral artery disease) acute Ulcer of left heel acute Ulcer of right heel acute Weakness acute Ulcer of right heel acute [facility] Work Phone: evaluation note* Diagnosis Urinary retention- Primary Unspecified retention of urine [facility] Diagnosis Onset Date Resolution Status Ulcer of right heel acute At high risk for skin breakdown acute Atherosclerosis of [place] of both lower extremities acute COPD (chronic obstructive pulmonary disease) acute Diabetes acute Hyperlipemia acute Neuropathy acute PAD (peripheral artery disease) acute Pressure ulcer of right heel, stage 3 acute Ulcer of left heel acute Ulcer of right heel acute Weakness acute [facility] Work Phone: Evaluation note* Diagnosis Onset Date Resolution Status Ulcer of right heel acute At high risk for skin breakdown acute Atherosclerosis of [place] of both lower extremities acute COPD (chronic obstructive pulmonary disease) acute Diabetes acute Hyperlipemia acute Neuropathy acute PAD (peripheral artery disease) acute Pressure ulcer of right heel, stage 3 acute Ulcer of left heel acute Ulcer of right heel acute Weakness acute PAD (peripheral artery disease) acute [facility] Work Phone: History general Narrative - Reported* [...] Surgical History Cataract Hospitalization History lumbar fx [place] Minka Other InstructionsNot on filedocumented in this encounter [facility]-[employer] SystemInstructions* Attachments The following attachments cannot be sent through Care Everywhere. 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 SALES MANAGER, OCEAN FREIGHT FORWARDER-C, BC-ADMNort Minka Other Summary Purpose Family History No Family [...] by wound care for abnormal pvr at [facility] Reason for Visit At high risk for ski n breakdown COPD (chronic obstructive pulmonary disease) Diabetes Hyperlipemia Neuropathy PAD (peripheral artery disease) Ulcer of left heel Ulcer of right heel Weakness Chief Complaint e11.59 i70.245 i70.2 35 cath issues Open Wound Referred by wound care for abnormal pvr at [facility] PAD w/ Right Heel Ulcer PAD w/ Right Heel Ulcer Reason for Visit At high risk for ski n breakdown COPD (chronic obstructive pulmonary disease) Diabetes Hyperlipemia Neuropathy PAD (peripheral artery disease) Ulcer of left heel Ulcer of right heel Weakness Ulcer of right heel Chief Complaint e11.59 i70.245 i70.2 35 cath issues Referred by wound care for abnormal pvr at [facility] PAD w/ Right Heel Ulcer PAD w/ Right Heel Ulcer Open Wound - [facility] [place] [phone] I73.9 4 WK F/U ANGIOGRAM/ANGIOPLASTY; AZUL LEFT LEG Reason for Visit Ulcer of right heel At high risk for skin breakdown Atherosclerosis of [place] artery of both lower extremities COPD (chronic obstructive pulmonary disease) Diabetes Hyperlipemia Neuropathy PAD (peripheral artery disease) Pressure ulcer of right heel, stage 3 Ulcer of left heel Ulcer of right heel Weakness Chief Complaint e11.59 i70.245 i70.2 35 cath issues Referred by wound care for abnormal pvr at [facility] PAD w/ Right Heel Ulcer PAD w/ Right Heel Ulcer Open Wound - [facility] [place] [phone] I73.9 4 WK F/U ANGIOGRAM/ANGIOPLASTY; AZUL LEFT LEG Reason for Visit Ulcer of right heel At high risk for skin breakdown Atherosclerosis of syc[place] artery of both lower extremities COPD (chronic obstructive pulmonary disease) Diabetes Hyperlipemia Neuropathy PAD (peripheral artery disease) Pressure ulcer of right heel, stage 3 Ulcer of left heel Ulcer of right heel Weakness PAD (peripheral artery disease) Reason for Referral Reason Right second toe ulc er Diagnosis 1 Type 2 diabetes philip itus with hyperglycemia (E11.65) Referral Organization [facility] Referring Provider First Name Delores Referring Provider Last Name Emiliano Referring Provider Specialty Nurse Pract itioner Referred Organization [facility] Referred Provider SUZE LEVIN Referred Address ,[place], [place],[address] Referred Provider Specialty Podiatry - S urgical Chiropody Referral Priority Routine Referral Appointment Date 2022-10-30 General Notes Sammie Price 09/27 02:29:42 PM >spoke to Sarah. Appt 10/30/22 at 10am in the [place] office. Will put patient on a cancellation for sooner appt. Additional Source Comments (unrecognized sect ion and content) No Status Records FoundNo Status Records FoundNo Status Records FoundNo Status Records FoundNo Status Records FoundNo Status Records Found INFORMATION SOURCE (unrecogn ized section and content) DATE CREATED AUTHOR 07/26/2021 [facility] DATE CREATED AUTHOR AUTHOR'S ORGANIZ ATION 05/29/2023 [facility] DATE CREATED AUTHOR AUTHOR'S ORGANIZ ATION 09/30/2023 [facility] DATE CREATED AUTHOR AUTHOR'S ORGANIZ ATION 11/10/2023 [facility] DATE CREATED AUTHOR AUTHOR'S ORGANIZ ATION 11/11/2023 [facility] DATE CREATED AUTHOR AUTHOR'S ORGANIZ ATION 11/11/2023 [facility] REASON FOR VISIT (unrecogniz ed section and content) Reason Comments Colon Cancer Follow up Reason Onset Date Comments referral 07/27/2023 Reason Comments Urinary Retention Care Teams (unrecognized sec tion and content) Team Status: Active Member Role Status Dates Kota Funes APRN SLIP COVER MAKER-C Primary Care Provider, Attend ing Provider Active Team Status: Inactive Member Role Status Dates Kota Funes APRN SLIP COVER MAKER-C Primary Care Provider, Attend ing Provider Active Team Status: Active Member Role Status Dates Kota Funes APRN SLIP COVER MAKER-C Primary Care Provider Active Team Status: Inactive Member Role Status Dates Kota Funes APRN SLIP COVER MAKER-C Primary Care Provider Active Brandy Banks MD Attending Provider Active Binding Machine Operator Relationship Specialty Start Date End Date Kota Funes CNP [address] [place] [address] PCP - General Internal Medicine 12/16/17 Binding Machine Operator Relationship Specialty Start Date End Date Kota Funes APRN-COACH TOUR DRIVER [facility] [place] [address] PCP - General Family Medicine 05/04/23 Team Status: Inactive Member Role Status Dates Delores Cummings APRN Attending Provider Active Start: May 24, 2023 End: May 24, 2023 Team Status: Inactive Member Role Status Dates Kota Funes APRN SLIP COVER MAKER-C Primary Care Pr ovider, Attending Provider Active Start: May 24, 2023 End: May 24, 2023 Team Status: Inactive Member Role Status Dates Kota Funes APRN SLIP COVER MAKER-C Primary Care Provider Active Start: August 26, 2023 End: August 26, 2023 Martha Wilkes APRN Attending Provider Active St art: August 26, 2023 End: August 26, 2023 Team Status: Inactive Member Role Status Dates Kota Funes APRN SLIP COVER MAKER-C Primary Care Provider Active Start: August 28, 2023 End: August 28, 2023 Jose Enrique Almendarez DO Emergency Provider Active St art: August 28, 2023 End: August 28, 2023 Team Status: Active Member Role Status Dates Kota Funes APRN SLIP COVER MAKER-C Primary Care Provider Active Start: September 09, 2023 Martha Wilkes APRN Attending Provider Active St art: September 09, 2023 Team Status: Inactive Member Role Status Dates Kota Funes APRN SLIP COVER MAKER-C Primary Care Provider Active Start: September 09, 2023 End: September 09, 2023 Steven Horta MD Attending Provider Active Start: September 09, 2023 End: September 09, 2023 Martha Wilkes APRN Referring Provider Active St art: September 09, 2023 End: September 09, 2023 Team Status: Inactive Member Role Status Dates Kota Funes APRN SLIP COVER MAKER-C Primary Care Provider Active Start: September 13, 2023 End: September 13, 2023 Steven Horta MD Attending Provider Active Start: September 13, 2023 End: September 13, 2023 Team Status: Active Member Role Status Dates Kota Funes APRN SLIP COVER MAKER-C Primary Care Provider Active Start: September 13, 2023 Steven Horta MD Attending Prov ider, Other Provider Active Start: September 13, 2023 Binding Machine Operator Relationship Specialty Start Date End Date Kota Funes APRN-COACH TOUR DRIVER [place] [id number] PCP - General Family Medicine 05/04/23 Team Status: Active Member Role Status Dates Kota Funes APRN SLIP COVER MAKER-C Primary Care Provider Active Start: September 30, 2023 Martha Wilkes APRN Active Start: A 2023 Beau Presley DPM (WND) Attending Provider Active Start: September 30, 2023 Team Status: Active Member Role Status Dates Kota Funes APRN SLIP COVER MAKER-C Primary Care Provider Active Start: October 07, 2023 Steven Horta MD Attending Provider Active Start: October 07, 2023 Team Status: Inactive Member Role Status Dates Kota Funes APRN SLIP COVER MAKER-C Primary Care Provider Active Start: October 07, 2023 End: October 07, 2023 Steven Horta MD Attending Provider Active Start: October 07, 2023 End: October 07, 2023 Team Status: Inactive Member Role Status Dates Kota Funes APRN SLIP COVER MAKER-C Primary Care Provider Active Start: September 30, [...] or prosecute any alcohol or drug abuse patient.[facility] FOR RECORDS PERTAINING TO PATIENTS WHO ARE [...] BE BASED ON THE PRIMARY CLINICAL RECORDS. [facility]. provides no warranty or guarantee of the accuracy or completeness of information in this document.
[2023-11-18 06:32] LABS: Glucometer 154 mg/dL (74-106)
[2023-11-18 06:38] LABS: Basophils Absolute Auto 0.1 10^3/uL (0.0-0.1); Basophils Percent Auto 0.6 % (0.2-2.0); Eosinophils Absolute Auto 0.4 10^3/uL (0.0-0.7); Eosinophils Percent Auto 4.8 % (0.9-7.0); Hematocrit 34.2 % (42.0-54.0); Hemoglobin 11.1 g/dL (14.0-18.0); Immature Granulocytes Abs Auto 0.02 10^3/uL (0.00-0.03); Immature Granulocytes Pct Auto 0.2 % (0.0-0.5); Lymphocytes Absolute Auto 2.2 10^3/uL (1.2-3.8); Lymphocytes Percent Auto 26.4 % (20.5-60.0); Mean Corpuscular HGB Conc 32.5 g/dL (29.9-35.2); Mean Corpuscular Hemoglobin 27.3 pg (25.9-34.0); Monocytes Absolute Auto 0.7 10^3/uL (0.3-0.8); Monocytes Percent Auto 7.7 % (1.7-12.0); Neutrophils Absolute Auto 5.1 10^3/uL (1.4-6.5); Neutrophils Percent Auto 60.3 % (43.0-75.0); Platelet Count 258 10^3/uL (150-450); Red Blood Count 4.07 10^6/uL (4.70-6.10); Red Cell Distribution Width 16.3 % (11.0-15.0); White Blood Count 8.5 10^3/uL (4.0-11.0)
[2023-11-18] MEDS: LACTATED RINGER'S SOLUTION 1,000 ML 50 ML IV (06:52)
[2023-11-18] MEDS: CEFAZOLIN SODIUM/DEXTROSE,ISO 2 GM/50 ML PIGGYBACK IV (07:51)
--- NOTE | 2023-11-18 07:56 | PC.NURSE ---
Patient was consented for a nerve block by Dr. Skelton. Time out was performed per protocol. Patient was placed on monitor and O2. Patient medicated per Dr. Skelton. Patient positioned for block and a bedside ultrasound was used to locate nerve for block. Block started at 0743 and ended at 0748. Patient tolerated well. Patient remained on monitor and O2 until taken to OR.
[2023-11-18] MEDS: VANCOMYCIN HCL 1,000 MG VIAL 1000 MG TOPICAL (09:10)
--- NOTE | 2023-11-18 09:51 | PM.ORONB ---
Brief Operative Note Date of procedure: 11/18/23 Pre-op diagnosis general: Right heel ulcer with bone necrosis, chronic osteomyelitis, diabetes with heel ulcer Post-op diagnosis: same as pre-op Procedure: Procedure performed: Right partial calcanectomy, implantation of soft tissue design release engineer and application of allogenic skin substitute Indications for procedure: Patient is a 73-year-old male with bilateral heel ulcers has been treated conservatively for some time and was referred to us for further management given his lack of healing. With local wound care his left heel continues to respond well however his right heel has not. Recent MRI was concerning for osteomyelitis therefore I discussed the risks and benefits with the patient and his family regarding surgical intervention as well as continued local wound care. Goals were set to avoid major amputation and heal his wound therefore they elected to proceed with the below procedures. Intraoperative findings: Preoperative wound measurements of the right posterior heel: 2.5 x 2.0 cm Wound was fibrogranular and did have a sinus which tracked down to the posterior aspect of the calcaneus. After the wound was excised and the posterior calcaneal tubercle was exposed the bone was soft and discolored. All involved bone and questionable bone was excised to 100% healthy bleeding bone. The large soft tissue deficit was unable to be closed therefore decision was made to use an external soft tissue design release engineer which significantly decreased the wound size. A synthetic skin substitute was also used to aid in wound healing. Procedure in detail: Patient was identified in preoperative holding and correct side and site were marked and consent was obtained. Regional anesthesia was performed by the anesthesia team and the patient was brought back to the operating theater and general anesthesia was administered. Antibiotics were given, 2 g of Ancef. Then once under general anesthesia the patient was flipped into a well-padded prone position and the right lower extremity was prepped and draped in usual sterile fashion with a tourniquet on the right thigh. Formal timeout was performed and the operative extremity was exsanguinated and tourniquet was inflated. With attention to the right posterior heel wound. The wound was excised and a 3-1 ellipse which included a small amount of healthy adjacent tissue. There was a sinus which did track down to the calcaneus. Once all involved soft tissue was excised a sagittal saw was used to remove the posterior aspect of the calcaneus preserving as much Achilles attachment as possible. All involved bone was excised and then further debridement and questionable soft tissue and bone was performed. Only 100% healthy tissue remained. On the back table 5 cc of cerament implanted with vancomycin was prepared. The exposed calcaneus was curetted removing any soft or questionable areas previously and the cerment was placed into the calcaneus. The resultant large soft tissue deficit was unable to be closed and at this point measured 6.8 x 3.8 cm. Decision was made to use an external soft tissue design release engineer and derma close was applied according to the manufactures directions with 6 external anchors being placed which were held with the use of julius. Then the tension band was wrapped around in a W-M fashion accordingly anchoring the tension device to the lateral central skin anchor. The tensioner was then used accordingly which significantly decreased the size of the wound which now measured 2.1 x 0.4 cm. There was however exposed calcaneus therefore decision was made to place a synthetic skin substitute over this area which was tucked under the tension band. The tourniquet was deflated and prompt hyperemic response was noted hemostasis was controlled then a dry sterile dressing consisting of Adaptic, 4 x 4's, ABDs and Kerlix were applied followed by multiple layers of cast padding applied from the forefoot to the popliteal fossa which was held in place with loosely applied Daniel wrap's. An additional layer of cast padding was applied followed by a posterior splint which was further padded over the wound. The tension device was also secured in place prior to splint application with a drain stitch and was well-padded with 4 x 4's. The posterior splint was then held in place by Daniel wrap's. The patient was then transferred to an inpatient bed and was extubated successfully. Patient tolerated the procedure and anesthesia well and was transported to the recovery room with vital signs stable and brisk capillary refill to the right toes. Postoperative plan: Transfer to medical surgical unit under the hospitalist care Perioperative antibiotics and pain medicine were ordered Estimated length of stay is 1-2 nights Will follow Implants: DermaClose external soft tissue design release engineer SDRM synthetic skin substitute 2x2 cm Anesthesia: regional and General-ET Surgeon: Hubert Strickland Frame Welder Cargo Utility Trailers: Babar Elder Estimated blood loss (mL): 25 Pathology: other (bone from calcaneus) Condition: stable Disposition: PACU
--- NOTE | 2023-11-18 10:23 | XR_ITS ---
The [address] [address] Patient Name: GAGANDEEP PARKER MRN: [id number] date: 1950 Sex: M [facility] Current Patient Location: [place] Accession/Order Number: [id number] Exam Date: 11/18/2023 10:45 Report Date: 11/18/2023 16:08 At the request of: ELIZABETH SNOW Procedure: XR ankle RT min 3V PROCEDURE: XR ankle RT min 3V COMPARISON: 01/04/2024 HISTORY: Postop x-ray FINDINGS: BONES:Suspected postsurgical changes along the posterior calcaneus at the Achilles insertion this area is obscured by hardware and a splint. Degenerative changes with marginal osteophyte formation SOFT TISSUES:Vascular calcification. Pullback placement EFFUSION:None visible. OTHER: Negative. XR/XR ankle RT min 3V IMPRESSION: Postsurgical changes posterior calcaneus at the Achilles insertion Electronically authenticated by: SABRINA HOOPER Date: 11/18/2023 16:08
[2023-11-18 10:26] LABS: Glucometer 159 mg/dL (74-106)
[2023-11-18 11:13] LABS: Glucometer 175 mg/dL (74-106)
--- NOTE | 2023-11-18 13:28 | CM.NOTE ---
Discussed with pt discharge planning, pt plan is to go back to [facility] in [place] and he has [facility]. Pt uses walker at home.
--- NOTE | 2023-11-18 13:49 | CM.NOTE ---
Faxed Case Management referral information and Physician notes to [facility] for updates.
--- NOTE | 2023-11-18 13:57 | P.PN_ITS ---
Progress Note: Subjective Subjective Interval history: 11/18/23 8994 This is a 73-year-old male patient who underwent a right partial calcanectomy, implantation of soft tissue salon stylist and application of allogenic skin substitute per Dr Strickland earlier today. Please see Dr Strickland's H&P documentation for clinical course leading to this surgical procedure. The patient has been admitted postoperatively to the hospitalist service for medical management during his admission, and Dr. Strickland service will see the patient in consult during his admission. At the time of my exam the patient is resting comfortably in bed. He denies any pain, but does not yet have motion or sensation after nerve block and surgery. He admits to significant neuropathy especially of the right lower extremity and has minimal sensation of that foot at baseline. He denies any chest pain, shortness of breath, N/V/D, or any acute complaint. Exam Constitutional Vital Signs, click to edit/add: Last Vital Signs Temp 96.6 F L 11/18/23 11:12 Pulse 65 11/18/23 11:12 Resp 18 11/18/23 11:12 BP 173/85 H 11/18/23 11:12 Pulse Ox 98 11/18/23 11:12 O2 Del Method Room Air 11/18/23 11:12 Common normals: no apparent distress, oriented x3 and alert General appearance: cooperative Orientation/consciousness: Yes awake [facility] Common normals: normocephalic, head/scalp atraumatic and hearing grossly normal bilaterally Eye Common normals: PERRL, EOMs intact bilaterally, conjunctivae normal and no scleral icterus General eye: normal appearance of both eyes Chest Common normals: inspection of chest normal Chest: symmetrical chest wall rise Respiratory Common normals: normal respiratory effort, no use of accessory muscles and clear to auscultation bilaterally Effort & inspection: able to speak in complete sentences Cardio Common normals: regular rate, regular rhythm, S1 normal heart sound and peripheral pulses 2+ throughout Heart sounds: murmur (HSM 2/6) and normal, physiologic split S2 Peripheral pulses: pulses 2+ throughout GI Common normals: Normal to inspection, nondistended, normoactive bowel sounds present, soft to palpation, non-tender and no hepatosplenomegaly Bladder/kidney exam: bladder normal to palpation Extremity Common normals: no calf tenderness General: no clubbing, no cyanosis and no edema Right lower extremity: foot and digits (Post op dressing D&I. No motion/sensation of the R foot post nerve block) Right foot and digits: palpation (Iron Post, warm toes) Neuro Common normals: CN's II-XII intact bilaterally, moves all extremities, no focal motor deficits and no sensory deficits noted Psych Common normals: mental status grossly normal Progress Note: Objective Labs Labs: Short CBC 11/18/23 Range/Units 06:33 WBC 8.5 (4.0-11.0) 10^3/uL Hgb 11.1 L (14.0-18.0) g/dL Hct 34.2 L (42.0-54.0) % Plt Count 258 (150-450) 10^3/uL Progress Note: A&P Assessment and Plan (1) S/P foot surgery, right: Assessment and Plan: Acute * POD#0 - R partial calcanectomy, implantation of soft tissue salon stylist, and application of allogenic skin substitute per Dr Strickland, Cook Vacuum Kettle * 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 * See Podiatry service H&P for clinical course leading to this surgical procedure * Defer post-op pain management, WB status, PT/OT orders, IVFs, antibiotics, DVT prophylaxis to the podiatry service * CBC, BMP in AM (2) Type 2 diabetes mellitus with diabetic neuropathy: Assessment and Plan: Chronic * Hold home metformin and Ozempic during admission/immediate post op period * ACHS glucometer checks * CC diet * Med SSI for glucose correction * Continue home gabapentin for neuropathy (3) Depression: Assessment and Plan: Chronic (w/ anxiety) * Continue home Buspirone, Abilify, Paxil (4) PTSD (post-traumatic stress disorder): Assessment and Plan: Chronic * Continue home lamotrigine and sertraline (5) Memory changes: Assessment and Plan: Chronic * Continue home donepezil (6) Hypertension: Assessment and Plan: Chronic * Continue home Losartan, Toprol XL and amlodipine (7) Hyperlipidemia: Assessment and Plan: Chronic * Continue home statin
[2023-11-18] MEDS: VANCOMYCIN HCL 1,000 MG in 0.9 % SODIUM CHLORIDE 250 ML 250 MG IV (14:49)
[2023-11-18] MEDS: 0.9 % SODIUM CHLORIDE 250 ML 10 ML IV (14:50)
[2023-11-18] MEDS: GABAPENTIN 300 MG CAPSULE PO ×2 (14:53→21:07)
--- NOTE | 2023-11-18 15:40 | CM.NOTE ---
PT note sent to [facility].
[2023-11-18] MEDS: ENOXAPARIN SODIUM 40 MG/0.4 ML SYRINGE SUBQ (17:17)
[2023-11-18] MEDS: INSULIN ASPART 300 UNIT/3 ML PEN SUBQ ×2 (17:18→21:07)
[2023-11-18 17:21] LABS: Glucometer 365 mg/dL (74-106)
[2023-11-18 20:03] LABS: Glucometer 324 mg/dL (74-106)
[2023-11-18] MEDS: ARIPIPRAZOLE 2 MG TABLET PO (21:07)
[2023-11-18] MEDS: DONEPEZIL HCL 5 MG TABLET PO (21:07)
[2023-11-18] MEDS: BUSPIRONE HCL 15 MG TABLET PO (21:07)
[2023-11-19 00:01] VITALS: BP 129/70; PULSE 62; TEMP 36.6; O2SAT 96
[2023-11-19] MEDS: VANCOMYCIN HCL 1,000 MG in 0.9 % SODIUM CHLORIDE 250 ML 250 MG IV (01:08)
[2023-11-19 04:20] VITALS: BP 137/71; PULSE 56; TEMP 36.6; O2SAT 96
[2023-11-19] MEDS: GABAPENTIN 300 MG CAPSULE PO ×2 (05:36→13:12)
[2023-11-19 05:37] LABS: Anion Gap 9.7; BUN Creatinine Ratio 24.4; Calcium 9.1 mg/dL (8.5-10.1); Carbon Dioxide 25.3 mmol/L (21.0-32.0); Chloride 104 mmol/L (98-107); Estimated GFR (African America >60 (>=60); Estimated GFR (Non-African Ame >60 (>=60); Glucose 215 mg/dL (74-106); Sodium 135 mmol/L (136-145)
[2023-11-19 05:39] LABS: Basophils Percent Auto 0.2 % (0.2-2.0); Eosinophils Percent Auto 0.1 % (0.9-7.0); Hematocrit 32.6 % (42.0-54.0); Hemoglobin 10.4 g/dL (14.0-18.0); Immature Granulocytes Abs Auto 0.06 10^3/uL (0.00-0.03); Immature Granulocytes Pct Auto 0.4 % (0.0-0.5); Lymphocytes Absolute Auto 1.2 10^3/uL (1.2-3.8); Lymphocytes Percent Auto 8.4 % (20.5-60.0); Mean Corpuscular HGB Conc 31.9 g/dL (29.9-35.2); Mean Corpuscular Hemoglobin 26.9 pg (25.9-34.0); Mean Corpuscular Volume 84.5 fL (80.0-94.0); Mean Platelet Volume 9.8 fL (9.5-13.5); Monocytes Absolute Auto 0.8 10^3/uL (0.3-0.8); Monocytes Percent Auto 5.9 % (1.7-12.0); Neutrophils Absolute Auto 12.2 10^3/uL (1.4-6.5); Platelet Count 236 10^3/uL (150-450); Red Blood Count 3.86 10^6/uL (4.70-6.10); Red Cell Distribution Width 15.8 % (11.0-15.0); White Blood Count 14.3 10^3/uL (4.0-11.0)
[2023-11-19 05:41] LABS: Estimated Average Glucose 143 mg/dL; Glycohemoglobin A1C 6.6 % (4.5-6.2)
[2023-11-19 08:01] LABS: Glucometer 186 mg/dL (74-106)
[2023-11-19] MEDS: PAROXETINE HCL 20 MG TABLET 30 MG PO (08:21)
[2023-11-19] MEDS: POTASSIUM CHLORIDE 10 MEQ ER TABLET 20 MEQ PO (08:21)
[2023-11-19 08:22] VITALS: BP 160/77
[2023-11-19] MEDS: LAMOTRIGINE 25 MG TABLET 50 MG PO (08:22)
[2023-11-19] MEDS: SERTRALINE HCL 50 MG TABLET 25 MG PO (08:22)
[2023-11-19] MEDS: BUSPIRONE HCL 15 MG TABLET PO (08:22)
[2023-11-19] MEDS: TAMSULOSIN HCL 0.4 MG CAPSULE PO (08:22)
[2023-11-19] MEDS: POLYETHYLENE GLYCOL 3350 17 GM POWDER PACKET PO (08:22)
[2023-11-19] MEDS: METOPROLOL SUCCINATE 25 MG TAB.ER.24H PO (08:22)
[2023-11-19] MEDS: HYDROCHLOROTHIAZIDE 25 MG TABLET PO (08:22)
[2023-11-19] MEDS: MAGNESIUM OXIDE 400 MG TABLET PO (08:22)
[2023-11-19] MEDS: AMLODIPINE BESYLATE 5 MG TABLET 2.5 MG PO (08:22)
[2023-11-19 08:23] VITALS: BP 160/77
[2023-11-19] MEDS: INSULIN ASPART 300 UNIT/3 ML PEN SUBQ ×2 (08:23→12:20)
[2023-11-19] MEDS: LOSARTAN POTASSIUM 50 MG TABLET 100 MG PO (08:23)
--- NOTE | 2023-11-19 08:35 | CM.NOTE ---
Rounds made with Dr. Tucker, will await for Dr. Strickland to see pt for further recommendations. Possible discharge to home today.
--- NOTE | 2023-11-19 08:42 | PM.PN ---
Progress Note: Subjective Subjective Interval history: Patient seen resting comfortably at bedside this a.m., POD #1 s/p right partial calcanectomy, implantation of soft tissue logging equipment operator and application of allogenic skin substitute dos 11/18/2023. Denies pain in the right lower extremity, still feeling numbness as expected with nerve block yesterday as well as neuropathy at baseline. Denies any acute events overnight. Denies any acute lower extremity complaints and denies any constitutional symptoms at time of visit. Exam Narrative Exam Narrative: RLE splint left CDI. CFT intact digits. No erythema edema or ecchymosis proximal or distal dressing. Active range of motion of digits present. Light touch sensation absent consistent with nerve block and baseline neuropathy. Compartment soft compressible, no pain with calf or thigh compression. Constitutional Vital Signs, click to edit/add: Last Vital Signs Temp 97.8 F 11/19/23 04:20 Pulse 56 L 11/19/23 04:20 Resp 16 11/19/23 04:20 BP 160/77 H 11/19/23 08:23 Pulse Ox 96 11/19/23 04:20 O2 Del Method Room Air 11/19/23 04:20 Progress Note: Objective Labs Labs: Short CBC 11/19/23 Range/Units 04:51 WBC 14.3 H (4.0-11.0) 10^3/uL Hgb 10.4 L (14.0-18.0) g/dL Hct 32.6 L (42.0-54.0) % Plt Count 236 (150-450) 10^3/uL BMP 11/19/23 04:51 Sodium 135 L Potassium 4.0 Chloride 104 Carbon Dioxide 25.3 BUN 20.0 H Creatinine 0.82 Glucose 215 H Calcium 9.1 Progress Note: A&P Assessment and Plan (1) S/P foot surgery, right: (2) Type 2 diabetes mellitus with diabetic neuropathy: (3) Depression: (4) PTSD (post-traumatic stress disorder): (5) Memory changes: (6) Hypertension: (7) Hyperlipidemia: Plan Patient examined and evaluated. All findings discussed with patient all questions answered to patient's satisfaction. Pertinent labs and imaging reviewed. Leukocytosis at 14, likely postsurgical in nature. RLE splint to be left CDI until follow-up. Maintain strict nonweightbearing right lower extremity. PT/social work on board. Anticipate DC back to his assisted living. Postop prescription sent to patient's pharmacy on file. IntraOp cultures and path pending. Will DC on broad-spectrum Doxy and Bactrim. Stable to DC from podiatry perspective if deemed safe to return to his home situation and adequate pain control with p.o. meds as block begins to wear off today. May require additional night of inpatient if requiring IV pain control. Follow-up with Dr. Strickland at [facility] 1 week from discharge. Rest per primary, please call with questions or concerns.
--- NOTE | 2023-11-19 09:41 | PT.DAILY ---
Physical Therapy Daily Note PT Daily Note/Assess Start: 11/18/23 14:27 Freq: Status: Active Protocol: Document 11/19/23 09:15 BRYNO (Rec: 11/19/23 09:41 BRYON [id number]) Physical Therapy Daily Note/Assessment Time In/Time Out Time In 09:15 Time Out 09:40 Subjective Subjective Denies pain this AM. Feeling really good. Willing to work with PT and get up into chair. Therapeutic Exercise Time Therapeutic Exercise Minutes (minutes) 8 Therapeutic Exercise Units 1 Therapeutic Exercise Treatment Therapeutic Exercise Treatment L LE AP, QS Heel-slides, SLR to improve strength allowing for R NWB. R SLR for R hip strengthening. Therapeutic Activity Time Therapeutic Activity Minutes (minutes) 15 Therapeutic Activity Units 1 Therapeutic Activity Treatment Bed Mobility Ability Standby Assistance Chair Transfer Ability Contact Guard Assist,Minimum Assist Therapeutic Activity Comments Supine to sit SBA, patient able to get self to EOB and sit unsupported without issues . Sit to stand at RW SBA to CGA with R NWB maintained. Static stand with R LE hip swings 10x without issues. Pivot/hop to chair SBA to CGA. Patient takes 5 small hops to pivot to chair maintaining NWB. Patient did have mild LOB x1 that increased CGA, but patient was able to self correct LOB by stopping and gathering bearings and then continue with transfers. Total Physical Therapy Time Total Therapy Minutes 23 Total Physical Therapy Units 2 Summary Daily Note Summary Improved ability with bed mobility and pivot transfers to chair while maintaining R NWB. Patient in chair with R LE elevated, call light in reach and all needs met post RX. Patient would benefit from PT upon return to [place] to continue to work on strength and transfer ability. Patient is highly motivated and does well with PT today.
[2023-11-19 11:05] LABS: Glucometer 240 mg/dL (74-106)
--- NOTE | 2023-11-19 11:08 | CM.NOTE ---
Faxed discharge summary, med list, and CRF to [facility]. Called to update Rosa at [facility].
--- NOTE | 2023-11-19 11:54 | CM.NOTE ---
Spoke with pt again regarding discharge planning and comfort level with returning home with NWB status. Pt continues to wish to return home with HH services, pt states he has wheelchair at home to use for long distance and felt comfortable this morning working with PT. Pt confident to return home with HH services.
[2023-11-19 14:15] VITALS: BP 156/75; PULSE 61; TEMP 36.8; O2SAT 99
--- NOTE | 2023-11-19 14:23 | P.DS_ITS ---
<Statement entered by Blake Tucker MD - 11/24/23 06:48> This documentation has been reviewed and approved. This documentation has been reviewed and approved. Pt seen and examined at the bedside. No complaints Agree with input and finding s from nurse practitioner DS: Providers Provider Primary care physician: Martha Wilkes NP Consults: 11/18/23 10:23 Consult to Hemodialysis Technician Routine Reason for consult:: Group Home Other reason:: Possible SNF, anticipate DC home Physical Therapy Eval and Treat Routine Reason for consultation: postop gait eval/fall risk, nwb rle Discharging clinician: Stella Felix DS: Diagnosis Discharge Diagnosis (1) S/P foot surgery, right: (2) Type 2 diabetes mellitus with diabetic neuropathy: (3) Depression: (4) PTSD (post-traumatic stress disorder): (5) Memory changes: (6) Hypertension: (7) Hyperlipidemia: DS: Summary Hospital Course Hospital Course: The patient was admitted to the [facility] after a right partial calcanectomy per Dr Strickland on 11/18/2023. His postoperative course was unremarkable. He has chronic right lower extremity neuropathy with severely impaired sensation at baseline. He has regained motion of the right toes after an intraoperative nerve block, but continues to have paresthesias of the right foot which is consistent with his baseline neuropathy. His pain is very well-controlled in this setting and he has not required any pain medications postoperatively. As the patient is recovering well, he is being discharged home in stable condition. The podiatry service has prescribed pain medication and antibiotics at discharge. The patient is to follow-up with Dr Strickland within 1 week. His surgical dressing is to be left intact until that follow-up visit. He will have home health services to assist with dressing changes and physical therapy for strengthening. He is to remain nonweightbearing to the right lower extremity. Time Spent with Patient Time attestation: Total time spent providing and/or coordinating discharge services: Time spent: greater than 30 minutes Specific discharge activities: Physical exam, discussion of discharge plan, questions answered. Exam Constitutional Vital Signs, click to edit/add: Last Vital Signs Temp 98.2 F 11/19/23 14:15 Pulse 61 11/19/23 14:15 Resp 18 11/19/23 14:15 BP 156/75 H 11/19/23 14:15 Pulse Ox 99 11/19/23 14:15 O2 Del Method Room Air 11/19/23 14:15 Common normals: no apparent distress, oriented x3 and alert General appearance: cooperative Orientation/consciousness: Yes awake HENMT Common normals: normocephalic and head/scalp atraumatic Eye Common normals: PERRL, EOMs intact bilaterally, conjunctivae normal and no scleral icterus Neck & C-Spine Common normals: no JVD Respiratory Common normals: normal respiratory effort, no use of accessory muscles and clear to auscultation bilaterally Effort & inspection: able to speak in complete sentences and symmetric chest movement Cardio Common normals: no JVD, regular rate, regular rhythm, S1 normal heart sound, S2 normal heart sound and peripheral pulses 2+ throughout Heart sounds: murmur (HSM 2/6) GI Common normals: Normal to inspection, nondistended, normoactive bowel sounds present, soft to palpation and non-tender Bladder/kidney exam: bladder normal to palpation Extremity Common normals: normal to inspection, full ROM, normal capillary refill and no pedal edema General: no clubbing and no cyanosis Neuro Common normals: moves all extremities and no focal motor deficits Speech: speech normal Sensory exam: extremities (Chronic BLE neuropathy/sensation deficit. R foot asensate per baseline. ) Motor exam: other (R toes w/ good motion on command) Psych Common normals: mental status grossly normal and activity/motor behavior normal DS: Data Data Completed and Pending Labs on day of discharge: Labs from last 24 hours 11/19/23 11/19/23 11/19/23 11:04 08:00 04:51 WBC 14.3 H RBC 3.86 L Hgb 10.4 L Hct 32.6 L MCV 84.5 MCH 26.9 MCHC 31.9 RDW 15.8 H Plt Count 236 MPV 9.8 Neut % (Auto) 85.0 H Lymph % (Auto) 8.4 L [place] % (Auto) 5.9 Eos % (Auto) 0.1 L Baso % (Auto) 0.2 Neut # (Auto) 12.2 H Lymph # (Auto) 1.2 [place] # (Auto) 0.8 Eos # (Auto) 0.0 Baso # (Auto) 0.0 Abs Immat Gran (auto) 0.06 H Imm/Tot Granulo (auto) 0.4 Sodium 135 L Potassium 4.0 Chloride 104 Carbon Dioxide 25.3 Anion Gap 9.7 BUN 20.0 H Creatinine 0.82 Est GFR ( Amer) >60 Est GFR (Non-Af Amer) >60 BUN/Creatinine Ratio 24.4 Glucose 215 H Estimat Average Glucose 143 Hemoglobin A1c 6.6 H Calcium 9.1 POC Glucose 240 H 186 H 11/18/23 11/18/23 20:02 17:17 WBC RBC Hgb Hct MCV MCH MCHC RDW Plt Count MPV Neut % (Auto) Lymph % (Auto) [place] % (Auto) Eos % (Auto) Baso % (Auto) Neut # (Auto) Lymph # (Auto) [place] # (Auto) Eos # (Auto) Baso # (Auto) Abs Immat Gran (auto) Imm/Tot Granulo (auto) Sodium Potassium Chloride Carbon Dioxide Anion Gap BUN Creatinine Est GFR ( Amer) Est GFR (Non-Af Amer) BUN/Creatinine Ratio Glucose Estimat Average Glucose Hemoglobin A1c Calcium POC Glucose 324 H 365 H Preliminary micro results at discharge 11/18/23 08:45 - Preliminary Foot Right 11/18/23 08:45 - Preliminary Foot Right 11/18/23 08:45 Tissue Culture - Preliminary Foot Right Staphylococcus aureus 11/18/23 08:45 Tissue Culture - Preliminary Foot Right Staphylococcus aureus Discharge Plan Discharge Disposition: Home Health Service Condition: Good Discharge Medications: New doxycycline hyclate 100 mg capsule 100 mg PO BID 14 Days Qty: 28 0RF hydrocodone-acetaminophen 5-325 mg tablet 1 tab PO Q6H PRN (Reason: pain) 7 Days Qty: 28 0RF aspirin [Adult Low Dose Aspirin] 81 mg tablet,delayed release (DR/EC) 81 mg PO BID 30 Days Qty: 60 0RF docusate sodium [Colace] 100 mg capsule 100 mg PO BID PRN (Reason: constipation) 7 Days Qty: 14 0RF tizanidine 2 mg tablet 2 mg PO TID PRN (Reason: muscle spasticity) 7 Days Qty: 21 0RF amoxicillin-pot clavulanate [Augmentin] 500-125 mg tablet 1 tab PO BID 14 Days Qty: 28 0RF No Action amlodipine 2.5 mg tablet 2.5 mg PO DAILY aripiprazole 2 mg tablet 2 mg PO QPM buspirone 15 mg tablet 15 mg PO BID docusate sodium 100 mg capsule 100 mg PO QDAY PRN (Reason: constipation) donepezil 5 mg tablet 5 mg PO QPM gabapentin 300 mg capsule 300 mg PO TID hydrochlorothiazide 25 mg tablet 25 mg PO DAILY hydrocodone-acetaminophen 7.5-300 mg tablet 1 tab PO Q6H PRN (Reason: pain) lamotrigine 25 mg tablet 50 mg PO QDAY losartan 100 mg tablet 100 mg PO DAILY magnesium oxide 400 mg (241.3 mg magnesium) tablet 400 mg PO DAILY metformin 1,000 mg tablet 1,000 mg PO BID metoprolol succinate 25 mg tablet extended release 24 hr 25 mg PO DAILY ondansetron 4 mg tablet,disintegrating 4 mg PO Q8H PRN (Reason: nausea and vomiting) paroxetine HCl 30 mg tablet 30 mg PO DAILY polyethylene glycol 3350 17 gram/dose powder 17 g PO DAILY potassium chloride 20 mEq tablet,ER particles/crystals 20 meq PO QDAY rosuvastatin 20 mg tablet 20 mg PO DAILY Ozempic 2 mg/dose (8 mg/3 mL) pen injector 2 mg SUBCUT QWEEK tamsulosin 0.4 mg capsule 0.4 mg PO Q24H sertraline 25 mg tablet 25 mg PO DAILY loperamide [Imodium A-D] 2 mg capsule 2 mg PO Q8H PRN (Reason: loose stool) acetaminophen [Tylenol 8 Hour] 650 mg tablet extended release 650 mg PO Q8H PRN (Reason: pain) vitamin B complex Tablet 1 tab PO DAILY alendronate 70 mg tablet 70 mg PO QWEEK Activity Restrictions/Additional Instructions: - Right foot splint to be left clean, dry, and intact until follow-up visit with Dr Strickland - [facility] to obtain dressing change instructions from Dr Strickland after follow up visit - Maintain strict nonweightbearing to right lower extremity. - Follow-up with Dr. Strickland at [facility] 1 week from discharge. Call for appointment. Print Language: Welsh
--- NOTE | 2023-11-19 14:31 | CM.NOTE ---
Attempted to [facility] Txt Dr. Elder at 9:52am without response for order for drsg changes. Attempted to contact office for pt's f/u appt and orders for HH drsg changes. No answer, office closed.
--- NOTE | 2023-11-19 15:10 | CM.NOTE ---
Attempted to page Dr. Strickland for drsg change instructions for HH services. No response [facility] will reach out to Em's office on Wednesday.
[2023-11-19] MEDS: OXYCODONE HCL 5 MG TABLET 10 MG PO (15:20)
--- NOTE | 2023-11-23 09:13 | SWNOTE1 ---
Please see case/insurance healthcare consultant note for discharge planning. Pt did not need SNF, went home with home health.
--- NOTE | 2023-11-24 12:58 | SWNOTE1 ---
SEE was able to speak with pt's daughter, Christen, as the pt's home number was ringing busy. Christen voiced that pt went to Dr. Strickland's office yesterday to have it re-wrapped. Dr. Strickland is going to change dressing at the office 1x weekly, they are not having home health come in.
== END 2023-11-19 15:25 | disposition home health service (06) ==
LOC: SURGOUT 10:32 → MS 11:07
PROVIDERS: Nurse Practitioner; Family Provider Family Medicine; PCP Nurse Practitioner Adult Health; Visit Provider Podiatrist Foot & Ankle Surgery
PROC: (CPT 400; principal; 2023-11-18 07:30)
DX: E11.69 Type 2 diabetes mellitus with other specified complication (principal); M86.471 Chronic osteomyelitis with draining sinus, right ankle and foot; E11.621 Type 2 diabetes mellitus with foot ulcer; L97.414 Non-pressure chronic ulcer of right heel and midfoot with necrosis of bone; F43.10 Post-traumatic stress disorder, unspecified; F32.A Depression, unspecified; I10 Essential (primary) hypertension; E78.5 Hyperlipidemia, unspecified; E11.40 Type 2 diabetes mellitus with diabetic neuropathy, unspecified; Z79.84 Long term (current) use of oral hypoglycemic drugs; Z79.85 Long-term (current) use of injectable non-insulin antidiabetic drugs; R41.3 Other amnesia; Z87.891 Personal history of nicotine dependence
CPT/HCPCS: 11960; 15004; 15275; 28005; 36415; 64445; 73610; 80048; 82948; 83036; 85025; 87070; 87076; 87102; 87116; 87150; 87186; 87205; 87206; 88304; 88311; 96365; 96366; 97110; 97161; 97530; 99999; A2011; C1713; J0690; J1100; J1650; J1885; J2250; J2405; J2704; J2795; J3010; J3370

== ENCOUNTER 2023-11-23 13:30 | Outpatient (OUT) | payer MEDICARE, MEDICAID, SELFPAY | END 2023-11-23 13:31 | disposition home or self-care (01) | LOC: WC 11-24 09:11 | PROVIDERS: Family Provider Family Medicine; PCP Nurse Practitioner Adult Health; Visit Provider Podiatrist Foot & Ankle Surgery | DX: E11.621 Type 2 diabetes mellitus with foot ulcer (principal); L97.412 Non-pressure chronic ulcer of right heel and midfoot with fat layer exposed | CPT/HCPCS: G0463 ==

== ENCOUNTER 2023-11-30 09:41 | Outpatient (OUT) | payer MEDICARE, MEDICAID, SELFPAY | END 2023-11-30 09:42 | disposition home or self-care (01) | LOC: WC 09:41 | PROVIDERS: Family Provider Family Medicine; PCP Nurse Practitioner Adult Health; Visit Provider Podiatrist Foot & Ankle Surgery | DX: E11.621 Type 2 diabetes mellitus with foot ulcer (principal); L97.412 Non-pressure chronic ulcer of right heel and midfoot with fat layer exposed | CPT/HCPCS: G0463 ==

== ENCOUNTER 2023-12-08 09:43 | Outpatient (OUT) | payer MEDICARE, MEDICAID, SELFPAY | END 2023-12-08 09:44 | disposition home or self-care (01) | LOC: WC 09:44 | PROVIDERS: Family Provider Family Medicine; PCP Nurse Practitioner Adult Health; Visit Provider Podiatrist Foot & Ankle Surgery | DX: E11.621 Type 2 diabetes mellitus with foot ulcer (principal); L97.412 Non-pressure chronic ulcer of right heel and midfoot with fat layer exposed | CPT/HCPCS: 11042 ==

== ENCOUNTER 2023-12-15 11:18 | Outpatient (OUT) | payer MEDICARE, MEDICAID, SELFPAY ==
--- OUTSIDE RECORDS SUMMARY | 2023-12-15 11:41 | XMS_ITS | CCD ---
Author Organization [facility] Care Team Providers Care Broadcast Operations Technician Name Role Phone Delores Cummings Unavailable Marcella Christian Unavailable Janine Melvin Unavailable Anglim, LOCOMOTIVE PIPE FITTER Kota Primary Care Provider Anglim, LOCOMOTIVE PIPE FITTER Kota Attending Provider Anglim, LOCOMOTIVE PIPE FITTER Kota Primary Care Provider Anglim, LOCOMOTIVE PIPE FITTER Kota Attending Provider MD Brandy Banks Attending Provider Anglim BLACKENER, Kota Primary Care Provider Anglim LOCOMOTIVE PIPE FITTER-BLACKENER, Kota A Primary Care Provider Anglim, LOCOMOTIVE PIPE FITTER Kota Primary Care Provider Anglim, LOCOMOTIVE PIPE FITTER Kota Attending Provider [phone] Anglim, LOCOMOTIVE PIPE FITTER Kota Primary Care Provider IAIN Wilkes Attending Provider DO Jose Enrique Almendarez Emergency Provider MD Steven Horta Attending Provider [phone] JO VERONICA Referring Unavailable ANGLIM, KOTA A Primary Care Unavailable AMILCAR NORTON Referring Unavailable ANGLIM, KOTA A Primary Care Unavailable YING Presley (WND) Attending Provider ANGLIM, KOTA A Primary Care Unavailable ANGLIM, KOTA A Primary Care Unavailable KIRILL MADRID Attending Unavailable MAGALY PATEL Admitting Unavailable ANGLIM, KOTA A Primary Care Unavailable ELLIS MOELLER Attending Unavailab AMILCAR Colón Admitting Unavailable ANGLIM, KOTA A Primary Care Unavailable PADMA BLAIR Attending Unavailable PADMA BLAIR Attending Unavailable PADMA BLAIR Referring Unavailable ANGLIM, KOTA A Primary Care Unavailable PADMA BLAIR Attending Unavailable PADMA BLAIR Referring Unavailable ANGLIM, KOTA A Primary Care Unavailable KIRILL MADRID Attending Unavailable KIRILL MADRID Referring Unavailable ANGLIM, KOTA A Primary Care Unavailable ANGLIM, KOTA A Primary Care Unavailable RADHA DAURTE Attending Unavailable AIDECHYUSRA CUENCA Attending Unavailable KARCHYUSRA CUENCA Referring Unavailable ANGLIM, KOTA A Primary Care Unavailable ANGLIM, KOTA A Primary Care Unavailable THAI ORLANDO Attending Unavailable BRANDY BAUTISTA Attending Unavailable SWIFT, UNIQUE Referring Unavailable LEVINSUZE Attending Unavailable SWIFT, UNIQUE Referring Unavailable SUZE LEVIN Attending Unavailable MARCOS HALL Attending Unavailable YING Strickland Attending Provider LENI MREIDA Attending Unavailable Steven Horta Admitting Unavailabl e Steven Horta Attending Unavailabl e Anglim, Kota Primary Care Unavailable Jose Enrique Almendarez Attending Unavailable Anglim, Kota Primary Care Unavailable Jose Enrique Almendarez Admitting Unavailable Hubert Strickland Admitting Unavailable HighlHubert lord Attending Unavailable Anglim, Kota Primary Care Unavailable Anglim, Kota Attending Unavailable Anglim, Kota Admitting Unavailable Anglim, Kota Primary Care Unavailable Anglim, Kota Primary Care Unavailable Beau Presley (WND) Admitting Unavailable Beau Presley (WND) Attending Unavailable Anglim, Kota Primary Care Unavailable CopSeth michaelia Admitting Unavailable CopSeth michaelia Attending Unavailable Steven Horta Admitting Unavailabl e Steven Horta Attending Unavailabl e Anglim, Kota Primary Care Unavailable JO VERONICA Attending Unavailable ANGLIM, KOTA A Referring Unavailable ANGLIM, KOTA A Primary Care Unavailable VENUS RAMOS I Attending Unavailable ANGLIM, KOTA A Referring Unavailable ANGLIM, KOTA A Primary Care Unavailable JO VERONICA Attending Unavailable ANGLIM, KOTA A Referring Unavailable ANGLIM, KOTA A Primary Care Unavailable JO VERONICA Attending Unavailable KOTA HYMAN Referring Unavailable KOTA HYMAN Primary Care Unavailable IAIN Hyman Primary Care Provider Allergies Allergy Classification Reported Allergen(s) Allergy Type Date of Onset Reaction(s) Facility (1 source) ALLERGIES NOT ON FILE; Translations: [ALLERGIES NOT ON FILE] Propensity to adverse reactions (disorder) [facility] Repository Medications Current Medications Medication Drug Class(es) Dates [...] 2 TAB PO EVERY 4-6 HOURS 30 4 November 07, 2020 May 11, 2022 12:18pm [...] times daily. cefadroxil 500 mg oral capsule (6 sources) Cephalosporin Antibacterial Start: 09-28-19 24 End: 10-05-19 24 take 500 mg by mouth once daily Cefadroxil Active 500 MG PO Daily September 30, 2023 12:00am docusate sodium 100 mg oral capsule (20 sources) Start: 08-09-19 21 End: 10-26-19 21 take 1 capsule by [...] capsule (20 sources) Tetracycline-class Drug Start: 09-27-19 24 take 100 mg by mouth twice daily Doxycycline Hyclate Active 100 MG PO Twice daily September 27, 2023 12:00am Start: 11-07-2020 End: 05-11-2022 take 100 mg by mouth twice daily Doxycycline Hyclate Discontinued 100 MG PO Twice daily 10 November 07, 2020 12:00am May 11, 2022 12:18pm Start: 01-21-2020 End: 10-25-2020 take 100 mg by mouth twice daily Doxycycline Hyclate Discontinued 100 MG PO Twice daily 20 January 21, 2020 12:00am October 25, 2020 11:54am take 1 capsule by [facility] every twenty-four hours Doxycycline Hyclate 100 MG [...] Subcutaneous Daily March 31, 2019 10:08am 03-31-2019 [facility] ([id number]) Insulin Detemir U-100 (Levemir Flexpen) 100 unit/mL (3 mL) insulin pen (7 sources) Start: 4 inject 10 [IU] by [...] (Humalog Kwikpen Insulin) 100 unit/mL insulin pen (7 sources) Start: 09-09-2023 Insulin Lispro (Humalog Kwikpen [...] 2018 8:50am take 2 tablets by mo [facility] in the morning losartan (COZAAR) 50 mg tablet Take 2 tablets (100 mg total) by mouth in the morning. 0 Active take 1 tablet by roberto every twelve hours Losartan Potassium 50 MG 1 tablet Orally Twice a day Active take 1 tablet by roberto every twenty-four hours Losartan Potassium 50 MG [...] Chelate (Magnesium (Oxide/Aa Chelate)) 300 mg capsule (7 sources) Start: 4 take 1 capsule by [...] by mouth. metroNIDAZOLE 375 mg oral capsule (6 sources) Nitroimidazole Antimicrobial Start: 10-05-19 take 1 [...] (20 sources) Serotonin Reuptake Inhibitor Start: 09-09-19 take 30 mg by mouth once daily [...] mg by mouth once daily. Polyethylene Glycols (9 sources) Start: 05-11-2022 Polyethylene Glycol Active 1 EACH MISCELLANE Daily May 11, 2022 1:00am Start: 05-11-2022 Polyethylene G lycol Active 1 EACH MISCELLANE Daily May 11, 2022 12:00am potassium chloride 20 meq extended release oral tablet (8 sources) Start: 08-19-2023 take 1 tablet by [...] 0 Active sertraline 100 mg oral tablet (8 sources) Serotonin Reuptake Inhibitor Start: 08-19-2023 take [...] 2022 12:19pm take 2 tablets by mo [facility] every eight hours as needed for pain acetaminophen (TYLENOL ARTHRITIS) 650 mg 8 hr tablet Take 2 tablets (1,300 mg total) by mouth every 8 (eight) hours as needed for pain. 0 Active take 1 capsule by mo [facility] every six hours as needed Acetaminophen 325 [...] as needed Orally every 6 hrs Not-Taking [id number] 200 actuat albuterol 0.09 mg/actuat metered dose inhaler (20 sources) beta2-Adrenergic Agonist Start: 03-31-2019 albut bony HFA (PROVENTIL HFA, VENTOLIN HFA) 90 mcg/actuation inhaler Albuterol Albuterol Sulfate Active 2 PUFF Inhalation As Directed March 31, 2019 10:06am 03-31-2019 [facility] ([id number]) 0 03/31/2019 Active Start: 03-31-2019 End: 10-25-2020 [...] As Directed March 31, 2019 10:06am 03-31-2019 [facility] ([id number]) ARIPiprazole 5 mg oral tablet (20 sources) Atypical Antipsychotic Start: 2 End: 4 take 5 mg by mouth once daily Aripiprazole Discontinued 5 MG PO Daily May 11, 2022 1:00am August 19, 2023 8:42am Start: 11-25-2021 take 1 tablet by roberto th once daily ARIPiprazole (ABILIFY) 2 mg tablet Take 1 tablet (2 mg total) by mouth nightly. 0 11/25/2021 Active ascorbic acid 500 mg oral tablet (11 sources) Vitamin C Start: 08-09-2020 End: 10-25-2020 take 1 tablet by mouth once daily Ascorbic Acid (Vitamin C) (Vitamin C) 500 mg Tablet Discontinued 500 MG PO Daily 0 August 09, 2020 1:00am October 25, 2020 11:53am Aspir-81 (14 sources) Aspir-81 Not-Robert ing aspirin 81 mg chewable tablet (12 sources) Platelet Aggregation Inhibitor, Nonsteroidal Anti-inflammatory Drug [...] Comment on above: Take 1 [facility] times daily as needed for up to 60 days. brimonidine tartrate 1.5 mg/ml ophthalmic solution (10 sources) alpha-Adrenergic Agonist Start: 05-11-2022 End: 08-19-2023 [...] on above: Take 2 tablets by mo [facility] twice daily. Calcium Carbonate-Vitamin D3 (Oyster Shell Calcium-Vit D3) 500 mg(1,250mg) -200 unit Tablet (11 sources) Start: 1 End: 2 take 1 [...] 2020 1:00am cephalexin 500 mg oral capsule (7 sources) Cephalosporin Antibacterial Start: 08-28-2023 End: 09-09-2023 [...] oral tablet (20 sources) Anti-epileptic Agent Start: End: 2 take 600 mg by mouth twice daily [...] 600 mg. glyBURIDE 5 mg oral tablet (20 sources) Sulfonylurea Start: 05-11-2022 End: 08-19-2023 take [...] / losartan potassium 100 mg oral tablet (20 sources) Thiazide Diuretic, Angiotensin 2 Receptor Lori [...] Insulin) 100 unit/mL (3 mL) Insulin Pen (7 sources) Start: End: inject 3 [IU] by subcutaneous injection once daily at bedtime Insulin Detemir U-100 (Levemir Flextouch U100 Insulin) 100 unit/mL (3 mL) Insulin Pen Discontinued 3 UNIT SUBCUT Daily at bedtime March 31, 2019 12:00am August 19, 2023 8:42am Insulin Lispro (Humalog Kwikpen Insulin) 100 unit/mL Insulin Pen (7 sources) Start: End: 02-22-2 024 inject 1 dose by subcutaneous injection twice daily Insulin Lispro (Humalog Kwikpen Insulin) 100 unit/mL Insulin Pen Discontinued 1 sliding scale dose SUBCUT Twice daily October 25, 2020 12:00am August 19, 2023 8:42am iv contrast (radiology procedure) (1 source) Start: 018 iv contrast (radiology procedure) CT Chest ABD/PEL-Inject, [...] provided with radiology test) (3 sources) Start: 020 iv contrast (will be provided with radiology [...] guidelines link. latanoprost 0.05 mg/ml ophthalmic solution (10 sources) Prostaglandin Analog Start: 05-11-20 End: 08-19-19 [...] GLP-1 Receptor Agonist Start: 05-11-20 End: 08-19-19 24 inject 1.8 mg by subcutaneous injection once [...] at bedtime. ondansetron 8 mg oral tablet (12 sources) Serotonin-3 Receptor Antagonist Start: 2015 End: 2017 Ondansetron Hcl (Zofran (As Hydrochloride)) 8 mg Tablet Discontinued TABLET March 08, 2017 12:00am March 10, 2018 12:04pm Comment on above: Take 1 tablet by roberto th every 8 hours as needed. polyethylene glycol 3350 64832 mg powder for oral solution (12 sources) Osmotic Laxative Start: 2020 End: 2020 [...] on above: Take 1 tablet by roberto as needed. tiotropium 0.018 mg inhalation powder (20 sources) Anticholinergic Start: 2018 tiotropium (SPIRIVA) 18 mcg inhalation capsule tiotropium Tiotropium [place] Active 2 PUFF Inhalation Daily March 31, 2019 10:06am 03-31-2019 [facility] ([id number]) 0 03/31/2019 Active Start: 03-31-2019 End: 05-11-2022 take 1 puff(s) by inhalation once daily Tiotropium [place] (Spiriva With Handihaler) 18 mcg Capsule, W/Inhalation Device Discontinued 2 PUFF INHALATION Daily March 31, 2019 12:00am May 11, 2022 12:18pm take 1 capsule by in halation once daily Spiriva HandiHaler 18 MCG 1 capsule by inhaling the contents of the capsule using the HandiHaler device Inhalation Once a day Active Comment on above: tiotropium Tiotropiu m [place] Active 2 PUFF Inhalation Daily March 31, 2019 10:06am 03-31-2019 [facility] ([id number]) vitamin b12 0.1 mg oral tablet (9 sources) Vitamin B12 Start: 05-11-2022 End: 08-19-2023 [...] colon] Onset: 03-31-2016 Chronic Cancer of colon (11 sources) History of malignant neoplasm of colon; Translations: [Personal history of other malignant neoplasm of large intestine] 03-15-2018 Episodic Chronic obstructive pulmonary disease and bronchiectasis (16 sources) Chronic obstructive lung disease; Translations: [Chronic [...] Coronary atherosclerosis; Translations: [Atherosclerotic heart disease of [place] coronary artery with other forms of angina pectoris] Onset: 04-04-2018 06-26-2023 Chronic Coronary atherosclerosis and other heart disease (1 source) Coronary atherosclerosis and other heart disease; Translations: [Atherosclerosis of [place] arteries of right leg with ulceration of heel and midfoot] Onset: 08-26-2023 Diabetes mellitus with complications (20 sources) Hypoglycemia due to type 2 diabetes mellitus; Translations: [Type 2 diabetes mellitus with hypoglycemia without coma] Onset: 07-14-2021 Resolved: 08-26-2021 Chronic Diabetes mellitus without complication (20 sources) Diabetes mellitus; Translations: [Type 2 diabetes mellitus without complications] Onset: 11-17-2023 08-05-2020 Chronic Disorders of lipid metabolism (20 [...] 08-03-2020 Episodic Genitourinary symptoms and ill-defined conditions (2 sources) Encounter for fitting and adjustment of urinary device; Translations: [Unspecified urinary incontinence] Onset: 09-13-2023 Chronic Genitourinary symptoms and ill-defined conditions (5 sources) Retention of urine; Translations: [Retention of urine, unspecified] Onset: 09-28-2023 09-28-2023 Episodic Glaucoma (2 sources) Glaucoma; Translations: [Unspecified glaucoma] 03-30-2018 Chronic Hyperplasia of prostate (7 sources) Retention of urine; Translations: [Benign prostatic hyperplasia with lower urinary tract symptoms] 09-05-2023 Chronic Intestinal obstruction without hernia (12 sources) Stricture of colon; Translations: [Other intestinal obstruction unspecified as to partial versus complete obstruction] Onset: 10-29-2023 03-15-2018 Episodic Malaise and fatigue (15 sources) Asthenia; Translations: [Weakness] Onset: 06-26-2023 08-19-2023 Episodic Nausea and vomiting (2 sources) Nausea; [...] injuries and conditions due to external causes (11 sources) Hematoma; Translations: [Other injury of unspecified body region, initial encounter] 01-21-2020 Episodic Other injuries and conditions due to external causes (11 sources) Contusion; Translations: [Other injury of unspecified body region, initial encounter] 01-21-2020 Episodic Other nervous system disorders (11 sources) Neuropathy; Translations: [Polyneuropathy, unspecified] 08-05-2020 Chronic Other nervous system disorders (7 sources) Polyneuropathy, unspecified; Translations: [Mononeuritis of unspecified site] 09-09-2023 Chronic Other nervous system disorders (11 sources) Pain in limb; Translations: [Other acute [...] Onset: 09-13-2023 08-19-2023 Chronic Residual codes; unclassified (7 sources) At risk for impaired skin integrity ; Translations: [Other specified personal risk factors, not elsewhere classified] 08-19-2023 Episodic Residual codes; unclassified (7 sources) Other specified personal risk factors, not elsewhere classified; Translations: [Other specified conditions influencing health status] 09-09-2023 Episodic Unclassified (1 source) Difficulty Urinating Onset: 11-07-2023 Unclassified (1 source) Urinary Catheter Insertion or Check Onset: 09-13-2023 Unclassified (1 source) Catheter Inserition Problem Onset: 09-13-2023 Unclassified (1 source) Retention of urine, unspecified; Translations: [Retention of urine, unspecified] Onset: 08-28-2023 Urinary tract infections (8 sources) Urinary tract infectious disease; Translations: [Urinary tract infection, site not specified] Onset: 11-04-2023 09-05-2023 Episodic Viral infection (1 source) COVID-19; Translations: [COVID-19] Onset: 06-26-2023 Past or Other Problems Problem Classification Problem Date Documented Date Episodic/Chronic Mood disorders (2 sources) Mood disorders Onset: [...] Test Name Value Interpretation Reference Range Facility [facility] 11-18-2023 L Specimen: [id number] Received: 11/18/23 Status: [facility] Num: [id number] Spec Type: Surgical Subm Dr: Hubert Strickland,DPM, MS Tissues: A Tendon/Sheath (ACHILLES TENDON) B Bone Fragments - Other than Path Fracture (RT CALCANEOUS) C Soft Tissue/Surgical Margin-Other than Tumor,Mass,Lip or Amanda (RT HEEL WOUND) Procedures: HE/3, Gross/Micro L4, Gross/Micro L3/2, Decalcification Age/ Patient Sex Location Account Attending Physician Racquel Ahnry G 73/M [facility] [id number] Huebrt Strickland DPM, MS SPEC NUM: [id number] RECD: 11/18/23 STATUS: SHAHRZAD JACKMANKacy NUM: [id number] ALISTAIR: 11/18/[address] [facility] [address]: Hubert Strickland DPM, MS ENTERED: 11/18/23 [facility] DR: Frances Navarro SPEC TYPE: Surgical DEPT: KORY [facility] ORDERED: HE/3, Gross/Micro L4, Gross/Micro L3/2, Decalcification ORDERED: HE/3, Gross/Micro L4, Gross/Micro L3/2, Decalcification Pathological Diagnosis A, right Achilles tendon, excision: -Fragment of moderately actively inflamed, and therefore likely slightly infected, tenosynovial soft tissue is apparent B, right calcaneus bone, excision: -Irregularly thickened foot bone with marked Bony remodeling, including severe diffuse chronic fibrosis of the medullary cavity, and with patchy minor persistent chronic osteomyelitis is also observed C, skin and soft tissue, right heel, excision: -Moderate active chronic nonhealing open wound, including surface exudate, and occasional tiny displaced bony dusts and small chondroid cluster in the underlying inflamed granulation tissue, per associated effect of chronic stress and/or traumatic fracture of the underneath heel bone Clinical Information Chronic osteomyelitis right foot -------- Specimen: [id number] Received: 11/18/23 Status: SHAHRZAD [place] Num: [id number] Spec Type: Surgical Subm Dr: Hubert Strickland DPM, MS Tissues: A Tendon/Sheath (ACHILLES TENDON) B Bone Fragments - Other than Path Fracture (RT CALCANEOUS) C Soft Tissue/Surgical Margin-Other than Tumor,Mass,Lip or Amanda (RT HEEL WOUND) Procedures: HE/3, Gross/Micro L4, Gross/Micro L3/2, Decalcification -------- Patient: Gagandeep Ahn [id number] (Continued) -------- Specimen: [id number] Received: 11/18/23 (Continued) Signed (signature on file) Tc Yadav MD 11/22/23 1929 -------- Specimen: [id number] Received: 11/18/23 Status: SHAHRZAD [place] Num: [id number] Spec Type: Surgical Subm Dr: Hubert Strickland,DPM, MS Tissues: A Tendon/Sheath (ACHILLES TENDON) B Bone Fragments - Other than Path Fracture (RT CALCANEOUS) C Soft Tissue/Surgical Margin-Other than Tumor,Mass,Lip or Amanda (RT HEEL WOUND) Procedures: HE/3, Gross/Micro L4, Gross/Micro L3/2, Decalcification -------- Patient: Gagandeep Ahn [id number] (Continued) -------- Specimen: [id number] Received: 11/18/23 (Continued) Gross Description Received are 3 formalin filled containers, each labeled with the patient's name, date of and specific specimen site. A. Further labeled right Achilles tendon is a 0.6 x 0.6 x 0.3 cm rubbery soft tissue fragment. The specimen is bisected and submitted entirely in A1. B. Further labeled right calcaneus are multiple fragments of bone and soft tissue measuring in aggregate 5.1 x 4.1 x 0.7 cm. Cut sections demonstrate unremarkable surfaces. [facility] sections following decalcification are submitted in B1. C. Further labeled right heel wound are 2 fragments of melendez ulcerated skin measuring in aggregate 2.6 x 2.5 x 0.8 cm. Cut sections reveal slightly softened bony surfaces. The remaining cut surfaces are comprised of melendez-yellow tissue. [facility] sections following decalcification are submitted in C1. TW [facility] Codes 42955 X.3 32003 X2 -------- -------- Specimen: [id number] Received: 11/18/23 Status: SHAHRZAD [place] Num: [id number] Spec Type: Surgical Subm Dr: Hubert Strickland,DPM, MS Tissues: A Tendon/Sheath (ACHILLES TENDON) B Bone Fragments - Other than Path Fracture (RT CALCANEOUS) C Soft Tissue/Surgical Margin-Other than Tumor,Mass,Lip or Amanda (RT HEEL WOUND) Procedures: HE/3, Gross/Micro L4, Gross/Micro L3/2, Decalcification (more content not included)... Normal [facility] Office Visiton 11-17-2023 Follow-up visit [id number] Gagandeep Ahn 1950 [facility] Provider Department Center 11/17/2023 120-LENI MERIDA [employer] CARD [facility] No family history on file Level of Service:64502 [place] OFFICE/OUTPATIENT NEW MODERATE MDM 45 MINUTES Reason for Visit and Comments: New Patient [632] - Cardiac clearance Normal [facility] Orders Onlyon 11-17-2023 Orders Only [id number] Gagandeep Ahn 1950 [facility] Provider Department Center 11/17/2023 [id number], HISTORICAL [employer] C[facility] No family history on file Normal [facility] Orders Onlyon 11-16-2023 Orders Only [id number] Gagandeep Ahn 1950 [facility] Provider Department Center 11/16/2023 [id number], HISTORICAL [employer] C[facility] No family history on file Normal [facility] URINE CULTUREon 11-07-2023 Bacteria identified Cx Nom [...] RESISTANCE/MDRO MULTI DRUG RESISTANT ORGANISM F Normal [facility] Comment on above: Performed By: #### C BCA, PINR, 85285-5, BMP, 3040-3, 61152-1, 5643-2, LIVR, 37208-1, 91541-1, THYR, 42935-3, 20491-4 #### [facility] ([id number]) [address] [place] [address] 248[address] URN MACROSCOPIC NURon 2023 BILIRUBIN TORRES Negative Normal NEG [facility] Comment on above: Performed By: #### C BCA, PINR, 68172-1, BMP, 3040-3, 70949-6, 5643-2, LIVR, 05821-3, 86070-3, THYR, 83193-2, 97862-0 #### [facility] ([id number]) [address] [place] [address] 41296 BLOOD/HGB TORRES Trace Abnormal NEG [facility] Comment on above: Performed By: #### C BCA, PINR, 11968-5, BMP, 3040-3, 33360-3, 5643-2, LIVR, 81595-5, 88534-1, THYR, 04889-2, 68227-1 #### [facility] ([id number]) [address] [place] [address] 75514 GLUCOSE TORRES Negative Normal NEG [facility] Comment on above: Performed By: #### C BCA, PINR, 90536-4, BMP, 3040-3, 17036-1, 5643-2, LIVR, 96534-1, 35698-6, THYR, 30568-8, 38856-7 #### [facility] ([id number]) [address] [place] [address] [place] [address] KETONES TORRES Negative Normal NEG [facility] Comment on above: Performed By: #### C BCA, PINR, 94376-9, BMP, 3040-3, 05436-5, 5643-2, LIVR, 89876-3, 81435-8, THYR, 16516-2, 94536-9 #### [facility] ([id number]) [address] [place] [address] [place] [address] LEUKOCYTE ESTERASE TORRES Small Abnormal NEG [facility] Comment on above: Performed By: #### C BCA, PINR, 92182-3, BMP, 3040-3, 33538-2, 5643-2, LIVR, 47828-6, 79043-5, THYR, 22909-2, 35800-3 #### [facility] ([id number]) [address] [place] [address] [place] [address] NITRITE TORRES Positive Abnormal NEG [facility] Comment on above: Performed By: #### C BCA, PINR, 18714-5, BMP, 3040-3, 25354-9, 5643-2, LIVR, 69257-2, 78728-2, THYR, 57830-2, 76925-9 #### [facility] ([id number]) [address] [place] [address] PH TORRES 5.5 Normal 5.0-8.5 [facility] Comment on above: Performed By: #### C BCA, PINR, 95901-0, BMP, 3040-3, 03684-8, 5643-2, LIVR, 60855-7, 96362-6, THYR, 58337-4, 78326-0 #### [facility] ([id number]) [address] [place] [address] [place] [address] PROTEIN TORRES Trace Abnormal NEG [facility] Comment on above: Performed By: #### C BCA, PINR, 54092-9, BMP, 3040-3, 94358-5, 5643-2, LIVR, 06354-7, 06656-4, THYR, 03700-3, 95890-8 #### [facility] ([id number]) [address] [place] [address] SPECIFIC GRAVITY TORRES 1.025 Normal 1.003-1.035 [facility] Comment on above: Performed By: #### C BCA, PINR, 67049-9, BMP, 3040-3, 11181-5, 5643-2, LIVR, 81626-6, 46945-9, THYR, 94663-8, 68890-4 #### [facility] ([id number]) [address] [place] [address] [place] [address] UROBILINOGEN TORRES 0.2 eu/dL Normal <1.1 [facility] Comment on above: Performed By: #### C BCA, PINR, 42568-6, BMP, 3040-3, 07163-8, 5643-2, LIVR, 72600-1, 38154-4, THYR, 58637-6, 22336-6 #### [facility] ([id number]) [address] [place] [address] [place] [address] BASIC METABOLIC PANLon 11-03 Anion gap [Moles/Vol] 14 mmol/L Normal 5-15 [facility] Comment on above: Performed By: #### C BCA, PINR, 66110-7, BMP, 3040-3, 35637-2, 5643-2, LIVR, 40585-1, 93342-0, THYR, 16736-5, 07743-8 #### [facility] ([id number]) [address] [place] [address] [place] [address] Calcium [Mass/Vol] 9.6 mg/dL Normal 8.5-10.5 [facility] Comment on above: Performed By: #### C BCA, PINR, 18336-6, BMP, 3040-3, 50152-2, 5643-2, LIVR, 14081-0, 68657-3, THYR, 89184-8, 38241-6 #### [facility] ([id number]) [address] [place] [address] 25571 Chloride [Moles/Vol] 102 mmol/L Normal 98-109 [facility] Comment on above: Performed By: #### C BCA, PINR, 76905-7, BMP, 3040-3, 56095-6, 5643-2, LIVR, 59346-4, 67822-7, THYR, 89686-5, 91373-9 #### [facility] ([id number]) [address] [place] [address] 27670 CO2 [Moles/Vol] 21 mmol/L Low 22-32 [facility] Comment on above: Performed By: #### C BCA, PINR, 32514-0, BMP, 3040-3, 25732-1, 5643-2, LIVR, 17211-2, 29408-9, THYR, 64331-0, 95351-3 #### [facility] ([id number]) [address] [place] [address] 75209 Creatinine [Mass/Vol] 0.94 mg/dL Normal 0.70-1.20 [facility] Comment on above: Result Comment: METH OD TRACEABLE TO IDMS STANDARD Performed By: #### C BCA, PINR, 09973-3, BMP, 3040-3, 85814-7, 5643-2, LIVR, 68119-2, 63805-7, THYR, 42817-9, 27340-4 #### [facility] ([id number]) [address] [place] [address] 15332 GFR/1.73 sq M.predicted among non-blacks MDRD (S/P/Bld) [Vol rate/Area] 85 mL/min/{1.73_m2} Normal >59 [facility] Comment on above: Result Comment: Reported eGFR is based on the CKD-EPI 2020 equation that does not use a race coefficient. Performed By: #### C BCA, PINR, 12892-1, BMP, 3040-3, 15208-6, 5643-2, LIVR, 57359-0, 25980-4, THYR, 58116-7, 96186-1 #### [facility] ([id number]) [address] [place] [address] [place] [address] Glucose [Mass/Vol] 114 mg/dL High 65-99 [facility] Comment on above: Performed By: #### C BCA, PINR, 51638-5, BMP, 3040-3, 17730-6, 5643-2, LIVR, 59742-5, 62094-9, THYR, 85702-0, 45883-4 #### [facility] ([id number]) [address] [place] [address] [place] [address] Potassium [Moles/Vol] 3.5 mmol/L Normal 3.5-5.0 [facility] Comment on above: Performed By: #### C BCA, PINR, 11230-0, BMP, 3040-3, 21814-9, 5643-2, LIVR, 44548-9, 15172-4, THYR, 31606-6, 27673-5 #### [facility] ([id number]) [address] [place] [address] [place] [address] Sodium [Moles/Vol] 137 mmol/L Normal 134-146 [facility] Comment on above: Performed By: #### C BCA, PINR, 48278-3, BMP, 3040-3, 78226-8, 5643-2, LIVR, 80699-1, 14575-0, THYR, 55992-0, 11395-6 #### [facility] ([id number]) [address] [place] [address] [place] [address] Urea nitrogen [Mass/Vol] 17 mg/dL Normal 5-27 [facility] Comment on above: Performed By: #### C BCA, PINR, 16659-7, BMP, 3040-3, 38076-1, 5643-2, LIVR, 51842-1, 04087-2, THYR, 45116-1, 30878-3 #### [facility] ([id number]) [address] [place] [address] 83184 CBC AND AUTO DIFFon 11-04-19 24 ABSOLUTE BASOPHIL 0.1 X10E9/L Normal 0.0-0.2 [facility] Comment on above: Performed By: #### C BCA, PINR, 66702-4, BMP, 3040-3, 75525-5, 5643-2, LIVR, 32674-4, 99937-4, THYR, 83482-7, 37320-9 #### [facility] ([id number]) [address] [place] [address] [place] [address] ABSOLUTE NEUTROPHIL 5.5 X10E9/L Normal 1.5-6.6 [facility] Comment on above: Performed By: #### C BCA, PINR, 82513-3, BMP, 3040-3, 00784-5, 5643-2, LIVR, 96868-2, 30369-1, THYR, 38230-4, 53605-7 #### [facility] ([id number]) [address] [place] [address] [place] [address] Basophils/100 WBC (Bld) 1.0 % Normal [facility] Comment on above: Performed By: #### C BCA, PINR, 17512-1, BMP, 3040-3, 10169-1, 5643-2, LIVR, 99668-2, 38162-7, THYR, 62352-9, 84937-0 #### [facility] ([id number]) [address] [place] [address] 85766 Eosinophils (Bld) [#/Vol] 0.4 10*3/uL Normal 0.0-0.4 [facility] Comment on above: Performed By: #### C BCA, PINR, 65346-0, BMP, 3040-3, 77931-6, 5643-2, LIVR, 59363-7, 19100-5, THYR, 03550-9, 26730-6 #### [facility] ([id number]) [address] [place] [address] 35584 Eosinophils/100 WBC (Bld) 4.2 % Normal [facility] Comment on above: Performed By: #### C BCA, PINR, 65613-3, BMP, 3040-3, 12385-7, 5643-2, LIVR, 04670-9, 78293-3, THYR, 76665-5, 99692-9 #### [facility] ([id number]) [address] [place] [address] [place] [address] Erythrocyte distribution width (RBC) [Ratio] 17.9 % High 11.5-15.0 [facility] Comment on above: Performed By: #### C BCA, PINR, 63566-7, BMP, 3040-3, 92541-1, 5643-2, LIVR, 82720-8, 76907-3, THYR, 30754-8, 46402-0 #### [facility] ([id number]) [address] [place] [address] [place] [address] Hematocrit (Bld) [Volume fraction] 36.0 % Low 39-49 [facility] Comment on above: Performed By: #### C BCA, PINR, 96311-9, BMP, 3040-3, 77853-3, 5643-2, LIVR, 58794-3, 73387-3, THYR, 87305-3, 41387-1 #### [facility] ([id number]) [address] [place] [address] [place] [address] Hemoglobin (Bld) [Mass/Vol] 12.4 g/dL Low 13.0-17.0 [facility] Comment on above: Performed By: #### C BCA, PINR, 38063-9, BMP, 3040-3, 66656-2, 5643-2, LIVR, 35089-6, 75403-3, THYR, 77998-9, 30706-4 #### [facility] ([id number]) [address] [place] [address] 42175 Lymphocytes (Bld) [#/Vol] 1.9 10*3/uL Normal 1.0-3.5 [facility] Comment on above: Performed By: #### C BCA, PINR, 29536-9, BMP, 3040-3, 06192-9, 5643-2, LIVR, 09480-3, 79405-9, THYR, 10687-6, 73514-6 #### [facility] ([id number]) [address] [place] [address] 85720 Lymphocytes/100 WBC (Bld) 22.2 % Normal [facility] Comment on above: Performed By: #### C BCA, PINR, 63414-7, BMP, 3040-3, 84679-4, 5643-2, LIVR, 82661-3, 24669-0, THYR, 67515-5, 04474-9 #### [facility] ([id number]) [address] [place] [address] 24505 MCH (RBC) [Entitic mass] 27.5 pg Normal 27-34 [facility] Comment on above: Performed By: #### C BCA, PINR, 10354-8, BMP, 3040-3, 30056-8, 5643-2, LIVR, 65144-4, 88881-0, THYR, 45910-9, 18978-3 #### [facility] ([id number]) [address] [place] [address] 63334 MCHC (RBC) [Mass/Vol] 34.6 g/dL Normal 32-36 [facility] Comment on above: Performed By: #### C BCA, PINR, 14125-6, BMP, 3040-3, 68433-6, 5643-2, LIVR, 48347-2, 27137-8, THYR, 60400-6, 80892-5 #### [facility] ([id number]) [address] [place] [address] 75354 MCV (RBC) [Entitic vol] 80 fL Normal 80-100 [facility] Comment on above: Performed By: #### C BCA, PINR, 72138-8, BMP, 3040-3, 51213-4, 5643-2, LIVR, 46185-9, 88126-3, THYR, 04745-4, 67216-2 #### [facility] ([id number]) [address] [place] [address] 27016 Monocytes (Bld) [#/Vol] 0.6 10*3/uL Normal 0-0.9 [facility] Comment on above: Performed By: #### C BCA, PINR, 09514-9, BMP, 3040-3, 75057-9, 5643-2, LIVR, 59944-2, 08186-4, THYR, 37630-7, 23903-1 #### [facility] ([id number]) [address] [place] [address] 43240 Monocytes/100 WBC (Bld) 7.7 % Normal [facility] Comment on above: Performed By: #### C BCA, PINR, 83846-1, BMP, 3040-3, 24935-4, 5643-2, LIVR, 95405-5, 95905-4, THYR, 68289-6, 02301-6 #### [facility] ([id number]) [address] [place] [address] 64734 Neutrophils/100 WBC (Bld) 64.9 % Normal [facility] Comment on above: Performed By: #### C BCA, PINR, 54072-9, BMP, 3040-3, 89417-4, 5643-2, LIVR, 72125-6, 62544-5, THYR, 13577-8, 84793-7 #### [facility] ([id number]) [address] [place] [address] 05517 Platelet mean volume (Bld) [Entitic vol] 7.6 fL Normal 7-12 [facility] Comment on above: Performed By: #### C BCA, PINR, 78433-8, BMP, 3040-3, 83716-5, 5643-2, LIVR, 69231-9, 65155-3, THYR, 61750-7, 02835-9 #### [facility] ([id number]) [address] [place] [address] 40029 Platelets (Bld) [#/Vol] 324 10*3/uL Normal 150-450 [facility] Comment on above: Performed By: #### C BCA, PINR, 19677-5, BMP, 3040-3, 73761-7, 5643-2, LIVR, 30103-4, 32008-2, THYR, 48025-0, 23725-3 #### [facility] ([id number]) [address] [place] [address] [place] [address] RBC COUNT 4.53 X10E12/L Normal 4.10-5.70 [facility] Comment on above: Performed By: #### C BCA, PINR, 26997-5, BMP, 3040-3, 84386-1, 5643-2, LIVR, 94930-5, 34375-7, THYR, 54429-9, 23847-8 #### [facility] ([id number]) [address] [place] [address] [place] [address] WBC (Bld) [#/Vol] 8.4 10*3/uL Normal 4.0-11.0 [facility] Comment on above: Performed By: #### C BCA, PINR, 35265-7, BMP, 3040-3, 05812-0, 5643-2, LIVR, 80683-7, 60569-2, THYR, 09192-5, 55512-5 #### [facility] ([id number]) [address] [place] [address], [place] [address] CT ABDOMEN AND PELVIS WO CON Ton [...] Chris MD on 11/04/2023 3:05 PM Normal [facility] URINE CULTUREon 11-04-2023 Bacteria identified Cx Nom (U) CULTURE RESULTS MULTIPLE SPECIES PRESENT. PROBABLE COLLECTION CONTAMINATION. SUGGEST REPEAT SPECIMEN. Normal [facility] Comment on above: Performed By: #### C BCA, PINR, 59431-1, BMP, 3040-3, 02669-0, 5643-2, LIVR, 60200-5, 05854-6, THYR, 39592-9, 77916-4 #### [facility] ([id number]) [address] [place] [address], [place] [address] URN MACROSCOPIC NURon 2023 BILIRUBIN TORRES Negative Normal NEG [facility] Comment on above: Performed By: #### C BCA, PINR, 23020-6, BMP, 3040-3, 05461-0, 5643-2, LIVR, 91218-5, 61030-3, THYR, 40397-0, 26293-4 #### [facility] ([id number]) [address] [place] [address] [place] [address] BLOOD/HGB TORRES Large Abnormal NEG [facility] Comment on above: Performed By: #### C BCA, PINR, 85339-6, BMP, 3040-3, 15960-3, 5643-2, LIVR, 54517-9, 79802-1, THYR, 33716-2, 29756-0 #### [facility] ([id number]) [address] [place] [address] [place] [address] GLUCOSE TORRES Negative Normal NEG [facility] Comment on above: Performed By: #### C BCA, PINR, 87611-4, BMP, 3040-3, 97909-1, 5643-2, LIVR, 58882-0, 19069-8, THYR, 55251-3, 25714-4 #### [facility] ([id number]) [address] [place] [address] [place] [address] KETONES TORRES Negative Normal NEG [facility] Comment on above: Performed By: #### C BCA, PINR, 59733-9, BMP, 3040-3, 03156-5, 5643-2, LIVR, 91771-7, 02319-4, THYR, 17205-7, 76092-6 #### [facility] ([id number]) [address] [place] [address] 67284 LEUKOCYTE ESTERASE TORRES Small Abnormal NEG [facility] Comment on above: Performed By: #### C BCA, PINR, 87183-2, BMP, 3040-3, 71076-0, 5643-2, LIVR, 56429-3, 29012-5, THYR, 89830-0, 40233-7 #### [facility] ([id number]) [address] [place] [address] 85749 NITRITE TORRES Negative Normal NEG [facility] Comment on above: Performed By: #### C BCA, PINR, 83090-6, BMP, 3040-3, 20757-1, 5643-2, LIVR, 83707-6, 16447-1, THYR, 32125-9, 69347-7 #### [facility] ([id number]) [address] [place] [address] 40962 PH TORRES 8.0 Normal 5.0-8.5 [facility] Comment on above: Performed By: #### C BCA, PINR, 44024-8, BMP, 3040-3, 63913-1, 5643-2, LIVR, 28545-3, 03937-0, THYR, 24711-2, 53817-2 #### [facility] ([id number]) [address] [place] [address] 83238 PROTEIN TORRES 100 mg/dL Abnormal NEG [facility] Comment on above: Performed By: #### C BCA, PINR, 83980-6, BMP, 3040-3, 39985-8, 5643-2, LIVR, 53763-9, 28267-8, THYR, 46863-4, 43952-6 #### [facility] ([id number]) [address] [place] [address] [place] [address] SPECIFIC GRAVITY TORRES 1.015 Normal 1.003-1.035 [facility] Comment on above: Performed By: #### C BCA, PINR, 38224-3, BMP, 3040-3, 08459-2, 5643-2, LIVR, 37323-5, 02184-4, THYR, 64379-1, 97011-3 #### [facility] ([id number]) [address] [place] [address] [place] [address] UROBILINOGEN TORRES 0.2 eu/dL Normal <1.1 [facility] Comment on above: Performed By: #### C BCA, PINR, 31021-3, BMP, 3040-3, 99218-3, 5643-2, LIVR, 82583-2, 53605-3, THYR, 18335-6, 76666-4 #### [facility] ([id number]) [address] [place] [address] [place] [address] CBC AND AUTO DIFFon 10-29-19 24 ABSOLUTE BASOPHIL 0.0 X10E9/L Normal 0.0-0.2 [facility] Comment on above: Performed By: #### C BCA, PINR, 94828-4, BMP, 3040-3, 78903-8, 5643-2, LIVR, 47325-0, 01076-7, THYR, 94170-0, 75716-9 #### [facility] ([id number]) [address] [place] [address], [place] [address] ABSOLUTE NEUTROPHIL 7.4 X10E9/L High 1.5-6.[address] [facility] Comment on above: Performed By: #### C BCA, PINR, 89972-3, BMP, 3040-3, 52448-4, 5643-2, LIVR, 16268-9, 69708-4, THYR, 85146-5, 88834-7 #### [facility] ([id number]) [address] [place] [address] 09630 Basophils/100 WBC (Bld) 0.3 % Normal [facility] Comment on above: Performed By: #### C BCA, PINR, 96739-7, BMP, 3040-3, 22850-7, 5643-2, LIVR, 43464-3, 54278-0, THYR, 23894-3, 30854-4 #### [facility] ([id number]) [address] [place] [address] 21510 Eosinophils (Bld) [#/Vol] 0.3 10*3/uL Normal 0.0-0.4 [facility] Comment on above: Performed By: #### C BCA, PINR, 05006-8, BMP, 3040-3, 76479-7, 5643-2, LIVR, 54757-0, 31649-7, THYR, 57649-4, 05137-1 #### [facility] ([id number]) [address] [place] [address] 08635 Eosinophils/100 WBC (Bld) 3.1 % Normal [facility] Comment on above: Performed By: #### C BCA, PINR, 58728-1, BMP, 3040-3, 78700-5, 5643-2, LIVR, 87089-5, 96810-2, THYR, 07731-0, 15391-8 #### [facility] ([id number]) [address] [place] [address] [place] [address] Erythrocyte distribution width (RBC) [Ratio] 18.1 % High 11.5-15.0 [facility] Comment on above: Performed By: #### C BCA, PINR, 01948-8, BMP, 3040-3, 61737-6, 5643-2, LIVR, 94803-4, 32875-9, THYR, 17321-5, 22231-0 #### [facility] ([id number]) [address] [place] [address] 94676 Hematocrit (Bld) [Volume fraction] 35.0 % Low 39-49 [facility] Comment on above: Performed By: #### C BCA, PINR, 99267-7, BMP, 3040-3, 06422-4, 5643-2, LIVR, 20490-1, 50372-0, THYR, 64972-1, 39894-7 #### [facility] ([id number]) [address] [place] [address] 06200 Hemoglobin (Bld) [Mass/Vol] 11.9 g/dL Low 13.0-17.0 [facility] Comment on above: Performed By: #### C BCA, PINR, 93067-1, BMP, 3040-3, 81098-0, 5643-2, LIVR, 64939-3, 94746-1, THYR, 59810-9, 47683-1 #### [facility] ([id number]) [address] [place] [address] 43584 Lymphocytes (Bld) [#/Vol] 1.3 10*3/uL Normal 1.0-3.5 [facility] Comment on above: Performed By: #### C BCA, PINR, 12888-2, BMP, 3040-3, 21129-8, 5643-2, LIVR, 48423-4, 80719-4, THYR, 19698-6, 93455-3 #### [facility] ([id number]) [address] [place] [address] 72204 Lymphocytes/100 WBC (Bld) 13.1 % Normal [facility] Comment on above: Performed By: #### C BCA, PINR, 93670-9, BMP, 3040-3, 67294-2, 5643-2, LIVR, 04714-2, 57283-3, THYR, 19219-3, 65700-8 #### [facility] ([id number]) [address] [place] [address] [place] [address] MCH (RBC) [Entitic mass] 27.2 pg Normal 27-34 [facility] Comment on above: Performed By: #### C BCA, PINR, 01665-2, BMP, 3040-3, 93405-4, 5643-2, LIVR, 83378-9, 68554-7, THYR, 40500-9, 23139-3 #### [facility] ([id number]) [address] [place] [address] [place] [address] MCHC (RBC) [Mass/Vol] 34.0 g/dL Normal 32-36 [facility] Comment on above: Performed By: #### C BCA, PINR, 83353-0, BMP, 3040-3, 63129-8, 5643-2, LIVR, 99298-3, 85616-3, THYR, 62452-3, 40212-9 #### [facility] ([id number]) [address] [place] [address] [place] [address] MCV (RBC) [Entitic vol] 80 fL Normal 80-100 [facility] Comment on above: Performed By: #### C BCA, PINR, 60893-0, BMP, 3040-3, 19680-1, 5643-2, LIVR, 05444-6, 85366-2, THYR, 43859-8, 32335-0 #### [facility] ([id number]) [address] [place] [address] 66041 Monocytes (Bld) [#/Vol] 0.6 10*3/uL Normal 0-0.9 [facility] Comment on above: Performed By: #### C BCA, PINR, 94706-8, BMP, 3040-3, 36176-1, 5643-2, LIVR, 89999-3, 37166-6, THYR, 30080-5, 40565-1 #### [facility] ([id number]) [address] [place] [address] 26652 Monocytes/100 WBC (Bld) 6.3 % Normal [facility] Comment on above: Performed By: #### C BCA, PINR, 65483-2, BMP, 3040-3, 05909-8, 5643-2, LIVR, 25899-1, 85102-8, THYR, 28505-9, 20289-7 #### [facility] ([id number]) [address] [place] [address] 88347 Neutrophils/100 WBC (Bld) 77.2 % Normal [facility] Comment on above: Performed By: #### C BCA, PINR, 61311-5, BMP, 3040-3, 59445-4, 5643-2, LIVR, 82099-7, 24513-4, THYR, 07257-5, 73224-7 #### [facility] ([id number]) [address] [place] [address] [place] [address] Platelet mean volume (Bld) [Entitic vol] 7.4 fL Normal 7-12 [facility] Comment on above: Performed By: #### C BCA, PINR, 76144-3, BMP, 3040-3, 09681-6, 5643-2, LIVR, 56112-0, 81272-0, THYR, 12298-5, 63248-8 #### [facility] ([id number]) [address] [place] [address] 99510 Platelets (Bld) [#/Vol] 319 10*3/uL Normal 150-450 [facility] Comment on above: Performed By: #### C BCA, PINR, 06826-1, BMP, 3040-3, 05151-2, 5643-2, LIVR, 04756-8, 45671-9, THYR, 33732-3, 42072-9 #### [facility] ([id number]) [address] [place] [address] 11566 RBC COUNT 4.38 X10E12/L Normal 4.10-5.70 [facility] Comment on above: Performed By: #### C BCA, PINR, 93623-1, BMP, 3040-3, 90141-8, 5643-2, LIVR, 41353-9, 54730-3, THYR, 97736-9, 07256-3 #### [facility] ([id number]) [address] [place] [address] 67435 WBC (Bld) [#/Vol] 9.6 10*3/uL Normal 4.0-11.0 [facility] Comment on above: Performed By: #### C BCA, PINR, 44286-7, BMP, 3040-3, 63682-7, 5643-2, LIVR, 43248-9, 12699-7, THYR, 50831-6, 76205-9 #### [facility] ([id number]) [address] [place] [address] 53791 COMPREHENSIVE METABOLIC PANE [facility] 10-29-2023 Albumin [Mass/Vol] 3.8 g/dL Normal 3.2-5.3 [facility] Comment on above: Performed By: #### C BCA, PINR, 87843-9, BMP, 3040-3, 93805-1, 5643-2, LIVR, 45574-7, 10182-8, THYR, 26250-0, 48587-3 #### [facility] ([id number]) [address] [place] [address] 07379 ALP [Catalytic activity/Vol] 57 U/L Normal 39-130 [facility] Comment on above: Performed By: #### C BCA, PINR, 66226-8, BMP, 3040-3, 65280-2, 5643-2, LIVR, 43407-9, 66645-9, THYR, 21542-6, 61040-7 #### [facility] ([id number]) [address] [place] [address] 62113 ALT [Catalytic activity/Vol] 30 U/L Normal 0-40 [facility] Comment on above: Performed By: #### C BCA, PINR, 83497-1, BMP, 3040-3, 45597-6, 5643-2, LIVR, 32722-3, 84320-8, THYR, 81110-9, 96724-0 #### [facility] ([id number]) [address] [place] [address] 78785 Anion gap [Moles/Vol] 13 mmol/L Normal 5-15 [facility] Comment on above: Performed By: #### C BCA, PINR, 70451-1, BMP, 3040-3, 74842-9, 5643-2, LIVR, 03644-4, 97558-4, THYR, 17665-2, 80597-2 #### [facility] ([id number]) [address] [place] [address] 86668 AST [Catalytic activity/Vol] 22 U/L Normal 0-41 [facility] Comment on above: Performed By: #### C BCA, PINR, 20584-8, BMP, 3040-3, 52084-9, 5643-2, LIVR, 76539-5, 96551-7, THYR, 52918-0, 00988-6 #### [facility] ([id number]) [address] [place] [address] 72003 Bilirubin [Mass/Vol] 0.8 mg/dL Normal 0.3-1.2 [facility] Comment on above: Performed By: #### C BCA, PINR, 39271-6, BMP, 3040-3, 92291-8, 5643-2, LIVR, 02786-9, 29941-7, THYR, 24390-6, 45008-1 #### [facility] ([id number]) [address] [place] [address] 27014 Calcium [Mass/Vol] 9.5 mg/dL Normal 8.5-10.5 [facility] Comment on above: Performed By: #### C BCA, PINR, 15606-8, BMP, 3040-3, 65867-7, 5643-2, LIVR, 08823-9, 46157-1, THYR, 08463-1, 93004-4 #### [facility] ([id number]) [address] [place] [address] 53867 Chloride [Moles/Vol] 102 mmol/L Normal 98-109 [facility] Comment on above: Performed By: #### C BCA, PINR, 13730-5, BMP, 3040-3, 06390-8, 5643-2, LIVR, 51463-8, 66359-2, THYR, 10137-8, 95276-1 #### [facility] ([id number]) [address] [place] [address] 86314 CO2 [Moles/Vol] 21 mmol/L Low 22-32 [facility] Comment on above: Performed By: #### C BCA, PINR, 80717-0, BMP, 3040-3, 75952-8, 5643-2, LIVR, 33443-1, 91550-7, THYR, 89218-2, 35010-7 #### [facility] ([id number]) [address] [place] [address] 50785 Creatinine [Mass/Vol] 1.14 mg/dL Normal 0.70-1.20 [facility] Comment on above: Result Comment: METH OD TRACEABLE TO IDMS STANDARD Performed By: #### C BCA, PINR, 28502-3, BMP, 3040-3, 95026-4, 5643-2, LIVR, 06973-5, 59494-8, THYR, 00366-9, 85145-4 #### [facility] ([id number]) [address] [place] [address] 90922 GFR/1.73 sq M.predicted among non-blacks MDRD (S/P/Bld) [Vol rate/Area] 67 mL/min/{1.73_m2} Normal >59 [facility] Comment on above: Result Comment: Reported eGFR is based on the CKD-EPI 2020 equation that does not use a race coefficient. Performed By: #### C BCA, PINR, 01418-1, BMP, 3040-3, 17585-6, 5643-2, LIVR, 86137-8, 64090-2, THYR, 06452-7, 86912-0 #### [facility] ([id number]) [address] [place] [address] 13194 Glucose [Mass/Vol] 172 mg/dL High 65-99 [facility] Comment on above: Performed By: #### C BCA, PINR, 47105-6, BMP, 3040-3, 38825-6, 5643-2, LIVR, 89159-1, 03757-6, THYR, 37823-1, 71489-2 #### [facility] ([id number]) [address] [place] [address] 30288 Potassium [Moles/Vol] 3.7 mmol/L Normal 3.5-5.0 [facility] Comment on above: Performed By: #### C BCA, PINR, 80840-3, BMP, 3040-3, 45433-3, 5643-2, LIVR, 91657-7, 78179-2, THYR, 17184-9, 02107-4 #### [facility] ([id number]) [address] [place] [address] 95073 Protein [Mass/Vol] 7.9 g/dL Normal 6.0-8.0 [facility] Comment on above: Performed By: #### C BCA, PINR, 55038-7, BMP, 3040-3, 55963-7, 5643-2, LIVR, 92560-4, 04497-7, THYR, 13440-2, 87394-7 #### [facility] ([id number]) [address] [place] [address] Sodium [Moles/Vol] 136 mmol/L Normal 134-146 [facility] Comment on above: Performed By: #### C BCA, PINR, 67635-7, BMP, 3040-3, 78810-0, 5643-2, LIVR, 60493-6, 74521-7, THYR, 06195-0, 44047-1 #### [facility] ([id number]) [address] [place] [address] 77167 Urea nitrogen [Mass/Vol] 22 mg/dL Normal 5-27 [facility] Comment on above: Performed By: #### C BCA, PINR, 04223-6, BMP, 3040-3, 60816-5, 5643-2, LIVR, 87031-4, 89661-5, THYR, 15236-7, 44537-1 #### [facility] ([id number]) [address] [place] [address] ABDOMEN AND PELVIS W CONT on [...] Ochoa MD on 10/29/2023 1:22 AM Normal [facility] LIPASEon 10-29-2023 Lipase [Catalytic activity/Vol] 55 U/L High 17-40 [facility] Comment on above: Performed By: #### C BCA, PINR, 46104-0, BMP, 3040-3, 91889-4, 5643-2, LIVR, 25828-2, 70681-3, THYR, 33672-6, 91881-5 #### [facility] ([id number]) [address] [place] [address] 25471 Lactate (P zane) [Moles/Vol]o n 10-29-2023 Lactate [Moles/Vol] 3.1 mmol/L High 0.4-2.0 [facility] Comment on above: Performed By: #### C BCA, PINR, 65852-4, BMP, 3040-3, 04041-3, 5643-2, LIVR, 77593-2, 72542-0, THYR, 53948-2, 99961-8 #### [facility] ([id number]) [address] [place] [address] 29594 LACTATE W/REFLEX 3.5 mmol/L High 0.4-2.0 [facility] Comment on above: Performed By: #### C BCA, PINR, 04554-2, BMP, 3040-3, 28913-8, 5643-2, LIVR, 07348-9, 21326-2, THYR, 71909-5, 00665-5 #### [facility] ([id number]) [address] [place] [address], [place] [address] XR ABDOMEN AP 1 VWon 024 XR [...] Ochoa MD on 10/28/2023 11:53 PM Normal [facility] US ankle/arm indiceson 10-12 US ankle/arm indices [facility] [address] [place] [address] Ultrasound Report Signed Patient: Gagandeep Ahn MR#: [id number] 32 : 1950 Acct:[id number] Age/Sex: 72 / M ADM Date: 10/07/23 Loc: [facility] Room: Type: [facility] CLI Attending Dr: Steven Horta MD Ordering Provider: [...] Steven Horta MD10/13/2023 8:55 AM Dictation Location: [place] [address] Tech: Maribel Rioser Transcribed By: [facility] 10/13/23854 Dictated By: Steven Horta MD 10/13/2354 Signed By: 10/13/23854 Normal [facility] COMPREHENSIVE METABOLIC PANE Nilson 10-09-2023 Albumin [Mass/Vol] 3.2 g/dL Normal 3.2-5.3 [facility] Comment on above: Performed By: #### C BCA, PINR, 22305-0, BMP, 3040-3, 08187-9, 5643-2, LIVR, 26027-4, 22732-0, THYR, 97969-4, 84704-8 #### [facility] ([id number]) [address] [place] [address] 82424 ALP [Catalytic activity/Vol] 57 U/L Normal 39-130 [facility] Comment on above: Performed By: #### C BCA, PINR, 59440-1, BMP, 3040-3, 09083-8, 5643-2, LIVR, 60528-6, 33352-0, THYR, 92037-8, 69240-0 #### [facility] ([id number]) [address] [place] [address] 57765 ALT [Catalytic activity/Vol] 13 U/L Normal 0-40 [facility] Comment on above: Performed By: #### C BCA, PINR, 22528-9, BMP, 3040-3, 38947-8, 5643-2, LIVR, 55697-6, 13584-2, THYR, 93383-2, 10388-1 #### [facility] ([id number]) [address] [place] [address] 06052 Anion gap [Moles/Vol] 11 mmol/L Normal 5-15 [facility] Comment on above: Performed By: #### C BCA, PINR, 28844-9, BMP, 3040-3, 40514-8, 5643-2, LIVR, 65076-6, 49722-7, THYR, 30539-5, 58221-4 #### [facility] ([id number]) [address] [place] [address] 31204 AST [Catalytic activity/Vol] 16 U/L Normal 0-41 [facility] Comment on above: Performed By: #### C BCA, PINR, 92011-4, BMP, 3040-3, 13853-6, 5643-2, LIVR, 39489-9, 33784-8, THYR, 91857-2, 56429-7 #### [facility] ([id number]) [address] [place] [address] 40220 Bilirubin [Mass/Vol] 0.9 mg/dL Normal 0.3-1.2 [facility] Comment on above: Performed By: #### C BCA, PINR, 46874-2, BMP, 3040-3, 23417-8, 5643-2, LIVR, 05161-2, 03129-2, THYR, 03457-8, 77967-5 #### [facility] ([id number]) [address] [place] [address] [place] [address] Calcium [Mass/Vol] 8.3 mg/dL Low 8.5-10.5 [facility] Comment on above: Performed By: #### C BCA, PINR, 93084-4, BMP, 3040-3, 61251-0, 5643-2, LIVR, 23850-7, 53559-6, THYR, 34352-8, 93776-3 #### [facility] ([id number]) [address] [place] [address] Chloride [Moles/Vol] 103 mmol/L Normal 98-109 [facility] Comment on above: Performed By: #### C BCA, PINR, 13171-9, BMP, 3040-3, 97137-3, 5643-2, LIVR, 51119-1, 14753-0, THYR, 13817-4, 90613-6 #### [facility] ([id number]) [address] [place] [address] 08595 CO2 [Moles/Vol] 21 mmol/L Low 22-32 [facility] Comment on above: Performed By: #### C BCA, PINR, 89606-6, BMP, 3040-3, 85306-6, 5643-2, LIVR, 40702-8, 41252-8, THYR, 08976-5, 23989-9 #### [facility] ([id number]) [address] [place] [address] 18724 Creatinine [Mass/Vol] 0.92 mg/dL Normal 0.70-1.20 [facility] Comment on above: Result Comment: METH OD TRACEABLE TO IDMS STANDARD Performed By: #### C BCA, PINR, 31871-2, BMP, 3040-3, 96396-3, 5643-2, LIVR, 81732-5, 10227-3, THYR, 35847-0, 77084-1 #### [facility] ([id number]) [address] [place] [address] 79727 GFR/1.73 sq M.predicted among non-blacks MDRD (S/P/Bld) [Vol rate/Area] 87 mL/min/{1.73_m2} Normal >59 [facility] Comment on above: Result Comment: Reported eGFR is based on the CKD-EPI 2020 equation that does not use a race coefficient. Performed By: #### C BCA, PINR, 60446-4, BMP, 3040-3, 26571-5, 5643-2, LIVR, 77161-8, 77326-7, THYR, 60965-4, 27021-9 #### [facility] ([id number]) [address] [place] [address], [place] [address] Glucose [Mass/Vol] 138 mg/dL High 65-99 [facility] Comment on above: Performed By: #### C BCA, PINR, 55118-9, BMP, 3040-3, 90987-4, 5643-2, LIVR, 01833-4, 13759-3, THYR, 97004-0, 05391-9 #### [facility] ([id number]) [address] [place] [address] [place] [address] Potassium [Moles/Vol] 3.1 mmol/L Low 3.5-5.0 [facility] Comment on above: Performed By: #### C BCA, PINR, 40562-0, BMP, 3040-3, 90868-1, 5643-2, LIVR, 95254-4, 74603-4, THYR, 67836-6, 49001-2 #### [facility] ([id number]) [address] [place] [address] [place] [address] Protein [Mass/Vol] 6.7 g/dL Normal 6.0-8.0 [facility] Comment on above: Performed By: #### C BCA, PINR, 35112-2, BMP, 3040-3, 43780-2, 5643-2, LIVR, 60755-7, 03283-0, THYR, 06451-8, 60956-1 #### [facility] ([id number]) [address] [place] [address], [place] [address] Sodium [Moles/Vol] 135 mmol/L Normal 134-146 [facility] Comment on above: Performed By: #### C BCA, PINR, 08643-1, BMP, 3040-3, 79778-5, 5643-2, LIVR, 40097-6, 57016-8, THYR, 78461-8, 77514-1 #### [facility] ([id number]) [address] [place] [address] 32335 Urea nitrogen [Mass/Vol] 28 mg/dL High 5-27 [facility] Comment on above: Performed By: #### C BCA, PINR, 92240-3, BMP, 3040-3, 40755-4, 5643-2, LIVR, 03198-5, 46385-4, THYR, 38397-0, 79449-9 #### [facility] ([id number]) [address] [place] [address] 07206 MAGNESIUMon 10-09-2023 Magnesium [Mass/Vol] 1.3 mg/dL Low 1.8-2.6 [facility] Comment on above: Performed By: #### C BCA, PINR, 86248-9, BMP, 3040-3, 14215-3, 5643-2, LIVR, 15465-1, 72582-5, THYR, 82788-7, 01917-7 #### [facility] ([id number]) [address] [place] [address] 88527 C REACTIVE PROTEINon 024 CRP [Mass/Vol] mg/L Normal 0.000-0.744 [facility] Comment on above: Performed By: #### C BCA, PINR, 57049-0, BMP, 3040-3, 28115-0, 5643-2, LIVR, 14637-6, 98353-4, THYR, 57190-2, 65027-2 #### [facility] ([id number]) [address] [place] [address] [place] [address] CBC AND AUTO DIFFon 10-08-19 24 ABSOLUTE BASOPHIL 0.0 X10E9/L Normal 0.0-0.2 [facility] Comment on above: Performed By: #### C BCA, PINR, 81219-6, BMP, 3040-3, 48777-0, 5643-2, LIVR, 47979-0, 12812-4, THYR, 27836-2, 86353-1 #### [facility] ([id number]) [address] [place] [address], [place] [address] ABSOLUTE NEUTROPHIL 8.4 X10E9/L High 1.5-6.6 [facility] Comment on above: Performed By: #### C BCA, PINR, 35402-9, BMP, 3040-3, 77095-6, 5643-2, LIVR, 51029-5, 93608-0, THYR, 87976-1, 34188-6 #### [facility] ([id number]) [address] [place] [address], [place] [address] Basophils/100 WBC (Bld) 0.4 % Normal [facility] Comment on above: Performed By: #### C BCA, PINR, 15634-5, BMP, 3040-3, 02726-1, 5643-2, LIVR, 77171-1, 94035-8, THYR, 75890-5, 67812-2 #### [facility] ([id number]) [address] [place] [address], [place] [address] Eosinophils (Bld) [#/Vol] 0.2 10*3/uL Normal 0.0-0.4 [facility] Comment on above: Performed By: #### C BCA, PINR, 11836-5, BMP, 3040-3, 20713-5, 5643-2, LIVR, 57893-0, 94495-1, THYR, 94632-5, 26113-9 #### [facility] ([id number]) [address] [place] [address], [place] [address] Eosinophils/100 WBC (Bld) 2.3 % Normal [facility] Comment on above: Performed By: #### C BCA, PINR, 28408-9, BMP, 3040-3, 84312-3, 5643-2, LIVR, 42078-9, 58171-3, THYR, 35551-5, 62022-6 #### [facility] ([id number]) [address] [place] [address] [place] [address] Erythrocyte distribution width (RBC) [Ratio] 17.0 % High 11.5-15.0 [facility] Comment on above: Performed By: #### C BCA, PINR, 36358-3, BMP, 3040-3, 17886-2, 5643-2, LIVR, 51193-6, 45676-8, THYR, 07198-4, 59653-8 #### [facility] ([id number]) [address] [place] [address] [place] [address] Hematocrit (Bld) [Volume fraction] 36.6 % Low 39-49 [facility] Comment on above: Performed By: #### C BCA, PINR, 36271-7, BMP, 3040-3, 40233-2, 5643-2, LIVR, 62216-5, 07844-0, THYR, 34427-1, 91923-0 #### [facility] ([id number]) [address] [place] [address] [place] [address] Hemoglobin (Bld) [Mass/Vol] 12.3 g/dL Low 13.0-17.0 [facility] Comment on above: Performed By: #### C BCA, PINR, 77948-6, BMP, 3040-3, 20579-1, 5643-2, LIVR, 46329-1, 87912-9, THYR, 15375-3, 43166-1 #### [facility] ([id number]) [address] [place] [address] [place] [address] Lymphocytes (Bld) [#/Vol] 1.2 10*3/uL Normal 1.0-3.5 [facility] Comment on above: Performed By: #### C BCA, PINR, 66709-3, BMP, 3040-3, 90346-8, 5643-2, LIVR, 18865-3, 47040-1, THYR, 70196-8, 61383-5 #### [facility] ([id number]) [address] [place] [address] 97961 Lymphocytes/100 WBC (Bld) 11.6 % Normal [facility] Comment on above: Performed By: #### C BCA, PINR, 24361-3, BMP, 3040-3, 37369-4, 5643-2, LIVR, 38808-5, 26005-1, THYR, 83480-6, 66863-2 #### [facility] ([id number]) [address] [place] [address] 43761 MCH (RBC) [Entitic mass] 26.9 pg Low 27-34 [facility] Comment on above: Performed By: #### C BCA, PINR, 88307-6, BMP, 3040-3, 45374-4, 5643-2, LIVR, 23009-2, 38220-8, THYR, 36715-4, 69677-3 #### [facility] ([id number]) [address] [place] [address] [place] [address] MCHC (RBC) [Mass/Vol] 33.7 g/dL Normal 32-36 [facility] Comment on above: Performed By: #### C BCA, PINR, 59103-8, BMP, 3040-3, 49039-0, 5643-2, LIVR, 93339-9, 24879-0, THYR, 82555-2, 39422-4 #### [facility] ([id number]) [address] [place] [address], [place] [address] MCV (RBC) [Entitic vol] 80 fL Normal 80-100 [facility] Comment on above: Performed By: #### C BCA, PINR, 89194-6, BMP, 3040-3, 34141-1, 5643-2, LIVR, 80091-0, 59514-3, THYR, 19336-0, 54656-7 #### [facility] ([id number]) [address] [place] [address] 16150 Monocytes (Bld) [#/Vol] 0.7 10*3/uL Normal 0-0.9 [facility] Comment on above: Performed By: #### C BCA, PINR, 69112-8, BMP, 3040-3, 28046-2, 5643-2, LIVR, 26179-4, 22490-5, THYR, 27771-0, 17230-1 #### [facility] ([id number]) [address] [place] [address] 81219 Monocytes/100 WBC (Bld) 6.7 % Normal [facility] Comment on above: Performed By: #### C BCA, PINR, 76276-7, BMP, 3040-3, 76916-9, 5643-2, LIVR, 96887-2, 92978-9, THYR, 54002-9, 59224-1 #### [facility] ([id number]) [address] [place] [address] [place] [address] Neutrophils/100 WBC (Bld) 79.0 % Normal [facility] Comment on above: Performed By: #### C BCA, PINR, 09710-7, BMP, 3040-3, 29714-8, 5643-2, LIVR, 16800-4, 98669-4, THYR, 42168-6, 88366-2 #### [facility] ([id number]) [address] [place] [address] [place] [address] Platelet mean volume (Bld) [Entitic vol] 6.6 fL Low 7-12 [facility] Comment on above: Performed By: #### C BCA, PINR, 98971-5, BMP, 3040-3, 29327-1, 5643-2, LIVR, 84672-8, 40862-5, THYR, 62812-6, 32170-0 #### [facility] ([id number]) [address] [place] [address] [place] [address] Platelets (Bld) [#/Vol] 397 10*3/uL Normal 150-450 [facility] Comment on above: Performed By: #### C BCA, PINR, 14302-3, BMP, 3040-3, 45497-0, 5643-2, LIVR, 90015-6, 02334-2, THYR, 22104-3, 00267-2 #### [facility] ([id number]) [address] [place] [address] [place] [address] RBC COUNT 4.58 X10E12/L Normal 4.10-5.70 [facility] Comment on above: Performed By: #### C BCA, PINR, 46157-6, BMP, 3040-3, 20261-8, 5643-2, LIVR, 21905-5, 44151-6, THYR, 24291-6, 34151-0 #### [facility] ([id number]) [address] [place] [address] [place] [address] WBC (Bld) [#/Vol] 10.7 10*3/uL Normal 4.0-11.0 [facility] Comment on above: Performed By: #### C BCA, PINR, 15672-1, BMP, 3040-3, 73918-4, 5643-2, LIVR, 47858-7, 30192-5, THYR, 62640-1, 25757-5 #### [facility] ([id number]) [address] [place] [address] [place] [address] COMPREHENSIVE METABOLIC PANE Nilson 10-08-2023 Albumin [Mass/Vol] 3.7 g/dL Normal 3.2-5.3 [facility] Comment on above: Performed By: #### C BCA, PINR, 52377-3, BMP, 3040-3, 54004-0, 5643-2, LIVR, 83282-1, 01557-0, THYR, 98915-0, 23715-9 #### [facility] ([id number]) [address] [place] [address] [place] [address] ALP [Catalytic activity/Vol] 66 U/L Normal 39-130 [facility] Comment on above: Performed By: #### C BCA, PINR, 45155-8, BMP, 3040-3, 32395-6, 5643-2, LIVR, 81111-9, 38341-5, THYR, 33321-1, 81837-5 #### [facility] ([id number]) [address] [place] [address] [place] [address] ALT [Catalytic activity/Vol] 14 U/L Normal 0-40 [facility] Comment on above: Performed By: #### C BCA, PINR, 09270-3, BMP, 3040-3, 08984-8, 5643-2, LIVR, 94404-2, 05413-9, THYR, 95667-3, 08322-2 #### [facility] ([id number]) [address] [place] [address] [place] [address] Anion gap [Moles/Vol] 12 mmol/L Normal 5-15 [facility] Comment on above: Performed By: #### C BCA, PINR, 46011-7, BMP, 3040-3, 23948-4, 5643-2, LIVR, 53032-9, 28761-8, THYR, 56075-6, 62710-0 #### [facility] ([id number]) [address] [place] [address], [place] [address] AST [Catalytic activity/Vol] 17 U/L Normal 0-41 [facility] Comment on above: Performed By: #### C BCA, PINR, 16945-2, BMP, 3040-3, 76238-9, 5643-2, LIVR, 69312-6, 48253-2, THYR, 28903-9, 28302-4 #### [facility] ([id number]) [address] [place] [address], [place] [address] Bilirubin [Mass/Vol] 1.0 mg/dL Normal 0.3-1.2 [facility] Comment on above: Performed By: #### C BCA, PINR, 79738-9, BMP, 3040-3, 09681-4, 5643-2, LIVR, 27242-9, 53285-6, THYR, 48646-9, 88597-3 #### [facility] ([id number]) [address] [place] [address], [place] [address] Calcium [Mass/Vol] 9.2 mg/dL Normal 8.5-10.5 [facility] Comment on above: Performed By: #### C BCA, PINR, 68480-7, BMP, 3040-3, 47299-4, 5643-2, LIVR, 11777-5, 78693-2, THYR, 12044-9, 02590-1 #### [facility] ([id number]) [address] [place] [address], [place] [address] Chloride [Moles/Vol] 104 mmol/L Normal 98-109 [facility] Comment on above: Performed By: #### C BCA, PINR, 83654-9, BMP, 3040-3, 89111-6, 5643-2, LIVR, 22509-0, 27995-6, THYR, 07674-1, 70334-2 #### [facility] ([id number]) [address] [place] [address], [place] [address] CO2 [Moles/Vol] 20 mmol/L Low 22-32 [facility] Comment on above: Performed By: #### C BCA, PINR, 19663-2, BMP, 3040-3, 27992-1, 5643-2, LIVR, 99049-9, 02910-6, THYR, 07687-3, 34984-9 #### [facility] ([id number]) [address] [place] [address] 03566 Creatinine [Mass/Vol] 1.02 mg/dL Normal 0.70-1.20 [facility] Comment on above: Result Comment: METH OD TRACEABLE TO IDMS STANDARD Performed By: #### C BCA, PINR, 65654-1, BMP, 3040-3, 00446-7, 5643-2, LIVR, 82339-0, 20879-7, THYR, 05151-3, 13568-6 #### [facility] ([id number]) [address] [place] [address] 20016 GFR/1.73 sq M.predicted among non-blacks MDRD (S/P/Bld) [Vol rate/Area] 77 mL/min/{1.73_m2} Normal >59 [facility] Comment on above: Result Comment: Reported eGFR is based on the CKD-EPI 2020 equation that does not use a race coefficient. Performed By: #### C BCA, PINR, 92818-4, BMP, 3040-3, 92572-8, 5643-2, LIVR, 92489-8, 34365-9, THYR, 12635-4, 87699-5 #### [facility] ([id number]) [address] [place] [address] 56719 Glucose [Mass/Vol] 121 mg/dL High 65-99 [facility] Comment on above: Performed By: #### C BCA, PINR, 49921-7, BMP, 3040-3, 70844-4, 5643-2, LIVR, 22852-0, 73163-7, THYR, 28957-2, 98721-0 #### [facility] ([id number]) [address] [place] [address] 46517 Potassium [Moles/Vol] 3.5 mmol/L Normal 3.5-5.0 [facility] Comment on above: Performed By: #### C BCA, PINR, 39671-9, BMP, 3040-3, 87955-5, 5643-2, LIVR, 82909-9, 63704-2, THYR, 42214-4, 62883-9 #### [facility] ([id number]) [address] [place] [address] [place] [address] Protein [Mass/Vol] 7.8 g/dL Normal 6.0-8.0 [facility] Comment on above: Performed By: #### C BCA, PINR, 48139-7, BMP, 3040-3, 02585-2, 5643-2, LIVR, 83563-7, 90802-9, THYR, 70879-2, 19892-2 #### [facility] ([id number]) [address] [place] [address] [place] [address] Sodium [Moles/Vol] 136 mmol/L Normal 134-146 [facility] Comment on above: Performed By: #### C BCA, PINR, 55064-3, BMP, 3040-3, 39121-4, 5643-2, LIVR, 12590-8, 43491-6, THYR, 76995-6, 34603-8 #### [facility] ([id number]) [address] [place] [address] [place] [address] Urea nitrogen [Mass/Vol] 36 mg/dL High 5-27 [facility] Comment on above: Performed By: #### C BCA, PINR, 09703-8, BMP, 3040-3, 41248-4, 5643-2, LIVR, 07981-7, 82668-7, THYR, 27707-2, 37396-2 #### [facility] ([id number]) [address] [place] [address] [place] [address] MAGNESIUMon 10-08-2023 Magnesium [Mass/Vol] 1.6 mg/dL Low 1.8-2.6 [facility] Comment on above: Performed By: #### C BCA, PINR, 12975-5, BMP, 3040-3, 96408-0, 5643-2, LIVR, 68742-5, 87821-2, THYR, 04020-6, 21509-6 #### [facility] ([id number]) [address] [facility], [place] [address] SARS/FLU A+B/RSV by NAAT/Mol ecularon 10-08-2023 SARS/FLU [...] operators who are performing tests using either [employer] or [employer] systems and is limited to laboratories that [...] repeat. Fact Sheet for Healthcare Providers: https://www.fda.gov/m edia/883468/download Fact Sheet for Patients: https://www.fda.gov/m edia/442721/download Normal [facility] Comment on above: Performed By: #### C BCA, PINR, 39935-3, BMP, 3040-3, 38914-8, 5643-2, LIVR, 02792-4, 95457-0, THYR, 65666-3, 53730-8 #### [facility] ([id number]) [address] [place] [address] URINE CULTUREon 10-08-2023 Bacteria identified Cx Nom [...] F TRIMETH/SULFAMETHOXAZ OLE S <=1/19 F Susceptible [facility] Comment on above: Performed By: #### C BCA, PINR, 66924-8, BMP, 3040-3, 97921-6, 5643-2, LIVR, 63660-5, 48963-0, THYR, 35232-6, 90614-6 #### [facility] ([id number]) [address] [place] [address], [place] [address] URN MACROSCOPIC NURon 2023 BILIRUBIN TORRES Negative Normal NEG [facility] Comment on above: Performed By: #### C BCA, PINR, 15137-3, BMP, 3040-3, 61674-3, 5643-2, LIVR, 92737-1, 46802-5, THYR, 23689-4, 70043-0 #### [facility] ([id number]) [address] [place] [address] [place] [address] BLOOD/HGB TORRES Large Abnormal NEG [facility] Comment on above: Performed By: #### C BCA, PINR, 07344-3, BMP, 3040-3, 32097-5, 5643-2, LIVR, 16530-1, 94294-5, THYR, 43472-4, 02152-3 #### [facility] ([id number]) [address] [place] [address], [place] [address] GLUCOSE TORRES Negative Normal [facility] Comment on above: Performed By: #### C BCA, PINR, 94651-3, BMP, 3040-3, 90632-9, 5643-2, LIVR, 28656-8, 34132-5, THYR, 04826-9, 83709-9 #### [facility] ([id number]) [address] [place] [address], [place] [address] KETONES TORRES 15 mg/dL Abnormal NEG [facility] Comment on above: Performed By: #### C BCA, PINR, 88772-0, BMP, 3040-3, 70997-4, 5643-2, LIVR, 50997-8, 92561-2, THYR, 82391-5, 86667-7 #### [facility] ([id number]) [address] [place] [address] LEUKOCYTE ESTERASE TORRES Small Abnormal NEG [facility] Comment on above: Performed By: #### C BCA, PINR, 88024-0, BMP, 3040-3, 07133-1, 5643-2, LIVR, 85498-0, 35521-1, THYR, 28401-1, 49697-4 #### [facility] ([id number]) [address] [place] [address] NITRITE TORRES Positive Abnormal NEG [facility] Comment on above: Performed By: #### C BCA, PINR, 45401-6, BMP, 3040-3, 35839-4, 5643-2, LIVR, 33659-1, 45835-7, THYR, 88921-2, 57431-0 #### [facility] ([id number]) [address] [place] [address] PH TORRES 6.5 Normal 5.0-8.5 [facility] Comment on above: Performed By: #### C BCA, PINR, 91214-4, BMP, 3040-3, 53163-3, 5643-2, LIVR, 57281-4, 21345-4, THYR, 58259-1, 80278-4 #### [facility] ([id number]) [address] [place] [address] PROTEIN TORRES 100 mg/dL Abnormal NEG [facility] Comment on above: Performed By: #### C BCA, PINR, 17835-5, BMP, 3040-3, 88886-3, 5643-2, LIVR, 58543-6, 87211-0, THYR, 71473-6, 47700-7 #### [facility] ([id number]) [address] [place] [address] [place] [address] SPECIFIC GRAVITY TORRES >=1.030 Normal 1.003-1.[address] [facility] Comment on above: Performed By: #### C BCA, PINR, 56645-5, BMP, 3040-3, 60165-5, 5643-2, LIVR, 00749-5, 61631-1, THYR, 58761-3, 07322-2 #### [facility] ([id number]) [address] [facility], [place] [address] UROBILINOGEN TORRES 1.0 eu/dL Normal <1.1 [facility] Comment on above: Performed By: #### C BCA, PINR, 50301-2, BMP, 3040-3, 43887-6, 5643-2, LIVR, 80382-9, 23450-0, THYR, 71411-5, 96526-8 #### [facility] ([id number]) [address] [facility], [place] [address] URINE CULTUREon 09-28-2023 Bacteria identified Cx Nom (U) CULTURE RESULTS >100,000 ORGANISMS/mL KLEBSIELLA PNEUMONIAE CULTURE IN PROGRESS Abnormal [facility] Comment on above: Performed By: #### 6 30-4 #### [facility] ([id number]) [address] [place] [address], [address] [place] [address] Aerobic Cultureon 09-22-2023 Aerobic Culture ORGANISM: Enterococcus faecalis (O:ENTFAC) Quantity of Growth Moderate Growth ORGANISM: Methicillin Resis Staph Aureus (O:MRSA) Quantity of Growth Moderate Growth ORGANISM: Bacteroides fragilis (O:BACFRA) Comments Sent to for Sensitivity Testing Quantity of Growth Light [...] RESISTANT TO ALL B-LACTAM DRUGS. PERFORMED BY: [place] [address] PATHOLOGIST DOOR TO DOOR SALESPERSON LEANDRO DINERO M.D. Normal [facility] Comment on above: Performed By: #### A ERC #### [address] Gram stain for investigation of transfusion reactionOrdered By: Martha Wilkes on 09-22-2023 Microscopic observation Gram stain Nom (Unsp spec) Bacteroides fragilis [facility] Blood Urea Nitrogenon 2023 Urea nitrogen [Mass/Vol] 19 mg/dL Normal 7-25 [facility] Comment on above: Performed By: #### C REAT, BUN #### [place] [address] [place] Creatinineon 09-13-2023 Creatinine [Mass/Vol] 0.82 mg/dL Normal 0.70-1.30 [facility] Comment on above: Performed By: #### C REAT, BUN #### [place] [address] [place] Creatinine Clr Calc Pharmacy 78.09 Normal [facility] Comment on above: Result Comment: PERF ORMED BY: [place] [address] PATHOLOGIST DOOR TO DOOR SALESPERSON LEANDRO DINERO M.D. Performed By: #### C REAT, BUN #### [facility] [address] [place] [address] [place] GFR/1.73 sq M.predicted MDRD (S/P/Bld) [Vol rate/Area] mL/min/{1.73_m2} Normal [facility] Comment on above: Performed By: #### C REAT, BUN #### [address] Creatinine [Mass/volume] in Serum or PlasmaOrdered By: Steven Horta on 09-13-2023 Creatinine [Mass/Vol] 0.82 mg/dL 0.70-1.30 [facility] No Panel InformationOrdered By: Steven Horta on 09-13-2023 Estimated GFR (CKD-EPI) > 60.0 mL/Min [facility] Creatinine Clearance (Chem 78.09 [facility] Urea nitrogen [Mass/volume] in Serum or PlasmaOrdered By: Steven Horta on 09-13-2023 Urea nitrogen [Mass/Vol] 19 mg/dL 7-25 [facility] Automated erythrocytes count in urine sediment (number/area)Ordered By: Jose Enrique Almendarez on 08-28-2023 RBC Auto (Urine sed) [#/Area] 50-100 [HPF] 0-4 [facility] Automated leukocytes count i n urine sediment (number/area)Ordered By: Jose Enrique Almendarez on 08-28-2023 WBC Auto (Urine sed) [#/Area] Innumerable [HPF] 0-4 [facility] Automated urine color determ inationOrdered By: Jose Enrique Almendarez on 08-28-2023 Color (U) Dark yellow Critically abnormal Yellow [facility] Comment on above: Order Comment: Name Collection Type:: Ramos Catheter Performed By: #### A DDONUAPLUS, CUU #### [facility] [address] [place] [address] Automated urine hyaline cast s count (number/volume)Ordered By: Jose Enrique Almendarez on 08-28-2023 Hyaline casts Auto (U) [#/Vol] None seen [LPF] 0-1 [facility] Automated urine sediment sarah cium oxalate crystal count by microscopy (number/high powOrdered By: Jose Enrique Almendarez on 08-28-2023 Calcium oxalate crystals LM.HPF (Urine sed) [#/Area] 1+ [HPF] [facility] Bilirubin Test strip Ql (U)O rdered By: Jose Enrique Almendarez on 08-28-2023 Bilirubin Ql (U) Negative Negative [facility] Casts typing in urine sedime nt by light microscopyOrdered By: Jose Enrique Almendarez on 08-28-2023 Casts LM Nom (Urine sed) None seen [LPF] None Seen [facility] Dipstick and Microscopicon 0 08-28-2023 Appearance (U) Turbid Critically abnormal Clear [facility] Comment on above: Order Comment: Name Collection Type:: Ramos Catheter Performed By: #### A DDONUAPLUS, CUU #### [facility] [address] [place] [address] [place] Bacteria,Urine 4+ High None Seen [facility] Comment on above: Order Comment: Name Collection Type:: Ramos Catheter Performed By: #### A DDONUAPLUS, CUU #### [facility] [address] [place] [id number] [place] Bilirubin,Urine Negative Normal Negative [facility] Comment on above: Order Comment: Name Collection Type:: Ramos Catheter Performed By: #### A DDONUAPLUS, CUU #### [facility] [address] [place] [id number] [place] Calcium Oxalate Crystals,Urine 1+ Normal [facility] Comment on above: Order Comment: Name Collection Type:: Ramos Catheter Performed By: #### A DDONUAPLUS, CUU #### [facility] [address] [place] [id number] [place] Glucose Ql (U) Normal Normal Normal [facility] Comment on above: Order Comment: Name Collection Type:: Ramos Catheter Performed By: #### A DDONUAPLUS, CUU #### [facility] [address] [place] [address] [place] Hyaline Casts,Urine None Seen Normal 0-1 [facility] Comment on above: Order Comment: Name Collection Type:: Ramos Catheter Performed By: #### A DDONUAPLUS, CUU #### [facility] [address] [place] [address] [place] Ketones Ql (U) 1+ High Negative [facility] Comment on above: Order Comment: Name Collection Type:: Ramos Catheter Performed By: #### A DDONUAPLUS, CUU #### [place] [address] [place] Leukocyte esterase Test strip Ql (U) 4+ High Negative [facility] Comment on above: Order Comment: Name Collection Type:: Ramos Catheter Performed By: #### A DDONUAPLUS, CUU #### [place] [address] [place] Nitrite,Urine Negative Normal Negative [facility] Comment on above: Order Comment: Name Collection Type:: Ramos Catheter Performed By: #### A DDONUAPLUS, CUU #### [place] [address] [place] Occult Blood,Urine 3+ High Negative [facility] Comment on above: Order Comment: Name Collection Type:: Ramos Catheter Result Comment: PERF ORMED BY: [place] [address] PATHOLOGIST DOOR TO DOOR SALESPERSON LEANDRO DINERO M.D. Performed By: #### A DDONUAPLUS, CUU #### [place] [address] [place] Othe Crystals,Urine None Seen Normal [facility] Comment on above: Order Comment: Name Collection Type:: Ramos Catheter Performed By: #### A DDONUAPLUS, CUU #### [place] [address] [place] Other Casts,Urine None Seen Normal None Seen [facility] Comment on above: Order Comment: Name Collection Type:: Ramos Catheter Performed By: #### A DDONUAPLUS, CUU #### [address] RBC,Urine 50-100 High 0-4 [facility] Comment on above: Order Comment: Name Collection Type:: Ramos Catheter Performed By: #### A DDONUAPLUS, CUU #### [address] Specificy [place],Urine 1.029 Normal 1.001-1.030 [facility] Comment on above: Order Comment: Name Collection Type:: Ramos Catheter Performed By: #### A DDONUAPLUS, CUU #### [address] Squamous Epithelial Cell,Urine 5-9 High 0-2 [facility] Comment on above: Order Comment: Name Collection Type:: Ramos Catheter Performed By: #### A DDONUAPLUS, CUU #### [address] Urobilinogen,Urine Normal Normal Normal [facility] Comment on above: Order Comment: Name Collection Type:: Ramos Catheter Performed By: #### A DDONUAPLUS, CUU #### [address] WBC,Urine Innumerable High 0-4 [facility] Comment on above: Order Comment: Name Collection Type:: Ramos Catheter Performed By: #### A DDONUAPLUS, CUU #### [address] Yeast,Urine None Seen Normal None Seen [facility] Comment on above: Order Comment: Name Collection Type:: Ramos Catheter Result Comment: PERF ORMED BY: [place] [address] PATHOLOGIST DOOR TO DOOR SALESPERSON LEANDRO DINERO M.D. Performed By: #### A DDONUAPLUS, CUU #### [address] Ketones Auto test strip (U) [Mass/Vol]Ordered By: Jose Enrique Almendarez on 08-28-2023 Ketones (U) [Mass/Vol] 1+ Negative Fi [facility] Nitrite Test strip Ql (U)Ord ered By: Jose Enrique Almendarez on 08-28-2023 Nitrite Ql (U) Negative Negative [facility] Specific gravity Auto test s trip (U) [Rel density]Ordered By: Jose Enrique Almendarez on 08-28-2023 Specific gravity (U) [Rel density] 1.029 1.001-1.030 [facility] Squamous epithelial cells de tection in urine sediment by light microscopyOrdered By: Jose Enrique Almendarez on 08-28-2023 Epithelial cells.squamous LM Ql (Urine sed) 5-9 [HPF] 0-2 [facility] Urine Cultureon 08-28-2023 Bacteria identified Cx Nom (U) ORGANISM: Klebsiella pneumoniae (O:KLEPNE) [place] Count >100,000 ORGANISM: Enterococcus faecalis (O:ENTFAC) [place] Count 75,000 Aerobic BEAU Charge (NMIC56) ---- [...] RESISTANT TO ALL B-LACTAM DRUGS. PERFORMED BY: [place] [address] PATHOLOGIST DOOR TO DOOR SALESPERSON LEANDRO DINERO M.D. Normal [facility] Comment on above: Performed By: #### A DDONUAPLUS, CUU #### [address] Urine bacteria detection by automated methodOrdered By: Jose Enrique Almendarez on 08-28-2023 Bacteria Auto Ql (U) 4+ None Seen [facility] Urine clarity by refractomet ry automatedOrdered By: Jose Enrique Almendarez on 08-28-2023 Clarity Refractometry automated (U) Turbid Clear [facility] Urine culture routineOrdered By: Jose Enrique Almendarez on 08-28-2023 Bacteria identified Cx Nom (U) Enterococcus faecalis [facility] Urine glucose measurement by automated test strip (mass/volume)Ordered By: Jose Enrique Almendarez on 08-28-2023 Glucose Auto test strip (U) [Mass/Vol] Normal mg/dL Normal [facility] Urine hemoglobin detection b y automated test stripOrdered By: Jose Enrique Almendarez on 08-28-2023 Hemoglobin Auto test strip Ql (U) 3+ Negative [facility] Urine leukocyte esterase det ection by automated test stripOrdered By: Jose Enrique Almendarez on 08-28-2023 Leukocyte esterase Auto test strip Ql (U) 4+ Negative [facility] Urine pH measurement by auto mated test stripOrdered By: Jose Enrique Almendarez on 08-28-2023 pH (U) 5.5 [pH] Normal 5.0-9.0 [facility] Comment on above: Order Comment: Name Collection Type:: Ramos Catheter Performed By: #### A DDONUAPLUS, CUU #### [facility] [address] Urine protein measurement by automated test strip (mass/volume)Ordered By: Jose Enrique Almendarez on 08-28-2023 Protein (U) [Mass/Vol] 300 mg/dL High Negative Fi [facility] Comment on above: Order Comment: Name Collection Type:: Ramos Catheter Performed By: #### A DDONUAPLUS, CUU #### [facility] [address] Urine sediment crystal ident ification by light microscopyOrdered By: Jose Enrique Almendarez on 08-28-2023 Crystals LM Nom (Urine sed) None seen [HPF] [facility] Urobilinogen Auto test strip (U) [Mass/Vol]Ordered By: Jose Enrique Almendarez on 08-28-2023 Urobilinogen (U) [Mass/Vol] Normal mg/dL Normal [facility] Yeast detection in urine sed iment by light microscopyOrdered By: Jose Enrique Almendarez on 08-28-2023 Yeast LM Ql (Urine sed) None seen [HPF] None Se en [facility] US arterial pvr rest Ally US arterial pvr rest LE [facility] Main [place] [address] [address] Ultrasound Report Signed Patient: Gagandeep Ahn MR#: [id number] 32 : 1950 Acct:[id number] Age/Sex: 72 / M ADM Date: 08/26/23 Loc: Room: Type: [facility] Attending Dr: Martha Wilkes APRN Ordering [...] Austyn Martinez M.D.08/27/2023 10:50 AM Dictation Location: [place] [address] Tech: Stephani Lo Transcribed By: MARTHA 08/27/23 1050 Dictated By: Austyn Martinez MD 08/27/23 1049 Signed By: 08/27/23 1050 Normal [facility] XR calcaneus BIon 08-19-2023 XR calcaneus BI [facility] Main [place] [address] [place] [address] XRay Report Signed Patient: Gagandeep Ahn MR#: [id number] 32 : 1950 Acct:[id number] Age/Sex: 72 / M ADM Date: 08/19/23 [...] Austyn Day M.D.08/19/2023 10:46 AM Dictation Location: [place] [address] Transcribed By: [facility] 08/19/23 1046 Dictated By: Austyn Day DO 08/19/23 1041 Signed By: 08/19/23 1046 Normal [facility] CBC AND AUTO DIFFon 06-30-19 ABSOLUTE BASOPHIL 0.0 X10E9/L Normal 0.0-0.2 [facility] Comment on above: Performed By: #### C BCA, PINR, 56101-8, BMP, 3040-3, 55080-8, 5643-2, LIVR, 62143-8, 63693-3, THYR, 42218-4, 66788-2 #### [facility] ([id number]) [address] [place] [address] 13288 ABSOLUTE NEUTROPHIL 12.7 X10E9/L High 1.5-6.6 [facility] Comment on above: Performed By: #### C BCA, PINR, 43231-8, BMP, 3040-3, 00484-1, 5643-2, LIVR, 40934-9, 57166-7, THYR, 50677-4, 85924-6 #### [facility] ([id number]) [address] [place] [address] Basophils/100 WBC (Bld) 0.1 % Normal [facility] Comment on above: Performed By: #### C BCA, PINR, 65506-8, BMP, 3040-3, 24310-4, 5643-2, LIVR, 89344-6, 68943-8, THYR, 71284-7, 22991-6 #### [facility] ([id number]) [address] [place] [address] Eosinophils (Bld) [#/Vol] 0.0 10*3/uL Normal 0.0-0.4 [facility] Comment on above: Performed By: #### C BCA, PINR, 64521-7, BMP, 3040-3, 95570-6, 5643-2, LIVR, 92423-4, 13008-9, THYR, 96811-9, 91179-1 #### [facility] ([id number]) [address] [place] [address] 25100 Eosinophils/100 WBC (Bld) 0.1 % Normal [facility] Comment on above: Performed By: #### C BCA, PINR, 70865-3, BMP, 3040-3, 02008-3, 5643-2, LIVR, 67689-8, 15733-0, THYR, 15449-9, 19513-6 #### [facility] ([id number]) [address] [place] [address]1640 Erythrocyte distribution width (RBC) [Ratio] 15.1 % High 11.5-15.0 [facility] Comment on above: Performed By: #### C BCA, PINR, 45563-0, BMP, 3040-3, 31403-7, 5643-2, LIVR, 82528-8, 17471-6, THYR, 96879-4, 36017-0 #### [facility] ([id number]) [address] [place] [address] 86566 Hematocrit (Bld) [Volume fraction] 35.4 % Low 39-49 [facility] Comment on above: Performed By: #### C BCA, PINR, 37194-0, BMP, 3040-3, 31148-8, 5643-2, LIVR, 44485-9, 70948-5, THYR, 10233-6, 28196-4 #### [facility] ([id number]) [address] [place] [address] 99405 Hemoglobin (Bld) [Mass/Vol] 12.2 g/dL Low 13.0-17.0 [facility] Comment on above: Performed By: #### C BCA, PINR, 09623-6, BMP, 3040-3, 87375-8, 5643-2, LIVR, 39224-0, 66171-1, THYR, 36543-7, 97582-2 #### [facility] ([id number]) [address] [place] [address] 01526 Lymphocytes (Bld) [#/Vol] 0.5 10*3/uL Low 1.0-3.5 [facility] Comment on above: Performed By: #### C BCA, PINR, 42184-8, BMP, 3040-3, 55077-5, 5643-2, LIVR, 25229-5, 34917-7, THYR, 63128-5, 86663-4 #### [facility] ([id number]) [address] [place] [address] 29014 Lymphocytes/100 WBC (Bld) 3.9 % Normal [facility] Comment on above: Performed By: #### C BCA, PINR, 53548-3, BMP, 3040-3, 52667-9, 5643-2, LIVR, 83000-0, 97801-0, THYR, 15677-2, 53418-1 #### [facility] ([id number]) [address] [place] [address] 28985 MCH (RBC) [Entitic mass] 28.7 pg Normal 27-34 [facility] Comment on above: Performed By: #### C BCA, PINR, 29363-0, BMP, 3040-3, 61930-1, 5643-2, LIVR, 43538-6, 67149-6, THYR, 41391-6, 01190-7 #### [facility] ([id number]) [address] [place] [address] 75877 MCHC (RBC) [Mass/Vol] 34.4 g/dL Normal 32-36 [facility] Comment on above: Performed By: #### C BCA, PINR, 02059-1, BMP, 3040-3, 19350-5, 5643-2, LIVR, 90838-1, 58317-4, THYR, 17836-2, 78338-8 #### [facility] ([id number]) [address] [place] [address] 06219 MCV (RBC) [Entitic vol] 84 fL Normal 80-100 [facility] Comment on above: Performed By: #### C BCA, PINR, 30066-0, BMP, 3040-3, 54470-5, 5643-2, LIVR, 39559-1, 04618-2, THYR, 87211-4, 26968-4 #### [facility] ([id number]) [address] [place] [address] 94080 Monocytes (Bld) [#/Vol] 0.6 10*3/uL Normal 0-0.9 [facility] Comment on above: Performed By: #### C BCA, PINR, 25965-5, BMP, 3040-3, 91542-0, 5643-2, LIVR, 45288-6, 49532-7, THYR, 23550-2, 87194-6 #### [facility] ([id number]) [address] [place] [address] 58153 Monocytes/100 WBC (Bld) 4.4 % Normal [facility] Comment on above: Performed By: #### C BCA, PINR, 82159-6, BMP, 3040-3, 56456-3, 5643-2, LIVR, 30568-7, 27453-8, THYR, 57883-4, 64349-0 #### [facility] ([id number]) [address] [place] [address] 33162 Neutrophils/100 WBC (Bld) 91.5 % Normal [facility] Comment on above: Performed By: #### C BCA, PINR, 76029-9, BMP, 3040-3, 60282-5, 5643-2, LIVR, 33410-0, 35336-0, THYR, 44931-1, 22999-9 #### [facility] ([id number]) [address] [place] [address] 75972 Platelet mean volume (Bld) [Entitic vol] 8.6 fL Normal 7-12 [facility] Comment on above: Performed By: #### C BCA, PINR, 94802-7, BMP, 3040-3, 13866-2, 5643-2, LIVR, 97027-8, 12679-3, THYR, 44946-1, 40769-7 #### [facility] ([id number]) [address] [place] [address] 44842 Platelets (Bld) [#/Vol] 177 10*3/uL Normal 150-450 [facility] Comment on above: Performed By: #### C BCA, PINR, 53342-0, BMP, 3040-3, 93201-8, 5643-2, LIVR, 83494-9, 69380-4, THYR, 63456-2, 29336-4 #### [facility] ([id number]) [address] [place] [address] 09981 RBC COUNT 4.23 X10E12/L Normal 4.10-5.70 [facility] Comment on above: Performed By: #### C BCA, PINR, 16457-6, BMP, 3040-3, 71731-5, 5643-2, LIVR, 78181-3, 24753-3, THYR, 14788-1, 82111-0 #### [facility] ([id number]) [address] [place] [address] 63321 WBC (Bld) [#/Vol] 13.9 10*3/uL High 4.0-11.0 [facility] Comment on above: Performed By: #### C BCA, PINR, 77205-4, BMP, 3040-3, 32042-2, 5643-2, LIVR, 55791-0, 25129-2, THYR, 83426-1, 56858-2 #### [facility] ([id number]) [address] [place] [address] 95663 COMPREHENSIVE METABOLIC PANE [place]son 06-30-2023 Albumin [Mass/Vol] 3.1 g/dL Low 3.2-5.3 [facility] Comment on above: Performed By: #### C BCA, PINR, 93156-1, BMP, 3040-3, 02858-5, 5643-2, LIVR, 46291-2, 87728-5, THYR, 34635-3, 26703-5 #### [facility] ([id number]) [address] [place] [address] 74484 ALP [Catalytic activity/Vol] 42 U/L Normal 39-130 [facility] Comment on above: Performed By: #### C BCA, PINR, 78529-5, BMP, 3040-3, 66101-5, 5643-2, LIVR, 32466-5, 77906-0, THYR, 43490-2, 38379-4 #### [facility] ([id number]) [address] [place] [address] [place] [address] ALT [Catalytic activity/Vol] 46 U/L High 0-40 [facility] Comment on above: Performed By: #### C BCA, PINR, 97466-6, BMP, 3040-3, 98605-5, 5643-2, LIVR, 90013-1, 34310-1, THYR, 67224-8, 18250-4 #### [facility] ([id number]) [address] [place] [address] Anion gap [Moles/Vol] 10 mmol/L Normal 5-15 [facility] Comment on above: Performed By: #### C BCA, PINR, 23624-1, BMP, 3040-3, 98000-2, 5643-2, LIVR, 07472-6, 75709-1, THYR, 51131-7, 31938-9 #### [facility] ([id number]) [address] [place] [address] [place] [address] AST [Catalytic activity/Vol] 35 U/L Normal 0-41 [facility] Comment on above: Performed By: #### C BCA, PINR, 75435-0, BMP, 3040-3, 05929-5, 5643-2, LIVR, 10569-9, 70364-2, THYR, 31164-9, 65070-2 #### [facility] ([id number]) [address] [place] [address] 99802 Bilirubin [Mass/Vol] 1.2 mg/dL Normal 0.3-1.2 [facility] Comment on above: Performed By: #### C BCA, PINR, 76213-1, BMP, 3040-3, 10273-0, 5643-2, LIVR, 62212-6, 80894-4, THYR, 27370-8, 56090-2 #### [facility] ([id number]) [address] [place] [address] 12454 Calcium [Mass/Vol] 8.2 mg/dL Low 8.5-10.5 [facility] Comment on above: Performed By: #### C BCA, PINR, 80513-0, BMP, 3040-3, 61854-7, 5643-2, LIVR, 03156-9, 65131-2, THYR, 13031-6, 56727-6 #### [facility] ([id number]) [address] [place] [address] [place] [address] Chloride [Moles/Vol] 100 mmol/L Normal 98-109 [facility] Comment on above: Performed By: #### C BCA, PINR, 49045-5, BMP, 3040-3, 11488-9, 5643-2, LIVR, 81559-3, 87848-3, THYR, 57050-0, 52254-4 #### [facility] ([id number]) [address] [place] [address] 94927 CO2 [Moles/Vol] 23 mmol/L Normal 22-32 [facility] Comment on above: Performed By: #### C BCA, PINR, 62701-0, BMP, 3040-3, 38469-9, 5643-2, LIVR, 04475-1, 70959-3, THYR, 53258-9, 88346-6 #### [facility] ([id number]) [address] [place] [address] 98141 Creatinine [Mass/Vol] 1.02 mg/dL Normal 0.70-1.20 [facility] Comment on above: Result Comment: METH OD TRACEABLE TO IDMS STANDARD Performed By: #### C BCA, PINR, 61506-4, BMP, 3040-3, 23158-0, 5643-2, LIVR, 99669-6, 10037-8, THYR, 87239-1, 27491-4 #### [facility] ([id number]) [address] [place] [address] 72897 GFR/1.73 sq M.predicted among non-blacks MDRD (S/P/Bld) [Vol rate/Area] 77 mL/min/{1.73_m2} Normal >59 [facility] Comment on above: Result Comment: Reported eGFR is based on the CKD-EPI 2020 equation that does not use a race coefficient. Performed By: #### C BCA, PINR, 36141-5, BMP, 3040-3, 70957-4, 5643-2, LIVR, 91325-4, 45911-4, THYR, 74557-3, 63001-6 #### [facility] ([id number]) [address] [place] [address], [place] [address] Glucose [Mass/Vol] 168 mg/dL High 65-99 [facility] Comment on above: Performed By: #### C BCA, PINR, 19820-2, BMP, 3040-3, 45920-4, 5643-2, LIVR, 17508-7, 80385-2, THYR, 39905-1, 74530-4 #### [facility] ([id number]) [address] [place] [address] 97642 Potassium [Moles/Vol] 3.3 mmol/L Low 3.5-5.0 [facility] Comment on above: Performed By: #### C BCA, PINR, 69377-5, BMP, 3040-3, 57962-6, 5643-2, LIVR, 78714-8, 40184-4, THYR, 24338-5, 70518-9 #### [facility] ([id number]) [address] [place] [address] 21249 Protein [Mass/Vol] 6.7 g/dL Normal 6.0-8.0 [facility] Comment on above: Performed By: #### C BCA, PINR, 95941-6, BMP, 3040-3, 51553-2, 5643-2, LIVR, 30509-3, 93791-7, THYR, 93125-6, 63775-6 #### [facility] ([id number]) [address] [place] [address], [place] [address] Sodium [Moles/Vol] 133 mmol/L Low 134-146 [facility] Comment on above: Performed By: #### C BCA, PINR, 02750-8, BMP, 3040-3, 95705-0, 5643-2, LIVR, 75495-0, 13297-0, THYR, 28396-4, 48629-5 #### [facility] ([id number]) [address] [place] [address] Urea nitrogen [Mass/Vol] 21 mg/dL Normal 5-27 [facility] Comment on above: Performed By: #### C BCA, PINR, 17784-8, BMP, 3040-3, 38630-4, 5643-2, LIVR, 51131-4, 39331-8, THYR, 30980-1, 48692-1 #### [facility] ([id number]) [address] [place] [address] Glucose Glucometer (BldC) [M ass/Vol]on 06-30-2023 Glucose [Mass/Vol] 191 mg/dL High 65-99 [facility] Glucose [Mass/Vol] 188 mg/dL High 65-99 [facility] MAGNESIUMon 06-30-2023 Magnesium [Mass/Vol] 1.8 mg/dL Normal 1.8-2.6 [facility] Comment on above: Performed By: #### C BCA, PINR, 08681-4, BMP, 3040-3, 49151-2, 5643-2, LIVR, 61418-1, 84924-6, THYR, 84319-2, 94311-4 #### [facility] ([id number]) [address] [place] [address] POTASSIUMon 06-30-2023 Potassium [Moles/Vol] 3.7 mmol/L Normal 3.5-5.0 [facility] Comment on above: Performed By: #### C BCA, PINR, 53086-8, BMP, 3040-3, 90914-6, 5643-2, LIVR, 73587-4, 85638-9, THYR, 55121-8, 89235-2 #### [facility] ([id number]) [address] [place] [address] 65513 CBC AND AUTO DIFFon 06-29-19 24 ABSOLUTE BASOPHIL 0.0 X10E9/L Normal 0.0-0.2 [facility] Comment on above: Performed By: #### C BCA, PINR, 52204-1, BMP, 3040-3, 88507-6, 5643-2, LIVR, 73362-7, 87172-0, THYR, 61918-4, 92347-1 #### [facility] ([id number]) [address] [place] [address] 02161 ABSOLUTE NEUTROPHIL 6.1 X10E9/L Normal 1.5-6.6 [facility] Comment on above: Performed By: #### C BCA, PINR, 65722-5, BMP, 3040-3, 31301-3, 5643-2, LIVR, 58893-1, 15960-4, THYR, 23986-6, 71468-5 #### [facility] ([id number]) [address] [place] [address] 52367 Basophils/100 WBC (Bld) 0.5 % Normal [facility] Comment on above: Performed By: #### C BCA, PINR, 96035-1, BMP, 3040-3, 87212-8, 5643-2, LIVR, 92761-2, 72520-1, THYR, 58907-1, 25410-6 #### [facility] ([id number]) [address] [place] [address] [place] [address] Eosinophils (Bld) [#/Vol] 0.1 10*3/uL Normal 0.0-0.4 [facility] Comment on above: Performed By: #### C BCA, PINR, 74353-7, BMP, 3040-3, 46276-0, 5643-2, LIVR, 44444-0, 72760-7, THYR, 19124-9, 45918-8 #### [facility] ([id number]) [address] [place] [address] 40099 Eosinophils/100 WBC (Bld) 1.4 % Normal [facility] Comment on above: Performed By: #### C BCA, PINR, 48649-3, BMP, 3040-3, 22150-6, 5643-2, LIVR, 56376-8, 18820-6, THYR, 97842-7, 54780-9 #### [facility] ([id number]) [address] [place] [address] 16761 Erythrocyte distribution width (RBC) [Ratio] 15.2 % High 11.5-15.0 [facility] Comment on above: Performed By: #### C BCA, PINR, 77703-7, BMP, 3040-3, 37536-0, 5643-2, LIVR, 08809-7, 68214-1, THYR, 07600-4, 21882-0 #### [facility] ([id number]) [address] [place] [address] 31949 Hematocrit (Bld) [Volume fraction] 36.2 % Low 39-49 [facility] Comment on above: Performed By: #### C BCA, PINR, 24038-2, BMP, 3040-3, 46005-2, 5643-2, LIVR, 32281-6, 21082-3, THYR, 62074-1, 46644-5 #### [facility] ([id number]) [address] [place] [address] [place] [address] Hemoglobin (Bld) [Mass/Vol] 12.5 g/dL Low 13.0-17.0 [facility] Comment on above: Performed By: #### C BCA, PINR, 31605-8, BMP, 3040-3, 60140-2, 5643-2, LIVR, 89279-8, 77101-5, THYR, 78641-4, 64740-0 #### [facility] ([id number]) [address] [place] [address] 34663 Lymphocytes (Bld) [#/Vol] 0.9 10*3/uL Low 1.0-3.5 [facility] Comment on above: Performed By: #### C BCA, PINR, 23485-9, BMP, 3040-3, 55030-5, 5643-2, LIVR, 45070-0, 92429-3, THYR, 49883-4, 63247-1 #### [facility] ([id number]) [address] [place] [address] 49499 Lymphocytes/100 WBC (Bld) 11.6 % Normal [facility] Comment on above: Performed By: #### C BCA, PINR, 34372-7, BMP, 3040-3, 41410-0, 5643-2, LIVR, 66704-6, 38610-9, THYR, 69339-6, 56776-4 #### [facility] ([id number]) [address] [place] [address] 75480 MCH (RBC) [Entitic mass] 28.7 pg Normal 27-34 [facility] Comment on above: Performed By: #### C BCA, PINR, 38236-3, BMP, 3040-3, 63963-0, 5643-2, LIVR, 11476-3, 61889-2, THYR, 27026-9, 92606-4 #### [facility] ([id number]) [address] [place] [address] 31706 MCHC (RBC) [Mass/Vol] 34.4 g/dL Normal 32-36 [facility] Comment on above: Performed By: #### C BCA, PINR, 72385-8, BMP, 3040-3, 37528-3, 5643-2, LIVR, 53517-0, 23791-9, THYR, 88072-7, 38219-3 #### [facility] ([id number]) [address] [place] [address] 92776 MCV (RBC) [Entitic vol] 83 fL Normal 80-100 [facility] Comment on above: Performed By: #### C BCA, PINR, 68357-6, BMP, 3040-3, 87914-6, 5643-2, LIVR, 66081-6, 07087-8, THYR, 06727-8, 55963-8 #### [facility] ([id number]) [address] [place] [address] 66402 Monocytes (Bld) [#/Vol] 0.7 10*3/uL Normal 0-0.9 [facility] Comment on above: Performed By: #### C BCA, PINR, 49944-5, BMP, 3040-3, 01385-6, 5643-2, LIVR, 81897-2, 49749-6, THYR, 08608-1, 05788-2 #### [facility] ([id number]) [address] [place] [address] 52958 Monocytes/100 WBC (Bld) 8.5 % Normal [facility] Comment on above: Performed By: #### C BCA, PINR, 99835-4, BMP, 3040-3, 71797-8, 5643-2, LIVR, 48313-7, 19546-0, THYR, 02352-8, 87749-1 #### [facility] ([id number]) [address] [place] [address] [place] [address] Neutrophils/100 WBC (Bld) 78.0 % Normal [facility] Comment on above: Performed By: #### C BCA, PINR, 68330-3, BMP, 3040-3, 75512-7, 5643-2, LIVR, 83346-0, 45720-9, THYR, 94784-5, 15209-9 #### [facility] ([id number]) [address] [place] [address], [place] [address] Platelet mean volume (Bld) [Entitic vol] 7.9 fL Normal 7-12 [facility] Comment on above: Performed By: #### C BCA, PINR, 59163-3, BMP, 3040-3, 27891-1, 5643-2, LIVR, 57527-4, 91625-1, THYR, 24906-8, 56908-7 #### [facility] ([id number]) [address] [place] [address] 50562 Platelets (Bld) [#/Vol] 184 10*3/uL Normal 150-450 [facility] Comment on above: Performed By: #### C BCA, PINR, 79874-8, BMP, 3040-3, 66883-6, 5643-2, LIVR, 52983-4, 11129-9, THYR, 92760-8, 01992-3 #### [facility] ([id number]) [address] [place] [address] 48690 RBC COUNT 4.34 X10E12/L Normal 4.10-5.70 [facility] Comment on above: Performed By: #### C BCA, PINR, 55154-8, BMP, 3040-3, 72468-4, 5643-2, LIVR, 16274-2, 87438-2, THYR, 21762-0, 65832-2 #### [facility] ([id number]) [address] [place] [address] 72108 WBC (Bld) [#/Vol] 7.8 10*3/uL Normal 4.0-11.0 [facility] Comment on above: Performed By: #### C BCA, PINR, 62056-0, BMP, 3040-3, 41532-3, 5643-2, LIVR, 33352-0, 73052-7, THYR, 48108-4, 39504-7 #### [facility] ([id number]) [address] [place] [address] 07586 COMPREHENSIVE METABOLIC PANE Nilson 06-29-2023 Albumin [Mass/Vol] 3.4 g/dL Normal 3.2-5.3 [facility] Comment on above: Performed By: #### C BCA, PINR, 80290-5, BMP, 3040-3, 57141-8, 5643-2, LIVR, 14931-1, 42644-7, THYR, 63917-1, 91375-8 #### [facility] ([id number]) [address] [place] [address] [place] [address] ALP [Catalytic activity/Vol] 43 U/L Normal 39-130 [facility] Comment on above: Performed By: #### C BCA, PINR, 00596-4, BMP, 3040-3, 28790-4, 5643-2, LIVR, 31456-3, 35288-3, THYR, 01878-7, 53288-7 #### [facility] ([id number]) [address] [place] [address] [place] [address] ALT [Catalytic activity/Vol] 63 U/L High 0-40 [facility] Comment on above: Performed By: #### C BCA, PINR, 24385-0, BMP, 3040-3, 41256-0, 5643-2, LIVR, 95001-5, 32211-7, THYR, 16184-1, 75611-8 #### [facility] ([id number]) [address] [place] [address] [place] [address] Anion gap [Moles/Vol] 8 mmol/L Normal 5-15 [facility] Comment on above: Performed By: #### C BCA, PINR, 22664-0, BMP, 3040-3, 53484-4, 5643-2, LIVR, 53518-6, 70200-3, THYR, 53768-1, 77388-7 #### [facility] ([id number]) [address] [place] [address] [place] [address] AST [Catalytic activity/Vol] 64 U/L High 0-41 [facility] Comment on above: Performed By: #### C BCA, PINR, 58526-6, BMP, 3040-3, 67654-5, 5643-2, LIVR, 26878-3, 62312-1, THYR, 36718-3, 90080-4 #### [facility] ([id number]) [address] [place] [address] [place] [address] Bilirubin [Mass/Vol] 0.7 mg/dL Normal 0.3-1.2 [facility] Comment on above: Performed By: #### C BCA, PINR, 54071-9, BMP, 3040-3, 16300-5, 5643-2, LIVR, 93515-4, 09751-9, THYR, 69666-0, 82926-9 #### [facility] ([id number]) [address] [place] [address] 48299 Calcium [Mass/Vol] 8.2 mg/dL Low 8.5-10.5 [facility] Comment on above: Performed By: #### C BCA, PINR, 70691-9, BMP, 3040-3, 47092-2, 5643-2, LIVR, 46922-4, 27218-9, THYR, 07738-0, 67484-7 #### [facility] ([id number]) [address] [place] [address] [place] [address] Chloride [Moles/Vol] 103 mmol/L Normal 98-109 [facility] Comment on above: Performed By: #### C BCA, PINR, 13426-4, BMP, 3040-3, 35775-2, 5643-2, LIVR, 27948-6, 71844-4, THYR, 83981-6, 66905-6 #### [facility] ([id number]) [address] [place] [address] [place] [address] CO2 [Moles/Vol] 22 mmol/L Normal 22-32 [facility] Comment on above: Performed By: #### C BCA, PINR, 68386-1, BMP, 3040-3, 65452-4, 5643-2, LIVR, 61406-0, 49106-1, THYR, 60415-8, 86500-6 #### [facility] ([id number]) [address] [place] [address] 72645 Creatinine [Mass/Vol] 1.12 mg/dL Normal 0.70-1.20 [facility] Comment on above: Result Comment: METH OD TRACEABLE TO IDMS STANDARD Performed By: #### C BCA, PINR, 70598-8, BMP, 3040-3, 59341-0, 5643-2, LIVR, 17991-9, 71863-2, THYR, 99568-5, 45306-9 #### [facility] ([id number]) [address] [place] [address] 97416 GFR/1.73 sq M.predicted among non-blacks MDRD (S/P/Bld) [Vol rate/Area] 69 mL/min/{1.73_m2} Normal >59 [facility] Comment on above: Result Comment: Reported eGFR is based on the CKD-EPI 2020 equation that does not use a race coefficient. Performed By: #### C BCA, PINR, 46394-9, BMP, 3040-3, 49709-3, 5643-2, LIVR, 86003-4, 23616-1, THYR, 65419-4, 10738-8 #### [facility] ([id number]) [address] [place] [address] 62615 Glucose [Mass/Vol] 151 mg/dL High 65-99 [facility] Comment on above: Performed By: #### C BCA, PINR, 11810-1, BMP, 3040-3, 84644-5, 5643-2, LIVR, 90356-7, 97523-4, THYR, 30682-2, 89687-7 #### [facility] ([id number]) [address] [place] [address] 10931 Potassium [Moles/Vol] 3.6 mmol/L Normal 3.5-5.0 [facility] Comment on above: Performed By: #### C BCA, PINR, 63160-6, BMP, 3040-3, 34728-0, 5643-2, LIVR, 10335-4, 12457-0, THYR, 85425-9, 32637-2 #### [facility] ([id number]) [address] [place] [address] 04374 Protein [Mass/Vol] 6.3 g/dL Normal 6.0-8.0 [facility] Comment on above: Performed By: #### C BCA, PINR, 78465-1, BMP, 3040-3, 23657-6, 5643-2, LIVR, 82140-4, 58939-7, THYR, 40218-8, 89605-1 #### [facility] ([id number]) [address] [place] [address] 02118 Sodium [Moles/Vol] 133 mmol/L Low 134-146 [facility] Comment on above: Performed By: #### C BCA, PINR, 08149-8, BMP, 3040-3, 36244-9, 5643-2, LIVR, 08636-8, 74344-6, THYR, 84440-5, 90032-2 #### [facility] ([id number]) [address] [place] [address] 86500 Urea nitrogen [Mass/Vol] 31 mg/dL High 5-27 [facility] Comment on above: Performed By: #### C BCA, PINR, 50973-3, BMP, 3040-3, 78535-6, 5643-2, LIVR, 91542-8, 17224-7, THYR, 97467-5, 27121-2 #### [facility] ([id number]) [address] [place] [address] 96946 Glucose Glucometer (BldC) [M ass/Vol]on 06-29-2023 Glucose [Mass/Vol] 216 mg/dL High 65-99 [facility] Glucose [Mass/Vol] 160 mg/dL High 65-99 [facility] Glucose [Mass/Vol] 196 mg/dL High 65-99 [facility] Glucose [Mass/Vol] 135 mg/dL High 65-99 [facility] MAGNESIUMon 06-29-2023 Magnesium [Mass/Vol] 1.7 mg/dL Low 1.8-2.6 [facility] Comment on above: Performed By: #### C BCA, PINR, 25078-3, BMP, 3040-3, 14205-9, 5643-2, LIVR, 55034-0, 10711-8, THYR, 57649-5, 53317-7 #### [facility] ([id number]) [address] [place] [address] 88892 CBC AND AUTO DIFFon 06-28-19 24 ABSOLUTE BASOPHIL 0.0 X10E9/L Normal 0.0-0.2 [facility] Comment on above: Performed By: #### C BCA, PINR, 10330-9, BMP, 3040-3, 15192-3, 5643-2, LIVR, 72471-0, 95788-2, THYR, 08664-1, 54659-3 #### [facility] ([id number]) [address] [place] [address] 01777 ABSOLUTE NEUTROPHIL 2.9 X10E9/L Normal 1.5-6.6 [facility] Comment on above: Performed By: #### C BCA, PINR, 56646-8, BMP, 3040-3, 14076-0, 5643-2, LIVR, 15036-3, 49411-4, THYR, 88203-1, 87693-1 #### [facility] ([id number]) [address] [place] [address] 41189 Basophils/100 WBC (Bld) 0.5 % Normal [facility] Comment on above: Performed By: #### C BCA, PINR, 09479-1, BMP, 3040-3, 25254-0, 5643-2, LIVR, 23208-6, 93553-2, THYR, 17471-3, 40972-4 #### [facility] ([id number]) [address] [place] [address] 22242 Eosinophils (Bld) [#/Vol] 0.1 10*3/uL Normal 0.0-0.4 [facility] Comment on above: Performed By: #### C BCA, PINR, 86205-8, BMP, 3040-3, 46043-5, 5643-2, LIVR, 06023-0, 08283-8, THYR, 66610-0, 35869-2 #### [facility] ([id number]) [address] [place] [address] 92544 Eosinophils/100 WBC (Bld) 2.2 % Normal [facility] Comment on above: Performed By: #### C BCA, PINR, 02624-8, BMP, 3040-3, 63240-7, 5643-2, LIVR, 16987-7, 32315-9, THYR, 70093-8, 95411-2 #### [facility] ([id number]) [address] [place] [address] [place] [address] Erythrocyte distribution width (RBC) [Ratio] 15.1 % High 11.5-15.0 [facility] Comment on above: Performed By: #### C BCA, PINR, 87781-7, BMP, 3040-3, 03129-1, 5643-2, LIVR, 96476-8, 48454-8, THYR, 36462-7, 61196-9 #### [facility] ([id number]) [address] [place] [address] 70077 Hematocrit (Bld) [Volume fraction] 39.2 % Normal 39-49 [facility] Comment on above: Performed By: #### C BCA, PINR, 17499-8, BMP, 3040-3, 98252-9, 5643-2, LIVR, 35172-1, 68574-0, THYR, 83935-5, 12835-3 #### [facility] ([id number]) [address] [place] [address] 69516 Hemoglobin (Bld) [Mass/Vol] 13.5 g/dL Normal 13.0-17.0 [facility] Comment on above: Performed By: #### C BCA, PINR, 37352-6, BMP, 3040-3, 44354-8, 5643-2, LIVR, 58381-5, 68475-6, THYR, 27785-1, 80011-8 #### [facility] ([id number]) [address] [place] [address] 81572 Lymphocytes (Bld) [#/Vol] 1.6 10*3/uL Normal 1.0-3.5 [facility] Comment on above: Performed By: #### C BCA, PINR, 14168-3, BMP, 3040-3, 04070-5, 5643-2, LIVR, 22143-6, 47010-2, THYR, 66116-7, 34170-7 #### [facility] ([id number]) [address] [place] [address] 53600 Lymphocytes/100 WBC (Bld) 30.7 % Normal [facility] Comment on above: Performed By: #### C BCA, PINR, 49264-0, BMP, 3040-3, 55014-0, 5643-2, LIVR, 89262-9, 96075-4, THYR, 11390-6, 20011-4 #### [facility] ([id number]) [address] [place] [address] 38191 MCH (RBC) [Entitic mass] 28.8 pg Normal 27-34 [facility] Comment on above: Performed By: #### C BCA, PINR, 08013-5, BMP, 3040-3, 47338-3, 5643-2, LIVR, 98969-7, 95101-7, THYR, 99986-8, 47364-2 #### [facility] ([id number]) [address] [place] [address] 88021 MCHC (RBC) [Mass/Vol] 34.5 g/dL Normal 32-36 [facility] Comment on above: Performed By: #### C BCA, PINR, 76216-8, BMP, 3040-3, 06717-2, 5643-2, LIVR, 07849-8, 97482-4, THYR, 52992-7, 07523-9 #### [facility] ([id number]) [address] [place] [address] 72645 MCV (RBC) [Entitic vol] 84 fL Normal 80-100 [facility] Comment on above: Performed By: #### C BCA, PINR, 18305-1, BMP, 3040-3, 47362-1, 5643-2, LIVR, 91584-6, 09273-3, THYR, 61499-1, 64938-7 #### [facility] ([id number]) [address] [place] [address] 83135 Monocytes (Bld) [#/Vol] 0.5 10*3/uL Normal 0-0.9 [facility] Comment on above: Performed By: #### C BCA, PINR, 84319-4, BMP, 3040-3, 03267-1, 5643-2, LIVR, 56390-2, 51574-6, THYR, 15979-4, 91306-9 #### [facility] ([id number]) [address] [place] [address] 35280 Monocytes/100 WBC (Bld) 10.0 % Normal [facility] Comment on above: Performed By: #### C BCA, PINR, 59408-4, BMP, 3040-3, 10315-5, 5643-2, LIVR, 92757-2, 17295-5, THYR, 81097-9, 88324-8 #### [facility] ([id number]) [address] [place] [address] [place] [address] Neutrophils/100 WBC (Bld) 56.6 % Normal [facility] Comment on above: Performed By: #### C BCA, PINR, 94442-3, BMP, 3040-3, 79979-2, 5643-2, LIVR, 24388-3, 91256-0, THYR, 08973-7, 21382-7 #### [facility] ([id number]) [address] [place] [address] [place] [address] Platelet mean volume (Bld) [Entitic vol] 8.3 fL Normal 7-12 [facility] Comment on above: Performed By: #### C BCA, PINR, 68317-5, BMP, 3040-3, 37056-9, 5643-2, LIVR, 31857-2, 34871-6, THYR, 53677-4, 80698-1 #### [facility] ([id number]) [address] [place] [address] [place] [address] Platelets (Bld) [#/Vol] 212 10*3/uL Normal 150-450 [facility] Comment on above: Performed By: #### C BCA, PINR, 09877-6, BMP, 3040-3, 66244-5, 5643-2, LIVR, 30152-5, 92361-7, THYR, 09915-6, 12648-0 #### [facility] ([id number]) [address] [place] [address] [place] [address] RBC COUNT 4.69 X10E12/L Normal 4.10-5.70 [facility] Comment on above: Performed By: #### C BCA, PINR, 40531-8, BMP, 3040-3, 36232-7, 5643-2, LIVR, 91634-0, 69523-9, THYR, 05296-6, 21804-9 #### [facility] ([id number]) [address] [place] [address] 70596 WBC (Bld) [#/Vol] 5.1 10*3/uL Normal 4.0-11.0 [facility] Comment on above: Performed By: #### C BCA, PINR, 99015-7, BMP, 3040-3, 27874-5, 5643-2, LIVR, 65391-5, 98511-5, THYR, 18963-4, 11778-9 #### [facility] ([id number]) [address] [place] [address] 39100 COMPREHENSIVE METABOLIC PANE Nilson 06-28-2023 Albumin [Mass/Vol] 3.4 g/dL Normal 3.2-5.3 [facility] Comment on above: Performed By: #### C BCA, PINR, 33882-5, BMP, 3040-3, 40011-2, 5643-2, LIVR, 95995-0, 52961-6, THYR, 04449-1, 99719-2 #### [facility] ([id number]) [address] [place] [address] [place] [address] ALP [Catalytic activity/Vol] 39 U/L Normal 39-130 [facility] Comment on above: Performed By: #### C BCA, PINR, 08244-5, BMP, 3040-3, 17934-3, 5643-2, LIVR, 90748-6, 60357-7, THYR, 19284-2, 50311-9 #### [facility] ([id number]) [address] [place] [address] 99215 ALT [Catalytic activity/Vol] 62 U/L High 0-40 [facility] Comment on above: Performed By: #### C BCA, PINR, 71215-2, BMP, 3040-3, 95001-2, 5643-2, LIVR, 78860-2, 55066-3, THYR, 65489-5, 70519-5 #### [facility] ([id number]) [address] [place] [address] [place] [address] Anion gap [Moles/Vol] 11 mmol/L Normal 5-15 [facility] Comment on above: Performed By: #### C BCA, PINR, 28592-3, BMP, 3040-3, 29670-9, 5643-2, LIVR, 09892-7, 32373-8, THYR, 49500-7, 87781-2 #### [facility] ([id number]) [address] [place] [address] [place] [address] AST [Catalytic activity/Vol] 87 U/L High 0-41 [facility] Comment on above: Performed By: #### C BCA, PINR, 49014-2, BMP, 3040-3, 77824-4, 5643-2, LIVR, 93028-2, 23219-8, THYR, 80112-8, 80838-7 #### [facility] ([id number]) [address] [place] [address] [place] [address] Bilirubin [Mass/Vol] 0.7 mg/dL Normal 0.3-1.2 [facility] Comment on above: Performed By: #### C BCA, PINR, 64186-1, BMP, 3040-3, 12198-5, 5643-2, LIVR, 35047-8, 03132-5, THYR, 23823-6, 57283-1 #### [facility] ([id number]) [address] [place] [address] [place] [address] Calcium [Mass/Vol] 8.6 mg/dL Normal 8.5-10.5 [facility] Comment on above: Performed By: #### C BCA, PINR, 83857-5, BMP, 3040-3, 78970-3, 5643-2, LIVR, 90650-1, 82476-0, THYR, 95201-1, 35022-2 #### [facility] ([id number]) [address] [place] [address] [place] [address] Chloride [Moles/Vol] 103 mmol/L Normal 98-109 [facility] Comment on above: Performed By: #### C BCA, PINR, 69418-9, BMP, 3040-3, 83825-9, 5643-2, LIVR, 66092-0, 95067-9, THYR, 32458-1, 16235-6 #### [facility] ([id number]) [address] [place] [address] CO2 [Moles/Vol] 21 mmol/L Low 22-32 [facility] Comment on above: Performed By: #### C BCA, PINR, 44691-5, BMP, 3040-3, 34367-5, 5643-2, LIVR, 74439-2, 42040-7, THYR, 81715-4, 25888-0 #### [facility] ([id number]) [address] [place] [address] [place] [address] Creatinine [Mass/Vol] 1.40 mg/dL High 0.70-1.20 [facility] Comment on above: Result Comment: METH OD TRACEABLE TO IDMS STANDARD Performed By: #### C BCA, PINR, 40434-1, BMP, 3040-3, 43219-2, 5643-2, LIVR, 97440-5, 52393-0, THYR, 78778-8, 45353-1 #### [facility] ([id number]) [address] [place] [address] [place] [address] GFR/1.73 sq M.predicted among non-blacks MDRD (S/P/Bld) [Vol rate/Area] 53 mL/min/{1.73_m2} Low >59 [facility] Comment on above: Result Comment: Reported eGFR is based on the CKD-EPI 2020 equation that does not use a race coefficient. Performed By: #### C BCA, PINR, 60282-7, BMP, 3040-3, 98911-7, 5643-2, LIVR, 34862-1, 39808-3, THYR, 32528-3, 59974-2 #### [facility] ([id number]) [address] [place] [address] Glucose [Mass/Vol] 127 mg/dL High 65-99 [facility] Comment on above: Performed By: #### C BCA, PINR, 52847-9, BMP, 3040-3, 26225-7, 5643-2, LIVR, 81633-5, 90061-4, THYR, 93928-7, 88908-9 #### [facility] ([id number]) [address] [place] [address] Potassium [Moles/Vol] 3.4 mmol/L Low 3.5-5.0 [facility] Comment on above: Performed By: #### C BCA, PINR, 02293-6, BMP, 3040-3, 70669-6, 5643-2, LIVR, 76472-8, 98138-0, THYR, 33131-8, 94798-3 #### [facility] ([id number]) [address] [place] [address] Protein [Mass/Vol] 6.6 g/dL Normal 6.0-8.0 [facility] Comment on above: Performed By: #### C BCA, PINR, 70995-2, BMP, 3040-3, 17491-2, 5643-2, LIVR, 25104-5, 46246-2, THYR, 95023-4, 92654-4 #### [facility] ([id number]) [address] [place] [address] Sodium [Moles/Vol] 135 mmol/L Normal 134-146 [facility] Comment on above: Performed By: #### C BCA, PINR, 54336-2, BMP, 3040-3, 30603-4, 5643-2, LIVR, 15778-0, 40097-4, THYR, 48337-5, 78149-5 #### [facility] ([id number]) [address] [place] [address] Urea nitrogen [Mass/Vol] 38 mg/dL High 5-27 [facility] Comment on above: Performed By: #### C BCA, PINR, 55298-3, BMP, 3040-3, 65095-9, 5643-2, LIVR, 58043-5, 12752-0, THYR, 08554-7, 20544-3 #### [facility] ([id number]) [address] [place] [address] Glucose Glucometer (BldC) [M ass/Vol]on 06-28-2023 Glucose [Mass/Vol] 123 mg/dL High 65-99 [facility] Glucose [Mass/Vol] 160 mg/dL High 65-99 [facility] Glucose [Mass/Vol] 208 mg/dL High 65-99 [facility] Glucose [Mass/Vol] 132 mg/dL High 65-99 [facility] MAGNESIUMon 06-28-2023 Magnesium [Mass/Vol] 2.1 mg/dL Normal 1.8-2.6 [facility] Comment on above: Performed By: #### C BCA, PINR, 39073-7, BMP, 3040-3, 64890-5, 5643-2, LIVR, 22514-0, 21719-8, THYR, 38639-0, 15696-4 #### [facility] ([id number]) [address] [place] [address] 42613 POTASSIUMon 06-28-2023 Potassium [Moles/Vol] 3.8 mmol/L Normal 3.5-5.0 [facility] Comment on above: Performed By: #### C BCA, PINR, 58285-4, BMP, 3040-3, 81335-9, 5643-2, LIVR, 57916-2, 35382-8, THYR, 91986-5, 41140-2 #### [facility] ([id number]) [address] [place] [address] 31723 CBC AND AUTO DIFFon 06-27-20 ABSOLUTE BASOPHIL 0.0 X10E9/L Normal 0.0-0.2 [facility] Comment on above: Performed By: #### C BCA, PINR, 94146-6, BMP, 3040-3, 68529-2, 5643-2, LIVR, 31723-3, 93071-5, THYR, 12100-8, 82817-0 #### [facility] ([id number]) [address] [place] [address] [place] [address] ABSOLUTE NEUTROPHIL 4.4 X10E9/L Normal 1.5-6.6 [facility] Comment on above: Performed By: #### C BCA, PINR, 56452-7, BMP, 3040-3, 76369-4, 5643-2, LIVR, 26279-0, 78645-2, THYR, 36581-0, 53189-1 #### [facility] ([id number]) [address] [place] [address] [place] [address] Basophils/100 WBC (Bld) 0.3 % Normal [facility] Comment on above: Performed By: #### C BCA, PINR, 23131-1, BMP, 3040-3, 70402-3, 5643-2, LIVR, 19886-4, 51176-7, THYR, 49879-3, 52279-0 #### [facility] ([id number]) [address] [place] [address] Eosinophils (Bld) [#/Vol] 0.0 10*3/uL Normal 0.0-0.4 [facility] Comment on above: Performed By: #### C BCA, PINR, 11309-9, BMP, 3040-3, 24903-1, 5643-2, LIVR, 23008-4, 89703-3, THYR, 19896-4, 82224-9 #### [facility] ([id number]) [address] [place] [address] 52988 Eosinophils/100 WBC (Bld) 0.1 % Normal [facility] Comment on above: Performed By: #### C BCA, PINR, 46957-0, BMP, 3040-3, 20201-3, 5643-2, LIVR, 83036-2, 47447-9, THYR, 74662-6, 47801-4 #### [facility] ([id number]) [address] [place] [address] 94982 Erythrocyte distribution width (RBC) [Ratio] 15.2 % High 11.5-15.0 [facility] Comment on above: Performed By: #### C BCA, PINR, 56740-7, BMP, 3040-3, 24019-4, 5643-2, LIVR, 93965-3, 19690-9, THYR, 88961-3, 47266-0 #### [facility] ([id number]) [address] [place] [address] [place] [address] Hematocrit (Bld) [Volume fraction] 40.7 % Normal 39-49 [facility] Comment on above: Performed By: #### C BCA, PINR, 81297-9, BMP, 3040-3, 07568-2, 5643-2, LIVR, 35371-7, 18042-8, THYR, 15303-7, 65376-4 #### [facility] ([id number]) [address] [place] [address] 88633 Hemoglobin (Bld) [Mass/Vol] 14.2 g/dL Normal 13.0-17.0 [facility] Comment on above: Performed By: #### C BCA, PINR, 41263-9, BMP, 3040-3, 40688-5, 5643-2, LIVR, 48865-3, 35822-2, THYR, 12136-6, 75207-1 #### [facility] ([id number]) [address] [place] [address] 80580 Lymphocytes (Bld) [#/Vol] 0.8 10*3/uL Low 1.0-3.5 [facility] Comment on above: Performed By: #### C BCA, PINR, 66911-5, BMP, 3040-3, 31846-3, 5643-2, LIVR, 48745-8, 04883-2, THYR, 04908-8, 27780-5 #### [facility] ([id number]) [address] [place] [address] 93757 Lymphocytes/100 WBC (Bld) 13.3 % Normal [facility] Comment on above: Performed By: #### C BCA, PINR, 90925-3, BMP, 3040-3, 12231-8, 5643-2, LIVR, 24446-4, 12984-1, THYR, 98735-0, 69445-3 #### [facility] ([id number]) [address] [place] [address] [place] [address] MCH (RBC) [Entitic mass] 29.2 pg Normal 27-34 [facility] Comment on above: Performed By: #### C BCA, PINR, 12609-0, BMP, 3040-3, 61605-1, 5643-2, LIVR, 15591-8, 73910-2, THYR, 95338-9, 07564-0 #### [facility] ([id number]) [address] [place] [address] 28828 MCHC (RBC) [Mass/Vol] 35.0 g/dL Normal 32-36 [facility] Comment on above: Performed By: #### C BCA, PINR, 29832-3, BMP, 3040-3, 27452-5, 5643-2, LIVR, 23943-9, 13023-3, THYR, 99485-4, 87598-9 #### [facility] ([id number]) [address] [place] [address] 17255 MCV (RBC) [Entitic vol] 84 fL Normal 80-100 [facility] Comment on above: Performed By: #### C BCA, PINR, 73724-9, BMP, 3040-3, 91253-6, 5643-2, LIVR, 03554-5, 62985-3, THYR, 46122-5, 28507-7 #### [facility] ([id number]) [address] [place] [address] 39668 Monocytes (Bld) [#/Vol] 0.8 10*3/uL Normal 0-0.9 [facility] Comment on above: Performed By: #### C BCA, PINR, 92661-7, BMP, 3040-3, 84627-2, 5643-2, LIVR, 38037-8, 68223-1, THYR, 69016-4, 28644-4 #### [facility] ([id number]) [address] [place] [address] 64041 Monocytes/100 WBC (Bld) 12.8 % Normal [facility] Comment on above: Performed By: #### C BCA, PINR, 38964-6, BMP, 3040-3, 13070-2, 5643-2, LIVR, 37249-7, 97090-4, THYR, 92968-5, 32452-4 #### [facility] ([id number]) [address] [place] [address] 23453 Neutrophils/100 WBC (Bld) 73.5 % Normal [facility] Comment on above: Performed By: #### C BCA, PINR, 39962-9, BMP, 3040-3, 58606-9, 5643-2, LIVR, 76637-2, 82213-3, THYR, 30665-1, 66502-7 #### [facility] ([id number]) [address] [place] [address] 15091 Platelet mean volume (Bld) [Entitic vol] 8.1 fL Normal 7-12 [facility] Comment on above: Performed By: #### C BCA, PINR, 76896-3, BMP, 3040-3, 32175-2, 5643-2, LIVR, 26458-9, 67315-5, THYR, 62378-6, 75795-4 #### [facility] ([id number]) [address] [place] [address] 85591 Platelets (Bld) [#/Vol] 226 10*3/uL Normal 150-450 [facility] Comment on above: Performed By: #### C BCA, PINR, 89574-6, BMP, 3040-3, 57756-0, 5643-2, LIVR, 12162-0, 02969-5, THYR, 20366-2, 89766-2 #### [facility] ([id number]) [address] [place] [address] 06952 RBC COUNT 4.87 X10E12/L Normal 4.10-5.70 [facility] Comment on above: Performed By: #### C BCA, PINR, 41768-0, BMP, 3040-3, 48588-7, 5643-2, LIVR, 45219-5, 46231-3, THYR, 63653-8, 09235-9 #### [facility] ([id number]) [address] [place] [address] 57210 WBC (Bld) [#/Vol] 6.0 10*3/uL Normal 4.0-11.0 [facility] Comment on above: Performed By: #### C BCA, PINR, 79297-8, BMP, 3040-3, 51666-9, 5643-2, LIVR, 91974-8, 62440-9, THYR, 24681-0, 25147-2 #### [facility] ([id number]) [address] [place] [address] 12704 COMPREHENSIVE METABOLIC PANE [facility] 06-27-2023 Albumin [Mass/Vol] 3.5 g/dL Normal 3.2-5.3 [facility] Comment on above: Performed By: #### C BCA, PINR, 46180-5, BMP, 3040-3, 86032-2, 5643-2, LIVR, 78956-6, 05171-9, THYR, 31087-9, 48520-7 #### [facility] ([id number]) [address] [place] [address] 73311 ALP [Catalytic activity/Vol] 43 U/L Normal 39-130 [facility] Comment on above: Performed By: #### C BCA, PINR, 29575-0, BMP, 3040-3, 58391-6, 5643-2, LIVR, 10097-3, 02999-6, THYR, 82896-0, 62450-7 #### [facility] ([id number]) [address] [place] [address] 18946 ALT [Catalytic activity/Vol] 40 U/L Normal 0-40 [facility] Comment on above: Performed By: #### C BCA, PINR, 17947-6, BMP, 3040-3, 27480-7, 5643-2, LIVR, 78262-3, 18176-6, THYR, 26014-6, 12485-9 #### [facility] ([id number]) [address] [place] [address] 95055 Anion gap [Moles/Vol] 8 mmol/L Normal 5-15 [facility] Comment on above: Performed By: #### C BCA, PINR, 88450-2, BMP, 3040-3, 01447-2, 5643-2, LIVR, 56958-5, 14506-4, THYR, 22274-1, 18947-1 #### [facility] ([id number]) [address] [place] [address] [place] [address] AST [Catalytic activity/Vol] 63 U/L High 0-41 [facility] Comment on above: Performed By: #### C BCA, PINR, 95207-5, BMP, 3040-3, 37236-9, 5643-2, LIVR, 61153-2, 26311-4, THYR, 58931-2, 82193-0 #### [facility] ([id number]) [address] [place] [address] [place] [address] Bilirubin [Mass/Vol] 0.9 mg/dL Normal 0.3-1.2 [facility] Comment on above: Performed By: #### C BCA, PINR, 35700-3, BMP, 3040-3, 68262-9, 5643-2, LIVR, 25311-2, 12198-6, THYR, 33402-8, 34498-7 #### [facility] ([id number]) [address] [place] [address] [place] [address] Calcium [Mass/Vol] 8.7 mg/dL Normal 8.5-10.5 [facility] Comment on above: Performed By: #### C BCA, PINR, 18908-8, BMP, 3040-3, 28953-7, 5643-2, LIVR, 62282-6, 66726-4, THYR, 60539-3, 62873-9 #### [facility] ([id number]) [address] [place] [address] 55582 Chloride [Moles/Vol] 106 mmol/L Normal 98-109 [facility] Comment on above: Performed By: #### C BCA, PINR, 58582-5, BMP, 3040-3, 81498-1, 5643-2, LIVR, 06879-7, 56094-4, THYR, 93837-5, 09988-0 #### [facility] ([id number]) [address] [place] [address] 30738 CO2 [Moles/Vol] 23 mmol/L Normal 22-32 [facility] Comment on above: Performed By: #### C BCA, PINR, 05883-6, BMP, 3040-3, 51901-9, 5643-2, LIVR, 41940-0, 74345-8, THYR, 50993-0, 09185-1 #### [facility] ([id number]) [address] [place] [address] 65871 Creatinine [Mass/Vol] 1.22 mg/dL High 0.70-1.20 [facility] Comment on above: Result Comment: METH OD TRACEABLE TO IDMS STANDARD Performed By: #### C BCA, PINR, 54969-3, BMP, 3040-3, 38264-2, 5643-2, LIVR, 28995-1, 65274-8, THYR, 24690-9, 98523-7 #### [facility] ([id number]) [address] [place] [address] 46196 GFR/1.73 sq M.predicted among non-blacks MDRD (S/P/Bld) [Vol rate/Area] 62 mL/min/{1.73_m2} Normal >59 [facility] Comment on above: Result Comment: Reported eGFR is based on the CKD-EPI 2020 equation that does not use a race coefficient. Performed By: #### C BCA, PINR, 55675-6, BMP, 3040-3, 74082-3, 5643-2, LIVR, 94849-2, 50688-6, THYR, 13571-7, 07667-2 #### [facility] ([id number]) [address] [place] [address] 60631 Glucose [Mass/Vol] 153 mg/dL High 65-99 [facility] Comment on above: Performed By: #### C BCA, PINR, 06913-9, BMP, 3040-3, 53706-4, 5643-2, LIVR, 49214-6, 27463-9, THYR, 53528-5, 84987-3 #### [facility] ([id number]) [address] [place] [address] 01729 Potassium [Moles/Vol] 3.8 mmol/L Normal 3.5-5.0 [facility] Comment on above: Performed By: #### C BCA, PINR, 37703-6, BMP, 3040-3, 71258-6, 5643-2, LIVR, 85330-0, 37259-7, THYR, 35694-1, 10900-0 #### [facility] ([id number]) [address] [place] [address] 21887 Protein [Mass/Vol] 6.9 g/dL Normal 6.0-8.0 [facility] Comment on above: Performed By: #### C BCA, PINR, 24484-1, BMP, 3040-3, 65824-3, 5643-2, LIVR, 67229-0, 80653-0, THYR, 28310-4, 59262-5 #### [facility] ([id number]) [address] [place] [address] 12419 Sodium [Moles/Vol] 137 mmol/L Normal 134-146 [facility] Comment on above: Performed By: #### C BCA, PINR, 10115-3, BMP, 3040-3, 41047-6, 5643-2, LIVR, 18489-7, 74534-9, THYR, 27293-4, 63325-7 #### [facility] ([id number]) [address] [place] [address] Urea nitrogen [Mass/Vol] 30 mg/dL High 5-27 [facility] Comment on above: Performed By: #### C BCA, PINR, 56354-3, BMP, 3040-3, 86106-0, 5643-2, LIVR, 21821-5, 07743-9, THYR, 14329-5, 35819-1 #### [facility] ([id number]) [address] [place] [address] 74259 Glucose Glucometer (BldC) [M ass/Vol]on 06-27-2023 Glucose [Mass/Vol] 149 mg/dL High 65-99 [facility] Glucose [Mass/Vol] 138 mg/dL High 65-99 [facility] Glucose [Mass/Vol] 218 mg/dL High 65-99 [facility] Glucose [Mass/Vol] 144 mg/dL High 65-99 [facility] Glucose [Mass/Vol] 176 mg/dL High 65-99 [facility] HGB A1C (GLYCO-HGB)on 2022 Glucose [Mass/Vol] 160 mg/dL Normal [facility] Comment on above: Performed By: #### C BCA, PINR, 78105-3, BMP, 3040-3, 97721-3, 5643-2, LIVR, 32528-4, 33684-9, THYR, 97470-1, 52014-4 #### [facility] ([id number]) [address] [place] [address] 29120 HbA1c (Bld) [Mass fraction] 7.2 % High 4.4-5.6 [facility] Comment on above: Result Comment: NOTE ADA Guidelines Result HgbA1c Normal : less than 5.7 % Prediabetes : 5.7 % to 6.4 % Diabetes : > 6.4 % Use with caution in patients with abnormal hemoglobin variants as the half-life of red blood cells and in vivo glycation rates are affected. Performed By: #### C BCA, PINR, 00609-4, BMP, 3040-3, 01384-2, 5643-2, LIVR, 92246-6, 95545-1, THYR, 49288-4, 33158-9 #### [facility] ([id number]) [address] [place] [address] 56764 MAGNESIUMon 06-27-2023 Magnesium [Mass/Vol] 2.2 mg/dL Normal 1.8-2.6 [facility] Comment on above: Performed By: #### C BCA, PINR, 18316-8, BMP, 3040-3, 52836-4, 5643-2, LIVR, 65968-5, 97461-7, THYR, 94107-2, 72168-7 #### [facility] ([id number]) [address] [place] [address] 38493 Prostate specific Ag [Mass/V ol]on 06-27-2023 PSA SCREEN 1.78 ng/mL Normal 0.00-4.00 [facility] Comment on above: Result Comment: The method used for this test is Mariaa Viedea DXI chemiluminescent immunoassay. Values obtained by different assay methods cannot be used interchangeably. Performed By: #### C BCA, PINR, 86096-1, BMP, 3040-3, 48739-5, 5643-2, LIVR, 71268-4, 76653-7, THYR, 12435-1, 34156-6 #### [facility] ([id number]) [address] [place] [address] 08534 BASIC METABOLIC PANLon 06-26 Anion gap [Moles/Vol] 6 mmol/L Normal 5-15 [facility] Comment on above: Performed By: #### C BCA, PINR, 92609-5, BMP, 3040-3, 20721-1, 5643-2, LIVR, 76220-5, 44273-7, THYR, 14518-7, 90736-5 #### [facility] ([id number]) [address] [place] [address] 87866 Calcium [Mass/Vol] 8.6 mg/dL Normal 8.5-10.5 [facility] Comment on above: Performed By: #### C BCA, PINR, 84198-6, BMP, 3040-3, 11603-1, 5643-2, LIVR, 57871-0, 68670-5, THYR, 62169-2, 45237-0 #### [facility] ([id number]) [address] [place] [address] 28087 Chloride [Moles/Vol] 104 mmol/L Normal 98-109 [facility] Comment on above: Performed By: #### C BCA, PINR, 02675-8, BMP, 3040-3, 23635-3, 5643-2, LIVR, 76659-5, 22392-2, THYR, 02311-6, 66775-4 #### [facility] ([id number]) [address] [place] [address] 06256 CO2 [Moles/Vol] 25 mmol/L Normal 22-32 [facility] Comment on above: Performed By: #### C BCA, PINR, 07723-3, BMP, 3040-3, 81432-4, 5643-2, LIVR, 45501-2, 80492-8, THYR, 01143-3, 74576-6 #### [facility] ([id number]) [address] [place] [address] 97908 Creatinine [Mass/Vol] 1.07 mg/dL Normal 0.70-1.20 [facility] Comment on above: Result Comment: METH OD TRACEABLE TO IDMS STANDARD Performed By: #### C BCA, PINR, 49194-8, BMP, 3040-3, 99208-2, 5643-2, LIVR, 37926-2, 15591-6, THYR, 46665-3, 77673-1 #### [facility] ([id number]) [address] [place] [address] 46775 GFR/1.73 sq M.predicted among non-blacks MDRD (S/P/Bld) [Vol rate/Area] 73 mL/min/{1.73_m2} Normal >59 [facility] Comment on above: Result Comment: Reported eGFR is based on the CKD-EPI 2020 equation that does not use a race coefficient. Performed By: #### C BCA, PINR, 87086-6, BMP, 3040-3, 76374-5, 5643-2, LIVR, 51735-1, 86216-8, THYR, 76716-5, 56247-4 #### [facility] ([id number]) [address] [place] [address] 66334 Glucose [Mass/Vol] 129 mg/dL High 65-99 [facility] Comment on above: Performed By: #### C BCA, PINR, 11953-3, BMP, 3040-3, 73541-9, 5643-2, LIVR, 91374-1, 61657-0, THYR, 82838-5, 01004-5 #### [facility] ([id number]) [address] [place] [address] 34716 Potassium [Moles/Vol] 3.8 mmol/L Normal 3.5-5.0 [facility] Comment on above: Performed By: #### C BCA, PINR, 66609-0, BMP, 3040-3, 60300-2, 5643-2, LIVR, 91648-6, 16878-2, THYR, 81041-3, 41122-1 #### [facility] ([id number]) [address] [place] [address] 38351 Sodium [Moles/Vol] 135 mmol/L Normal 134-146 [facility] Comment on above: Performed By: #### C BCA, PINR, 35721-0, BMP, 3040-3, 96257-2, 5643-2, LIVR, 46881-6, 04169-4, THYR, 05067-2, 73512-4 #### [facility] ([id number]) [address] [place] [address], [place] [address] Urea nitrogen [Mass/Vol] 23 mg/dL Normal 5-27 [facility] Comment on above: Performed By: #### C BCA, PINR, 23333-9, BMP, 3040-3, 24853-6, 5643-2, LIVR, 64853-2, 54026-2, THYR, 70378-7, 37051-9 #### [facility] ([id number]) [address] [place] [address], [place] [address] CBC AND AUTO DIFFon 12-30-20 23 ABSOLUTE BASOPHIL 0.0 X10E9/L Normal 0.0-0.2 [facility] Comment on above: Performed By: #### C BCA, PINR, 97215-0, BMP, 3040-3, 55411-0, 5643-2, LIVR, 05225-5, 36734-7, THYR, 26743-8, 07292-2 #### [facility] ([id number]) [address] [place] [address], [place] [address] ABSOLUTE NEUTROPHIL 5.3 X10E9/L Normal 1.5-6.6 [facility] Comment on above: Performed By: #### C BCA, PINR, 32005-4, BMP, 3040-3, 29617-4, 5643-2, LIVR, 08526-0, 90026-0, THYR, 36956-8, 34191-8 #### [facility] ([id number]) [address] [place] [address], [place] [address] Basophils/100 WBC (Bld) 0.5 % Normal [facility] Comment on above: Performed By: #### C BCA, PINR, 79036-8, BMP, 3040-3, 12068-7, 5643-2, LIVR, 61712-7, 12866-3, THYR, 16785-2, 98187-6 #### [facility] ([id number]) [address] [place] [address] 26114 Eosinophils (Bld) [#/Vol] 0.0 10*3/uL Normal 0.0-0.4 [facility] Comment on above: Performed By: #### C BCA, PINR, 11000-2, BMP, 3040-3, 56608-5, 5643-2, LIVR, 97453-3, 03031-3, THYR, 30434-1, 38264-9 #### [facility] ([id number]) [address] [place] [address] 99222 Eosinophils/100 WBC (Bld) 0.1 % Normal [facility] Comment on above: Performed By: #### C BCA, PINR, 45826-5, BMP, 3040-3, 10397-0, 5643-2, LIVR, 16495-0, 20701-6, THYR, 34326-5, 59117-4 #### [facility] ([id number]) [address] [place] [address] [place] [address] Erythrocyte distribution width (RBC) [Ratio] 15.3 % High 11.5-15.0 [facility] Comment on above: Performed By: #### C BCA, PINR, 48473-8, BMP, 3040-3, 38375-6, 5643-2, LIVR, 42282-5, 48157-2, THYR, 24395-7, 49237-9 #### [facility] ([id number]) [address] [place] [address] 36074 Hematocrit (Bld) [Volume fraction] 37.7 % Low 39-49 [facility] Comment on above: Performed By: #### C BCA, PINR, 51048-3, BMP, 3040-3, 27324-0, 5643-2, LIVR, 09057-3, 83884-7, THYR, 87436-6, 86808-9 #### [facility] ([id number]) [address] [place] [address] 16554 Hemoglobin (Bld) [Mass/Vol] 13.1 g/dL Normal 13.0-17.0 [facility] Comment on above: Performed By: #### C BCA, PINR, 27497-8, BMP, 3040-3, 65461-7, 5643-2, LIVR, 56638-6, 43909-2, THYR, 47115-7, 20834-1 #### [facility] ([id number]) [address] [place] [address] 34584 Lymphocytes (Bld) [#/Vol] 0.4 10*3/uL Low 1.0-3.5 [facility] Comment on above: Performed By: #### C BCA, PINR, 63942-1, BMP, 3040-3, 29229-5, 5643-2, LIVR, 72793-5, 85952-9, THYR, 96134-7, 72250-7 #### [facility] ([id number]) [address] [place] [address] [place] [address] Lymphocytes/100 WBC (Bld) 6.7 % Normal [facility] Comment on above: Performed By: #### C BCA, PINR, 57850-1, BMP, 3040-3, 26811-3, 5643-2, LIVR, 52333-3, 14491-2, THYR, 56487-7, 70489-0 #### [facility] ([id number]) [address] [place] [address] 43180 MCH (RBC) [Entitic mass] 29.1 pg Normal 27-34 [facility] Comment on above: Performed By: #### C BCA, PINR, 35689-2, BMP, 3040-3, 22906-6, 5643-2, LIVR, 80793-7, 35724-8, THYR, 50176-6, 20267-5 #### [facility] ([id number]) [address] [place] [address] 08616 MCHC (RBC) [Mass/Vol] 34.8 g/dL Normal 32-36 [facility] Comment on above: Performed By: #### C BCA, PINR, 10916-1, BMP, 3040-3, 35031-5, 5643-2, LIVR, 06656-1, 38534-1, THYR, 63575-6, 43416-2 #### [facility] ([id number]) [address] [place] [address] 70702 MCV (RBC) [Entitic vol] 84 fL Normal 80-100 [facility] Comment on above: Performed By: #### C BCA, PINR, 48518-8, BMP, 3040-3, 03568-7, 5643-2, LIVR, 54187-1, 18826-9, THYR, 85909-2, 89448-0 #### [facility] ([id number]) [address] [place] [address] 12517 Monocytes (Bld) [#/Vol] 0.7 10*3/uL Normal 0-0.9 [facility] Comment on above: Performed By: #### C BCA, PINR, 62891-2, BMP, 3040-3, 97211-2, 5643-2, LIVR, 93995-3, 44877-3, THYR, 96427-7, 70657-1 #### [facility] ([id number]) [address] [place] [address] 90446 Monocytes/100 WBC (Bld) 10.7 % Normal [facility] Comment on above: Performed By: #### C BCA, PINR, 43066-4, BMP, 3040-3, 03900-6, 5643-2, LIVR, 40374-4, 30378-9, THYR, 42030-9, 88242-6 #### [facility] ([id number]) [address] [place] [address] 46617 Neutrophils/100 WBC (Bld) 82.0 % Normal [facility] Comment on above: Performed By: #### C BCA, PINR, 25769-8, BMP, 3040-3, 62007-8, 5643-2, LIVR, 58589-8, 92506-5, THYR, 78875-6, 47618-1 #### [facility] ([id number]) [address] [place] [address] 64788 Platelet mean volume (Bld) [Entitic vol] 7.5 fL Normal 7-12 [facility] Comment on above: Performed By: #### C BCA, PINR, 44499-9, BMP, 3040-3, 98222-2, 5643-2, LIVR, 66630-1, 71783-1, THYR, 17337-3, 68699-7 #### [facility] ([id number]) [address] [place] [address] 89622 Platelets (Bld) [#/Vol] 215 10*3/uL Normal 150-450 [facility] Comment on above: Performed By: #### C BCA, PINR, 99015-1, BMP, 3040-3, 22355-5, 5643-2, LIVR, 89478-4, 83458-2, THYR, 34284-7, 74787-2 #### [facility] ([id number]) [address] [place] [address] 45995 RBC COUNT 4.51 X10E12/L Normal 4.10-5.70 [facility] Comment on above: Performed By: #### C BCA, PINR, 13567-2, BMP, 3040-3, 78440-9, 5643-2, LIVR, 35821-1, 09384-6, THYR, 61955-2, 91547-4 #### [facility] ([id number]) [address] [place] [address] 17828 WBC (Bld) [#/Vol] 6.4 10*3/uL Normal 4.0-11.0 [facility] Comment on above: Performed By: #### C BCA, PINR, 93689-7, BMP, 3040-3, 01694-2, 5643-2, LIVR, 15785-9, 81588-3, THYR, 50126-2, 92381-8 #### [facility] ([id number]) [address] [place] [address] BRAIN WO CONTon 3 CT BRAIN WO CONT CT BRAIN WO [...] Dk Larose DO on 06/26/2023 2:11 AM5 Les Cabral MD have personally reviewed the image(s) and agree with and/or edited the report Finalized by Les Todd MD on 06/26/2023 2:19 AM Normal [facility] ETHANOLon 06-26-2023 Ethanol [Mass/Vol] mg/dL Normal 0.00-0.08 [facility] Comment on above: Result Comment: This report is intended for use in clinical monitoring or management of patients. Performed By: #### C BCA, PINR, 07454-5, BMP, 3040-3, 11590-3, 5643-2, LIVR, 66899-1, 25478-8, THYR, 29822-4, 92394-4 #### [facility] ([id number]) [address] [place] [address] 64328 Fibrin D-dimer DDU (PPP) [Ma ss/Vol]on 06-26-2023 D DIMER 220 ng/mL DDU Normal <255 [facility] Comment on above: Result Comment: Results <255 ng/mL DDU: The presence of a VTE can safely be excluded with a negative D-Dimer result and Wells score. A negative result doesn't exclude the possibility of DIC. The test be repeated along with other diagnostic tests if the patient's symptoms persist or worsen. [email or web address] Performed By: #### C BCA, PINR, 06669-2, BMP, 3040-3, 85910-9, 5643-2, LIVR, 48182-5, 31559-0, THYR, 08121-6, 86240-8 #### [facility] ([id number]) [address] [place] [address] 23810 Glucose Glucometer (BldC) [M ass/Vol]on 06-26-2023 Glucose [Mass/Vol] 214 mg/dL High 65-99 [facility] Glucose [Mass/Vol] 159 mg/dL High 65-99 [facility] Glucose [Mass/Vol] 114 mg/dL High 65-99 [facility] LIPASEon 06-26-2023 Lipase [Catalytic activity/Vol] 27 U/L Normal 17-40 [facility] Comment on above: Performed By: #### C BCA, PINR, 24938-3, BMP, 3040-3, 25685-5, 5643-2, LIVR, 63395-4, 44565-6, THYR, 32878-1, 86147-2 #### [facility] ([id number]) [address] [place] [address] 12218 LIVER PANELon 06-26-2023 Albumin [Mass/Vol] 4.0 g/dL Normal 3.2-5.3 [facility] Comment on above: Performed By: #### C BCA, PINR, 12776-5, BMP, 3040-3, 86671-1, 5643-2, LIVR, 93452-5, 26859-7, THYR, 88575-3, 48333-6 #### [facility] ([id number]) [address] [place] [address] 76421 ALP [Catalytic activity/Vol] 46 U/L Normal 39-130 [facility] Comment on above: Performed By: #### C BCA, PINR, 10594-1, BMP, 3040-3, 25982-2, 5643-2, LIVR, 39239-3, 57635-5, THYR, 30353-2, 53047-6 #### [facility] ([id number]) [address] [place] [address] [place] [address] ALT [Catalytic activity/Vol] 30 U/L Normal 0-40 [facility] Comment on above: Performed By: #### C BCA, PINR, 36309-5, BMP, 3040-3, 13307-2, 5643-2, LIVR, 84245-3, 38193-2, THYR, 97617-5, 29124-9 #### [facility] ([id number]) [address] [place] [address] 96516 AST [Catalytic activity/Vol] 58 U/L High 0-41 [facility] Comment on above: Performed By: #### C BCA, PINR, 88403-3, BMP, 3040-3, 97475-4, 5643-2, LIVR, 47878-3, 58454-3, THYR, 52340-2, 95748-5 #### [facility] ([id number]) [address] [place] [address] 11387 Bilirubin [Mass/Vol] 1.2 mg/dL Normal 0.3-1.2 [facility] Comment on above: Performed By: #### C BCA, PINR, 43165-8, BMP, 3040-3, 24146-4, 5643-2, LIVR, 32297-7, 56950-5, THYR, 79642-5, 67617-1 #### [facility] ([id number]) [address] [place] [address] 26854 Bilirubin.direct [Mass/Vol] 0.2 mg/dL Normal 0.0-0.4 [facility] Comment on above: Performed By: #### C BCA, PINR, 33655-3, BMP, 3040-3, 16740-9, 5643-2, LIVR, 93715-7, 47643-7, THYR, 67610-1, 71084-5 #### [facility] ([id number]) [address] [place] [address] 33357 Protein [Mass/Vol] 7.0 g/dL Normal 6.0-8.0 [facility] Comment on above: Performed By: #### C BCA, PINR, 90876-8, BMP, 3040-3, 80785-9, 5643-2, LIVR, 01774-5, 60217-1, THYR, 65732-1, 39123-8 #### [facility] ([id number]) [address] [place] [address] 26436 Lactate (P zane) [Moles/Vol]o n 06-26-2023 LACTATE W/REFLEX 1.3 mmol/L Normal 0.4-2.0 [facility] Comment on above: Result Comment: Result did not trigger repeat Lactate, re-order if needed. Performed By: #### C BCA, PINR, 81283-1, BMP, 3040-3, 56694-9, 5643-2, LIVR, 95173-2, 19082-8, THYR, 76496-4, 26037-2 #### [facility] ([id number]) [address] [place] [address] 83991 MAGNESIUMon 06-26-2023 Magnesium [Mass/Vol] 1.7 mg/dL Low 1.8-2.6 [facility] Comment on above: Performed By: #### C BCA, PINR, 03904-7, BMP, 3040-3, 04442-4, 5643-2, LIVR, 14916-8, 70066-6, THYR, 06834-6, 21535-2 #### [facility] ([id number]) [address] [place] [address] 86260 Natriuretic peptide B [Mass/ Vol]on 06-26-2023 Natriuretic peptide B (Bld) [Mass/Vol] 142 pg/mL High <100.0 [facility] Comment on above: Performed By: #### C BCA, PINR, 09278-0, BMP, 3040-3, 96929-6, 5643-2, LIVR, 97348-2, 27772-9, THYR, 08972-0, 12171-1 #### [facility] ([id number]) [address] [place] [address] 38882 POTASSIUMon 06-26-2023 Potassium [Moles/Vol] 3.7 mmol/L Normal 3.5-5.0 [facility] Comment on above: Performed By: #### C BCA, PINR, 40498-1, BMP, 3040-3, 45648-4, 5643-2, LIVR, 72189-0, 37726-3, THYR, 77664-4, 72592-8 #### [facility] ([id number]) [address] [place] [address] 08211 PROTIME AND INRon 06-26-2023 INR Coag (PPP) [Relative time] 1.2 {INR} High 0.8-1.1 [facility] Comment on above: Performed By: #### C BCA, PINR, 55079-5, BMP, 3040-3, 29387-2, 5643-2, LIVR, 45378-3, 75825-8, THYR, 43539-5, 09907-5 #### [facility] ([id number]) [address] [place] [address] 17465 PT Coag (PPP) [Time] 14.0 s High 9.8-13.2 [facility] Comment on above: Result Comment: NEW REFERENCE RANGE Performed By: #### C BCA, PINR, 87091-1, BMP, 3040-3, 60459-2, 5643-2, LIVR, 50375-8, 68131-9, THYR, 12702-0, 28692-8 #### [facility] ([id number]) [address] [place] [address] 55019 Procalcitonin IA [Mass/Vol]o n 06-26-2023 PROCALCITONIN 0.07 ng/mL High <0.05 [facility] Comment on above: Result Comment: NOTE <0.50 ng/mL - Low risk of severe sepsis and/or septic shock. <2.00 ng/mL - Recommend retesting within 6-24 hours. >2.00 ng/mL - High risk of sepsis and/or septic shock. Performed By: #### C BCA, PINR, 92833-3, BMP, 3040-3, 57470-8, 5643-2, LIVR, 55106-0, 54630-6, THYR, 24916-7, 89731-6 #### [facility] ([id number]) [address] [place] [address] 48150 SARS/FLU A+B/RSV by NAAT/Mol ecularon 06-26-2023 SARS/FLU [...] operators who are performing tests using either [employer] or [employer] systems and is limited to laboratories that [...] repeat. Fact Sheet for Healthcare Providers: https://www.fda.gov/m edia/508958/download Fact Sheet for Patients: https://www.fda.gov/m edia/988767/download [facility] Comment on above: Performed By: #### C BCA, PINR, 97149-7, BMP, 3040-3, 10433-5, 5643-2, LIVR, 80491-9, 56629-8, THYR, 45090-0, 47467-1 #### [facility] ([id number]) [address] [place] [address] 25302 THYROID PROFILEon 06-26-2023 Free T4 [Mass/Vol] 0.95 ng/dL Normal 0.61-1.60 [facility] Comment on above: Performed By: #### C BCA, PINR, 72310-6, BMP, 3040-3, 37484-1, 5643-2, LIVR, 64088-5, 32713-5, THYR, 90515-8, 74025-6 #### [facility] ([id number]) [address] [place] [address] 48367 TSH 1.81 uIU/mL Normal 0.49-4.67 [facility] Comment on above: Performed By: #### C BCA, PINR, 38743-4, BMP, 3040-3, 70781-1, 5643-2, LIVR, 24792-1, 66346-2, THYR, 65370-0, 82747-3 #### [facility] ([id number]) [address] [place] [address] 90727 TROPONIN Ion 06-26-2023 Troponin I.cardiac [Mass/Vol] 0.03 ng/mL Normal 0.00-0.04 [facility] Comment on above: Performed By: #### C BCA, PINR, 53601-8, BMP, 3040-3, 81004-9, 5643-2, LIVR, 81799-6, 23285-5, THYR, 99113-4, 55931-9 #### [facility] ([id number]) [address] [place] [address] 13903 URINE CULTUREon 06-26-2023 Bacteria identified Cx Nom (U) CULTURE RESULTS 10-50,000 ORGANISMS/mL NORMAL UROGENITAL POLO Normal [facility] Comment on above: Performed By: #### C BCA, PINR, 37372-8, BMP, 3040-3, 31933-6, 5643-2, LIVR, 75113-0, 28957-4, THYR, 35503-8, 80978-0 #### [facility] ([id number]) [address] [place] [address] 34695 URN MACROSCOPIC NURon 2022 BILIRUBIN TORRES Small Abnormal NEG [facility] Comment on above: Performed By: #### C BCA, PINR, 10601-9, BMP, 3040-3, 35405-9, 5643-2, LIVR, 72442-5, 61855-9, THYR, 24167-2, 64889-0 #### [facility] ([id number]) [address] [place] [address] [place] [address] BLOOD/HGB TORRES Large Abnormal NEG [facility] Comment on above: Performed By: #### C BCA, PINR, 57383-2, BMP, 3040-3, 55083-1, 5643-2, LIVR, 28320-9, 66011-6, THYR, 35095-8, 54992-8 #### [facility] ([id number]) [address] [place] [address] [place] [address] GLUCOSE TORRES 100 mg/dL Abnormal NEG [facility] Comment on above: Performed By: #### C BCA, PINR, 52110-3, BMP, 3040-3, 98224-5, 5643-2, LIVR, 49098-9, 28807-4, THYR, 78891-0, 66116-5 #### [facility] ([id number]) [address] [place] [address] [place] [address] KETONES TORRES 15 mg/dL Abnormal NEG [facility] Comment on above: Performed By: #### C BCA, PINR, 56392-3, BMP, 3040-3, 68666-1, 5643-2, LIVR, 23351-5, 37567-4, THYR, 24071-8, 89226-0 #### [facility] ([id number]) [address] [place] [address] 16642 LEUKOCYTE ESTERASE TORRES Negative Normal NEG [facility] Comment on above: Performed By: #### C BCA, PINR, 52807-0, BMP, 3040-3, 57551-3, 5643-2, LIVR, 30881-2, 36167-3, THYR, 05999-7, 27474-3 #### [facility] ([id number]) [address] [place] [address] 88837 NITRITE TORRES Negative Normal NEG [facility] Comment on above: Performed By: #### C BCA, PINR, 80294-8, BMP, 3040-3, 04104-2, 5643-2, LIVR, 70588-6, 23077-5, THYR, 40553-6, 71996-0 #### [facility] ([id number]) [address] [place] [address] 38503 PH TORRES 5.5 Normal 5.0-8.5 [facility] Comment on above: Performed By: #### C BCA, PINR, 08617-1, BMP, 3040-3, 82165-4, 5643-2, LIVR, 43860-2, 23294-6, THYR, 19692-8, 46711-1 #### [facility] ([id number]) [address] [place] [address] 58456 PROTEIN TORRES 100 mg/dL Abnormal NEG [facility] Comment on above: Performed By: #### C BCA, PINR, 66425-7, BMP, 3040-3, 29213-0, 5643-2, LIVR, 92991-7, 44644-8, THYR, 28424-6, 25485-8 #### [facility] ([id number]) [address] [place] [address] 54684 SPECIFIC GRAVITY TORRES >=1.030 Normal 1.003-1.035 [address] [facility] Comment on above: Performed By: #### C BCA, PINR, 62482-7, BMP, 3040-3, 65611-1, 5643-2, LIVR, 03350-5, 09582-2, THYR, 26935-5, 33446-4 #### [facility] ([id number]) [address] [place] [address] 62719 UROBILINOGEN TORRES 0.2 eu/dL Normal <1.1 [facility] Comment on above: Performed By: #### C BCA, PINR, 62340-2, BMP, 3040-3, 04295-8, 5643-2, LIVR, 53898-3, 35180-3, THYR, 84230-0, 99583-7 #### [facility] ([id number]) [address] [place] [address] 83963 XR CHEST 2 VWSon 06-26-2023 XR CHEST [...] Todd MD on 06/26/2023 2:13 AM Normal [facility] aPTT Coag (PPP) [Time]on aPTT Coag (Bld) [Time] 36 s Normal 26-37 [facility] Comment on above: Result Comment: NEW REFERENCE RANGE Performed By: #### C BCA, PINR, 85081-0, BMP, 3040-3, 99600-7, 5643-2, LIVR, 61416-4, 62080-5, THYR, 81227-0, 40214-4 #### [facility] ([id number]) [address] [place] [address] [place] [address] lamoTRIgine [Mass/Vol]on LAMOTRIGINE <0.5 Low 1.0-13.0 [facility] Comment on above: Result Comment: NOTE This test was developed and its performance characteristics determined by 's [facility] [place] ([facility]). It has not been cleared or approved by the FDA. [facility] is regulated under CLIA as qualified to perform high-complexity testing. This test is used for clinical purposes. It should not be regarded as investigational or for research. Test Performed By: [place] [address] Program Director Substance Abuse: Joseph Rankin III, M.D. [place] #[id number] Performed By: #### C BCA, PINR, 75795-4, BMP, 3040-3, 11592-2, 5643-2, LIVR, 77183-5, 51475-0, THYR, 66318-1, 86087-4 #### [facility] ([id number]) [address] [place] [address], [place] [address] A1C HEMOGLOBINon 05-24-2023 HbA1c (Bld) [Mass fraction] 9.1 % [employer] Other Glucose - FINGER STICKon Glucose [Mass/Vol] 238 mg/dL [employer] Other HbA1c (Bld) [Mass fraction]o n 05-24-2023 A1C HEMOGLOBIN [employer] Other A1C HEMOGLOBINon 02-08-2023 HbA1c (Bld) [Mass fraction] 6.9 % [employer] Other Glucose - FINGER STICKon Glucose [Mass/Vol] 183 mg/dL [employer] Other HbA1c (Bld) [Mass fraction]o n 02-08-2023 A1C HEMOGLOBIN [employer] Other A1C HEMOGLOBINon 10-21-2022 HbA1c (Bld) [Mass fraction] 6.5 % [employer] Other Glucose - FINGER STICKon Glucose [Mass/Vol] 122 mg/dL [employer] Other HbA1c (Bld) [Mass fraction]o n 10-21-2022 A1C HEMOGLOBIN [employer] Other CEA BLDon 07-22-2022 Carcinoembryonic Ag [Mass/Vol] 1.4 ng/mL <=2.9 ng/mL CBC W Auto Differential pane l (Bld)on 07-21-2022 Basophils (Bld) [#/Vol] 0.04 10*3/uL <0.11 k/uL Basophils/100 WBC (Bld) 0.4 % C [facility] Differential cell count method Nom (Bld) Auto Eosinophils (Bld) [#/Vol] 0.27 10*3/uL <0.46 k/uL Eosinophils/100 WBC (Bld) 3.0 % Erythrocyte distribution width (RBC) [Ratio] 13.5 % 11.5 - 15.0 % Hematocrit (Bld) [Volume fraction] 41.5 % 39.0 - 51.0 % Hemoglobin (Bld) [Mass/Vol] 13.7 g/dL 13.0 - 17.0 g/dL Immature granulocytes (Bld) [#/Vol] <0.10 k/uL Immature granulocytes/100 WBC (Bld) 0.2 % Lymphocytes (Bld) [#/Vol] 1.50 10*3/uL 1.00 - 4.00 k/uL Lymphocytes/100 WBC (Bld) 16.6 % MCH (RBC) [Entitic mass] 28.4 pg 26.0 - 34.0 pg MCHC (RBC) [Mass/Vol] 33.0 g/dL 30.5 - 36.0 g/dL MCV (RBC) [Entitic vol] 85.9 fL 80.0 - 100.0 fL Monocytes (Bld) [#/Vol] 0.53 10*3/uL <0.87 k/uL Monocytes/100 WBC (Bld) 5.9 % C [facility] Neutrophils (Bld) [#/Vol] 6.67 10*3/uL 1.45 - 7.50 k/uL Neutrophils/100 WBC (Bld) 73.9 % Nucleated RBC (Bld) [#/Vol] <0.01 k/uL Nucleated RBC/100 WBC (Bld) [Ratio] 0.0 /100 WBC Platelet mean volume (Bld) [Entitic vol] 10.1 fL 9.0 - 12.7 fL Platelets (Bld) [#/Vol] 240 10*3/uL 150 - 400 k/uL RBC (Bld) [#/Vol] 4.83 10*6/uL 4.20 - 6.0 0 m/uL WBC (Bld) [#/Vol] 9.03 10*3/uL 3.70 - 11.00 k/uL Comprehensive metabolic 2000 panelon 07-21-2022 Albumin [Mass/Vol] 4.6 g/dL 3.9 - 4.9 g/dL ALP [Catalytic activity/Vol] 69 U/L 38 - 113 U/L ALT [Catalytic activity/Vol] 33 U/L 10 - 54 U/L Anion gap [Moles/Vol] 11 mmol/L 9 - 18 mmol/L AST [Catalytic activity/Vol] 26 U/L 14 - 40 U/L Bilirubin [Mass/Vol] 0.8 mg/dL 0.2 - 1 .3 mg/dL Calcium [Mass/Vol] 9.6 mg/dL 8.5 - 10. 2 mg/dL Chloride [Moles/Vol] 99 mmol/L 97 - 10 5 mmol/L CO2 [Moles/Vol] 28 mmol/L 22 - 30 mmol/L Creatinine [Mass/Vol] 1.27 mg/dL High 0.73 - 1.22 mg/dL Estimated Glomerular Filtration Rate 60 mL/min/1.73m >=60 mL/min/1.73 m Glucose [Mass/Vol] 116 mg/dL High 74 - 99 mg/dL Potassium [Moles/Vol] 3.6 mmol/L Low 3.7 - 5.1 mmol/L Protein [Mass/Vol] 7.3 g/dL 6.3 - 8.0 g/dL Sodium [Moles/Vol] 138 mmol/L 136 - 144 mmol/L Urea nitrogen [Mass/Vol] 22 mg/dL 9 - 24 mg/dL A1C HEMOGLOBINon 07-20-2022 HbA1c (Bld) [Mass fraction] 6.7 % [employer] Other Glucose - FINGER STICKon Glucose [Mass/Vol] 122 mg/dL [employer] Other HbA1c (Bld) [Mass fraction]o n 07-20-2022 A1C HEMOGLOBIN [facility] [employer] Other Glucose Glucometer (BldC) [M ass/Vol]Ordered By: Brandy Banks on 05-11-2022 Glucose [Mass/Vol] 122 mg/dL [facility] Comment on above: Random Glucose Refer ence Range is dependent on time and content of last meal. Glucose of more than 200 mg/dL in a nonstressed, ambulatory subject supports the diagnosis of Diabetes Mellitus. No Panel InformationOrdered By: Brandy Banks on 05-11-2022 Bedside Glucose Comment Glu2: cleaned meter [facility] COVID-19 SOFIAOrdered By: Reyes Banks on 05-07-2022 SARS-CoV+SARS-CoV-2 (COVID-19) Ag IA.rapid Ql (Resp) Negative Negative [facility] Comment on above: This is a duplicate [place] SARS Antigen (ISAIAS) result to be used for statistical tracking purpose only. No Panel InformationOrdered By: Brandy Banks on 05-07-2022 SARS Antigen (LFIA) [facility] A1C HEMOGLOBINon 03-26-2022 HbA1c (Bld) [Mass fraction] 6.4 % [facility] [employer] Other Glucose - FINGER STICKon Glucose [Mass/Vol] 106 mg/dL [employer] Other HbA1c (Bld) [Mass fraction]o n 03-26-2022 A1C HEMOGLOBIN [employer] Other A1C HEMOGLOBINon 08-26-2021 HbA1c (Bld) [Mass fraction] 6.9 % [employer] Other Glucose - FINGER STICKon Glucose [Mass/Vol] 140 mg/dL [employer] Other HbA1c (Bld) [Mass fraction]o n 08-26-2021 A1C HEMOGLOBIN [employer] Other CNPNon 07-23-2021 CNPN Telephone ([facility]) GAGANDEEP AHN ([id number]) 1950 M Date Time Provider Department 07/23/21 LUL OROPEZA During your visit today, we recorded the following information about you: Lul Oropeza RN 07/23/2021 1:15 PM Signed Received call from Laura at [facility] stating pt's blood was [...] As Directed March 31, 2019 10:06am 03-31-2019 [facility] ([id number]) - busPIRone (BUSPAR) 10 mg tablet Take 10 mg by mouth three times daily. - QUEtiapine (SEROQUEL) 50 mg tablet Take 50 mg by mouth twice daily. - insulin detemir U-100 (LEVEMIR) 100 unit/mL (3 mL) injection pen insulin detemir Insulin Detemir U-100 Active 17 UNIT Subcutaneous Daily March 31, 2019 10:08am 03-31-2019 [facility] ([id number]) - tiotropium (SPIRIVA) 18 mcg inhalation capsule tiotropium Tiotropium [place] Active 2 PUFF Inhalation Daily March 31, 2019 10:06am 03-31-2019 [facility] ([id number]) - losartan (COZAAR) 50 mg tablet Take [...] order Admin (more content not included)... Normal [facility] CEAon 07-22-2021 CEA 1.2 ng/mL Normal 0.0-2.9 [facility] Comment on above: Result Comment: Test analyzed by the [employer] method. Performed By: #### C BRENT #### [facility] [address] [place], [place] [address] CNOVSPon 07-22-2021 CNOVSP Visit (SP) Office ([facility]) GAGANDEEP AHN ([id number]) 1950 M Date Time Provider Department 07/22/21 2:15 PM MOISE RAMOS During your visit today, we recorded the following information about you: Temperature Pulse Respiration Blood pressure 97.9 degrees 58/minute 18/minute 139/66 Weight Height 87.5 kg 1.765 m Moise Ramos MD 07/22/2021 9:06 PM Signed PATIENT NAME: Gagandeep Ahn DATE: 07/22/2021 PRIMARY CARE PHYSICIAN: Kota Hyman CNP (NOMS) OTHER PHYSICIANS: Dr. Brandy Banks, [...] As Directed March 31, 2019 10:06am 03-31-2019 [facility] ([id number]) busPIRone (BUSPAR) 10 mg tablet Take 10 mg by mouth three times daily. QUEtiapine (SEROQUEL) 50 mg tablet Take 50 mg by mouth twice daily. insulin detemir U-100 (LEVEMIR) 100 unit/mL (3 mL) injection pen insulin detemir Insulin Detemir U-100 Active 17 UNIT Subcutaneous Daily March 31, 2019 10:08am 03-31-2019 [facility] ([id number]) tiotropium (SPIRIVA) 18 mcg inhalation capsule tiotropium Tiotropium [place] Active 2 PUFF Inhalation Daily March 31, 2019 10:06am 03-31-2019 [facility] (06266) losartan (COZAAR) 50 mg tablet Take 50 [...] de-access according (more content not included)... Normal [facility] Joaquin 07-22-2021 [facility] Telephone ([facility]) GAGANDEEP AHN ([id number]) 1950 M Date Time Provider Department 07/22/21 MOISE RAMOS During your visit today, we recorded the following information about you: Isabella Lyons 07/22/2021 2:43 PM Signed Patient has been scheduled for follow up w/ Dr. Banks regarding port removal on 08/01/21 @ 10:30 am. Isabella Loyns Allergies As of Date: 07/22/2021 (No Known [...] As Directed March 31, 2019 10:06am 03-31-2019 [facility] ([id number]) - busPIRone (BUSPAR) 10 mg tablet Take 10 mg by mouth three times daily. - QUEtiapine (SEROQUEL) 50 mg tablet Take 50 mg by mouth twice daily. - insulin detemir U-100 (LEVEMIR) 100 unit/mL (3 mL) injection pen insulin detemir Insulin Detemir U-100 Active 17 UNIT Subcutaneous Daily March 31, 2019 10:08am 03-31-2019 [facility] ([id number]) - tiotropium (SPIRIVA) 18 mcg inhalation capsule tiotropium Tiotropium [place] Active 2 PUFF Inhalation Daily March 31, 2019 10:06am 03-31-2019 [facility] (45559) - losartan (COZAAR) 50 mg tablet Take [...] intravenously, once (more content not included)... Normal [facility] Comp Metabolic Panelon 07-22 Albumin [Mass/Vol] 4.3 g/dL Normal 3.9-4.9 [facility] Comment on above: Performed By: #### C MP #### [facility] [address] [place], [place] [address] ALP [Catalytic activity/Vol] 43 U/L Normal 38-113 [facility] Comment on above: Performed By: #### C MP #### [place] [address] [place], [place] [address] ALT [Catalytic activity/Vol] 25 U/L Normal 10-54 [facility] Comment on above: Result Comment: Resu lts may be falsely increased due to interference by hemolysis. Suggest reorder as clinically indicated. Performed By: #### C MP #### [address] [place], [place] [address] Anion Gap Duplicate request Normal 9-18 [facility] Comment on above: Result Comment: Acco unt Credited DUPLICATE ORDER MW [id number] 2350 Performed By: #### C MP #### [address] [place], [place] [address] AST Unable to assay. Specimen hemolyzed. Normal 14-40 [facility] Comment on above: Performed By: #### C MP #### [facility] [address] [place], [place] [address] Bilirubin [Mass/Vol] 0.7 mg/dL Normal 0.2-1.3 [facility] Comment on above: Performed By: #### C MP #### [facility] [address] [place], [place] [address] Calcium [Mass/Vol] 9.7 mg/dL Normal 8.5-10.2 [facility] Comment on above: Performed By: #### C MP #### [place] [address] [place] [address] Chloride Duplicate request Normal 97-105 [facility] Comment on above: Result Comment: Acco unt Credited DUPLICATE ORDER MW [id number] 2350 Performed By: #### C MP #### [facility] [address] [place] [address] CO2 [Moles/Vol] 27 mmol/L Normal 22-30 [facility] Comment on above: Performed By: #### C MP #### [address] [place] [address] Creatinine [Mass/Vol] 0.87 mg/dL Normal 0.73-1.22 [facility] Comment on above: Performed By: #### C MP #### [place] [address] eGFR- Amer. >60 Normal [facility] Comment on above: Performed By: #### C MP #### [place] [address] eGFR-All Other Races >60 Normal [facility] Comment on above: Result Comment: eGFR (Estimated [...] [email or web address]. Performed By: #### C MP #### [facility] [address] [place], [place] [address] Glucose [Mass/Vol] 83 mg/dL Normal 74-99 [facility] Comment on above: Result Comment: The [place] [employer] (ADA) provides guidance for cutoff [...] Standards of Medical Care in Diabetes 2016, [place] [employer]. Diabetes Care. 2016.39(Suppl 1). Performed By: #### C MP #### [facility] [place] [address] Potassium Duplicate request Normal 3.7-5.1 [facility] Comment on above: Result Comment: Acco unt Credited DUPLICATE ORDER MW [id number] 2350 Performed By: #### C MP #### [facility] [place] [id number] Protein [Mass/Vol] 7.0 g/dL Normal 6.3-8.0 [facility] Comment on above: Performed By: #### C MP #### [facility] [address] [place] [address] Sodium Duplicate request Normal 136-144 [facility] [facility], [place], operated [facility] Comment on above: Result Comment: Acco unt Credited DUPLICATE ORDER MW [id number] Performed By: #### C MP #### [address] [place], [place] [address] Urea nitrogen [Mass/Vol] 27 mg/dL High 9-24 [facility] Comment on above: Performed By: #### C MP #### [address] [place], [place] [id number] Albumin [Mass/Vol] 4.1 g/dL Normal 3.9-4.9 [facility] Comment on above: Performed By: #### C MP #### [address], [place] [address] ALP [Catalytic activity/Vol] 44 U/L Normal 38-113 [facility] Comment on above: Performed By: #### C MP #### [address] [place], [place] [address] ALT [Catalytic activity/Vol] 27 U/L Normal 10-54 [facility] Comment on above: Result Comment: Resu lts may be falsely increased due to interference by hemolysis. Suggest reorder as clinically indicated. Performed By: #### C MP #### [address] [place], [place] [address] Anion gap [Moles/Vol] 16 mmol/L Normal 9-18 [facility] Comment on above: Performed By: #### C MP #### [facility] [address] [place], [place] [address] AST [Catalytic activity/Vol] 41 U/L High 14-40 [facility] Comment on above: Result Comment: Resu lts may be falsely increased due to interference by hemolysis. Suggest reorder as clinically indicated. Performed By: #### C MP #### [address] [place], [place] [address] Bilirubin [Mass/Vol] 0.6 mg/dL Normal 0.2-1.3 [facility] Comment on above: Performed By: #### C MP #### [address] [place], [place] [address] Calcium [Mass/Vol] 10.0 mg/dL Normal 8.5-10.2 [facility] Comment on above: Performed By: #### C MP #### [facility] [address] [address] Chloride [Moles/Vol] 103 mmol/L Normal 97-105 [facility] Comment on above: Performed By: #### C MP #### [facility] [address] [address] CO2 [Moles/Vol] 22 mmol/L Normal 22-30 [facility] Comment on above: Performed By: #### C MP #### [place] [address] [place] [address] Creatinine [Mass/Vol] 0.85 mg/dL Normal 0.73-1.22 [facility] Comment on above: Performed By: #### C MP #### [place] [address] [place] [address] eGFR- Amer. >60 Normal [facility] Comment on above: Performed By: #### C MP #### [place] [address] [place] [address] eGFR-All Other Races >60 Normal [facility] Comment on above: Result Comment: eGFR (Estimated [...] [email or web address]. Performed By: #### C MP #### [place] [address] [place] [id number] Glucose [Mass/Vol] 67 mg/dL Low 74-99 [facility] Comment on above: Result Comment: The [place] Diabetes Association (ADA) provides guidance for cutoff [...] Standards of Medical Care in Diabetes 2016, [place] [employer]. Diabetes Care. 2016.39(Suppl 1). Performed By: #### C MP #### Linebacker [facility] [place] [id number] Potassium Unable to assay due to interference from hemolysis. Suggest reorder as clinically indicated. Normal 3.7-5.1 [facility] Comment on above: Performed By: #### C MP #### [facility] [place], [place] [address] Protein [Mass/Vol] 7.1 g/dL Normal 6.3-8.0 [facility] Comment on above: Performed By: #### C MP #### [facility] [place], [place] [address] Sodium [Moles/Vol] 141 mmol/L Normal 136-144 [facility] Comment on above: Performed By: #### C MP #### [address] [place], [place] [address] Urea nitrogen [Mass/Vol] 26 mg/dL High 9-24 [facility] Comment on above: Performed By: #### C MP #### [address] [place], [place] [address] Remote CBCDIF (for [facility] use o nly)on 07-22-2021 Abs Baso 0.05 k/uL Normal <0.11 [facility] Abs [place] 0.68 k/uL Normal <0.87 [facility] Abs Neut 6.20 k/uL Normal 1.45-7.50 [facility] Absolute nRBC <0.01 Normal <0.01 [facility] Basophils/100 WBC (Bld) 0.5 % Normal [facility] DTYPE Auto Diff Normal [facility] Eosinophils (Bld) [#/Vol] 0.29 10*3/uL Normal <0.46 [facility] Eosinophils/100 WBC (Bld) 3.2 % Normal [facility] Erythrocyte distribution width (RBC) [Ratio] 14.0 % Normal 11.5-15.0 [facility] Hematocrit (Bld) [Volume fraction] 41.3 % Normal 39.0-51.0 [facility] Hemoglobin (Bld) [Mass/Vol] 13.5 g/dL Normal 13.0-17.0 [facility] Lymphocytes (Bld) [#/Vol] 1.95 10*3/uL Normal 1.00-4.00 [facility] Lymphocytes/100 WBC (Bld) 21.3 % Normal [facility] MCH 27.8 pG Normal 26.0-34.0 [facility] MCHC (RBC) [Mass/Vol] 32.7 g/dL Normal 30.5-36.0 [facility] MCV (RBC) [Entitic vol] 85.2 fL Normal 80.0-100.0 [facility] Monocytes/100 WBC (Bld) 7.4 % Normal [facility] Neutrophils/100 WBC (Bld) 67.6 % Normal [facility] NRBCs 0.0 /[address] [facility] Platelet mean volume (Bld) [Entitic vol] 11.3 fL Normal 9.0-12.7 [facility] Platelets (Bld) [#/Vol] 229 10*3/uL Normal 150-400 [facility] RBC (Bld) [#/Vol] 4.85 10*6/uL Normal 4.20-6.00 [facility] WBC (Bld) [#/Vol] 9.17 10*3/uL Normal 3.70-11.00 [facility] A1C HEMOGLOBINon 07-14-2021 HbA1c (Bld) [Mass fraction] 8.5 % [facility] Other Glucose - FINGER STICKon Glucose [Mass/Vol] 275 mg/dL [facility] Other HbA1c (Bld) [Mass fraction]o n 07-14-2021 A1C HEMOGLOBIN [facility] Rudder Other CBC and Differentialon 01-07 Abs Baso 0.04 k/uL Normal <0.11 [facility] Abs [place] 0.62 k/uL Normal <0.87 [facility] Abs Neut 5.03 k/uL Normal 1.45-7.50 [facility] Absolute nRBC <0.01 Normal <0.01 [facility] Basophils/100 WBC (Bld) 0.5 % Normal [facility] DTYPE Auto Diff Normal [facility] Eosinophils (Bld) [#/Vol] 0.54 10*3/uL High <0.46 [facility] Eosinophils/100 WBC (Bld) 6.7 % Normal [facility] Erythrocyte distribution width (RBC) [Ratio] 14.4 % Normal 11.5-15.0 [facility] Hematocrit (Bld) [Volume fraction] 39.2 % Normal 39.0-51.0 [facility] Hemoglobin (Bld) [Mass/Vol] 13.0 g/dL Normal 13.0-17.0 [facility] Lymphocytes (Bld) [#/Vol] 1.78 10*3/uL Normal 1.00-4.00 [facility] Lymphocytes/100 WBC (Bld) 22.2 % Normal [facility] MCH 27.4 pG Normal 26.0-34.0 [facility] MCHC (RBC) [Mass/Vol] 33.2 g/dL Normal 30.5-36.0 [facility] MCV (RBC) [Entitic vol] 82.7 fL Normal 80.0-100.0 [facility] Monocytes/100 WBC (Bld) 7.7 % Normal [facility] Neutrophils/100 WBC (Bld) 62.9 % Normal [facility] NRBCs 0.0 /[address] [facility] Platelet mean volume (Bld) [Entitic vol] 10.3 fL Normal 9.0-12.7 [facility] Platelets (Bld) [#/Vol] 248 10*3/uL Normal 150-400 [facility] RBC (Bld) [#/Vol] 4.74 10*6/uL Normal 4.20-6.00 [facility] WBC (Bld) [#/Vol] 8.03 10*3/uL Normal 3.70-11.00 [facility] CEAon 01-07-2021 CEA 1.9 ng/mL Normal 0.0-2.9 [facility] Comment on above: Result Comment: Test analyzed by the [employer] DxI method. Performed By: #### C EA #### [facility] [address] [place] [id number] CNOVSPon 01-07-2021 CNOVSP Visit (SP) Office ([place]) GAGANDEEP AHN ([id number]) 1950 M Date Time Provider Department 01/07/21 3:00 PM STEPHANI RUELAS During your visit today, we recorded the following information about you: Temperature Pulse Respiration Blood pressure 97.8 degrees 66/minute 18/minute 126/76 Weight Height 86.6 kg 1.765 m Stephani Ruelas APRN.CORBIN 01/07/2021 3:45 PM Signed PATIENT NAME: Gagandeep Ahn DATE: 01/07/2021 (Elements copied from Moise Ramos MD note dated 07/22/2020 , have been reviewed and updated where appropriate, and all reflect current assessment and medical decision making during today's encounter, January 07, 2021) PRIMARY CARE PHYSICIAN: Kota Hyman CNP (NOMS) OTHER PHYSICIANS: Dr. Brandy Bnaks, Dr. Salinas CC: This is a 70 [...] As Directed March 31, 2019 10:06am 03-31-2019 [facility] ([id number]) busPIRone (BUSPAR) 10 mg tablet Take 10 mg by mouth three times daily. QUEtiapine (SEROQUEL) 50 mg tablet Take 50 mg by mouth twice daily. insulin detemir U-100 (LEVEMIR) 100 unit/mL (3 mL) injection pen insulin detemir Insulin Detemir U-100 Active 17 UNIT Subcutaneous Daily March 31, 2019 10:08am 03-31-2019 [facility] ([id number]) tiotropium (SPIRIVA) 18 mcg inhalation capsule tiotropium Tiotropium [place] Active 2 PUFF Inhalation Daily March 31, 2019 10:06am 03-31-2019 [facility] ([id number]) losartan (COZAAR) 50 mg tablet Take 50 [...] ABD/PEL-Inject, intr (more content not included)... Normal [facility] Comp Metabolic Panelon 01-07 Albumin [Mass/Vol] 4.1 g/dL Normal 3.9-4.9 [facility] ALP [Catalytic activity/Vol] 61 U/L Normal 38-113 [facility] ALT [Catalytic activity/Vol] 25 U/L Normal 10-54 [facility] Anion gap [Moles/Vol] 12 mmol/L Normal 9-18 [facility] AST [Catalytic activity/Vol] 21 U/L Normal 14-40 [facility] Bilirubin [Mass/Vol] 0.6 mg/dL Normal 0.2-1.3 [facility] Calcium [Mass/Vol] 9.6 mg/dL Normal 8.5-10.2 [facility] Chloride [Moles/Vol] 100 mmol/L Normal 97-105 [facility] CO2 [Moles/Vol] 25 mmol/L Normal 22-30 [facility] Creatinine [Mass/Vol] 0.81 mg/dL Normal 0.73-1.22 [facility] eGFR- Amer. >60 Normal [facility] eGFR-All Other Races >60 Normal [facility] Comment on above: Result Comment: eGFR (Estimated [...] GFR. Glucose [Mass/Vol] 309 mg/dL High 74-99 [facility] Comment on above: Result Comment: The [place] Diabetes Association (ADA) provides guidance for cutoff [...] Standards of Medical Care in Diabetes 2016, [place] [employer]. Diabetes Care. 2016.39(Suppl 1). Potassium [Moles/Vol] 3.8 mmol/L Normal 3.7-5.1 [facility] Protein [Mass/Vol] 7.0 g/dL Normal 6.3-8.0 [facility] Sodium [Moles/Vol] 137 mmol/L Normal 136-144 [facility] Urea nitrogen [Mass/Vol] 16 mg/dL Normal 9-24 [facility] CNPNon 12-31-2020 CNPN Telephone ([place]) GAGANDEEP AHN ([id number]) 1950 M Date Time Provider Department 12/31/20 MOISE RAMOS During your visit today, we recorded the following information about you: Ellie Dow 12/31/2020 10:32 AM Signed Please sign pending lab orders for Wednesday01/07/21. 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 - QUEtiapine (SEROQUEL) 50 mg tablet Take 50 mg by mouth twice daily. - insulin detemir U-100 (LEVEMIR) 100 unit/mL (3 mL) injection pen insulin detemir Insulin Detemir U-100 Active 17 UNIT Subcutaneous Daily March 31, 2019 10:08am 03-31-2019 [facility] ([id number]) - tiotropium (SPIRIVA) 18 mcg inhalation capsule tiotropium Tiotropium [place] Active 2 PUFF Inhalation Daily March 31, 2019 10:06am 03-31-2019 [facility] ([id number]) - losartan (COZAAR) 50 mg tablet Take [...] Rectal, E (more content not included)... Normal [facility] Vital Signs Date Time Vital Sign Value Performing Clinician Facility 12-09-2023 10:03-0400 Body height 175.26 cm LOCOMOTIVE PIPE FITTERMj Hyman Work Phone: [facility] 12-09-2023 10:03-0400 Body mass index (BMI) [Ratio] 24.2 kg/m2 LOCOMOTIVE PIPE FITTERMj Aldrichlim Work Phone: [facility] 12-09-2023 10:03-0400 Body temperature 96.8 [degF] LOCOMOTIVE PIPE FITTERMj Hyman Work Phone: [facility] 12-09-2023 10:03-0400 Body weight 74.38 kg LOCOMOTIVE PIPE FITTERMj Aldrichlim Work Phone: [facility] 12-09-2023 10:03-0400 Diastolic blood pressure 60 mm[Hg] LOCOMOTIVE PIPE FITTERMj Hyman Work Phone: [facility] 12-09-2023 10:03-0400 Heart rate 76 /min LOCOMOTIVE PIPE FITTERMj Hyman Work Phone: [facility] 12-09-2023 10:03-0400 SaO2% (BldA) [Mass fraction] 99 % LOCOMOTIVE PIPE FITTERMj Hyman Work Phone: [facility] 12-09-2023 10:03-0400 Systolic blood pressure 118 mm[Hg] LOCOMOTIVE PIPE FITTERMj Hyman Work Phone: [facility] 10-07-2023 09:53-0400 Body height 175.26 cm LOCOMOTIVE PIPE FITTERMj Hyman Work Phone: [facility] 10-07-2023 09:53-0400 Body mass index (BMI) [Ratio] 22.7 kg/m2 LOCOMOTIVE PIPE FITTERMj Hyman Work Phone: [facility] 10-07-2023 09:53-0400 Body temperature 97.9 [degF] LOCOMOTIVE PIPE FITTERMj Aldrichlim Work Phone: [facility] 10-07-2023 09:53-0400 Body weight 69.85 kg LOCOMOTIVE PIPE FITTERMj Aldrichlim Work Phone: [facility] 10-07-2023 09:53-0400 Diastolic blood pressure 62 mm[Hg] 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 10-07-2023 09:53-0400 Heart rate 77 /min LOCOMOTIVE PIPE FITTERMj Casanovaa Anglim Work Phone: [facility] 10-07-2023 09:53-0400 Respiratory rate 16 /min LOCOMOTIVE PIPE FITTERMj Aguirre Anglim Work Phone: [facility] 10-07-2023 09:53-0400 SaO2% (BldA) [Mass fraction] 98 % 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 10-07-2023 09:53-0400 Systolic blood pressure 102 mm[Hg] LOCOMOTIVE PIPE FITTERMj Casanovaa Anglim Work Phone: [facility] 09-30-2023 11:15-0400 Body height 175.26 cm LOCOMOTIVE PIPE FITTERMj Aguirre Anglim Work Phone: [facility] 09-30-2023 11:15-0400 Body mass index (BMI) [Ratio] 22.7 kg/m2 LOCOMOTIVE PIPE FITTERMj Aguirre Anglim Work Phone: [facility] 09-30-2023 11:15-0400 Body weight 69.85 kg LOCOMOTIVE PIPE FITTERMj Aguirre Anglim Work Phone: [facility] 09-30-2023 10:25-0400 Body temperature 97.3 [degF] LOCOMOTIVE PIPE FITTERMj Aguirre Anglim Work Phone: [facility] 09-30-2023 10:25-0400 Diastolic blood pressure 81 mm[Hg] 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 09-30-2023 10:25-0400 Heart rate 74 /min 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 09-30-2023 10:25-0400 Respiratory rate 18 /min 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 09-30-2023 10:25-0400 Systolic blood pressure 152 mm[Hg] LOCOMOTIVE PIPE FITTERMj Aguirre Anglim Work Phone: [facility] 09-28-2023 15:15-0400 Body height 170.2 cm Jo Veronica MD Work Phone: [facility] 09-28-2023 15:15-0400 Body mass index (BMI) [Ratio] 25.84 kg/m2 Jo Veronica MD Work Phone: [facility] 09-28-2023 15:15-0400 Body weight 74.84 kg Jo Veronica MD Work Phone: [facility] 09-28-2023 15:15-0400 Diastolic blood pressure 72 mm[Hg] Jo Veronica MD Work Phone: [facility] 09-28-2023 15:15-0400 Heart rate 77 /min Jo Veronica MD Work Phone: [facility] 09-28-2023 15:15-0400 Systolic blood pressure 128 mm[Hg] Jo Veronica MD Work Phone: [facility] 09-13-2023 15:00-0400 Diastolic blood pressure 75 mm[Hg] IAIN Aguirre Anglim Work Phone: [facility] 09-13-2023 15:00-0400 Heart rate 71 /min LOCOMOTIVE PIPE FITTERMj Hyman Work Phone: [facility] 09-13-2023 15:00-0400 Respiratory rate 16 /min LOCOMOTIVE PIPE FITTERMj Casanovaa Anglim Work Phone: [facility] 09-13-2023 15:00-0400 SaO2% (BldA) [Mass fraction] 96 % LOCOMOTIVE PIPE FITTERMj Aguirre Anglim Work Phone: [facility] 09-13-2023 15:00-0400 Systolic blood pressure 140 mm[Hg] LOCOMOTIVE PIPE FITTERMj Aguirre Angbre Work Phone: [facility] 09-13-2023 11:40-0400 Inhaled oxygen flow rate 2 L/min LOCOMOTIVE PIPE FITTERMj Hyman Work Phone: [facility] 09-13-2023 10:39-0400 Body height 175.26 cm LOCOMOTIVE PIPE FITTER Kota Aldrichlim Work Phone: [facility] 09-13-2023 10:39-0400 Body weight 69.85 kg LOCOMOTIVE PIPE FITTER Kota Aldrichlim Work Phone: [facility] 09-09-2023 11:35-0400 Body height 175.26 cm LOCOMOTIVE PIPE FITTER Kota Aldrichlim Work Phone: [facility] 09-09-2023 11:35-0400 Body mass index (BMI) [Ratio] 22.7 kg/m2 LOCOMOTIVE PIPE FITTERMj Hyman Work Phone: [facility] 09-09-2023 11:35-0400 Body temperature 97.4 [degF] LOCOMOTIVE PIPE FITTERMj Hyman Work Phone: [facility] 09-09-2023 11:35-0400 Body weight 69.85 kg LOCOMOTIVE PIPE FITTERMj Aldrichlim Work Phone: [facility] 09-09-2023 11:35-0400 Diastolic blood pressure 50 mm[Hg] LOCOMOTIVE PIPE FITTERMj Hyman Work Phone: [facility] 09-09-2023 11:35-0400 Heart rate 73 /min LOCOMOTIVE PIPE FITTERMj Hyman Work Phone: [facility] 09-09-2023 11:35-0400 SaO2% (BldA) [Mass fraction] 98 % LOCOMOTIVE PIPE FITTERMj Aldrichlim Work Phone: [facility] 09-09-2023 11:35-0400 Systolic blood pressure 100 mm[Hg] LOCOMOTIVE PIPE FITTERMj Casanovaa Anglim Work Phone: [facility] 09-09-2023 08:46-0400 Body height 175.26 cm 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 09-09-2023 08:46-0400 Body mass index (BMI) [Ratio] 22.7 kg/m2 LOCOMOTIVE PIPE FITTERMj Casanovaa Anglim Work Phone: [facility] 09-09-2023 08:46-0400 Body weight 69.85 kg LOCOMOTIVE PIPE FITTERMj Casanovaa Anglim Work Phone: [facility] 09-09-2023 08:31-0400 Body temperature 97.5 [degF] 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 09-09-2023 08:31-0400 Diastolic blood pressure 69 mm[Hg] 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 09-09-2023 08:31-0400 Heart rate 64 /min 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 09-09-2023 08:31-0400 Respiratory rate 18 /min 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 09-09-2023 08:31-0400 Systolic blood pressure 115 mm[Hg] 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 08-28-2023 16:09-0500 Diastolic blood pressure 85 mm[Hg] 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 08-28-2023 16:09-0500 Heart rate 70 /min 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 08-28-2023 16:09-0500 Respiratory rate 20 /min 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 08-28-2023 16:09-0500 SaO2% (BldA) [Mass fraction] 100 % 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 08-28-2023 16:09-0500 Systolic blood pressure 185 mm[Hg] 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 08-28-2023 14:29-0500 Body height 175.26 cm LOCOMOTIVE PIPE FITTERMj Hyman Work Phone: [facility] 08-28-2023 14:29-0500 Body temperature 97.6 [degF] LOCOMOTIVE PIPE FITTERMj Hyman Work Phone: [facility] 08-28-2023 14:29-0500 Body weight 69.85 kg LOCOMOTIVE PIPE FITTER Kota Hyman Work Phone: [facility] 05-24-2023 14:00-0500 Body height 170.18 cm Tondra Mapus Other [facility] 05-24-2023 14:00-0500 Body mass index (BMI) [Ratio] 27.56 kg/m2 Tondra Mapus Other [facility] Other 05-24-2023 14:00-0500 Body weight 79.83 kg Tondra Mapus Other [facility] 05-24-2023 14:00-0500 Diastolic blood pressure 84 mm[Hg] Tondra Mapus Other [facility] 05-24-2023 14:00-0500 Respiratory rate 18 /min Tondra Mapus Other [facility] Other 05-24-2023 14:00-0500 SaO2% (BldA) [Mass fraction] 100 % Tondra Mapus Other [facility] Other 05-24-2023 14:00-0500 Systolic blood pressure 148 mm[Hg] Tondra Mapus Other [facility] 02-08-2023 14:30-0400 Body height 170.18 cm Tondra Mapus Other [facility] Other 02-08-2023 14:30-0400 Body mass index (BMI) [Ratio] 27.33 kg/m2 Tondra Mapus Other [facility] Other 02-08-2023 14:30-0400 Body weight 79.15 kg Tondra Mapus Other [facility] Other 02-08-2023 14:30-0400 Diastolic blood pressure 92 mm[Hg] Tondra Mapus Other [facility] Other 02-08-2023 14:30-0400 Respiratory rate 18 /min Tondra Mapus Other [facility] Other 02-08-2023 14:30-0400 SaO2% (BldA) [Mass fraction] 98 % Tondra Mapus Other [facility] Other 02-08-2023 14:30-0400 Systolic blood pressure 172 mm[Hg] Tondra Mapus Other [facility] Other 10-21-2022 15:15-0400 Body height 170.18 cm Tondra Mapus Other [facility] Other 10-21-2022 15:15-0400 Body mass index (BMI) [Ratio] 26.89 kg/m2 Tondra Mapus Other [facility] Other 10-21-2022 15:15-0400 Body weight 77.88 kg Tondra Mapus Other [facility] Other 10-21-2022 15:15-0400 Diastolic blood pressure 92 mm[Hg] Tondra Mapus Other [facility] Other 10-21-2022 15:15-0400 Respiratory rate 18 /min Tondra Mapus Other [facility] Other 10-21-2022 15:15-0400 SaO2% (BldA) [Mass fraction] 97 % Tondra Mapus Other [facility] Other 10-21-2022 15:15-0400 Systolic blood pressure 161 mm[Hg] Tondra Mapus Other [facility] Other 07-21-2022 13:42-0500 Body height 176.5 cm Moise Ramos MD Work Phone: 07-21-2022 13:42-0500 Body temperature 97.59 [degF] Moise Ramos MD Work Phone: 07-21-2022 13:42-0500 Body weight 76.11 kg Moise aRmos MD Work Phone: 07-21-2022 13:42-0500 Diastolic blood pressure 64 mm[Hg] Moise Ramos MD Work Phone: 07-21-2022 13:42-0500 Heart rate 58 /min Moise Ramos MD Work Phone: 07-21-2022 13:42-0500 Respiratory rate 18 /min Moise Ramos MD Work Phone: 07-21-2022 13:42-0500 SaO2% (BldA) [Mass fraction] 97 % Moise Ramos MD Work Phone: 07-21-2022 13:42-0500 Systolic blood pressure 107 mm[Hg] Moise Ramos MD Work Phone: 07-20-2022 14:00-0500 Body height 170.18 cm Tondra Mapus Other [facility] Other 07-20-2022 14:00-0500 Body mass index (BMI) [Ratio] 26.39 kg/m2 Tondra Mapus Other [facility] Other 07-20-2022 14:00-0500 Body weight 76.43 kg Tondra Mapus Other [facility] Other 07-20-2022 14:00-0500 Diastolic blood pressure 77 mm[Hg] Tondra Mapus Other [facility] Other 07-20-2022 14:00-0500 Respiratory rate 18 /min Tondra Mapus Other [facility] Other 07-20-2022 14:00-0500 SaO2% (BldA) [Mass fraction] 97 % Tondra Mapus Other [facility] Other 07-20-2022 14:00-0500 Systolic blood pressure 147 mm[Hg] Tondra Mapus Other [facility] Other 05-11-2022 14:13-0500 Diastolic blood pressure 82 mm[Hg] 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 05-11-2022 14:13-0500 Heart rate 57 /min 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 05-11-2022 14:13-0500 Respiratory rate 16 /min 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 05-11-2022 14:13-0500 SaO2% (BldA) [Mass fraction] 96 % 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 05-11-2022 14:13-0500 Systolic blood pressure 147 mm[Hg] IAIN Hyman Work Phone: [facility] 05-11-2022 13:28-0500 Inhaled oxygen flow rate 8 L/min IAIN Hyman Work Phone: [facility] 05-11-2022 13:04-0500 Body height 175.26 cm IAIN Hyman Work Phone: [facility] 05-11-2022 13:04-0500 Body mass index (BMI) [Ratio] 24.8 kg/m2 IAIN Hyman Work Phone: [facility] 05-11-2022 13:04-0500 Body weight 76.3 kg IAIN Hyman Work Phone: [facility] 05-11-2022 11:08-0500 Body temperature 97.5 [degF] IAIN Hyman Work Phone: [facility] 03-26-2022 15:15-0400 Body height 170.18 cm Tondra Mapus Other [facility] Other 03-26-2022 15:15-0400 Body mass index (BMI) [Ratio] 27.25 kg/m2 Tondra [facility] Other [facility] Other 03-26-2022 15:15-0400 Body weight 78.93 kg Tondra Mapus Other [facility] Other 03-26-2022 15:15-0400 Diastolic blood pressure 67 mm[Hg] Tondra Mapus Other [facility] Other 03-26-2022 15:15-0400 Respiratory rate 18 /min Tondra Mapus Other [facility] Other 03-26-2022 15:15-0400 SaO2% (BldA) [Mass fraction] 99 % Tondra Mapus Other [facility] Other 03-26-2022 15:15-0400 Systolic blood pressure 111 mm[Hg] Tondra Mapus Other [facility] Other 08-26-2021 10:15-0500 Body height 170.18 cm Tondra Mapus Other [facility] Other 08-26-2021 10:15-0500 Body mass index (BMI) [Ratio] 28.5 kg/m2 Tondra Mapus Other [facility] Other 08-26-2021 10:15-0500 Body weight 82.56 kg Tondra Mapus Other [facility] Other 08-26-2021 10:15-0500 Diastolic blood pressure 78 mm[Hg] Tondra Mapus Other [facility] Other 08-26-2021 10:15-0500 Respiratory rate 16 /min Tondra Mapus Other [facility] Other 08-26-2021 10:15-0500 SaO2% (BldA) [Mass fraction] 99 % Tondra Mapus Other [facility] Other 08-26-2021 10:15-0500 Systolic blood pressure 125 mm[Hg] Tondra Mapus Other [facility] Other 07-28-2021 12:00-0500 Body height 170.18 cm Tondra Mapus Other [facility] Other 07-28-2021 12:00-0500 Body mass index (BMI) [Ratio] 30.44 kg/m2 Tondra Mapus Other [facility] Other 07-28-2021 12:00-0500 Body weight 88.18 kg Tondra Mapus Other [facility] Other 07-28-2021 12:00-0500 Diastolic blood pressure 74 mm[Hg] Tondra Mapus Other [facility] Other 07-28-2021 12:00-0500 Respiratory rate 18 /min Tondra Mapus Other [facility] Other 07-28-2021 12:00-0500 SaO2% (BldA) [Mass fraction] 98 % Tondra Mapus Other [facility] Other 07-28-2021 12:00-0500 Systolic blood pressure 142 mm[Hg] Tondra Mapus Other [facility] Other 07-14-2021 12:00-0500 Body height 170.18 cm Tondra Mapus Other [facility] Other 07-14-2021 12:00-0500 Body mass index (BMI) [Ratio] 29.29 kg/m2 Tondra Mapus Other [facility] Other 07-14-2021 12:00-0500 Body weight 84.82 kg Tondra Mapus Other [facility] Other 07-14-2021 12:00-0500 Diastolic blood pressure 77 mm[Hg] Tondra Mapus Other [facility] Other 07-14-2021 12:00-0500 Respiratory rate 20 /min Tondra Mapus Other [facility] Other 07-14-2021 12:00-0500 SaO2% (BldA) [Mass fraction] 98 % Tondra Mapus Other [facility] Other 07-14-2021 12:00-0500 Systolic blood pressure 132 mm[Hg] Tondra Mapus Other [facility] Other Encounters Encounter Date Encounter Type Care Provider Facility Start: 12-09-2023 End: 12-09-2023 ambulatory IAIN Hyman Work Phone: [facility] Work Phone: Start: 12-09-2023 End: 12-09-2023 Patient encounter procedure IAIN Hyman Work Phone: [facility] Work Phone: Start: 11-30-2023 End: 11-30-2023 ambulatory JO G [facility] Start: 11-18-2023 End: 11-18-2023 ambulatory Hubert Smith [facility] Facility:[facility] Start: 11-18-2023 End: 11-18-2023 ambulatory IAIN Hyman Work Phone: [facility] Work Phone: Start: 11-18-2023 End: 11-18-2023 Departed Referred IAIN Hyman Work Phone: [facility] Start: 11-17-2023 End: 11-17-2023 ambulatory [facility] Start: 11-17-2023 End: 11-17-2023 Encounter for preprocedural cardiovascular examination LENI [facility] Start: 11-16-2023 End: 11-16-2023 ambulatory MARCOS HALL Not Available Start: 11-09-2023 End: 11-09-2023 ambulatory JO Kp VERONICA [facility] Start: 11-07-2023 End: 11-07-2023 Emergency department patient visit [facility] Start: 11-04-2023 End: 11-05-2023 Emergency department patient visit YUSRA KOENIG [facility] Start: 11-03-2023 End: 11-03-2023 ambulatory VENUS RAMOS [facility] Start: 10-29-2023 End: 10-30-2023 Emergency department patient visit PADMA BLAIR [facility] Start: 10-29-2023 End: 10-29-2023 Emergency department patient visit KOTA Mac [facility] Start: 10-08-2023 End: 10-09-2023 ambulatory KOTA A [facility] Start: 10-07-2023 End: 10-07-2023 ambulatory Steven Horta Facility:[facility] Start: 10-07-2023 End: 10-07-2023 ambulatory IAIN Hyman Work Phone: [facility] Work Phone: Start: 10-07-2023 End: 10-07-2023 Patient encounter procedure LOCOMOTIVE PIPE FITTERMj Hyman Work Phone: [facility] Work Phone: Start: 09-30-2023 End: 09-30-2023 ambulatory Kota Hyman Facility:[facility] Start: 09-30-2023 End: 09-30-2023 ambulatory IAIN Hyman Work Phone: [facility] Work Phone: Start: 09-30-2023 End: 09-30-2023 Discharged Recurring IAIN Hyman Work Phone: [facility] [place] Work Phone: Start: 09-30-2023 Registered Recurring LOCOMOTIVE PIPE FITTER Edilberto Hyman Work Phone: [facility] [place] Work Phone: Start: 09-28-2023 End: 09-29-2023 ambulatory JO Goodrich CAROLINA [facility] Start: 09-28-2023 End: 09-28-2023 ambulatory [facility] Start: 09-28-2023 End: 09-28-2023 Office consultation new/estab patient 40 min Jo Veronica MD Work Phone: [facility] Comment on above: Urinary retention (P rimary Dx) Start: 09-13-2023 End: 09-13-2023 [facility] Start: 09-13-2023 End: 09-13-2023 ambulatory Steven Horta Facility:[facility] Start: 09-13-2023 Non-patient / Non-visit LOCOMOTIVE PIPE FITTER Jeanie Hyman Work Phone: [facility] Work Phone: Start: 09-13-2023 End: 09-13-2023 Admission to same day surgery center LOCOMOTIVE PIPE FITTER Kota Hyman Work Phone: [facility]Interventional Radiology Work Phone: Start: 09-13-2023 End: 09-13-2023 ambulatory LOCOMOTIVE PIPE FITTER Kota Hyman Work Phone: [facility] Work Phone: Start: 09-09-2023 End: 09-09-2023 ambulatory LOCOMOTIVE PIPE FITTER Kota Hyman Work Phone: [facility] Work Phone: Start: 09-09-2023 End: 09-09-2023 Patient encounter procedure IAIN Hyman Work Phone: [facility] Work Phone: Start: 09-09-2023 Registered Recurring LOCOMOTIVE PIPE FITTERMj Hyman Work Phone: [facility] [place] Work Phone: Start: 08-28-2023 End: 08-28-2023 Emergency department patient visit Jose Enrique Almendarez Facility:[facility] Start: 08-28-2023 End: 08-28-2023 Emergency department patient visit IAIN Hyman Work Phone: [facility]Emer[facility] Work Phone: Start: 08-26-2023 End: 08-26-2023 ambulatory Kota Hyman Facility:[facility] Start: 08-26-2023 End: 08-26-2023 Patient encounter procedure IAIN Hyman Work Phone: [facility]Ultrasound [place] Work Phone: Start: 07-27-2023 Telephone encounter Marcella Jones [facility] Comment on above: referral Start: 07-01-2023 End: 07-01-2023 ambulatory AMILCAR Marmolejo [facility] Other Start: 07-01-2023 Telephone encounter Delores Cummings [facility] Start: 06-26-2023 End: 06-30-2023 Emergency department patient visit KIRILL Deep [facility] Start: 06-26-2023 End: 06-30-2023 Evaluation and management of inpatient KOTA [facility] Start: 06-15-2023 End: 06-15-2023 ambulatory SUZE LEVIN Not Available Start: 05-27-2023 End: 05-27-2023 ambulatory SUZE LEVIN Not Available Start: 05-24-2023 End: 05-24-2023 Discharged Recurring IAIN Hyman Work Phone: [facility] Work Phone: Start: 05-24-2023 (DM) Diabetes Tondra Mapus [facility] Start: 05-24-2023 End: 05-25-2023 ambulatory IAIN Hyman Work Phone: [employer] [facility] Other Start: 05-24-2023 End: 05-24-2023 Patient encounter procedure IAIN Hyman Work Phone: [facility] Work Phone: Start: 05-18-2023 End: 05-18-2023 ambulatory BRANDY BANKS V Not Available Start: 03-31-2023 End: 03-31-2023 ambulatory Tondra Mapus Other [facility] Other Start: 03-31-2023 Telephone encounter Tondra Mapus [facility] Start: 02-08-2023 (DM) Diabetes Tondra Mapus [facility] Start: 02-08-2023 End: 02-08-2023 ambulatory Tondra Mapus Other [facility] Other Start: 12-23-2022 End: 12-23-2022 ambulatory Tondra Mapus Other [facility] Other Start: 12-23-2022 Telephone encounter Tondra Mapus [facility] Start: 10-21-2022 (DM) Diabetes Tondra Mapus [facility] Start: 10-21-2022 End: 10-21-2022 ambulatory Tondra Mapus Other [facility] Other Start: 08-30-2022 End: 08-30-2022 ambulatory Tondra Mapus Other [facility] Other Start: 08-30-2022 Telephone encounter Tondra Cummings [facility] Start: 07-21-2022 End: 07-21-2022 ambulatory Moise Ramos MD Work Phone: Hematology/Oncology Comment on above: 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) Start: 07-21-2022 End: 07-21-2022 Patient encounter procedure Moise Ramos MD Work Phone: [employer] Start: 07-20-2022 (DM) Diabetes Tondra Mapus [facility] Start: 07-20-2022 End: 07-20-2022 ambulatory Tondra Mapus Other [facility] Other Start: 05-12-2022 End: 05-12-2022 ambulatory Tondra Mapus Other [facility] Other Start: 05-12-2022 Telephone encounter Tondra Emiliano [facility] Start: 05-11-2022 End: 05-11-2022 Admission to same day surgery center LOCOMOTIVE PIPE FITTERMj Hyman Work Phone: [facility]-Surgery Center [place] Start: 05-11-2022 End: 05-11-2022 ambulatory LOCOMOTIVE PIPE FITTER Kota Hyman Work Phone: [facility] Work Phone: Start: 05-07-2022 End: 05-07-2022 ambulatory LOCOMOTIVE PIPE FITTER Kota Anglim Work Phone: [facility] Work Phone: Start: 05-07-2022 End: 05-07-2022 Patient encounter procedure LOCOMOTIVE PIPE FITTERMj Hyman Work Phone: [facility]-Ptc-Fdtfmogp Testing Start: 04-08-2022 End: 04-08-2022 ambulatory LOCOMOTIVE PIPE FITTER Kota Hyman Work Phone: [facility] Work Phone: Start: 04-08-2022 End: 04-08-2022 Patient encounter procedure IAIN Aldrichbre Work Phone: [facility]-Center for Breast Care Start: 03-26-2022 Registered Recurring IAIN Hyman Work Phone: [facility] Start: 03-26-2022 (DM) Diabetes Tondra Mapus [facility] Start: 03-26-2022 End: 03-26-2022 ambulatory Tondra Mapus Other [facility] Other Start: 03-09-2022 End: 03-09-2022 ambulatory Tondra Mapus Other [facility] Other Start: 03-09-2022 Telephone encounter Tondra Mapus [facility] Start: 01-29-2022 End: 01-29-2022 ambulatory Tondra Mapus Other [facility] Other Start: 01-29-2022 Telephone encounter Tondra Mapus [facility] Start: 12-09-2021 (Planning Analyst) Jennifer Wesley [facility] Start: 12-09-2021 End: 12-09-2021 ambulatory Marcella Christian Other [facility] Other Start: 11-19-2021 End: 11-19-2021 ambulatory Tondra Mapus Other [facility] Other Start: 11-19-2021 Telephone encounter Tondra Mapus [facility] Start: 09-10-2021 (Planning Analyst) Jennifer Wesley [facility] Start: 09-10-2021 End: 09-10-2021 ambulatory Marcella Christian Other [facility] Other Start: 08-29-2021 End: 08-29-2021 ambulatory Tondra Mapus Other [facility] Other Start: 08-29-2021 Telephone encounter Tondra Mapus [facility] Start: 08-26-2021 (DM) Diabetes Tondra Mapus [facility] Start: 08-26-2021 End: 08-26-2021 ambulatory Tondra Mapus Other [facility] Other Start: 08-26-2021 Telephone encounter Tondra Mapus [facility] Start: 08-06-2021 (RD) Building Supervisor Marcella Christian [facility] Start: 08-06-2021 End: 08-06-2021 ambulatory Marcella Christian Other [facility] Other Start: 08-06-2021 Telephone encounter Janine ruth [facility] Start: 07-28-2021 End: 07-28-2021 ambulatory Tondra Mapus Other [facility] Other Start: 07-28-2021 Nursing evaluation o f patient and report Tondra Jocelineus [facility] Start: 07-14-2021 End: 07-14-2021 ambulatory Tondra Mapus Other [facility] Other Start: 07-14-2021 FQHC visit new [facility] Procedures Date Procedure Procedure Detail Performing Clinician Start: 11-03-2023 Follow-up visit Follow-up VENUS RAMOS Start: 10-07-2023 Ankle brachial pressure index LOCOMOTIVE PIPE FITTERMj Hyman Work Phone: Start: 09-22-2023 Investigation of transfusion reaction IAIN Hyman Work Phone: Start: 09-13-2023 IR Angiogram w/TLA/Stent Left Leg (Bilateral) IAIN Hyman Work Phone: Start: 09-13-2023 IR Angiogram w/TLA/Stent Left Leg (Right) IAIN Hyman Work Phone: Start: 08-28-2023 Urine culture IAIN Hyman Work Phone: Start: 08-26-2023 Pulse volume recorder pneumoplethysmography IAIN Hyman Work Phone: Start: 08-19-2023 Plain X-ray of bilateral calcanei LOCOMOTIVE PIPE FITTERMj Hyamn Work Phone: Start: 05-11-2022 Colonoscopy LOCOMOTIVE PIPE FITTERMj Hyman Work Phone: Start: 04-08-2022 Dual energy X-ray absorptiometry IAIN Hyman Work Phone: Start: 01-28-2022 Adult depression screening assessment Marcella Jones H/O: surgery Status post hardware removal IAIN Hyman Work Phone: SARS Antigen (LFIA) IAIN Moffett ra [employer] Work Phone: Plan of Treatment Date Care Activity Detail Author Start: 07-21-2025 DIABETES SCREEN [facility]CREEN [facility] Start: 09-27-2024 Adult [facility]ening [facility] Start: 09-27-2024 Tobacco Screening Tobacco Screening [facility] [employer] [facility] Start: 06-29-2024 Adult BMI Screening [facility] Start: 06-28-2024 Tobacco Screening Tobacco Screening [facility] [employer] [facility] Start: 02-27-2024 Influenza vaccination Influenza Vacc ine [facility] Start: 11-03-2023 End: 11-03-2023 Patient encounter procedure 11/03/2023 9:45 AM EDT Office Visit [facility] [address] [place] [address] [place] [address] Venus Ramos I, PA [facility] [place] [address] [facility] Start: 10-08-2023 End: 10-08-2023 ambulatory 10/08/2023 12:30 PM EDT Support Visit [facility] [address] [place] [address] A [facility] [place] [address] Jesus Garcia Jr., MD [address] [place] [address] [facility] Start: 10-07-2023 Ankle brachial press ure index [facility] Start: 09-13-2023 [facility] Start: 02-26-2023 COVID-19 Vaccine ( season) COVID-19 Vaccine ( season) [facility] Start: 02-26-2023 Influenza vaccination Influenza Vacc ine [facility] Start: 01-28-2023 Depression Screening Depression Scre ening [facility] Start: 06-28-2022 ADVANCE DIRECTIVE DISCUSSION ADVANCE DIRECTIVE DISCUSSION Start: 06-28-2022 DEPRESSION ASSESSMENT DEPRESSION ASS ESSMENT Start: 05-11-2022 End: 05-11-2022 [facility] Start: 02-26-2022 Influenza vaccination INFLUENZA (#1) Start: 06-24-2021 COVID-19 VACCINE (5 - Booster for Pfizer series) COVID-19 VACCINE (5 - Booster for Pfizer series) Start: 02-19-2021 PNEUMOCOCCAL: 65+ (2 - PCV) PNEUMOCOCCAL: 65+ (2 - PCV) Start: 2013 Fall Risk Screening Fall Risk Screen ing [facility] Start: 1998 SHINGRIX VACCINE (1 of 2) SHINGRIX VACCINE (1 of 2) Start: 1993 COLOGUARD (FIT-DNA) COLOGUARD (FIT-D NA) Start: 1993 Colonoscopy COLONOSCOPY Start: 1993 COLORECTAL CANCER SCREENING COLORECTAL CANCER SCREENING Start: [address] COLONOGRAPHY [facility] Start: 1993 FECAL OCCULT BLOOD FECAL OCCULT BLOO D Start: 1993 SIGMOIDOSCOPY SIGMOIDOSCOPY Vick smith [facility] Start: 10-28-1983 LIPID SCREEN LIPID SCREEN Start: 10-28-1967 Administration of varicella zoster vaccine Zoster (Shingles) Vaccine (1 of 2) [facility] Start: 10-28-1967 DTaP,Tdap and Td Vaccines (1 - Tdap) DTaP,Tdap and Td Vaccines (1 - Tdap) [facility] Start: 10-28-1967 Urine microalbumin profile DTAP,TDAP,TD (1 - Tdap) Start: 1966 Adult BMI Follow Up Plan Adult BMI Follow Up Plan [facility] Start: 1966 HEPATITIS C SCREENING HEPATITIS C SC REENING Start: 1948 Medicare Annual Well ness Visit Medicare Annual Wellness Visit [facility] Ankle brachial press ure index [facility] End: 09-27-2024 Bacteria identified in Urine by Culture Urine Culture Microbiology Routine Urinary retention 1 Occurrences starting 09/28/2023 until 09/27/2024 [facility] Work Phone: Comment on above: 1 Occurrences starti ng 09/28/2023 until 09/27/2024 Bacteria identified in Urine by Culture Urine Culture Microbiology Routine Urinary retention 09/28/2023 10:13 PM EDT [facility] Patient Education [facility] Work Phone: Patient referral [facility] Work Phone: [facility] Immunizations Immunization Date Immunization Notes Care Provider Fa cili 04-28-2021 influenza nasal, unspecified formulation Moise Ramos MD Work Phone: 04-28-2021 influenza virus vacc ine, unspecified formulation Marcella Jones [facility] 04-21-2021 influenza (aIIV4) vaccine, age 65+ yr, quadrivalent, PF (FLUAD QUADRIVALENT) Moise Ramos MD Work Phone: 04-15-2021 COVID-19 mRNA, Comir edmundo (Pfizer) IAIN Aguirre Valdemarbre Work Phone: [facility] 09-19-2020 COVID-19 mRNA, Comir edmundo (Pfizer) LOCOMOTIVE PIPE FITTERMj Aguirre Shantel Work Phone: [facility] 04-02-2020 influenza, injectabl e, quadrivalent, contains preservative Moise Ramos MD Work Phone: 02-20-2020 pneumococcal polysaccharide vaccine, 23 valent Moise Ramos MD Work Phone: 04-11-2019 influenza, injectabl e, quadrivalent, preservative free Moise Ramos MD Work Phone: 04-25-2018 influenza, injectabl e, quadrivalent, preservative free Moise Ramos MD Work Phone: 03-17-2018 influenza, high dose seasonal, preservative-free Moise Ramos MD Work Phone: 04-28-2017 influenza, injectabl e, quadrivalent, preservative free Moise Ramos MD Work Phone: 04-28-2017 pneumococcal polysaccharide vaccine, 23 valent Moise Ramos MD Work Phone: 04-08-2015 influenza, seasonal, injectable, preservative free Moise Ramos MD Work Phone: 05-05-2013 influenza, seasonal, injectable Moise Ramos MD Work Phone: Payers Date Payer Category [place] EDICA[place] [id number] 2023-Present [phone] [address] [place] [address] [id number] 2023 Medicaid [id number] 2021 Self-pay [id number] 2014 Private Health Insurance [id number] 2014 Unknown [id number] [id number] 2013 Medicare [id number] 2013 Medicare [id number] 2.16.840.1.748166.19 1948 Unknown [id number] 2.16.840.1.268359.3.579.2.1 286 1948 Unknown [id number] 2.16.840.1.459981.3.579.2.1 286 1948 Unknown [id number] 2.16.840.1.211878.3.579.2.1 286 1948 Unknown [id number] 2.16.840.1.096461.3.579.2.1 286 1948 Unknown [id number] 2.16.840.1.432059.3.579.2.1 286 1948 Unknown [id number] 2.16.840.1.146755.3.579.2.1 286 1948 Unknown [id number] 2.16.840.1.393674.3.579.2.1 286 1948 Unknown [id number] 2.16.840.1.324151.3.579.2.1 286 1948 Unknown [id number] 2.16.840.1.255955.3.579.2.1 286 1948 Unknown [id number] 2.16.840.1.159080.3.579.2.1 286 1948 Unknown [id number] 2.16.840.1.526289.3.579.2.1 286 1948 Unknown [id number] 2.16.840.1.865299.3.579.2.1 286 1948 Unknown [id number] 2.16.840.1.174748.3.579.2.1 286 1948 Unknown [id number] 2.16.840.1.565519.3.579.2.1 259 1948 Unknown [id number] 2.16.840.1.626294.3.579.2.1 259 1948 Unknown [id number] 2.16.840.1.166059.3.579.2.1 259 1948 Unknown [id number] 2.16.840.1.022945.3.579.2.1 259 1948 Unknown [id number] 2.16.840.1.352890.3.579.2.1 286 1948 Unknown [id number] 2.16.840.1.580517.3.579.2.1 286 1948 Unknown [id number] 2.16.840.1.873004.3.579.2.1 286 1948 Unknown [id number] 2.16.840.1.692641.3.579.2.1 286 Unknown [id number] 2.16.840.1.728777.3.579.2.5 31 Unknown [id number] 2.16.840.1.108395.3.579.2.5 31 Unknown [id number] 2.16.840.1.938806.3.579.2.5 31 Unknown [id number] 2.16.840.1.437493.3.579.2.5 31 Unknown [id number] 2.16.840.1.412967.3.579.2.5 31 Unknown [id number] 2.16.840.1.150613.3.579.2.5 31 Unknown [id number] 2.16.840.1.519761.3.579.2.5 31 Social History Date Type Detail Facility Start: 06-26-2023 End: 09-28-2023 Sex Assigned At [facility] Start: 11-07-2020 End: 09-30-2023 Tobacco smoking status NHIS Ex-smoker (finding) [facility] Start: 1950 Sex Assigned At Male F [facility] Start: 05-12-2016 Tobacco smoking stat us NHIS Never smoked tobacco Start: 05-12-2016 End: 09-28-2023 Tobacco use and exposure Smokeless tobacco non-user Start: 07-21-2022 Alcohol intake Current drinke r of alcohol (finding) Start: 1950 Sex Assigned At Not on file [facility] History of tobacco use Current smoker [facility] [employer] [facility] Start: 06-28-2023 End: 09-28-2023 Alcohol intake Current non-drinker of alcohol (finding) [facility] Start: 06-26-2023 End: 09-28-2023 History of Social function [facility] Has the Brand Thunder, Adenios, or water [employer] threatened to shut off services in your home in past 12Mo No [facility] [employer] [facility] Marital Status Not on file [facility] How often to you hav e a drink containing alcohol? Never [facility] [employer] [facility] Do you feel stress - tense, restless, nervous, or anxious, or unable to sleep at night because your mind is troubled all the time - these days [OSQ] Only a little [facility] Medical Equipment Procedure Code Equipment Code Equipment Origin al Text Equipment Identifier Dates ORIF, fracture, ankle Orthopaedic bone screw, non-bioabsorbable, non-sterile ()[id number] FDA Start: 08-08-2020 ORIF, fracture, ankle Orthopaedic bone screw, non-bioabsorbable, non-sterile ()[id number] FDA Start: 08-08-2020 ORIF, fracture, ankle Orthopaedic bone screw, non-bioabsorbable, non-sterile ()[id number] FDA Start: 08-08-2020 ORIF, fracture, ankle Orthopaedic bone screw, non-bioabsorbable, non-sterile ()[id number] FDA Start: 08-08-2020 ORIF, fracture, ankle Orthopaedic bone screw, non-bioabsorbable, non-sterile ()[id number] FDA Start: 08-08-2020 ORIF, fracture, ankle Orthopaedic fixation plate, non-bioabsorbable, sterile ()[id number] FDA Start: 08-08-2020 ORIF, fracture, ankle Orthopaedic bone screw, non-bioabsorbable, non-sterile ()[id number] FDA Start: 08-08-2020 ORIF, fracture, ankle Orthopaedic bone screw, non-bioabsorbable, non-sterile ()[id number] FDA Start: 08-08-2020 BD Pen Needle Na no U/F 32G X 4 MM Goals Date Patient Goal Desired Activity /State Personal health goal Comment on above: Formatting of this n ote might be different from the original. Evaluation of progress towards goal: In progress: Snf placement for rehab. Clinical Notes 01-07-2021 to 11-17-2023 Note Date & Type Note Facility 11-17-2023 Note RCRI=0 points Class I Risk 3.9 % 30-day risk of , OK, or cardiac arrest Pt denied CAD, CHF, Stroke, renal disease States good functional/aerobic capacity and only limiting factor is Rt foot ulcer/pain. METS> 8-10 From a cardiology perspective pt may proceed with planned Rt Foot surgery tomorrow, he is a low risk for a low-mod risk surgery- and he voiced understanding. May hold ASA if needed. [facility] 11-17-2023 Note Diabetes is stable, A1C stable 6.2 F/U with PCP [facility] 11-17-2023 Note Hypertension is stab le and states b/p at PCP office is well controlled- continue all current meds. Norvasc 2.5 mg, hydrochlorothiazide, losartan, toprol [facility] 11-17-2023 Note UTP CARDIOLOGY PROGR ESS NOTE HPI: Gagandeep Ahn is a 73 y.o. male here for New Patient (Cardiac clearance ) HPI 73 yo male presents today with family from SNF as new pt for cardiac clearance for Rt foot surgery tomorrow with Dr Strickland. 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 Currently denied chest pain, SOB, Orthopnea, leg swelling/weight gain, palpitations, lightheadedness, dizziness or syncope. States prior to June and Rt foot issues he was able to walk up 1-2 flights of stairs and/or around 1 block without CP or SOB; admits that Rt foot pain would be the only limiting factor with ambulation today. PMH: DM 2, HTN, HPL, anxiety, PTSDm COPD, colon CA, Rt foot fDFU FMH- Mother, DM, HTN and HPL- no early cardiac disease in family PSH: Pt denied any previous cardiac surgery, cardiac cath or procedures. Social: Quit smoking in 1968- smoked 1/2 PPD for about 2 years; Alcohol-sober x 3 years- 3-4 beers a couple times a week, denied illicit drug use [facility]ed chart [facility] Review of Systems Constitutional: Negative. Respiratory: Negative. Cardiovascular: Negative. Neurological: Negative. All other systems reviewed and are negative. Visit Vitals BP 140/66 (BP Location: Left arm, Patient Position: Sitting, BP Cuff Size: Adult) Pulse 63 Resp 11 Ht 1.753 m (5' 9 ) Wt 74 kg (163 lb 3.2 oz) SpO2 99% BMI 24.10 kg/m??? Smoking Status Former BSA 1.9 m??? Not on File Medications: Current Outpatient Medications on File Prior to Visit Medication Sig Dispense Refill amLODIPine (Norvasc) 2.5 mg tablet Take 2.5 mg by mouth. aspirin 81 mg EC tablet Take 81 mg by mouth. busPIRone (Buspar) 10 mg tablet Take 10 mg by mouth 3 times a day. hydroCHLOROthiazide (HYDRODiuril) 25 mg tablet Take 25 mg by mouth in the morning. HYDROcodone-acetaminophen ([place]) 7.5-325 mg tablet Take 1 tablet by mouth every 6 (six) hours if needed. lamoTRIgine (LaMICtal XR) 25 mg tablet extended release 24hr 24 hr tablet Take 100 mg by mouth in the morning. losartan (Cozaar) 50 mg tablet Take 100 mg by mouth. magnesium oxide (Mag-Ox) 400 mg (241.3 mg magnesium) tablet Take 400 mg by mouth twice a day. metFORMIN (Glucophage) 850 mg tablet Take 1,000 mg by mouth with breakfast and with evening meal. metoprolol succinate XL (Toprol-XL) 50 mg 24 hr tablet Take 50 mg by mouth. Ozempic 2 mg/dose (8 mg/3 mL) pen injector potassium chloride CR (Klor-Con M10) 10 mEq ER tablet Take 20 mEq by mouth in the morning. rosuvastatin (Crestor) 20 mg tablet Take 20 mg by mouth in the morning. semaglutide (Ozempic) 1 mg/dose (2 mg/1.5 mL) pen injector Inject 2 mg under the skin every 7 (seven) days. sertraline (Zoloft) 100 mg tablet Take 25 mg by mouth in the morning. tamsulosin (Flomax) 0.4 mg 24 hr capsule Take 0.4 mg by mouth. [DISCONTINUED] calcium carbonate-vitamin D3 ([place]) 250 mg-3.125 mcg (125 unit) tablet Take 2 tablets by mouth twice a day. [DISCONTINUED] cloNIDine (Catapres) 0.1 mg tablet [DISCONTINUED] gabapentin (Neurontin) 300 mg capsule Take 300 mg by mouth 3 times a day. [DISCONTINUED] hydroCHLOROthiazide 12.5 mg tablet Take 25 mg by mouth 1 (one) time each day at the same time. [DISCONTINUED] OLANZapine (ZyPREXA) 2.5 mg tablet Take 1 tablet by mouth at bedtime. [DISCONTINUED] sildenafil (Viagra) 100 mg tablet Take 1 tablet by mouth if needed. liraglutide (Victoza) 0.6 mg/0.1 mL (18 mg/3 mL) injection Inject 3 mL under the skin in the morning. [DISCONTINUED] atorvastatin (Lipitor) 40 mg tablet Take 40 mg by mouth in the morning. [DISCONTINUED] glyBURIDE (Diabeta) 5 mg tablet Take 5 mg by mouth. [DISCONTINUED] losartan-hydrochlorothiazide (Hyzaar) 50-12.5 mg tablet Take 1 tablet by mouth in the morning. [DISCONTINUED] QUEtiapine (SEROquel) 50 mg tablet Take 50 mg by mouth twice a day. No current facility-administered medications on file prior to visit. Physical Exam: Constitutional: Appearance: Normal appearance. Without apparent distress HENT: Head: Normocephalic and atraumatic. Nose: Nose normal. Mouth/Throat: Mouth: Mucous membranes are moist. Eyes: Extraocular Movements: Extraocular movements intact. Conjunctiva/sclera: Conjunctivae normal. Neck: Vascular: No JVD. Cardiovascular: Rate and Rhythm: Normal rate and regular rhythm. Pulses: Dorsalis pedis pulses are 3 on the right side and 3on the left side. Posterior tibial pulses are 3 on the right side and 3 on the left side. Heart sounds: Normal heart sounds, S1 normal and S2 normal. Pulmonary: Effort: Pulmonary effort is normal. Breath sounds: Normal breath sounds. Abdominal: General: Bowel sounds are normal. Palpations: Abdomen is soft. Musculoskeletal: General: Normal range of motion. Ambulates with walker Right lower leg: No edema. Left lower leg: No georgina (more content not included)... [facility] 09-30-2023 Progress note Note Date/Time September 30, 2023 11:15am [facility] [address] [place] [address] Wound Center Provider Note Signed Patient: Gagandeep Ahn MR#: [id number] : 1950 Acct:[id number] Age/Sex: 72 / M Copies to: Kota Hyman APRN, YING Vasquez DPM, MS~ HPI Date [...] 2023 right heel ulcer Mode of Arrival/ Php Programmer: Family Assistive Device Used Today: Wheelchair Appetite Description: Within Normal Limits Who helps w/ dressing change?: Home Health Why Do You Need Help?: Can't Reach Ulcer, Limited mobility, Unsafe leave home byself and Taxing effort to leave home Smoking Status: Former smoker [facility] Medical History Hypertension Depression Colon cancer Vitamin D deficiency Osteopenia Mood disorder 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 Insomnia Hypoglycemia associated [...] Bed Appearance: Beefy Red, Black Moist, Brown, Elberta, Yellow and Hypergranulation Percent of Wound Bed Granulated/Red: 80 Percent of Devitalized: 20 Length (cm): 3.9 Width (cm): 2.9 Depth (cm): 0.8 CM Sq: 11.310 Surrounding Tissue Appearance: Elberta Surrounding Tissue Temp: Warm Drainage Amount: Moderate [...] 12:00 Tunneling Depth: 2 Surrounding Tissue Appearance: Elberta Surrounding Tissue Temp: Warm Drainage Amount: None [...] Austyn Day M.D.08/19/2023 10:46 AM Dictation Location: [place] [address] Height: 5 ft 9 in Weight: 154 [...] to refer to Dr. Strickland at the [place] wound care clinic or at his [facility] office for evaluation and treatment. We [...] office at the wound care clinic in [place] and they said they would review his case and get back with him. I told the patient patient's family that I will send my note today to Dr. Strickland so he can review. We called to see if he was actually taking the doxycycline that was ordered for him based on the culture results. The half-way facility said that they received the order and have the pills however they did not have the order to take the medication. An order was sent today to begin taking the antibiotic as directed. (2) Atherosclerosis of yocha dehe artery of both lower extremities: Code(s): I70.203 - Unspecified atherosclerosis of yocha dehe arteries of extremities, bilateral legs Plan: Patient has follow-up with [facility] in 1 week. Time spent with patient Time Spent With Patient (min): 31 Dictated By: Beau Presley DPM DD/ [id number] Signed By: <Electronically signed by YING Presley> 09/30/23 [address] [facility] Work Phone: 1(694) 481-393904-02-2024 History of Present illness Narrative* Jo Veronica MD - 09/28/2023 3:00 PM EDT Images from the original note were not included. [address] [place] [address] [address] [facility] [id number] Patient: Gagandeep Ahn Date of : 1950 [...] any problems now Chest pain Colon cancer ([facility]) COPD (chronic obstructive pulmonary disease) ([facility]) Diabetes mellitus ([facility]) Glaucoma Hyperlipidemia Hypertension Past Surgical History: Procedure [...] you for your understanding. [facility] Progress note Author Martha Wilkes [facility] September 22, 2023 11:20am Note Date/Time September 22, 2023 11: 18am [facility] [address] [place] [address] Wound Center Provider Note Signed Patient: Gagandeep Ahn MR#: [id number] : 1950 Acct:[id number] Age/Sex: 72 / M Copies to: Kota Hyman APRN, BLACKENER Marthagaurav Wilkes APRN~ HPI Date of Visit Date of Visit: Date of Service: 09/22/2023 Time of Service: 11:11 Narrative HPI: 08/19/23 Gagandeep is a 72-year-old male presenting to [facility] for an initial visit for evaluation and treatment for bilateral heel ulcers. Please note that his daughter Soila is with him for the entire visit. Gagandeep does currently reside at an assisted living facility. We we will need to [facility] care for him due to the taxing [...] 2023 right heel ulcer Mode of Arrival/ Php Programmer: Family Assistive Device Used Today: Wheelchair Appetite Description: Within Normal Limits Who helps w/ dressing change?: Home Health Why Do You Need Help?: Can't Reach Ulcer, Limited mobility, Unsafe leave home byself and Taxing effort to leave home Smoking Status: Former smoker [facility] Medical History Hypertension Depression Colon cancer Vitamin [...] Bed Appearance: Black Dry, Black Moist, Brown, Elberta and Yellow Percent of Wound Bed Granulated/Red: 10 Percent of Devitalized: 90 Length (cm): 3.6 Width (cm): 2.6 Depth (cm): 0.2 CM Sq: 9.360 Surrounding Tissue Appearance: Elberta Surrounding Tissue Temp: Warm Drainage Amount: Moderate [...] 0.1 CM Sq: 1.300 Surrounding Tissue Appearance: Elberta Surrounding Tissue Temp: Warm Drainage Amount: None [...] Austyn Day M.D.08/19/2023 10:46 AM Dictation Location: [place] [address] Height: 5 ft 9 in Weight: 69.853 [...] <Electronically signed by IAIN Wilkes> 09/22/23 [address] [facility] Work Phone: 1(955) 454-503603-18-2024 [facility] Progress note Author Martha Wilkes [facility] September 09, 2023 8:46am Note Date/Time September 09, 2023 8:4 6am [facility] [address] [place] [address] Wound Center Provider Note Signed Patient: Gagandeep Ahn MR#: [id number] : 1950 Acct:[id number] Age/Sex: 72 / M Copies to: Kota Hyman APRN, CORBIN Wilkes APRN~ HPI Date of Visit Date of Visit: Date of Service: 09/09/2023 Time of Service: 08:42 Narrative HPI: 08/19/23 Gagandeep is a 72-year-old male presenting to [facility] wound care program for an initial visit for evaluation and treatment for bilateral heel ulcers. Please note that his daughter Soila is with him for the entire visit. Gagandeep does currently reside at an assisted living facility. We we will need [facility] him due to the taxing [...] 2023 right heel ulcer Mode of Arrival/ Php Programmer: Family Assistive Device Used Today: Wheelchair Appetite Description: Within Normal Limits Who helps w/ dressing change?: Home Health Why Do You Need Help?: Can't Reach Ulcer, Limited mobility, Unsafe leave home byself and Taxing effort to leave home Smoking Status: Former smoker [facility] Medical History (Updated 09/05/23 @ 00:00 by Background Daemon) Ulcer of right heel Ulcer of left [...] Bed Appearance: Black Dry, Black Moist, Brown, Elberta and Yellow Percent of Wound Bed Granulated/Red: 5 Percent of Devitalized: 95 Length (cm): 3 Width (cm): 2.8 Depth (cm): 0.2 CM Sq: 8.400 Surrounding Tissue Appearance: Elberta Surrounding Tissue Temp: Warm Drainage Amount: Moderate Drainage Description: Serosanguineous Drainage Odor: Foul Odor Left Heel: Type: Pressure/Injury Ulcer (w/diabetes/pvod) Pressure Ulcer/Injury Staging: Unstageable (at least stage 3) Bed Appearance: Black Dry Percent of Wound Bed Granulated/Red: 0 Percent of Devitalized: 100 Length (cm): 1.2 Width (cm): 1.0 Depth (cm): 0.1 CM Sq: 1.200 Surrounding Tissue Appearance: Elberta Surrounding Tissue Temp: Warm Drainage Amount: None [...] Austyn Day M.D.08/19/2023 10:46 AM Dictation Location: [place] [address] Height: 5 ft 9 in Weight: 69.853 [...] <Electronically signed by IAIN Wilkes> 09/09/23 [address] [facility] Work Phone: 1(157) 554-460503-07-2024 Progress note Author Martha Wilkes [facility] September 02, 2023 7:36am Note Date/Time September 02, 2023 7:36 am [facility] [address] [place] [address] Wound Center Provider Note Signed Patient: Gagandeep Ahn MR#: [id number] : 1950 Acct:[id number] Age/Sex: 72 / M Copies to: Kota Hyman APRN, CORBIN Wilkes APRN~ HPI Date of Visit Date of Visit: Date of Service: 09/02/2023 Time of Service: 07:31 Narrative HPI: 08/19/23 Gagandeep is a 72-year-old male presenting to [facility] wound care program for an initial visit for evaluation and treatment for bilateral heel ulcers. Please note that his daughter Soila is with him for the entire visit. Gagandeep does currently reside at an assisted living facility. We we will need [facility] him due to the taxing [...] 2023 right heel ulcer Mode of Arrival/ Php Programmer: Family Assistive Device Used Today: Wheelchair Appetite Description: Within Normal Limits Who helps w/ dressing change?: Home Health Why Do You Need Help?: Can't Reach Ulcer, Limited mobility, Unsafe leave home byself and Taxing effort to leave home Smoking Status: Former smoker [facility] Medical History (Updated 08/28/23 @ 16:09 by [...] 0.2 CM Sq: 9.000 Surrounding Tissue Appearance: Elberta Surrounding Tissue Temp: Warm Drainage Amount: Moderate Drainage Description: Serosanguineous Drainage Odor: Slight Odor Left Heel: Type: Pressure/Injury Ulcer (w/diabetes/pvod) Pressure Ulcer/Injury Staging: Unstageable (at least stage 3) Bed Appearance: Black Dry Percent of Wound Bed Granulated/Red: 0 Percent of Devitalized: 100 Length (cm): 1.5 Width (cm): 1.2 Depth (cm): 0.1 CM Sq: 1.800 Surrounding Tissue Appearance: Elberta Surrounding Tissue Temp: Warm Drainage Amount: None Drainage Odor: Slight Odor Results Additional Studies: ITS Impressions Calcaneus X-Ray 08/19/23 07:42 IMPRESSION: Mild soft tissue swelling. No subcutaneous air or radiodense foreign body. No acute bony involvement. Impression dictated by: Austyn Day M.D.08/19/2023 10:46 AM Dictation Location: [place] [address] Height: 5 ft 9 in Weight: 69.853 [...] <Electronically signed by IAIN Wilkes> 09/02/23 07[address] [facility] Work Phone: 1(621) 792-706602-29-2024 Progress note Author Martha Wilkes [facility] August 26, 2023 10:28am Note Date/Time August 26, 2023 10:28am [facility] [address] [place] [address] Wound Center Provider Note Signed Patient: Gagandeep Ahn MR#: [id number] : 1950 Acct:[id number] Age/Sex: 72 / M Copies to: Kota Hyman APRN, BLACKENER Martha Wilkes APRN~ HPI Date of Visit Date of Visit: Date of Service: 08/26/2023 Time of Service: 10:25 Narrative HPI: 08/19/23 Gagandeep is a 72-year-old male presenting to [facility] wound care program for an initial visit for evaluation and treatment for bilateral heel ulcers. Please note that his daughter Soila is with him for the entire visit. Gagandeep does currently reside at an assisted living facility. We we will need [facility] him due to the taxing [...] 2023 right heel ulcer Mode of Arrival/ Php Programmer: Family Assistive Device Used Today: Wheelchair Appetite Description: Within Normal Limits Who helps w/ dressing change?: Home Health Why Do You Need Help?: Can't Reach Ulcer, Limited mobility, Unsafe leave home byself and Taxing effort to leave home Smoking Status: Never smoker [facility] Medical History (Updated 08/19/23 @ 07:38 by [...] 0.2 CM Sq: 8.400 Surrounding Tissue Appearance: Elberta Surrounding Tissue Temp: Warm Drainage Amount: Moderate Drainage Description: Serosanguineous Drainage Odor: Slight Odor Left Heel: Type: Pressure/Injury Ulcer (w/diabetes) Pressure Ulcer/Injury Staging: Unstageable (at least stage 3) Bed Appearance: Black Dry, Black Moist and Yellow Percent of Wound Bed Granulated/Red: 0 Percent of Devitalized: 100 Length (cm): 1.4 Width (cm): 1.1 Depth (cm): 0.1 CM Sq: 1.540 Surrounding Tissue Appearance: Elberta Surrounding Tissue Temp: Warm Drainage Amount: Scant Drainage Description: Serosanguineous Drainage Odor: Slight Odor Results Additional Studies: ITS Impressions Calcaneus X-Ray 08/19/23 07:42 IMPRESSION: Mild soft tissue swelling. No subcutaneous air or radiodense foreign body. No acute bony involvement. Impression dictated by: Autsyn Day M.D.08/19/2023 10:46 AM Dictation Location: [place] [address] Height: 5 ft 9 in Weight: 69.853 [...] 14 Dictated By: Martha Wilkes APRN DD/ 24 Signed By: <Electronically signed by IAIN Wilkes> 08/26/23 10[address] [facility] Work Phone: 1(859) 752-664402-26-2024 Progress note Author Brandy Banks [facility] August 23, 2023 12:54pm Note Date/Time August 19, 2023 7:41am [facility] [address] [place] [address] Wound Center Provider Note Signed Patient: Gagandeep Ahn MR#: [id number] : 1950 Acct:[id number] Age/Sex: 72 / M Copies to: MD Kota Peacock APRN, BLACKENER Martha Wilkes APRN~ HPI Date of Visit Date of Visit: Date of Service: 08/19/2023 Time of Service: 07:35 Narrative HPI: 08/19/23 Gagandeep is a 72-year-old male presenting to [facility] care [facility] for an initial visit for evaluation and treatment for bilateral heel ulcers. Please note that his daughter Soila is with him for the entire visit. Gagandeep does currently reside at an assisted living facility. We we will [facility] him due to the taxing [...] 2023 right heel ulcer Mode of Arrival/ Php Programmer: Family Assistive Device Used Today: Wheelchair Appetite Description: Within Normal Limits Who helps w/ dressing change?: Home Health Why Do You Need Help?: Can't Reach Ulcer, Limited mobility, Unsafe leave home byself and Taxing effort to leave home Smoking Status: Never smoker [facility] Medical History (Updated 08/19/23 @ 07:38 by [...] 3) Bed Appearance: Black Dry, Black Moist, Elberta and Yellow Percent of Wound Bed Granulated/Red: 2 Percent of Devitalized: 98 Length (cm): 2.8 Width (cm): 3 Depth (cm): 0.2 CM Sq: 8.400 Surrounding Tissue Appearance: Elberta Surrounding Tissue Temp: Warm Drainage Amount: Moderate Drainage Description: Serosanguineous Drainage Odor: Slight Odor Left Heel: Type: Pressure/Injury Ulcer (w/diabetes) Pressure Ulcer/Injury Staging: Unstageable (at least stage 3) Bed Appearance: Black Dry, Black Moist and Yellow Percent of Wound Bed Granulated/Red: 0 Percent of Devitalized: 100 Length (cm): 1.7 Width (cm): 1.3 Depth (cm): 0.2 CM Sq: 2.210 Surrounding Tissue Appearance: Elberta Surrounding Tissue Temp: Warm Drainage Amount: Moderate [...] <Electronically signed by MD Brandy Banks> 08/23/23 [facility] Work Phone: 1(979) 487-387701-30-2024 Miscellaneous Notes* Telephone Encounter - Marcella Jones - 07/27/2023 3:25 PM EST Patient contacted our office to schedule appointment, however, we have not received patients referral. [employer] explained that in order to schedule we would need a referral, office notes and a updated demographics sheet. [employer] also gave patient the referrals fax number of [phone]. Patient was understanding. Please advise documented in this encounterMercy HealthUrban [facility] [id number] Telephone encounter Note* Telephone Encounter - Marcella Jones - 07/27/2023 3:25 PM EST Patient contacted our office to schedule appointment, however, we have not received patients referral. [employer] explained that in order to schedule we would need a referral, office notes and a updated demographics sheet. [employer] Worker Maintenance also gave patient the referrals fax number of [phone]. Patient was understanding. Please advise [facility] [phone] Evaluation note* Encounter Date Diagnosis Assessment Notes Treatment Notes Treatment Clinical Notes Apr, Type 2 diabetes mellitus with hyperglycemia (ICD-10 - E11.65) 1. Uncontrolled, a Type 2 diabetes with A1c of 9.1%. 2. Blood glucose levels significantly higher. According to ryan 2 cgm download 05/11/2023-05/24/20 23: Avg glucose [...] BMI 27.0-27.9,adult (ICD-10 - Z68.27) see above Recite Me Other 08-14-2023 Evaluation note* Encounter Date Diagnosis [...] f/u with pcp for further recommendation. 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 Recommend continue to hold levemir; however, if [...] f/u with pcp for further recommendation. Sep, assisted current use of insulin (ICD-10 - Z79.4) Sep, Vitamin B 12 deficiency (ICD-10 - E53.8) 08/2022 vit b 12 388 Sep, BMI 26.0-26.9,adult (ICD-10 - Z68.26) 6 pound weight loss from last visit, continue with weight loss efforts Sep, Wound of right foot (ICD-10 - S91.301A) Referral to Dr. Dimas Recite Me Other 01-24-2023 History of Present illness Narrative* Moise Ramos MD - 07/21/2022 8:41 AM EST PATIENT NAME: Gagandeep Ahn DATE: 07/21/2022 PRIMARY CARE PHYSICIAN: Kota Hyman CNP ([facility]) OTHER PHYSICIANS: Dr. Brandy Banks, [...] As Directed March 31, 2019 10:06am 03-31-2019 [facility] ([id number]) busPIRone (BUSPAR) 10 mg tablet Take 10 mg by mouth three times daily. QUEtiapine (SEROQUEL) 50 mg tablet Take 50 mg by mouth twice daily. 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 06/04/2020 CT chest ([facility]) Stable findings. 06/04/2020 CT abdomen/pelvis ([facility]) No malignant or metastatic disease. Tiny liver and left renal cyst. Enlarged prostate. Cholelithiasis. 07/06/2019 Bone density exam ([facility]) Normal/osteopenia of left femoral neck and forearm [...] CC: Dr. 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 Controlled, a Type 2 diabetes with A1c of 6.4 %. 2. Blood glucose levels according to [employer] 2 cgm download 03/13/2022-03/26/2022 : Avg glucose [...] (hypertension) (ICD-10 - I10) on arb Feb, assisted current use of insulin (ICD-10 - Z79.4) Feb, Hypoglycemia associated with type 2 diabetes mellitus (ICD-10 - E11.649) Feb, Vitamin B 12 deficiency (ICD-10 - E53.8) 07/2021 vit b 12 >1500 Feb, BMI 27.0-27.9,adult (ICD-10 - Z68.27) 8 pound weight loss from last visit, continue with weight loss efforts [employer] [facility] Other 06-14-2022 Evaluation note* Encounter Date Diagnosis [...] even just a little bit - MET [facility] Other 03-16-2022 Evaluation note* Encounter Date Diagnosis [...] walking daily, even just a little bit [employer] Other 03-01-2022 Evaluation note* Encounter Date Diagnosis Assessment Notes Treatment Notes Treatment Clinical Notes Aug, Type 2 diabetes mellitus with hyperglycemia (ICD-10 - E11.65) 1. Controlled, a Type 2 diabetes with A1c of 6.9% improved from 07/14/2021 a1c was 8.5%. 2. Blood glucose levels improved from last visit. According to [employer] 2 cgm download 08/13/2021-08/26/2021: Avg glucose 132. >250-0%, [...] (hypertension) (ICD-10 - I10) on arb Aug, assisted current use of insulin (ICD-10 - Z79.4) Aug, Hypoglycemia associated with type 2 diabetes mellitus (ICD-10 - E11.649) Aug, Vitamin B 12 deficiency (ICD-10 - E53.8) 07/2021 vit b 12 >1500 Aug, BMI 28.0-28.9,adult (ICD-10 - Z68.28) 12 pound weight loss from last visit, continue with weight loss efforts [employer] [facility] Other 02-09-2022 Evaluation note* Encounter Date Diagnosis [...] call office if BG are running low [employer] Other 01-31-2022 Evaluation note* Encounter Date Diagnosis [...] 90-130 ac 120-180 hs. Patient does understand fvihu-cmikldfj-wfljb meal dosing and adding ICS, discussed with [...] sensor sample while patient awaits shipment from [facility] Medical for Ryan order and approval for [...] DME phone number to pt, will call [facility] event representative to check on Ryan sensor order. 90 minutes was spent on education by Isabella BAY, RN. Reviewed ryan cgm download 07/15/21-: Avg glucose 151. >250-4%, >180-16%, 70-180-80%, <70-0%, <54-0%. CV 29.7%. Noted 07/27-07/28 early am glucose <70 recommend reducing levemir by 2 units. Corinna TIMMONS, NIKOLE-Mandy, BC-ADM [employer] [facility] Other 01-25-2022 NoteHNO ID: [id number] Author: Moise Ramos MD Service: ? Author Type: Physician Type: Progress Notes Filed: 07/22/2021 9:06 PM Note Text: PATIENT NAME: Gagandeep Ahn DATE: 07/22/2021 PRIMARY CARE PHYSICIAN: Kota Hyman CNP ([facility]) OTHER PHYSICIANS: Dr. Brandy Banks, [...] As Directed March 31, 2019 10:06am 03-31-2019 [facility] ([id number]) busPIRone (BUSPAR) 10 mg tablet Take 10 mg by mouth three times daily. QUEtiapine (SEROQUEL) 50 mg tablet Take 50 mg by mouth twice daily. insulin detemir U-100 (LEVEMIR) 100 unit/mL (3 mL) injection pen insulin detemir Insulin Detemir U-100 Active 17 UNIT Subcutaneous Daily March 31, 2019 10:08am 03-31-2019 [facility] ([id number]) tiotropium (SPIRIVA) 18 mcg inhalation capsule tiotropium Tiotropium [place] Active 2 PUFF Inhalation Daily March 31, 2019 10:06am 03-31-2019 [facility] ([id number]) losartan (COZAAR) 50 mg tablet Take 50 [...] Stoma or Indwelling Cathet (more content not included)...[facility]01[facility] Evaluation note* Encounter Date Diagnosis Assessment [...] pen, sample ryan 2 cgm. Application for [employer] will apply for levemir, ozempic, and fiasp to take place of [employer]. Sent order for ryan 2 cgm to dme. 7. F/u apt in two weeks with hospital educator for cgm download/review log book. 8. Referral to RD Jun, Dietary counseling and surveillance (ICD-10 - Z71.3) see above Jun, Hyperlipidemia (ICD-10 - E78.5) on statin Jun, HTN (hypertension) (ICD-10 - I10) on arb Jun, assisted current use of insulin (ICD-10 - Z79.4) Jun, Hypoglycemia associated with type 2 diabetes mellitus (ICD-10 - E11.649) Pt would greatly benefit from senior care personal use of CGM device such as [...] educating the patient by Jenna Hennessy RN. [facility] Other 07-13-2021 NoteHNO ID: [id number] Author: Stephani Ruelas APRN.CORBIN Service: ? Author Type: Nurse Practitioner Type: Progress Notes Filed: 01/07/2021 3:45 PM Note Text: PATIENT NAME: Gagandeep Ahn DATE: 01/07/2021 (Elements copied from Moise Ramos MD note dated 07/22/2020 , have been reviewed and updated where appropriate, and all reflect current assessment and medical decision making during today's encounter, January 07, 2021) PRIMARY CARE PHYSICIAN: Kota Hyman CNP ([facility]) OTHER PHYSICIANS: Dr. Brandy Banks, [...] As Directed March 31, 2019 10:06am 03-31-2019 [facility] ([id number]) busPIRone (BUSPAR) 10 mg tablet Take 10 mg by mouth three times daily. QUEtiapine (SEROQUEL) 50 mg tablet Take 50 mg by mouth twice daily. insulin detemir U-100 (LEVEMIR) 100 unit/mL (3 mL) injection pen insulin detemir Insulin Detemir U-100 Active 17 UNIT Subcutaneous Daily March 31, 2019 10:08am 03-31-2019 [facility] ([id number]) tiotropium (SPIRIVA) 18 mcg inhalation capsule tiotropium Tiotropium [place] Active 2 PUFF Inhalation Daily March 31, 2019 10:06am 03-31-2019 [facility] ([id number]) losartan (COZAAR) 50 mg tablet Take 50 [...] Once exam is comp (more content not included)...[facility] noteNo InformationNort [employer] Other Evaluation noteNo assessment information available [facility] Work Phone: Evaluation note* Diagnosis Malignant neoplasm of descending colon (HCC)- Primary Malignant neoplasm of descending colon documented in this [facility]* Diagnosis Onset Date Resolution Status At high risk for skin breakdown acute COPD (chronic obstructive pulmonary disease) acute Diabetes acute Hyperlipemia acute Neuropathy acute PAD (peripheral artery disease) acute Ulcer of left heel acute Ulcer of right heel acute Weakness acute [facility] Work Phone: Evaluation note* Diagnosis Onset Date Resolution Status At high risk for skin breakdown acute COPD (chronic obstructive pulmonary disease) acute Diabetes acute Hyperlipemia acute Neuropathy acute PAD (peripheral artery disease) acute Ulcer of left heel acute Ulcer of right heel acute Weakness acute Ulcer of right heel acute [facility] Work Phone: Evaluation note* Diagnosis Urinary retention- Primary Unspecified retention of urine [facility] Diagnosis Onset Date Resolution Status Ulcer of right heel acute At high risk for skin breakdown acute Atherosclerosis of [place] of both lower extremities acute COPD (chronic obstructive pulmonary disease) acute Diabetes acute Hyperlipemia acute Neuropathy acute PAD (peripheral artery disease) acute Pressure ulcer of right heel, stage 3 acute Ulcer of left heel acute Ulcer of right heel acute Weakness acute [facility] Work Phone: Evaluation note* Diagnosis Onset Date Resolution Status Ulcer of right heel acute At high risk for skin breakdown acute Atherosclerosis of [place] of both lower extremities acute COPD (chronic obstructive pulmonary disease) acute Diabetes acute Hyperlipemia acute Neuropathy acute PAD (peripheral artery disease) acute Pressure ulcer of right heel, stage 3 acute Ulcer of left heel acute Ulcer of right heel acute Weakness acute PAD (peripheral artery disease) acute [facility] Work Phone: Evaluation note* Diagnosis Onset Date Resolution Status At high risk for skin breakdown acute Atherosclerosis of [place] of both lower extremities acute COPD (chronic obstructive pulmonary disease) acute Diabetes acute Hyperlipemia acute Neuropathy acute PAD (peripheral artery disease) acute Pressure ulcer of right heel, stage 3 acute Ulcer of left heel acute Ulcer of right heel acute Weakness acute PAD (peripheral artery disease) acute Atherosclerosis of [place] of both lower extremities acute [facility] Work Phone: History general Narrative - Reported* [...] Surgical History Cataract Hospitalization History lumbar fx [facility] [employer] Other InstructionsNot on filedocumented in this encounter [facility] SystemInstructions* Attachments The following attachments cannot be sent through Care Everywhere. * Chronic obstructive pulmonary disease (COPD) (Guinean) documented in [facility] encounterNorth[facility] CenterWE[facility] SystemReason for visit Narrative Referral from Kota Hyman, New patient Type 2 IDDM apt with CAMILO Weinstein APRN, KRISSY-ADMNo [employer] Other Summary Purpose Family History Relationship Condition Age at Onset Recorded Date/T [...] sister Unknown Malignant neoplasm Unknown Advance Directives Advance Directive Response Recorded Date/ Time Advance [...] by wound care for abnormal pvr [place] [facility] [place] Reason for Visit At high risk for ski n breakdown COPD (chronic obstructive pulmonary disease) Diabetes Hyperlipemia Neuropathy PAD (peripheral artery disease) Ulcer of left heel Ulcer of right heel Weakness Chief Complaint e11.59 i70.245 i70.2 35 cath issues Open Wound Referred by wound care for abnormal pvr [place] [facility] [place] PAD w/ Right Heel Ulcer PAD w/ Right Heel Ulcer Reason for Visit At high risk for ski n breakdown COPD (chronic obstructive pulmonary disease) Diabetes Hyperlipemia Neuropathy PAD (peripheral artery disease) Ulcer of left heel Ulcer of right heel Weakness Ulcer of right heel Chief Complaint e11.59 i70.245 i70.2 35 cath issues Referred by wound care for abnormal pvr [place] [facility] [place]AD w/ Right Heel Ulcer PAD w/ Right Heel Ulcer Open Wound - [place] [employer] [place] [phone] I73.9 4 WK F/U ANGIOGRAM/ANGIOPLASTY; AZUL LEFT LEG Reason for Visit Ulcer of right heel At high risk for skin breakdown Atherosclerosis of yocha dehe artery of both lower extremities COPD (chronic obstructive pulmonary disease) Diabetes Hyperlipemia Neuropathy PAD (peripheral artery disease) Pressure ulcer of right heel, stage 3 Ulcer of left heel Ulcer of right heel Weakness Chief Complaint e11.59 i70.245 i70.2 35 cath issues Referred by wound care for abnormal pvr [place] [facility] [place]AD w/ Right Heel Ulcer PAD w/ Right Heel Ulcer Open Wound - [employer] [employer] [place] [phone] I73.9 4 WK F/U ANGIOGRAM/ANGIOPLASTY; AZUL LEFT LEG Reason for Visit Ulcer of right heel At high risk for skin breakdown Atherosclerosis of [place] dehe artery of both lower extremities COPD (chronic obstructive pulmonary disease) Diabetes Hyperlipemia Neuropathy PAD (peripheral artery disease) Pressure ulcer of right heel, stage 3 Ulcer of left heel Ulcer of right heel Weakness PAD (peripheral artery disease) Chief Complaint e11.59 i70.245 i70.2 35 cath issues Referred by wound care for abnormal pvr [place] [facility] [place] PAD w/ Right Heel Ulcer PAD w/ Right Heel Ulcer Open Wound - [place] [employer] [place] [phone] I73.9 4 WK F/U ANGIOGRAM/ANGIOPLASTY; AZUL LEFT LEG Unknown Reason for Visit Ulcer of right heel At high risk for skin breakdown Atherosclerosis of [place] dehe artery of both lower extremities COPD (chronic obstructive pulmonary disease) Diabetes Hyperlipemia Neuropathy PAD (peripheral artery disease) Pressure ulcer of right heel, stage 3 Ulcer of left heel Ulcer of right heel Weakness PAD (peripheral artery disease) Chief Complaint PAD w/ Right Heel Ul cer PAD w/ Right Heel Ulcer Open Wound - [place] [phone] I73.9 4 WK F/U ANGIOGRAM/ANGIOPLASTY; AZUL LEFT LEG Unknown 2 MONTH WOUND CHECK (NO TESTING) Reason for Visit At high risk for ski n breakdown Atherosclerosis of [place] dehe artery of both lower extremities COPD (chronic obstructive pulmonary disease) Diabetes Hyperlipemia Neuropathy PAD (peripheral artery disease) Pressure ulcer of right heel, stage 3 Ulcer of left heel Ulcer of right heel Weakness PAD (peripheral artery disease) Atherosclerosis of [place] dehe artery of both lower extremities Reason for Referral Reason Right second toe ulc er Diagnosis 1 Type 2 diabetes philip itus with hyperglycemia (E11.65) Referral Organization [facility] Referring Provider First Name Delores Referring Provider Last Name Emiliano Referring Provider Specialty Nurse Pract itioner Referred Organization [facility] Referred Provider SUZE LEVIN Referred Address ,[place], [place],[address] Referred Provider Specialty Podiatry - S urgical Chiropody Referral Priority Routine Referral Appointment Date 2022-10-30 General Notes Sammie Price 09/27 02:29:42 PM >spoke to Sarah. Appt 10/30/22 at 10am in the [place] office. Will put patient on a cancellation for sooner appt. Additional Source Comments (unrecognized sect ion and content) No Status Records FoundNo Status Records FoundNo Status Records FoundNo Status Records FoundNo Status Records FoundNo Status Records FoundNo Status Records Found INFORMATION SOURCE (unrecogn ized section and content) DATE CREATED AUTHOR 07/26/2021 [facility] DATE CREATED AUTHOR AUTHOR'S ORGANIZ ATION 09/30/2023 [facility] DATE CREATED AUTHOR AUTHOR'S ORGANIZ ATION 11/10/2023 [facility] DATE CREATED AUTHOR AUTHOR'S ORGANIZ ATION 11/18/2023 [facility] EPIC DATE CREATED AUTHOR AUTHOR'S ORGANIZ ATION 11/22/2023 [facility] DATE CREATED AUTHOR AUTHOR'S ORGANIZ ATION 11/22/2023 [facility] DATE CREATED AUTHOR AUTHOR'S ORGANIZ ATION 12/[facility] REASON FOR VISIT (unrecogniz ed section and content) Reason Comments Colon Cancer Follow up Reason Onset Date Comments referral 07/27/2023 Reason Comments Urinary Retention Care Teams (unrecognized sec tion and content) Team Status: Active Member Role Status Dates Kota Hyman APRN FINANCIAL AID ADVISOR-C Primary Care Provider, Attend ing Provider Active Team Status: Inactive Member Role Status Dates Kota Hyman APRN FINANCIAL AID ADVISOR-C Primary Care Provider, Attend ing Provider Active Team Status: Active Member Role Status Dates Kota Hyman APRN FINANCIAL AID ADVISOR-C Primary Care Provider Active Team Status: Inactive Member Role Status Dates Kota Hyman APRN FINANCIAL AID ADVISOR-C Primary Care Provider Active Brandy Banks MD Attending Provider Active Broadcast Operations Technician Relationship Specialty Start Date End Date Kota Hyman CNP [address] [place], [place] [id number] PCP - General Internal Medicine 12/16/17 Broadcast Operations Technician Relationship Specialty Start Date End Date Kota Hyman APRN-CORBIN [address] [place] [address] PCP - General Family Medicine 05/04/23 Team Status: Inactive Member Role Status Dates Delores Cummings APRN Attending Provider Active Start: May 24, 2023 End: May 24, 2023 Team Status: Inactive Member Role Status Dates Kota Hyman APRN FINANCIAL AID ADVISOR-C Primary Care Pr caio Attending Provider Active Start: May 24, 2023 End: May 24, 2023 Team Status: Inactive Member Role Status Dates Kota Hyman APRN FINANCIAL AID ADVISOR-C Primary Care Provider Active Start: August 26, 2023 End: August 26, 2023 Martha Wilkes APRN Attending Provider Active St art: August 26, 2023 End: August 26, 2023 Team Status: Inactive Member Role Status Dates Kota Hyman APRN FINANCIAL AID ADVISOR-C Primary Care Provider Active Start: August 28, 2023 End: August 28, 2023 Jose Enrique Almendarez DO Emergency Provider Active St art: August 28, 2023 End: August 28, 2023 Team Status: Active Member Role Status Dates Kota Hyman APRN FINANCIAL AID ADVISOR-C Primary Care Provider Active Start: September 09, 2023 Martha Wilkes APRN Attending Provider Active St art: September 09, 2023 Team Status: Inactive Member Role Status Dates Kota Hyman APRN FINANCIAL AID ADVISOR-C Primary Care Provider Active Start: September 09, 2023 End: September 09, 2023 Steven Horta MD Attending Provider Active Start: September 09, 2023 End: September 09, 2023 Martha Wilkes APRN Referring Provider Active St art: September 09, 2023 End: September 09, 2023 Team Status: Inactive Member Role Status Dates Kota Hyman APRN FINANCIAL AID ADVISOR-C Primary Care Provider Active Start: September 13, 2023 End: September 13, 2023 Steven Horta MD Attending Provider Active Start: September 13, 2023 End: September 13, 2023 Team Status: Active Member Role Status Dates Kota Hyman APRN FINANCIAL AID ADVISOR-C Primary Care Provider Active Start: September 13, 2023 Steven Horta MD Attending Prov ider, Other Provider Active Start: September 13, 2023 Broadcast Operations Technician Relationship Specialty Start Date End Date Kota Hyman APRN-BLACKENER [address] [place] [id number] PCP - General Family Medicine 05/04/23 Team Status: Active Member Role Status Dates Kota Hyman APRN FINANCIAL AID ADVISOR-C Primary Care Provider Active Start: September 30, 2023 Martha Wilkes APRN Active Start: A pril 2023 Beau Presley DPM (WND) Attending Provider Active Start: September 30, 2023 Team Status: Active Member Role Status Dates Kota Hyman APRN FINANCIAL AID ADVISOR-C Primary Care Provider Active Start: October 07, 2023 Steven Horta MD Attending Provider Active Start: October 07, 2023 Team Status: Inactive Member Role Status Dates Kota Hyman APRN FINANCIAL AID ADVISOR-C Primary Care Provider Active Start: October 07, 2023 End: October 07, 2023 Steven Horta MD Attending Provider Active Start: October 07, 2023 End: October 07, 2023 Team Status: Inactive Member Role Status Dates Kota Hyman APRN FINANCIAL AID ADVISOR-C Primary Care Provider Active Start: September 30, 2023 End: September 30, 2023 Martha Wilkes APRN Active Start: A prijeanie 2023 End: September 30, 2023 Beau Presley DPM (WND) Attending Provider Active Start: September 30, 2023 End: September 30, 2023 Team Status: Inactive Member Role Status Dates Kota Hyman APRN FINANCIAL AID ADVISOR-C Primary Care Provider Active Start: November 18, 2023 End: November 18, 2023 Hubert Strickland DPM MS Attending Provider Active Start: November 18, 2023 End: November 18, 2023 Team Status: Inactive Member Role Status Dates Kota Hyman APRN FINANCIAL AID ADVISOR-C Primary Care Provider Active Start: December 09, 2023 End: December 09, 2023 Austyn Martinez MD Attending Provider Active S tart: December 09, 2023 End: December 09, 2023 Goals (unrecognized section and content) Goals may be documented in a n alternate section Source Comments (unrecognize d section and content) In the event this informatio n is protected by the Federal Confidentiality of Alcohol and Drug Abuse Patient Records regulations: The Federal rules restrict any use of the information to criminally investigate or prosecute any alcohol or drug abuse patient. FOR RECORDS PERTAINING TO PATIENTS WHO ARE [...] BE BASED ON THE PRIMARY CLINICAL RECORDS. [facility]. provides no warranty or guarantee of the accuracy or completeness of information in this document.
== END 2023-12-15 11:19 | disposition home or self-care (01) ==
LOC: WC 11:18
PROVIDERS: Family Provider Family Medicine; PCP Nurse Practitioner Adult Health; Visit Provider Podiatrist Foot & Ankle Surgery
DX: E11.621 Type 2 diabetes mellitus with foot ulcer (principal); L97.412 Non-pressure chronic ulcer of right heel and midfoot with fat layer exposed
CPT/HCPCS: G0463

== ENCOUNTER 2023-12-21 15:54 | Outpatient (OUT) | payer MEDICARE, MEDICAID, SELFPAY ==
--- OUTSIDE RECORDS SUMMARY | 2023-12-21 16:17 | XMS_ITS ---
Patient Summarization (C-CDA 2.1 CCD) Created on: December 21, 2023 Gagandeep Ahn : 1950 Sex: Male Author Organization Sample organization Care Team Providers Care Web Operations Specialist Name Role Phone Delores Cummings Unavailable Marcella Christian Unavailable Janine Melvin Unavailable Anglim, BLACK LEATHER BUFFER Kota Primary Care Provider Anglim, BLACK LEATHER BUFFER Kota Attending Provider [phone] Anglim, BLACK LEATHER BUFFER Kota Primary Care Provider Anglim, BLACK LEATHER BUFFER Kota Attending Provider MD Brandy Banks Attending Provider [phone] Anglim MICROSOFT ARCHITECT, Kota Primary Care Provider Anglim BLACK LEATHER BUFFER-MICROSOFT ARCHITECT, Kota A Primary Care Provider Anglim, BLACK LEATHER BUFFER Kota Primary Care Provider Anglim, BLACK LEATHER BUFFER Kota Attending Provider [phone] Anglim, BLACK LEATHER BUFFER Kota Primary Care Provider IAIN [place] Attending Provider DO Jose Enrique Almendarez Emergency [...] Unavailable PADMA BLAIR Attending Unavailable PADMA BLAIR T Attending Unavailable BLAIRPADMA T Referring Unavailable ANGLIM, KOTA A Primary Care Unavailable BLAIRPADMA Attending Unavailable BLAIRPADMA T Referring Unavailable ANGLIM, KOTA A Primary Care Unavailable KIRILL MADRID Attending Unavailable MERCYKIRILL SAUCEDA H Referring Unavailable ANGLIM, KOTA A Primary Care Unavailable ANGLIM, KOTA A Primary Care Unavailable RADHA DUARTE Attending Unavailable KARCHYUSRA CUENCA Attending Unavailable YUSRA KOENIG Referring Unavailable ANGLIM, KOTA A Primary Care Unavailable ANGLIM, KOTA A Primary Care Unavailable THAI ORLANDO Attending Unavailable BRANDY BAUTISTA Attending Unavailable SWIFT, UNIQUE Referring Unavailable LEVINSUZE W Attending Unavailable SWIFT UNIQUE Referring Unavailable LEVINSUZE W Attending Unavailable MARCOS HALL Attending Unavailable YING Strickland Attending Provider LENI MERIDA Attending Unavailable Steven Horta Admitting Unavailabl e Steven Horta Attending Unavailabl e Anglim, Kota Primary Care Unavailable Jose Enrique Almendarez Attending Unavailable Anglim, Kota Primary Care Unavailable Jose Enrique Almendarez Admitting Unavailable Hubert Strickland Admitting Unavailable Hubert Strickland Attending Unavailable Anglim, Kota Primary Care Unavailable Anglim, Kota Attending Unavailable Anglim, Kota Admitting Unavailable Anglim, Kota Primary Care Unavailable Anglim, Kota Primary Care Unavailable Beau Presley (WND) Admitting Unavailable Beau Presley (WND) Attending Unavailable Anglim, Kota Primary Care Unavailable CopMartha michael Admitting Unavailable Seth Wilkesia Attending Unavailable Steven Horta Admitting Unavailabl e [...] Care Unavailable IAIN Hyman Primary Care Provider [phone] Allergies Allergy Classification Reported Allergen(s) Allergy Type Date of Onset Reaction(s) Facility (1 source) ALLERGIES NOT ON FILE; Translations: [ALLERGIES NOT ON FILE] Propensity to adverse reactions (disorder) [facility] Encounters Encounter Date Encounter Type Care Provider Facility Start: 12-09-2023 End: 12-09-2023 ambulatory IAIN Hyman Work Phone: [facility] Work Phone: Start: 12-09-2023 End: 12-09-2023 Patient encounter procedure IAIN Hyman Work Phone: [facility] Work Phone: Start: 11-30-2023 End: 11-30-2023 ambulatory JO Goodrich [facility] Start: 11-18-2023 End: 11-18-2023 ambulatory Hubert Smith [facility] Facility:[facility] Start: 11-18-2023 End: 11-18-2023 ambulatory IAIN Hyman Work Phone: [facility] Work Phone: Start: 11-18-2023 End: 11-18-2023 Departed Referred IAIN Hyman Work Phone: [facility] Start: 11-17-2023 End: 11-17-2023 ambulatory LENI [facility] Start: 11-17-2023 End: 11-17-2023 Encounter for preprocedural cardiovascular examination LENI MERIDA [facility] Start: 11-16-2023 End: 11-16-2023 ambulatory MARCOS HALL Not Available Start: 11-09-2023 End: 11-09-2023 ambulatory JO Goodrich [facility] Start: 11-07-2023 End: 11-07-2023 Emergency department patient visit KOTA A [facility] Start: 11-04-2023 End: 11-05-2023 Emergency department patient visit YUSRA KOENIG [facility] Start: 11-03-2023 End: 11-03-2023 ambulatory VENUS Cabral [facility] Start: 10-29-2023 End: 10-30-2023 Emergency department patient visit PADMA BLAIR [facility] Start: 10-29-2023 End: 10-29-2023 Emergency department patient visit KOTA Watts [facility] Start: 10-08-2023 End: 10-09-2023 ambulatory [facility] Start: 10-07-2023 End: 10-07-2023 ambulatory Steven Horta Facility:[facility] Start: 10-07-2023 End: 10-07-2023 ambulatory IAIN Hyman Work Phone: [facility] Work Phone: Start: 10-07-2023 End: 10-07-2023 Patient encounter procedure BLACK LEATHER BUFFERMj Hyman Work Phone: [facility] V[facility] Work Phone: Start: 09-30-2023 End: 09-30-2023 ambulatory Kota Hyman Facility:[facility] Start: 09-30-2023 End: 09-30-2023 ambulatory IAIN Hyman Work Phone: [facility] Work Phone: Start: 09-30-2023 End: 09-30-2023 Discharged Recurring BLACK LEATHER BUFFERMj Hyman Work Phone: [facility] Work Phone: Start: 09-30-2023 Registered Recurring BLACK LEATHER BUFFER Edilberto watts Anglim Work Phone: [facility] Work Phone: Start: 09-28-2023 End: 09-29-2023 ambulatory JO VERONICA [facility] Start: 09-28-2023 End: 09-28-2023 ambulatory JO VERONICA [facility] Start: 09-28-2023 End: 09-28-2023 Office consultation new/estab patient 40 min Jo Veronica MD Work Phone: [facility] Comment on above: Urinary retention (P rimary Dx) Start: 09-13-2023 End: 09-13-2023 Emergency department patient visit KOTA HYMAN [facility] Start: 09-13-2023 End: 09-13-2023 ambulatory Steven Horta Facility:[facility] Start: 09-13-2023 Non-patient / Non-visit IAIN Hyman Work Phone: [facility] V[facility] Work Phone: Start: 09-13-2023 End: 09-13-2023 Admission to same day surgery center IAIN Hyman Work Phone: [facility]-Interventional Radiology Work Phone: Start: 09-13-2023 End: 09-13-2023 ambulatory IAIN Hyman Work Phone: [facility] Work Phone: Start: 09-09-2023 End: 09-09-2023 ambulatory IAIN Hyman Work Phone: [facility] Work Phone: Start: 09-09-2023 End: 09-09-2023 Patient encounter procedure BLACK LEATHER BUFFERMj Hyman Work Phone: [facility] V[facility] Work Phone: Start: 09-09-2023 Registered Recurring IAIN Hyman Work Phone: [facility] Work Phone: Start: 08-28-2023 End: 08-28-2023 Emergency department patient visit Jose Enrique Almendarez Facility:[facility] Start: 08-28-2023 End: 08-28-2023 Emergency department patient visit IAIN Hyman Work Phone: [facility]-Emergency Room Work Phone: Start: 08-26-2023 End: 08-26-2023 ambulatory Kota Hyman Facility:[facility] Start: 08-26-2023 End: 08-26-2023 Patient encounter procedure IAIN Hyman Work Phone: [facility]-Ultrasound [facility] [place] Work Phone: Start: 07-27-2023 Telephone encounter Marcella Jones [facility] Neu[facility] Comment on above: referral Start: 07-01-2023 End: 07-01-2023 ambulatory AMILCAR NORTON [facility] Other Start: 07-01-2023 Telephone encounter Delores Cummings [facility] Start: 06-26-2023 End: 06-30-2023 Emergency department patient visit [facility] Start: 06-26-2023 End: 06-30-2023 Evaluation and management of inpatient KOTA Watts [facility] Start: 06-15-2023 End: 06-15-2023 ambulatory SUZE LEVIN Not Available Start: 05-27-2023 End: 05-27-2023 ambulatory SUZE LEVIN Not Available Start: 05-24-2023 End: 05-24-2023 Discharged Recurring IAIN Hyman Work Phone: [facility] Work Phone: Start: 05-24-2023 (DM) Diabetes Delores Cummings [facility] Start: 05-24-2023 End: 05-25-2023 ambulatory IAIN Hyman Work Phone: [facility] Other Start: 05-24-2023 End: 05-24-2023 Patient encounter procedure IAIN Hyman Work Phone: [facility] Work Phone: Start: 05-18-2023 End: 05-18-2023 ambulatory BRANDY BANKS V Not Available Start: 03-31-2023 End: 03-31-2023 ambulatory Tondra Mapus Other [facility] Other Start: 03-31-2023 Telephone encounter Tondra Mapus [facility] Start: 02-08-2023 (DM) Diabetes Tondra Mapus [facility] Start: 02-08-2023 End: 02-08-2023 ambulatory Tondra Mapus Other [employer] Other Start: 12-23-2022 End: 12-23-2022 ambulatory Tondra Mapus Other [facility] Other Start: 12-23-2022 Telephone encounter Tondra Mapus [facility] Start: 10-21-2022 (DM) Diabetes Tondra Mapus [facility] Start: 10-21-2022 End: 10-21-2022 ambulatory Tondra Mapus Other [facility] Other Start: 08-30-2022 End: 08-30-2022 ambulatory Tondra Mapus Other [employer] Other Start: 08-30-2022 Telephone encounter Tondra Mapus [facility] Start: 07-21-2022 End: 07-21-2022 ambulatory Moise Ramos MD Work Phone: Hematology/Oncology Comment on above: 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) Start: 07-21-2022 End: 07-21-2022 Patient encounter procedure Moise Ramos MD Work Phone: [facility] Start: 07-20-2022 (DM) Diabetes Tondra Emiliano [facility] Start: 07-20-2022 End: 07-20-2022 ambulatory Tondraury Cummings Other [employer] Other Start: 05-12-2022 End: 05-12-2022 ambulatory Tondraury Cummings Other [employer] Other Start: 05-12-2022 Telephone encounter Tondra Cummings [facility] Start: 05-11-2022 End: 05-11-2022 Admission to same day surgery center BLACK LEATHER BUFFERMj Hyman Work Phone: [facility]-Surgery Center [facility] [place] Start: 05-11-2022 End: 05-11-2022 ambulatory IAIN Hyman Work Phone: [facility] Work Phone: Start: 05-07-2022 End: 05-07-2022 ambulatory IAIN Hyman Work Phone: [facility] Work Phone: Start: 05-07-2022 End: 05-07-2022 Patient encounter procedure IAIN Hyman Work Phone: [facility] Start: 04-08-2022 End: 04-08-2022 ambulatory IAIN Hyman Work Phone: [facility] Work Phone: Start: 04-08-2022 End: 04-08-2022 Patient encounter procedure IAIN Hyman Work Phone: [facility] Start: 03-26-2022 Registered Recurring IAIN Hyman Work Phone: [facility] Start: 03-26-2022 (DM) Diabetes Tondra Emiliano [facility] Start: 03-26-2022 End: 03-26-2022 ambulatory Tondra Mapus Other [employer] Other Start: 03-09-2022 End: 03-09-2022 ambulatory Tondra Mapus Other [employer] Other Start: 03-09-2022 Telephone encounter Tondra Mapus [facility] Start: 01-29-2022 End: 01-29-2022 ambulatory Tondra Mapus Other [employer] Other Start: 01-29-2022 Telephone encounter Tondra Mapus [facility] Start: 12-09-2021 (Skimmer) Sk[facility]ette [facility] Start: 12-09-2021 End: 12-09-2021 ambulatory Marcella Christian Other [employer] Other Start: 11-19-2021 End: 11-19-2021 ambulatory Tondra Mapus Other [employer] Other Start: 11-19-2021 Telephone encounter Tondra Mapus [facility] Start: 09-10-2021 (Skimmer) Skimmeranette [facility] Start: 09-10-2021 End: 09-10-2021 ambulatory Marcella Darinelt Other [employer] Other Start: 08-29-2021 End: 08-29-2021 ambulatory Tondra Mapus Other [employer] Other Start: 08-29-2021 Telephone encounter Tondra Mapus 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 Marcella Christian [facility] Start: 08-06-2021 End: 08-06-2021 ambulatory Marcella Christian Other [employer] Other Start: 08-06-2021 Telephone encounter Janine [facility] Start: 07-28-2021 End: 07-28-2021 ambulatory Tondra Mapus Other [employer] Other Start: 07-28-2021 Nursing evaluation o f patient and report Delores Cummings [facility] Start: 07-14-2021 End: 07-14-2021 ambulatory Tondra Jocelineus Other [employer] Other Start: 07-14-2021 [facility] Medical Equipment Procedure Code Equipment Code Equipment Origin al Text Equipment Identifier Dates ORIF, fracture, ankle Orthopaedic bone screw, non-bioabsorbable, non-sterile ()[id number] FDA Start: 08-08-2020 ORIF, fracture, ankle Orthopaedic bone screw, non-bioabsorbable, non-sterile ()[id number] FDA Start: 08-08-2020 ORIF, fracture, ankle Orthopaedic bone screw, non-bioabsorbable, non-sterile ()[id number] FDA Start: 08-08-2020 ORIF, fracture, ankle Orthopaedic bone screw, non-bioabsorbable, non-sterile ()[id number] FDA Start: 08-08-2020 ORIF, fracture, ankle Orthopaedic bone screw, non-bioabsorbable, non-sterile ()[id number] FDA Start: 08-08-2020 ORIF, fracture, ankle Orthopaedic fixation plate, non-bioabsorbable, sterile ()[id number] FDA Start: 08-08-2020 ORIF, fracture, ankle Orthopaedic bone screw, non-bioabsorbable, non-sterile ()[id number] FDA Start: 08-08-2020 ORIF, fracture, ankle Orthopaedic bone screw, non-bioabsorbable, non-sterile ()[id number] FDA Start: 08-08-2020 BD Pen Needle Na no U/F 32G X 4 MM Goals Date Patient Goal Desired Activity /State Personal health goal Comment on above: Formatting of this n ote might be different from the original. Evaluation of progress towards goal: In progress: Snf placement for rehab. Immunizations Immunization Date Immunization Notes Care Provider Fa [facility] 04-28-2021 influenza nasal, unspecified formulation Moise Ramos MD Work Phone: [facility] 04-28-2021 influenza virus vacc ine, unspecified formulation [facility] 04-21-2021 influenza (aIIV4) vaccine, age 65+ yr, quadrivalent, PF (FLUAD QUADRIVALENT) Moise Ramos MD Work Phone: [facility] 10-10-2020 COVID-19 mRNA, Comir edmundo (Pfizer) IAIN Hyman Work Phone: [facility] 09-19-2020 COVID-19 mRNA, Comir edmundo (Pfizer) IAIN Hyman Work Phone: [facility] 04-02-2020 influenza, injectabl e, quadrivalent, contains preservative Moise Ramos MD Work Phone: [facility] 02-20-2020 pneumococcal polysaccharide vaccine, 23 valent Moise Ramos MD Work Phone: [facility] 04-11-2019 influenza, injectabl e, quadrivalent, preservative free Moise Ramos MD Work Phone: [facility] 04-25-2018 influenza, injectabl e, quadrivalent, preservative free Moise Ramos MD Work Phone: [facility] 03-17-2018 influenza, high dose seasonal, preservative-free Moise Ramos MD Work Phone: [facility] 04-28-2017 influenza, injectabl e, quadrivalent, preservative free Moise Ramos MD Work Phone: [facility] 04-28-2017 pneumococcal polysaccharide vaccine, 23 valent Moise Ramos MD Work Phone: [facility] 04-08-2015 influenza, seasonal, injectable, preservative free Moise Ramos MD Work Phone: [facility] 05-05-2013 influenza, seasonal, injectable Moise Ramos MD Work Phone: [facility] Medications Current Medications Medication Drug Class(es) Dates [...] 25, 2020 11:54am take 1 capsule by [facility] every twenty-four hours Doxycycline Hyclate 100 MG [...] Subcutaneous Daily March 31, 2019 10:08am 03-31-2019 [facility] ([id number]) Insulin Detemir U-100 (Levemir Flexpen) 100 unit/mL [...] 2018 8:50am take 2 tablets by mo [facility] in the morning losartan (COZAAR) 50 mg [...] capsule (6 sources) Nitroimidazole Antimicrobial Start: 10-05-19 24 take [...] 2022 12:19pm take 2 tablets by mo [facility] every eight hours as needed for pain [...] as needed Orally every 6 hrs Not-Taking [id number] 200 actuat albuterol 0.09 mg/actuat metered dose inhaler (20 sources) beta2-Adrenergic Agonist Start: 03-31-2019 albut bony HFA (PROVENTIL HFA, VENTOLIN HFA) 90 mcg/actuation inhaler Albuterol Albuterol Sulfate Active 2 PUFF Inhalation As Directed March 31, 2019 10:06am 03-31-2019 [facility] ([id number]) 0 03/31/2019 Active Start: 03-31-2019 End: 10-25-2020 [...] As Directed March 31, 2019 10:06am 03-31-2019 [facility] ([id number]) ARIPiprazole 5 mg oral tablet (20 sources) Atypical Antipsychotic Start: 2 End: 4 take 5 mg by mouth once daily Aripiprazole Discontinued 5 MG PO Daily May 11, 2022 1:00am August 19, 2023 8:42am Start: 11-25-2021 take 1 tablet by roberto once daily ARIPiprazole (ABILIFY) 2 mg tablet [...] Reductase Inhibitor Start: 03-10-20 18 End: 08-19-19 24 take 40 mg by mouth once daily Atorvastatin Discontinued 40 MG PO Daily October 25, 2020 12:00am August 19, 2023 8:42am Comment on above: Take 40 mg by mouth once daily. atropine sulfate 0.025 mg / diphenoxylate hydrochloride 2.5 mg oral tablet (20 sources) Anticholinergic, Cholinergic Muscarinic Antagonist, Antidiarrheal Start: 10-26-19 21 End: 05-11-20 22 take 1 tablet by mouth once daily [...] on above: Take 1 tablet by roberto four times daily as needed for up [...] on above: Take 2 tablets by mo [facility] twice daily. Calcium Carbonate-Vitamin D3 (Oyster Shell [...] Discontinued 1 TAB PO 3x/Day with meals August 09, 2020 12:00am May 11, 2022 [...] 02/08/2017 Active take 1 capsule by mo [facility] three times daily gabapentin (NEURONTIN) 300 mg [...] 100 unit/mL Insulin Pen (7 sources) Start: 021 End: 024 inject 1 dose by subcutaneous injection [...] sources) Prostaglandin Analog Start: 05-11-20 End: 08-19-19 24 take 1 drop(s) into the eye(s) once [...] 08, 2017 12:00am March 31, 2019 11:10am Victoza Not-Taki ng Comment on above: Inject 3 mL subcutan [...] 8 hours as needed. polyethylene glycol 3350 94112 mg powder for oral solution (12 sources) [...] (SPIRIVA) 18 mcg inhalation capsule tiotropium Tiotropium [place] Active 2 PUFF Inhalation Daily March 31, 2019 10:06am 03-31-2019 [facility] ([id number]) 0 03/31/2019 Active Start: 03-31-2019 End: 05-11-2022 take 1 puff(s) by inhalation once daily Tiotropium [place] (Spiriva With Handihaler) 18 mcg Capsule, W/Inhalation Device Discontinued 2 PUFF INHALATION Daily March 31, 2019 12:00am May 11, 2022 12:18pm take 1 capsule by in halation once daily Spiriva HandiHaler 18 MCG 1 capsule by inhaling the contents of the capsule using the HandiHaler device Inhalation Once a day Active Comment on above: tiotropium Tiotropiu m [place] Active 2 PUFF Inhalation Daily March 31, 2019 10:06am 03-31-2019 [facility] ([id number]) vitamin b12 0.1 mg oral tablet (9 [...] 1 tablet Orally Once a day Active Payers Date Payer Category [place]ayer [place] [id number] 2023-Present [phone] [address] [place] [address] [id number] 2023 Medicaid [id number] 2021 Self-pay [id number] 2014 Private Health Insurance [id number] 2014 Unknown [id number] 2.16.840.1.704611.19 2013 Medicare [id number] [id number] .[id number] 2013 Medicare [id number] 2.16.840.1.452427.19 1950 Unknown [id number] 2.16.840.1.282278.3.579.2.1 286 1950 Unknown [id number] 2.16.840.1.453372.3.579.2.1 286 1948 Unknown [id number] 2.16.840.1.340188.3.579.2.1 286 1948 Unknown [id number] 2.16.840.1.752934.3.579.2.1 286 1948 Unknown [id number] 2.16.840.1.634274.3.579.2.1 286 1948 Unknown [id number] 2.16.840.1.516114.3.579.2.1 286 1948 Unknown [id number] 2.16.840.1.787487.3.579.2.1 286 1948 Unknown [id number] 2.16.840.1.236537.3.579.2.1 286 1948 Unknown [id number] 2.16.840.1.363774.3.579.2.1 286 1948 Unknown [id number] 2.16.840.1.521055.3.579.2.1 286 1948 Unknown [id number] 2.16.840.1.877164.3.579.2.1 286 1948 Unknown [id number] 2.16.840.1.139762.3.579.2.1 286 1948 Unknown [id number] 2.16.840.1.632262.3.579.2.1 286 1948 Unknown [id number] 2.16.840.1.612945.3.579.2.1 259 1948 Unknown [id number] 2.16.840.1.279472.3.579.2.1 259 1948 Unknown [id number] 2.16.840.1.283347.3.579.2.1 259 1948 Unknown [id number] 2.16.840.1.740003.3.579.2.1 259 1948 Unknown [id number] 2.16.840.1.109846.3.579.2.1 286 1948 Unknown [id number] 2.16.840.1.603962.3.579.2.1 286 1948 Unknown [id number] 2.16.840.1.301229.3.579.2.1 286 1948 Unknown [id number] 2.16.840.1.046498.3.579.2.1 286 Unknown [id number] 2.16.840.1.681100.3.579.2.5 31 Unknown [id number] 2.16.840.1.604485.3.579.2.5 31 Unknown [id number] 2.16.840.1.083216.3.579.2.5 31 Unknown [id number] 2.16.840.1.553334.3.579.2.5 31 Unknown [id number] 2.16.840.1.588815.3.579.2.5 31 Unknown [id number] 2.16.840.1.555163.3.579.2.5 31 Unknown [id number] 2.16.840.1.528710.3.579.2.5 31 Plan of Treatment Date Care Activity Detail Author Start: 07-21-2025 DIABETES SCREEN DIABETES SCREEN [facility] Start: 09-27-2024 Adult BMI Screening Adult BMI Screen [facility] Start: 09-27-2024 Tobacco Screening Tobacco Screening [facility] Start: 06-29-2024 Adult BMI Screening Adult BMI Screen ing [facility] Start: 06-28-2024 Tobacco Screening Tobacco Screening [facility] Start: 02-27-2024 Influenza vaccination Influenza Vacc ine [facility] Start: 11-03-2023 End: 11-03-2023 Patient encounter procedure 11/03/2023 9:45 AM EDT Office Visit [facility] [address] [place] [address] [place] [address] Venus Ramos PA [address] [place] [address] [facility] Start: 10-08-2023 End: 10-08-2023 ambulatory 10/08/2023 12:30 PM EDT Support Visit [facility] [address] [place] [address] [place] [id number] Jesus Garcia Jr., MD [address] [place] [address] [facility] Start: 10-07-2023 Ankle brachial press ure index [facility] Start: 09-13-2023 [facility] Start: 02-26-2023 COVID-19 Vaccine ( season) COVID-19 Vaccine ( season) [facility] Start: 02-26-2023 Influenza vaccination Influenza Vacc ine [facility] Start: 01-28-2023 Depression Screening Depression Scre ening [facility] Start: 06-28-2022 ADVANCE DIRECTIVE DISCUSSION ADVANCE DIRECTIVE DISCUSSION [facility] Start: 06-28-2022 DEPRESSION ASSESSMENT DEPRESSION ASS ESSMENT [facility] Start: 05-11-2022 End: 05-11-2022 [facility] Start: 02-26-2022 Influenza vaccination INFLUENZA (#1) [facility] Start: 06-24-2021 COVID-19 VACCINE (5 - Booster for Pfizer series) COVID-19 VACCINE (5 - Booster for Pfizer series) [facility] Start: 02-19-2021 PNEUMOCOCCAL: 65+ (2 - PCV) PNEUMOCOCCAL: 65+ (2 - PCV) [facility] Start: 2013 Fall Risk Screening Fall Risk Screen ing [facility] Start: 1998 SHINGRIX VACCINE (1 of 2) SHINGRIX VACCINE (1 of 2) [facility] Start: 1993 COLOGUARD (FIT-DNA) COLOGUARD (FIT-D NA) [facility] Start: 1993 Colonoscopy COLONOSCOPY [facility] Start: 1993 COLORECTAL CANCER SCREENING COLORECTAL CANCER SCREENING [facility] Start: [address] COLONOGRAPHY [facility] Start: 1993 FECAL OCCULT BLOOD FECAL OCCULT BLOO D [facility] Start: 1993 SIGMOIDOSCOPY SIGMOIDOSCOPY [facility] Start: 10-28-1983 LIPID SCREEN LIPID SCREEN [facility] Start: 10-28-1967 Administration of varicella zoster vaccine Zoster (Shingles) Vaccine (1 of 2) [facility] Start: 10-28-1967 DTaP,Tdap and Td Vaccines (1 - Tdap) DTaP,Tdap and Td Vaccines (1 - Tdap) [facility] Start: 10-28-1967 Urine microalbumin profile DTAP,TDAP,TD (1 - Tdap) [facility] Start: 1966 Adult BMI Follow Up Plan Adult BMI Follow Up Plan [facility] Start: 1966 HEPATITIS C SCREENING HEPATITIS C SC REENING [facility] Start: 1948 Medicare Annual Well ness Visit Medicare Annual Wellness Visit [employer] Ankle brachial press ure index [facility] End: 09-27-2024 Bacteria identified in Urine by Culture Urine Culture Microbiology Routine Urinary retention 1 Occurrences starting 09/28/2023 until 09/27/2024 [employer] Work Phone: Comment on above: 1 Occurrences starti ng 09/28/2023 until 09/27/2024 Bacteria identified in Urine by Culture Urine Culture Microbiology Routine Urinary retention 09/28/2023 10:13 PM EDT [employer] Patient Education [facility] Work Phone: Patient referral [facility] Active Problems Problem Classification Problem Date [...] Coronary atherosclerosis; Translations: [Atherosclerotic heart disease of [place] coronary artery with other forms of angina pectoris] Onset: 04-04-2018 06-26-2023 Chronic Coronary atherosclerosis and other heart disease (1 source) Coronary atherosclerosis and other heart disease; Translations: [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 of [...] sources) Long-term current use of insulin; Translations: [shelter (current) use of insulin] Episodic Other aftercare (7 sources) 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 Onset: 07-14-2021 Resolved: [...] 2019-nCoV; Translations: [COVID-19] Onset: 06-26-2023 06-26-2023 Episodic Procedures Date Procedure Procedure Detail Performing Clinician Start: 11-03-2023 Follow-up visit Follow-up VENUS RAMOS Start: 10-07-2023 Ankle brachial pressure index IAIN Hyman Work Phone: Start: 09-22-2023 Investigation of transfusion reaction BLACK LEATHER BUFFER Kota Hyman Work Phone: Start: 09-13-2023 IR Angiogram w/TLA/Stent Left Leg (Bilateral) IAIN Hyman Work Phone: Start: 09-13-2023 IR Angiogram w/TLA/Stent Left Leg (Right) IAIN Hyman Work Phone: Start: 08-28-2023 Urine culture IAIN Hyman Work Phone: Start: 08-26-2023 Pulse volume recorder pneumoplethysmography BLACK LEATHER BUFFER Kota Hyman Work Phone: Start: 08-19-2023 Plain X-ray of bilateral calcanei BLACK LEATHER BUFFER Kota Hyman Work Phone: Start: 05-11-2022 Colonoscopy BLACK LEATHER BUFFER Kota Shantel Work Phone: Start: 04-08-2022 Dual energy X-ray absorptiometry BLACK LEATHER BUFFER Kota Hyman Work Phone: Start: 01-28-2022 Adult depression screening assessment Marcella Jones H/O: surgery Status post hardware removal BLACK LEATHER BUFFER Kota Shantel Work Phone: SARS Antigen (LFIA) IAIN Moffett ra [facility] Work Phone: Results Test Name Value Interpretation Reference Range Facility [facility] 11-18-2023 L Specimen: [id number] Received: 11/18/23 Status: SHAHRZAD Bryant Num: [id number] Spec Type: Surgical Subm Dr: Hubert Strickland DPM, MS Tissues: A Tendon/Sheath (ACHILLES TENDON) B Bone Fragments - Other than Path Fracture (RT CALCANEOUS) C Soft Tissue/Surgical Margin-Other than Tumor,Mass,Lip or Amanda (RT HEEL WOUND) Procedures: HE/3, Gross/Micro L4, Gross/Micro L3/2, Decalcification Age/ Patient Sex Location Account Attending Physician Gagandeep Ahn 73/M [facility] [id number] Hubert Strickland DPM, MS SPEC NUM: [id number] RECD: 11/18/23 STATUS: SHAHRZAD BRYANT NUM: [id number] ALISTAIR: 11/18/[address]: Hubert Strickland,YING, MS ENTERED: 11/18/[address] [facility] [address]: Melanie,Frances SPEC TYPE: Surgical DEPT: KORY HARRINGTON ORDERED: [...] Information Chronic osteomyelitis right foot -------- Specimen: [id number] Received: 11/18/23-1321 Status: SHAHRZAD Bryant Num: [id number] Spec Type: Surgical Subm Dr: Hubert Strickland,DPM, MS Tissues: A Tendon/Sheath (ACHILLES TENDON) B Bone Fragments - Other than Path Fracture (RT CALCANEOUS) C Soft Tissue/Surgical Margin-Other than Tumor,Mass,Lip or Amanda (RT HEEL WOUND) Procedures: HE/3, Gross/Micro L4, Gross/Micro L3/2, Decalcification -------- Patient: Gagandeep Ahn [id number] (Continued) -------- Specimen: [id number] Received: 11/18/23-1321 (Continued) Signed (signature on file) Tc Yadav MD 11/22/23 1929 -------- Specimen: [id number] Received: 11/18/23 Status: SHAHRZAD Bryant Num: [id number] Spec Type: Surgical Subm Dr: Hubert Strickland,DPM, MS Tissues: A Tendon/Sheath (ACHILLES TENDON) B Bone Fragments - Other than Path Fracture (RT CALCANEOUS) C Soft Tissue/Surgical Margin-Other than Tumor,Mass,Lip or Amanda (RT HEEL WOUND) Procedures: HE/3, Gross/Micro L4, Gross/Micro L3/2, Decalcification -------- Patient: Gagandeep Ahn [id number] (Continued) -------- Specimen: [id number] Received: 11/18/23 (Continued) Gross Description Received are [...] 0.7 cm. Cut sections demonstrate unremarkable surfaces. Clinical Rn sections following decalcification are submitted in B1. C. Further labeled right heel wound are 2 fragments of melendez ulcerated skin measuring in aggregate 2.6 x 2.5 x 0.8 cm. Cut sections reveal slightly softened bony surfaces. The remaining cut surfaces are comprised of melendez-yellow tissue. Clinical Rn sections following decalcification are submitted in C1. TW CPT Codes 38909 X.3 60151 X2 -------- -------- Specimen: [id number] Received: 11/18/23 Status: SHAHRZAD Bryant Num: [id number] Spec Type: Surgical Subm Dr: Hubert Strickland,DPM, MS Tissues: A Tendon/Sheath (ACHILLES TENDON) B Bone Fragments - Other than Path Fracture (RT CALCANEOUS) C Soft Tissue/Surgical Margin-Other than Tumor,Mass,Lip or Amanda (RT HEEL WOUND) Procedures: HE/3, Gross/Micro L4, Gross/Micro L3/2, Decalcification (more content not included)... Normal [facility] Office Visiton 11-17-2023 Follow-up visit [id number] Gagandeep Ahn [address] [facility] Provider Department [place] 11/17/2023 120-LENI MERIDA CARD [facility] No family history on file Level of Service:41512 HI OFFICE/OUTPATIENT NEW MODERATE MDM 45 MINUTES Reason for Visit and Comments: New Patient [632] - Cardiac clearance [facility] Orders Onlyon 11-17-2023 Orders Only [id number] Gagandeep Ahn [address] [facility] Provider Department Center 11/17/2023 [id number], HISTORICAL CARD [facility] No family history on file Normal [facility] Orders Onlyon 11-16-2023 Orders Only [id number] Gagandeep Ahn 1950 M Date Provider Department Center 11/16/2023 [id number], HISTORICAL CARD [facility] No family history on file Normal [facility] URINE CULTUREon 11-07-2023 Bacteria identified Cx Nom [...] RESISTANCE/MDRO MULTI DRUG RESISTANT ORGANISM F Normal [facility] Comment on above: Performed By: #### C BCA, PINR, 10257-6, BMP, 3040-3, 29356-7, 5643-2, LIVR, 10775-1, 48539-1, THYR, 31251-1, 65808-6 #### [facility] ([id number]) [address] [place] [address] 18348 URN MACROSCOPIC NURon 2023 BILIRUBIN TORRES Negative Normal NEG [facility] Comment on above: Performed By: #### C BCA, PINR, 78365-5, BMP, 3040-3, 42467-4, 5643-2, LIVR, 96783-4, 07210-1, THYR, 21177-7, 57854-1 #### [facility] ([id number]) [address] [place] [address] [place] [address] BLOOD/HGB TORRES Trace Abnormal NEG [facility] Comment on above: Performed By: #### C BCA, PINR, 34589-9, BMP, 3040-3, 19994-8, 5643-2, LIVR, 89936-5, 60718-5, THYR, 05525-1, 42692-4 #### [facility] ([id number]) [address] [place] [address] [place] [address] GLUCOSE TORRES Negative Normal NEG [facility] Comment on above: Performed By: #### C BCA, PINR, 28924-7, BMP, 3040-3, 48675-6, 5643-2, LIVR, 44875-1, 20237-1, THYR, 60574-7, 27577-0 #### [facility] ([id number]) [address] [place] [address] [place] [address] KETONES TORRES Negative Normal NEG [facility] Comment on above: Performed By: #### C BCA, PINR, 72173-3, BMP, 3040-3, 56109-2, 5643-2, LIVR, 90697-6, 20959-9, THYR, 47226-1, 12217-7 #### [facility] ([id number]) [address] [place] [address] [place] [address] LEUKOCYTE ESTERASE TORRES Small Abnormal NEG Pr [facility] Comment on above: Performed By: #### C BCA, PINR, 31648-9, BMP, 3040-3, 25099-9, 5643-2, LIVR, 11042-2, 81330-9, THYR, 41963-1, 35307-7 #### [facility] ([id number]) [address] [place] [address] [place] [address] NITRITE TORRES Positive Abnormal NEG [facility] Comment on above: Performed By: #### C BCA, PINR, 38996-2, BMP, 3040-3, 99671-7, 5643-2, LIVR, 87468-3, 23237-6, THYR, 31001-5, 25784-1 #### [facility] ([id number]) [address] [place] [address] 96516 PH TORRES 5.5 Normal 5.0-8.5 [facility] Comment on above: Performed By: #### C BCA, PINR, 94093-8, BMP, 3040-3, 90673-7, 5643-2, LIVR, 48511-2, 00294-6, THYR, 06852-2, 96275-6 #### [facility] ([id number]) [address] [place] [address] 479[address] PROTEIN TORRES Trace Abnormal NEG [facility] Comment on above: Performed By: #### C BCA, PINR, 23271-4, BMP, 3040-3, 11403-5, 5643-2, LIVR, 67200-8, 93991-9, THYR, 27668-6, 20812-9 #### [facility] ([id number]) [address] [place] [address] 14550 SPECIFIC GRAVITY TORRES 1.025 Normal 1.003-1.035 [facility] Comment on above: Performed By: #### C BCA, PINR, 16160-8, BMP, 3040-3, 10612-1, 5643-2, LIVR, 50420-1, 37685-9, THYR, 50865-8, 11278-5 #### [facility] ([id number]) [address] [place] [address] 55347 UROBILINOGEN TORRES 0.2 eu/dL Normal <1.1 [facility] Comment on above: Performed By: #### C BCA, PINR, 99714-1, BMP, 3040-3, 88390-0, 5643-2, LIVR, 31071-1, 02880-4, THYR, 14513-5, 50273-4 #### [facility] ([id number]) [address] [place] [address] 22068 BASIC METABOLIC PANLon 11-03 Anion gap [Moles/Vol] 14 mmol/L Normal 5-15 [facility] Comment on above: Performed By: #### C BCA, PINR, 09447-1, BMP, 3040-3, 53682-4, 5643-2, LIVR, 38579-1, 58787-1, THYR, 24242-9, 10465-3 #### [facility] ([id number]) [address] [place] [address] [place] [address] Calcium [Mass/Vol] 9.6 mg/dL Normal 8.5-10.5 [facility] Comment on above: Performed By: #### C BCA, PINR, 28285-8, BMP, 3040-3, 45409-6, 5643-2, LIVR, 68332-5, 64787-6, THYR, 95396-4, 14372-4 #### [facility] ([id number]) [address] [place] [address] [place] [address] Chloride [Moles/Vol] 102 mmol/L Normal 98-109 [facility] Comment on above: Performed By: #### C BCA, PINR, 39168-8, BMP, 3040-3, 20280-8, 5643-2, LIVR, 37103-0, 30271-1, THYR, 41867-8, 58647-7 #### [facility] ([id number]) [address] [place] [address] [place] [address] CO2 [Moles/Vol] 21 mmol/L Low 22-32 [facility] Comment on above: Performed By: #### C BCA, PINR, 87372-4, BMP, 3040-3, 72662-8, 5643-2, LIVR, 80422-5, 24769-0, THYR, 59218-5, 15084-0 #### [facility] ([id number]) [address] [place] [address] [place] [address] Creatinine [Mass/Vol] 0.94 mg/dL Normal 0.70-1.20 [facility] Comment on above: Result Comment: METH OD TRACEABLE TO IDMS STANDARD Performed By: #### C BCA, PINR, 32122-1, BMP, 3040-3, 13091-0, 5643-2, LIVR, 23642-4, 37416-8, THYR, 09825-9, 20535-4 #### [facility] ([id number]) [address] [place] [address] 69073 GFR/1.73 sq M.predicted among non-blacks MDRD (S/P/Bld) [Vol rate/Area] 85 mL/min/{1.73_m2} Normal >59 [facility] Comment on above: Result Comment: Reported eGFR is based on the CKD-EPI 2020 equation that does not use a race coefficient. Performed By: #### C BCA, PINR, 03483-3, BMP, 3040-3, 99954-7, 5643-2, LIVR, 41871-6, 78106-6, THYR, 82456-5, 97632-9 #### [facility] ([id number]) [address] [place] [address] 53799 Glucose [Mass/Vol] 114 mg/dL High 65-99 [facility] Comment on above: Performed By: #### C BCA, PINR, 89429-6, BMP, 3040-3, 40126-0, 5643-2, LIVR, 87094-6, 63431-2, THYR, 22572-6, 36451-6 #### [facility] ([id number]) [address] [place] [address] 27768 Potassium [Moles/Vol] 3.5 mmol/L Normal 3.5-5.0 [facility] Comment on above: Performed By: #### C BCA, PINR, 14094-2, BMP, 3040-3, 61775-7, 5643-2, LIVR, 61534-6, 12968-9, THYR, 39541-2, 83934-3 #### [facility] ([id number]) [address] [place] [address] 46595 Sodium [Moles/Vol] 137 mmol/L Normal 134-146 [facility] Comment on above: Performed By: #### C BCA, PINR, 15989-2, BMP, 3040-3, 11058-8, 5643-2, LIVR, 23298-0, 39721-1, THYR, 62803-8, 62859-3 #### [facility] ([id number]) [address] [place] [address] 57243 Urea nitrogen [Mass/Vol] 17 mg/dL Normal 5-27 [facility] Comment on above: Performed By: #### C BCA, PINR, 24209-3, BMP, 3040-3, 17886-2, 5643-2, LIVR, 59574-0, 58340-3, THYR, 22439-8, 21440-9 #### [facility] ([id number]) [address] [place] [address] 47374 CBC AND AUTO DIFFon 11-04-19 24 ABSOLUTE BASOPHIL 0.1 X10E9/L Normal 0.0-0.2 [facility] Comment on above: Performed By: #### C BCA, PINR, 04653-7, BMP, 3040-3, 16134-1, 5643-2, LIVR, 48751-4, 44492-9, THYR, 35814-2, 21893-1 #### [facility] ([id number]) [address] [place] [address] 60711 ABSOLUTE NEUTROPHIL 5.5 X10E9/L Normal 1.5-6.6 [facility] Comment on above: Performed By: #### C BCA, PINR, 57145-4, BMP, 3040-3, 43894-2, 5643-2, LIVR, 82214-6, 22852-8, THYR, 39041-5, 58681-0 #### [facility] ([id number]) [address] [place] [address] 76494 Basophils/100 WBC (Bld) 1.0 % Normal [facility] Comment on above: Performed By: #### C BCA, PINR, 22922-5, BMP, 3040-3, 83653-7, 5643-2, LIVR, 54467-7, 69171-7, THYR, 07991-9, 14226-4 #### [facility] ([id number]) [address] [place] [address] 85844 Eosinophils (Bld) [#/Vol] 0.4 10*3/uL Normal 0.0-0.4 [facility] Comment on above: Performed By: #### C BCA, PINR, 45281-1, BMP, 3040-3, 71278-6, 5643-2, LIVR, 51265-0, 30475-7, THYR, 68535-8, 08183-5 #### [facility] ([id number]) [address] [place] [address] 85086 Eosinophils/100 WBC (Bld) 4.2 % Normal [facility] Comment on above: Performed By: #### C BCA, PINR, 06049-5, BMP, 3040-3, 67041-4, 5643-2, LIVR, 31755-8, 94349-4, THYR, 93918-8, 60912-6 #### [facility] ([id number]) [address] [place] [address] [place] [address] Erythrocyte distribution width (RBC) [Ratio] 17.9 % High 11.5-15.0 [facility] Comment on above: Performed By: #### C BCA, PINR, 26065-2, BMP, 3040-3, 27516-3, 5643-2, LIVR, 60220-8, 51076-1, THYR, 24715-6, 07992-9 #### [facility] ([id number]) [address] [place] [address] 89356 Hematocrit (Bld) [Volume fraction] 36.0 % Low 39-49 [facility] Comment on above: Performed By: #### C BCA, PINR, 94074-9, BMP, 3040-3, 78371-3, 5643-2, LIVR, 39773-6, 70636-6, THYR, 49810-0, 02066-9 #### [facility] ([id number]) [address] [place] [address] 46671 Hemoglobin (Bld) [Mass/Vol] 12.4 g/dL Low 13.0-17.0 [facility] Comment on above: Performed By: #### C BCA, PINR, 18507-3, BMP, 3040-3, 69993-2, 5643-2, LIVR, 00345-2, 15119-9, THYR, 32048-6, 76398-2 #### [facility] ([id number]) [address] [place] [address] 97880 Lymphocytes (Bld) [#/Vol] 1.9 10*3/uL Normal 1.0-3.5 [facility] Comment on above: Performed By: #### C BCA, PINR, 54507-7, BMP, 3040-3, 03723-4, 5643-2, LIVR, 98383-8, 71225-7, THYR, 07128-3, 99116-1 #### [facility] ([id number]) [address] [place] [address] 71155 Lymphocytes/100 WBC (Bld) 22.2 % Normal [facility] Comment on above: Performed By: #### C BCA, PINR, 79501-9, BMP, 3040-3, 29896-8, 5643-2, LIVR, 73585-5, 21477-2, THYR, 40059-7, 66155-4 #### [facility] ([id number]) [address] [place] [address] 57803 MCH (RBC) [Entitic mass] 27.5 pg Normal 27-34 [facility] Comment on above: Performed By: #### C BCA, PINR, 95226-8, BMP, 3040-3, 06681-2, 5643-2, LIVR, 98960-4, 28875-2, THYR, 25812-3, 66678-0 #### [facility] ([id number]) [address] [place] [address] 47725 MCHC (RBC) [Mass/Vol] 34.6 g/dL Normal 32-36 [facility] Comment on above: Performed By: #### C BCA, PINR, 15939-3, BMP, 3040-3, 79195-2, 5643-2, LIVR, 04713-5, 98014-5, THYR, 90372-9, 89612-8 #### [facility] ([id number]) [address] [place] [address] 86153 MCV (RBC) [Entitic vol] 80 fL Normal 80-100 P [facility] Comment on above: Performed By: #### C BCA, PINR, 89261-9, BMP, 3040-3, 49125-4, 5643-2, LIVR, 65723-2, 78495-9, THYR, 74587-7, 57791-0 #### [facility] ([id number]) [address] [place] [address] 99089 Monocytes (Bld) [#/Vol] 0.6 10*3/uL Normal 0-0.9 [facility] Comment on above: Performed By: #### C BCA, PINR, 46468-5, BMP, 3040-3, 97762-7, 5643-2, LIVR, 46282-7, 35031-8, THYR, 87833-1, 56616-2 #### [facility] ([id number]) [address] [place] [address] 42509 Monocytes/100 WBC (Bld) 7.7 % Normal [facility] Comment on above: Performed By: #### C BCA, PINR, 95773-5, BMP, 3040-3, 74135-1, 5643-2, LIVR, 93442-1, 35740-1, THYR, 43898-1, 77585-2 #### [facility] ([id number]) [address] [place] [address] 16391 Neutrophils/100 WBC (Bld) 64.9 % Normal [facility] Comment on above: Performed By: #### C BCA, PINR, 48533-8, BMP, 3040-3, 97406-4, 5643-2, LIVR, 69357-8, 69806-5, THYR, 25082-1, 81230-6 #### [facility] ([id number]) [address] [place] [address] 34891 Platelet mean volume (Bld) [Entitic vol] 7.6 fL Normal 7-12 [facility] Comment on above: Performed By: #### C BCA, PINR, 75320-2, BMP, 3040-3, 10409-1, 5643-2, LIVR, 76514-7, 03459-7, THYR, 14588-6, 52835-6 #### [facility] ([id number]) [address] [place] [address] 67322 Platelets (Bld) [#/Vol] 324 10*3/uL Normal 150-450 [facility] Comment on above: Performed By: #### C BCA, PINR, 15667-9, BMP, 3040-3, 29299-5, 5643-2, LIVR, 96981-0, 01562-0, THYR, 42064-9, 32830-2 #### [facility] ([id number]) [address] [place] [address] RBC COUNT 4.53 X10E12/L Normal 4.10-5.70 [facility] Comment on above: Performed By: #### C BCA, PINR, 13416-4, BMP, 3040-3, 80000-1, 5643-2, LIVR, 45285-2, 24269-8, THYR, 91090-4, 39571-3 #### [facility] ([id number]) [address] [place] [address] 70275 WBC (Bld) [#/Vol] 8.4 10*3/uL Normal 4.0-11.0 [facility] Comment on above: Performed By: #### C BCA, PINR, 05491-6, BMP, 3040-3, 68772-8, 5643-2, LIVR, 54771-9, 78271-4, THYR, 70181-1, 37694-9 #### [facility] ([id number]) [address] [place] [address] ABDOMEN AND PELVIS WO CON Ton [...] Chris MD on 11/04/2023 3:05 PM Normal [facility] URINE CULTUREon 11-04-2023 Bacteria identified Cx Nom (U) CULTURE RESULTS MULTIPLE SPECIES PRESENT. PROBABLE COLLECTION CONTAMINATION. SUGGEST REPEAT SPECIMEN. Normal [facility] Comment on above: Performed By: #### C BCA, PINR, 01999-5, BMP, 3040-3, 48089-3, 5643-2, LIVR, 86973-0, 19249-7, THYR, 55568-9, 76174-3 #### [facility] ([id number]) [address] [place] [address] 22049 URN MACROSCOPIC NURon 2023 BILIRUBIN TORRES Negative Normal NEG [facility] Comment on above: Performed By: #### C BCA, PINR, 18311-0, BMP, 3040-3, 72318-7, 5643-2, LIVR, 19813-0, 43738-8, THYR, 82920-8, 57975-6 #### [facility] ([id number]) [address] [place] [address] 02903 BLOOD/HGB TORRES Large Abnormal NEG [facility] Comment on above: Performed By: #### C BCA, PINR, 12968-3, BMP, 3040-3, 28429-2, 5643-2, LIVR, 71760-0, 19748-9, THYR, 90184-3, 02531-6 #### [facility] ([id number]) [address] [place] [address] 66896 GLUCOSE TORRES Negative Normal NEG [facility] Comment on above: Performed By: #### C BCA, PINR, 16749-1, BMP, 3040-3, 19792-4, 5643-2, LIVR, 99563-9, 35003-6, THYR, 86942-1, 59070-3 #### [facility] ([id number]) [address] [place] [address]3618 KETONES TORRES Negative Normal NEG [facility] Comment on above: Performed By: #### C BCA, PINR, 60982-4, BMP, 3040-3, 55267-6, 5643-2, LIVR, 84736-4, 94500-9, THYR, 70291-0, 19790-6 #### [facility] ([id number]) [address] [place] [address]5544 LEUKOCYTE ESTERASE TORRES Small Abnormal NEG Pr [facility] Comment on above: Performed By: #### C BCA, PINR, 97714-3, BMP, 3040-3, 86193-9, 5643-2, LIVR, 77536-5, 75999-4, THYR, 05474-6, 72820-3 #### [facility] ([id number]) [address] [place] [address] [place] [address] NITRITE TORRES Negative Normal NEG [facility] Comment on above: Performed By: #### C BCA, PINR, 58875-2, BMP, 3040-3, 77475-4, 5643-2, LIVR, 37478-3, 76634-6, THYR, 34716-2, 14571-3 #### [facility] ([id number]) [address] [place] [address] PH TORRES 8.0 Normal 5.0-8.5 [facility] Comment on above: Performed By: #### C BCA, PINR, 02180-0, BMP, 3040-3, 63254-3, 5643-2, LIVR, 58425-8, 88631-0, THYR, 79513-9, 62571-3 #### [facility] ([id number]) [address] [place] [address] 67892 PROTEIN TORRES 100 mg/dL Abnormal NEG [facility] Comment on above: Performed By: #### C BCA, PINR, 60269-5, BMP, 3040-3, 02192-7, 5643-2, LIVR, 26773-4, 12423-5, THYR, 89047-5, 00784-0 #### [facility] ([id number]) [address] [place] [address] SPECIFIC GRAVITY TORRES 1.015 Normal 1.003-1.035 [facility] Comment on above: Performed By: #### C BCA, PINR, 25844-9, BMP, 3040-3, 04556-2, 5643-2, LIVR, 82396-5, 99087-1, THYR, 15541-9, 50901-3 #### [facility] ([id number]) [address] [place] [address] 20006 UROBILINOGEN TORRES 0.2 eu/dL Normal <1.1 [facility] Comment on above: Performed By: #### C BCA, PINR, 28416-0, BMP, 3040-3, 44645-0, 5643-2, LIVR, 92697-5, 43738-6, THYR, 63313-3, 81654-9 #### [facility] ([id number]) [address] [place] [address]997 CBC AND AUTO DIFFon 10-29-19 24 ABSOLUTE BASOPHIL 0.0 X10E9/L Normal 0.0-0.2 [facility] Comment on above: Performed By: #### C BCA, PINR, 19224-6, BMP, 3040-3, 93155-4, 5643-2, LIVR, 59793-6, 12507-0, THYR, 18802-3, 32817-3 #### [facility] ([id number]) [address] [place] [address] [place] [address] ABSOLUTE NEUTROPHIL 7.4 X10E9/L High 1.5-6.6 [facility] Comment on above: Performed By: #### C BCA, PINR, 09917-1, BMP, 3040-3, 12121-1, 5643-2, LIVR, 23164-9, 28662-5, THYR, 07368-7, 39749-6 #### [facility] ([id number]) [address] [place] [address] 77500 Basophils/100 WBC (Bld) 0.3 % Normal [facility] Comment on above: Performed By: #### C BCA, PINR, 33110-5, BMP, 3040-3, 92675-3, 5643-2, LIVR, 85015-3, 94959-4, THYR, 83286-9, 11716-9 #### [facility] ([id number]) [address] [place] [address] [place] [address] Eosinophils (Bld) [#/Vol] 0.3 10*3/uL Normal 0.0-0.4 [facility] Comment on above: Performed By: #### C BCA, PINR, 75326-4, BMP, 3040-3, 03926-6, 5643-2, LIVR, 73677-4, 92248-5, THYR, 52968-8, 66388-5 #### [facility] ([id number]) [address] [place] [address] [place] [address] Eosinophils/100 WBC (Bld) 3.1 % Normal [facility] Comment on above: Performed By: #### C BCA, PINR, 92273-9, BMP, 3040-3, 03883-5, 5643-2, LIVR, 15999-8, 76653-0, THYR, 54192-6, 40638-2 #### [facility] ([id number]) [address] [place] [address] 20211 Erythrocyte distribution width (RBC) [Ratio] 18.1 % High 11.5-15.0 [facility] Comment on above: Performed By: #### C BCA, PINR, 30353-4, BMP, 3040-3, 76697-6, 5643-2, LIVR, 39015-0, 36956-5, THYR, 99717-7, 56600-1 #### [facility] ([id number]) [address] [place] [address] 80578 Hematocrit (Bld) [Volume fraction] 35.0 % Low 39-49 [facility] Comment on above: Performed By: #### C BCA, PINR, 40420-0, BMP, 3040-3, 31511-1, 5643-2, LIVR, 75328-0, 65239-2, THYR, 97670-0, 33436-6 #### [facility] ([id number]) [address] [place] [address] 12978 Hemoglobin (Bld) [Mass/Vol] 11.9 g/dL Low 13.0-17.0 [facility] Comment on above: Performed By: #### C BCA, PINR, 59280-3, BMP, 3040-3, 72431-2, 5643-2, LIVR, 79592-6, 07698-4, THYR, 02096-7, 62361-2 #### [facility] ([id number]) [address] [place] [address] 11697 Lymphocytes (Bld) [#/Vol] 1.3 10*3/uL Normal 1.0-3.5 [facility] Comment on above: Performed By: #### C BCA, PINR, 12242-1, BMP, 3040-3, 48523-1, 5643-2, LIVR, 09547-8, 86772-7, THYR, 39274-9, 79498-3 #### [facility] ([id number]) [address] [place] [address] 77736 Lymphocytes/100 WBC (Bld) 13.1 % Normal [facility] Comment on above: Performed By: #### C BCA, PINR, 67005-8, BMP, 3040-3, 27248-9, 5643-2, LIVR, 00362-6, 10023-1, THYR, 65333-9, 61204-8 #### [facility] ([id number]) [address] [place] [address] 49438 MCH (RBC) [Entitic mass] 27.2 pg Normal 27-34 [facility] Comment on above: Performed By: #### C BCA, PINR, 27188-9, BMP, 3040-3, 15160-1, 5643-2, LIVR, 96374-3, 84790-5, THYR, 57475-0, 12455-7 #### [facility] ([id number]) [address] [place] [address] [place] [address] MCHC (RBC) [Mass/Vol] 34.0 g/dL Normal 32-36 [facility] Comment on above: Performed By: #### C BCA, PINR, 69966-5, BMP, 3040-3, 85329-8, 5643-2, LIVR, 80925-7, 20146-7, THYR, 60808-7, 05061-5 #### [facility] ([id number]) [address] [place] [address] 38425 MCV (RBC) [Entitic vol] 80 fL Normal 80-100 P [facility] Comment on above: Performed By: #### C BCA, PINR, 14279-2, BMP, 3040-3, 97979-1, 5643-2, LIVR, 26798-8, 87638-5, THYR, 75567-2, 98294-2 #### [facility] ([id number]) [address] [place] [address] 56061 Monocytes (Bld) [#/Vol] 0.6 10*3/uL Normal 0-0.9 [facility] Comment on above: Performed By: #### C BCA, PINR, 52535-5, BMP, 3040-3, 06667-9, 5643-2, LIVR, 27457-4, 62756-9, THYR, 65323-9, 48896-3 #### [facility] ([id number]) [address] [place] [address] 49106 Monocytes/100 WBC (Bld) 6.3 % Normal [facility] Comment on above: Performed By: #### C BCA, PINR, 35822-1, BMP, 3040-3, 03061-8, 5643-2, LIVR, 37724-0, 96053-8, THYR, 58743-7, 25787-7 #### [facility] ([id number]) [address] [place] [address] 95197 Neutrophils/100 WBC (Bld) 77.2 % Normal [facility] Comment on above: Performed By: #### C BCA, PINR, 43059-7, BMP, 3040-3, 21534-2, 5643-2, LIVR, 15425-9, 20283-5, THYR, 33250-0, 43824-4 #### [facility] ([id number]) [address] [place] [address] [place] [address] Platelet mean volume (Bld) [Entitic vol] 7.4 fL Normal 7-12 [facility] Comment on above: Performed By: #### C BCA, PINR, 59828-6, BMP, 3040-3, 31147-2, 5643-2, LIVR, 95458-0, 11567-1, THYR, 73375-7, 81862-7 #### [facility] ([id number]) [address] [place] [address] 31026 Platelets (Bld) [#/Vol] 319 10*3/uL Normal 150-450 [facility] Comment on above: Performed By: #### C BCA, PINR, 86359-8, BMP, 3040-3, 69585-4, 5643-2, LIVR, 13867-4, 20917-2, THYR, 91854-4, 19035-7 #### [facility] ([id number]) [address] [place] [address] 40686 RBC COUNT 4.38 X10E12/L Normal 4.10-5.70 [facility] Comment on above: Performed By: #### C BCA, PINR, 14518-3, BMP, 3040-3, 80951-9, 5643-2, LIVR, 61068-7, 75327-5, THYR, 41153-3, 61349-8 #### [facility] ([id number]) [address] [place] [address] [place] [address] WBC (Bld) [#/Vol] 9.6 10*3/uL Normal 4.0-11.0 [facility] Comment on above: Performed By: #### C BCA, PINR, 76636-0, BMP, 3040-3, 85844-6, 5643-2, LIVR, 40648-5, 92277-9, THYR, 65700-6, 53989-8 #### [facility] ([id number]) [address] [place] [address] 87350 COMPREHENSIVE METABOLIC PANE Nilson 10-29-2023 Albumin [Mass/Vol] 3.8 g/dL Normal 3.2-5.3 [facility] Comment on above: Performed By: #### C BCA, PINR, 67845-4, BMP, 3040-3, 60567-1, 5643-2, LIVR, 43414-2, 06717-8, THYR, 62057-7, 65978-2 #### [facility] ([id number]) [address] [place] [address] [place] [address] ALP [Catalytic activity/Vol] 57 U/L Normal 39-130 [facility] Comment on above: Performed By: #### C BCA, PINR, 79372-2, BMP, 3040-3, 33795-0, 5643-2, LIVR, 26610-0, 86528-1, THYR, 76325-4, 88976-0 #### [facility] ([id number]) [address] [place] [address] [place] [address] ALT [Catalytic activity/Vol] 30 U/L Normal 0-40 [facility] Comment on above: Performed By: #### C BCA, PINR, 58576-7, BMP, 3040-3, 58304-6, 5643-2, LIVR, 98980-1, 86818-4, THYR, 95431-6, 86640-6 #### [facility] ([id number]) [address] [place] [address] [place] [address] Anion gap [Moles/Vol] 13 mmol/L Normal 5-15 [facility] Comment on above: Performed By: #### C BCA, PINR, 53914-5, BMP, 3040-3, 11599-7, 5643-2, LIVR, 60205-8, 90995-1, THYR, 27019-8, 39625-5 #### [facility] ([id number]) [address] [place] [address] [place] [address] AST [Catalytic activity/Vol] 22 U/L Normal 0-41 [facility] Comment on above: Performed By: #### C BCA, PINR, 12915-3, BMP, 3040-3, 86166-0, 5643-2, LIVR, 19791-3, 72933-1, THYR, 05429-9, 21506-5 #### [facility] ([id number]) [address] [place] [address] [place] [address] Bilirubin [Mass/Vol] 0.8 mg/dL Normal 0.3-1.2 [facility] Comment on above: Performed By: #### C BCA, PINR, 61261-1, BMP, 3040-3, 67241-4, 5643-2, LIVR, 52471-5, 16672-7, THYR, 53707-6, 04902-2 #### [facility] ([id number]) [address] [place] [address] 00289 Calcium [Mass/Vol] 9.5 mg/dL Normal 8.5-10.5 [facility] Comment on above: Performed By: #### C BCA, PINR, 96669-1, BMP, 3040-3, 12677-4, 5643-2, LIVR, 63933-2, 55968-5, THYR, 20219-4, 96215-2 #### [facility] ([id number]) [address] [place] [address] [place] [address] Chloride [Moles/Vol] 102 mmol/L Normal 98-109 [facility] Comment on above: Performed By: #### C BCA, PINR, 44200-5, BMP, 3040-3, 64986-4, 5643-2, LIVR, 93878-6, 30690-0, THYR, 73110-2, 74157-8 #### [facility] ([id number]) [address] [place] [address] [place] [address] CO2 [Moles/Vol] 21 mmol/L Low 22-32 [facility] Comment on above: Performed By: #### C BCA, PINR, 26059-0, BMP, 3040-3, 70310-6, 5643-2, LIVR, 81789-1, 00756-8, THYR, 86486-0, 06508-2 #### [facility] ([id number]) [address] [place] [address] 63591 Creatinine [Mass/Vol] 1.14 mg/dL Normal 0.70-1.20 [facility] Comment on above: Result Comment: METH OD TRACEABLE TO IDMS STANDARD Performed By: #### C BCA, PINR, 02133-8, BMP, 3040-3, 89817-2, 5643-2, LIVR, 30383-4, 13195-1, THYR, 99190-1, 43841-4 #### [facility] ([id number]) [address] [place] [address] 87514 GFR/1.73 sq M.predicted among non-blacks MDRD (S/P/Bld) [Vol rate/Area] 67 mL/min/{1.73_m2} Normal >59 [facility] Comment on above: Result Comment: Reported eGFR is based on the CKD-EPI 2020 equation that does not use a race coefficient. Performed By: #### C BCA, PINR, 74727-1, BMP, 3040-3, 93484-2, 5643-2, LIVR, 16182-9, 93927-1, THYR, 69416-4, 82610-6 #### [facility] ([id number]) [address] [place] [address] 83839 Glucose [Mass/Vol] 172 mg/dL High 65-99 [facility] Comment on above: Performed By: #### C BCA, PINR, 86421-0, BMP, 3040-3, 37439-2, 5643-2, LIVR, 00787-7, 39919-1, THYR, 90229-2, 76173-0 #### [facility] ([id number]) [address] [place] [address] 68927 Potassium [Moles/Vol] 3.7 mmol/L Normal 3.5-5.0 [facility] Comment on above: Performed By: #### C BCA, PINR, 80325-1, BMP, 3040-3, 08932-4, 5643-2, LIVR, 43282-1, 71196-9, THYR, 93892-7, 64184-4 #### [facility] ([id number]) [address] [place] [address] 15942 Protein [Mass/Vol] 7.9 g/dL Normal 6.0-8.0 [facility] Comment on above: Performed By: #### C BCA, PINR, 84943-7, BMP, 3040-3, 17128-6, 5643-2, LIVR, 01371-5, 61309-0, THYR, 38941-0, 31557-1 #### [facility] ([id number]) [address] [place] [address] 82727 Sodium [Moles/Vol] 136 mmol/L Normal 134-146 [facility] Comment on above: Performed By: #### C BCA, PINR, 98178-5, BMP, 3040-3, 26743-9, 5643-2, LIVR, 43771-5, 33274-9, THYR, 61099-8, 45351-9 #### [facility] ([id number]) [address] [place] [address] 17568 Urea nitrogen [Mass/Vol] 22 mg/dL Normal 5-27 [facility] Comment on above: Performed By: #### C BCA, PINR, 82386-3, BMP, 3040-3, 43734-4, 5643-2, LIVR, 44159-4, 62035-1, THYR, 44264-0, 94618-5 #### [facility] ([id number]) [address] [place] [address] [address] ABDOMEN AND PELVIS W CONT on [...] Ochoa MD on 10/29/2023 1:22 AM Normal [facility] LIPASEon 10-29-2023 Lipase [Catalytic activity/Vol] 55 U/L High 17-40 [facility] Comment on above: Performed By: #### C BCA, PINR, 26499-8, BMP, 3040-3, 37071-3, 5643-2, LIVR, 26077-7, 87432-3, THYR, 66602-7, 00779-4 #### [facility] ([id number]) [address] [place] [address] Lactate (P zane) [Moles/Vol]o n 10-29-2023 Lactate [Moles/Vol] 3.1 mmol/L High 0.4-2.0 [facility] Comment on above: Performed By: #### C BCA, PINR, 30883-5, BMP, 3040-3, 50258-3, 5643-2, LIVR, 07771-9, 87553-4, THYR, 42821-2, 99674-7 #### [facility] ([id number]) [address] [place] [address] 92604 LACTATE W/REFLEX 3.5 mmol/L High 0.4-2.0 [facility] Comment on above: Performed By: #### C BCA, PINR, 92734-0, BMP, 3040-3, 96947-0, 5643-2, LIVR, 38892-0, 31687-7, THYR, 07817-1, 75758-7 #### [facility] ([id number]) [address] [place] [address] 34317 XR ABDOMEN AP 1 VWon 024 XR [...] Ochoa MD on 10/28/2023 11:53 PM Normal [facility] US ankle/arm indiceson 10-12 US ankle/arm indices [facility] [address] [place], [place] [id number] Ultrasound Report Signed Patient: Gagandeep Ahn MR#: [id number] 32 : 1950 Acct:[id number] Age/Sex: 72 / M ADM Date: 10/07/23 Loc: [facility] Room: Type: [facility] Attending Dr: Steven Horta MD Ordering Provider: [...] Steven Horta MD10/13/2023 8:55 AM Dictation Location: [place] [address] Tech: Maribel Ruano Transcribed By: MARTHA 10/13/23854 Dictated By: Steven Horta MD 10/13/23853 Signed By: 10/13/23 08 Normal [facility] COMPREHENSIVE METABOLIC PANE [facility] 10-09-2023 Albumin [Mass/Vol] 3.2 g/dL Normal 3.2-5.3 [facility] Comment on above: Performed By: #### C BCA, PINR, 86675-3, BMP, 3040-3, 11828-1, 5643-2, LIVR, 27851-6, 94839-3, THYR, 64897-4, 85183-4 #### [facility] ([id number]) [address] [place] [address], [place] [address] ALP [Catalytic activity/Vol] 57 U/L Normal 39-130 [facility] Comment on above: Performed By: #### C BCA, PINR, 13066-2, BMP, 3040-3, 00152-9, 5643-2, LIVR, 38978-9, 80151-8, THYR, 38124-7, 51983-3 #### [facility] ([id number]) [address] [place] [address] [place] [address] ALT [Catalytic activity/Vol] 13 U/L Normal 0-40 [facility] Comment on above: Performed By: #### C BCA, PINR, 61402-0, BMP, 3040-3, 29534-3, 5643-2, LIVR, 81556-2, 57572-9, THYR, 28357-8, 33794-7 #### [facility] ([id number]) [address] [place] [address] [place] [address] Anion gap [Moles/Vol] 11 mmol/L Normal 5-15 [facility] Comment on above: Performed By: #### C BCA, PINR, 82663-1, BMP, 3040-3, 77092-2, 5643-2, LIVR, 20929-2, 25453-6, THYR, 94034-6, 86550-8 #### [facility] ([id number]) [address] [place] [address] [place] [address] AST [Catalytic activity/Vol] 16 U/L Normal 0-41 [facility] Comment on above: Performed By: #### C BCA, PINR, 25759-4, BMP, 3040-3, 63222-1, 5643-2, LIVR, 79695-0, 63795-8, THYR, 40803-7, 90990-4 #### [facility] ([id number]) [address] [place] [address], [place] [address] Bilirubin [Mass/Vol] 0.9 mg/dL Normal 0.3-1.2 [facility] Comment on above: Performed By: #### C BCA, PINR, 73422-5, BMP, 3040-3, 65067-0, 5643-2, LIVR, 28421-2, 95856-8, THYR, 78239-4, 69398-1 #### [facility] ([id number]) [address] [place] [address] 30450 Calcium [Mass/Vol] 8.3 mg/dL Low 8.5-10.5 [facility] Comment on above: Performed By: #### C BCA, PINR, 31074-6, BMP, 3040-3, 39474-1, 5643-2, LIVR, 28185-4, 32002-1, THYR, 91018-8, 28864-3 #### [facility] ([id number]) [address] [place] [address] 49731 Chloride [Moles/Vol] 103 mmol/L Normal 98-109 [facility] Comment on above: Performed By: #### C BCA, PINR, 99219-1, BMP, 3040-3, 69431-4, 5643-2, LIVR, 69899-2, 34867-1, THYR, 33735-4, 80481-5 #### [facility] ([id number]) [address] [place] [address] [place] [address] CO2 [Moles/Vol] 21 mmol/L Low 22-32 [facility] Comment on above: Performed By: #### C BCA, PINR, 38115-6, BMP, 3040-3, 41117-8, 5643-2, LIVR, 10932-1, 46059-6, THYR, 80111-7, 05219-6 #### [facility] ([id number]) [address] [place] [address] [place] [address] Creatinine [Mass/Vol] 0.92 mg/dL Normal 0.70-1.20 [facility] Comment on above: Result Comment: METH OD TRACEABLE TO IDMS STANDARD Performed By: #### C BCA, PINR, 46164-6, BMP, 3040-3, 13421-1, 5643-2, LIVR, 52984-4, 50879-3, THYR, 15236-8, 25265-1 #### [facility] ([id number]) [address] [place] [address] 82138 GFR/1.73 sq M.predicted among non-blacks MDRD (S/P/Bld) [Vol rate/Area] 87 mL/min/{1.73_m2} Normal >59 [facility] Comment on above: Result Comment: Reported eGFR is based on the CKD-EPI 2020 equation that does not use a race coefficient. Performed By: #### C BCA, PINR, 02468-7, BMP, 3040-3, 00775-7, 5643-2, LIVR, 00281-6, 41283-7, THYR, 29524-0, 83374-3 #### [facility] ([id number]) [address] [place] [address] 65450 Glucose [Mass/Vol] 138 mg/dL High 65-99 [facility] Comment on above: Performed By: #### C BCA, PINR, 06178-9, BMP, 3040-3, 02295-9, 5643-2, LIVR, 51151-7, 53189-4, THYR, 04022-5, 07246-0 #### [facility] ([id number]) [address] [place] [address] 71407 Potassium [Moles/Vol] 3.1 mmol/L Low 3.5-5.0 [facility] Comment on above: Performed By: #### C BCA, PINR, 26389-5, BMP, 3040-3, 25024-1, 5643-2, LIVR, 62869-2, 57159-4, THYR, 93893-4, 52872-7 #### [facility] ([id number]) [address] [place] [address] 23045 Protein [Mass/Vol] 6.7 g/dL Normal 6.0-8.0 [facility] Comment on above: Performed By: #### C BCA, PINR, 55825-7, BMP, 3040-3, 68797-2, 5643-2, LIVR, 08518-8, 36263-1, THYR, 93796-5, 12101-4 #### [facility] ([id number]) [address] [place] [address] 88887 Sodium [Moles/Vol] 135 mmol/L Normal 134-146 [facility] Comment on above: Performed By: #### C BCA, PINR, 82740-3, BMP, 3040-3, 73727-8, 5643-2, LIVR, 95048-8, 79426-2, THYR, 29335-3, 09378-6 #### [facility] ([id number]) [address] [place] [address] 63352 Urea nitrogen [Mass/Vol] 28 mg/dL High 5-27 [facility] Comment on above: Performed By: #### C BCA, PINR, 69103-9, BMP, 3040-3, 16134-6, 5643-2, LIVR, 63430-6, 69108-3, THYR, 28254-7, 58388-4 #### [facility] ([id number]) [address] [place] [address] 29649 MAGNESIUMon 10-09-2023 Magnesium [Mass/Vol] 1.3 mg/dL Low 1.8-2.6 [facility] Comment on above: Performed By: #### C BCA, PINR, 22873-9, BMP, 3040-3, 14688-1, 5643-2, LIVR, 90125-2, 52823-7, THYR, 26806-9, 74890-6 #### [facility] ([id number]) [address] [place] [address] 98116 C REACTIVE PROTEINon 04-12-2 024 CRP [Mass/Vol] mg/L Normal 0.000-0.744 [facility] Comment on above: Performed By: #### C BCA, PINR, 79330-5, BMP, 3040-3, 58152-8, 5643-2, LIVR, 39292-5, 62544-6, THYR, 67063-5, 58635-7 #### [facility] ([id number]) [address] [place] [address] 04697 CBC AND AUTO DIFFon 10-08-19 24 ABSOLUTE BASOPHIL 0.0 X10E9/L Normal 0.0-0.2 [facility] Comment on above: Performed By: #### C BCA, PINR, 30062-3, BMP, 3040-3, 04467-7, 5643-2, LIVR, 63832-8, 60292-8, THYR, 66611-9, 47226-9 #### [facility] ([id number]) [address] [place] [address] 29795 ABSOLUTE NEUTROPHIL 8.4 X10E9/L High 1.5-6.6 [facility] Comment on above: Performed By: #### C BCA, PINR, 28550-0, BMP, 3040-3, 90186-6, 5643-2, LIVR, 10815-7, 37764-3, THYR, 68748-8, 18252-2 #### [facility] ([id number]) [address] [place] [address] [place] [address] Basophils/100 WBC (Bld) 0.4 % Normal [facility] Comment on above: Performed By: #### C BCA, PINR, 84533-5, BMP, 3040-3, 96362-3, 5643-2, LIVR, 40662-9, 46518-4, THYR, 78754-0, 98952-4 #### [facility] ([id number]) [address], [place] [address] Eosinophils (Bld) [#/Vol] 0.2 10*3/uL Normal 0.0-0.4 [facility] Comment on above: Performed By: #### C BCA, PINR, 36078-2, BMP, 3040-3, 22889-5, 5643-2, LIVR, 20690-3, 62390-9, THYR, 55377-0, 28644-6 #### [facility] ([id number]) [address] [place] [address] Eosinophils/100 WBC (Bld) 2.3 % Normal [facility] Comment on above: Performed By: #### C BCA, PINR, 69664-5, BMP, 3040-3, 05485-0, 5643-2, LIVR, 91723-4, 71566-7, THYR, 42242-9, 16486-2 #### [facility] ([id number]) [address] [place] [address] [place] [address] Erythrocyte distribution width (RBC) [Ratio] 17.0 % High 11.5-15.0 [facility] Comment on above: Performed By: #### C BCA, PINR, 73791-9, BMP, 3040-3, 16687-5, 5643-2, LIVR, 84564-7, 66609-8, THYR, 48645-4, 37238-9 #### [facility] ([id number]) [address] [place] [address] [place] [address] Hematocrit (Bld) [Volume fraction] 36.6 % Low 39-49 [facility] Comment on above: Performed By: #### C BCA, PINR, 36084-3, BMP, 3040-3, 37979-7, 5643-2, LIVR, 66635-6, 20276-5, THYR, 50790-2, 92344-3 #### [facility] ([id number]) [address] [place] [address] [place] [address] Hemoglobin (Bld) [Mass/Vol] 12.3 g/dL Low 13.0-17.0 [facility] Comment on above: Performed By: #### C BCA, PINR, 06810-9, BMP, 3040-3, 22436-6, 5643-2, LIVR, 90912-2, 79973-6, THYR, 94776-7, 16684-4 #### [facility] ([id number]) [address] [place] [address] Lymphocytes (Bld) [#/Vol] 1.2 10*3/uL Normal 1.0-3.5 [facility] Comment on above: Performed By: #### C BCA, PINR, 62585-4, BMP, 3040-3, 09863-5, 5643-2, LIVR, 33400-6, 57576-1, THYR, 66677-6, 40595-3 #### [facility] ([id number]) [address] [place] [address] Lymphocytes/100 WBC (Bld) 11.6 % Normal [facility] Comment on above: Performed By: #### C BCA, PINR, 33973-4, BMP, 3040-3, 12581-9, 5643-2, LIVR, 03983-8, 83383-0, THYR, 68918-9, 79680-0 #### [facility] ([id number]) [address] [place] [address] MCH (RBC) [Entitic mass] 26.9 pg Low 27-34 [facility] Comment on above: Performed By: #### C BCA, PINR, 29707-9, BMP, 3040-3, 89457-4, 5643-2, LIVR, 40941-9, 90601-9, THYR, 80622-8, 93416-9 #### [facility] ([id number]) [address] [place] [address] 14670 MCHC (RBC) [Mass/Vol] 33.7 g/dL Normal 32-36 [facility] Comment on above: Performed By: #### C BCA, PINR, 99505-7, BMP, 3040-3, 72419-0, 5643-2, LIVR, 68710-7, 95760-4, THYR, 57911-1, 52996-7 #### [facility] ([id number]) [address] [place] [address] 26622 MCV (RBC) [Entitic vol] 80 fL Normal 80-100 P [facility] Comment on above: Performed By: #### C BCA, PINR, 05154-0, BMP, 3040-3, 58400-1, 5643-2, LIVR, 58583-0, 12943-4, THYR, 50849-8, 06557-3 #### [facility] ([id number]) [address] [place] [address] 18704 Monocytes (Bld) [#/Vol] 0.7 10*3/uL Normal 0-0.9 [facility] Comment on above: Performed By: #### C BCA, PINR, 84223-4, BMP, 3040-3, 15440-6, 5643-2, LIVR, 10518-3, 21495-6, THYR, 93926-0, 33766-7 #### [facility] ([id number]) [address] [place] [address] 41184 Monocytes/100 WBC (Bld) 6.7 % Normal [facility] Comment on above: Performed By: #### C BCA, PINR, 53974-5, BMP, 3040-3, 81774-9, 5643-2, LIVR, 08291-0, 45280-9, THYR, 89716-1, 04912-3 #### [facility] ([id number]) [address] [place] [address] 20995 Neutrophils/100 WBC (Bld) 79.0 % Normal [facility] Comment on above: Performed By: #### C BCA, PINR, 27861-6, BMP, 3040-3, 40673-7, 5643-2, LIVR, 35122-4, 79603-4, THYR, 52137-0, 81548-4 #### [facility] ([id number]) [address] [place] [address] 40399 Platelet mean volume (Bld) [Entitic vol] 6.6 fL Low 7-12 [facility] Comment on above: Performed By: #### C BCA, PINR, 30056-9, BMP, 3040-3, 49146-3, 5643-2, LIVR, 75313-6, 40929-5, THYR, 55298-3, 60438-1 #### [facility] ([id number]) [address] [place] [address] 88821 Platelets (Bld) [#/Vol] 397 10*3/uL Normal 150-450 [facility] Comment on above: Performed By: #### C BCA, PINR, 41133-7, BMP, 3040-3, 14812-4, 5643-2, LIVR, 14328-8, 74476-6, THYR, 80451-0, 11829-1 #### [facility] ([id number]) [address] [place] [address] [place] [address] RBC COUNT 4.58 X10E12/L Normal 4.10-5.70 [facility] Comment on above: Performed By: #### C BCA, PINR, 69800-8, BMP, 3040-3, 86363-9, 5643-2, LIVR, 43403-1, 83973-3, THYR, 60985-4, 95735-7 #### [facility] ([id number]) [address] [place] [address] 39489 WBC (Bld) [#/Vol] 10.7 10*3/uL Normal 4.0-11.0 [facility] Comment on above: Performed By: #### C BCA, PINR, 68926-2, BMP, 3040-3, 06926-0, 5643-2, LIVR, 27936-8, 89100-4, THYR, 98610-2, 06393-4 #### [facility] ([id number]) [address] [place] [address] 68040 COMPREHENSIVE METABOLIC PANE Nilson 10-08-2023 Albumin [Mass/Vol] 3.7 g/dL Normal 3.2-5.3 [facility] Comment on above: Performed By: #### C BCA, PINR, 00009-9, BMP, 3040-3, 88224-7, 5643-2, LIVR, 05892-1, 36443-7, THYR, 29088-6, 90036-7 #### [facility] ([id number]) [address] [place] [address] 70206 ALP [Catalytic activity/Vol] 66 U/L Normal 39-130 [facility] Comment on above: Performed By: #### C BCA, PINR, 59344-4, BMP, 3040-3, 42798-4, 5643-2, LIVR, 90442-5, 16956-4, THYR, 68242-6, 85829-2 #### [facility] ([id number]) [address] [place] [address] 34918 ALT [Catalytic activity/Vol] 14 U/L Normal 0-40 [facility] Comment on above: Performed By: #### C BCA, PINR, 52269-0, BMP, 3040-3, 07225-9, 5643-2, LIVR, 87031-9, 08226-4, THYR, 06354-1, 46920-6 #### [facility] ([id number]) [address] [place] [address] 60206 Anion gap [Moles/Vol] 12 mmol/L Normal 5-15 [facility] Comment on above: Performed By: #### C BCA, PINR, 38101-9, BMP, 3040-3, 50170-2, 5643-2, LIVR, 05907-3, 20319-9, THYR, 34691-5, 03776-2 #### [facility] ([id number]) [address] [place] [address] [place] [address] AST [Catalytic activity/Vol] 17 U/L Normal 0-41 [facility] Comment on above: Performed By: #### C BCA, PINR, 77504-6, BMP, 3040-3, 61371-1, 5643-2, LIVR, 45011-6, 23782-4, THYR, 01831-7, 67786-1 #### [facility] ([id number]) [address] [place] [address] 45381 Bilirubin [Mass/Vol] 1.0 mg/dL Normal 0.3-1.2 [facility] Comment on above: Performed By: #### C BCA, PINR, 12696-1, BMP, 3040-3, 50763-4, 5643-2, LIVR, 83386-7, 54611-6, THYR, 95079-4, 45892-6 #### [facility] ([id number]) [address] [place] [address] [place] [address] Calcium [Mass/Vol] 9.2 mg/dL Normal 8.5-10.5 [facility] Comment on above: Performed By: #### C BCA, PINR, 81736-6, BMP, 3040-3, 01732-1, 5643-2, LIVR, 06476-0, 34948-8, THYR, 61958-1, 36804-9 #### [facility] ([id number]) [address] [place] [address] 65843 Chloride [Moles/Vol] 104 mmol/L Normal 98-109 [facility] Comment on above: Performed By: #### C BCA, PINR, 44466-8, BMP, 3040-3, 42254-9, 5643-2, LIVR, 44741-3, 42514-1, THYR, 78760-4, 60009-5 #### [facility] ([id number]) [address] [place] [address] 53589 CO2 [Moles/Vol] 20 mmol/L Low 22-32 [facility] Comment on above: Performed By: #### C BCA, PINR, 77403-7, BMP, 3040-3, 88261-9, 5643-2, LIVR, 85256-7, 15866-1, THYR, 91517-7, 09908-5 #### [facility] ([id number]) [address] [place] [address] 49236 Creatinine [Mass/Vol] 1.02 mg/dL Normal 0.70-1.20 [facility] Comment on above: Result Comment: METH OD TRACEABLE TO IDMS STANDARD Performed By: #### C BCA, PINR, 22780-4, BMP, 3040-3, 51879-9, 5643-2, LIVR, 24677-8, 89908-0, THYR, 81514-1, 18283-7 #### [facility] ([id number]) [address] [place] [address] 54941 GFR/1.73 sq M.predicted among non-blacks MDRD (S/P/Bld) [Vol rate/Area] 77 mL/min/{1.73_m2} Normal >59 [facility] Comment on above: Result Comment: Reported eGFR is based on the CKD-EPI 2020 equation that does not use a race coefficient. Performed By: #### C BCA, PINR, 85550-1, BMP, 3040-3, 57873-6, 5643-2, LIVR, 08118-6, 29998-8, THYR, 11990-1, 85578-1 #### [facility] ([id number]) [address] [place] [address] 47912 Glucose [Mass/Vol] 121 mg/dL High 65-99 [facility] Comment on above: Performed By: #### C BCA, PINR, 53304-8, BMP, 3040-3, 08169-8, 5643-2, LIVR, 00513-6, 70448-3, THYR, 63696-8, 83063-4 #### [facility] ([id number]) [address] [place] [address] 37024 Potassium [Moles/Vol] 3.5 mmol/L Normal 3.5-5.0 [facility] Comment on above: Performed By: #### C BCA, PINR, 22407-3, BMP, 3040-3, 06371-7, 5643-2, LIVR, 96161-6, 78508-7, THYR, 00051-3, 80945-7 #### [facility] ([id number]) [address] [place] [address] 74975 Protein [Mass/Vol] 7.8 g/dL Normal 6.0-8.0 [facility] Comment on above: Performed By: #### C BCA, PINR, 06459-4, BMP, 3040-3, 18083-3, 5643-2, LIVR, 48503-6, 56588-9, THYR, 77169-0, 59661-3 #### [facility] ([id number]) [address] [place] [address] 62196 Sodium [Moles/Vol] 136 mmol/L Normal 134-146 [facility] Comment on above: Performed By: #### C BCA, PINR, 65625-1, BMP, 3040-3, 57734-1, 5643-2, LIVR, 83720-4, 07484-0, THYR, 62890-7, 87928-9 #### [facility] ([id number]) [address] [place] [address] Urea nitrogen [Mass/Vol] 36 mg/dL High 5-27 [facility] Comment on above: Performed By: #### C BCA, PINR, 11043-6, BMP, 3040-3, 68867-4, 5643-2, LIVR, 21188-4, 74842-0, THYR, 57274-0, 15668-5 #### [facility] ([id number]) [address] [place] [address] MAGNESIUMon 10-08-2023 Magnesium [Mass/Vol] 1.6 mg/dL Low 1.8-2.6 [facility] Comment on above: Performed By: #### C BCA, PINR, 58722-8, BMP, 3040-3, 72958-9, 5643-2, LIVR, 45369-0, 15098-8, THYR, 57914-2, 57913-9 #### [facility] ([id number]) [address] [place] [address] 15955 SARS/FLU A+B/RSV by NAAT/Mol ecularon 10-08-2023 SARS/FLU [...] operators who are performing tests using either [employer] or [employer] systems and is limited to laboratories that [...] repeat. Fact Sheet for Healthcare Providers: https://www.fda.gov/m edia/161990/download Fact Sheet for Patients: https://www.fda.gov/m edia/007105/download Normal [facility] Comment on above: Performed By: #### C BCA, PINR, 54404-5, BMP, 3040-3, 36236-9, 5643-2, LIVR, 06517-1, 83910-9, THYR, 79595-9, 61059-3 #### [facility] ([id number]) [address] [place] [address], [place] [address] URINE CULTUREon 10-08-2023 Bacteria identified Cx Nom [...] TOBRAMYCIN S <=1 F TRIMETH/SULFAMETHOXAZ OLE S <=/19 F Susceptible [facility] Comment on above: Performed By: #### C BCA, PINR, 24576-8, BMP, 3040-3, 14757-5, 5643-2, LIVR, 47611-6, 37764-8, THYR, 27913-6, 51119-9 #### [facility] ([id number]) [address] [place] [address] [place] [address] URN MACROSCOPIC NURon 2023 BILIRUBIN TORRES Negative Normal NEG [facility] Comment on above: Performed By: #### C BCA, PINR, 98897-9, BMP, 3040-3, 76198-1, 5643-2, LIVR, 68517-4, 13101-7, THYR, 82036-3, 70003-1 #### [facility] ([id number]) [address] [place] [address], [place] [address] BLOOD/HGB TORRES Large Abnormal NEG [facility] Comment on above: Performed By: #### C BCA, PINR, 79945-5, BMP, 3040-3, 55069-2, 5643-2, LIVR, 49599-2, 64486-4, THYR, 64545-8, 06316-6 #### [facility] ([id number]) [address] [place] [address] [place] [address] GLUCOSE TORRES Negative Normal NEG [facility] Comment on above: Performed By: #### C BCA, PINR, 88974-0, BMP, 3040-3, 63997-7, 5643-2, LIVR, 23018-0, 04439-4, THYR, 50054-1, 01590-7 #### [facility] ([id number]) [address] [place] [address] [place] [address] KETONES TORRES 15 mg/dL Abnormal NEG [facility] Comment on above: Performed By: #### C BCA, PINR, 37501-6, BMP, 3040-3, 98664-2, 5643-2, LIVR, 30041-6, 34403-6, THYR, 58486-2, 07135-0 #### [facility] ([id number]) [address] [place] [address] [place] [address] LEUKOCYTE ESTERASE TORRES Small Abnormal NEG [facility] Comment on above: Performed By: #### C BCA, PINR, 62262-7, BMP, 3040-3, 72511-9, 5643-2, LIVR, 15837-6, 11644-6, THYR, 41047-1, 28899-8 #### [facility] ([id number]) [address] [place] [address] [place] [address] NITRITE TORRES Positive Abnormal NEG [facility] Comment on above: Performed By: #### C BCA, PINR, 71037-4, BMP, 3040-3, 62029-6, 5643-2, LIVR, 09380-5, 73009-7, THYR, 87131-7, 38847-5 #### [facility] ([id number]) [address] [place] [address] 94799 PH TORRES 6.5 Normal 5.0-8.5 [facility] Comment on above: Performed By: #### C BCA, PINR, 04127-4, BMP, 3040-3, 13164-8, 5643-2, LIVR, 76402-4, 29662-9, THYR, 64411-9, 97759-7 #### [facility] ([id number]) [address] [place] [address] 15782 PROTEIN TORRES 100 mg/dL Abnormal NEG [facility] Comment on above: Performed By: #### C BCA, PINR, 13645-4, BMP, 3040-3, 00353-7, 5643-2, LIVR, 46301-6, 74912-6, THYR, 06819-9, 88430-6 #### [facility] ([id number]) [address] [place] [address] 09827 SPECIFIC GRAVITY TORRES >=1.030 Normal 1.003-1.035 [facility] Comment on above: Performed By: #### C BCA, PINR, 20468-2, BMP, 3040-3, 65039-8, 5643-2, LIVR, 08905-7, 71509-8, THYR, 72402-2, 96017-8 #### [facility] ([id number]) [address] [place] [address] 66855 UROBILINOGEN TORRES 1.0 eu/dL Normal <1.1 [facility] Comment on above: Performed By: #### C BCA, PINR, 63099-6, BMP, 3040-3, 40488-2, 5643-2, LIVR, 21321-6, 78522-5, THYR, 52088-9, 71992-8 #### [facility] ([id number]) [address] [place] [address] 49567 URINE CULTUREon 09-28-2023 Bacteria identified Cx Nom (U) CULTURE RESULTS >100,000 ORGANISMS/mL KLEBSIELLA PNEUMONIAE CULTURE IN PROGRESS Abnormal [facility] Comment on above: Performed By: #### 6 30-4 #### [facility] ([id number]) [address] [place] [address], [address] [place] [address] Aerobic Cultureon 09-22-2023 Aerobic Culture ORGANISM: Enterococcus faecalis (O:ENTFAC) Quantity of Growth Moderate Growth ORGANISM: Methicillin Resis Staph Aureus (O:MRSA) Quantity of Growth Moderate Growth ORGANISM: Bacteroides fragilis (O:BACFRA) Comments Sent to [facility] for Sensitivity Testing Quantity of Growth [...] RESISTANT TO ALL B-LACTAM DRUGS. PERFORMED BY: [place] [address] PATHOLOGIST INSTRUMENT LENS GRINDER APPRENTICE LEANDRO DINERO M.D. Normal [facility] Comment on above: Performed By: #### A ERC #### [address] Gram stain for investigation of transfusion reactionOrdered By: Martha Wilkes on 09-22-2023 Microscopic observation Gram stain Nom (Unsp spec) Bacteroides fragilis [facility] Blood Urea Nitrogenon 2023 Urea nitrogen [Mass/Vol] 19 mg/dL Normal 7- [facility] Comment on above: Performed By: #### C REAT, BUN #### [facility] [address] [place] [address] [place] Creatinineon 09-13-2023 Creatinine [Mass/Vol] 0.82 mg/dL Normal 0.70-1.30 [facility] Comment on above: Performed By: #### C REAT, BUN #### [facility] [address] [place] [address] [place] Creatinine Clr Calc Pharmacy 78.09 Normal [facility] Comment on above: Result Comment: PERF ORMED BY: [place] [address] PATHOLOGIST INSTRUMENT LENS GRINDER APPRENTICE LEANDRO DINERO M.D. Performed By: #### C TORREY, BUN #### [place] [address] [place] GFR/1.73 sq M.predicted MDRD (S/P/Bld) [Vol rate/Area] mL/min/{1.73_m2} Normal [facility] Comment on above: Performed By: #### C TORREY, BUN #### [place] [address] [place] Creatinine [Mass/volume] in Serum or PlasmaOrdered By: Steven Horta on 09-13-2023 Creatinine [Mass/Vol] 0.82 mg/dL 0.70-1.30 [facility] No Panel InformationOrdered By: Steven Horta on 09-13-2023 Estimated GFR (CKD-EPI) > 60.0 mL/Min [facility] Creatinine Clearance (Chem 78.09 [facility] Urea nitrogen [Mass/volume] in Serum or PlasmaOrdered By: Steven Horta on 09-13-2023 Urea nitrogen [Mass/Vol] 19 mg/dL 7- [facility] Automated erythrocytes count in urine sediment (number/area)Ordered By: Jose Enrique Almendarez on 03-02-2024 RBC Auto (Urine sed) [#/Area] 50-100 [HPF] 0-4 [facility] Automated leukocytes count i n urine sediment (number/area)Ordered By: Jose Enrique Erickson on 08-28-2023 WBC Auto (Urine sed) [#/Area] Innumerable [HPF] 0-4 [facility] Automated urine color determ inationOrdered By: Jose Enrique Almendarez on 08-28-2023 Color (U) Dark yellow Critically abnormal Yellow [facility] Comment on above: Order Comment: Name Collection Type:: Ramos Catheter Performed By: #### A DDONUAPLUS, CUU #### [facility] [address] [place] [address] [place] Automated urine hyaline cast s count (number/volume)Ordered By: Jose Enrique Almendarez on 08-28-2023 Hyaline casts Auto (U) [#/Vol] None seen [LPF] 0-1 [facility] Automated urine sediment sarah cium oxalate crystal count by microscopy (number/high powOrdered By: Jose Enrique Almendarez on 08-28-2023 Calcium oxalate crystals LM.HPF (Urine sed) [#/Area] 1+ [HPF] [facility] Bilirubin Test strip Ql (U)O rdered By: Jose Enrique Almendarez on 08-28-2023 Bilirubin Ql (U) Negative Negative [facility] Casts typing in urine sedime nt by light microscopyOrdered By: Jose Enrique Almendarez on 08-28-2023 Casts LM Nom (Urine sed) None seen [LPF] None Seen [facility] Dipstick and Microscopicon 0 08-28-2023 Appearance (U) Turbid Critically abnormal Clear [facility] Comment on above: Order Comment: Name Collection Type:: Ramos Catheter Performed By: #### A DDONUAPLUS, CUU #### [facility] [address] [place] [id number] [place] Bacteria,Urine 4+ High None Seen [facility] Comment on above: Order Comment: Name Collection Type:: Ramos Catheter Performed By: #### A DDONUAPLUS, CUU #### [facility] [address] [place] [id number] [place] Bilirubin,Urine Negative Normal Negative [facility] Comment on above: Order Comment: Name Collection Type:: Ramos Catheter Performed By: #### A DDONUAPLUS, CUU #### [address] Calcium Oxalate Crystals,Urine 1+ Normal [facility] Comment on above: Order Comment: Name Collection Type:: Ramos Catheter Performed By: #### A DDONUAPLUS, CUU #### [address] Glucose Ql (U) Normal Normal Normal [facility] Comment on above: Order Comment: Name Collection Type:: Ramos Catheter Performed By: #### A DDONUAPLUS, CUU #### [place] [address] [place] Hyaline Casts,Urine None Seen Normal 0-1 [facility] Comment on above: Order Comment: Name Collection Type:: Ramos Catheter Performed By: #### A DDONUAPLUS, CUU #### [address] Ketones Ql (U) 1+ High Negative [facility] Comment on above: Order Comment: Name Collection Type:: Ramos Catheter Performed By: #### A DDONUAPLUS, CUU #### [address] Leukocyte esterase Test strip Ql (U) 4+ High Negative [facility] Comment on above: Order Comment: Name Collection Type:: Ramos Catheter Performed By: #### A DDONUAPLUS, CUU #### [place] [address] [place] Nitrite,Urine Negative Normal Negative [facility] Comment on above: Order Comment: Name Collection Type:: Ramos Catheter Performed By: #### A DDONUAPLUS, CUU #### [place] [address] [place] Occult Blood,Urine 3+ High Negative [facility] Comment on above: Order Comment: Name Collection Type:: Ramos Catheter Result Comment: PERF ORMED BY: [address] [place] [address] PATHOLOGIST INSTRUMENT LENS GRINDER APPRENTICE LEANDRO DINERO M.D. Performed By: #### A DDONUAPLUS, CUU #### [address] Othe Crystals,Urine None Seen Normal [facility] Comment on above: Order Comment: Name Collection Type:: Ramos Catheter Performed By: #### A DDONUAPLUS, CUU #### [address] Other Casts,Urine None Seen Normal None Seen [facility] Comment on above: Order Comment: Name Collection Type:: Ramos Catheter Performed By: #### A DDONUAPLUS, CUU #### [address] RBC,Urine 50-100 High 0-4 [facility] Comment on above: Order Comment: Name Collection Type:: Ramos Catheter Performed By: #### A DDONUAPLUS, CUU #### [address] Specificy [place],Urine 1.029 Normal 1.001-1.030 [facility] Comment on above: Order Comment: Name Collection Type:: Ramos Catheter Performed By: #### A DDONUAPLUS, CUU #### [address] Squamous Epithelial Cell,Urine 5-9 High 0-2 [facility] Comment on above: Order Comment: Name Collection Type:: Ramos Catheter Performed By: #### A DDONUAPLUS, CUU #### [address] Urobilinogen,Urine Normal Normal Normal [facility] Comment on above: Order Comment: Name Collection Type:: Ramos Catheter Performed By: #### A DDONUAPLUS, CUU #### [address] WBC,Urine Innumerable High 0-4 [facility] Comment on above: Order Comment: Name Collection Type:: Ramos Catheter Performed By: #### A DDONUAPLUS, CUU #### [facility] [address] Yeast,Urine None Seen Normal None Seen [facility] Comment on above: Order Comment: Name Collection Type:: Ramos Catheter Result Comment: PERF ORMED BY: [place] [address] PATHOLOGIST INSTRUMENT LENS GRINDER APPRENTICE LEANDRO DINERO M.D. Performed By: #### A DDONUAPLUS, CUU #### [facility] [address] Ketones Auto test strip (U) [Mass/Vol]Ordered By: Jose Enrique Almendarez on 08-28-2023 Ketones (U) [Mass/Vol] 1+ Negative [facility] Nitrite Test strip Ql (U)Ord ered By: Jose Enrique Almendarez on 08-28-2023 Nitrite Ql (U) Negative Negative [facility] Specific gravity Auto test s trip (U) [Rel density]Ordered By: Jose Enrique Almendarez on 08-28-2023 Specific gravity (U) [Rel density] 1.029 1.001-1.030 [facility] Squamous epithelial cells de tection in urine sediment by light microscopyOrdered By: Jose Enrique Almendarez on 08-28-2023 Epithelial cells.squamous LM Ql (Urine sed) 5-9 [HPF] 0-2 [facility] Urine Cultureon 08-28-2023 Bacteria identified Cx Nom (U) ORGANISM: Klebsiella pneumoniae (O:KLEPNE) [place] Count >100,000 ORGANISM: Enterococcus faecalis (O:ENTFAC) [place] Count 75,000 Aerobic BEAU Charge (NMIC56) ---- [...] RESISTANT TO ALL B-LACTAM DRUGS. PERFORMED BY: [place] [address] PATHOLOGIST INSTRUMENT LENS GRINDER APPRENTICE LEANDRO DINERO M.D. Normal [facility] Comment on above: Performed By: #### A DDMESHAUAALEJANDRA, JARED #### [address] Urine bacteria detection by automated methodOrdered By: Jose Enrique Almendarez on 08-28-2023 Bacteria Auto Ql (U) 4+ None Seen [facility] Urine clarity by refractomet ry automatedOrdered By: Jose Enrique Almendarez on 08-28-2023 Clarity Refractometry automated (U) Turbid Clear [facility] Urine culture routineOrdered By: Jose Enrique Almendarez on 08-28-2023 Bacteria identified Cx Nom (U) Enterococcus faecalis [facility] Urine glucose measurement by automated test strip (mass/volume)Ordered By: Jose Enrique Almendarez on 08-28-2023 Glucose Auto test strip (U) [Mass/Vol] Normal mg/dL Normal [facility] Urine hemoglobin detection b y automated test stripOrdered By: Jose Enrique Almendarez on 08-28-2023 Hemoglobin Auto test strip Ql (U) 3+ Negative [facility] Urine leukocyte esterase det ection by automated test stripOrdered By: Jose Enrique Almendarez on 08-28-2023 Leukocyte esterase Auto test strip Ql (U) 4+ Negative [facility] Urine pH measurement by auto mated test stripOrdered By: Jose Enrique Almendarez on 08-28-2023 pH (U) 5.5 [pH] Normal 5.0-9.0 [facility] Comment on above: Order Comment: Name Collection Type:: Ramos Catheter Performed By: #### A DDONUAPLUS, CUU #### [address] Urine protein measurement by automated test strip (mass/volume)Ordered By: Jose Enrique Almendarez on 08-28-2023 Protein (U) [Mass/Vol] 300 mg/dL High Negative [facility] Comment on above: Order Comment: Name Collection Type:: Ramos Catheter Performed By: #### A DDONUAPLUS, CUU #### [address] Urine sediment crystal ident ification by light microscopyOrdered By: Jose Enrique Almendarez on 08-28-2023 Crystals LM Nom (Urine sed) None seen [HPF] [facility] Urobilinogen Auto test strip (U) [Mass/Vol]Ordered By: Jose Enrique Almendarez on 08-28-2023 Urobilinogen (U) [Mass/Vol] Normal mg/dL Normal [facility] Yeast detection in urine sed iment by light microscopyOrdered By: Jose Enrique Almendarez on 08-28-2023 Yeast LM Ql (Urine sed) None seen [HPF] None Se en [facility] US arterial pvr rest Ally US arterial pvr rest LE [facility] Main [address] [address] Ultrasound Report Signed Patient: Gagandeep Ahn MR#: [id number] [birth year] : 1950 Acct:[id number] Age/Sex: 72 / M ADM Date: 08/26/23 Loc: Room: Type: [facility] CLI Attending Dr: Martha Wilkes APRN Ordering Provider: Martha Wilkes APRN Date of Service: 08/26/23 US/US arterial pvr rest LE: E11.59, I70.245, I70.235 Copies to: Martah Wilkes APRN LOWER EXTREMITY SEGMENTAL ARTERIAL DOPSCAN [...] Austyn Martinez M.D.08/27/2023 10:50 AM Dictation Location: [place] [address] Tech: Stephani Lo Transcribed By: MARTHA 08/27/23 1050 Dictated By: Austyn Martinez MD 08/27/23 1049 Signed By: 08/27/23 1050 Normal [facility] XR calcaneus BIon 08-19-2023 XR calcaneus BI [facility] Main [address] [address] XRay Report Signed Patient: Gagandeep Ahn MR#: [id number] [birth year] : 1950 Acct:[id number] Age/Sex: 72 / M ADM Date: 08/19/23 Loc: Room: Type: [facility] Attending Dr: Martha Wilkes APRN Copies to: [...] Austyn Day M.D.08/19/2023 10:46 AM Dictation Location: [place] [address] Transcribed By: [facility] 08/19/23 1046 Dictated By: Austyn Day DO 08/19/23 1041 Signed By: 08/19/23 1046 Normal [facility] CBC AND AUTO DIFFon 06-30-19 ABSOLUTE BASOPHIL 0.0 X10E9/L Normal 0.0-0.2 [facility] Comment on above: Performed By: #### C BCA, PINR, 94574-3, BMP, 3040-3, 61895-7, 5643-2, LIVR, 35169-3, 80978-7, THYR, 34757-4, 68950-6 #### [facility] ([id number]) [address] [place] [address], [place] [address] ABSOLUTE NEUTROPHIL 12.7 X10E9/L High 1.5-6.6 [facility] Comment on above: Performed By: #### C BCA, PINR, 08150-9, BMP, 3040-3, 21547-8, 5643-2, LIVR, 11512-0, 51020-7, THYR, 13600-9, 27174-1 #### [facility] ([id number]) [address] [place] [address] [place] [address] Basophils/100 WBC (Bld) 0.1 % Normal [facility] Comment on above: Performed By: #### C BCA, PINR, 12356-8, BMP, 3040-3, 77967-9, 5643-2, LIVR, 56606-6, 98705-0, THYR, 87518-3, 46377-4 #### [facility] ([id number]) [address] [place] [address] 49274 Eosinophils (Bld) [#/Vol] 0.0 10*3/uL Normal 0.0-0.4 [facility] Comment on above: Performed By: #### C BCA, PINR, 09192-3, BMP, 3040-3, 77701-1, 5643-2, LIVR, 86396-9, 36555-4, THYR, 91522-5, 77399-5 #### [facility] ([id number]) [address] [place] [address] [place] [address] Eosinophils/100 WBC (Bld) 0.1 % Normal [facility] Comment on above: Performed By: #### C BCA, PINR, 52205-2, BMP, 3040-3, 77419-0, 5643-2, LIVR, 29887-3, 88281-6, THYR, 07566-0, 46715-1 #### [facility] ([id number]) [address] [place] [address] [place] [address] Erythrocyte distribution width (RBC) [Ratio] 15.1 % High 11.5-15.0 [facility] Comment on above: Performed By: #### C BCA, PINR, 79115-9, BMP, 3040-3, 06531-1, 5643-2, LIVR, 52219-4, 10120-2, THYR, 90150-4, 21304-1 #### [facility] ([id number]) [address] [place] [address] 16977 Hematocrit (Bld) [Volume fraction] 35.4 % Low 39-49 [facility] Comment on above: Performed By: #### C BCA, PINR, 59576-3, BMP, 3040-3, 58451-4, 5643-2, LIVR, 94256-8, 98951-3, THYR, 74450-4, 05017-0 #### [facility] ([id number]) [address] [place] [address] 51447 Hemoglobin (Bld) [Mass/Vol] 12.2 g/dL Low 13.0-17.0 [facility] Comment on above: Performed By: #### C BCA, PINR, 32925-3, BMP, 3040-3, 91633-6, 5643-2, LIVR, 28510-4, 57350-8, THYR, 15119-6, 13081-0 #### [facility] ([id number]) [address] [place] [address] [place] [address] Lymphocytes (Bld) [#/Vol] 0.5 10*3/uL Low 1.0-3.5 [facility] Comment on above: Performed By: #### C BCA, PINR, 20104-5, BMP, 3040-3, 85556-8, 5643-2, LIVR, 40053-8, 10117-9, THYR, 12460-1, 23870-2 #### [facility] ([id number]) [address] [place] [address] 96870 Lymphocytes/100 WBC (Bld) 3.9 % Normal [facility] Comment on above: Performed By: #### C BCA, PINR, 01802-2, BMP, 3040-3, 63716-4, 5643-2, LIVR, 03168-8, 99211-9, THYR, 54519-5, 14284-0 #### [facility] ([id number]) [address] [place] [address] 61958 MCH (RBC) [Entitic mass] 28.7 pg Normal 27-34 [facility] Comment on above: Performed By: #### C BCA, PINR, 48113-3, BMP, 3040-3, 29749-5, 5643-2, LIVR, 87602-5, 96010-8, THYR, 92386-7, 89042-0 #### [facility] ([id number]) [address] [place] [address] 92275 MCHC (RBC) [Mass/Vol] 34.4 g/dL Normal 32-36 [facility] Comment on above: Performed By: #### C BCA, PINR, 45731-4, BMP, 3040-3, 54319-1, 5643-2, LIVR, 38204-0, 82285-1, THYR, 52442-2, 52389-9 #### [facility] ([id number]) [address] [place] [address] 98001 MCV (RBC) [Entitic vol] 84 fL Normal 80-100 P [facility] Comment on above: Performed By: #### C BCA, PINR, 28167-5, BMP, 3040-3, 40843-8, 5643-2, LIVR, 74754-4, 37710-4, THYR, 06049-7, 27291-1 #### [facility] ([id number]) [address] [place] [address] 14701 Monocytes (Bld) [#/Vol] 0.6 10*3/uL Normal 0-0.9 [facility] Comment on above: Performed By: #### C BCA, PINR, 52699-2, BMP, 3040-3, 59922-9, 5643-2, LIVR, 55428-5, 33151-1, THYR, 31185-3, 39424-8 #### [facility] ([id number]) [address] [place] [address] 30850 Monocytes/100 WBC (Bld) 4.4 % Normal [facility] Comment on above: Performed By: #### C BCA, PINR, 51404-0, BMP, 3040-3, 27092-1, 5643-2, LIVR, 40949-9, 45582-5, THYR, 40211-8, 45262-7 #### [facility] ([id number]) [address] [place] [address] 82990 Neutrophils/100 WBC (Bld) 91.5 % Normal [facility] Comment on above: Performed By: #### C BCA, PINR, 11241-5, BMP, 3040-3, 85678-9, 5643-2, LIVR, 97822-4, 41594-6, THYR, 56261-5, 34741-7 #### [facility] ([id number]) [address] [place] [address] 58912 Platelet mean volume (Bld) [Entitic vol] 8.6 fL Normal 7-12 [facility] Comment on above: Performed By: #### C BCA, PINR, 18679-0, BMP, 3040-3, 03735-9, 5643-2, LIVR, 29205-5, 74088-7, THYR, 14710-0, 13437-2 #### [facility] ([id number]) [address] [place] [address] 16073 Platelets (Bld) [#/Vol] 177 10*3/uL Normal 150-450 [facility] Comment on above: Performed By: #### C BCA, PINR, 21146-3, BMP, 3040-3, 00791-3, 5643-2, LIVR, 19110-8, 47896-6, THYR, 96787-9, 87949-2 #### [facility] ([id number]) [address] [place] [address] 53434 RBC COUNT 4.23 X10E12/L Normal 4.10-5.70 [facility] Comment on above: Performed By: #### C BCA, PINR, 63720-5, BMP, 3040-3, 37966-6, 5643-2, LIVR, 43407-9, 63487-6, THYR, 24677-5, 16699-9 #### [facility] ([id number]) [address] [place] [address] 59749 WBC (Bld) [#/Vol] 13.9 10*3/uL High 4.0-11.0 [facility] Comment on above: Performed By: #### C BCA, PINR, 45731-6, BMP, 3040-3, 16466-4, 5643-2, LIVR, 54491-2, 20634-7, THYR, 56439-5, 56496-5 #### [facility] ([id number]) [address] [place] [address] 78732 COMPREHENSIVE METABOLIC PANE Nilson 06-30-2023 Albumin [Mass/Vol] 3.1 g/dL Low 3.2-5.3 [facility] Comment on above: Performed By: #### C BCA, PINR, 33106-6, BMP, 3040-3, 14813-0, 5643-2, LIVR, 48124-6, 09861-5, THYR, 31179-1, 73386-5 #### [facility] ([id number]) [address] [place] [address] 11509 ALP [Catalytic activity/Vol] 42 U/L Normal 39-130 [facility] Comment on above: Performed By: #### C BCA, PINR, 37042-9, BMP, 3040-3, 41336-3, 5643-2, LIVR, 97422-5, 63143-1, THYR, 50906-9, 43596-6 #### [facility] ([id number]) [address] [place] [address] 60348 ALT [Catalytic activity/Vol] 46 U/L High 0-40 [facility] Comment on above: Performed By: #### C BCA, PINR, 44752-5, BMP, 3040-3, 67981-2, 5643-2, LIVR, 39647-7, 33275-3, THYR, 50265-1, 94890-2 #### [facility] ([id number]) [address] [place] [address] 59037 Anion gap [Moles/Vol] 10 mmol/L Normal 5-15 [facility] Comment on above: Performed By: #### C BCA, PINR, 08489-6, BMP, 3040-3, 44109-6, 5643-2, LIVR, 72474-0, 19538-0, THYR, 63775-1, 35344-4 #### [facility] ([id number]) [address] [place] [address] 52964 AST [Catalytic activity/Vol] 35 U/L Normal 0-41 [facility] Comment on above: Performed By: #### C BCA, PINR, 63492-8, BMP, 3040-3, 30627-9, 5643-2, LIVR, 91921-3, 56393-1, THYR, 43324-6, 14614-8 #### [facility] ([id number]) [address] [place] [address] 61666 Bilirubin [Mass/Vol] 1.2 mg/dL Normal 0.3-1.2 [facility] Comment on above: Performed By: #### C BCA, PINR, 15188-0, BMP, 3040-3, 74620-9, 5643-2, LIVR, 88315-2, 37386-0, THYR, 54678-1, 69265-4 #### [facility] ([id number]) [address] [place] [address] 24344 Calcium [Mass/Vol] 8.2 mg/dL Low 8.5-10.5 [facility] Comment on above: Performed By: #### C BCA, PINR, 44241-1, BMP, 3040-3, 10092-9, 5643-2, LIVR, 53263-5, 59394-4, THYR, 68017-5, 45174-8 #### [facility] ([id number]) [address] [place] [address] 72161 Chloride [Moles/Vol] 100 mmol/L Normal 98-109 [facility] Comment on above: Performed By: #### C BCA, PINR, 69225-6, BMP, 3040-3, 15056-2, 5643-2, LIVR, 52615-7, 40024-2, THYR, 09549-1, 73486-2 #### [facility] ([id number]) [address] [place] [address] 09449 CO2 [Moles/Vol] 23 mmol/L Normal 22-32 [facility] Comment on above: Performed By: #### C BCA, PINR, 56619-7, BMP, 3040-3, 80429-4, 5643-2, LIVR, 68355-7, 04628-3, THYR, 77678-9, 01183-7 #### [facility] ([id number]) [address] [place] [address] [place] [address] Creatinine [Mass/Vol] 1.02 mg/dL Normal 0.70-1.20 [facility] Comment on above: Result Comment: METH OD TRACEABLE TO IDMS STANDARD Performed By: #### C BCA, PINR, 03492-7, BMP, 3040-3, 87166-9, 5643-2, LIVR, 02887-5, 31611-7, THYR, 29393-3, 97022-1 #### [facility] ([id number]) [address] [place] [address] 02664 GFR/1.73 sq M.predicted among non-blacks MDRD (S/P/Bld) [Vol rate/Area] 77 mL/min/{1.73_m2} Normal >59 [facility] Comment on above: Result Comment: Reported eGFR is based on the CKD-EPI 2020 equation that does not use a race coefficient. Performed By: #### C BCA, PINR, 47896-1, BMP, 3040-3, 41642-2, 5643-2, LIVR, 36994-4, 67676-6, THYR, 61048-2, 40925-2 #### [facility] ([id number]) [address] [place] [address] 14930 Glucose [Mass/Vol] 168 mg/dL High 65-99 [facility] Comment on above: Performed By: #### C BCA, PINR, 96530-0, BMP, 3040-3, 50045-1, 5643-2, LIVR, 74279-3, 05917-2, THYR, 36359-2, 89450-3 #### [facility] ([id number]) [address] [place] [address] 32985 Potassium [Moles/Vol] 3.3 mmol/L Low 3.5-5.0 [facility] Comment on above: Performed By: #### C BCA, PINR, 75530-8, BMP, 3040-3, 00976-3, 5643-2, LIVR, 66089-8, 04211-9, THYR, 33293-9, 51670-8 #### [facility] ([id number]) [address] [place] [address] 29134 Protein [Mass/Vol] 6.7 g/dL Normal 6.0-8.0 [facility] Comment on above: Performed By: #### C BCA, PINR, 46464-2, BMP, 3040-3, 90063-9, 5643-2, LIVR, 34943-1, 71474-6, THYR, 50483-5, 08597-2 #### [facility] ([id number]) [address] [place] [address] 39103 Sodium [Moles/Vol] 133 mmol/L Low 134-146 [facility] Comment on above: Performed By: #### C BCA, PINR, 27445-4, BMP, 3040-3, 78677-3, 5643-2, LIVR, 77780-9, 50243-2, THYR, 35421-2, 33491-0 #### [facility] ([id number]) [address] [place] [address] [place] [address] Urea nitrogen [Mass/Vol] 21 mg/dL Normal 5-27 [facility] Comment on above: Performed By: #### C BCA, PINR, 58450-2, BMP, 3040-3, 88032-1, 5643-2, LIVR, 74708-0, 84823-6, THYR, 92565-5, 06955-1 #### [facility] ([id number]) [address] [place] [address] 33195 Glucose Glucometer (BldC) [M ass/Vol]on 06-30-2023 Glucose [Mass/Vol] 188 mg/dL High 65-99 [facility] Glucose [Mass/Vol] 191 mg/dL High 65-99 [facility] MAGNESIUMon 06-30-2023 Magnesium [Mass/Vol] 1.8 mg/dL Normal 1.8-2.6 [facility] Comment on above: Performed By: #### C BCA, PINR, 03944-5, BMP, 3040-3, 72737-6, 5643-2, LIVR, 05981-4, 87006-7, THYR, 03617-9, 14837-7 #### [facility] ([id number]) [address] [place] [address] 65293 POTASSIUMon 06-30-2023 Potassium [Moles/Vol] 3.7 mmol/L Normal 3.5-5.0 [facility] Comment on above: Performed By: #### C BCA, PINR, 58610-8, BMP, 3040-3, 97380-3, 5643-2, LIVR, 23368-8, 08793-8, THYR, 61128-6, 57602-3 #### [facility] ([id number]) [address] [place] [address] 52590 CBC AND AUTO DIFFon 06-29-19 ABSOLUTE BASOPHIL 0.0 X10E9/L Normal 0.0-0.2 [facility] Comment on above: Performed By: #### C BCA, PINR, 32958-6, BMP, 3040-3, 73025-4, 5643-2, LIVR, 25697-2, 30123-8, THYR, 33470-1, 22037-8 #### [facility] ([id number]) [address] [place] [address] 21102 ABSOLUTE NEUTROPHIL 6.1 X10E9/L Normal 1.5-6.6 [facility] Comment on above: Performed By: #### C BCA, PINR, 82067-2, BMP, 3040-3, 02242-2, 5643-2, LIVR, 44134-9, 80987-7, THYR, 24212-3, 18327-5 #### [facility] ([id number]) [address] [place] [address] 59314 Basophils/100 WBC (Bld) 0.5 % Normal [facility] Comment on above: Performed By: #### C BCA, PINR, 54363-9, BMP, 3040-3, 80329-8, 5643-2, LIVR, 85790-1, 02687-2, THYR, 00180-1, 21357-9 #### [facility] ([id number]) [address] [place] [address] 54236 Eosinophils (Bld) [#/Vol] 0.1 10*3/uL Normal 0.0-0.4 [facility] Comment on above: Performed By: #### C BCA, PINR, 80709-0, BMP, 3040-3, 80155-4, 5643-2, LIVR, 31460-0, 52080-6, THYR, 08872-7, 93678-7 #### [facility] ([id number]) [address] [place] [address] 45211 Eosinophils/100 WBC (Bld) 1.4 % Normal [facility] Comment on above: Performed By: #### C BCA, PINR, 87760-5, BMP, 3040-3, 68312-3, 5643-2, LIVR, 49344-2, 89808-6, THYR, 36817-6, 62626-7 #### [facility] ([id number]) [address] [place] [address] 07613 Erythrocyte distribution width (RBC) [Ratio] 15.2 % High 11.5-15.0 [facility] Comment on above: Performed By: #### C BCA, PINR, 72458-9, BMP, 3040-3, 76703-1, 5643-2, LIVR, 35579-8, 68337-0, THYR, 60243-9, 88994-9 #### [facility] ([id number]) [address] [place] [address] 53598 Hematocrit (Bld) [Volume fraction] 36.2 % Low 39-49 [facility] Comment on above: Performed By: #### C BCA, PINR, 00418-0, BMP, 3040-3, 77496-5, 5643-2, LIVR, 98828-6, 01345-3, THYR, 92796-1, 05566-9 #### [facility] ([id number]) [address] [place] [address] 38822 Hemoglobin (Bld) [Mass/Vol] 12.5 g/dL Low 13.0-17.0 [facility] Comment on above: Performed By: #### C BCA, PINR, 86996-9, BMP, 3040-3, 50876-6, 5643-2, LIVR, 04363-5, 31476-9, THYR, 85641-9, 91458-8 #### [facility] ([id number]) [address] [place] [address] 46613 Lymphocytes (Bld) [#/Vol] 0.9 10*3/uL Low 1.0-3.5 [facility] Comment on above: Performed By: #### C BCA, PINR, 70003-8, BMP, 3040-3, 45349-4, 5643-2, LIVR, 30498-5, 74219-3, THYR, 12343-8, 08385-4 #### [facility] ([id number]) [address] [place] [address] 29755 Lymphocytes/100 WBC (Bld) 11.6 % Normal [facility] Comment on above: Performed By: #### C BCA, PINR, 17327-2, BMP, 3040-3, 55215-4, 5643-2, LIVR, 96567-2, 47438-3, THYR, 47345-5, 99384-3 #### [facility] ([id number]) [address] [place] [address] 06550 MCH (RBC) [Entitic mass] 28.7 pg Normal 27-34 [facility] Comment on above: Performed By: #### C BCA, PINR, 60798-8, BMP, 3040-3, 75680-4, 5643-2, LIVR, 42018-8, 11028-9, THYR, 91969-1, 60230-0 #### [facility] ([id number]) [address] [place] [address] MCHC (RBC) [Mass/Vol] 34.4 g/dL Normal 32-36 [facility] Comment on above: Performed By: #### C BCA, PINR, 16851-8, BMP, 3040-3, 04396-7, 5643-2, LIVR, 78061-4, 37837-9, THYR, 40864-1, 79102-5 #### [facility] ([id number]) [address] [place] [address] 30498 MCV (RBC) [Entitic vol] 83 fL Normal 80-100 P [facility] Comment on above: Performed By: #### C BCA, PINR, 12989-2, BMP, 3040-3, 46301-5, 5643-2, LIVR, 90780-6, 50044-8, THYR, 84772-7, 41803-1 #### [facility] ([id number]) [address] [place] [address] 07854 Monocytes (Bld) [#/Vol] 0.7 10*3/uL Normal 0-0.9 [facility] Comment on above: Performed By: #### C BCA, PINR, 13491-1, BMP, 3040-3, 13755-5, 5643-2, LIVR, 46933-4, 67564-1, THYR, 02039-5, 15228-5 #### [facility] ([id number]) [address] [place] [address] 81698 Monocytes/100 WBC (Bld) 8.5 % Normal P [facility] Comment on above: Performed By: #### C BCA, PINR, 76483-4, BMP, 3040-3, 48276-0, 5643-2, LIVR, 14489-7, 28516-0, THYR, 90888-3, 37026-4 #### [facility] ([id number]) [address] [place] [address] 79075 Neutrophils/100 WBC (Bld) 78.0 % Normal [facility] Comment on above: Performed By: #### C BCA, PINR, 93439-2, BMP, 3040-3, 61728-8, 5643-2, LIVR, 77035-8, 14294-7, THYR, 48480-4, 17351-9 #### [facility] ([id number]) [address] [place] [address] [place] [address] Platelet mean volume (Bld) [Entitic vol] 7.9 fL Normal 7-12 [facility] Comment on above: Performed By: #### C BCA, PINR, 36204-9, BMP, 3040-3, 96901-5, 5643-2, LIVR, 95738-7, 52749-8, THYR, 58339-0, 97545-7 #### [facility] ([id number]) [address] [place] [address] 99956 Platelets (Bld) [#/Vol] 184 10*3/uL Normal 150-450 [facility] Comment on above: Performed By: #### C BCA, PINR, 64859-6, BMP, 3040-3, 98915-4, 5643-2, LIVR, 25339-5, 38134-6, THYR, 66299-3, 81208-8 #### [facility] ([id number]) [address] [place] [address] 69163 RBC COUNT 4.34 X10E12/L Normal 4.10-5.70 [facility] Comment on above: Performed By: #### C BCA, PINR, 04219-0, BMP, 3040-3, 27817-7, 5643-2, LIVR, 70325-0, 13129-1, THYR, 09200-8, 27013-9 #### [facility] ([id number]) [address] [place] [address] WBC (Bld) [#/Vol] 7.8 10*3/uL Normal 4.0-11.0 [facility] Comment on above: Performed By: #### C BCA, PINR, 35320-5, BMP, 3040-3, 13751-5, 5643-2, LIVR, 63003-4, 70499-6, THYR, 36794-9, 18829-1 #### [facility] ([id number]) [address] [place] [address] 07959 COMPREHENSIVE METABOLIC PANE Nilson 06-29-2023 Albumin [Mass/Vol] 3.4 g/dL Normal 3.2-5.3 [facility] Comment on above: Performed By: #### C BCA, PINR, 24716-5, BMP, 3040-3, 32866-4, 5643-2, LIVR, 02613-7, 24800-7, THYR, 90982-9, 42032-9 #### [facility] ([id number]) [address] [place] [address] 90423 ALP [Catalytic activity/Vol] 43 U/L Normal 39-130 [facility] Comment on above: Performed By: #### C BCA, PINR, 92993-0, BMP, 3040-3, 38312-8, 5643-2, LIVR, 82111-5, 04034-1, THYR, 80596-0, 89787-8 #### [facility] ([id number]) [address] [place] [address] 57879 ALT [Catalytic activity/Vol] 63 U/L High 0-40 [facility] Comment on above: Performed By: #### C BCA, PINR, 58616-3, BMP, 3040-3, 66286-0, 5643-2, LIVR, 92521-2, 72340-0, THYR, 69601-3, 90353-3 #### [facility] ([id number]) [address] [place] [address] 81545 Anion gap [Moles/Vol] 8 mmol/L Normal 5-15 [facility] Comment on above: Performed By: #### C BCA, PINR, 60339-8, BMP, 3040-3, 74229-9, 5643-2, LIVR, 89021-4, 28914-5, THYR, 78552-1, 19012-7 #### [facility] ([id number]) [address] [place] [address] 71357 AST [Catalytic activity/Vol] 64 U/L High 0-41 [facility] Comment on above: Performed By: #### C BCA, PINR, 55995-4, BMP, 3040-3, 99243-1, 5643-2, LIVR, 26883-9, 61821-0, THYR, 60070-4, 05610-0 #### [facility] ([id number]) [address] [place] [address] 49369 Bilirubin [Mass/Vol] 0.7 mg/dL Normal 0.3-1.2 [facility] Comment on above: Performed By: #### C BCA, PINR, 42066-2, BMP, 3040-3, 20341-4, 5643-2, LIVR, 23134-6, 20098-1, THYR, 11982-9, 94549-8 #### [facility] ([id number]) [address] [place] [address] 23418 Calcium [Mass/Vol] 8.2 mg/dL Low 8.5-10.5 [facility] Comment on above: Performed By: #### C BCA, PINR, 51638-0, BMP, 3040-3, 54137-2, 5643-2, LIVR, 15024-5, 34330-7, THYR, 88588-7, 17730-1 #### [facility] ([id number]) [address] [place] [address] [place] [address] Chloride [Moles/Vol] 103 mmol/L Normal 98-109 [facility] Comment on above: Performed By: #### C BCA, PINR, 12201-6, BMP, 3040-3, 54410-9, 5643-2, LIVR, 34781-7, 88916-1, THYR, 78791-6, 66262-9 #### [facility] ([id number]) [address] [place] [address] 93326 CO2 [Moles/Vol] 22 mmol/L Normal 22-32 [facility] Comment on above: Performed By: #### C BCA, PINR, 35781-7, BMP, 3040-3, 75550-0, 5643-2, LIVR, 06793-9, 38882-2, THYR, 80665-3, 68967-5 #### [facility] ([id number]) [address] [place] [address] 48807 Creatinine [Mass/Vol] 1.12 mg/dL Normal 0.70-1.20 [facility] Comment on above: Result Comment: METH OD TRACEABLE TO IDMS STANDARD Performed By: #### C BCA, PINR, 12038-6, BMP, 3040-3, 80782-1, 5643-2, LIVR, 93258-6, 10869-6, THYR, 84996-5, 85613-4 #### [facility] ([id number]) [address] [place] [address]21 GFR/1.73 sq M.predicted among non-blacks MDRD (S/P/Bld) [Vol rate/Area] 69 mL/min/{1.73_m2} Normal >59 [facility] Comment on above: Result Comment: Reported eGFR is based on the CKD-EPI 2020 equation that does not use a race coefficient. Performed By: #### C BCA, PINR, 29572-5, BMP, 3040-3, 29448-8, 5643-2, LIVR, 82565-0, 03433-0, THYR, 55799-9, 93948-7 #### [facility] ([id number]) [address] [place] [address] [place] [address] Glucose [Mass/Vol] 151 mg/dL High 65-99 [facility] Comment on above: Performed By: #### C BCA, PINR, 02207-1, BMP, 3040-3, 75412-5, 5643-2, LIVR, 99123-9, 51211-1, THYR, 52918-7, 79806-9 #### [facility] ([id number]) [address] [place] [address] 63697 Potassium [Moles/Vol] 3.6 mmol/L Normal 3.5-5.0 [facility] Comment on above: Performed By: #### C BCA, PINR, 48170-4, BMP, 3040-3, 09648-8, 5643-2, LIVR, 09555-5, 43855-5, THYR, 72908-5, 24056-8 #### [facility] ([id number]) [address] [place] [address] 63076 Protein [Mass/Vol] 6.3 g/dL Normal 6.0-8.0 [facility] Comment on above: Performed By: #### C BCA, PINR, 51622-0, BMP, 3040-3, 57001-9, 5643-2, LIVR, 10571-2, 78150-0, THYR, 15472-0, 64477-8 #### [facility] ([id number]) [address] [place] [address], [place] [address] Sodium [Moles/Vol] 133 mmol/L Low 134-146 [facility] Comment on above: Performed By: #### C BCA, PINR, 34096-5, BMP, 3040-3, 43988-9, 5643-2, LIVR, 29587-5, 84690-3, THYR, 56818-0, 99216-9 #### [facility] ([id number]) [address] [place] [address] 58225 Urea nitrogen [Mass/Vol] 31 mg/dL High 5-27 [facility] Comment on above: Performed By: #### C BCA, PINR, 66507-6, BMP, 3040-3, 82109-0, 5643-2, LIVR, 63036-6, 28531-1, THYR, 36794-9, 49211-7 #### [facility] ([id number]) [address] [place] [address] 23671 Glucose Glucometer (BldC) [M ass/Vol]on 06-29-2023 Glucose [Mass/Vol] 135 mg/dL High 65-99 [facility] Glucose [Mass/Vol] 196 mg/dL High 65-99 [facility] Glucose [Mass/Vol] 160 mg/dL High 65-99 [facility] Glucose [Mass/Vol] 216 mg/dL High 65-99 [facility] MAGNESIUMon 06-29-2023 Magnesium [Mass/Vol] 1.7 mg/dL Low 1.8-2.6 [facility] Comment on above: Performed By: #### C BCA, PINR, 46452-1, BMP, 3040-3, 78272-4, 5643-2, LIVR, 56405-7, 36686-3, THYR, 37507-1, 24371-0 #### [facility] ([id number]) [address] [place] [address] 20050 CBC AND AUTO DIFFon 06-28-19 24 ABSOLUTE BASOPHIL 0.0 X10E9/L Normal 0.0-0.2 [facility] Comment on above: Performed By: #### C BCA, PINR, 57422-0, BMP, 3040-3, 53661-5, 5643-2, LIVR, 63908-2, 04629-9, THYR, 80781-1, 93410-4 #### [facility] ([id number]) [address] [place] [address] ABSOLUTE NEUTROPHIL 2.9 X10E9/L Normal 1.5-6.6 [facility] Comment on above: Performed By: #### C BCA, PINR, 59906-5, BMP, 3040-3, 56581-3, 5643-2, LIVR, 90854-0, 26502-2, THYR, 78876-9, 75773-9 #### [facility] ([id number]) [address] [place] [address] 13868 Basophils/100 WBC (Bld) 0.5 % Normal [facility] Comment on above: Performed By: #### C BCA, PINR, 45611-9, BMP, 3040-3, 55155-8, 5643-2, LIVR, 56857-7, 29962-1, THYR, 36615-9, 60879-0 #### [facility] ([id number]) [address] [place] [address] 99520 Eosinophils (Bld) [#/Vol] 0.1 10*3/uL Normal 0.0-0.4 [facility] Comment on above: Performed By: #### C BCA, PINR, 74744-0, BMP, 3040-3, 17496-2, 5643-2, LIVR, 27409-8, 37835-6, THYR, 53109-4, 21856-8 #### [facility] ([id number]) [address] [place] [address] 08825 Eosinophils/100 WBC (Bld) 2.2 % Normal [facility] Comment on above: Performed By: #### C BCA, PINR, 56651-0, BMP, 3040-3, 39913-6, 5643-2, LIVR, 09090-8, 81611-4, THYR, 92318-1, 60803-2 #### [facility] ([id number]) [address] [place] [address] 49463 Erythrocyte distribution width (RBC) [Ratio] 15.1 % High 11.5-15.0 [facility] Comment on above: Performed By: #### C BCA, PINR, 52404-8, BMP, 3040-3, 34944-7, 5643-2, LIVR, 71336-3, 43145-9, THYR, 74729-7, 69538-6 #### [facility] ([id number]) [address] [place] [address] 43445 Hematocrit (Bld) [Volume fraction] 39.2 % Normal 39-49 [facility] Comment on above: Performed By: #### C BCA, PINR, 51718-0, BMP, 3040-3, 42158-0, 5643-2, LIVR, 37353-2, 75525-7, THYR, 82240-8, 73690-2 #### [facility] ([id number]) [address] [place] [address] 20304 Hemoglobin (Bld) [Mass/Vol] 13.5 g/dL Normal 13.0-17.0 [facility] Comment on above: Performed By: #### C BCA, PINR, 12445-7, BMP, 3040-3, 41659-8, 5643-2, LIVR, 79500-3, 43577-0, THYR, 17934-5, 68156-3 #### [facility] ([id number]) [address] [place] [address] 98442 Lymphocytes (Bld) [#/Vol] 1.6 10*3/uL Normal 1.0-3.5 [facility] Comment on above: Performed By: #### C BCA, PINR, 19227-1, BMP, 3040-3, 04689-1, 5643-2, LIVR, 62272-6, 11791-5, THYR, 54688-5, 86066-9 #### [facility] ([id number]) [address] [place] [address] 91337 Lymphocytes/100 WBC (Bld) 30.7 % Normal [facility] Comment on above: Performed By: #### C BCA, PINR, 95857-7, BMP, 3040-3, 02629-4, 5643-2, LIVR, 52644-6, 28126-5, THYR, 38917-5, 53586-1 #### [facility] ([id number]) [address] [place] [address] 00104 MCH (RBC) [Entitic mass] 28.8 pg Normal 27-34 [facility] Comment on above: Performed By: #### C BCA, PINR, 96635-2, BMP, 3040-3, 95196-8, 5643-2, LIVR, 77835-7, 19784-3, THYR, 61554-6, 84250-5 #### [facility] ([id number]) [address] [place] [address] 76074 MCHC (RBC) [Mass/Vol] 34.5 g/dL Normal 32-36 [facility] Comment on above: Performed By: #### C BCA, PINR, 98787-7, BMP, 3040-3, 32654-7, 5643-2, LIVR, 07879-1, 07121-0, THYR, 67624-9, 71406-2 #### [facility] ([id number]) [address] [place] [address] [place] [address] MCV (RBC) [Entitic vol] 84 fL Normal 80-100 [facility] Comment on above: Performed By: #### C BCA, PINR, 31270-7, BMP, 3040-3, 11055-1, 5643-2, LIVR, 92752-2, 49931-2, THYR, 65772-4, 19925-6 #### [facility] ([id number]) [address] [place] [address] 04662 Monocytes (Bld) [#/Vol] 0.5 10*3/uL Normal 0-0.9 [facility] Comment on above: Performed By: #### C BCA, PINR, 05335-0, BMP, 3040-3, 84066-7, 5643-2, LIVR, 58146-1, 31179-2, THYR, 84441-3, 40995-4 #### [facility] ([id number]) [address] [place] [address] 79606 Monocytes/100 WBC (Bld) 10.0 % Normal [facility] Comment on above: Performed By: #### C BCA, PINR, 43478-5, BMP, 3040-3, 27019-7, 5643-2, LIVR, 65807-6, 13595-9, THYR, 14224-6, 28905-1 #### [facility] ([id number]) [address] [place] [address] 16267 Neutrophils/100 WBC (Bld) 56.6 % Normal [facility] Comment on above: Performed By: #### C BCA, PINR, 88857-0, BMP, 3040-3, 62651-9, 5643-2, LIVR, 53970-8, 36956-3, THYR, 23457-4, 00718-6 #### [facility] ([id number]) [address] [place] [address] 18977 Platelet mean volume (Bld) [Entitic vol] 8.3 fL Normal 7-12 [facility] Comment on above: Performed By: #### C BCA, PINR, 70666-8, BMP, 3040-3, 04740-2, 5643-2, LIVR, 47182-2, 16521-3, THYR, 32336-6, 45257-4 #### [facility] ([id number]) [address] [place] [address] 64571 Platelets (Bld) [#/Vol] 212 10*3/uL Normal 150-450 [facility] Comment on above: Performed By: #### C BCA, PINR, 40290-4, BMP, 3040-3, 70649-5, 5643-2, LIVR, 80820-8, 93962-6, THYR, 88478-8, 50795-4 #### [facility] ([id number]) [address] [place] [address] 63093 RBC COUNT 4.69 X10E12/L Normal 4.10-5.70 [facility] Comment on above: Performed By: #### C BCA, PINR, 16285-2, BMP, 3040-3, 13965-2, 5643-2, LIVR, 31504-9, 87148-5, THYR, 67679-9, 68173-1 #### [facility] ([id number]) [address] [place] [address] [place] [address] WBC (Bld) [#/Vol] 5.1 10*3/uL Normal 4.0-11.0 [facility] Comment on above: Performed By: #### C BCA, PINR, 20280-8, BMP, 3040-3, 38633-6, 5643-2, LIVR, 07090-5, 83679-6, THYR, 13873-3, 01514-7 #### [facility] ([id number]) [address] [place] [address] [place] [address] COMPREHENSIVE METABOLIC PANE [place] 06-28-2023 Albumin [Mass/Vol] 3.4 g/dL Normal 3.2-5.3 [facility] Comment on above: Performed By: #### C BCA, PINR, 26010-8, BMP, 3040-3, 77276-1, 5643-2, LIVR, 16379-0, 06123-0, THYR, 45760-4, 56897-6 #### [facility] ([id number]) [address] [place] [address] [place] [address] ALP [Catalytic activity/Vol] 39 U/L Normal 39-130 [facility] Comment on above: Performed By: #### C BCA, PINR, 45841-8, BMP, 3040-3, 40094-7, 5643-2, LIVR, 29705-8, 48536-0, THYR, 35994-9, 46230-4 #### [facility] ([id number]) [address] [place] [address] 77681 ALT [Catalytic activity/Vol] 62 U/L High 0-40 [facility] Comment on above: Performed By: #### C BCA, PINR, 03346-8, BMP, 3040-3, 90113-5, 5643-2, LIVR, 32393-0, 96617-7, THYR, 01378-5, 25321-4 #### [facility] ([id number]) [address] [place] [address] 79447 Anion gap [Moles/Vol] 11 mmol/L Normal 5-15 [facility] Comment on above: Performed By: #### C BCA, PINR, 75259-2, BMP, 3040-3, 99523-9, 5643-2, LIVR, 20767-5, 16981-7, THYR, 12836-1, 24922-5 #### [facility] ([id number]) [address] [place] [address], [place] [address] AST [Catalytic activity/Vol] 87 U/L High 0-41 [facility] Comment on above: Performed By: #### C BCA, PINR, 12043-2, BMP, 3040-3, 52769-9, 5643-2, LIVR, 28190-1, 24582-1, THYR, 21227-6, 11587-3 #### [facility] ([id number]) [address] [place] [address] 18464 Bilirubin [Mass/Vol] 0.7 mg/dL Normal 0.3-1.2 [facility] Comment on above: Performed By: #### C BCA, PINR, 57501-2, BMP, 3040-3, 98863-9, 5643-2, LIVR, 59855-1, 49738-2, THYR, 13038-4, 61278-2 #### [facility] ([id number]) [address] [place] [address] 39474 Calcium [Mass/Vol] 8.6 mg/dL Normal 8.5-10.5 [facility] Comment on above: Performed By: #### C BCA, PINR, 15581-0, BMP, 3040-3, 24764-1, 5643-2, LIVR, 25792-9, 98211-2, THYR, 76456-6, 13356-9 #### [facility] ([id number]) [address] [place] [address] 23350 Chloride [Moles/Vol] 103 mmol/L Normal 98-109 [facility] Comment on above: Performed By: #### C BCA, PINR, 00590-3, BMP, 3040-3, 83432-5, 5643-2, LIVR, 01845-0, 74514-2, THYR, 98081-7, 00583-3 #### [facility] ([id number]) [address] [place] [address] 52803 CO2 [Moles/Vol] 21 mmol/L Low 22-32 [facility] Comment on above: Performed By: #### C BCA, PINR, 31041-9, BMP, 3040-3, 53973-8, 5643-2, LIVR, 34722-2, 86755-5, THYR, 81638-6, 62173-8 #### [facility] ([id number]) [address] [place] [address] [place] [address] Creatinine [Mass/Vol] 1.40 mg/dL High 0.70-1.20 [facility] Comment on above: Result Comment: METH OD TRACEABLE TO IDMS STANDARD Performed By: #### C BCA, PINR, 56963-8, BMP, 3040-3, 46602-7, 5643-2, LIVR, 55369-5, 93203-2, THYR, 37408-5, 46700-9 #### [facility] ([id number]) [address] [place] [address] 33367 GFR/1.73 sq M.predicted among non-blacks MDRD (S/P/Bld) [Vol rate/Area] 53 mL/min/{1.73_m2} Low >59 [facility] Comment on above: Result Comment: Reported eGFR is based on the CKD-EPI 2020 equation that does not use a race coefficient. Performed By: #### C BCA, PINR, 06207-5, BMP, 3040-3, 15678-6, 5643-2, LIVR, 82345-0, 94740-9, THYR, 59582-2, 41657-1 #### [facility] ([id number]) [address] [place] [address] 04441 Glucose [Mass/Vol] 127 mg/dL High 65-99 [facility] Comment on above: Performed By: #### C BCA, PINR, 02386-6, BMP, 3040-3, 84585-3, 5643-2, LIVR, 56095-5, 23048-4, THYR, 30072-7, 29981-9 #### [facility] ([id number]) [address] [place] [address] 17398 Potassium [Moles/Vol] 3.4 mmol/L Low 3.5-5.0 [facility] Comment on above: Performed By: #### C BCA, PINR, 51779-2, BMP, 3040-3, 72904-9, 5643-2, LIVR, 85060-3, 98850-2, THYR, 12328-4, 67946-3 #### [facility] ([id number]) [address] [place] [address] 28493 Protein [Mass/Vol] 6.6 g/dL Normal 6.0-8.0 [facility] Comment on above: Performed By: #### C BCA, PINR, 57883-8, BMP, 3040-3, 38491-2, 5643-2, LIVR, 07278-2, 03748-7, THYR, 97073-0, 05700-3 #### [facility] ([id number]) [address] [place] [address] 62119 Sodium [Moles/Vol] 135 mmol/L Normal 134-146 [facility] Comment on above: Performed By: #### C BCA, PINR, 16648-3, BMP, 3040-3, 35769-8, 5643-2, LIVR, 81938-9, 83021-2, THYR, 53112-5, 09549-6 #### [facility] ([id number]) [address] [place] [address] 63197 Urea nitrogen [Mass/Vol] 38 mg/dL High 5-27 [facility] Comment on above: Performed By: #### C BCA, PINR, 60308-8, BMP, 3040-3, 34983-1, 5643-2, LIVR, 37331-4, 93733-9, THYR, 26040-3, 15656-4 #### [facility] ([id number]) [address] [place] [address] 57460 Glucose Glucometer (BldC) [M ass/Vol]on 06-28-2023 Glucose [Mass/Vol] 132 mg/dL High 65-99 [facility] Glucose [Mass/Vol] 208 mg/dL High 65-99 [facility] Glucose [Mass/Vol] 160 mg/dL High 65-99 [facility] Glucose [Mass/Vol] 123 mg/dL High 65-99 [facility] MAGNESIUMon 06-28-2023 Magnesium [Mass/Vol] 2.1 mg/dL Normal 1.8-2.6 [facility] Comment on above: Performed By: #### C BCA, PINR, 27883-9, BMP, 3040-3, 69384-6, 5643-2, LIVR, 93251-0, 39049-7, THYR, 67639-9, 47777-1 #### [facility] ([id number]) [address] [place] [address] POTASSIUMon 06-28-2023 Potassium [Moles/Vol] 3.8 mmol/L Normal 3.5-5.0 [facility] Comment on above: Performed By: #### C BCA, PINR, 26937-1, BMP, 3040-3, 43225-5, 5643-2, LIVR, 96411-6, 19245-6, THYR, 19872-4, 68730-3 #### [facility] ([id number]) [address] [place] [address] 86853 CBC AND AUTO DIFFon 06-27-20 ABSOLUTE BASOPHIL 0.0 X10E9/L Normal 0.0-0.2 [facility] Comment on above: Performed By: #### C BCA, PINR, 96255-8, BMP, 3040-3, 34387-3, 5643-2, LIVR, 49527-7, 50110-7, THYR, 91148-9, 65129-3 #### [facility] ([id number]) [address] [place] [address] 32154 ABSOLUTE NEUTROPHIL 4.4 X10E9/L Normal 1.5-6.6 [facility] Comment on above: Performed By: #### C BCA, PINR, 24261-7, BMP, 3040-3, 65975-0, 5643-2, LIVR, 11333-2, 92230-0, THYR, 80143-4, 87673-4 #### [facility] ([id number]) [address] [place] [address] 79462 Basophils/100 WBC (Bld) 0.3 % Normal [facility] Comment on above: Performed By: #### C BCA, PINR, 94529-7, BMP, 3040-3, 35766-0, 5643-2, LIVR, 96124-0, 46134-8, THYR, 25464-3, 86523-9 #### [facility] ([id number]) [address] [place] [address] 89678 Eosinophils (Bld) [#/Vol] 0.0 10*3/uL Normal 0.0-0.4 [facility] Comment on above: Performed By: #### C BCA, PINR, 78299-9, BMP, 3040-3, 63825-0, 5643-2, LIVR, 24461-2, 91007-7, THYR, 31660-7, 05140-9 #### [facility] ([id number]) [address] [place] [address] 42727 Eosinophils/100 WBC (Bld) 0.1 % Normal [facility] Comment on above: Performed By: #### C BCA, PINR, 87379-8, BMP, 3040-3, 99696-9, 5643-2, LIVR, 20066-5, 34112-5, THYR, 48631-9, 86933-9 #### [facility] ([id number]) [address] [place] [address] [place] [address] Erythrocyte distribution width (RBC) [Ratio] 15.2 % High 11.5-15.0 [facility] Comment on above: Performed By: #### C BCA, PINR, 12520-1, BMP, 3040-3, 48298-8, 5643-2, LIVR, 59873-3, 14618-6, THYR, 25009-9, 08297-4 #### [facility] ([id number]) [address] [place] [address] 22514 Hematocrit (Bld) [Volume fraction] 40.7 % Normal 39-49 [facility] Comment on above: Performed By: #### C BCA, PINR, 36964-8, BMP, 3040-3, 66493-7, 5643-2, LIVR, 82632-4, 46238-5, THYR, 85186-2, 43038-6 #### [facility] ([id number]) [address] [place] [address] 10182 Hemoglobin (Bld) [Mass/Vol] 14.2 g/dL Normal 13.0-17.0 [facility] Comment on above: Performed By: #### C BCA, PINR, 28853-0, BMP, 3040-3, 36167-4, 5643-2, LIVR, 88672-7, 60826-0, THYR, 53945-0, 76648-6 #### [facility] ([id number]) [address] [place] [address] 71218 Lymphocytes (Bld) [#/Vol] 0.8 10*3/uL Low 1.0-3.5 [facility] Comment on above: Performed By: #### C BCA, PINR, 62735-3, BMP, 3040-3, 12338-6, 5643-2, LIVR, 72144-0, 11741-1, THYR, 33899-7, 99588-9 #### [facility] ([id number]) [address] [place] [address] 94054 Lymphocytes/100 WBC (Bld) 13.3 % Normal [facility] Comment on above: Performed By: #### C BCA, PINR, 21987-2, BMP, 3040-3, 04598-4, 5643-2, LIVR, 70547-0, 25734-8, THYR, 29625-1, 66506-1 #### [facility] ([id number]) [address] [place] [address] 15452 MCH (RBC) [Entitic mass] 29.2 pg Normal 27-34 [facility] Comment on above: Performed By: #### C BCA, PINR, 97044-7, BMP, 3040-3, 57721-9, 5643-2, LIVR, 71289-6, 12194-9, THYR, 88700-3, 43897-8 #### [facility] ([id number]) [address] [place] [address] 65802 MCHC (RBC) [Mass/Vol] 35.0 g/dL Normal 32-36 [facility] Comment on above: Performed By: #### C BCA, PINR, 65325-8, BMP, 3040-3, 99400-1, 5643-2, LIVR, 70351-8, 59362-9, THYR, 61265-8, 13230-6 #### [facility] ([id number]) [address] [place] [address] 42391 MCV (RBC) [Entitic vol] 84 fL Normal 80-100 [facility] Comment on above: Performed By: #### C BCA, PINR, 22806-6, BMP, 3040-3, 95824-1, 5643-2, LIVR, 70201-0, 22211-1, THYR, 79332-3, 27599-0 #### [facility] ([id number]) [address] [place] [address] 09339 Monocytes (Bld) [#/Vol] 0.8 10*3/uL Normal 0-0.9 [facility] Comment on above: Performed By: #### C BCA, PINR, 07356-8, BMP, 3040-3, 18859-3, 5643-2, LIVR, 87392-3, 12597-8, THYR, 55025-9, 52298-8 #### [facility] ([id number]) [address] [place] [address] 73949 Monocytes/100 WBC (Bld) 12.8 % Normal [facility] Comment on above: Performed By: #### C BCA, PINR, 53291-2, BMP, 3040-3, 37820-3, 5643-2, LIVR, 28860-5, 44468-7, THYR, 48350-7, 03676-7 #### [facility] ([id number]) [address] [place] [address] 12191 Neutrophils/100 WBC (Bld) 73.5 % Normal [facility] Comment on above: Performed By: #### C BCA, PINR, 09971-7, BMP, 3040-3, 27016-6, 5643-2, LIVR, 11909-1, 20423-8, THYR, 46656-7, 49645-4 #### [facility] ([id number]) [address] [place] [address] 03465 Platelet mean volume (Bld) [Entitic vol] 8.1 fL Normal 7-12 [facility] Comment on above: Performed By: #### C BCA, PINR, 29073-5, BMP, 3040-3, 64342-0, 5643-2, LIVR, 92811-2, 26795-8, THYR, 95479-5, 24588-7 #### [facility] ([id number]) [address] [place] [address] 65785 Platelets (Bld) [#/Vol] 226 10*3/uL Normal 150-450 [facility] Comment on above: Performed By: #### C BCA, PINR, 97834-9, BMP, 3040-3, 85004-3, 5643-2, LIVR, 46866-3, 17545-4, THYR, 29909-3, 59933-5 #### [facility] ([id number]) [address] [place] [address] 39122 RBC COUNT 4.87 X10E12/L Normal 4.10-5.70 [facility] Comment on above: Performed By: #### C BCA, PINR, 96875-7, BMP, 3040-3, 77655-0, 5643-2, LIVR, 43084-7, 75503-8, THYR, 08616-9, 51138-4 #### [facility] ([id number]) [address] [place] [address] 80423 WBC (Bld) [#/Vol] 6.0 10*3/uL Normal 4.0-11.0 [facility] Comment on above: Performed By: #### C BCA, PINR, 31895-0, BMP, 3040-3, 27422-8, 5643-2, LIVR, 33423-1, 31772-8, THYR, 15113-3, 11146-9 #### [facility] ([id number]) [address] [place] [address] 08086 COMPREHENSIVE METABOLIC PANE [facility] 06-27-2023 Albumin [Mass/Vol] 3.5 g/dL Normal 3.2-5.3 [facility] Comment on above: Performed By: #### C BCA, PINR, 91603-2, BMP, 3040-3, 07995-3, 5643-2, LIVR, 28113-6, 94921-8, THYR, 90359-6, 23894-3 #### [facility] ([id number]) [address] [place] [address] 39460 ALP [Catalytic activity/Vol] 43 U/L Normal 39-130 [facility] Comment on above: Performed By: #### C BCA, PINR, 95478-7, BMP, 3040-3, 13305-8, 5643-2, LIVR, 45510-6, 32694-3, THYR, 11344-6, 37042-9 #### [facility] ([id number]) [address] [place] [address] 54254 ALT [Catalytic activity/Vol] 40 U/L Normal 0-40 [facility] Comment on above: Performed By: #### C BCA, PINR, 85428-6, BMP, 3040-3, 41154-4, 5643-2, LIVR, 60428-7, 55005-7, THYR, 29757-3, 66051-5 #### [facility] ([id number]) [address] [place] [address] 89642 Anion gap [Moles/Vol] 8 mmol/L Normal 5-15 [facility] Comment on above: Performed By: #### C BCA, PINR, 69682-1, BMP, 3040-3, 64521-1, 5643-2, LIVR, 23950-8, 67603-2, THYR, 01771-5, 43325-5 #### [facility] ([id number]) [address] [place] [address] 81194 AST [Catalytic activity/Vol] 63 U/L High 0-41 [facility] Comment on above: Performed By: #### C BCA, PINR, 95238-1, BMP, 3040-3, 99244-6, 5643-2, LIVR, 41900-4, 40920-9, THYR, 66374-9, 90452-7 #### [facility] ([id number]) [address] [place] [address], [place] [address] Bilirubin [Mass/Vol] 0.9 mg/dL Normal 0.3-1.2 [facility] Comment on above: Performed By: #### C BCA, PINR, 96882-0, BMP, 3040-3, 78723-3, 5643-2, LIVR, 66539-7, 79638-9, THYR, 52160-7, 92061-6 #### [facility] ([id number]) [address] [place] [address] Calcium [Mass/Vol] 8.7 mg/dL Normal 8.5-10.5 [facility] Comment on above: Performed By: #### C BCA, PINR, 83623-7, BMP, 3040-3, 48512-3, 5643-2, LIVR, 81886-9, 41864-1, THYR, 94490-4, 42211-5 #### [facility] ([id number]) [address] [place] [address] Chloride [Moles/Vol] 106 mmol/L Normal 98-109 [facility] Comment on above: Performed By: #### C BCA, PINR, 93402-0, BMP, 3040-3, 91899-0, 5643-2, LIVR, 67768-5, 65749-0, THYR, 44030-7, 06993-9 #### [facility] ([id number]) [address] [place] [address] CO2 [Moles/Vol] 23 mmol/L Normal 22-32 [facility] Comment on above: Performed By: #### C BCA, PINR, 51995-7, BMP, 3040-3, 34007-1, 5643-2, LIVR, 72771-6, 48238-1, THYR, 02358-2, 44966-9 #### [facility] ([id number]) [address] [place] [address] [place] [address] Creatinine [Mass/Vol] 1.22 mg/dL High 0.70-1.20 [facility] Comment on above: Result Comment: METH OD TRACEABLE TO IDMS STANDARD Performed By: #### C BCA, PINR, 51492-8, BMP, 3040-3, 11201-4, 5643-2, LIVR, 11682-5, 56512-9, THYR, 16799-0, 18325-6 #### [facility] ([id number]) [address] [place] [address] GFR/1.73 sq M.predicted among non-blacks MDRD (S/P/Bld) [Vol rate/Area] 62 mL/min/{1.73_m2} Normal >59 [facility] Comment on above: Result Comment: Reported eGFR is based on the CKD-EPI 2020 equation that does not use a race coefficient. Performed By: #### C BCA, PINR, 83210-4, BMP, 3040-3, 17727-7, 5643-2, LIVR, 34267-1, 05194-0, THYR, 46332-7, 98079-7 #### [facility] ([id number]) [address] [place] [address] Glucose [Mass/Vol] 153 mg/dL High 65-99 [facility] Comment on above: Performed By: #### C BCA, PINR, 00073-1, BMP, 3040-3, 58078-1, 5643-2, LIVR, 51394-7, 43600-7, THYR, 46265-6, 97099-6 #### [facility] ([id number]) [address] [place] [address] Potassium [Moles/Vol] 3.8 mmol/L Normal 3.5-5.0 [facility] Comment on above: Performed By: #### C BCA, PINR, 12421-9, BMP, 3040-3, 29914-7, 5643-2, LIVR, 50431-4, 69348-6, THYR, 24752-1, 39199-6 #### [facility] ([id number]) [address] [place] [address] Protein [Mass/Vol] 6.9 g/dL Normal 6.0-8.0 [facility] Comment on above: Performed By: #### C BCA, PINR, 53620-8, BMP, 3040-3, 78901-2, 5643-2, LIVR, 84764-3, 50775-6, THYR, 47175-3, 86929-0 #### [facility] ([id number]) [address] [place] [address] Sodium [Moles/Vol] 137 mmol/L Normal 134-146 [facility] Comment on above: Performed By: #### C BCA, PINR, 63005-2, BMP, 3040-3, 03471-6, 5643-2, LIVR, 40883-5, 09278-7, THYR, 56160-0, 35918-0 #### [facility] ([id number]) [address] [place] [address] Urea nitrogen [Mass/Vol] 30 mg/dL High 5-27 [facility] Comment on above: Performed By: #### C BCA, PINR, 19343-8, BMP, 3040-3, 11370-2, 5643-2, LIVR, 69759-5, 80013-4, THYR, 19814-8, 98014-8 #### [facility] ([id number]) [address] [place] [address] Glucose Glucometer (BldC) [M ass/Vol]on 06-27-2023 Glucose [Mass/Vol] 176 mg/dL High 65-99 [facility] Glucose [Mass/Vol] 144 mg/dL High 65-99 [facility] Glucose [Mass/Vol] 218 mg/dL High 65-99 [facility] Glucose [Mass/Vol] 138 mg/dL High 65-99 [facility] Glucose [Mass/Vol] 149 mg/dL High 65-99 [facility] HGB A1C (GLYCO-HGB)on 2022 Glucose [Mass/Vol] 160 mg/dL Normal [facility] Comment on above: Performed By: #### C BCA, PINR, 42815-6, BMP, 3040-3, 30823-0, 5643-2, LIVR, 14258-5, 67374-5, THYR, 67227-5, 18402-9 #### [facility] ([id number]) [address] [place] [address] HbA1c (Bld) [Mass fraction] 7.2 % High 4.4-5.6 [facility] Comment on above: Result Comment: NOTE ADA Guidelines Result HgbA1c Normal : less than 5.7 % Prediabetes : 5.7 % to 6.4 % Diabetes : > 6.4 % Use with caution in patients with abnormal hemoglobin variants as the half-life of red blood cells and in vivo glycation rates are affected. Performed By: #### C BCA, PINR, 32729-5, BMP, 3040-3, 46814-3, 5643-2, LIVR, 20037-3, 57460-6, THYR, 85365-3, 16579-9 #### [facility] ([id number]) [address] [place] [address] MAGNESIUMon 06-27-2023 Magnesium [Mass/Vol] 2.2 mg/dL Normal 1.8-2.6 [facility] Comment on above: Performed By: #### C BCA, PINR, 42405-4, BMP, 3040-3, 06358-6, 5643-2, LIVR, 20554-0, 72333-7, THYR, 94832-4, 81104-0 #### [facility] ([id number]) [address] [place] [address] Prostate specific Ag [Mass/V ol]on 06-27-2023 PSA SCREEN 1.78 ng/mL Normal 0.00-4.00 [facility] Comment on above: Result Comment: The method used for this test is [employer] DXI chemiluminescent immunoassay. Values obtained by different assay methods cannot be used interchangeably. Performed By: #### C BCA, PINR, 41289-6, BMP, 3040-3, 72884-1, 5643-2, LIVR, 22069-4, 69413-6, THYR, 71116-4, 38538-6 #### [facility] ([id number]) [address] [place] [address] 62034 BASIC METABOLIC PANLon 06-26 Anion gap [Moles/Vol] 6 mmol/L Normal 5-15 [facility] Comment on above: Performed By: #### C BCA, PINR, 56989-5, BMP, 3040-3, 90009-4, 5643-2, LIVR, 42202-2, 76127-8, THYR, 87832-3, 42284-3 #### [facility] ([id number]) [address] [place] [address] 81252 Calcium [Mass/Vol] 8.6 mg/dL Normal 8.5-10.5 [facility] Comment on above: Performed By: #### C BCA, PINR, 56616-7, BMP, 3040-3, 41343-4, 5643-2, LIVR, 03348-4, 01831-8, THYR, 51884-3, 74254-7 #### [facility] ([id number]) [address] [place] [address] 08829 Chloride [Moles/Vol] 104 mmol/L Normal 98-109 [facility] Comment on above: Performed By: #### C BCA, PINR, 20147-9, BMP, 3040-3, 04804-6, 5643-2, LIVR, 92145-5, 46869-1, THYR, 64681-2, 45114-1 #### [facility] ([id number]) [address] [place] [address] 96917 CO2 [Moles/Vol] 25 mmol/L Normal 22-32 [facility] Comment on above: Performed By: #### C BCA, PINR, 75922-8, BMP, 3040-3, 93705-2, 5643-2, LIVR, 51698-4, 74766-1, THYR, 24731-8, 61382-5 #### [facility] ([id number]) [address] [place] [address] 56044 Creatinine [Mass/Vol] 1.07 mg/dL Normal 0.70-1.20 [facility] Comment on above: Result Comment: METH OD TRACEABLE TO IDMS STANDARD Performed By: #### C BCA, PINR, 39827-1, BMP, 3040-3, 61585-6, 5643-2, LIVR, 82631-0, 20224-8, THYR, 03161-2, 51231-9 #### [facility] ([id number]) [address] [place] [address] 52341 GFR/1.73 sq M.predicted among non-blacks MDRD (S/P/Bld) [Vol rate/Area] 73 mL/min/{1.73_m2} Normal >59 [facility] Comment on above: Result Comment: Reported eGFR is based on the CKD-EPI 2020 equation that does not use a race coefficient. Performed By: #### C BCA, PINR, 55262-5, BMP, 3040-3, 39836-2, 5643-2, LIVR, 80989-5, 47830-7, THYR, 55247-2, 32428-1 #### [facility] ([id number]) [address] [place] [address] 96268 Glucose [Mass/Vol] 129 mg/dL High 65-99 [facility] Comment on above: Performed By: #### C BCA, PINR, 27801-6, BMP, 3040-3, 90823-9, 5643-2, LIVR, 85171-7, 41533-1, THYR, 58360-8, 11339-4 #### [facility] ([id number]) [address] [place] [address] 57496 Potassium [Moles/Vol] 3.8 mmol/L Normal 3.5-5.0 [facility] Comment on above: Performed By: #### C BCA, PINR, 25473-5, BMP, 3040-3, 32486-8, 5643-2, LIVR, 21508-2, 22825-4, THYR, 87386-8, 62815-3 #### [facility] ([id number]) [address] [place] [address] 13883 Sodium [Moles/Vol] 135 mmol/L Normal 134-146 [facility] Comment on above: Performed By: #### C BCA, PINR, 33369-3, BMP, 3040-3, 12889-2, 5643-2, LIVR, 75745-4, 36096-9, THYR, 11309-7, 81173-2 #### [facility] ([id number]) [address] [place] [address] 36171 Urea nitrogen [Mass/Vol] 23 mg/dL Normal 5-27 [facility] Comment on above: Performed By: #### C BCA, PINR, 60109-5, BMP, 3040-3, 50902-1, 5643-2, LIVR, 36193-9, 56089-0, THYR, 67977-3, 31075-0 #### [facility] ([id number]) [address] [place] [address] 55377 CBC AND AUTO DIFFon 06-26-20 23 ABSOLUTE BASOPHIL 0.0 X10E9/L Normal 0.0-0.2 [facility] Comment on above: Performed By: #### C BCA, PINR, 88378-3, BMP, 3040-3, 54797-6, 5643-2, LIVR, 69643-0, 68173-4, THYR, 93998-1, 44433-1 #### [facility] ([id number]) [address] [place] [address] 52999 ABSOLUTE NEUTROPHIL 5.3 X10E9/L Normal 1.5-6.6 [facility] Comment on above: Performed By: #### C BCA, PINR, 18613-1, BMP, 3040-3, 36723-2, 5643-2, LIVR, 20383-0, 10371-1, THYR, 53030-7, 45223-7 #### [facility] ([id number]) [address] [place] [address] 32950 Basophils/100 WBC (Bld) 0.5 % Normal [facility] Comment on above: Performed By: #### C BCA, PINR, 65299-9, BMP, 3040-3, 14310-2, 5643-2, LIVR, 80257-8, 73319-3, THYR, 20101-6, 26408-5 #### [facility] ([id number]) [address] [place] [address] 58779 Eosinophils (Bld) [#/Vol] 0.0 10*3/uL Normal 0.0-0.4 [facility] Comment on above: Performed By: #### C BCA, PINR, 33109-5, BMP, 3040-3, 24968-8, 5643-2, LIVR, 64896-4, 87691-3, THYR, 86027-1, 41301-3 #### [facility] ([id number]) [address] [place] [address] 53447 Eosinophils/100 WBC (Bld) 0.1 % Normal [facility] Comment on above: Performed By: #### C BCA, PINR, 58942-9, BMP, 3040-3, 23169-0, 5643-2, LIVR, 00089-8, 69817-2, THYR, 34050-9, 88798-2 #### [facility] ([id number]) [address] [place] [address] Erythrocyte distribution width (RBC) [Ratio] 15.3 % High 11.5-15.0 [facility] Comment on above: Performed By: #### C BCA, PINR, 80234-9, BMP, 3040-3, 35158-4, 5643-2, LIVR, 78965-5, 38289-7, THYR, 65902-8, 43231-4 #### [facility] ([id number]) [address] [place] [address] 21865 Hematocrit (Bld) [Volume fraction] 37.7 % Low 39-49 [facility] Comment on above: Performed By: #### C BCA, PINR, 33782-1, BMP, 3040-3, 28267-9, 5643-2, LIVR, 64955-1, 40657-3, THYR, 57909-4, 44134-3 #### [facility] ([id number]) [address] [place] [address] 19259 Hemoglobin (Bld) [Mass/Vol] 13.1 g/dL Normal 13.0-17.0 [facility] Comment on above: Performed By: #### C BCA, PINR, 57275-6, BMP, 3040-3, 53464-6, 5643-2, LIVR, 97021-1, 13141-4, THYR, 94986-8, 56169-9 #### [facility] ([id number]) [address] [place] [address] 25228 Lymphocytes (Bld) [#/Vol] 0.4 10*3/uL Low 1.0-3.5 [facility] Comment on above: Performed By: #### C BCA, PINR, 86593-2, BMP, 3040-3, 62515-8, 5643-2, LIVR, 18870-8, 30882-7, THYR, 75526-3, 97199-8 #### [facility] ([id number]) [address] [place] [address] 67642 Lymphocytes/100 WBC (Bld) 6.7 % Normal [facility] Comment on above: Performed By: #### C BCA, PINR, 71128-2, BMP, 3040-3, 21181-0, 5643-2, LIVR, 10296-5, 76394-9, THYR, 72611-5, 93960-4 #### [facility] ([id number]) [address] [place] [address] 15744 MCH (RBC) [Entitic mass] 29.1 pg Normal 27-34 [facility] Comment on above: Performed By: #### C BCA, PINR, 21421-9, BMP, 3040-3, 09893-1, 5643-2, LIVR, 91511-6, 34074-8, THYR, 32932-0, 31646-6 #### [facility] ([id number]) [address] [place] [address] 17068 MCHC (RBC) [Mass/Vol] 34.8 g/dL Normal 32-36 [facility] Comment on above: Performed By: #### C BCA, PINR, 00097-7, BMP, 3040-3, 92092-9, 5643-2, LIVR, 82621-5, 04910-5, THYR, 51224-7, 28944-1 #### [facility] ([id number]) [address] [place] [address] 44473 MCV (RBC) [Entitic vol] 84 fL Normal 80-100 [facility] Comment on above: Performed By: #### C BCA, PINR, 38971-1, BMP, 3040-3, 05266-2, 5643-2, LIVR, 25328-4, 29236-8, THYR, 35231-2, 05876-7 #### [facility] ([id number]) [address] [place] [address] 11518 Monocytes (Bld) [#/Vol] 0.7 10*3/uL Normal 0-0.9 [facility] Comment on above: Performed By: #### C BCA, PINR, 98272-3, BMP, 3040-3, 86168-2, 5643-2, LIVR, 66410-5, 32936-1, THYR, 81569-4, 31879-1 #### [facility] ([id number]) [address] [place] [address] 46432 Monocytes/100 WBC (Bld) 10.7 % Normal [facility] Comment on above: Performed By: #### C BCA, PINR, 26969-7, BMP, 3040-3, 39143-5, 5643-2, LIVR, 66765-4, 29808-6, THYR, 50964-8, 34849-1 #### [facility] ([id number]) [address] [place] [address] 03819 Neutrophils/100 WBC (Bld) 82.0 % Normal [facility] Comment on above: Performed By: #### C BCA, PINR, 88027-7, BMP, 3040-3, 90567-9, 5643-2, LIVR, 06852-4, 20968-4, THYR, 86859-1, 30415-0 #### [facility] ([id number]) [address] [place] [address] [place] [address] Platelet mean volume (Bld) [Entitic vol] 7.5 fL Normal 7-12 [facility] Comment on above: Performed By: #### C BCA, PINR, 56321-8, BMP, 3040-3, 08178-9, 5643-2, LIVR, 34412-7, 98506-7, THYR, 25809-3, 26596-0 #### [facility] ([id number]) [address] [place] [address] 09159 Platelets (Bld) [#/Vol] 215 10*3/uL Normal 150-450 [facility] Comment on above: Performed By: #### C BCA, PINR, 33288-0, BMP, 3040-3, 44970-7, 5643-2, LIVR, 02610-5, 30225-8, THYR, 35757-6, 19415-1 #### [facility] ([id number]) [address] [place] [address] 32842 RBC COUNT 4.51 X10E12/L Normal 4.10-5.70 [facility] Comment on above: Performed By: #### C BCA, PINR, 00293-6, BMP, 3040-3, 39605-8, 5643-2, LIVR, 71420-0, 02618-5, THYR, 10397-0, 68120-8 #### [facility] ([id number]) [address] [place] [address] 33762 WBC (Bld) [#/Vol] 6.4 10*3/uL Normal 4.0-11.0 [facility] Comment on above: Performed By: #### C BCA, PINR, 58699-5, BMP, 3040-3, 08851-0, 5643-2, LIVR, 40084-4, 00597-7, THYR, 07330-2, 63652-9 #### [facility] ([id number]) [address] [place] [address] BRAIN WO CONTon 3 CT BRAIN [...] Todd MD on 06/26/2023 2:19 AM Normal [facility] ETHANOLon 06-26-2023 Ethanol [Mass/Vol] mg/dL Normal 0.00-0.08 [facility] Comment on above: Result Comment: This report is intended for use in clinical monitoring or management of patients. Performed By: #### C BCA, PINR, 03414-1, BMP, 3040-3, 81862-4, 5643-2, LIVR, 79864-0, 26666-7, THYR, 61656-1, 71421-1 #### [facility] ([id number]) [address] [place] [address] 42905 Fibrin D-dimer DDU (PPP) [Ma ss/Vol]on 06-26-2023 D DIMER 220 ng/mL DDU Normal <255 [facility] Comment on above: Result Comment: Results <255 ng/mL DDU: The presence of a VTE can safely be excluded with a negative D-Dimer result and Wells score. A negative result doesn't exclude the possibility of DIC. The test be repeated along with other diagnostic tests if the patient's symptoms persist or worsen. [email or web address] Performed By: #### C BCA, PINR, 93816-1, BMP, 3040-3, 04355-4, 5643-2, LIVR, 20413-0, 03715-4, THYR, 00118-9, 44378-0 #### [facility] ([id number]) [address] [place] [address] Glucose Glucometer (BldC) [M ass/Vol]on 06-26-2023 Glucose [Mass/Vol] 114 mg/dL High 65-99 [facility] Glucose [Mass/Vol] 159 mg/dL High 65-99 [facility] Glucose [Mass/Vol] 214 mg/dL High 65-99 [facility] LIPASEon 06-26-2023 Lipase [Catalytic activity/Vol] 27 U/L Normal 17-40 [facility] Comment on above: Performed By: #### C BCA, PINR, 85950-0, BMP, 3040-3, 45946-0, 5643-2, LIVR, 11606-1, 43363-3, THYR, 56632-7, 68475-4 #### [facility] ([id number]) [address] [place] [address] 32090 LIVER PANELon 06-26-2023 Albumin [Mass/Vol] 4.0 g/dL Normal 3.2-5.3 [facility] Comment on above: Performed By: #### C BCA, PINR, 64677-2, BMP, 3040-3, 53991-6, 5643-2, LIVR, 54349-1, 21604-2, THYR, 70836-9, 85266-1 #### [facility] ([id number]) [address] [place] [address] 39055 ALP [Catalytic activity/Vol] 46 U/L Normal 39-130 [facility] Comment on above: Performed By: #### C BCA, PINR, 82675-5, BMP, 3040-3, 60493-1, 5643-2, LIVR, 89491-8, 99627-6, THYR, 66363-6, 51045-6 #### [facility] ([id number]) [address] [place] [address] 82214 ALT [Catalytic activity/Vol] 30 U/L Normal 0-40 [facility] Comment on above: Performed By: #### C BCA, PINR, 72628-5, BMP, 3040-3, 87858-1, 5643-2, LIVR, 26863-4, 25756-5, THYR, 54744-8, 88428-5 #### [facility] ([id number]) [address] [place] [address] [place] [address] AST [Catalytic activity/Vol] 58 U/L High 0-41 [facility] Comment on above: Performed By: #### C BCA, PINR, 88819-1, BMP, 3040-3, 57727-7, 5643-2, LIVR, 39585-8, 27376-7, THYR, 69072-3, 72457-5 #### [facility] ([id number]) [address] [place] [address] 53700 Bilirubin [Mass/Vol] 1.2 mg/dL Normal 0.3-1.2 [facility] Comment on above: Performed By: #### C BCA, PINR, 22494-7, BMP, 3040-3, 33959-1, 5643-2, LIVR, 52087-2, 63696-8, THYR, 90483-3, 60144-2 #### [facility] ([id number]) [address] [place] [address] [place] [address] Bilirubin.direct [Mass/Vol] 0.2 mg/dL Normal 0.0-0.4 [facility] Comment on above: Performed By: #### C BCA, PINR, 80185-2, BMP, 3040-3, 73313-7, 5643-2, LIVR, 82167-9, 16549-1, THYR, 89666-0, 34140-9 #### [facility] ([id number]) [address] [place] [address], [place] [address] Protein [Mass/Vol] 7.0 g/dL Normal 6.0-8.0 [facility] Comment on above: Performed By: #### C BCA, PINR, 83982-6, BMP, 3040-3, 85994-0, 5643-2, LIVR, 14027-9, 81743-4, THYR, 42262-6, 87755-4 #### [facility] ([id number]) [address] [place] [address] 66653 Lactate (P zane) [Moles/Vol]o n 06-26-2023 LACTATE W/REFLEX 1.3 mmol/L Normal 0.4-2.0 [facility] Comment on above: Result Comment: Result did not trigger repeat Lactate, re-order if needed. Performed By: #### C BCA, PINR, 21669-9, BMP, 3040-3, 73046-8, 5643-2, LIVR, 57341-3, 15711-2, THYR, 61452-7, 39500-7 #### [facility] ([id number]) [address] [place] [address] 19600 MAGNESIUMon 06-26-2023 Magnesium [Mass/Vol] 1.7 mg/dL Low 1.8-2.6 [facility] Comment on above: Performed By: #### C BCA, PINR, 40365-3, BMP, 3040-3, 13564-0, 5643-2, LIVR, 70933-3, 09938-3, THYR, 13165-0, 61493-4 #### [facility] ([id number]) [address] [place] [address] 87108 Natriuretic peptide B [Mass/ Vol]on 06-26-2023 Natriuretic peptide B (Bld) [Mass/Vol] 142 pg/mL High <100.0 [facility] Comment on above: Performed By: #### C BCA, PINR, 80845-8, BMP, 3040-3, 51957-9, 5643-2, LIVR, 78247-5, 41087-7, THYR, 96904-5, 64146-4 #### [facility] ([id number]) [address] [place] [address] 97845 POTASSIUMon 06-26-2023 Potassium [Moles/Vol] 3.7 mmol/L Normal 3.5-5.0 [facility] Comment on above: Performed By: #### C BCA, PINR, 71345-6, BMP, 3040-3, 80095-3, 5643-2, LIVR, 65191-0, 62149-7, THYR, 71266-0, 92175-6 #### [facility] ([id number]) [address] [place] [address] 61363 PROTIME AND INRon 06-26-2023 INR Coag (PPP) [Relative time] 1.2 {INR} High 0.8-1.1 [facility] Comment on above: Performed By: #### C BCA, PINR, 70216-0, BMP, 3040-3, 11796-6, 5643-2, LIVR, 97739-9, 78949-8, THYR, 86852-3, 99639-0 #### [facility] ([id number]) [address] [place] [address] 88933 PT Coag (PPP) [Time] 14.0 s High 9.8-13.2 [facility] Comment on above: Result Comment: NEW REFERENCE RANGE Performed By: #### C BCA, PINR, 45487-2, BMP, 3040-3, 52484-4, 5643-2, LIVR, 90948-3, 51835-1, THYR, 79969-8, 27050-4 #### [facility] ([id number]) [address] [place] [address] 42734 Procalcitonin IA [Mass/Vol]o n 06-26-2023 PROCALCITONIN 0.07 ng/mL High <0.05 [facility] Comment on above: Result Comment: NOTE <0.50 ng/mL - Low risk of severe sepsis and/or septic shock. <2.00 ng/mL - Recommend retesting within 6-24 hours. >2.00 ng/mL - High risk of sepsis and/or septic shock. Performed By: #### C BCA, PINR, 22871-9, BMP, 3040-3, 31889-7, 5643-2, LIVR, 10114-8, 43098-5, THYR, 07456-4, 84131-6 #### [facility] ([id number]) [address] [place] [address], [place] [address] SARS/FLU A+B/RSV by NAAT/Mol ecularon 06-26-2023 SARS/FLU [...] operators who are performing tests using either [employer] or [employer] systems and is limited to laboratories that [...] specimen repeat. Fact Sheet for Healthcare Providers: https://www.[facility].gov/m edia/493255/download Fact Sheet for Patients: https://www.fda.gov/m edia/847094/download Normal [facility] Comment on above: Performed By: #### C BCA, PINR, 54755-5, BMP, 3040-3, 61100-7, 5643-2, LIVR, 72918-6, 08199-3, THYR, 29144-5, 61150-1 #### [facility] ([id number]) [address] [place] [address] 73078 THYROID PROFILEon 06-26-2023 Free T4 [Mass/Vol] 0.95 ng/dL Normal 0.61-1.60 [facility] Comment on above: Performed By: #### C BCA, PINR, 28758-5, BMP, 3040-3, 55211-6, 5643-2, LIVR, 67036-4, 39195-0, THYR, 75728-2, 82078-8 #### [facility] ([id number]) [address] [place] [address] 20043 TSH 1.81 uIU/mL Normal 0.49-4.67 [facility] Comment on above: Performed By: #### C BCA, PINR, 74203-4, BMP, 3040-3, 51176-6, 5643-2, LIVR, 05324-3, 29998-4, THYR, 73290-7, 12586-6 #### [facility] ([id number]) [address] [place] [address] 86211 TROPONIN Ion 06-26-2023 Troponin I.cardiac [Mass/Vol] 0.03 ng/mL Normal 0.00-0.04 [facility] Comment on above: Performed By: #### C BCA, PINR, 07932-2, BMP, 3040-3, 80384-5, 5643-2, LIVR, 71199-5, 33127-5, THYR, 90116-9, 05259-8 #### [facility] ([id number]) [address] [place] [address] [place] [address] URINE CULTUREon 06-26-2023 Bacteria identified Cx Nom (U) CULTURE RESULTS 10-50,000 ORGANISMS/mL NORMAL UROGENITAL POLO Normal [facility] Comment on above: Performed By: #### C BCA, PINR, 25161-9, BMP, 3040-3, 19832-4, 5643-2, LIVR, 26946-9, 02562-2, THYR, 32803-2, 86362-0 #### [facility] ([id number]) [address] [place] [address] [place] [address] URN MACROSCOPIC NURon 2022 BILIRUBIN TORRES Small Abnormal NEG [facility] Comment on above: Performed By: #### C BCA, PINR, 13833-7, BMP, 3040-3, 49345-5, 5643-2, LIVR, 81485-3, 10601-6, THYR, 78225-2, 97833-2 #### [facility] ([id number]) [address] [place] [address], [place] [address] BLOOD/HGB TORRES Large Abnormal NEG [facility] Comment on above: Performed By: #### C BCA, PINR, 91675-1, BMP, 3040-3, 08034-6, 5643-2, LIVR, 25077-5, 74498-7, THYR, 48355-6, 73382-8 #### [facility] ([id number]) [address] [place] [address] [place] [address] GLUCOSE TORRES 100 mg/dL Abnormal NEG [facility] Comment on above: Performed By: #### C BCA, PINR, 28307-1, BMP, 3040-3, 88200-1, 5643-2, LIVR, 85555-5, 23605-7, THYR, 80032-0, 46902-3 #### [facility] ([id number]) [address] [place] [address] [place] [address] KETONES TORRES 15 mg/dL Abnormal NEG [facility] Comment on above: Performed By: #### C BCA, PINR, 30257-7, BMP, 3040-3, 63834-6, 5643-2, LIVR, 45714-2, 09931-7, THYR, 29264-0, 56094-2 #### [facility] ([id number]) [address] [place] [address] [place] [address] LEUKOCYTE ESTERASE TORRES Negative Normal NEG Pr [facility] Comment on above: Performed By: #### C BCA, PINR, 63485-7, BMP, 3040-3, 02188-4, 5643-2, LIVR, 48561-6, 48697-6, THYR, 17923-1, 53648-7 #### [facility] ([id number]) [address] [place] [address] [place] [address] NITRITE TORRES Negative Normal NEG [facility] Comment on above: Performed By: #### C BCA, PINR, 96903-2, BMP, 3040-3, 58329-0, 5643-2, LIVR, 45039-1, 21336-6, THYR, 57194-8, 07312-7 #### [facility] ([id number]) [address] [place] [address] PH TORRSE 5.5 Normal 5.0-8.5 [facility] Comment on above: Performed By: #### C BCA, PINR, 06255-1, BMP, 3040-3, 01979-7, 5643-2, LIVR, 56833-4, 61941-3, THYR, 56846-3, 39914-9 #### [facility] ([id number]) [address] [place] [address] PROTEIN TORRES 100 mg/dL Abnormal NEG [facility] Comment on above: Performed By: #### C BCA, PINR, 48306-6, BMP, 3040-3, 57481-3, 5643-2, LIVR, 41114-2, 82157-8, THYR, 81247-5, 70757-1 #### [facility] ([id number]) [address] [place] [address] SPECIFIC GRAVITY TORRES >=1.030 Normal 1.003-1.035 [facility] Comment on above: Performed By: #### C BCA, PINR, 66673-4, BMP, 3040-3, 60456-6, 5643-2, LIVR, 80142-1, 92886-7, THYR, 88413-6, 37724-5 #### [facility] ([id number]) [address] [place] [address] UROBILINOGEN TORRES 0.2 eu/dL Normal <1.1 [facility] Comment on above: Performed By: #### C BCA, PINR, 23577-7, BMP, 3040-3, 27074-2, 5643-2, LIVR, 55816-3, 13529-3, THYR, 19480-5, 67202-0 #### [facility] ([id number]) [address] [place] [address] XR CHEST 2 VWSon 06-26-2023 XR CHEST [...] Todd MD on 06/26/2023 2:13 AM Normal [facility] aPTT Coag (PPP) [Time]on aPTT Coag (Bld) [Time] 36 s Normal 26-37 Pr [facility] Comment on above: Result Comment: NEW REFERENCE RANGE Performed By: #### C BCA, PINR, 35108-4, BMP, 3040-3, 79785-2, 5643-2, LIVR, 73466-1, 67510-1, THYR, 30321-0, 60000-4 #### [facility] ([id number]) [address] [place] [address] lamoTRIgine [Mass/Vol]on LAMOTRIGINE <0.5 Low 1.0-13.0 [facility] Comment on above: Result Comment: NOTE This test was developed and its performance characteristics determined by [facility] [place] ([facility]). It has not been cleared or approved by the FDA. -[facility] is regulated under CLIA as qualified to perform high-complexity testing. This test is used for clinical purposes. It should not be regarded as investigational or for research. Test Performed By: [facility] [address] [place] [address] [employer] Forester: Joseph Rankin III, M.D. CLIA #[id number] Performed By: #### C BCA, PINR, 09104-8, BMP, 3040-3, 85086-7, 5643-2, LIVR, 40049-2, 20379-1, THYR, 53735-1, 03062-7 #### [facility] ([id number]) [address] [place] [address] A1C HEMOGLOBINon 05-24-2023 HbA1c (Bld) [Mass fraction] 9.1 % [facility] Other Glucose - [facility] Glucose [Mass/Vol] 238 mg/dL [facility] Other HbA1c (Bld) [Mass fraction]o n 05-24-2023 A1C HEMOGLOBIN [facility] Other A1C HEMOGLOBINon 02-08-2023 HbA1c (Bld) [Mass fraction] 6.9 % [facility] Other Glucose - [facility] Glucose [Mass/Vol] 183 mg/dL [facility] Other HbA1c (Bld) [Mass fraction]o n 02-08-2023 A1C HEMOGLOBIN [facility] Other A1C HEMOGLOBINon 10-21-2022 HbA1c (Bld) [Mass fraction] 6.5 % [facility] Other Glucose - [facility] Glucose [Mass/Vol] 122 mg/dL [facility] Other HbA1c (Bld) [Mass fraction]o n 10-21-2022 A1C HEMOGLOBIN [facility] Other CEA BLDon 07-22-2022 Carcinoembryonic Ag [Mass/Vol] 1.4 ng/mL <=2.9 ng/mL [facility] CBC W Auto Differential pane l (Bld)on 07-21-2022 Basophils (Bld) [#/Vol] 0.04 10*3/uL <0.11 k/uL [facility] Basophils/100 WBC (Bld) 0.4 % C [facility] Differential cell count method Nom (Bld) Auto [facility] Eosinophils (Bld) [#/Vol] 0.27 10*3/uL <0.46 k/uL [facility] Eosinophils/100 WBC (Bld) 3.0 % [facility] Erythrocyte distribution width (RBC) [Ratio] 13.5 % 11.5 - 15.0 % [facility] Hematocrit (Bld) [Volume fraction] 41.5 % 39.0 - 51.0 % [facility] Hemoglobin (Bld) [Mass/Vol] 13.7 g/dL 13.0 - 17.0 g/dL [facility] Immature granulocytes (Bld) [#/Vol] <0.10 k/uL [facility] Immature granulocytes/100 WBC (Bld) 0.2 % [facility] Lymphocytes (Bld) [#/Vol] 1.50 10*3/uL 1.00 - 4.00 k/uL [facility] Lymphocytes/100 WBC (Bld) 16.6 % [facility] MCH (RBC) [Entitic mass] 28.4 pg 26.0 - 34.0 pg [facility] MCHC (RBC) [Mass/Vol] 33.0 g/dL 30.5 - 36.0 g/dL [facility] MCV (RBC) [Entitic vol] 85.9 fL 80.0 - 100.0 fL [facility] Monocytes (Bld) [#/Vol] 0.53 10*3/uL <0.87 k/uL [facility] Monocytes/100 WBC (Bld) 5.9 % [facility] Neutrophils (Bld) [#/Vol] 6.67 10*3/uL 1.45 - 7.50 k/uL [facility] Neutrophils/100 WBC (Bld) 73.9 % [facility] Nucleated RBC (Bld) [#/Vol] <0.01 k/uL [facility] Nucleated RBC/100 WBC (Bld) [Ratio] 0.0 /100 WBC [facility] Platelet mean volume (Bld) [Entitic vol] 10.1 fL 9.0 - 12.7 fL [facility] Platelets (Bld) [#/Vol] 240 10*3/uL 150 - 400 k/uL [facility] RBC (Bld) [#/Vol] 4.83 10*6/uL 4.20 - 6.0 0 m/uL [facility] WBC (Bld) [#/Vol] 9.03 10*3/uL 3.70 - 11.00 k/uL [facility] Comprehensive metabolic 2000 panelon 07-21-2022 Albumin [Mass/Vol] 4.6 g/dL 3.9 - 4.9 g/dL [facility] ALP [Catalytic activity/Vol] 69 U/L 38 - 113 U/L [facility] ALT [Catalytic activity/Vol] 33 U/L 10 - 54 U/L [facility] Anion gap [Moles/Vol] 11 mmol/L 9 - 18 mmol/L [facility] AST [Catalytic activity/Vol] 26 U/L 14 - 40 U/L [facility] Bilirubin [Mass/Vol] 0.8 mg/dL 0.2 - 1 .3 mg/dL [facility] Calcium [Mass/Vol] 9.6 mg/dL 8.5 - 10. 2 mg/dL [facility] Chloride [Moles/Vol] 99 mmol/L 97 - 10 5 mmol/L [facility] CO2 [Moles/Vol] 28 mmol/L 22 - 30 mmol/L [facility] Creatinine [Mass/Vol] 1.27 mg/dL High 0.73 - 1.22 mg/dL [facility] Estimated Glomerular Filtration Rate 60 mL/min/1.73m >=60 mL/min/1.73 m [facility] Glucose [Mass/Vol] 116 mg/dL High 74 - 99 mg/dL [facility] Potassium [Moles/Vol] 3.6 mmol/L Low 3.7 - 5.1 mmol/L [facility] Protein [Mass/Vol] 7.3 g/dL 6.3 - 8.0 g/dL [facility] Sodium [Moles/Vol] 138 mmol/L 136 - 144 mmol/L [facility] Urea nitrogen [Mass/Vol] 22 mg/dL 9 - 24 mg/dL [facility] A1C HEMOGLOBINon 07-20-2022 HbA1c (Bld) [Mass fraction] 6.7 % [facility] Other Glucose - FINGER STICKon Glucose [Mass/Vol] 122 mg/dL [facility] Other HbA1c (Bld) [Mass fraction]o n 07-20-2022 A1C HEMOGLOBIN [facility] Other Glucose Glucometer (BldC) [M ass/Vol]Ordered By: Brandy Banks on 05-11-2022 Glucose [Mass/Vol] 122 mg/dL [facility] Comment on above: Random Glucose Refer ence Range is dependent on time and content of last meal. Glucose of more than 200 mg/dL in a nonstressed, ambulatory subject supports the diagnosis of Diabetes Mellitus. No Panel InformationOrdered By: Brandy Banks on 05-11-2022 Bedside Glucose Comment Glu2: cleaned meter [facility] COVID-19 SOFIAOrdered By: Reyes Banks on 05-07-2022 SARS-CoV+SARS-CoV-2 (COVID-19) Ag IA.rapid Ql (Resp) Negative Negative [facility] Comment on above: This is a duplicate [facility] SARS Antigen (ISAIAS) result to be used for statistical tracking purpose only. No Panel InformationOrdered By: Brandy Banks on 05-07-2022 SARS Antigen (LFIA) [facility] A1C HEMOGLOBINon 03-26-2022 HbA1c (Bld) [Mass fraction] 6.4 % [facility] Other Glucose - FINGER STICKon Glucose [Mass/Vol] 106 mg/dL [facility] Other HbA1c (Bld) [Mass fraction]o n 03-26-2022 A1C HEMOGLOBIN [facility] Other A1C HEMOGLOBINon 08-26-2021 HbA1c (Bld) [Mass fraction] 6.9 % [facility] Other Glucose - FINGER STICKon Glucose [Mass/Vol] 140 mg/dL [facility] Other HbA1c (Bld) [Mass fraction]o n 08-26-2021 A1C HEMOGLOBIN [facility] 07-23-2021 [facility] Telephone (HEMASA) GAGANDEEP AHN ([id number]) 1950 M Date Time Provider Department 07/23/21 LUL OROPEZA During your visit today, we recorded the following information about you: Lul Oropeza RN 07/23/2021 1:15 PM Signed Received call from Laura at [facility] stating pt's blood was hemolyzed [...] As Directed March 31, 2019 10:06am 03-31-2019 [facility] ([id number]) - busPIRone (BUSPAR) 10 mg tablet Take 10 mg by mouth three times daily. - QUEtiapine (SEROQUEL) 50 mg tablet Take 50 mg by mouth twice daily. - insulin detemir U-100 (LEVEMIR) 100 unit/mL (3 mL) injection pen insulin detemir Insulin Detemir U-100 Active 17 UNIT Subcutaneous Daily March 31, 2019 10:08am 03-31-2019 [facility] ([id number]) - tiotropium (SPIRIVA) 18 mcg inhalation capsule tiotropium Tiotropium [place] Active 2 PUFF Inhalation Daily March 31, 2019 10:06am 03-31-2019 [facility] ([id number]) - losartan (COZAAR) 50 mg tablet Take [...] order Admin (more content not included)... Normal [facility] CEAon 07-22-2021 CEA 1.2 ng/mL Normal 0.0-2.9 [facility] Comment on above: Result Comment: Test analyzed by the [employer] method. Performed By: #### C EA #### [facility] [employer] [address] [place], [place] [address] CNOVSPon 07-22-2021 CNOVSP Visit (SP) Office (HEMASA) GAGANDEEP AHN ([id number]) 1950 M Date Time Provider Department 07/22/21 [...] As Directed March 31, 2019 10:06am 03-31-2019 [facility] ([id number]) busPIRone (BUSPAR) 10 mg tablet Take 10 mg by mouth three times daily. QUEtiapine (SEROQUEL) 50 mg tablet Take 50 mg by mouth twice daily. insulin detemir U-100 (LEVEMIR) 100 unit/mL (3 mL) injection pen insulin detemir Insulin Detemir U-100 Active 17 UNIT Subcutaneous Daily March 31, 2019 10:08am 03-31-2019 [facility] ([id number]) tiotropium (SPIRIVA) 18 mcg inhalation capsule tiotropium Tiotropium [place] Active 2 PUFF Inhalation Daily March 31, 2019 10:06am 03-31-2019 [facility] ([id number]) losartan (COZAAR) 50 mg tablet Take 50 [...] de-access according (more content not included)... Normal [facility] Joaquin 07-22-2021 [place] Telephone (NCCAP) GERARDOGAGANDEEP PORTILLO ([id number]) 1950 M Date Time Provider Department 07/22/21 MOISE RAMOS During your visit today, we recorded the following information about you: Isabella Pollardmesha 07/22/2021 2:43 PM Signed Patient has been [...] As Directed March 31, 2019 10:06am 03-31-2019 [facility] ([id number]) - busPIRone (BUSPAR) 10 mg tablet Take 10 mg by mouth three times daily. - QUEtiapine (SEROQUEL) 50 mg tablet Take 50 mg by mouth twice daily. - insulin detemir U-100 (LEVEMIR) 100 unit/mL (3 mL) injection pen insulin detemir Insulin Detemir U-100 Active 17 UNIT Subcutaneous Daily March 31, 2019 10:08am 03-31-2019 [facility] ([id number]) - tiotropium (SPIRIVA) 18 mcg inhalation capsule tiotropium Tiotropium [place] Active 2 PUFF Inhalation Daily March 31, 2019 10:06am 03-31-2019 [facility] ([id number]) - losartan (COZAAR) 50 mg tablet Take [...] intravenously, once (more content not included)... Normal [facility] Comp Metabolic Panelon 07-22 Albumin [Mass/Vol] 4.1 g/dL Normal 3.9-4.9 [facility] Comment on above: Performed By: #### C MP #### [facility] [employer] [address], [place] [address] Albumin [Mass/Vol] 4.3 g/dL Normal 3.9-4.9 [facility] Comment on above: Performed By: #### C MP #### [facility] [employer] [address] [place], [place] [address] ALP [Catalytic activity/Vol] 44 U/L Normal 38-113 [facility] Comment on above: Performed By: #### C MP #### [facility] [employer] [address] [place], [place] [address] ALP [Catalytic activity/Vol] 43 U/L Normal 38-113 [facility] Comment on above: Performed By: #### C MP #### [facility] [employer] [address] [place], [place] [address] ALT [Catalytic activity/Vol] 27 U/L Normal 10-54 [facility] Comment on above: Result Comment: Resu lts may be falsely increased due to interference by hemolysis. Suggest reorder as clinically indicated. Performed By: #### C MP #### [facility] [employer] [address] [place], [place] [address] ALT [Catalytic activity/Vol] 25 U/L Normal 10-54 [facility] Comment on above: Result Comment: Resu lts may be falsely increased due to interference by hemolysis. Suggest reorder as clinically indicated. Performed By: #### C MP #### [facility] [employer] [address] [place] [address] Anion Gap Duplicate request Normal 9-18 [facility] Comment on above: Result Comment: Acco unt Credited DUPLICATE ORDER MW [id number] Performed By: #### C MP #### [facility] [employer] [address] [place] [address] Anion gap [Moles/Vol] 16 mmol/L Normal 9-18 [facility] Comment on above: Performed By: #### C MP #### [facility] [employer] [address] [place] [address] AST Unable to assay. Specimen hemolyzed. Normal 14-40 [facility] Comment on above: Performed By: #### C MP #### [facility] [employer] [address] [place] [address] AST [Catalytic activity/Vol] 41 U/L High 14-40 [facility] Comment on above: Result Comment: Resu lts may be falsely increased due to interference by hemolysis. Suggest reorder as clinically indicated. Performed By: #### C MP #### [facility] [employer] [address] [place], [place] [address] Bilirubin [Mass/Vol] 0.6 mg/dL Normal 0.2-1.3 [facility] Comment on above: Performed By: #### C MP #### [facility] [employer] [address] [place] [id number] Bilirubin [Mass/Vol] 0.7 mg/dL Normal 0.2-1.3 [facility] Comment on above: Performed By: #### C MP #### [facility] [employer] [address] [place], [place] [address] Calcium [Mass/Vol] 10.0 mg/dL Normal 8.5-10.2 [facility] Comment on above: Performed By: #### C MP #### [facility] [address] [place], [place] [address] Calcium [Mass/Vol] 9.7 mg/dL Normal 8.5-10.2 [facility] Comment on above: Performed By: #### C MP #### [facility] [address] [place], [place] [address] Chloride Duplicate request Normal 97-105 [facility] Comment on above: Result Comment: Acco unt Credited DUPLICATE ORDER [id number] Performed By: #### C MP #### [facility] [address] [place], [place] [address] Chloride [Moles/Vol] 103 mmol/L Normal 97-105 [facility] Comment on above: Performed By: #### C MP #### [facility] [address] [place], [place] [address] CO2 [Moles/Vol] 22 mmol/L Normal 22-30 [facility] Comment on above: Performed By: #### C MP #### [facility] [address] [place], [place] [address] CO2 [Moles/Vol] 27 mmol/L Normal 22-30 [facility] Comment on above: Performed By: #### C MP #### [facility] [employer] [address] [place], [place] [address] Creatinine [Mass/Vol] 0.85 mg/dL Normal 0.73-1.22 [facility] Comment on above: Performed By: #### C MP #### [facility] [employer] [address] [place] [phone] Creatinine [Mass/Vol] 0.87 mg/dL Normal 0.73-1.22 [facility] Comment on above: Performed By: #### C MP #### [place] [id number] [place] [address] eGFR- Amer. >60 Normal [facility] Comment on above: Performed By: #### C MP #### [facility] [address] [place] [address] eGFR- Amer. >60 Normal [facility] Comment on above: Performed By: #### C MP #### [place] [phone] eGFR-All Other Races >60 Normal [facility] Comment on above: Result Comment: eGFR [...] [email or web address]. Performed By: #### C MP #### [place] [address] eGFR-All Other Races >60 Normal [facility] Comment on above: Result Comment: eGFR [...] [email or web address]. Performed By: #### C MP #### [facility] [employer] [address] [place], [place] [address] Glucose [Mass/Vol] 67 mg/dL Low 74-99 [facility] Comment on above: Result Comment: The [employer] Diabetes Association (ADA) provides guidance for cutoff [...] Standards of Medical Care in Diabetes 2016, [place] Diabetes Association. Diabetes Care. 2016.39(Suppl 1). Performed By: #### C MP #### [facility] [employer] [address] [place], [place] [address] Glucose [Mass/Vol] 83 mg/dL Normal 74-99 [facility] Comment on above: Result Comment: The [employer] Diabetes Association (ADA) provides guidance for cutoff [...] Standards of Medical Care in Diabetes 2016, [place] Diabetes Association. Diabetes Care. 2016.39(Suppl 1). Performed By: #### C MP #### [facility] [employer] [address] [place], [place] [address] Potassium Unable to assay due to interference from hemolysis. Suggest reorder as clinically indicated. Normal 3.7-5.1 [facility] Comment on above: Performed By: #### C MP #### [facility] [employer] [address] [place], [place] [address] Potassium Duplicate request Normal 3.7-5.1 [facility] [place] Comment on above: Result Comment: Acco unt Credited DUPLICATE ORDER MW [id number] Performed By: #### C MP #### [facility] [employer] [address] [place], [place] [address] Protein [Mass/Vol] 7.1 g/dL Normal 6.3-8.0 [facility] Comment on above: Performed By: #### C MP #### [facility] [employer] [address] [place], [place] [address] Protein [Mass/Vol] 7.0 g/dL Normal 6.3-8.0 [facility] Comment on above: Performed By: #### C MP #### [facility] [employer] [address] [place], [place] [address] Sodium Duplicate request Normal 136-144 [facility] Comment on above: Result Comment: Acco unt Credited DUPLICATE ORDER MW [id number] Performed By: #### C MP #### [facility] [employer] [address] [place], [place] [address] Sodium [Moles/Vol] 141 mmol/L Normal 136-144 [facility] Comment on above: Performed By: #### C MP #### [facility] [address] [place], [place] [id number] Urea nitrogen [Mass/Vol] 26 mg/dL High 03-21 [facility] Comment on above: Performed By: #### C MP #### [facility] [address] [place], [place] [id number] Urea nitrogen [Mass/Vol] 27 mg/dL High 03-21 [facility] Comment on above: Performed By: #### C MP #### [facility] [address] [place], [place] [address] Remote CBCDIF (for [facility] use o nly)on 07-22-2021 Abs Baso 0.05 k/uL Normal <0.11 [facility] Abs [place] 0.68 k/uL Normal <0.87 [facility] Abs Neut 6.20 k/uL Normal 1.45-7.50 [facility] Absolute nRBC <0.01 Normal <0.01 [facility] Basophils/100 WBC (Bld) 0.5 % Normal [facility] DTYPE Auto Diff Normal [facility] Eosinophils (Bld) [#/Vol] 0.29 10*3/uL Normal <0.46 [facility] Eosinophils/100 WBC (Bld) 3.2 % Normal [facility] Erythrocyte distribution width (RBC) [Ratio] 14.0 % Normal 11.5-15.0 [facility] Hematocrit (Bld) [Volume fraction] 41.3 % Normal 39.0-51.0 [facility] Hemoglobin (Bld) [Mass/Vol] 13.5 g/dL Normal 13.0-17.0 [facility] Lymphocytes (Bld) [#/Vol] 1.95 10*3/uL Normal 1.00-4.00 [facility] Lymphocytes/100 WBC (Bld) 21.3 % Normal [facility] MCH 27.8 pG Normal 26.0-34.0 [facility] MCHC (RBC) [Mass/Vol] 32.7 g/dL Normal 30.5-36.0 [facility] MCV (RBC) [Entitic vol] 85.2 fL Normal 80.0-100.0 [facility] Monocytes/100 WBC (Bld) 7.4 % Normal [facility] Neutrophils/100 WBC (Bld) 67.6 % Normal [facility] NRBCs 0.0 /100 WBC Normal 0 [facility] Platelet mean volume (Bld) [Entitic vol] 11.3 fL Normal 9.0-12.7 [facility] Platelets (Bld) [#/Vol] 229 10*3/uL Normal 150-400 [facility] RBC (Bld) [#/Vol] 4.85 10*6/uL Normal 4.20-6.00 [facility] WBC (Bld) [#/Vol] 9.17 10*3/uL Normal 3.70-11.00 [facility] A1C HEMOGLOBINon 07-14-2021 HbA1c (Bld) [Mass fraction] 8.5 % [facility] Other Glucose - FINGER [facility]on Glucose [Mass/Vol] 275 mg/dL [facility] Other HbA1c (Bld) [Mass fraction]o n 07-14-2021 A1C HEMOGLOBIN [facility] Other CBC and Differentialon 01-07 Abs Baso 0.04 k/uL Normal <0.11 [facility] Abs [place] 0.62 k/uL Normal <0.87 [facility] Abs Neut 5.03 k/uL Normal 1.45-7.50 [facility] Absolute nRBC <0.01 Normal <0.01 [facility] Basophils/100 WBC (Bld) 0.5 % Normal [facility] DTYPE Auto Diff Normal [facility] Eosinophils (Bld) [#/Vol] 0.54 10*3/uL High <0.46 [facility] Eosinophils/100 WBC (Bld) 6.7 % Normal [facility] Erythrocyte distribution width (RBC) [Ratio] 14.4 % Normal 11.5-15.0 [facility] Hematocrit (Bld) [Volume fraction] 39.2 % Normal 39.0-51.0 [facility] Hemoglobin (Bld) [Mass/Vol] 13.0 g/dL Normal 13.0-17.0 [facility] Lymphocytes (Bld) [#/Vol] 1.78 10*3/uL Normal 1.00-4.00 [facility] Lymphocytes/100 WBC (Bld) 22.2 % Normal [facility] MCH 27.4 pG Normal 26.0-34.0 [facility] MCHC (RBC) [Mass/Vol] 33.2 g/dL Normal 30.5-36.0 [facility] MCV (RBC) [Entitic vol] 82.7 fL Normal 80.0-100.0 [facility] Monocytes/100 WBC (Bld) 7.7 % Normal [facility] Neutrophils/100 WBC (Bld) 62.9 % Normal [facility] NRBCs 0.0 /100 WBC Normal 0 [facility] Platelet mean volume (Bld) [Entitic vol] 10.3 fL Normal 9.0-12.7 [facility] Platelets (Bld) [#/Vol] 248 10*3/uL Normal 150-400 [facility] RBC (Bld) [#/Vol] 4.74 10*6/uL Normal 4.20-6.00 [facility] WBC (Bld) [#/Vol] 8.03 10*3/uL Normal 3.70-11.00 [facility] CEAon 01-07-2021 CEA 1.9 ng/mL Normal 0.0-2.9 [facility] Comment on above: Result Comment: Test analyzed by the [employer] method. Performed By: #### C BRENT #### [facility] [employer] [address] [place], [place] [address] OVSMati 01-07-2021 [facility] Visit (SP) Office (HEMASA) GAGANDEEP AHN ([id number]) 1950 M Date Time Provider Department 01/07/21 [...] As Directed March 31, 2019 10:06am 03-31-2019 [facility] ([id number]) busPIRone (BUSPAR) 10 mg tablet Take 10 mg by mouth three times daily. QUEtiapine (SEROQUEL) 50 mg tablet Take 50 mg by mouth twice daily. insulin detemir U-100 (LEVEMIR) 100 unit/mL (3 mL) injection pen insulin detemir Insulin Detemir U-100 Active 17 UNIT Subcutaneous Daily March 31, 2019 10:08am 03-31-2019 [facility] ([id number]) tiotropium (SPIRIVA) 18 mcg inhalation capsule tiotropium Tiotropium [place] Active 2 PUFF Inhalation Daily March 31, 2019 10:06am 03-31-2019 [facility] ([id number]) losartan (COZAAR) 50 mg tablet Take 50 [...] ABD/PEL-Inject, intr (more content not included)... Normal [facility] Comp Metabolic Panelon 01-07 Albumin [Mass/Vol] 4.1 g/dL Normal 3.9-4.9 [facility] ALP [Catalytic activity/Vol] 61 U/L Normal 38-113 [facility] ALT [Catalytic activity/Vol] 25 U/L Normal 10-54 [facility] Anion gap [Moles/Vol] 12 mmol/L Normal 9-18 [facility] AST [Catalytic activity/Vol] 21 U/L Normal 14-40 [facility] Bilirubin [Mass/Vol] 0.6 mg/dL Normal 0.2-1.3 [facility] Calcium [Mass/Vol] 9.6 mg/dL Normal 8.5-10.2 [facility] Chloride [Moles/Vol] 100 mmol/L Normal 97-105 [facility] CO2 [Moles/Vol] 25 mmol/L Normal 22-30 [facility] Creatinine [Mass/Vol] 0.81 mg/dL Normal 0.73-1.22 [facility] eGFR- Amer. >60 Normal [facility] eGFR-All Other Races >60 Normal [facility] Comment on above: Result Comment: eGFR [...] GFR. Glucose [Mass/Vol] 309 mg/dL High 74-99 [facility] Comment on above: Result Comment: The [employer] Diabetes Association (ADA) provides guidance for cutoff [...] Standards of Medical Care in Diabetes 2016, [place] Diabetes Association. Diabetes Care. 2016.39(Suppl 1). Potassium [Moles/Vol] 3.8 mmol/L Normal 3.7-5.1 [facility] Protein [Mass/Vol] 7.0 g/dL Normal 6.3-8.0 [facility] Sodium [Moles/Vol] 137 mmol/L Normal 136-144 [facility] Urea nitrogen [Mass/Vol] 16 mg/dL Normal 9-24 [facility] CNPNon 12-31-2020 CNPN Telephone (HEMASA) GAGANDEEP AHN ([id number]) 1950 Date Time Provider Department 12/31/20 MOISE RAMOS During your visit today, we recorded the following information about you: Ellie Dow 12/31/2020 10:32 AM Signed Please sign pending lab orders for Wednesday01/07/21. 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 - QUEtiapine (SEROQUEL) 50 mg tablet Take 50 mg by mouth twice daily. - insulin detemir U-100 (LEVEMIR) 100 unit/mL (3 mL) injection pen insulin detemir Insulin Detemir U-100 Active 17 UNIT Subcutaneous Daily March 31, 2019 10:08am 03-31-2019 [facility] ([id number]) - tiotropium (SPIRIVA) 18 mcg inhalation capsule tiotropium Tiotropium [place] Active 2 PUFF Inhalation Daily March 31, 2019 10:06am 03-31-2019 [facility] ([id number]) - losartan (COZAAR) 50 mg tablet Take [...] Rectal, E (more content not included)... Normal [facility] Social History Date Type Detail Facility Start: 06-28-2023 End: 09-28-2023 Alcohol intake Current non-drinker of alcohol (finding) [facility] Start: 06-26-2023 End: 09-28-2023 Sex Assigned At [facility] Start: 06-26-2023 End: 09-28-2023 History of Social function [facility] Start: 07-21-2022 Alcohol intake Current drinke r of alcohol (finding) [facility] Start: 11-07-2020 End: 09-30-2023 Tobacco smoking status AZIS Ex-smoker (finding) [facility] Start: 05-12-2016 Tobacco smoking stat [facility] Never smoked tobacco [facility] Start: 05-12-2016 End: 09-28-2023 Tobacco use and exposure Smokeless tobacco non-user [facility] Start: 1950 Sex Assigned At Male F [facility] Start: 1950 Sex Assigned At [facility] on file [facility] History of tobacco use Current smoker [employer] Has the [place], [employer], or [employer] threatened to shut off services in your home in past 12Mo No [facility] [employer] [facility] Marital Status Not on file [facility] How often to you hav e a drink containing alcohol? Never [email or web address] Do you feel stress - tense, restless, nervous, or anxious, or unable to sleep at night because your mind is troubled all the time - these days [OSQ] Only a little [facility] [facility] Vital Signs Date Time Vital Sign Value Performing Clinician Facility 12-09-2023 10:03-0400 Body height 175.26 cm BLACK LEATHER BUFFERMj Hyman Work Phone: [facility] 12-09-2023 10:03-0400 Body mass index (BMI) [Ratio] 24.2 kg/m2 BLACK LEATHER BUFFERMj Hyman Work Phone: [facility] 12-09-2023 10:03-0400 Body temperature 96.8 [degF] BLACK LEATHER BUFFERMj Hyman Work Phone: [facility] 12-09-2023 10:03-0400 Body weight 74.38 kg BLACK LEATHER BUFFERMj Hyman Work Phone: [facility] 12-09-2023 10:03-0400 Diastolic blood pressure 60 mm[Hg] BLACK LEATHER BUFFERMj Hyman Work Phone: [facility] 12-09-2023 10:03-0400 Heart rate 76 /min BLACK LEATHER BUFFERMj Hyman Work Phone: [facility] 12-09-2023 10:03-0400 SaO2% (BldA) [Mass fraction] 99 % BLACK LEATHER BUFFERMj Hyman Work Phone: [facility] 12-09-2023 10:03-0400 Systolic blood pressure 118 mm[Hg] IAIN Hyman Work Phone: [facility] 10-07-2023 09:53-0400 Body height 175.26 cm BLACK LEATHER BUFFERMj Hyman Work Phone: [facility] 10-07-2023 09:53-0400 Body mass index (BMI) [Ratio] 22.7 kg/m2 BLACK LEATHER BUFFERMj Hyman Work Phone: [facility] 10-07-2023 09:53-0400 Body temperature 97.9 [degF] IAIN Hyman Work Phone: [facility] 10-07-2023 09:53-0400 Body weight 69.85 kg BLACK LEATHER BUFFER Kota Anglim Work Phone: [facility] 10-07-2023 09:53-0400 Diastolic blood pressure 62 mm[Hg] BLACK LEATHER BUFFER Kota Anglim Work Phone: [facility] 10-07-2023 09:53-0400 Heart rate 77 /min BLACK LEATHER BUFFER Kota Anglim Work Phone: [facility] 10-07-2023 09:53-0400 Respiratory rate 16 /min BLACK LEATHER BUFFER Kota Anglim Work Phone: [facility] 10-07-2023 09:53-0400 SaO2% (BldA) [Mass fraction] 98 % BLACK LEATHER BUFFER Kota Anglim Work Phone: [facility] 10-07-2023 09:53-0400 Systolic blood pressure 102 mm[Hg] BLACK LEATHER BUFFER Kota Anglim Work Phone: [facility] 09-30-2023 11:15-0400 Body height 175.26 cm BLACK LEATHER BUFFERMj Casanovaa Anglim Work Phone: [facility] 09-30-2023 11:15-0400 Body mass index (BMI) [Ratio] 22.7 kg/m2 BLACK LEATHER BUFFERMj Casanovaa Anglim Work Phone: [facility] 09-30-2023 11:15-0400 Body weight 69.85 kg BLACK LEATHER BUFFERMj Casanovaa Anglim Work Phone: [facility] 09-30-2023 10:25-0400 Body temperature 97.3 [degF] BLACK LEATHER BUFFER Kota Anglim Work Phone: [facility] 09-30-2023 10:25-0400 Diastolic blood pressure 81 mm[Hg] BLACK LEATHER BUFFER Kota Anglim Work Phone: [facility] 09-30-2023 10:25-0400 Heart rate 74 /min BLACK LEATHER BUFFER Kota Anglim Work Phone: [facility] 09-30-2023 10:25-0400 Respiratory rate 18 /min BLACK LEATHER BUFFER Kota Anglim Work Phone: [facility] 09-30-2023 10:25-0400 Systolic blood pressure 152 mm[Hg] BLACK LEATHER BUFFERMj Hyman Work Phone: [facility] 09-28-2023 15:15-0400 Body height 170.2 cm Jo Veronica MD Work Phone: [facility] 09-28-2023 15:15-0400 Body mass index (BMI) [Ratio] 25.84 kg/m2 Jo Veronica MD Work Phone: [facility] 09-28-2023 15:15-0400 Body weight 74.84 kg Jo Veronica MD Work Phone: [facility] 09-28-2023 15:15-0400 Diastolic blood pressure 72 mm[Hg] Jo Veronica MD Work Phone: [facility] 09-28-2023 15:15-0400 Heart rate 77 /min Jo Veronica MD Work Phone: [facility] [employer] [facility] 09-28-2023 15:15-0400 Systolic blood pressure 128 mm[Hg] Jo Veronica MD Work Phone: [facility] 09-13-2023 15:00-0400 Diastolic blood pressure 75 mm[Hg] IAIN Hyman Work Phone: [facility] 09-13-2023 15:00-0400 Heart rate 71 /min BLACK LEATHER BUFFERMj Hyman Work Phone: [facility] 09-13-2023 15:00-0400 Respiratory rate 16 /min IAIN Hyman Work Phone: [facility] 09-13-2023 15:00-0400 SaO2% (BldA) [Mass fraction] 96 % IAIN Hyman Work Phone: [facility] 09-13-2023 15:00-0400 Systolic blood pressure 140 mm[Hg] BLACK LEATHER BUFFER Kota Hyman Work Phone: [facility] 09-13-2023 11:40-0400 Inhaled oxygen flow rate 2 L/min BLACK LEATHER BUFFERMj Hyman Work Phone: [facility] 09-13-2023 10:39-0400 Body height 175.26 cm BLACK LEATHER BUFFERMj Aldrichlim Work Phone: [facility] 09-13-2023 10:39-0400 Body weight 69.85 kg BLACK LEATHER BUFFERMj Aldrichlim Work Phone: [facility] 09-09-2023 11:35-0400 Body height 175.26 cm BLACK LEATHER BUFFERMj Aldrichlim Work Phone: [facility] 09-09-2023 11:35-0400 Body mass index (BMI) [Ratio] 22.7 kg/m2 BLACK LEATHER BUFFERMj Hyman Work Phone: [facility] 09-09-2023 11:35-0400 Body temperature 97.4 [degF] BLACK LEATHER BUFFERMj Hyman Work Phone: [facility] 09-09-2023 11:35-0400 Body weight 69.85 kg BLACK LEATHER BUFFERMj Hyman Work Phone: [facility] 09-09-2023 11:35-0400 Diastolic blood pressure 50 mm[Hg] BLACK LEATHER BUFFERMj Hyman Work Phone: [facility] 09-09-2023 11:35-0400 Heart rate 73 /min BLACK LEATHER BUFFERMj Hyman Work Phone: [facility] 09-09-2023 11:35-0400 SaO2% (BldA) [Mass fraction] 98 % BLACK LEATHER BUFFERMj Aldrichlim Work Phone: [facility] 09-09-2023 11:35-0400 Systolic blood pressure 100 mm[Hg] BLACK LEATHER BUFFERMj Casanovaa Anglim Work Phone: [facility] 09-09-2023 08:46-0400 Body height 175.26 cm BLACK LEATHER BUFFERMj Aguirre Anglim Work Phone: [facility] 09-09-2023 08:46-0400 Body mass index (BMI) [Ratio] 22.7 kg/m2 BLACK LEATHER BUFFERMj Aldrichlim Work Phone: [facility] 09-09-2023 08:46-0400 Body weight 69.85 kg BLACK LEATHER BUFFERMj Aldrichlim Work Phone: [facility] 09-09-2023 08:31-0400 Body temperature 97.5 [degF] BLACK LEATHER BUFFER Kota Anglim Work Phone: [facility] 09-09-2023 08:31-0400 Diastolic blood pressure 69 mm[Hg] BLACK LEATHER BUFFERMj Aguirre Anglim Work Phone: [facility] 09-09-2023 08:31-0400 Heart rate 64 /min BLACK LEATHER BUFFER Kota Anglim Work Phone: [facility] 09-09-2023 08:31-0400 Respiratory rate 18 /min BLACK LEATHER BUFFER Kota Anglim Work Phone: [facility] 09-09-2023 08:31-0400 Systolic blood pressure 115 mm[Hg] BLACK LEATHER BUFFERMj Aguirre Anglim Work Phone: [facility] 08-28-2023 16:09-0500 Diastolic blood pressure 85 mm[Hg] BLACK LEATHER BUFFER Kota Anglim Work Phone: [facility] 08-28-2023 16:09-0500 Heart rate 70 /min BLACK LEATHER BUFFER Kota Anglim Work Phone: [facility] 08-28-2023 16:09-0500 Respiratory rate 20 /min BLACK LEATHER BUFFER Kota Anglim Work Phone: [facility] 08-28-2023 16:09-0500 SaO2% (BldA) [Mass fraction] 100 % BLACK LEATHER BUFFERMj Casanovaa Anglim Work Phone: [facility] 08-28-2023 16:09-0500 Systolic blood pressure 185 mm[Hg] IAIN Hyman Work Phone: [facility] 08-28-2023 14:29-0500 Body height 175.26 cm IAIN Hyman Work Phone: [facility] 08-28-2023 14:29-0500 Body temperature 97.6 [degF] IAIN Hyman Work Phone: [facility] 08-28-2023 14:29-0500 Body weight 69.85 kg IAIN Hyman Work Phone: [facility] 05-24-2023 14:00-0500 Body height 170.18 cm Tondra Mapus Other [facility] 05-24-2023 14:00-0500 Body mass index (BMI) [Ratio] 27.56 kg/m2 Tondra Mapus Other [facility] [employer] Other 05-24-2023 14:00-0500 Body weight 79.83 kg Tondra Mapus Other [facility] 05-24-2023 14:00-0500 Diastolic blood pressure 84 mm[Hg] Tondra Mapus Other [facility] 05-24-2023 14:00-0500 Respiratory rate 18 /min Tondra Mapus Other [facility] [employer] Other 05-24-2023 14:00-0500 SaO2% (BldA) [Mass fraction] 100 % Tondra Mapus Other [facility] [employer] Other 05-24-2023 14:00-0500 Systolic blood pressure 148 mm[Hg] Tondra Mapus Other [facility] 02-08-2023 14:30-0400 Body height 170.18 cm Tondra Mapus Other [employer] Other 02-08-2023 14:30-0400 Body mass index (BMI) [Ratio] 27.33 kg/m2 Tondra Mapus Other [employer] Other 02-08-2023 14:30-0400 Body weight 79.15 kg Tondra Mapus Other [employer] Other 02-08-2023 14:30-0400 Diastolic blood pressure 92 mm[Hg] Tondra Mapus Other [employer] Other 02-08-2023 14:30-0400 Respiratory rate 18 /min Tondra Mapus Other [employer] Other 02-08-2023 14:30-0400 SaO2% (BldA) [Mass fraction] 98 % Tondra Mapus Other [employer] Other 02-08-2023 14:30-0400 Systolic blood pressure 172 mm[Hg] Tondra Mapus Other [employer] Other 10-21-2022 15:15-0400 Body height 170.18 cm Tondra Mapus Other [employer] Other 10-21-2022 15:15-0400 Body mass index (BMI) [Ratio] 26.89 kg/m2 Tondra Mapus Other [employer] Other 10-21-2022 15:15-0400 Body weight 77.88 kg Tondra Mapus Other [employer] Other 10-21-2022 15:15-0400 Diastolic blood pressure 92 mm[Hg] Tondra Mapus Other [employer] Other 10-21-2022 15:15-0400 Respiratory rate 18 /min Tondra Mapus Other [employer] Other 10-21-2022 15:15-0400 SaO2% (BldA) [Mass fraction] 97 % Tondra Mapus Other [employer] Other 10-21-2022 15:15-0400 Systolic blood pressure 161 mm[Hg] Tondra Mapus Other [employer] Other 07-21-2022 13:42-0500 Body height 176.5 cm Moise Ramos MD Work Phone: [facility] 07-21-2022 13:42-0500 Body temperature 97.59 [degF] Moise Ramos MD Work Phone: [facility] 07-21-2022 13:42-0500 Body weight 76.11 kg Moise Ramos MD Work Phone: [facility] 07-21-2022 13:42-0500 Diastolic blood pressure 64 mm[Hg] Moise Ramos MD Work Phone: [facility] 07-21-2022 13:42-0500 Heart rate 58 /min Moise Ramos MD Work Phone: [facility] 07-21-2022 13:42-0500 Respiratory rate 18 /min Moise Ramos MD Work Phone: [facility] 07-21-2022 13:42-0500 SaO2% (BldA) [Mass fraction] 97 % Moise Ramos MD Work Phone: [facility] 07-21-2022 13:42-0500 Systolic blood pressure 107 mm[Hg] Moise Ramos MD Work Phone: [facility] 07-20-2022 14:00-0500 Body height 170.18 cm Tondra Mapus Other [employer] Other 07-20-2022 14:00-0500 Body mass index (BMI) [Ratio] 26.39 kg/m2 Tondra Mapus Other [employer] Other 07-20-2022 14:00-0500 Body weight 76.43 kg Tondra Mapus Other [employer] Other 07-20-2022 14:00-0500 Diastolic blood pressure 77 mm[Hg] Tondra Mapus Other [employer] Other 07-20-2022 14:00-0500 Respiratory rate 18 /min Tondra Mapus Other [employer] Other 07-20-2022 14:00-0500 SaO2% (BldA) [Mass fraction] 97 % Tondra Mapus Other [employer] Other 07-20-2022 14:00-0500 Systolic blood pressure 147 mm[Hg] Tondra Mapus Other [employer] Other 05-11-2022 14:13-0500 Diastolic blood pressure 82 mm[Hg] BLACK LEATHER BUFFER Kota Anglim Work Phone: [facility] 05-11-2022 14:13-0500 Heart rate 57 /min BLACK LEATHER BUFFER Kota Anglim Work Phone: [facility] 05-11-2022 14:13-0500 Respiratory rate 16 /min BLACK LEATHER BUFFER Kota Anglim Work Phone: [facility] 05-11-2022 14:13-0500 SaO2% (BldA) [Mass fraction] 96 % IAIN Hyman Work Phone: [facility] 05-11-2022 14:13-0500 Systolic blood pressure 147 mm[Hg] BLACK LEATHER BUFFERMj Hyman Work Phone: [facility] 05-11-2022 13:28-0500 Inhaled oxygen flow rate 8 L/min BLACK LEATHER BUFFERMj Hyman Work Phone: [facility] 05-11-2022 13:04-0500 Body height 175.26 cm BLACK LEATHER BUFFERMj Hyman Work Phone: [facility] 05-11-2022 13:04-0500 Body mass index (BMI) [Ratio] 24.8 kg/m2 IAIN Hyman Work Phone: [facility] 05-11-2022 13:04-0500 Body weight 76.3 kg BLACK LEATHER BUFFERMj Hyman Work Phone: [facility] 05-11-2022 11:08-0500 Body temperature 97.5 [degF] BLACK LEATHER BUFFERMj Hyman Work Phone: [facility] 03-26-2022 15:15-0400 Body height 170.18 cm Delores Carus Other [employer] Other 03-26-2022 15:15-0400 Body mass index (BMI) [Ratio] 27.25 kg/m2 Tondra Mapus Other [employer] Other 03-26-2022 15:15-0400 Body weight 78.93 kg Tondra Mapus Other [employer] Other 03-26-2022 15:15-0400 Diastolic blood pressure 67 mm[Hg] Tondra Mapus Other [employer] Other 03-26-2022 15:15-0400 Respiratory rate 18 /min Tondra Mapus Other [employer] Other 03-26-2022 15:15-0400 SaO2% (BldA) [Mass fraction] 99 % Tondra Mapus Other [employer] Other 03-26-2022 15:15-0400 Systolic blood pressure 111 mm[Hg] Tondra Mapus Other [employer] Other 08-26-2021 10:15-0500 Body height 170.18 cm Tondra Mapus Other [employer] Other 08-26-2021 10:15-0500 Body mass index (BMI) [Ratio] 28.5 kg/m2 Tondra Mapus Other [employer] Other 08-26-2021 10:15-0500 Body weight 82.56 kg Tondra Mapus Other [employer] Other 08-26-2021 10:15-0500 Diastolic blood pressure 78 mm[Hg] Tondra Mapus Other [employer] Other 08-26-2021 10:15-0500 Respiratory rate 16 /min Tondra Mapus Other [employer] Other 08-26-2021 10:15-0500 SaO2% (BldA) [Mass fraction] 99 % Tondra Mapus Other [employer] Other 08-26-2021 10:15-0500 Systolic blood pressure 125 mm[Hg] Tondra Mapus Other [employer] Other 07-28-2021 12:00-0500 Body height 170.18 cm Tondra Mapus Other [employer] Other 07-28-2021 12:00-0500 Body mass index (BMI) [Ratio] 30.44 kg/m2 Tondra Mapus Other [employer] Other 07-28-2021 12:00-0500 Body weight 88.18 kg Tondra Mapus Other [employer] Other 07-28-2021 12:00-0500 Diastolic blood pressure 74 mm[Hg] Tondra Mapus Other [employer] Other 07-28-2021 12:00-0500 Respiratory rate 18 /min Tondra Mapus Other [employer] Other 07-28-2021 12:00-0500 SaO2% (BldA) [Mass fraction] 98 % Tondra Mapus Other [employer] Other 07-28-2021 12:00-0500 Systolic blood pressure 142 mm[Hg] Tondra Mapus Other [employer] Other 07-14-2021 12:00-0500 Body height 170.18 cm Tondra Mapus Other [employer] Other 07-14-2021 12:00-0500 Body mass index (BMI) [Ratio] 29.29 kg/m2 Tondra Mapus Other [employer] Other 07-14-2021 12:00-0500 Body weight 84.82 kg Tondra Mapus Other [employer] Other 07-14-2021 12:00-0500 Diastolic blood pressure 77 mm[Hg] Tondra Mapus Other [employer] Other 07-14-2021 12:00-0500 Respiratory rate 20 /min Tondra Mapus Other [employer] Other 07-14-2021 12:00-0500 SaO2% (BldA) [Mass fraction] 98 % Tondra Mapus Other [employer] Other 07-14-2021 12:00-0500 Systolic blood pressure 132 mm[Hg] Tondra Mapus Other [employer] Other Clinical Notes 01-07-2021 to 11-17-2023 Note Date & Type Note Facility 11-17-2023 Note RCRI=0 points Class I Risk 3.9 % 30-day risk of , [place], or cardiac arrest Pt denied CAD, CHF, Stroke, renal disease States good functional/aerobic capacity and only limiting factor is Rt foot ulcer/pain. METS> 8-10 From a cardiology perspective pt may proceed with planned Rt Foot surgery tomorrow, he is a low risk for a low-mod risk surgery- and he voiced understanding. May hold ASA if needed. [facility] 11-17-2023 Note Diabetes is stable, A1C stable 6.2 F/U with PCP [facility] 11-17-2023 Note Hypertension is stab le and states b/p at PCP office is well controlled- continue all current meds. Norvasc 2.5 mg, hydrochlorothiazide, losartan, toprol [facility] 11-17-2023 Note [facility] CARDIOLOGY PROGR ESS NOTE HPI: Gagandeep Ahn is a 73 y.o. male here for New Patient (Cardiac clearance ) HPI 73 yo male presents today with family from [facility] as new pt for cardiac clearance for Rt foot surgery tomorrow with Dr Strickland. States he used to see a stock [employer] self service store many years ago- he can't remember why- [...] denied illicit drug use Reviewed chart from [facility] and [facility] Review of Systems Constitutional: Negative. Respiratory: [...] mg by mouth in the morning. HYDROcodone-acetaminophen ([place]) 7.5-325 mg tablet Take 1 tablet by [...] leg: No georgina (more content not included)... [facility] 09-30-2023 Progress note Note Date/Time September 30, 2023 11:15am [facility] [address] [place] [address] Wound Center Provider Note Signed Patient: Gagandeep Ahn MR#: [id number] : 1950 Acct:[id number] Age/Sex: 72 / M Copies to: Kota [...] 2023 right heel ulcer Mode of Arrival/ Security Administrator: Family Assistive Device Used Today: Wheelchair Appetite Description: Within Normal Limits Who helps w/ dressing change?: Home Health Why Do You Need Help?: Can't Reach Ulcer, Limited mobility, Unsafe leave home byself and Taxing effort to leave home Smoking Status: Former smoker [facility] Medical History Hypertension Depression Colon cancer Vitamin D deficiency Osteopenia Mood disorder shelter current use of insulin Insomnia Hypoglycemia associated [...] Bed Appearance: Beefy Red, Black Moist, Brown, [place], Yellow and Hypergranulation Percent of Wound Bed Granulated/Red: 80 Percent of Devitalized: 20 Length (cm): 3.9 Width (cm): 2.9 Depth (cm): 0.8 CM Sq: 11.310 Surrounding Tissue Appearance: [place] Surrounding Tissue Temp: Warm Drainage Amount: Moderate [...] 12:00 Tunneling Depth: 2 Surrounding Tissue Appearance: [place] Surrounding Tissue Temp: Warm Drainage Amount: None [...] Austyn Day M.D.08/19/2023 10:46 AM Dictation Location: [place] [address] Height: 5 ft 9 in Weight: 154 [...] to refer to Dr. Strickland at the [place] wound care clinic or at his [facility] office for evaluation and treatment. We will [...] office at the wound care clinic in [place] and they said they would review his case and get back with him. I told the patient patient's family that I will send my note today to Dr. Strickland so he can review. We called to see if he was actually taking the doxycycline that was ordered for him based on the culture results. The shelter facility said that they received the order and have the pills however they did not have the order to take the medication. An order was sent today to begin taking the antibiotic as directed. (2) Atherosclerosis of [place] artery of both lower extremities: Code(s): I70.203 - Unspecified atherosclerosis of [place] arteries of extremities, bilateral legs Plan: Patient has follow-up with [facility] vascular associates in 1 week. Time spent with patient Time Spent With Patient (min): 31 Dictated By: Beau Presley DPM DD/ [id number] Signed By: <Electronically signed by YING Presley> 09/30/23 1113 [facility] Work Phone: 1(352) 270-321404-02-2024 History of Present illness Narrative* Jo Veronica MD - 09/28/2023 3:00 PM EDT Images from the original note were not included. [address] [place] [address] [address] [facility] [id number] Patient: Gagandeep Ahn Date of : 1950 [...] any problems now Chest pain Colon cancer ([facility]) COPD (chronic obstructive pulmonary disease) ([facility]) Diabetes mellitus ([facility]) Glaucoma Hyperlipidemia Hypertension Past Surgical History: Procedure [...] you for your understanding. [facility] Progress note Author Martha Wilkes [facility] September 22, 2023 11:20am Note Date/Time September 22, 2023 11: 18am [facility] [address] [place] [address] Wound Center Provider Note Signed Patient: Gagandeep Ahn MR#: [id number] : 1950 Acct:[id number] Age/Sex: 72 / M Copies to: Kota Hyman APRN, [employer] Martha Wilkes APRN~ HPI Date of Visit Date of Visit: Date of Service: 09/22/2023 Time of Service: 11:11 Narrative HPI: 08/19/23 Gagandeep is a 72-year-old male presenting to [facility] for an initial visit for evaluation and treatment for bilateral heel ulcers. Please note that his daughter Soila is with him for the entire visit. Gagandeep does currently reside at an assisted living facility. We we will need to set the [facility] care for him due to the [...] 2023 right heel ulcer Mode of Arrival/ Security Administrator: Family Assistive Device Used Today: Wheelchair Appetite Description: Within Normal Limits Who helps w/ dressing change?: Home Health Why Do You Need Help?: Can't Reach Ulcer, Limited mobility, Unsafe leave home byself and Taxing effort to leave home Smoking Status: Former smoker [facility] Medical History Hypertension Depression Colon cancer Vitamin D deficiency Osteopenia Mood disorder shelter current use of insulin Insomnia Hypoglycemia associated [...] Bed Appearance: Black Dry, Black Moist, Brown, [place] and Yellow Percent of Wound Bed Granulated/Red: 10 Percent of Devitalized: 90 Length (cm): 3.6 Width (cm): 2.6 Depth (cm): 0.2 CM Sq: 9.360 Surrounding Tissue Appearance: [place] Surrounding Tissue Temp: Warm Drainage Amount: Moderate [...] 0.1 CM Sq: 1.300 Surrounding Tissue Appearance: [place] Surrounding Tissue Temp: Warm Drainage Amount: None [...] Austyn Day M.D.08/19/2023 10:46 AM Dictation Location: [place] [address] Height: 5 ft 9 in Weight: 69.853 [...] <Electronically signed by IAIN Wilkes> 09/22/23 [address] [facility] Work Phone: 1(439) 569-387703-18-2024 [facility] Progress note Author Martha Wilkes [facility] September 09, 2023 8:46am Note Date/Time September 09, 2023 8:4 6am [facility] [address] [place] [address] Wound Center Provider Note Signed Patient: Gagandeep Ahn MR#: [id number] : 1950 Acct:[id number] Age/Sex: 72 / M Copies to: Kota Hyman APRN, CORBIN Wilkes APRN~ HPI Date of Visit Date of Visit: Date of Service: 09/09/2023 Time of Service: 08:42 Narrative HPI: 08/19/23 Gagandeep is a 72-year-old male presenting to [facility] for an initial visit for evaluation and treatment for bilateral heel ulcers. Please note that his daughter Soila is with him for the entire visit. Gagandeep does currently reside at an assisted living facility. We we will need to set the [facility] care for him due to the [...] 2023 right heel ulcer Mode of Arrival/ Security Administrator: Family Assistive Device Used Today: Wheelchair Appetite Description: Within Normal Limits Who helps w/ dressing change?: Home Health Why Do You Need Help?: Can't Reach Ulcer, Limited mobility, Unsafe leave home byself and Taxing effort to leave home Smoking Status: Former smoker [facility] Medical History (Updated 09/05/23 @ 00:00 by [...] Bed Appearance: Black Dry, Black Moist, Brown, [place] and Yellow Percent of Wound Bed Granulated/Red: 5 Percent of Devitalized: 95 Length (cm): 3 Width (cm): 2.8 Depth (cm): 0.2 CM Sq: 8.400 Surrounding Tissue Appearance: [place] Surrounding Tissue Temp: Warm Drainage Amount: Moderate Drainage Description: Serosanguineous Drainage Odor: Foul Odor Left Heel: Type: Pressure/Injury Ulcer (w/diabetes/pvod) Pressure Ulcer/Injury Staging: Unstageable (at least stage 3) Bed Appearance: Black Dry Percent of Wound Bed Granulated/Red: 0 Percent of Devitalized: 100 Length (cm): 1.2 Width (cm): 1.0 Depth (cm): 0.1 CM Sq: 1.200 Surrounding Tissue Appearance: [place] Surrounding Tissue Temp: Warm Drainage Amount: None [...] Austyn Day M.D.08/19/2023 10:46 AM Dictation Location: [place] [address] Height: 5 ft 9 in Weight: 69.853 [...] 15 Dictated By: Martha Wilkes APRN DD/ 1 Signed By: <Electronically signed by IAIN Wilkes> 09/09/23 0846 [facility] Work Phone: 1(343) 409-657603-07-2024 Progress note Author Martha Wilkes [facility] September 02, 2023 7:36am Note Date/Time September 02, 2023 7:36 am [facility] [address] [place] [address] Wound Center Provider Note Signed Patient: Gagandeep Ahn MR#: [id number] : 1950 Acct:[id number] Age/Sex: 72 / M Copies to: Kota Hyman APRN, CORBIN Wilkes APRN~ HPI Date of Visit Date of Visit: Date of Service: 09/02/2023 Time of Service: 07:31 Narrative HPI: 08/19/23 Gagandeep is a 72-year-old male presenting [facility] for an initial visit for evaluation and treatment for bilateral heel ulcers. Please note that his daughter Soila is with him for the entire visit. Gagandeep does currently reside at an assisted living facility. We we will need [facility] him due to the [...] 2023 right heel ulcer Mode of Arrival/ Security Administrator: Family Assistive Device Used Today: Wheelchair Appetite Description: Within Normal Limits Who helps w/ dressing change?: Home Health Why Do You Need Help?: Can't Reach Ulcer, Limited mobility, Unsafe leave home byself and Taxing effort to leave home Smoking Status: Former smoker [facility] Medical History (Updated 08/28/23 @ 16:09 by [...] 0.2 CM Sq: 9.000 Surrounding Tissue Appearance: [place] Surrounding Tissue Temp: Warm Drainage Amount: Moderate Drainage Description: Serosanguineous Drainage Odor: Slight Odor Left Heel: Type: Pressure/Injury Ulcer (w/diabetes/pvod) Pressure Ulcer/Injury Staging: Unstageable (at least stage 3) Bed Appearance: Black Dry Percent of Wound Bed Granulated/Red: 0 Percent of Devitalized: 100 Length (cm): 1.5 Width (cm): 1.2 Depth (cm): 0.1 CM Sq: 1.800 Surrounding Tissue Appearance: [place] Surrounding Tissue Temp: Warm Drainage Amount: None Drainage Odor: Slight Odor Results Additional Studies: ITS Impressions Calcaneus X-Ray 08/19/23 07:42 IMPRESSION: Mild soft tissue swelling. No subcutaneous air or radiodense foreign body. No acute bony involvement. Impression dictated by: Austyn Day M.D.08/19/2023 10:46 AM Dictation Location: [place] [address] Height: 5 ft 9 in Weight: 69.853 [...] <Electronically signed by IAIN Wilkes> 09/02/23 0736 [facility] Work Phone: 1(867) 855-804302-29-2024 Progress note Author Martha Wilkes [facility] August 26, 2023 10:28am Note Date/Time August 26, 2023 10:28am [facility] [address] [place] [address] Wound Center Provider Note Signed Patient: Gagandeep Ahn MR#: [id number] : 1950 Acct:[id number] Age/Sex: 72 / M Copies to: Kota Hyman APRN, MI[employer]OSO[employer] ARCHITECT Martha Katrin, BLACK LEATHER BUFFER~ HPI Date of Visit Date of Visit: Date of Service: 08/26/2023 Time of Service: 10:25 Narrative HPI: 08/19/23 Gagandeep is a 72-year-old male presenting to [facility] for an initial visit for evaluation and treatment for bilateral heel ulcers. Please note that his daughter Soila is with him for the entire visit. Gagandeep does currently reside at an assisted living facility. We we will need [facility] him due to the [...] 2023 right heel ulcer Mode of Arrival/ Security Administrator: Family Assistive Device Used Today: Wheelchair Appetite Description: Within Normal Limits Who helps w/ dressing change?: Home Health Why Do You Need Help?: Can't Reach Ulcer, Limited mobility, Unsafe leave home byself and Taxing effort to leave home Smoking Status: Never smoker [facility] Medical History (Updated 08/19/23 @ 07:38 by [...] 0.2 CM Sq: 8.400 Surrounding Tissue Appearance: [place] Surrounding Tissue Temp: Warm Drainage Amount: Moderate Drainage Description: Serosanguineous Drainage Odor: Slight Odor Left Heel: Type: Pressure/Injury Ulcer (w/diabetes) Pressure Ulcer/Injury Staging: Unstageable (at least stage 3) Bed Appearance: Black Dry, Black Moist and Yellow Percent of Wound Bed Granulated/Red: 0 Percent of Devitalized: 100 Length (cm): 1.4 Width (cm): 1.1 Depth (cm): 0.1 CM Sq: 1.540 Surrounding Tissue Appearance: [place] Surrounding Tissue Temp: Warm Drainage Amount: Scant Drainage Description: Serosanguineous Drainage Odor: Slight Odor Results Additional Studies: ITS Impressions Calcaneus X-Ray 08/19/23 07:42 IMPRESSION: Mild soft tissue swelling. No subcutaneous air or radiodense foreign body. No acute bony involvement. Impression dictated by: Austyn Day M.D.08/19/2023 10:46 AM Dictation Location: [place] [address] Height: 5 ft 9 in Weight: 69.853 [...] <Electronically signed by IAIN Wilkes> 08/26/23 1028 [facility] Work Phone: 1(880) 673-436902-26-2024 Progress note Author Brandy Banks [facility] August 23, 2023 12:54pm Note Date/Time August 19, 2023 7:41am [facility] [address] [place] [address] Wound Center Provider Note Signed Patient: Gagandeep Ahn MR#: [id number] : 1950 Acct:[id number] Age/Sex: 72 / M Copies to: MD Kota Peacock APRN, MICROSOFT ARCHITECT Martha Wilkes APRN~ HPI Date of Visit Date of Visit: Date of Service: 08/19/2023 Time of Service: 07:35 Narrative HPI: 08/19/23 Gagandeep is a 72-year-old male presenting to [facility] for an initial visit for evaluation and treatment for bilateral heel ulcers. Please note that his daughter Soila is with him for the entire visit. Gagandeep does currently reside at an assisted living facility. We we will need [facility] him due to the [...] 2023 right heel ulcer Mode of Arrival/ Security Administrator: Family Assistive Device Used Today: Wheelchair Appetite Description: Within Normal Limits Who helps w/ dressing change?: Home Health Why Do You Need Help?: Can't Reach Ulcer, Limited mobility, Unsafe leave home byself and Taxing effort to leave home Smoking Status: Never smoker [facility] Medical History (Updated 08/19/23 @ 07:38 by [...] 3) Bed Appearance: Black Dry, Black Moist, [place] and Yellow Percent of Wound Bed Granulated/Red: 2 Percent of Devitalized: 98 Length (cm): 2.8 Width (cm): 3 Depth (cm): 0.2 CM Sq: 8.400 Surrounding Tissue Appearance: [place] Surrounding Tissue Temp: Warm Drainage Amount: Moderate Drainage Description: Serosanguineous Drainage Odor: Slight Odor Left Heel: Type: Pressure/Injury Ulcer (w/diabetes) Pressure Ulcer/Injury Staging: Unstageable (at least stage 3) Bed Appearance: Black Dry, Black Moist and Yellow Percent of Wound Bed Granulated/Red: 0 Percent of Devitalized: 100 Length (cm): 1.7 Width (cm): 1.3 Depth (cm): 0.2 CM Sq: 2.210 Surrounding Tissue Appearance: [place] Surrounding Tissue Temp: Warm Drainage Amount: Moderate [...] signed by MD Brandy Banks> 08/23/23 1258 [facility] Work Phone: 1(973) 362-988701-30-2024 Miscellaneous Notes* Telephone Encounter - Marcella Jones - 07/27/2023 3:25 PM EST Patient contacted our office to schedule appointment, however, we have not received patients referral. Project Scheduler explained that in order to schedule we would need a referral, office notes and a updated demographics sheet. Project Scheduler also gave patient the referrals fax number of [phone]. Patient was understanding. Please advise [facility] Telephone encounter Note* Telephone Encounter - Marcella Jones - 07/27/2023 3:25 PM EST Patient contacted our office to schedule appointment, however, we have not received patients referral. Project Scheduler explained that in order to schedule we would need a referral, office notes and a updated demographics sheet. Project Scheduler also gave patient the referrals fax number of [phone]. Patient was understanding. Please advise [facility]11-27-[facility] Evaluation note* Encounter Date Diagnosis Assessment Notes Treatment Notes Treatment Clinical Notes Apr, Type 2 diabetes mellitus with hyperglycemia (ICD-10 - E11.65) 1. Uncontrolled, a Type 2 diabetes with A1c of 9.1%. 2. Blood glucose levels significantly higher. According to [employer] 2 cgm download 05/11/2023-05/24/20 23: Avg glucose [...] f/u with pcp for further recommendation. Apr, shelter current use of insulin (ICD-10 - Z79.4) Apr, Vitamin B 12 deficiency (ICD-10 - E53.8) 08/2022 vit b 12 388 Apr, BMI 27.0-27.9,adult (ICD-10 - Z68.27) see above [facility] Other 08-14-2023 Evaluation note* Encounter Date Diagnosis [...] f/u with pcp for further recommendation. Jan, shelter current use of insulin (ICD-10 - Z79.4) Jan, Vitamin B 12 deficiency (ICD-10 - E53.8) 08/2022 vit b 12 388 Jan, BMI 27.0-27.9,adult (ICD-10 - Z68.27) see above [facility] Other 04-26-2023 Evaluation note* Encounter Date Diagnosis Assessment Notes Treatment Notes Treatment Clinical Notes Sep, Type 2 diabetes mellitus with hyperglycemia (ICD-10 - E11.65) 1. Controlled, a Type 2 diabetes with A1c of 6.5%. 2. Blood glucose levels according to [employer] 2 cgm download 10/08/2022-10/21/2022 : Avg glucose 166. >250-2%, >180-31%, 70-180-67%, <70-0%, <54-0%. CV 22.6%. Reviewed download with pt, glucose often above target from higher carb load. Pt admits to not taking care of himself, his currently in shelter. Recommend continue to hold levemir; however, if [...] f/u with pcp for further recommendation. Sep, shelter current use of insulin (ICD-10 - Z79.4) Sep, Vitamin B 12 deficiency (ICD-10 - E53.8) 08/2022 vit b 12 388 Sep, BMI 26.0-26.9,adult (ICD-10 - Z68.26) 6 pound weight loss from last visit, continue with weight loss efforts Sep, Wound of right foot (ICD-10 - S91.301A) Referral to Dr. Dimas [facility] Other 01-24-2023 History of Present illness Narrative* [...] As Directed March 31, 2019 10:06am 03-31-2019 [facility] ([id number]) busPIRone (BUSPAR) 10 mg tablet Take 10 mg by mouth three times daily. QUEtiapine (SEROQUEL) 50 mg tablet Take 50 mg by mouth twice daily. 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 06/04/2020 CT chest ([facility]) Stable findings. 06/04/2020 CT abdomen/pelvis ([facility]) No malignant or metastatic disease. Tiny liver and left renal cyst. Enlarged prostate. Cholelithiasis. 07/06/2019 Bone density exam ([facility]) Normal/osteopenia of left femoral neck and forearm [...] CC: Dr. Brandy Banks [facility]* Encounter Date Diagnosis Assessment [...] (hypertension) (ICD-10 - I10) on arb Jun, shelter current use of insulin (ICD-10 - Z79.4) Jun, Hypoglycemia associated with type 2 diabetes mellitus (ICD-10 - E11.649) Jun, Vitamin B 12 deficiency (ICD-10 - E53.8) 07/2021 vit b 12 >1500 Jun, BMI 26.0-26.9,adult (ICD-10 - Z68.26) 6 pound weight loss from last visit, continue with weight loss efforts [facility] Other 09-29-2022 Evaluation note* Encounter Date Diagnosis [...] (hypertension) (ICD-10 - I10) on arb Feb, shelter current use of insulin (ICD-10 - Z79.4) Feb, Hypoglycemia associated with type 2 diabetes mellitus (ICD-10 - E11.649) Feb, Vitamin B 12 deficiency (ICD-10 - E53.8) 07/2021 vit b 12 >1500 Feb, BMI 27.0-27.9,adult (ICD-10 - Z68.27) 8 pound weight loss from last visit, continue with weight loss efforts [facility] Other 06-14-2022 Evaluation note* Encounter Date Diagnosis [...] even just a little bit - MET [facility] Other 03-16-2022 Evaluation note* Encounter Date Diagnosis [...] walking daily, even just a little bit [facility] Other 03-01-2022 Evaluation note* Encounter Date Diagnosis Assessment Notes Treatment Notes Treatment Clinical Notes Aug, Type 2 diabetes mellitus with hyperglycemia (ICD-10 - E11.65) 1. Controlled, a Type 2 diabetes with A1c of 6.9% improved from 07/14/2021 a1c was 8.5%. 2. Blood glucose levels improved from last visit. According to [employer] 2 cgm download 08/13/2021-08/26/2021: Avg glucose 132. [...] (hypertension) (ICD-10 - I10) on arb Aug, shelter current use of insulin (ICD-10 - Z79.4) Aug, Hypoglycemia associated with type 2 diabetes mellitus (ICD-10 - E11.649) Aug, Vitamin B 12 deficiency (ICD-10 - E53.8) 07/2021 vit b 12 >1500 Aug, BMI 28.0-28.9,adult (ICD-10 - Z68.28) 12 pound weight loss from last visit, continue with weight loss efforts [facility] Other 02-09-2022 Evaluation note* Encounter Date Diagnosis [...] call office if BG are running low [facility] Other 01-31-2022 Evaluation note* Encounter Date Diagnosis [...] 90-130 ac 120-180 hs. Patient does understand appge-hxozkgsz-[id number] meal dosing and adding ICS, discussed with [...] sensor sample while patient awaits shipment from [facility] Medical for Ryan order and [...] DME phone number to pt, will call [facility] consumer sales representative to check on Ryan sensor order. 90 minutes was spent on education by Isabella BAY, RN. Reviewed ryan cgm download 07/15/21-: Avg glucose 151. >250-4%, >180-16%, 70-180-80%, <70-0%, <54-0%. CV 29.7%. Noted 07/27-07/28 early am glucose <70 recommend reducing levemir by 2 units. Corinna TIMMONS, NIKOLE-C, BC-ADM [facility] Other 01-25-2022 NoteHNO ID: [id number] Author: Moise Ramos MD Service: ? Author [...] As Directed March 31, 2019 10:06am 03-31-2019 [facility] ([id number]) busPIRone (BUSPAR) 10 mg tablet Take 10 mg by mouth three times daily. QUEtiapine (SEROQUEL) 50 mg tablet Take 50 mg by mouth twice daily. insulin detemir U-100 (LEVEMIR) 100 unit/mL (3 mL) injection pen insulin detemir Insulin Detemir U-100 Active 17 UNIT Subcutaneous Daily March 31, 2019 10:08am 03-31-2019 [facility] ([id number]) tiotropium (SPIRIVA) 18 mcg inhalation capsule tiotropium Tiotropium [place] Active 2 PUFF Inhalation Daily March 31, 2019 10:06am 03-31-2019 [facility] ([id number]) losartan (COZAAR) 50 mg tablet Take 50 [...] Stoma or Indwelling Cathet (more content not included)...[facility]01-17-2022 Evaluation note* Encounter Date Diagnosis Assessment [...] ozempic, and fiasp to take place of humalog. Sent order for ryan 2 cgm to [facility]. 7. F/u apt in two weeks with life skills educator for cgm download/review log book. 8. Referral to RD Jun, Dietary counseling and surveillance (ICD-10 - Z71.3) see above Jun, Hyperlipidemia (ICD-10 - E78.5) on statin Jun, HTN (hypertension) (ICD-10 - I10) on arb Jun, tank terminal gauger current use of insulin (ICD-10 - Z79.4) Jun, Hypoglycemia associated with type 2 diabetes mellitus (ICD-10 - E11.649) Pt would greatly benefit from intermediate manager personal use of CGM device such as [...] educating the patient by Jenna Hennessy RN. [facility] Other 07-13-2021 NoteHNO ID: [id number] Author: Stephani Ruelas APRN.CORBIN Service: ? Author [...] As Directed March 31, 2019 10:06am 03-31-2019 [facility] ([id number]) busPIRone (BUSPAR) 10 mg tablet Take 10 mg by mouth three times daily. QUEtiapine (SEROQUEL) 50 mg tablet Take 50 mg by mouth twice daily. insulin detemir U-100 (LEVEMIR) 100 unit/mL (3 mL) injection pen insulin detemir Insulin Detemir U-100 Active 17 UNIT Subcutaneous Daily March 31, 2019 10:08am 03-31-2019 [facility] ([id number]) tiotropium (SPIRIVA) 18 mcg inhalation capsule tiotropium Tiotropium [place] Active 2 PUFF Inhalation Daily March 31, 2019 10:06am 03-31-2019 [facility] ([id number]) losartan (COZAAR) 50 mg tablet Take 50 [...] Once exam is comp (more content not included)...[facility] noteNo InformationNobarton county memorial hospital [employer] Other Evaluation noteNo assessment information available [facility] Work Phone: Evaluation note* Diagnosis Malignant neoplasm of descending colon (HCC)- Primary Malignant neoplasm of descending colon documented in this encounter [facility] note* Diagnosis Onset Date Resolution Status At high risk for skin breakdown acute COPD (chronic obstructive pulmonary disease) acute Diabetes acute Hyperlipemia acute Neuropathy acute PAD (peripheral artery disease) acute Ulcer of left heel acute Ulcer of right heel acute Weakness acute [facility] Work Phone: Evaluation note* Diagnosis Onset Date Resolution Status At high risk for skin breakdown acute COPD (chronic obstructive pulmonary disease) acute Diabetes acute Hyperlipemia acute Neuropathy acute PAD (peripheral artery disease) acute Ulcer of left heel acute Ulcer of right heel acute Weakness acute Ulcer of right heel acute [facility] Work Phone: Evaluation note* Diagnosis Urinary retention- Primary Unspecified retention of urine documented in this encounter [facility]* Diagnosis Onset Date Resolution Status Ulcer of right heel acute At high risk for skin breakdown acute Atherosclerosis of [place] of both lower extremities acute COPD (chronic obstructive pulmonary disease) acute Diabetes acute Hyperlipemia acute Neuropathy acute PAD (peripheral artery disease) acute Pressure ulcer of right heel, stage 3 acute Ulcer of left heel acute Ulcer of right heel acute Weakness acute [facility] Work Phone: Evaluation note* Diagnosis Onset Date Resolution Status Ulcer of right heel acute At high risk for skin breakdown acute Atherosclerosis of [place] of both lower extremities acute COPD (chronic obstructive pulmonary disease) acute Diabetes acute Hyperlipemia acute Neuropathy acute PAD (peripheral artery disease) acute Pressure ulcer of right heel, stage 3 acute Ulcer of left heel acute Ulcer of right heel acute Weakness acute PAD (peripheral artery disease) acute [facility] Work Phone: Evaluation note* Diagnosis Onset Date Resolution Status At high risk for skin breakdown acute Atherosclerosis of [place] of both lower extremities acute COPD (chronic obstructive pulmonary disease) acute Diabetes acute Hyperlipemia acute Neuropathy acute PAD (peripheral artery disease) acute Pressure ulcer of right heel, stage 3 acute Ulcer of left heel acute Ulcer of right heel acute Weakness acute PAD (peripheral artery disease) acute Atherosclerosis of [place] of both lower extremities acute [facility] Work Phone: History general Narrative - [...] Surgical History Cataract Hospitalization History lumbar fx [place] [employer] Other InstructionsNot on filedocumented in this encounter [facility] [employer] SystemInstructions* Attachments The following attachments cannot be sent through Care Everywhere. * Chronic obstructive pulmonary disease (COPD) ([place]) documented in this encounterOhioHealthIntent [facility] SystemReason for visit Narrative Referral from Kota Hyman, New patient Type 2 IDDM apt with [employer] BLACK LEATHER BUFFER, SENIOR TECHNICAL SUPPORT ENGINEER-C, BC-ADMNort [employer] Other Summary Purpose Family History Relationship Condition [...] by wound care for abnormal pvr at [facility] Reason for Visit At high risk for ski n breakdown COPD (chronic obstructive pulmonary disease) Diabetes Hyperlipemia Neuropathy PAD (peripheral artery disease) Ulcer of left heel Ulcer of right heel Weakness Chief Complaint e11.59 i70.245 i70.2 35 cath issues Open Wound Referred by wound care for abnormal pvr at [facility] PAD w/ Right Heel Ulcer PAD w/ Right Heel Ulcer Reason for Visit At high risk for ski n breakdown COPD (chronic obstructive pulmonary disease) Diabetes Hyperlipemia Neuropathy PAD (peripheral artery disease) Ulcer of left heel Ulcer of right heel Weakness Ulcer of right heel Chief Complaint e11.59 i70.245 i70.2 35 cath issues Referred by wound care for abnormal pvr at [facility] PAD w/ Right Heel Ulcer PAD w/ Right Heel Ulcer Open Wound - [facility] [phone] I73.9 4 WK F/U ANGIOGRAM/ANGIOPLASTY; AZUL LEFT LEG Reason for Visit Ulcer of right heel At high risk for skin breakdown Atherosclerosis of [place] artery of both lower extremities COPD (chronic obstructive pulmonary disease) Diabetes Hyperlipemia Neuropathy PAD (peripheral artery disease) Pressure ulcer of right heel, stage 3 Ulcer of left heel Ulcer of right heel Weakness Chief Complaint e11.59 i70.245 i70.2 35 cath issues Referred by wound care for abnormal pvr at [facility] PAD w/ Right Heel Ulcer PAD w/ Right Heel Ulcer Open Wound - [facility] [phone] I73.9 4 WK F/U ANGIOGRAM/ANGIOPLASTY; AZUL LEFT LEG Reason for Visit Ulcer of right heel At high risk for skin breakdown Atherosclerosis of [place] artery of both lower extremities COPD (chronic obstructive pulmonary disease) Diabetes Hyperlipemia Neuropathy PAD (peripheral artery disease) Pressure ulcer of right heel, stage 3 Ulcer of left heel Ulcer of right heel Weakness PAD (peripheral artery disease) Chief Complaint e11.59 i70.245 i70.2 35 cath issues Referred by wound care for abnormal pvr at [facility] PAD w/ Right Heel Ulcer PAD w/ Right Heel Ulcer [facility] [phone] I73.9 4 WK F/U ANGIOGRAM/ANGIOPLASTY; AZUL LEFT LEG Unknown Reason for Visit Ulcer of right heel At high risk for skin breakdown Atherosclerosis of [place] artery of both lower extremities COPD (chronic obstructive pulmonary disease) Diabetes Hyperlipemia Neuropathy PAD (peripheral artery disease) Pressure ulcer of right heel, stage 3 Ulcer of left heel Ulcer of right heel Weakness PAD (peripheral artery disease) Chief Complaint PAD w/ Right Heel Ul cer PAD w/ Right Heel Ulcer Open Wound - [facility] [place] [phone] I73.9 4 WK F/U ANGIOGRAM/ANGIOPLASTY; AZUL LEFT LEG Unknown 2 MONTH WOUND CHECK (NO TESTING) Reason for Visit At high risk for ski n breakdown Atherosclerosis of [place] artery of both lower extremities COPD (chronic obstructive pulmonary disease) Diabetes Hyperlipemia Neuropathy PAD (peripheral artery disease) Pressure ulcer of right heel, stage 3 Ulcer of left heel Ulcer of right heel Weakness PAD (peripheral artery disease) Atherosclerosis of [place] artery of both lower extremities Reason for Referral Reason Right second toe ulc er Diagnosis 1 Type 2 diabetes philip itus with hyperglycemia (E11.65) Referral Organization [facility] Referring Provider First Name Delores Referring Provider Last Name Emiliano Referring Provider Specialty Nurse Pract itioner Referred Organization [facility] Referred Provider SUZE LEVIN Referred Address ,[place], [place],[address] Referred Provider Specialty Podiatry - S urgical Chiropody Referral Priority Routine Referral Appointment Date 2022-10-30 General Notes Sammie Price 09/27 02:29:42 PM >spoke to Sarah. Appt 10/30/22 at 10am in the [place] office. Will put patient on a cancellation for sooner appt. Additional Source Comments (unrecognized sect ion and content) No Status Records FoundNo Status Records FoundNo Status Records FoundNo Status Records FoundNo Status Records FoundNo Status Records FoundNo Status Records Found INFORMATION SOURCE (unrecogn ized section and content) DATE CREATED AUTHOR 07/26/2021 [facility] DATE CREATED AUTHOR AUTHOR'S ORGANIZ ATION 09/30/2023 [facility] DATE CREATED AUTHOR AUTHOR'S ORGANIZ ATION 11/10/2023 [facility] DATE CREATED AUTHOR AUTHOR'S ORGANIZ ATION 11/18/2023 [facility] DATE CREATED AUTHOR AUTHOR'S ORGANIZ ATION 11/22/2023 [facility] DATE CREATED AUTHOR AUTHOR'S ORGANIZ ATION 11/22/2023 [facility] DATE CREATED AUTHOR AUTHOR'S ORGANIZ ATION 12/01/2023 [facility] REASON FOR VISIT (unrecogniz ed section and content) Reason Comments Colon Cancer Follow up Reason Onset Date Comments referral 07/27/2023 Reason Comments Urinary Retention Care Teams (unrecognized sec tion and content) Team Status: Active Member Role Status Dates oKta Hyman APRN HISTORIC INTERPRETER-C Primary Care Provider, Attend ing Provider Active Team Status: Inactive Member Role Status Dates Kota Hyman APRN HISTORIC INTERPRETER-C Primary Care Provider, Attend ing Provider Active Team Status: Active Member Role Status Dates Kota Hyman APRN HISTORIC INTERPRETER-C Primary Care Provider Active Team Status: Inactive Member Role Status Dates Kota Hyman APRN HISTORIC INTERPRETER-C Primary Care Provider Active Brandy Banks MD Attending Provider Active Web Operations Specialist Relationship Specialty Start Date End Date Kota Hyman CNP [address] [place] [address] PCP - General Internal Medicine 12/16/17 Web Operations Specialist Relationship Specialty Start Date End Date Kota Hyman APRN-CORBIN [address] [place] [address] PCP - General Family Medicine 05/04/23 Team Status: Inactive Member Role Status Dates Delores Cummings APRN Attending Provider Active Start: May 24, 2023 End: May 24, 2023 Team Status: Inactive Member Role Status Dates Kota Hyman APRN HISTORIC INTERPRETER-C Primary Care Shanika kearney Attending Provider Active Start: May 24, 2023 End: May 24, 2023 Team Status: Inactive Member Role Status Dates Kota Hyman APRN HISTORIC INTERPRETER-C Primary Care Provider Active Start: August 26, 2023 End: August 26, 2023 Martha Wilkes APRN Attending Provider Active St art: August 26, 2023 End: August 26, 2023 Team Status: Inactive Member Role Status Dates Kota Hyman APRN HISTORIC INTERPRETER-C Primary Care Provider Active Start: August 28, 2023 End: August 28, 2023 Jose Enrique Almendarez DO Emergency Provider Active St art: August 28, 2023 End: August 28, 2023 Team Status: Active Member Role Status Dates Kota Hyman APRN HISTORIC INTERPRETER-C Primary Care Provider Active Start: September 09, 2023 Martha Wilkes APRN Attending Provider Active St art: September 09, 2023 Team Status: Inactive Member Role Status Dates Kota Hyman APRN HISTORIC INTERPRETER-C Primary Care Provider Active Start: September 09, 2023 End: September 09, 2023 Steven Horta MD Attending Provider Active Start: September 09, 2023 End: September 09, 2023 Martha Wilkes APRN Referring Provider Active St art: September 09, 2023 End: September 09, 2023 Team Status: Inactive Member Role Status Dates Kota Hyman APRN HISTORIC INTERPRETER-C Primary Care Provider Active Start: September 13, 2023 End: September 13, 2023 Steven Horta MD Attending Provider Active Start: September 13, 2023 End: September 13, 2023 Team Status: Active Member Role Status Dates Kota Hyman APRN HISTORIC INTERPRETER-C Primary Care Provider Active Start: September 13, 2023 Steven Horta MD Attending Prov ider, Other Provider Active Start: September 13, 2023 Web Operations Specialist Relationship Specialty Start Date End Date Kota Hyman APRN-[employer] [address] [place] [id number] PCP - General Family Medicine 05/04/23 Team Status: Active Member Role Status Dates Kota Hyman APRN HISTORIC INTERPRETER-C Primary Care Provider Active Start: September 30, 2023 Martha Wilkes APRN Active Start: A pril 2023 Beau Presley DPM (WND) Attending Provider Active Start: September 30, 2023 Team Status: Active Member Role Status Dates Kota Hyman APRN HISTORIC INTERPRETER-C Primary Care Provider Active Start: October 07, 2023 Steven Horta MD Attending Provider Active Start: October 07, 2023 Team Status: Inactive Member Role Status Dates Kota Hyman APRN HISTORIC INTERPRETER-C Primary Care Provider Active Start: October 07, 2023 End: October 07, 2023 Steven Horta MD Attending Provider Active Start: October 07, 2023 End: October 07, 2023 Team Status: Inactive Member Role Status Dates Kota Hyman APRN HISTORIC INTERPRETER-C Primary Care Provider Active Start: September 30, 2023 End: September 30, 2023 Martha Wilkes APRN Active Start: A prijeanie 2023 End: September 30, 2023 Beau Presley DPM (WND) Attending Provider Active Start: September 30, 2023 End: September 30, 2023 Team Status: Inactive Member Role Status Dates Kota Hyman APRN HISTORIC INTERPRETER-C Primary Care Provider Active Start: November 18, 2023 End: November 18, 2023 Hubert Strickland DPM MS Attending Provider Active Start: November 18, 2023 End: November 18, 2023 Team Status: Inactive Member Role Status Dates Kota Hyman APRN HISTORIC INTERPRETER-C Primary Care Provider Active Start: December 09, [...] or prosecute any alcohol or drug abuse patient.[facility] FOR RECORDS PERTAINING TO PATIENTS WHO [...] BE BASED ON THE PRIMARY CLINICAL RECORDS. [facility] [employer] [facility]. provides no warranty or guarantee of the accuracy or completeness of information in this document.
== END 2023-12-21 15:55 | disposition home or self-care (01) ==
LOC: WC 15:55
PROVIDERS: Family Provider Family Medicine; PCP Nurse Practitioner Adult Health; Visit Provider Podiatrist Foot & Ankle Surgery
DX: E11.621 Type 2 diabetes mellitus with foot ulcer (principal); L97.412 Non-pressure chronic ulcer of right heel and midfoot with fat layer exposed
CPT/HCPCS: 11042; A6213

== ENCOUNTER 2024-01-18 15:54 | Outpatient (OUT) | payer MEDICARE, MEDICAID, SELFPAY | END 2024-01-18 15:55 | disposition home or self-care (01) | LOC: WC 15:54 | PROVIDERS: Family Provider Family Medicine; PCP Nurse Practitioner Adult Health; Visit Provider Podiatrist Foot & Ankle Surgery | DX: E11.621 Type 2 diabetes mellitus with foot ulcer (principal); L97.412 Non-pressure chronic ulcer of right heel and midfoot with fat layer exposed | CPT/HCPCS: G0463 ==